=== PATIENT | male | born 1955 | race Caucasian/White ===

== ENCOUNTER 2018-05-22 11:59 | Inpatient (IN) | payer OTHER ==
--- NOTE | 2018-05-22 12:20 | PDOC ---
Attending Attestation - HPI HPI: 05/22/18 12:48 The patient is a 63-year-old male with significant past medical history of CHF, asthma, a fib, DM, hypercholeserolemia, anxiety, and depression, who presents to the emergency department today complaining of 4 days of diarrhea and shortness of breath. He describes his shortness of breath as similar to an episode in the past related to his CHF. The patient states that he has been non- compliant with his prescribed medications but took Tylenol yesterday. He also reports anterior sternal chest pain described as pressure. He endorses symptoms of headache, lightheadedness, and chills. He is currently incontinent and nauseous. Denies fever, diaphoresis. Allergies: NKA Social history: former cigarette smoker Surgical history: cardiac stent, tonsillectomy Family history: none reported PCP: unknown. - Physicial Exam PE: 05/22/18 12:36 ADULT Vitals: Triage vital signs reviewed General Appearance: (+)In acute distress, coughing. Well nourished, well developed Head: Atraumatic Cardiac: Regular rate and rhythm, no murmurs, no rubs, no gallops Lungs: (+) bilateral crackles at 2/3. Clear to auscultation bilateral, good air movement bilaterally Abdomen: Soft, nondistended, normal bowel sounds, nontender to palpation Extremities: (+) 1+ pitting edema bilateral lower extremities. Full range of motion to all extremities, no cyanosis, clubbing, or edema Skin: Warm and dry, no new rashes or lesions, no petechiae Neuro: AOX3; Cranial Nerves 2-12 grossly intact, Strength intact to all extremities, Sensation intact to all extremities, gait normal Psych: Normal mood, normal affect - Medical Decision Making 05/22/18 13:04 Documentation prepared by Jane Navarro, acting as medical territory manager for Jarret Miller MD. <Jane Navarro - Last Filed: 05/22/18 13:58> - Resident Resident Name: Nuno Sam - ED Attending Attestation I have performed the following: I have examined & evaluated the patient, The case was reviewed & discussed with the resident, I agree w/resident's findings & plan, Exceptions are as noted - Critical Care Time Total Critical Care Time: 45 Critical Care Statement: The care of this patient involved high complexity decision making to prevent further life threatening deterioration of the patient 's condition and/or to evaluate & treat vital organ system(s) failure or risk of failure. - Medical Decision Making The patient is a 63-year-old male with significant past medical history of CHF, asthma, a fib, DM, hypercholeserolemia, anxiety, and depression, who presents to the emergency department today complaining of 4 days of diarrhea and shortness of breath. He describes his shortness of breath as similar to an episode in the past related to his CHF. The patient states that he has been non- compliant with his prescribed medications but took Tylenol yesterday. He also reports anterior sternal chest pain described as pressure. He endorses symptoms of headache, lightheadedness, and chills. He is currently incontinent and nauseous. Patient presents to the emergency department in atrial fibrillation with RVR hypotensive and clinically with CHF exacerbation Given his hypotension we'll treat with Diltiazem drip starting at 5 mg/m and small dose Lasix Cardiology Dr. Us at bedside. Recommends second dose of Lasix and titrating up diltiazem Case discussed with patients primary care provider Dr. Do. We'll admit to telemetry for [place] for further management. <Jarret Miller - Last Filed: 05/22/18 16:51>
--- NOTE | 2018-05-22 12:31 | PDOC ---
History of Present Illness <PaulJarret - Last Filed: 05/22/18 14:12> - General History Source: Patient Exam Limitations: No Limitations - History of Present Illness Initial Comments: The patient is a 63M with a history of a-fib (Pradaxa), CHF (40-45%), and T2DM who presents with 4 days of worsening shortness of breath associated with a productive cough, chills, HAJI, mild substernal/non-radiating chest pressure, and BLE swelling. He denies fevers, dizziness, blurry vision, or abdominal pain. He states this feels like CHF exacerbations he has had in the past. Further, he states that he has not been taking his Pradaxa since he was recently discharged about a week ago 2/2 not being able to get it filled. He denies sick contacts. His magazine designer is Dr. Garber. 05/22/18 12:30 Timing/Duration: getting worse (4 days) Severity: moderate Associated Symptoms: reports: chest pain, cough, headaches, malaise. denies: syncope <Nuno Sam - Last Filed: 05/22/18 14:49> - General Chief Complaint: Shortness of Breath Stated Complaint: DIARRHEA Past History <PaulJarret - Last Filed: 05/22/18 14:12> - Travel Traveled outside of the country in the last 30 days: No Close contact w/someone who was outside of country & ill: No - Past Medical History Asthma: Yes Cardiac Disorders: Yes (A.fib) COPD: No CHF: Yes Diabetes: Yes HTN: Yes Hypercholesterolemia: Yes Psychiatric Problems: Yes (anxiety/depression) - Surgical History Cardiac Surgery: Yes (Cardiac Stent) Orthopedic Surgery: Yes - Suicide/Smoking/Psychosocial Hx Smoking History: Former smoker Have you smoked in the past 12 months: No Number of Cigarettes Smoked Daily: 4 Information on smoking cessation initiated: No 'Breaking Loose' booklet given: 02/07/18 Hx Alcohol Use: No Drug/Substance Use Hx: No Substance Use Type: None Hx Substance Use Treatment: No <Nuno Sma - Last Filed: 05/22/18 14:49> - Past Medical History Allergies/Adverse Reactions: Allergies Allergy/AdvReac Type Severity Reaction Status Date / Time No Known Allergies Allergy Verified 05/22/18 12:02 Home Medications: Ambulatory Orders Acetaminophen [Tylenol] 650 mg PO QID PRN 02/07/18 Albuterol 2.5/Ipratropium 0.5 [Duoneb -] 1 neb IH QID PRN 02/07/18 Albuterol 2.5/Ipratropium 0.5 [Duoneb -] 1 neb IH TID 02/07/18 Albuterol Sulfate Inhaler - [Ventolin Hfa Inhaler -] 1 - 2 inh PO Q4H 02/07/18 Aspirin 81 mg PO DAILY 02/07/18 Atorvastatin Calcium 40 mg PO HS 02/07/18 Fluticasone/Salmeterol [Advair Hfa 115-21 Mcg Inhaler] 2 inh PO BID 02/07/18 Guaifenesin [Diabetic Tussin Ex] 15 ml PO TID 02/07/18 Isosorbide Mononitrate 60 mg PO DAILY 02/07/18 Mag Hydrox/Al Hydrox/Simeth [Mylanta Oral Suspension -] 30 ml PO Q6H PRN Magnesium Oxide 800 mg PO DAILY 02/07/18 Methocarbamol [Robaxin -] 500 mg PO DAILY 02/07/18 Metoprolol Tartrate 100 mg PO BID 02/07/18 Mirtazapine [Remeron -] 15 mg PO HS 02/07/18 Montelukast Na [Singulair -] 10 mg PO DAILY 02/07/18 Polyethylene Glycol 3350 [Miralax 255 gm Btl -] 17 gm PO DAILY 02/07/18 Potassium Chloride [K-Tab ER] 20 meq PO DAILY 02/07/18 Ranitidine [Zantac -] 150 mg PO BID 02/07/18 Sennosides [Senna -] 2 tab PO HS 02/07/18 Trazodone HCl 100 mg PO HS 02/07/18 Albuterol Sulfate 0.042% [Ventolin 0.042% (Half-Strength) -] 1 amp NEB RQID amp 02/14/18 Amox-Tr/K Cl [Augmentin - 500Mg Tablet] 1 tab PO BID #14 tab 02/14/18 Dabigatran Etexilate Mesylate [Pradaxa -] 150 mg PO BID cap 02/14/18 Insulin Sliding Scale [Novolog Vial Sliding Scale -] 1 vial SQ ACHS units 02/14 Ipratropium 0.02% Nebulizer [Atrovent 0.02% Nebulizer -] 1 amp NEB RQID amp 04/28 Potassium Chloride [K-Dur -] 20 meq PO DAILY tablet.er 02/14/18 predniSONE [Deltasone -] 40 mg PO DAILY #30 tablet 02/14/18 Review of Systems - Review of Systems Able to Perform ROS?: Yes Is the patient limited Hungarian proficient: No Constitutional: Yes: Chills. No: Fever HEENTM: No: Blurred Vision, Double Vision, Nose Congestion, Throat Swelling Respiratory: Yes: Cough, Shortness of Breath, Wheezing, Productive cough. No: Hemoptysis Cardiac (ROS): Yes: Chest Pain, Edema, Irregular Heart Rate, Lightheadedness. No: Palpitations, Syncope ABD/GI: Yes: Diarrhea (without blood), Nausea. No: Abdominal Distended, Vomiting, Tarry Stools : No: Burning, Dysuria, Hematuria, Incontinence Musculoskeletal: No: Joint Swelling, Muscle Pain, Muscle Weakness Integumentary: No: Pruritus, Rash Neurological: Yes: Headache. No: Numbness, Paresthesia Psychiatric: No: Anxiety, Depression Endocrine: No: Intolerance to Cold, Intolerance to Heat Hematologic/Lymphatic: No: Anemia, Blood Clots <Nuno Sam - Last Filed: 05/22/18 14:49> *Physical Exam - Vital Signs Last Vital Signs Temp Pulse Resp BP Pulse Ox 98.7 F 163 H 24 140/118 97 05/22/18 12:02 05/22/18 13:28 05/22/18 12:02 05/22/18 13:28 05/22/18 12:02 <Jarret Miller - Last Filed: 05/22/18 14:12> - Vital Signs Last Vital Signs Temp Pulse Resp BP Pulse Ox 98.7 F 130 H 24 97/67 97 05/22/18 12:02 05/22/18 12:02 05/22/18 12:02 05/22/18 12:02 05/22/18 12:02 - Physical Exam General Appearance: Yes: Nourished, Moderate Distress (respiratory) HEENT: positive: EOMI, MARU, Normal Voice. negative: Scleral Icterus (R), Scleral Icterus (L) Neck: positive: Trachea midline, Supple. negative: Lymphadenopathy (R), Lymphadenopathy (L) Respiratory/Chest: positive: Respiratory Distress (moderate), Crackles ( bilateral, 2/3 up the lung bases) Cardiovascular: positive: Edema (1+ BLE to the mid lee), Tachycardia, Irregularly Irregular Vascular Pulses: Femoral (R): 2+, Femoral (L): 2+, Carotid (R): 2+, Carotid (L) : 2+, Dorsalis-Pedis (R): 2+, Doralis-Pedis (L): 2+ Gastrointestinal/Abdominal: positive: Normal Bowel Sounds, Soft, Protuberent. negative: Rebound, Tenderness Musculoskeletal: positive: Normal Inspection. negative: CVA Tenderness Extremity: positive: Normal Capillary Refill, Normal Range of Motion. negative : Cyanosis Integumentary: positive: Dry, Warm Neurologic: positive: Fully Oriented, Alert, Motor Strength 5/5 <Nuno Sam - Last Filed: 05/22/18 14:49> ED Treatment Course - LABORATORY CBC & Chemistry Diagram: 05/22/18 13:05 - ADDITIONAL ORDERS Additional order review: Laboratory Results 05/22/18 05/22/18 05/22/18 13:05 13:05 13:05 Sodium Potassium Chloride Carbon Dioxide Anion Gap BUN Creatinine Creat Clearance w eGFR Random Glucose Lactic Acid 2.5 H* Calcium Total Bilirubin AST ALT Alkaline Phosphatase Troponin I 0.04 D B-Natriuretic Peptide 4399.92 H Total Protein Albumin 05/22/18 13:05 Sodium 138 Potassium 3.4 L Chloride 99 Carbon Dioxide 29 Anion Gap 10 BUN 12 Creatinine 0.8 Creat Clearance w eGFR > 60 Random Glucose 110 H D Lactic Acid Calcium 7.8 L Total Bilirubin 1.0 AST 44 H D ALT 24 D Alkaline Phosphatase 182 H Troponin I B-Natriuretic Peptide Total Protein 7.4 Albumin 2.5 L - RADIOLOGY Radiology Studies Ordered: Category Date Time Status CHEST X-RAY PORTABLE* [RAD] Stat Radiology 05/22/18 12:18 Completed - Medications Given in the ED: ED Medications Discontinued Medications Generic Name Dose Route Start Last Admin Trade Name Freq PRN Reason Stop Dose Admin Furosemide 40 mg 05/22/18 12:39 05/22/18 13:10 Lasix Injection - IVPB 05/22/18 12:40 40 mg ONCE ONE Administration Ondansetron HCl 4 mg 05/22/18 13:26 05/22/18 13:36 Zofran Injection IVPUSH 05/22/18 13:27 4 mg ONCE ONE Administration <Jarret Miller - Last Filed: 05/22/18 14:12> - LABORATORY CBC & Chemistry Diagram: 05/22/18 13:05 <Nuno Sam - Last Filed: 05/22/18 14:49> Medical Decision Making - Medical Decision Making The patient is a 63M with a history of a-fib, CHF, and T2DM who presents with 4 days of worsening shortness of breath, BLE swelling, cough, and 1 day of non- radiating substernal chest pain and HAJI who has also not taken his Pradaxa since being discharged approximately 1 week ago. Ddx: PE, PNA, PNX, CHF exacerabtion, COPD exacerbation, Severe Sepsis, Septic shock, cardiogenic shock ED course: CBC, CMP, BNP, Blood cultures, UA, Urine culture, CXR, CT PE protocol Diltiazem gtt started at 5mg/hour, the patient's pressure improved and was titrated slowly up to 10mg/hr and then 15mg/hr The patient was also given Lasix 40mg IVP once for hypervolemia The patient's BNP is elevated. The patient's BP improved s/p diltiazem gtt initiation. The Cr is 0.8 and the patient also received and additional Lasix 60mg IVP once s/p evaluation by Cardiology. Dispo: Admission to floor with telemetry under Dr. Wooten for CHF exacerbation. 05/22/18 12:58 <Nuno Sam - Last Filed: 05/22/18 14:49> *DC/Admit/Observation/Transfer - Discharge Dispostion Decision to Admit order: Yes <Jarret Miller - Last Filed: 05/22/18 14:12> - Discharge Dispostion Decision to Admit order: Yes <Nuno Sam - Last Filed: 05/22/18 14:49> Diagnosis at time of Disposition: CHF exacerbation Qualifiers: Heart failure type: unspecified Qualified Code(s): I50.9 - Heart failure, unspecified
[2018-05-22] MEDS ORDERED: FUROSEMIDE 100 MG/10 ML INJECTABLE VIAL IVPB ONE (12:39)
[2018-05-22] MEDS ORDERED: FUROSEMIDE 40 MG/4 ML INJECTABLE VIAL ONE ×2 (12:58→14:46)
[2018-05-22] MEDS ORDERED: dilTIAZem HCL 125 MG/25 ML - 25 ML VIAL ONE (12:59)
[2018-05-22] MEDS ORDERED: dilTIAZem HCL 50 MG/10 ML - 10 ML VIAL ONE (13:00)
[2018-05-22] MEDS: DILTIAZEM INJECTION 125 MG in SODIUM CHLORIDE 100 ML IVPB SCH (13:26)
[2018-05-22] MEDS ORDERED: ONDANSETRON 4 MG/2 ML VIAL IVPUSH ONE (13:26)
[2018-05-22] MEDS ORDERED: ONDANSETRON 4 MG/2 ML VIAL ONE (13:27)
[2018-05-22] MEDS ORDERED: ACETAMINOPHEN 1000 MG/100 ML VIAL (NON FORMULARY) IVPB ONE (13:28)
[2018-05-22 13:52] LABS: ALBUMIN 2.5 g/dl (3.4-5.0); ANION GAP 10 (8-16); BLOOD UREA NITROGEN 12 mg/dL (7-18); CALCIUM 7.8 mg/dL (8.5-10.1); CHLORIDE 99 mmol/L (98-107); CO2 29 mmol/L (21-32); CREATININE 0.8 mg/dL (0.7-1.3); GLUCOSE,RANDOM 110 mg/dL (74-106); SGPT/ALT 24 U/L (12-78); SODIUM 138 mmol/L (136-145); TOT PROT 7.4 g/dl (6.4-8.2)
[2018-05-22 13:53] LABS: ALK PHOS 182 U/L (45-117)
[2018-05-22 13:56] LABS: POTASSIUM 3.4 mmol/L (3.5-5.1); SGOT/AST 44 U/L (15-37)
[2018-05-22] MEDS ORDERED: FUROSEMIDE 40 MG/4 ML INJECTABLE VIAL IVPUSH ONE (13:56)
[2018-05-22 14:08] LABS: INR 1.17 (0.82-1.09); PROTHROMBIN TIME (PATIENT) 13.2 SEC (9.7-13.0)
[2018-05-22 14:11] LABS: ACTIVATED PTT 41.4 SECONDS (25.2-36.5)
[2018-05-22 14:44] LABS: URINE APPEARANCE CLEAR; URINE BILIRUBIN NEGATIVE (<2.0 mg/dL); URINE COLOR STRAW; URINE GLUCOSE (UA) NEGATIVE (NEGATIVE); URINE KETONE NEGATIVE (NEGATIVE); URINE LEUK ESTERASE NEGATIVE (NEGATIVE); URINE NITRITE NEGATIVE (NEGATIVE); URINE PROTEIN NEGATIVE (NEGATIVE); URINE UROBILINOGEN NEGATIVE mg/dL (0.2-1.0)
[2018-05-22] MEDS ORDERED: ACETAMINOPHEN INJECTION 100 ML IVPB ONE (14:46)
[2018-05-22 14:57] LABS: BASO % 0.6 % (0-2.0); EOS % 0.1 % (0-4.5); HEMATOCRIT 43.9 % (35.4-49); HEMOGLOBIN 14.2 GM/dL (11.7-16.9); LYMPH % 7.7 % (8-40); MCH 28.3 pg (25.7-33.7); MCHC 32.3 g/dl (32.0-35.9); MEAN CELL VOLUME 87.5 fl (80-96); MEAN PLT VOLUME 8.6 fl (7.5-11.1); MONO % 11.5 % (3.8-10.2); NEUT % 80.1 % (42.8-82.8); PLATELET COUNT 241 K/MM3 (134-434); RBC 5.01 M/mm3 (4.00-5.60); RDW 17.6 % (11.9-15.9); WHITE BLOOD COUNT 7.2 K/mm3 (4.0-10.0)
--- NOTE | 2018-05-22 14:57 | CON.CARD ---
Consult Consult Specialty:: cardiology Referred by:: Sugar Reason for Consultation:: Rapid atrial fibrillation and shortness of breath - History of Present Illness Chief Complaint: Shortness of breath History of Present Illness: The patient is a 63-year-old obese man, with a history of diabetes, hypertension , hyperlipidemia, chronic atrial fibrillation on Pradaxa, noncompliant, now presenting with generalized malaise, productive cough and chills with shortness of breath, and rapid atrial fibrillation. Patient had relative hypotension. - History Source History Provided By: Patient, Medical Record Limitations to Obtaining History: No Limitations - Past Medical History Cardio/Vascular: Yes: AFIB, CAD, HTN, Other (atrial fibrillation) Pulmonary: Yes: COPD Infectious Disease: Yes: Other (pneumonia and the flu) - Alcohol/Substance Use Hx Alcohol Use: No - Smoking History Smoking history: Former smoker Have you smoked in the past 12 months: No Aproximately how many cigarettes per day: 4 Home Medications - Allergies Allergies/Adverse Reactions: Allergies Allergy/AdvReac Type Severity Reaction Status Date / Time No Known Allergies Allergy Verified 05/22/18 12:02 - Home Medications Home Medications: Ambulatory Orders Acetaminophen [Tylenol] 650 mg PO QID PRN 02/07/18 Albuterol 2.5/Ipratropium 0.5 [Duoneb -] 1 neb IH QID PRN 02/07/18 Albuterol 2.5/Ipratropium 0.5 [Duoneb -] 1 neb IH TID 02/07/18 Albuterol Sulfate Inhaler - [Ventolin Hfa Inhaler -] 1 - 2 inh PO Q4H 02/07/18 Aspirin 81 mg PO DAILY 02/07/18 Atorvastatin Calcium 40 mg PO HS 02/07/18 Fluticasone/Salmeterol [Advair Hfa 115-21 Mcg Inhaler] 2 inh PO BID 02/07/18 Guaifenesin [Diabetic Tussin Ex] 15 ml PO TID 02/07/18 Isosorbide Mononitrate 60 mg PO DAILY 02/07/18 Mag Hydrox/Al Hydrox/Simeth [Mylanta Oral Suspension -] 30 ml PO Q6H PRN Magnesium Oxide 800 mg PO DAILY 02/07/18 Methocarbamol [Robaxin -] 500 mg PO DAILY 02/07/18 Metoprolol Tartrate 100 mg PO BID 02/07/18 Mirtazapine [Remeron -] 15 mg PO HS 02/07/18 Montelukast Na [Singulair -] 10 mg PO DAILY 02/07/18 Polyethylene Glycol 3350 [Miralax 255 gm Btl -] 17 gm PO DAILY 02/07/18 Potassium Chloride [K-Tab ER] 20 meq PO DAILY 02/07/18 Ranitidine [Zantac -] 150 mg PO BID 02/07/18 Sennosides [Senna -] 2 tab PO HS 02/07/18 Trazodone HCl 100 mg PO HS 02/07/18 Albuterol Sulfate 0.042% [Ventolin 0.042% (Half-Strength) -] 1 amp [facility] RQID amp 02/14/18 Amox-Tr/K Cl [Augmentin - 500Mg Tablet] 1 tab PO BID #14 tab 02/14/18 Dabigatran Etexilate Mesylate [Pradaxa -] 150 mg PO BID cap 02/14/18 Insulin Sliding Scale [Novolog Vial Sliding Scale -] 1 vial SQ ACHS units 02/14 Ipratropium 0.02% Nebulizer [Atrovent 0.02% Nebulizer -] 1 amp NEB RQID amp 04/28 Potassium Chloride [K-Dur -] 20 meq PO DAILY tablet.er 02/14/18 predniSONE [Deltasone -] 40 mg PO DAILY #30 tablet 02/14/18 Review of Systems - Review of Systems Constitutional: reports: Chills, Diaphoresis, Lethargy, Malaise Eyes: reports: No Symptoms HENT: reports: No Symptoms Neck: reports: No Symptoms Cardiovascular: reports: Palpitations, Shortness of Breath Respiratory: reports: SOB Gastrointestinal: reports: No Symptoms Genitourinary: reports: No Symptoms Breasts: reports: No Symptoms Reported Musculoskeletal: reports: No Symptoms Integumentary: reports: No Symptoms Neurological: reports: No Symptoms - Risk Factors Known Risk Factors: Yes: Diabetes Mellitus, Hypercholesterolemia, Hypertension Vital Signs: Vital Signs Temperature 98.7 F 05/22/18 12:02 Pulse Rate 163 H 05/22/18 13:28 Respiratory Rate 24 05/22/18 12:02 Blood Pressure 140/118 05/22/18 13:28 O2 Sat by Pulse Oximetry (%) 97 05/22/18 12:02 Constitutional: Yes: Obese Eyes: Yes: WNL, Conjunctiva Clear, EOM Intact HENT: Yes: WNL, Atraumatic, Normocephalic Neck: Yes: WNL, Supple, Trachea Midline Respiratory: Yes: Cough, On Nasal O2, Tachypnea Gastrointestinal: Yes: WNL, Normal Bowel Sounds, Soft Renal/: Yes: WNL Cardiovascular: Yes: Tachycardia, Pulse Irregular JVD: No Carotid Bruit: No PMI: Non-Displaced Heart Sounds: Yes: S1, S2 Murmur: Yes: Systolic Murmur, Grade 2 Musculoskeletal: Yes: WNL Edema: Yes Edema: LLE: 1+, RLE: 1+ Peripheral Pulses: 1+ Left Carotid, 1+ Right Carotid, 1+ Left Femoral, 1+ Right Femoral, 1+ Left Popliteal, 1+ Right Popliteal, 1+ Left Doralis Pedis, 1+ Right Dorsalis Pedis Integumentary: Yes: WNL Neurological: Yes: WNL, Alert, Oriented Psychiatric: Yes: WNL - Other Data Labs, Other Data: CBC, BMP 05/22/18 13:05 INR, PTT INR 1.17 (0.82-1.09) H 05/22/18 13:05 Troponin, BNP 05/22/18 05/22/18 13:05 13:05 Troponin I 0.04 D B-Natriuretic Peptide 4399.92 H Troponin, BNP 05/22/18 05/22/18 13:05 13:05 Troponin I 0.04 D B-Natriuretic Peptide 4399.92 H Assessment/Plan 63-year-old obese man with a history of diabetes, hypertension, hyperlipidemia, COPD, chronic atrial fibrillation on pradaxa, noncompliant, now presenting with generalized malaise chills and shortness of breath. Found to be in rapid atrial fibrillation. Patient was initially relative hypotensive. He is in mild respiratory distress. No chest pains. Chest x-ray revealed no evidence of pneumonia and lower CHF. Most likely COPD exacerbation with mild pulmonary congestion. Give Lasix 60 mg IV, once Start a Cardizem drip. Up titrate the rate control. If blood pressure allows; would start Cardizem 30 mg by mouth every 6 hours. If blood pressure does not allow; please load with digoxin. Please arrange for an echocardiogram. Admit to a monitored setting. The patient seems to be responding to treatment.
--- NOTE | 2018-05-22 15:21 | HP ---
Admitting History and Physical - Admission Chief Complaint: sob and increased leg swelling History of Present Illness: The patient is a 63-year-old male with significant past medical history of CHF, asthma, a fib, DM, hypercholeserolemia, anxiety, and depression, who presents to the emergency department today complaining of 4 days of diarrhea and shortness of breath. He describes his shortness of breath as similar to an episode in the past related to his CHF. The patient states that he has been non- compliant with his prescribed medications but took Tylenol yesterday. He also reports anterior sternal chest pain described as pressure. He endorses symptoms of headache, lightheadedness, and chills. He is currently incontinent and nauseous. found to be in rapid afib with low BP started on cardizem drip got iv lasix 40mg then folowed by 60mg iv lasix above history from medical record i tried to ask patient questions but he says he is sick and cannot talk only was able to tell me that he is short of breath and increased leg swelling History Source: Medical Record - Past Medical History Cardiovascular: Yes: AFIB, CAD, HTN, Other (atrial fibrillation) Pulmonary: Yes: COPD Infectious Disease: Yes: Other (pneumonia and the flu) - Smoking History Smoking history: Former smoker Have you smoked in the past 12 months: No Aproximately how many cigarettes per day: 4 - Alcohol/Substance Use Hx Alcohol Use: No Home Medications - Allergies Allergies/Adverse Reactions: Allergies Allergy/AdvReac Type Severity Reaction Status Date / Time No Known Allergies Allergy Verified 05/22/18 12:02 - Home Medications Home Medications: Ambulatory Orders Acetaminophen [Tylenol] 650 mg PO QID PRN 02/07/18 Albuterol 2.5/Ipratropium 0.5 [Duoneb -] 1 neb IH QID PRN 02/07/18 Albuterol 2.5/Ipratropium 0.5 [Duoneb -] 1 neb IH TID 02/07/18 Albuterol Sulfate Inhaler - [Ventolin Hfa Inhaler -] 1 - 2 inh PO Q4H 02/07/18 Aspirin 81 mg PO DAILY 02/07/18 Atorvastatin Calcium 40 mg PO HS 02/07/18 Fluticasone/Salmeterol [Advair Hfa 115-21 Mcg Inhaler] 2 inh PO BID 02/07/18 Guaifenesin [Diabetic Tussin Ex] 15 ml PO TID 02/07/18 Isosorbide Mononitrate 60 mg PO DAILY 02/07/18 Mag Hydrox/Al Hydrox/Simeth [Mylanta Oral Suspension -] 30 ml PO Q6H PRN Magnesium Oxide 800 mg PO DAILY 02/07/18 Methocarbamol [Robaxin -] 500 mg PO DAILY 02/07/18 Metoprolol Tartrate 100 mg PO BID 02/07/18 Mirtazapine [Remeron -] 15 mg PO HS 02/07/18 Montelukast Na [Singulair -] 10 mg PO DAILY 02/07/18 Polyethylene Glycol 3350 [Miralax 255 gm Btl -] 17 gm PO DAILY 02/07/18 Potassium Chloride [K-Tab ER] 20 meq PO DAILY 02/07/18 Ranitidine [Zantac -] 150 mg PO BID 02/07/18 Sennosides [Senna -] 2 tab PO HS 02/07/18 Trazodone HCl 100 mg PO HS 02/07/18 Albuterol Sulfate 0.042% [Ventolin 0.042% (Half-Strength) -] 1 amp NEB RQID amp 02/14/18 Amox-Tr/K Cl [Augmentin - 500Mg Tablet] 1 tab PO BID #14 tab 02/14/18 Dabigatran Etexilate Mesylate [Pradaxa -] 150 mg PO BID cap 02/14/18 Insulin Sliding Scale [Novolog Vial Sliding Scale -] 1 vial SQ ACHS units 02/14 Ipratropium 0.02% Nebulizer [Atrovent 0.02% Nebulizer -] 1 amp NEB RQID amp 04/28 Potassium Chloride [K-Dur -] 20 meq PO DAILY tablet.er 02/14/18 predniSONE [Deltasone -] 40 mg PO DAILY #30 tablet 02/14/18 Review of Systems - Review of Systems Cardiovascular: reports: Edema, Shortness of Breath Respiratory: reports: Cough, SOB Physical Examination Vital Signs: Vital Signs Temperature 98.7 F 05/22/18 12:02 Pulse Rate 163 H 05/22/18 13:28 Respiratory Rate 24 05/22/18 12:02 Blood Pressure 140/118 05/22/18 13:28 O2 Sat by Pulse Oximetry (%) 97 05/22/18 12:02 Cardiovascular: Yes: Pulse Irregular, S1, S2 Respiratory: Yes: On Nasal O2, Rhonchi, Wheezes Gastrointestinal: Yes: Normal Bowel Sounds, Soft, Abdomen, Obese Edema: Yes Neurological: Yes: Alert, Oriented Labs: CBC, BMP 05/22/18 14:50 05/22/18 13:05 Imaging - Results Chest X-ray: Report Reviewed Problem List - Problems (1) Shortness of breath Assessment/Plan: copd / vascular congestion iv lasix trend bnp bronchodilators pulm consult oxygen CT chest sputum culture iv steroids Code(s): R06.02 - SHORTNESS OF BREATH (2) Atrial fibrillation Assessment/Plan: telemtry iv cardizem drip echo cardiac monitoring cardiology on board Code(s): I48.91 - UNSPECIFIED ATRIAL FIBRILLATION Qualifiers: Atrial fibrillation type: persistent Qualified Code(s): I48.1 - Persistent atrial fibrillation (3) COPD (chronic obstructive pulmonary disease) Code(s): J44.9 - CHRONIC OBSTRUCTIVE PULMONARY DISEASE, UNSPECIFIED (4) Hypercholesterolemia Code(s): E78.0 - PURE HYPERCHOLESTEROLEMIA * DO NOT USE * (5) Diabetes Assessment/Plan: bgm sliding scale hgb1c Code(s): E11.9 - TYPE 2 DIABETES MELLITUS WITHOUT COMPLICATIONS Qualifiers: Diabetes mellitus type: type 2 Diabetes mellitus [facility] insulin use: without executive creative director use Diabetes mellitus complication status: without complication Qualified Code(s): E11.9 - Type 2 diabetes mellitus without complications
[2018-05-22] MEDS ORDERED: IPRATROPIUM BR 0.02% 0.5 MG/2.5 ML VIAL.NEB. NEB ONE (15:35)
[2018-05-22] MEDS: POTASSIUM CHLORIDE TABS 20 MEQ TABLET.ER (FP) PO SCH ×2 (15:42→16:28)
[2018-05-22] MEDS: IPRATROPIUM BR 0.02% 0.5 MG/2.5 ML VIAL.NEB. NEB SCH ×2 (15:42→20:53)
[2018-05-22] MEDS ORDERED: SIMETHICONE 80 MG TAB.CHEW (FP) PO ONE (16:24)
[2018-05-22] MEDS: INSULIN SLIDING SCALE (NOVOLOG) 1 VIAL SQ SCH ×2 (16:39→21:40)
[2018-05-22] MEDS ORDERED: methylPREDNISolone NA SUCC 40 MG/1 ML VIAL ONE (18:41)
[2018-05-22] MEDS ORDERED: ENOXAPARIN NA (PORCINE) 80 MG/0.8 ML DISP.SYRIN SQ ONE (18:46)
[2018-05-22 18:47] LABS: ANISOCYTOSIS 1+; PLATELET ESTIMATE ADEQUATE
[2018-05-22] MEDS: methylPREDNISolone NA SUCC 40 MG/1 ML VIAL IVPB SCH (18:55)
[2018-05-22] MEDS ORDERED: traZODone HCL 50 MG TABLET (FP) ONE (20:43)
[2018-05-22] MEDS: ATORVASTATIN CA 40 MG TABLET (FP) PO SCH (21:35)
[2018-05-22] MEDS: MONTELUKAST NA 10 MG TABLET PO SCH (21:35)
[2018-05-22] MEDS: DABIGATRAN ETEXILATE MESYLATE 150 MG CAPSULE PO SCH (21:35)
[2018-05-22] MEDS: traZODone HCL 100 MG TABLET (FP) PO SCH (21:36)
[2018-05-22] MEDS: BUDESONIDE/FORMETEROL FUMARATE 160/4.5 mcg INHALER IH SCH (23:08)
[2018-05-22] MEDS ORDERED: ACETAMINOPHEN 325 MG TABLET (FP) PO ONE (23:38)
[2018-05-22] MEDS: guaiFENesin 200 MG/10 ML 10 ML UNIT-DOSE CUPS PO PRN (23:55)
[2018-05-23] MEDS: methylPREDNISolone NA SUCC 40 MG/1 ML VIAL IVPB SCH ×3 (01:57→17:04)
[2018-05-23] MEDS: DILTIAZEM INJECTION 125 MG in SODIUM CHLORIDE 100 ML IVPB SCH (03:00)
[2018-05-23] MEDS: FUROSEMIDE 40 MG/4 ML INJECTABLE VIAL IVPUSH SCH ×2 (05:59→14:07)
[2018-05-23] MEDS: guaiFENesin 200 MG/10 ML 10 ML UNIT-DOSE CUPS PO PRN ×3 (06:01→21:15)
[2018-05-23] MEDS: INSULIN SLIDING SCALE (NOVOLOG) 1 VIAL SQ SCH ×4 (06:03→21:18)
[2018-05-23 06:38] LABS: HEMATOCRIT 38.3 % (35.4-49); HEMOGLOBIN 12.6 GM/dL (11.7-16.9); MCH 28.8 pg (25.7-33.7); MEAN CELL VOLUME 87.1 fl (80-96); MEAN PLT VOLUME 8.8 fl (7.5-11.1); PLATELET COUNT 189 K/MM3 (134-434); RBC 4.39 M/mm3 (4.00-5.60); WHITE BLOOD COUNT 4.6 K/mm3 (4.0-10.0)
[2018-05-23 07:08] LABS: CALCIUM 7.5 mg/dL (8.5-10.1); CHLORIDE 98 mmol/L (98-107); POTASSIUM 3.3 mmol/L (3.5-5.1); SODIUM 139 mmol/L (136-145)
[2018-05-23 07:17] LABS: ALBUMIN 2.3 g/dl (3.4-5.0); ALK PHOS 147 U/L (45-117); ANION GAP 10 (8-16); BILIRUBIN,TOTAL 1.1 mg/dL (0.2-1.0); BLOOD UREA NITROGEN 15 mg/dL (7-18); CHOLESTEROL 73 mg/dL (50-200); CO2 31 mmol/L (21-32); CREATININE 0.7 mg/dL (0.7-1.3); GLUCOSE,RANDOM 133 mg/dL (74-106); HDL CHOLESTEROL 25 mg/dL (40-60); MAGNESIUM 1.3 mg/dL (1.8-2.4); N-TERMINAL BNP 3645.72 pg/ml (5-125); PHOSPHOROUS 4.4 mg/dL (2.5-4.9); SGOT/AST 41 U/L (15-37); SGPT/ALT 21 U/L (12-78); TOT PROT 6.9 g/dl (6.4-8.2); TRIGLYCERIDES 51 mg/dL (35-160)
[2018-05-23] MEDS: IPRATROPIUM BR 0.02% 0.5 MG/2.5 ML VIAL.NEB. NEB SCH ×4 (07:55→20:43)
--- NOTE | 2018-05-23 08:56 | EKG ---
Test Reason : Blood Pressure : / mmHG Vent. Rate : 140 BPM Atrial Rate : 144 BPM P-R Int : 000 ms QRS Dur : 086 ms QT Int : 358 ms P-R-T Axes : 000 011 049 degrees QTc Int : 546 ms POOR DATA QUALITY, INTERPRETATION MAY BE ADVERSELY AFFECTED ATRIAL FIBRILLATION WITH RAPID VENTRICULAR RESPONSE NONSPECIFIC ST AND T WAVE ABNORMALITY ABNORMAL ECG Confirmed by KAYLA PIERRE MD ([id number]) on 05/23/2018 8:56:10 AM Referred By: Confirmed By:KAYLA PIERRE MD
[2018-05-23] MEDS: ASPIRIN COATED 81 MG TABLET.EC PO SCH (09:50)
[2018-05-23] MEDS: POTASSIUM CHLORIDE TABS 20 MEQ TABLET.ER (FP) PO SCH (09:50)
[2018-05-23] MEDS: RANITIDINE HCL 150 MG TABLET (FP) PO SCH (09:50)
[2018-05-23] MEDS: DABIGATRAN ETEXILATE MESYLATE 150 MG CAPSULE PO SCH ×2 (09:50→21:14)
[2018-05-23] MEDS: BUDESONIDE/FORMETEROL FUMARATE 160/4.5 mcg INHALER IH SCH ×2 (09:51→21:13)
[2018-05-23] MEDS ORDERED: MAGNESIUM SULF 50% (8.12 MEQ/2 ML-1 GM VIAL) IVPB ONE (10:12)
--- NOTE | 2018-05-23 11:12 | PN ---
Progress Note, Physician Chief Complaint: patient seen and examined says his breathing is better getting ECho done on cardizem drip BP and HR much better - Current Medication List Current Medications: Active Medications Aspirin (Ecotrin -) 81 mg PO DAILY [facility] Last Admin: 05/23/18 09:50 Dose: 81 mg Atorvastatin Calcium (Lipitor -) 40 mg PO HS [facility] Last Admin: 05/22/18 21:35 Dose: 40 mg Budesonide/Formoterol Fumarate (Symbicort 160/4.5mcg -) 2 puff IH BID [facility] Last Admin: 05/23/18 09:51 Dose: 2 puff Dabigatran (Pradaxa -) 150 mg PO BID [facility] Last Admin: 05/23/18 09:50 Dose: 150 mg Diltiazem HCl (Cardizem -) 30 mg PO Q6HPO [facility] Furosemide (Lasix Injection -) 40 mg IVPUSH BID@0600,1400 [facility] Last Admin: 05/23/18 05:59 Dose: 40 mg Guaifenesin (Robitussin -) 10 ml PO Q6H PRN PRN Reason: COUGH Last Admin: 05/23/18 06:01 Dose: 10 ml Diltiazem HCl 125 mg/ Sodium (Chloride) 125 mls @ 5 mls/hr IVPB TITR [facility]; Protocol Stop: 05/23/18 12:00 Last Titration: 05/23/18 06:12 Dose: 2.5 mg/hr, 2.5 mls/hr Magnesium Sulfate (Magnesium Sulf 2 G/50 Ml Bag) 2 gm in 50 mls @ 50 mls/hr IVPB ONCE ONE Stop: 05/23/18 12:59 Insulin Aspart (Novolog Vial Sliding Scale -) 1 vial SQ ACHS [facility]; Protocol Last Admin: 05/23/18 06:03 Dose: Not Given Ipratropium [place] (Atrovent 0.02% Nebulizer -) 1 amp NEB RQID [facility] Last Admin: 05/23/18 07:55 Dose: 1 amp Methylprednisolone Sodium Succinate (Solu-Medrol -) 40 mg IVPB Q8H-IV [facility] Last Admin: 05/23/18 09:51 Dose: 40 mg Montelukast Sodium (Singulair -) 10 mg PO HS [facility] Last Admin: 05/22/18 21:35 Dose: 10 mg Potassium Chloride (K-Dur -) 20 meq PO DAILY [facility] Last Admin: 05/23/18 09:50 Dose: 20 meq Ranitidine HCl (Zantac -) 150 mg PO DAILY [facility] Last Admin: 05/23/18 09:50 Dose: 150 mg Trazodone HCl (Desyrel -) 100 mg PO HS [facility] Last Admin: 05/22/18 21:36 Dose: 100 mg - Objective Vital Signs: Vital Signs Temperature 98.5 F 05/23/18 05:00 Pulse Rate 91 H 05/23/18 09:00 Respiratory Rate 20 05/23/18 09:00 Blood Pressure 122/58 05/23/18 09:00 O2 Sat by Pulse Oximetry (%) 94 L 05/23/18 09:00 Cardiovascular: Yes: Pulse Irregular, S1, S2 Respiratory: Yes: On Nasal O2, Rhonchi, Wheezes (on expiration) Gastrointestinal: Yes: Normal Bowel Sounds, Soft, Abdomen, Obese Edema: Yes Neurological: Yes: Alert, Oriented Labs: CBC, BMP 05/23/18 05:30 05/23/18 05:30 INR, PTT INR 1.17 (0.82-1.09) H 05/22/18 13:05 Problem List - Problems (1) Shortness of breath Assessment/Plan: copd exacerbatin with/ vascular congestion iv lasix trend bnp- now trending down bronchodilators pulm consult oxygen via nasal canula CT chest to evaluate the lung nodules as seen on previous ct scan dvt ppx sputum culture iv steroids inc LFT most likley secondary to hepatic congestion and now down trending Code(s): R06.02 - SHORTNESS OF BREATH (2) Atrial fibrillation Assessment/Plan: telemetry on pradaxa iv cardizem drip- stop and start po cardizem echo cardiac monitoring cardiology on board Code(s): I48.91 - UNSPECIFIED ATRIAL FIBRILLATION Qualifiers: Atrial fibrillation type: persistent Qualified Code(s): I48.1 - Persistent atrial fibrillation (3) COPD (chronic obstructive pulmonary disease) Assessment/Plan: iv steroids oxygen bronchodilators Code(s): J44.9 - CHRONIC OBSTRUCTIVE PULMONARY DISEASE, UNSPECIFIED (4) Hypercholesterolemia Assessment/Plan: lipid panel statin Code(s): E78.0 - PURE HYPERCHOLESTEROLEMIA * DO NOT USE * (5) Diabetes Assessment/Plan: bgm sliding scale hgb1c Code(s): E11.9 - TYPE 2 DIABETES MELLITUS WITHOUT COMPLICATIONS Qualifiers: Diabetes mellitus type: type 2 Diabetes mellitus half-way insulin use: without half-way use Diabetes mellitus complication status: without complication Qualified Code(s): E11.9 - Type 2 diabetes mellitus without complications (6) Electrolyte abnormality Assessment/Plan: repleted potassium and magnesium recheck labs in AM Code(s): E87.8 - OTH DISORDERS OF ELECTROLYTE AND FLUID BALANCE, NEC
[2018-05-23] MEDS: dilTIAZem HCL 30 MG TABLET (FP) PO SCH ×3 (11:18→23:05)
--- NOTE | 2018-05-23 11:47 | ECHO ---
Name: HENSLEY, COLTON Exam:Adult Echocardiogram Study Date: 05/23/2018 10:27 AM Reason For Study: Chest pain Height: 66 in Weight: 199 lb BSA: 2.0 m2 MMode/2D Measurements & Calculations IVSd: 1.0 cm LVPWs: 0.90 cm LVIDd: 5.6 cm LVIDs: 4.4 cm LVPWd: 0.81 cm EDV(Teich): 153.2 ml LVOT diam: 2.6 cm ESV(Teich): 87.9 ml LAV (MOD-bp): 57.0 ml Doppler Measurements & Calculations MV V2 max: 146.5 cm/sec MV E max akbar: 114.5 cm/sec MV max P.6 mmHg MV dec time: 0.19 sec MV V2 mean: 86.5 cm/sec MV mean P.6 mmHg MV V2 VTI: 34.7 cm MR max akbar: 258.9 cm/sec TR max akbar: 206.8 cm/sec MR max P.8 mmHg TR max P.8 mmHg Med Peak E' Akbar: 9.4 cm/sec Med E/e': 12.2 Lat Peak E' Akbar: 9.8 cm/sec Lat E/e': 11.6 Procedure The study was technically difficult with many images being suboptimal in quality. Left Ventricle The left ventricle is mildly dilated. Although wall motion is not well seen, left ventricular systoli c function appears severely reduced. The transmitral spectral Doppler flow pattern is suggestive of res trictive physiology. Regional wall motion abnormalities cannot be excluded due to limited visualization. The p apillary muscle tip is fibrocalcific. Right Ventricle The right ventricle is grossly normal size. The right ventricular systolic function is grossly normal . Atria The left atrium is mildly dilated. Mitral Valve The mitral valve is normal in structure and function. There is moderate mitral regurgitation. Tricuspid Valve The tricuspid valve is not well visualized, but is grossly normal. There is mild tricuspid regurgitat ion. Aortic Valve The aortic valve opens well. No hemodynamically significant valvular aortic stenosis. No aortic regur gitation is present. Pulmonic Valve The pulmonic valve is not well seen, but is grossly normal. There is no pulmonic valvular stenosis. M ild pulmonic valvular regurgitation. Great Vessels The aortic root is normal size. Pericardium/Pleura There is no pericardial effusion. Interpretation Summary The study was technically difficult with many images being suboptimal in quality. Regional wall motion abnormalities cannot be excluded due to limited visualization. The left ventricle is mildly dilated. The transmitral spectral Doppler flow pattern is suggestive of restrictive physiology. Although wall motion is not well seen, left ventricular systolic function appears severely reduced. The left atrium is mildly dilated. There is moderate mitral regurgitation. There is mild tricuspid regurgitation. MD Sarthak Romero 05/23/2018 11:47 AM
[2018-05-23] MEDS ORDERED: MAGNESIUM SULFATE IN WATER 2 GM/50 ML IVPB IVPB ONE (12:00)
--- NOTE | 2018-05-23 13:13 | PN ---
Progress Note, Physician History of Present Illness: 63-year-old obese man, with a history of diabetes, hypertension, hyperlipidemia , COPD, chronic atrial fibrillation on anticoagulation, noncompliant, now admitted with URI symptoms, in rapid atrial fibrillation. No CHF. No evidence of ischemia nor acute coronary syndrome. - Current Medication List Current Medications: Active Medications Aspirin (Ecotrin -) 81 mg PO DAILY [facility] Last Admin: 05/23/18 09:50 Dose: 81 mg Atorvastatin Calcium (Lipitor -) 40 mg PO HS [facility] Last Admin: 05/22/18 21:35 Dose: 40 mg Budesonide/Formoterol Fumarate (Symbicort 160/4.5mcg -) 2 puff IH BID [facility] Last Admin: 05/23/18 09:51 Dose: 2 puff Dabigatran (Pradaxa -) 150 mg PO BID [facility] Last Admin: 05/23/18 09:50 Dose: 150 mg Diltiazem HCl (Cardizem -) 30 mg PO Q6HPO [facility] Last Admin: 05/23/18 11:18 Dose: 30 mg Furosemide (Lasix Injection -) 40 mg IVPUSH BID@0600,1400 [facility] Last Admin: 05/23/18 05:59 Dose: 40 mg Guaifenesin (Robitussin -) 10 ml PO Q6H PRN PRN Reason: COUGH Last Admin: 05/23/18 12:25 Dose: 10 ml Insulin Aspart (Novolog Vial Sliding Scale -) 1 vial SQ [facility]; Protocol Last Admin: 05/23/18 11:17 Dose: Not Given Ipratropium [place] (Atrovent 0.02% Nebulizer -) 1 amp NEB RQID [facility] Last Admin: 05/23/18 12:00 Dose: 1 amp Methylprednisolone Sodium Succinate (Solu-Medrol -) 40 mg IVPB Q8H-IV [facility] Last Admin: 05/23/18 09:51 Dose: 40 mg Montelukast Sodium (Singulair -) 10 mg PO HS [facility] Last Admin: 05/22/18 21:35 Dose: 10 mg Potassium Chloride (K-Dur -) 20 meq PO DAILY [facility] Last Admin: 05/23/18 09:50 Dose: 20 meq Ranitidine HCl (Zantac -) 150 mg PO DAILY [facility] Last Admin: 05/23/18 09:50 Dose: 150 mg Trazodone HCl (Desyrel -) 100 mg PO HS [facility] Last Admin: 05/22/18 21:36 Dose: 100 mg - Objective Vital Signs: Vital Signs Temperature 98.5 F 05/23/18 05:00 Pulse Rate 109 H 05/23/18 12:42 Respiratory Rate 20 05/23/18 11:00 Blood Pressure 121/79 05/23/18 12:42 O2 Sat by Pulse Oximetry (%) 94 L 05/23/18 09:00 Constitutional: Yes: Obese Eyes: Yes: WNL, Conjunctiva Clear, EOM Intact HENT: Yes: WNL, Atraumatic, Normocephalic Neck: Yes: WNL, Supple, Trachea Midline Cardiovascular: Yes: Pulse Irregular, S1, S2 Respiratory: Yes: WNL, Regular, CTA Bilaterally Gastrointestinal: Yes: WNL, Normal Bowel Sounds, Soft ...Rectal Exam: Yes: Deferred Genitourinary: Yes: WNL Breast(s): Yes: WNL Musculoskeletal: Yes: WNL Extremities: Yes: WNL Edema: LLE: Trace, RLE: Trace Peripheral Pulses: Left Radial: 2+, Right Radial: 2+, Left Doralis Pedis: 2+, Right Dorsalis Pedis: 2+, Left Femoral: 2+, Right Femoral: 2+ Integumentary: Yes: WNL Wound/Incision: Yes: Clean/Dry Neurological: Yes: WNL ...Motor Strength: WNL Psychiatric: Yes: WNL Labs: CBC, BMP 05/23/18 05:30 05/23/18 05:30 INR, PTT INR 1.17 (0.82-1.09) H 05/22/18 13:05 Assessment/Plan The patient has been stable from the cardiac standpoint. Ventricular rates are better controlled in atrial fibrillation. Agree with oral Cardizem. May increase the dose as needed for hypertension and rate control. The patient is going for CT of the chest to rule out the pulmonary embolus. Please arrange for an echocardiogram. Continue cardiac monitoring. Clinically and symptomatically better.
--- NOTE | 2018-05-23 16:06 | CON.PULM ---
Consult Consult Specialty:: PULMONARY Referred by:: NIESHA Reason for Consultation:: SOB/COUGH - History of Present Illness Chief Complaint: SOB/CHEST CONGESTION History of Present Illness: The patient is a 63M with a history of a-fib (Pradaxa), CHF (40-45%), and T2DM who presents with 4 days of worsening shortness of breath associated with a productive cough, chills, HAJI, mild substernal/non-radiating chest pressure, and BLE swelling. He denies fevers, dizziness, blurry vision, or abdominal pain. He states this feels like CHF exacerbations he has had in the past. Further, he states that he has not been taking his Pradaxa since he was recently discharged about a week ago 2/2 not being able to get it filled. He denies sick contacts. - History Source History Provided By: Patient, Medical Record Limitations to Obtaining History: No Limitations - Past Medical History WAXER: No: Alzheimer's Cardio/Vascular: Yes: AFIB, CAD, HTN, Other (atrial fibrillation) Pulmonary: Yes: COPD. No: O2 Dependent Gastrointestinal: No: Ascites Hepatobiliary: No: Cirrhosis Renal/: No: Renal Failure Heme/Onc: No: Anemia Infectious Disease: Yes: Other (pneumonia and the flu). No: Tuberculosis - Alcohol/Substance Use Hx Alcohol Use: No - Smoking History Smoking history: Former smoker Have you smoked in the past 12 months: No Aproximately how many cigarettes per day: 4 - Social History History of Recent Travel: No Home Medications - Allergies Allergies/Adverse Reactions: Allergies Allergy/AdvReac Type Severity Reaction Status Date / Time Iodinated Contrast- Oral and AdvReac Intermediate Nausea Verified 05/23/18 00:14 IV Dye - Home Medications Home Medications: Ambulatory Orders Acetaminophen [Tylenol] 650 mg PO QID PRN 02/07/18 Albuterol 2.5/Ipratropium 0.5 [Duoneb -] 1 neb IH QID PRN 02/07/18 Albuterol 2.5/Ipratropium 0.5 [Duoneb -] 1 neb IH TID 02/07/18 Albuterol Sulfate Inhaler - [Ventolin Hfa Inhaler -] 1 - 2 inh PO Q4H 02/07/18 Aspirin 81 mg PO DAILY 02/07/18 Atorvastatin Calcium 40 mg PO HS 02/07/18 Fluticasone/Salmeterol [Advair Hfa 115-21 Mcg Inhaler] 2 inh PO BID 02/07/18 Guaifenesin [Diabetic Tussin Ex] 15 ml PO TID 02/07/18 Isosorbide Mononitrate 60 mg PO DAILY 02/07/18 Mag Hydrox/Al Hydrox/Simeth [Mylanta Oral Suspension -] 30 ml PO Q6H PRN Magnesium Oxide 800 mg PO DAILY 02/07/18 Methocarbamol [Robaxin -] 500 mg PO DAILY 02/07/18 Metoprolol Tartrate 100 mg PO BID 02/07/18 Mirtazapine [Remeron -] 15 mg PO HS 02/07/18 Montelukast Na [Singulair -] 10 mg PO DAILY 02/07/18 Polyethylene Glycol 3350 [Miralax 255 gm Btl -] 17 gm PO DAILY 02/07/18 Ranitidine [Zantac -] 150 mg PO BID 02/07/18 Sennosides [Senna -] 2 tab PO HS 02/07/18 Trazodone HCl 100 mg PO HS 02/07/18 Albuterol Sulfate 0.042% [Ventolin 0.042% (Half-Strength) -] 1 amp NEB RQID amp 02/14/18 Dabigatran Etexilate Mesylate [Pradaxa -] 150 mg PO BID cap 02/14/18 Insulin Sliding Scale [Novolog Vial Sliding Scale -] 1 vial SQ ACHS units 02/14 Ipratropium 0.02% Nebulizer [Atrovent 0.02% Nebulizer -] 1 amp NEB RQID amp 04/28 predniSONE [Deltasone -] 40 mg PO DAILY #30 tablet 02/14/18 Family Disease History - Family Disease History Family History: Unremarkable Review of Systems - Review of Systems Constitutional: reports: Chills, Fever, Night Sweats Eyes: denies: Blind Spots HENT: denies: Difficult Swallowing Neck: denies: Decreased ROM Cardiovascular: reports: Shortness of Breath. denies: Chest Pain Respiratory: reports: Cough, Exercise Intolerance, SOB, SOB on Exertion, Wheezing. denies: Hemoptysis Gastrointestinal: reports: No Symptoms Genitourinary: reports: No Symptoms Breasts: reports: No Symptoms Reported Musculoskeletal: reports: No Symptoms Integumentary: reports: No Symptoms Physical Exam Vital Sings: Vital Signs Temperature 97.4 F L 05/23/18 15:32 Pulse Rate 98 H 05/23/18 15:32 Respiratory Rate 20 05/23/18 15:32 Blood Pressure 122/77 05/23/18 15:32 O2 Sat by Pulse Oximetry (%) 94 L 05/23/18 09:00 Constitutional: Yes: Anxious Eyes: Yes: EOM Intact HENT: Yes: Normocephalic Neck: Yes: Trachea Midline Cardiovascular: Yes: Pulse Irregular, S1 Respiratory: Yes: Rales, Rhonchi, Wheezes Gastrointestinal: Yes: Normal Bowel Sounds Edema: LLE: 1+, RLE: 1+ Neurological: Yes: Alert Labs: CBC, BMP 05/23/18 05:30 05/23/18 05:30 REST REVIEWED Imaging - Results Chest X-ray: Report Reviewed, Image Reviewed Cat Scan: Report Reviewed, Image Reviewed Problem List - Problems (1) CHF exacerbation Code(s): I50.9 - HEART FAILURE, UNSPECIFIED Qualifiers: Heart failure type: unspecified Qualified Code(s): I50.9 - Heart failure, unspecified (2) Shortness of breath Code(s): R06.02 - SHORTNESS OF BREATH (3) Atrial fibrillation Code(s): I48.91 - UNSPECIFIED ATRIAL FIBRILLATION Qualifiers: Atrial fibrillation type: persistent Qualified Code(s): I48.1 - Persistent atrial fibrillation (4) CAD (coronary artery disease) Code(s): I25.10 - ATHSCL HEART DISEASE OF [place] CORONARY ARTERY W/O ANG PCTRS Qualifiers: Coronary Disease-Associated Artery/Lesion type: [place] artery [place] vs. transplanted heart: [place] heart Associated angina: without angina Qualified Code(s): I25.10 - Atherosclerotic heart disease of [place] coronary artery without angina pectoris (5) CHF (congestive heart failure) Code(s): I50.9 - HEART FAILURE, UNSPECIFIED Qualifiers: Heart failure type: unspecified Heart failure chronicity: acute on chronic Qualified Code(s): I50.9 - Heart failure, unspecified (6) COPD (chronic obstructive pulmonary disease) Code(s): J44.9 - CHRONIC OBSTRUCTIVE PULMONARY DISEASE, UNSPECIFIED (7) COPD with acute exacerbation Code(s): J44.1 - CHRONIC OBSTRUCTIVE PULMONARY DISEASE W (ACUTE) EXACERBATION Assessment/Plan AGREE WITH BRONCHODILATORS/STEROIDS/O2 CONSIDER COURSE OF ANTIBIOTICS CONTINUE LASIX/MONITOR WEIGHT/ELECTROLYTES ANTICOAGULATION/RATE CONTROL/GLYCEMIC CONTROL WILL FOLLOW Damaris HUDDLESTON MD
--- NOTE | 2018-05-23 16:41 | CONSULT ---
Consult Consult Specialty:: Nephrology Reason for Consultation:: fluid overload - History of Present Illness Chief Complaint: shortness of breath and diarrhea History of Present Illness: Pt is a 63 year old male with pmhx of CHF, asthma, a-fib. DM, HLD, and anxiety who presents to the ER with shortness of breath and diarrhea. He says that his breathing has been getting worse over the last week. He is on diuretics at home but they did not help. He gets SOB with ambulation or with laying flat. He also complained of chest pain. He says he is not usually compliant with his meds. He was found to be hypokalemic and in volume overload. - History Source History Provided By: Patient - Past Medical History Cardio/Vascular: Yes: AFIB, CAD, HTN, Other (atrial fibrillation) Pulmonary: Yes: COPD Infectious Disease: Yes: Other (pneumonia and the flu). No: Tuberculosis - Alcohol/Substance Use Hx Alcohol Use: No - Smoking History Smoking history: Former smoker Have you smoked in the past 12 months: No Aproximately how many cigarettes per day: 4 - Social History History of Recent Travel: No Home Medications - Allergies Allergies/Adverse Reactions: Allergies Allergy/AdvReac Type Severity Reaction Status Date / Time Iodinated Contrast- Oral and AdvReac Intermediate Nausea Verified 05/23/18 00:14 IV Dye - Home Medications Home Medications: Ambulatory Orders Acetaminophen [Tylenol] 650 mg PO QID PRN 02/07/18 Albuterol 2.5/Ipratropium 0.5 [Duoneb -] 1 neb IH QID PRN 02/07/18 Albuterol 2.5/Ipratropium 0.5 [Duoneb -] 1 neb IH TID 02/07/18 Albuterol Sulfate Inhaler - [Ventolin Hfa Inhaler -] 1 - 2 inh PO Q4H 02/07/18 Aspirin 81 mg PO DAILY 02/07/18 Atorvastatin Calcium 40 mg PO HS 02/07/18 Fluticasone/Salmeterol [Advair Hfa 115-21 Mcg Inhaler] 2 inh PO BID 02/07/18 Guaifenesin [Diabetic Tussin Ex] 15 ml PO TID 02/07/18 Isosorbide Mononitrate 60 mg PO DAILY 02/07/18 Mag Hydrox/Al Hydrox/Simeth [Mylanta Oral Suspension -] 30 ml PO Q6H PRN Magnesium Oxide 800 mg PO DAILY 02/07/18 Methocarbamol [Robaxin -] 500 mg PO DAILY 02/07/18 Metoprolol Tartrate 100 mg PO BID 02/07/18 Mirtazapine [Remeron -] 15 mg PO HS 02/07/18 Montelukast Na [Singulair -] 10 mg PO DAILY 02/07/18 Polyethylene Glycol 3350 [Miralax 255 gm Btl -] 17 gm PO DAILY 02/07/18 Ranitidine [Zantac -] 150 mg PO BID 02/07/18 Sennosides [Senna -] 2 tab PO HS 02/07/18 Trazodone HCl 100 mg PO HS 02/07/18 Albuterol Sulfate 0.042% [Ventolin 0.042% (Half-Strength) -] 1 amp NEB RQID amp 02/14/18 Dabigatran Etexilate Mesylate [Pradaxa -] 150 mg PO BID cap 02/14/18 Insulin Sliding Scale [Novolog Vial Sliding Scale -] 1 vial SQ ACHS units 02/14 Ipratropium 0.02% Nebulizer [Atrovent 0.02% Nebulizer -] 1 amp NEB RQID amp 04/28 predniSONE [Deltasone -] 40 mg PO DAILY #30 tablet 02/14/18 Family Disease History - Family Disease History Family History: Denies Review of Systems - Review of Systems Constitutional: reports: Malaise Eyes: reports: No Symptoms HENT: reports: No Symptoms Neck: reports: No Symptoms Cardiovascular: reports: Chest Pain, Edema, Shortness of Breath Respiratory: reports: SOB, SOB on Exertion Gastrointestinal: reports: Diarrhea Genitourinary: reports: No Symptoms Musculoskeletal: reports: No Symptoms Integumentary: reports: Erythema Endocrine: reports: No Symptoms Hematology/Lymphatic: reports: No Symptoms Psychiatric: reports: No Symptoms Physical Exam Vital Signs: Vital Signs Temperature 97.4 F L 05/23/18 15:32 Pulse Rate 98 H 05/23/18 15:32 Respiratory Rate 20 05/23/18 15:32 Blood Pressure 122/77 05/23/18 15:32 O2 Sat by Pulse Oximetry (%) 94 L 05/23/18 09:00 Constitutional: Yes: Anxious Eyes: Yes: Conjunctiva Clear HENT: Yes: Atraumatic Neck: Yes: Supple Cardiovascular: Yes: S1, S2 Respiratory: Yes: On Nasal O2, Rhonchi Gastrointestinal: Yes: Soft Renal/: Yes: WNL Musculoskeletal: Yes: WNL Edema: Yes Edema: LLE: 3+, RLE: 3+ Neurological: Yes: Oriented Psychiatric: Yes: Oriented Labs: CBC, BMP 05/23/18 05:30 05/23/18 05:30 Laboratory Tests 05/22/18 05/23/18 13:05 05:30 Sodium 138 Potassium 3.4 L 3.3 L Creatinine 0.8 0.7 Magnesium 1.3 L D Imaging - Results Chest X-ray: Report Reviewed Problem List - Problems (1) Hypokalemia Code(s): E87.6 - HYPOKALEMIA (2) Diabetes Code(s): E11.9 - TYPE 2 DIABETES MELLITUS WITHOUT COMPLICATIONS Qualifiers: Diabetes mellitus type: type 2 Diabetes mellitus developmental specialist insulin use: without developmental specialist use Diabetes mellitus complication status: without complication Qualified Code(s): E11.9 - Type 2 diabetes mellitus without complications (3) Hypertension Code(s): I10 - ESSENTIAL (PRIMARY) HYPERTENSION Qualifiers: Hypertension type: essential hypertension Qualified Code(s): I10 - Essential (primary) hypertension Assessment/Plan Current Medications Generic Name Dose Route Start Last Admin Trade Name Freq PRN Reason Stop Dose Admin Aspirin 81 mg 05/23/18 10:00 05/23/18 09:50 Ecotrin - PO 81 mg DAILY [facility] Administration Atorvastatin Calcium 40 mg 05/22/18 22:00 05/22/18 21:35 Lipitor - PO 40 mg HS [facility] Administration Budesonide/Formoterol Fumarate 2 puff 05/22/18 22:00 05/23/18 09:51 Symbicort 160/4.5mcg - IH 2 puff BID [facility] Administration Dabigatran 150 mg 05/22/18 22:00 05/23/18 09:50 Pradaxa - PO 150 mg BID [facility] Administration Diltiazem HCl 30 mg 05/23/18 12:00 05/23/18 17:02 Cardizem - PO 30 mg Q6HPO [facility] Administration Furosemide 40 mg 05/23/18 06:00 05/23/18 14:07 Lasix Injection - IVPUSH 40 mg BID@0600,1400 [facility] Administration Guaifenesin 10 ml 05/22/18 23:36 05/23/18 12:25 Robitussin - PO 10 ml Q6H PRN Administration COUGH Insulin Aspart 1 vial 05/22/18 16:30 05/23/18 16:55 Novolog Vial Sliding Scale - SQ 3 units ACHS [facility] Administration Protocol Ipratropium [place] 1 amp 05/22/18 16:00 05/23/18 12:00 Atrovent 0.02% Nebulizer - NEB 1 amp RQID [facility] Administration Methylprednisolone Sodium Succinate 40 mg 05/22/18 18:00 05/23/18 17:04 Solu-Medrol - IVPB 40 mg Q8H-IV [facility] Administration Montelukast Sodium 10 mg 05/22/18 22:00 05/22/18 21:35 Singulair - PO 10 mg HS [facility] Administration Potassium Chloride 20 meq 05/22/18 15:45 05/23/18 09:50 K-Dur - PO 20 meq DAILY [facility] Administration Ranitidine HCl 150 mg 05/23/18 10:00 05/23/18 09:50 Zantac - PO 150 mg DAILY [facility] Administration Trazodone HCl 100 mg 05/22/18 22:00 05/22/18 21:36 Desyrel - PO 100 mg HS [facility] Administration Impression 1. CHF 2. hypokalemia 3. hypomagnesemia 4. asthma 5. a-fib 6. DM Plan - replace potassium - replace mag - monitor lytes - renal function is stable - check UA - will give anotehr dose of potassium
[2018-05-23] MEDS ORDERED: INSULIN (NOVOLOG) ASPART 100 UNITS/ML 10ML VIAL ONE (16:52)
[2018-05-23] MEDS ORDERED: POTASSIUM CHLORIDE TABS 20 MEQ TABLET.ER (FP) PO ONE (18:14)
[2018-05-23] MEDS ORDERED: traZODone HCL 50 MG TABLET (FP) ONE (20:51)
[2018-05-23] MEDS: ATORVASTATIN CA 40 MG TABLET (FP) PO SCH (21:13)
[2018-05-23] MEDS: MONTELUKAST NA 10 MG TABLET PO SCH (21:14)
[2018-05-23] MEDS: traZODone HCL 100 MG TABLET (FP) PO SCH (21:15)
[2018-05-23] MEDS ORDERED: MELATONIN 1 MG TABLET PO ONE (23:43)
[2018-05-24] MEDS: methylPREDNISolone NA SUCC 40 MG/1 ML VIAL IVPB SCH ×3 (01:02→17:40)
[2018-05-24] MEDS: FUROSEMIDE 40 MG/4 ML INJECTABLE VIAL IVPUSH SCH ×2 (05:52→13:32)
[2018-05-24] MEDS: dilTIAZem HCL 30 MG TABLET (FP) PO SCH ×3 (05:52→17:40)
[2018-05-24] MEDS: INSULIN SLIDING SCALE (NOVOLOG) 1 VIAL SQ SCH ×4 (06:31→21:31)
[2018-05-24 07:54] LABS: BASO % 0.2 % (0-2.0); HEMOGLOBIN 12.9 GM/dL (11.7-16.9); LYMPH % 12.1 % (8-40); MCH 28.9 pg (25.7-33.7); MEAN CELL VOLUME 87.6 fl (80-96); MEAN PLT VOLUME 9.1 fl (7.5-11.1); MONO % 6.5 % (3.8-10.2); NEUT % 81.2 % (42.8-82.8); PLATELET COUNT 194 K/MM3 (134-434); RBC 4.45 M/mm3 (4.00-5.60); RDW 18.1 % (11.9-15.9); WHITE BLOOD COUNT 5.3 K/mm3 (4.0-10.0)
[2018-05-24] MEDS: IPRATROPIUM BR 0.02% 0.5 MG/2.5 ML VIAL.NEB. NEB SCH ×4 (08:00→20:25)
[2018-05-24 09:29] LABS: GLUCOSE,RANDOM 149 mg/dL (74-106)
[2018-05-24] MEDS ORDERED: PT OWN MED DRAWER 7, Y5N ONE ×2 (09:41→21:53)
[2018-05-24 10:10] LABS: ANION GAP 10 (8-16); CHLORIDE 96 mmol/L (98-107); CO2 31 mmol/L (21-32); MAGNESIUM 1.7 mg/dL (1.8-2.4); POTASSIUM 3.7 mmol/L (3.5-5.1); SGPT/ALT 23 U/L (12-78); SODIUM 137 mmol/L (136-145)
[2018-05-24] MEDS: POTASSIUM CHLORIDE TABS 20 MEQ TABLET.ER (FP) PO SCH (10:10)
[2018-05-24] MEDS: RANITIDINE HCL 150 MG TABLET (FP) PO SCH (10:10)
[2018-05-24] MEDS: ASPIRIN COATED 81 MG TABLET.EC PO SCH (10:10)
[2018-05-24] MEDS: DABIGATRAN ETEXILATE MESYLATE 150 MG CAPSULE PO SCH ×2 (10:10→20:59)
[2018-05-24] MEDS: BUDESONIDE/FORMETEROL FUMARATE 160/4.5 mcg INHALER IH SCH ×2 (10:11→21:00)
[2018-05-24 10:13] LABS: ALK PHOS 156 U/L (45-117)
[2018-05-24 10:38] LABS: ALBUMIN 2.5 g/dl (3.4-5.0); BILIRUBIN,TOTAL 0.7 mg/dL (0.2-1.0); BLOOD UREA NITROGEN 26 mg/dL (7-18); CALCIUM 8.7 mg/dL (8.5-10.1); CREATININE 0.8 mg/dL (0.7-1.3); TOT PROT 7.3 g/dl (6.4-8.2)
[2018-05-24 10:59] LABS: SGOT/AST 36 U/L (15-37)
--- NOTE | 2018-05-24 11:57 | PN ---
Progress Note, Physician Chief Complaint: THIS IS MY FIRST ENCOUNTER WITH THIS PATIENT EVENTS AND NOTES REVIEWED AWAKE ALERT ON 02NC DENIES CHEST PAIN HE DOES C/O DYSPNEA + BM + APPETITE - Current Medication List Current Medications: Active Medications Aspirin (Ecotrin -) 81 mg PO DAILY [facility] Last Admin: 05/24/18 10:10 Dose: 81 mg Atorvastatin Calcium (Lipitor -) 40 mg PO HS [facility] Last Admin: 05/23/18 21:13 Dose: 40 mg Budesonide/Formoterol Fumarate (Symbicort 160/4.5mcg -) 2 puff IH BID [facility] Last Admin: 05/24/18 10:11 Dose: 2 puff Dabigatran (Pradaxa -) 150 mg PO BID [facility] Last Admin: 05/24/18 10:10 Dose: 150 mg Diltiazem HCl (Cardizem -) 30 mg PO Q6HPO [facility] Last Admin: 05/24/18 11:54 Dose: 30 mg Furosemide (Lasix Injection -) 40 mg IVPUSH BID@0600,1400 [facility] Last Admin: 05/24/18 05:52 Dose: 40 mg Guaifenesin (Robitussin -) 10 ml PO Q6H PRN PRN Reason: COUGH Last Admin: 05/23/18 21:15 Dose: 10 ml Insulin Aspart (Novolog Vial Sliding Scale -) 1 vial SQ [facility]; Protocol Last Admin: 05/24/18 11:52 Dose: Not Given Ipratropium [place] (Atrovent 0.02% Nebulizer -) 1 amp NEB RQID [facility] Last Admin: 05/24/18 11:41 Dose: 1 amp Methylprednisolone Sodium Succinate (Solu-Medrol -) 40 mg IVPB Q8H-IV [facility] Last Admin: 05/24/18 10:11 Dose: 40 mg Montelukast Sodium (Singulair -) 10 mg PO HS [facility] Last Admin: 05/23/18 21:14 Dose: 10 mg Potassium Chloride (K-Dur -) 20 meq PO DAILY [facility] Last Admin: 05/24/18 10:10 Dose: 20 meq Ranitidine HCl (Zantac -) 150 mg PO DAILY [facility] Last Admin: 05/24/18 10:10 Dose: 150 mg Trazodone HCl (Desyrel -) 100 mg PO HS [facility] Last Admin: 05/23/18 21:15 Dose: 100 mg - Objective Vital Signs: Vital Signs Temperature 97.4 F L 05/24/18 09:05 Pulse Rate 104 H 05/24/18 09:05 Respiratory Rate 24 05/24/18 09:05 Blood Pressure 145/65 05/24/18 09:05 O2 Sat by Pulse Oximetry (%) 96 05/24/18 09:00 Constitutional: Yes: Mild Distress Eyes: Yes: WNL HENT: Yes: WNL Neck: Yes: WNL Cardiovascular: Yes: WNL Respiratory: Yes: On Nasal O2, Poor Air Entry, SOB Gastrointestinal: Yes: WNL Genitourinary: Yes: WNL Musculoskeletal: Yes: Muscle Weakness Extremities: Yes: WNL Edema: Yes Edema: LLE: Trace, RLE: Trace Peripheral Pulses WNL: Yes Integumentary: Yes: WNL Wound/Incision: Yes: Clean/Dry Neurological: Yes: WNL ...Motor Strength: WNL Psychiatric: Yes: WNL Labs: CBC, BMP 05/24/18 06:00 05/24/18 06:00 INR, PTT INR 1.17 (0.82-1.09) H 05/22/18 13:05 Problem List - Problems (1) CHF exacerbation Code(s): I50.9 - HEART FAILURE, UNSPECIFIED Qualifiers: Heart failure type: unspecified Qualified Code(s): I50.9 - Heart failure, unspecified (2) Electrolyte abnormality Code(s): E87.8 - OTH DISORDERS OF ELECTROLYTE AND FLUID BALANCE, NEC (3) Shortness of breath Code(s): R06.02 - SHORTNESS OF BREATH (4) Atrial fibrillation Code(s): I48.91 - UNSPECIFIED ATRIAL FIBRILLATION Qualifiers: Atrial fibrillation type: persistent Qualified Code(s): I48.1 - Persistent atrial fibrillation (5) CAD (coronary artery disease) Code(s): I25.10 - ATHSCL HEART DISEASE OF [place] CORONARY ARTERY W/O ANG PCTRS Qualifiers: Coronary Disease-Associated Artery/Lesion type: [place] artery [place] vs. transplanted heart: [place] heart Associated angina: without angina Qualified Code(s): I25.10 - Atherosclerotic heart disease of [place] coronary artery without angina pectoris (6) COPD with acute exacerbation Code(s): J44.1 - CHRONIC OBSTRUCTIVE PULMONARY DISEASE W (ACUTE) EXACERBATION (7) Congestive heart failure with LV diastolic dysfunction, NYHA class 2 Code(s): I50.30 - UNSPECIFIED DIASTOLIC (CONGESTIVE) HEART FAILURE (8) Diabetes Code(s): E11.9 - TYPE 2 DIABETES MELLITUS WITHOUT COMPLICATIONS Qualifiers: Diabetes mellitus type: type 2 Diabetes mellitus long-term insulin use: without director long term care use Diabetes mellitus complication status: without complication Qualified Code(s): E11.9 - Type 2 diabetes mellitus without complications Assessment/Plan TELE CARDIO WORKUP IN PROGRESS CHECK ECHO FOR EF% PULM EVAL APPRECIATED, IV STEROIDS AND NEBS 02 SUPPORT ADDED INCENTIVE SPIROMETRY OOB TO CHAIR ON PRADAXA/ASA DIETARY CONSULT A1C% ORDERED WITH [facility] LIFESTYLE CHANGES STRESSED WITH MEDICAL COMPLIANCE
[2018-05-24] MEDS ORDERED: MAGNESIUM SULF 50% (8.12 MEQ/2 ML-1 GM VIAL) IVPB ONE (12:03)
--- NOTE | 2018-05-24 12:03 | PN ---
Progress Note, Physician History of Present Illness: Pt seen and examined at bedside. He is awake and alert. He feels that his breathing is starting to improve. He however is still very short of breath. - Current Medication List Current Medications: Active Medications Aspirin (Ecotrin -) 81 mg PO DAILY [facility] Last Admin: 05/24/18 10:10 Dose: 81 mg Atorvastatin Calcium (Lipitor -) 40 mg PO HS [facility] Last Admin: 05/23/18 21:13 Dose: 40 mg Budesonide/Formoterol Fumarate (Symbicort 160/4.5mcg -) 2 puff IH BID [facility] Last Admin: 05/24/18 10:11 Dose: 2 puff Dabigatran (Pradaxa -) 150 mg PO BID [facility] Last Admin: 05/24/18 10:10 Dose: 150 mg Diltiazem HCl (Cardizem -) 30 mg PO Q6HPO [facility] Last Admin: 05/24/18 11:54 Dose: 30 mg Furosemide (Lasix Injection -) 40 mg IVPUSH BID@0600,1400 [facility] Last Admin: 05/24/18 05:52 Dose: 40 mg Guaifenesin (Robitussin -) 10 ml PO Q6H PRN PRN Reason: COUGH Last Admin: 05/23/18 21:15 Dose: 10 ml Insulin Aspart (Novolog Vial Sliding Scale -) 1 vial SQ [facility]; Protocol Last Admin: 05/24/18 11:52 Dose: Not Given Ipratropium [place] (Atrovent 0.02% Nebulizer -) 1 amp NEB RQID [facility] Last Admin: 05/24/18 11:41 Dose: 1 amp Methylprednisolone Sodium Succinate (Solu-Medrol -) 40 mg IVPB Q8H-IV [facility] Last Admin: 05/24/18 10:11 Dose: 40 mg Montelukast Sodium (Singulair -) 10 mg PO HS [facility] Last Admin: 05/23/18 21:14 Dose: 10 mg Potassium Chloride (K-Dur -) 20 meq PO DAILY [facility] Last Admin: 05/24/18 10:10 Dose: 20 meq Ranitidine HCl (Zantac -) 150 mg PO DAILY [facility] Last Admin: 05/24/18 10:10 Dose: 150 mg Trazodone HCl (Desyrel -) 100 mg PO HS [facility] Last Admin: 05/23/18 21:15 Dose: 100 mg - Objective Vital Signs: Vital Signs Temperature 97.4 F L 05/24/18 09:05 Pulse Rate 104 H 05/24/18 09:05 Respiratory Rate 24 05/24/18 09:05 Blood Pressure 145/65 05/24/18 09:05 O2 Sat by Pulse Oximetry (%) 96 05/24/18 09:00 Constitutional: Yes: Calm Eyes: Yes: Conjunctiva Clear HENT: Yes: Atraumatic Neck: Yes: Supple Cardiovascular: Yes: S1, S2 Respiratory: Yes: On Nasal O2, Wheezes Gastrointestinal: Yes: Soft Musculoskeletal: Yes: WNL Edema: Yes Edema: LLE: 2+, RLE: 2+ Neurological: Yes: Oriented Psychiatric: Yes: Oriented Labs: CBC, BMP 05/24/18 06:00 05/24/18 06:00 INR, PTT INR 1.17 (0.82-1.09) H 05/22/18 13:05 Problem List - Problems (1) Hypokalemia Code(s): E87.6 - HYPOKALEMIA (2) Diabetes Code(s): E11.9 - TYPE 2 DIABETES MELLITUS WITHOUT COMPLICATIONS Qualifiers: Diabetes mellitus type: type 2 Diabetes mellitus intermediate insulin use: without intermediate use Diabetes mellitus complication status: without complication Qualified Code(s): E11.9 - Type 2 diabetes mellitus without complications (3) Hypertension Code(s): I10 - ESSENTIAL (PRIMARY) HYPERTENSION Qualifiers: Hypertension type: essential hypertension Qualified Code(s): I10 - Essential (primary) hypertension Assessment/Plan Current Medications Generic Name Dose Route Start Last Admin Trade Name Bill PRN Reason Stop Dose Admin Aspirin 81 mg 05/23/18 10:00 05/24/18 10:10 Ecotrin - PO 81 mg DAILY [facility] Administration Atorvastatin Calcium 40 mg 05/22/18 22:00 05/23/18 21:13 Lipitor - PO 40 mg HS [facility] Administration Budesonide/Formoterol Fumarate 2 puff 05/22/18 22:00 05/24/18 10:11 Symbicort 160/4.5mcg - IH 2 puff BID [facility] Administration Dabigatran 150 mg 05/22/18 22:00 05/24/18 10:10 Pradaxa - PO 150 mg BID [facility] Administration Diltiazem HCl 30 mg 05/23/18 12:00 05/24/18 11:54 Cardizem - PO 30 mg Q6HPO [facility] Administration Furosemide 40 mg 05/23/18 06:00 05/24/18 05:52 Lasix Injection - IVPUSH 40 mg BID@0600,1400 [facility] Administration Guaifenesin 10 ml 05/22/18 23:36 05/23/18 21:15 Robitussin - PO 10 ml Q6H PRN Administration COUGH Insulin Aspart 1 vial 05/22/18 16:30 05/24/18 11:52 Novolog Vial Sliding Scale - SQ Not Given ACHS [facility] Protocol Ipratropium [place] 1 amp 05/22/18 16:00 05/24/18 11:41 Atrovent 0.02% Nebulizer - NEB 1 amp RQID [facility] Administration Methylprednisolone Sodium Succinate 40 mg 05/22/18 18:00 05/24/18 10:11 Solu-Medrol - IVPB 40 mg Q8H-IV [facility] Administration Montelukast Sodium 10 mg 05/22/18 22:00 05/23/18 21:14 Singulair - PO 10 mg HS [facility] Administration Potassium Chloride 20 meq 05/22/18 15:45 05/24/18 10:10 K-Dur - PO 20 meq DAILY [facility] Administration Ranitidine HCl 150 mg 05/23/18 10:00 05/24/18 10:10 Zantac - PO 150 mg DAILY [facility] Administration Trazodone HCl 100 mg 05/22/18 22:00 05/23/18 21:15 Desyrel - PO 100 mg HS [facility] Administration Impression 1. CHF 2. hypokalemia 3. hypomagnesemia 4. asthma 5. a-fib 6. DM Plan - replace magnesium, will give IV as he had diarrhea - potassium improved - can start to transition lasix to po in next 24 hours - monitor lytes - steroids with taper per pulm - will follow
[2018-05-24] MEDS ORDERED: MAGNESIUM SULFATE IN WATER 2 GM/50 ML IVPB IVPB ONE (12:15)
--- NOTE | 2018-05-24 13:15 | PN ---
Progress Note (short form) - Note Progress Note: PULMONARY AWAKE/ALERT EATING LUNCH APPEARS IMPROVED VSS/AFEBRILE ANICTERIC DIMINISHED B/L BREATH SOUNDS/SCATTERED RHONCHI S1S2 OBESE B/L LOWER EXT 2+ EDEMA LABS/MEDS/NOTES/IMAGES REVIEWED (1) CHF exacerbation Code(s): I50.9 - HEART FAILURE, UNSPECIFIED Qualifiers: Heart failure type: unspecified Qualified Code(s): I50.9 - Heart failure, unspecified (2) Shortness of breath Code(s): R06.02 - SHORTNESS OF BREATH (3) Atrial fibrillation Code(s): I48.91 - UNSPECIFIED ATRIAL FIBRILLATION Qualifiers: Atrial fibrillation type: persistent Qualified Code(s): I48.1 - Persistent atrial fibrillation (4) CAD (coronary artery disease) Code(s): I25.10 - ATHSCL HEART DISEASE OF [place] CORONARY ARTERY W/O ANG PCTRS Qualifiers: Coronary Disease-Associated Artery/Lesion type: [place] artery [place] vs. transplanted heart: [place] heart Associated angina: without angina Qualified Code(s): I25.10 - Atherosclerotic heart disease of [place] coronary artery without angina pectoris (5) CHF (congestive heart failure) Code(s): I50.9 - HEART FAILURE, UNSPECIFIED Qualifiers: Heart failure type: unspecified Heart failure chronicity: acute on chronic Qualified Code(s): I50.9 - Heart failure, unspecified (6) COPD (chronic obstructive pulmonary disease) Code(s): J44.9 - CHRONIC OBSTRUCTIVE PULMONARY DISEASE, UNSPECIFIED (7) COPD with acute exacerbation Code(s): J44.1 - CHRONIC OBSTRUCTIVE PULMONARY DISEASE W (ACUTE) EXACERBATION Assessment/Plan AGREE WITH BRONCHODILATORS/STEROIDS/O2 CONSIDER COURSE OF ANTIBIOTICS CONTINUE LASIX/MONITOR WEIGHT/ELECTROLYTES ANTICOAGULATION/RATE CONTROL/GLYCEMIC CONTROL/CORRECT VINCENT HUDDLESTON MD Problem List - Problems (1) CHF exacerbation Code(s): I50.9 - HEART FAILURE, UNSPECIFIED Qualifiers: Heart failure type: unspecified Qualified Code(s): I50.9 - Heart failure, unspecified (2) Shortness of breath Code(s): R06.02 - SHORTNESS OF BREATH (3) Atrial fibrillation Code(s): I48.91 - UNSPECIFIED ATRIAL FIBRILLATION Qualifiers: Atrial fibrillation type: persistent Qualified Code(s): I48.1 - Persistent atrial fibrillation (4) CAD (coronary artery disease) Code(s): I25.10 - ATHSCL HEART DISEASE OF [place] CORONARY ARTERY W/O ANG PCTRS Qualifiers: Coronary Disease-Associated Artery/Lesion type: [place] artery [place] vs. transplanted heart: [place] heart Associated angina: without angina Qualified Code(s): I25.10 - Atherosclerotic heart disease of [place] coronary artery without angina pectoris (5) CHF (congestive heart failure) Code(s): I50.9 - HEART FAILURE, UNSPECIFIED Qualifiers: Heart failure type: unspecified Heart failure chronicity: acute on chronic Qualified Code(s): I50.9 - Heart failure, unspecified (6) COPD (chronic obstructive pulmonary disease) Code(s): J44.9 - CHRONIC OBSTRUCTIVE PULMONARY DISEASE, UNSPECIFIED (7) COPD with acute exacerbation Code(s): J44.1 - CHRONIC OBSTRUCTIVE PULMONARY DISEASE W (ACUTE) EXACERBATION
--- NOTE | 2018-05-24 14:21 | CON.ID ---
Consult Consult Specialty:: infectious diseases Referred by:: Reason for Consultation:: cough,sob - History of Present Illness Chief Complaint: cough sob,sputum production History of Present Illness: The patient is a 63-year-old male with significant past medical history of CHF, asthma, a fib, DM, hypercholeserolemia, anxiety, and depression, admitted with sob cough and sputum production according to the patient he was diagnosed with chf . He endorses symptoms of headache, lightheadedness, and chills. He is currently incontinent and nauseous. he also mentions that he had dirrhoea and has been worked up for that currently he continues to have cough with sputum production though just whitish and sob - History Source History Provided By: Patient Limitations to Obtaining History: No Limitations - Past Medical History CH[employer]NER: No: Alzheimer's Cardio/Vascular: Yes: AFIB, CAD, HTN, Other (atrial fibrillation) Pulmonary: Yes: COPD Gastrointestinal: No: Ascites Hepatobiliary: No: Cirrhosis Renal/: No: Renal Failure Infectious Disease: Yes: Other (pneumonia and the flu). No: Tuberculosis - Alcohol/Substance Use Hx Alcohol Use: No - Smoking History Smoking history: Former smoker Have you smoked in the past 12 months: No Aproximately how many cigarettes per day: 4 - Social History History of Recent Travel: No Home Medications - Allergies Allergies/Adverse Reactions: Allergies Allergy/AdvReac Type Severity Reaction Status Date / Time Iodinated Contrast- Oral and AdvReac Intermediate Nausea Verified 05/23/18 00:14 IV Dye - Home Medications Home Medications: Ambulatory Orders Acetaminophen [Tylenol] 650 mg PO QID PRN 02/07/18 Albuterol 2.5/Ipratropium 0.5 [Duoneb -] 1 neb IH QID PRN 02/07/18 Albuterol 2.5/Ipratropium 0.5 [Duoneb -] 1 neb IH TID 02/07/18 Albuterol Sulfate Inhaler - [Ventolin Hfa Inhaler -] 1 - 2 inh PO Q4H 02/07/18 Aspirin 81 mg PO DAILY 02/07/18 Atorvastatin Calcium 40 mg PO HS 02/07/18 Fluticasone/Salmeterol [Advair Hfa 115-21 Mcg Inhaler] 2 inh PO BID 02/07/18 Guaifenesin [Diabetic Tussin Ex] 15 ml PO TID 02/07/18 Isosorbide Mononitrate 60 mg PO DAILY 02/07/18 Mag Hydrox/Al Hydrox/Simeth [Mylanta Oral Suspension -] 30 ml PO Q6H PRN Magnesium Oxide 800 mg PO DAILY 02/07/18 Methocarbamol [Robaxin -] 500 mg PO DAILY 02/07/18 Metoprolol Tartrate 100 mg PO BID 02/07/18 Mirtazapine [Remeron -] 15 mg PO HS 02/07/18 Montelukast Na [Singulair -] 10 mg PO DAILY 02/07/18 Polyethylene Glycol 3350 [Miralax 255 gm Btl -] 17 gm PO DAILY 02/07/18 Ranitidine [Zantac -] 150 mg PO BID 02/07/18 Sennosides [Senna -] 2 tab PO HS 02/07/18 Trazodone HCl 100 mg PO HS 02/07/18 Albuterol Sulfate 0.042% [Ventolin 0.042% (Half-Strength) -] 1 amp [facility] RQID amp 02/14/18 Dabigatran Etexilate Mesylate [Pradaxa -] 150 mg PO BID cap 02/14/18 Insulin Sliding Scale [Novolog Vial Sliding Scale -] 1 vial SQ [facility] units 02/14 Ipratropium 0.02% Nebulizer [Atrovent 0.02% Nebulizer -] 1 amp [facility] RQID amp 04/28 predniSONE [Deltasone -] 40 mg PO DAILY #30 tablet 02/14/18 Review of Systems - Review of Systems Constitutional: reports: No Symptoms Eyes: reports: No Symptoms HENT: reports: No Symptoms Neck: reports: No Symptoms Cardiovascular: reports: Shortness of Breath Respiratory: reports: Cough, SOB, SOB on Exertion, Wheezing, Other Musculoskeletal: reports: No Symptoms Integumentary: reports: No Symptoms Neurological: reports: No Symptoms Hematology/Lymphatic: reports: No Symptoms Psychiatric: reports: No Symptoms Physical Exam Vital Signs: Vital Signs Temperature 97.5 F L 05/24/18 14:00 Pulse Rate 122 H 05/24/18 14:00 Respiratory Rate 21 05/24/18 14:00 Blood Pressure 127/89 05/24/18 14:00 O2 Sat by Pulse Oximetry (%) 96 05/24/18 09:00 Constitutional: Yes: Well Nourished, Moderate Distress Eyes: Yes: Conjunctiva Clear HENT: Yes: Atraumatic Cardiovascular: Yes: Pulse Irregular, S1, S2 Respiratory: Yes: Diminished, On Nasal O2, Poor Air Entry, Rhonchi, Other ( wheezing) Gastrointestinal: Yes: Normal Bowel Sounds, Soft Musculoskeletal: Yes: WNL Extremities: Yes: Other Neurological: Yes: Alert, Oriented Psychiatric: Yes: Alert, Oriented Labs: CBC, BMP 05/24/18 06:00 05/24/18 06:00 Imaging - Results Chest X-ray: Report Reviewed, Image Reviewed Cat Scan: Report Reviewed, Image Reviewed Assessment/Plan Problem List - Problems (1) CHF exacerbation Code(s): I50.9 - HEART FAILURE, UNSPECIFIED Qualifiers: Heart failure type: unspecified Qualified Code(s): I50.9 - Heart failure, unspecified (2) Shortness of breath Code(s): R06.02 - SHORTNESS OF BREATH (3) Atrial fibrillation Code(s): I48.91 - UNSPECIFIED ATRIAL FIBRILLATION Qualifiers: Atrial fibrillation type: persistent Qualified Code(s): I48.1 - Persistent atrial fibrillation (4) CAD (coronary artery disease) Code(s): I25.10 - ATHSCL HEART DISEASE OF [place] CORONARY ARTERY W/O ANG PCTRS Qualifiers: Coronary Disease-Associated Artery/Lesion type: [place] artery [place] vs. transplanted heart: [place] heart Associated angina: without angina Qualified Code(s): I25.10 - Atherosclerotic heart disease of [place] coronary artery without angina pectoris (5) CHF (congestive heart failure) Code(s): I50.9 - HEART FAILURE, UNSPECIFIED Qualifiers: Heart failure type: unspecified Heart failure chronicity: acute on chronic Qualified Code(s): I50.9 - Heart failure, unspecified (6) COPD (chronic obstructive pulmonary disease) Code(s): J44.9 - CHRONIC OBSTRUCTIVE PULMONARY DISEASE, UNSPECIFIED (7) COPD with acute exacerbation Code(s): J44.1 - CHRONIC OBSTRUCTIVE PULMONARY DISEASE W (ACUTE) EXACERBATION plan will continue to watch the patient no abx at this time dennis ee how patient does rest as per the team and pul
--- NOTE | 2018-05-24 14:23 | PN ---
Progress Note, Physician Chief Complaint: Cardiology FU SOB when speaking. Frequent cough Te[place] rapid Afib HR 130-100 - Current Medication List Current Medications: Active Medications Aspirin (Ecotrin -) 81 mg PO DAILY [facility] Last Admin: 05/24/18 10:10 Dose: 81 mg Atorvastatin Calcium (Lipitor -) 40 mg PO HS [facility] Last Admin: 05/23/18 21:13 Dose: 40 mg Budesonide/Formoterol Fumarate (Symbicort 160/4.5mcg -) 2 puff IH BID [facility] Last Admin: 05/24/18 10:11 Dose: 2 puff Dabigatran (Pradaxa -) 150 mg PO BID [facility] Last Admin: 05/24/18 10:10 Dose: 150 mg Diltiazem HCl (Cardizem -) 30 mg PO Q6HPO [facility] Last Admin: 05/24/18 11:54 Dose: 30 mg Furosemide (Lasix Injection -) 40 mg IVPUSH BID@0600,1400 [facility] Last Admin: 05/24/18 13:32 Dose: 40 mg Guaifenesin (Robitussin -) 10 ml PO Q6H PRN PRN Reason: COUGH Last Admin: 05/23/18 21:15 Dose: 10 ml Insulin Aspart (Novolog Vial Sliding Scale -) 1 vial SQ ACHS [facility]; Protocol Last Admin: 05/24/18 11:52 Dose: Not Given Ipratropium [place] (Atrovent 0.02% Nebulizer -) 1 amp NEB RQID [facility] Last Admin: 05/24/18 11:41 Dose: 1 amp Methylprednisolone Sodium Succinate (Solu-Medrol -) 40 mg IVPB Q8H-IV [facility] Last Admin: 05/24/18 10:11 Dose: 40 mg Montelukast Sodium (Singulair -) 10 mg PO HS [facility] Last Admin: 05/23/18 21:14 Dose: 10 mg Potassium Chloride (K-Dur -) 20 meq PO DAILY [facility] Last Admin: 05/24/18 10:10 Dose: 20 meq Ranitidine HCl (Zantac -) 150 mg PO DAILY [facility] Last Admin: 05/24/18 10:10 Dose: 150 mg Trazodone HCl (Desyrel -) 100 mg PO HS [facility] Last Admin: 05/23/18 21:15 Dose: 100 mg - Objective Vital Signs: Vital Signs Temperature 97.5 F L 05/24/18 14:00 Pulse Rate 122 H 05/24/18 14:00 Respiratory Rate 21 05/24/18 14:00 Blood Pressure 127/89 05/24/18 14:00 O2 Sat by Pulse Oximetry (%) 96 05/24/18 09:00 Constitutional: Yes: Moderate Distress HENT: Yes: Atraumatic, Normocephalic Neck: Yes: Trachea Midline Cardiovascular: Yes: Tachycardia, Pulse Irregular, JVD (to the mandable), S1, S2 Respiratory: Yes: Poor Air Entry Gastrointestinal: Yes: Normal Bowel Sounds, Soft Edema: Yes Edema: LLE: 1+, RLE: 1+ Labs: CBC, BMP 05/24/18 06:00 05/24/18 06:00 INR, PTT INR 1.17 (0.82-1.09) H 05/22/18 13:05 Laboratory Tests 05/23/18 05:30 B-Natriuretic Peptide 3645.72 H - ....Imaging Chest X-ray: Report Reviewed Cat Scan: Report Reviewed Assessment/Plan 63 M with chronic Afib and a known history of Non-ischemic cardiomyopathy with cardiac cath in 2006 and 2015 both showing moderate LV dysfunction and patent cors. Admitted with cough and dyspnea with acute on chronic systolic heart failure and rapid atrial fibrillation. Echocardiogram yesterday showing severely reduced EF, moderate MR. significantly Volume overloaded still. Continue IV diuretics. Monitor weight and I/O DC ASA Afib with rapid HR at times. Place on Metoprolol XL 25mg qd
[2018-05-24] MEDS: metoPROLOL SUCCINATE 25 MG TAB.SR.24H (FP) PO SCH (15:32)
[2018-05-24] MEDS: guaiFENesin 200 MG/10 ML 10 ML UNIT-DOSE CUPS PO PRN (17:09)
[2018-05-24] MEDS ORDERED: traZODone HCL 50 MG TABLET (FP) ONE (19:06)
[2018-05-24] MEDS: MONTELUKAST NA 10 MG TABLET PO SCH (20:59)
[2018-05-24] MEDS: traZODone HCL 100 MG TABLET (FP) PO SCH (20:59)
[2018-05-24] MEDS: ATORVASTATIN CA 40 MG TABLET (FP) PO SCH (20:59)
[2018-05-25] MEDS: dilTIAZem HCL 30 MG TABLET (FP) PO SCH ×4 (00:38→17:37)
[2018-05-25] MEDS: methylPREDNISolone NA SUCC 40 MG/1 ML VIAL IVPB SCH ×3 (02:50→17:45)
[2018-05-25] MEDS: FUROSEMIDE 40 MG/4 ML INJECTABLE VIAL IVPUSH SCH ×2 (06:39→13:39)
[2018-05-25] MEDS: INSULIN SLIDING SCALE (NOVOLOG) 1 VIAL SQ SCH ×4 (06:40→21:45)
[2018-05-25 07:22] LABS: ANION GAP 9 (8-16); BLOOD UREA NITROGEN 34 mg/dL (7-18); CALCIUM 8.7 mg/dL (8.5-10.1); CHLORIDE 95 mmol/L (98-107); CO2 31 mmol/L (21-32); GLUCOSE,RANDOM 158 mg/dL (74-106); MAGNESIUM 1.9 mg/dL (1.8-2.4); POTASSIUM 4.4 mmol/L (3.5-5.1); SODIUM 135 mmol/L (136-145)
[2018-05-25 07:24] LABS: CREATININE 0.8 mg/dL (0.7-1.3)
--- NOTE | 2018-05-25 08:59 | PN ---
Progress Note (short form) - Note Progress Note: PULMONARY AWAKE/ALERT APPEARS IMPROVED VSS/AFEBRILE ANICTERIC DIMINISHED B/L BREATH SOUNDS/SCATTERED RHONCHI S1S2 OBESE B/L LOWER EXT 2+ [facility] LABS/MEDS/NOTES/IMAGES REVIEWED STOOL CULTURE NOTED (1) CHF exacerbation Code(s): I50.9 - HEART FAILURE, UNSPECIFIED Qualifiers: Heart failure type: unspecified Qualified Code(s): I50.9 - Heart failure, unspecified (2) Shortness of breath Code(s): R06.02 - SHORTNESS OF BREATH (3) Atrial fibrillation Code(s): I48.91 - UNSPECIFIED ATRIAL FIBRILLATION Qualifiers: Atrial fibrillation type: persistent Qualified Code(s): I48.1 - Persistent atrial fibrillation (4) CAD (coronary artery disease) Code(s): I25.10 - ATHSCL HEART DISEASE OF [place] CORONARY ARTERY W/O ANG PCTRS Qualifiers: Coronary Disease-Associated Artery/Lesion type: [place] artery [place] vs. transplanted heart: [place] heart Associated angina: without angina Qualified Code(s): I25.10 - Atherosclerotic heart disease of [place] coronary artery without angina pectoris (5) CHF (congestive heart failure) Code(s): I50.9 - HEART FAILURE, UNSPECIFIED Qualifiers: Heart failure type: unspecified Heart failure chronicity: acute on chronic Qualified Code(s): I50.9 - Heart failure, unspecified (6) COPD (chronic obstructive pulmonary disease) Code(s): J44.9 - CHRONIC OBSTRUCTIVE PULMONARY DISEASE, UNSPECIFIED (7) COPD with acute exacerbation Code(s): J44.1 - CHRONIC OBSTRUCTIVE PULMONARY DISEASE W (ACUTE) EXACERBATION Assessment/Plan AGREE WITH BRONCHODILATORS/STEROIDS/O2 ID TO F/U STOOL CULTURE CONTINUE LASIX/MONITOR WEIGHT/ELECTROLYTES ANTICOAGULATION/RATE CONTROL/GLYCEMIC CONTROL/CORRECT VINCENT HUDDLESTON MD Problem List - Problems (1) CHF exacerbation Code(s): I50.9 - HEART FAILURE, UNSPECIFIED Qualifiers: Heart failure type: unspecified Qualified Code(s): I50.9 - Heart failure, unspecified (2) Shortness of breath Code(s): R06.02 - SHORTNESS OF BREATH (3) Atrial fibrillation Code(s): I48.91 - UNSPECIFIED ATRIAL FIBRILLATION Qualifiers: Atrial fibrillation type: persistent Qualified Code(s): I48.1 - Persistent atrial fibrillation (4) CAD (coronary artery disease) Code(s): I25.10 - ATHSCL HEART DISEASE OF [place] CORONARY ARTERY W/O ANG PCTRS Qualifiers: Coronary Disease-Associated Artery/Lesion type: [place] artery [place] vs. transplanted heart: [place] heart Associated angina: without angina Qualified Code(s): I25.10 - Atherosclerotic heart disease of [place] coronary artery without angina pectoris (5) CHF (congestive heart failure) Code(s): I50.9 - HEART FAILURE, UNSPECIFIED Qualifiers: Heart failure type: unspecified Heart failure chronicity: acute on chronic Qualified Code(s): I50.9 - Heart failure, unspecified (6) COPD (chronic obstructive pulmonary disease) Code(s): J44.9 - CHRONIC OBSTRUCTIVE PULMONARY DISEASE, UNSPECIFIED (7) COPD with acute exacerbation Code(s): J44.1 - CHRONIC OBSTRUCTIVE PULMONARY DISEASE W (ACUTE) EXACERBATION
[2018-05-25] MEDS: IPRATROPIUM BR 0.02% 0.5 MG/2.5 ML VIAL.NEB. NEB SCH ×4 (09:00→20:05)
--- NOTE | 2018-05-25 09:53 | PN ---
Progress Note, Physician History of Present Illness: still with lot of cough and sob and wheezing requiring resp support - Current Medication List Current Medications: Active Medications Atorvastatin Calcium (Lipitor -) 40 mg PO HS [facility] Last Admin: 05/24/18 20:59 Dose: 40 mg Budesonide/Formoterol Fumarate (Symbicort 160/4.5mcg -) 2 puff IH BID [facility] Last Admin: 05/24/18 21:00 Dose: 2 puff Dabigatran (Pradaxa -) 150 mg PO BID [facility] Last Admin: 05/24/18 20:59 Dose: 150 mg Diltiazem HCl (Cardizem -) 30 mg PO Q6HPO [facility] Last Admin: 05/25/18 06:39 Dose: 30 mg Furosemide (Lasix Injection -) 40 mg IVPUSH BID@0600,1400 [facility] Last Admin: 05/25/18 06:39 Dose: 40 mg Guaifenesin (Robitussin -) 10 ml PO Q6H PRN PRN Reason: COUGH Last Admin: 05/24/18 17:09 Dose: 10 ml Insulin Aspart (Novolog Vial Sliding Scale -) 1 vial SQ [facility]; Protocol Last Admin: 05/25/18 06:40 Dose: 2 units Ipratropium [place] (Atrovent 0.02% Nebulizer -) 1 amp NEB RQID [facility] Last Admin: 05/25/18 09:00 Dose: 1 amp Methylprednisolone Sodium Succinate (Solu-Medrol -) 40 mg IVPB Q8H-IV [facility] Last Admin: 05/25/18 02:50 Dose: 40 mg Metoprolol Succinate (Toprol Xl -) 25 mg PO DAILY [facility] Last Admin: 05/24/18 15:32 Dose: 25 mg Montelukast Sodium (Singulair -) 10 mg PO [facility] Last Admin: 05/24/18 20:59 Dose: 10 mg Potassium Chloride (K-Dur -) 20 meq PO DAILY [facility] Last Admin: 05/24/18 10:10 Dose: 20 meq Ranitidine HCl (Zantac -) 150 mg PO DAILY [facility] Last Admin: 05/24/18 10:10 Dose: 150 mg Trazodone HCl (Desyrel -) 100 mg PO [facility] Last Admin: 05/24/18 20:59 Dose: 100 mg - Objective Vital Signs: Vital Signs Temperature 98 F 05/25/18 05:00 Pulse Rate 100 H 05/25/18 05:00 Respiratory Rate 20 05/25/18 05:00 Blood Pressure 151/86 05/25/18 05:00 O2 Sat by Pulse Oximetry (%) 99 05/24/18 21:00 Constitutional: Yes: Calm, Mild Distress Cardiovascular: Yes: Pulse Irregular Respiratory: Yes: On Nasal O2, Poor Air Entry, Wheezes, Other Gastrointestinal: Yes: Normal Bowel Sounds, Soft Musculoskeletal: Yes: WNL Extremities: Yes: WNL Neurological: Yes: Alert Psychiatric: Yes: Alert Labs: CBC, BMP 05/24/18 06:00 05/25/18 05:30 INR, PTT INR 1.17 (0.82-1.09) H 05/22/18 13:05 Assessment/Plan Problem List - Problems (1) CHF exacerbation Code(s): I50.9 - HEART FAILURE, UNSPECIFIED Qualifiers: Heart failure type: unspecified Qualified Code(s): I50.9 - Heart failure, unspecified (2) Shortness of breath Code(s): R06.02 - SHORTNESS OF BREATH (3) Atrial fibrillation Code(s): I48.91 - UNSPECIFIED ATRIAL FIBRILLATION Qualifiers: Atrial fibrillation type: persistent Qualified Code(s): I48.1 - Persistent atrial fibrillation (4) CAD (coronary artery disease) Code(s): I25.10 - ATHSCL HEART DISEASE OF [place] CORONARY ARTERY W/O ANG PCTRS Qualifiers: Coronary Disease-Associated Artery/Lesion type: [place] artery [place] vs. transplanted heart: [place] heart Associated angina: without angina Qualified Code(s): I25.10 - Atherosclerotic heart disease of [place] coronary artery without angina pectoris (5) CHF (congestive heart failure) Code(s): I50.9 - HEART FAILURE, UNSPECIFIED Qualifiers: Heart failure type: unspecified Heart failure chronicity: acute on chronic Qualified Code(s): I50.9 - Heart failure, unspecified (6) COPD (chronic obstructive pulmonary disease) Code(s): J44.9 - CHRONIC OBSTRUCTIVE PULMONARY DISEASE, UNSPECIFIED (7) COPD with acute exacerbation Code(s): J44.1 - CHRONIC OBSTRUCTIVE PULMONARY DISEASE W (ACUTE) EXACERBATION plan will continue to watch the patient incentive douglas if spikes fever or wbc dennis end sputum cx dennis ee how patient does rest as per the team and pul
[2018-05-25] MEDS ORDERED: PT OWN MED DRAWER 7, Y5N ONE (10:00)
[2018-05-25] MEDS: DABIGATRAN ETEXILATE MESYLATE 150 MG CAPSULE PO SCH ×2 (10:02→21:41)
[2018-05-25] MEDS: RANITIDINE HCL 150 MG TABLET (FP) PO SCH (10:02)
[2018-05-25] MEDS: POTASSIUM CHLORIDE TABS 20 MEQ TABLET.ER (FP) PO SCH (10:02)
[2018-05-25] MEDS: metoPROLOL SUCCINATE 25 MG TAB.SR.24H (FP) PO SCH (10:02)
[2018-05-25] MEDS: BUDESONIDE/FORMETEROL FUMARATE 160/4.5 mcg INHALER IH SCH ×2 (10:02→21:49)
--- NOTE | 2018-05-25 10:36 | PN ---
Progress Note, Physician Chief Complaint: AWAKE ALERT C/O COUGH - Current Medication List Current Medications: Active Medications Atorvastatin Calcium (Lipitor -) 40 mg PO HS [facility] Last Admin: 05/24/18 20:59 Dose: 40 mg Budesonide/Formoterol Fumarate (Symbicort 160/4.5mcg -) 2 puff IH BID [facility] Last Admin: 05/25/18 10:02 Dose: 2 puff Dabigatran (Pradaxa -) 150 mg PO BID [facility] Last Admin: 05/25/18 10:02 Dose: 150 mg Diltiazem HCl (Cardizem -) 30 mg PO Q6HPO [facility] Last Admin: 05/25/18 06:39 Dose: 30 mg Furosemide (Lasix Injection -) 40 mg IVPUSH BID@0600,1400 [facility] Last Admin: 05/25/18 06:39 Dose: 40 mg Guaifenesin (Robitussin -) 10 ml PO Q6H PRN PRN Reason: COUGH Last Admin: 05/24/18 17:09 Dose: 10 ml Insulin Aspart (Novolog Vial Sliding Scale -) 1 vial SQ ACHS [facility]; Protocol Last Admin: 05/25/18 06:40 Dose: 2 units Ipratropium [place] (Atrovent 0.02% Nebulizer -) 1 amp NEB RQID [facility] Last Admin: 05/25/18 09:00 Dose: 1 amp Methylprednisolone Sodium Succinate (Solu-Medrol -) 40 mg IVPB Q8H-IV [facility] Last Admin: 05/25/18 10:03 Dose: 40 mg Metoprolol Succinate (Toprol Xl -) 25 mg PO DAILY [facility] Last Admin: 05/25/18 10:02 Dose: 25 mg Montelukast Sodium (Singulair -) 10 mg PO HS [facility] Last Admin: 05/24/18 20:59 Dose: 10 mg Potassium Chloride (K-Dur -) 20 meq PO DAILY [facility] Last Admin: 05/25/18 10:02 Dose: 20 meq Ranitidine HCl (Zantac -) 150 mg PO DAILY [facility] Last Admin: 05/25/18 10:02 Dose: 150 mg Trazodone HCl (Desyrel -) 100 mg PO HS [facility] Last Admin: 05/24/18 20:59 Dose: 100 mg - Objective Vital Signs: Vital Signs Temperature 98 F 05/25/18 05:00 Pulse Rate 100 H 05/25/18 05:00 Respiratory Rate 20 05/25/18 05:00 Blood Pressure 151/86 05/25/18 05:00 O2 Sat by Pulse Oximetry (%) 99 05/24/18 21:00 Constitutional: Yes: Mild Distress Eyes: Yes: WNL HENT: Yes: Hoarseness Neck: Yes: WNL Cardiovascular: Yes: WNL Respiratory: Yes: On Nasal O2, Rhonchi, SOB Gastrointestinal: Yes: WNL Genitourinary: Yes: WNL Musculoskeletal: Yes: WNL Extremities: Yes: WNL Edema: No Peripheral Pulses WNL: Yes Integumentary: Yes: WNL Wound/Incision: Yes: Clean/Dry Neurological: Yes: WNL ...Motor Strength: WNL Psychiatric: Yes: WNL Labs: CBC, BMP 05/24/18 06:00 05/25/18 05:30 INR, PTT INR 1.17 (0.82-1.09) H 05/22/18 13:05 Problem List - Problems (1) CHF exacerbation Code(s): I50.9 - HEART FAILURE, UNSPECIFIED Qualifiers: Heart failure type: unspecified Qualified Code(s): I50.9 - Heart failure, unspecified (2) Electrolyte abnormality Code(s): E87.8 - OTH DISORDERS OF ELECTROLYTE AND FLUID BALANCE, NEC (3) Shortness of breath Code(s): R06.02 - SHORTNESS OF BREATH (4) Atrial fibrillation Code(s): I48.91 - UNSPECIFIED ATRIAL FIBRILLATION Qualifiers: Atrial fibrillation type: persistent Qualified Code(s): I48.1 - Persistent atrial fibrillation (5) CAD (coronary artery disease) Code(s): I25.10 - ATHSCL HEART DISEASE OF [place] CORONARY ARTERY W/O ANG PCTRS Qualifiers: Coronary Disease-Associated Artery/Lesion type: [place] artery [place] vs. transplanted heart: [place] heart Associated angina: without angina Qualified Code(s): I25.10 - Atherosclerotic heart disease of [place] coronary artery without angina pectoris (6) COPD with acute exacerbation Code(s): J44.1 - CHRONIC OBSTRUCTIVE PULMONARY DISEASE W (ACUTE) EXACERBATION (7) Congestive heart failure with LV diastolic dysfunction, NYHA class 2 Code(s): I50.30 - UNSPECIFIED DIASTOLIC (CONGESTIVE) HEART FAILURE (8) Diabetes Code(s): E11.9 - TYPE 2 DIABETES MELLITUS WITHOUT COMPLICATIONS Qualifiers: Diabetes mellitus type: type 2 Diabetes mellitus prison insulin use: without oysterman use Diabetes mellitus complication status: without complication Qualified Code(s): E11.9 - Type 2 diabetes mellitus without complications Assessment/Plan TELE CARDIO WORKUP IN PROGRESS CHECK ECHO FOR EF% PULM EVAL APPRECIATED, IV STEROIDS AND NEBS 02 SUPPORT ADDED INCENTIVE SPIROMETRY OOB TO CHAIR ON PRADAXA/ASA DIETARY CONSULT A1C% ORDERED WITH BGM LIFESTYLE CHANGES STRESSED WITH MEDICAL COMPLIANCE
[2018-05-25] MEDS: guaiFENesin/CODEINE 5 ML UNIT-DOSE CUPS PO PRN ×2 (11:52→21:44)
[2018-05-25 12:21] VITALS: BMI 35.8
--- NOTE | 2018-05-25 13:28 | PN ---
Progress Note, Physician Chief Complaint: Cardiology FU Frequent cough Te[place] rapid Afib HR 80s-110 - Current Medication List Current Medications: Active Medications Atorvastatin Calcium (Lipitor -) 40 mg PO HS [facility] Last Admin: 05/24/18 20:59 Dose: 40 mg Budesonide/Formoterol Fumarate (Symbicort 160/4.5mcg -) 2 puff IH BID [facility] Last Admin: 05/25/18 10:02 Dose: 2 puff Dabigatran (Pradaxa -) 150 mg PO BID [facility] Last Admin: 05/25/18 10:02 Dose: 150 mg Diltiazem HCl (Cardizem -) 30 mg PO Q6HPO [facility] Last Admin: 05/25/18 11:52 Dose: 30 mg Furosemide (Lasix Injection -) 80 mg IVPUSH BID@0600,1400 [facility] Guaifenesin (Robitussin -) 10 ml PO Q6H PRN PRN Reason: COUGH Last Admin: 05/24/18 17:09 Dose: 10 ml Guaifenesin/Codeine Phosphate (Robitussin Ac -) 5 ml PO TID PRN PRN Reason: COUGH Last Admin: 05/25/18 11:52 Dose: 5 ml Insulin Aspart (Novolog Vial Sliding Scale -) 1 vial SQ ACHS [facility]; Protocol Last Admin: 05/25/18 11:52 Dose: 2 units Ipratropium [place] (Atrovent 0.02% Nebulizer -) 1 amp NEB RQID [facility] Last Admin: 05/25/18 11:00 Dose: 1 amp Methylprednisolone Sodium Succinate (Solu-Medrol -) 40 mg IVPB Q8H-IV [facility] Last Admin: 05/25/18 10:03 Dose: 40 mg Metoprolol Succinate (Toprol Xl -) 25 mg PO DAILY [facility] Last Admin: 05/25/18 10:02 Dose: 25 mg Montelukast Sodium (Singulair -) 10 mg PO HS [facility] Last Admin: 05/24/18 20:59 Dose: 10 mg Potassium Chloride (K-Dur -) 20 meq PO DAILY [facility] Last Admin: 05/25/18 10:02 Dose: 20 meq Ranitidine HCl (Zantac -) 150 mg PO DAILY [facility] Last Admin: 05/25/18 10:02 Dose: 150 mg Trazodone HCl (Desyrel -) 100 mg PO HS [facility] Last Admin: 05/24/18 20:59 Dose: 100 mg - Objective Vital Signs: Vital Signs Temperature 98 F 05/25/18 10:00 Pulse Rate 88 05/25/18 10:00 Respiratory Rate 20 05/25/18 10:00 Blood Pressure 120/74 05/25/18 10:00 O2 Sat by Pulse Oximetry (%) 99 05/24/18 21:00 Constitutional: Yes: Well Nourished, Mild Distress Eyes: Yes: WNL HENT: Yes: Atraumatic, Normocephalic Neck: Yes: Trachea Midline Cardiovascular: Yes: Pulse Irregular, JVD, S1, S2 Respiratory: Yes: Cough, Diminished Gastrointestinal: Yes: Normal Bowel Sounds, Soft Edema: Yes Edema: LLE: 2+, RLE: 2+ Labs: CBC, BMP 05/24/18 06:00 05/25/18 05:30 INR, PTT INR 1.17 (0.82-1.09) H 05/22/18 13:05 Problem List - Problems (1) CHF exacerbation Code(s): I50.9 - HEART FAILURE, UNSPECIFIED Qualifiers: Heart failure type: unspecified Qualified Code(s): I50.9 - Heart failure, unspecified (2) Atrial fibrillation Code(s): I48.91 - UNSPECIFIED ATRIAL FIBRILLATION Qualifiers: Atrial fibrillation type: persistent Qualified Code(s): I48.1 - Persistent atrial fibrillation Assessment/Plan 63 M with chronic Afib and a known history of Non-ischemic cardiomyopathy with cardiac cath in 2006 and 2015 both showing moderate LV dysfunction and patent cors. Admitted with cough and dyspnea with acute on chronic systolic heart failure and rapid atrial fibrillation. Echocardiogram yesterday showing severely reduced EF, moderate MR. significantly Volume overloaded still. Weight increase noted. Increase IV LAsix 80mg bid. Monitor weight and I/O Afib rates improved. Will try to transition off Diltiazem slowly continue Metoprolol XL 25mg qd-possible raise dose tomorrow.
--- NOTE | 2018-05-25 13:50 | PN ---
Progress Note, Physician History of Present Illness: Pt seen and examined at bedside. He is awake and alert. He still complains of shortness of breath. - Current Medication List Current Medications: Active Medications Atorvastatin Calcium (Lipitor -) 40 mg PO HS [facility] Last Admin: 05/24/18 20:59 Dose: 40 mg Budesonide/Formoterol Fumarate (Symbicort 160/4.5mcg -) 2 puff IH BID [facility] Last Admin: 05/25/18 10:02 Dose: 2 puff Dabigatran (Pradaxa -) 150 mg PO BID [facility] Last Admin: 05/25/18 10:02 Dose: 150 mg Diltiazem HCl (Cardizem -) 30 mg PO Q6HPO [facility] Last Admin: 05/25/18 11:52 Dose: 30 mg Furosemide (Lasix Injection -) 80 mg IVPUSH BID@0600,1400 [facility] Last Admin: 05/25/18 13:39 Dose: 80 mg Guaifenesin (Robitussin -) 10 ml PO Q6H PRN PRN Reason: COUGH Last Admin: 05/24/18 17:09 Dose: 10 ml Guaifenesin/Codeine Phosphate (Robitussin Ac -) 5 ml PO TID PRN PRN Reason: COUGH Last Admin: 05/25/18 11:52 Dose: 5 ml Insulin Aspart (Novolog Vial Sliding Scale -) 1 vial SQ ACHS [facility]; Protocol Last Admin: 05/25/18 11:52 Dose: 2 units Ipratropium [place] (Atrovent 0.02% Nebulizer -) 1 amp NEB RQID [facility] Last Admin: 05/25/18 11:00 Dose: 1 amp Methylprednisolone Sodium Succinate (Solu-Medrol -) 40 mg IVPB Q8H-IV [facility] Last Admin: 05/25/18 10:03 Dose: 40 mg Metoprolol Succinate (Toprol Xl -) 25 mg PO DAILY [facility] Last Admin: 05/25/18 10:02 Dose: 25 mg Montelukast Sodium (Singulair -) 10 mg PO HS [facility] Last Admin: 05/24/18 20:59 Dose: 10 mg Potassium Chloride (K-Dur -) 20 meq PO DAILY [facility] Last Admin: 05/25/18 10:02 Dose: 20 meq Ranitidine HCl (Zantac -) 150 mg PO DAILY [facility] Last Admin: 05/25/18 10:02 Dose: 150 mg Trazodone HCl (Desyrel -) 100 mg PO HS [facility] Last Admin: 05/24/18 20:59 Dose: 100 mg - Objective Vital Signs: Vital Signs Temperature 98 F 05/25/18 10:00 Pulse Rate 88 05/25/18 10:00 Respiratory Rate 20 05/25/18 10:00 Blood Pressure 120/74 05/25/18 10:00 O2 Sat by Pulse Oximetry (%) 99 05/24/18 21:00 Constitutional: Yes: Calm Eyes: Yes: Conjunctiva Clear HENT: Yes: Atraumatic Neck: Yes: Supple Cardiovascular: Yes: S1, S2 Respiratory: Yes: On Nasal O2, Rhonchi Gastrointestinal: Yes: Soft Musculoskeletal: Yes: WNL Edema: Yes Edema: LLE: 2+, RLE: 2+ Neurological: Yes: Oriented Psychiatric: Yes: Oriented Labs: CBC, BMP 05/24/18 06:00 05/25/18 05:30 INR, PTT INR 1.17 (0.82-1.09) H 05/22/18 13:05 Problem List - Problems (1) Hypokalemia Code(s): E87.6 - HYPOKALEMIA (2) Diabetes Code(s): E11.9 - TYPE 2 DIABETES MELLITUS WITHOUT COMPLICATIONS Qualifiers: Diabetes mellitus type: type 2 Diabetes mellitus halfway insulin use: without rodent exterminator use Diabetes mellitus complication status: without complication Qualified Code(s): E11.9 - Type 2 diabetes mellitus without complications (3) Hypertension Code(s): I10 - ESSENTIAL (PRIMARY) HYPERTENSION Qualifiers: Hypertension type: essential hypertension Qualified Code(s): I10 - Essential (primary) hypertension Assessment/Plan Current Medications Generic Name Dose Route Start Last Admin Trade Name Freq PRN Reason Stop Dose Admin Atorvastatin Calcium 40 mg 05/22/18 22:00 05/24/18 20:59 Lipitor - PO 40 mg HS [facility] Administration Budesonide/Formoterol Fumarate 2 puff 05/22/18 22:00 05/25/18 10:02 Symbicort 160/4.5mcg - IH 2 puff BID [facility] Administration Dabigatran 150 mg 05/22/18 22:00 05/25/18 10:02 Pradaxa - PO 150 mg BID [facility] Administration Diltiazem HCl 30 mg 05/23/18 12:00 05/25/18 11:52 Cardizem - PO 30 mg Q6HPO [facility] Administration Furosemide 80 mg 05/25/18 13:22 05/25/18 13:39 Lasix Injection - IVPUSH 80 mg BID@0600,1400 [facility] Administration Guaifenesin 10 ml 05/22/18 23:36 05/24/18 17:09 Robitussin - PO 10 ml Q6H PRN Administration COUGH Guaifenesin/Codeine Phosphate 5 ml 05/25/18 10:52 05/25/18 11:52 Robitussin Ac - PO 5 ml TID PRN Administration COUGH Insulin Aspart 1 vial 05/22/18 16:30 05/25/18 11:52 Novolog Vial Sliding Scale - SQ 2 units ACHS [facility] Administration Protocol Ipratropium [place] 1 amp 05/22/18 16:00 05/25/18 11:00 Atrovent 0.02% Nebulizer - NEB 1 amp RQID [facility] Administration Methylprednisolone Sodium Succinate 40 mg 05/22/18 18:00 05/25/18 10:03 Solu-Medrol - IVPB 40 mg Q8H-IV [facility] Administration Metoprolol Succinate 25 mg 05/24/18 14:45 05/25/18 10:02 Toprol Xl - PO 25 mg DAILY [facility] Administration Montelukast Sodium 10 mg 05/22/18 22:00 05/24/18 20:59 Singulair - PO 10 mg HS [facility] Administration Potassium Chloride 20 meq 05/22/18 15:45 05/25/18 10:02 K-Dur - PO 20 meq DAILY [facility] Administration Ranitidine HCl 150 mg 05/23/18 10:00 05/25/18 10:02 Zantac - PO 150 mg DAILY [facility] Administration Trazodone HCl 100 mg 05/22/18 22:00 05/24/18 20:59 Desyrel - PO 100 mg HS [facility] Administration Impression 1. CHF 2. hypokalemia 3. hypomagnesemia 4. asthma 5. a-fib 6. DM Plan - volume status is not improvd - cont IV lasix - monitor lytes - potassium and mag stable - steroids with taper per pulm - will follow
[2018-05-25] MEDS ORDERED: traZODone HCL 50 MG TABLET (FP) ONE (21:29)
[2018-05-25] MEDS: ATORVASTATIN CA 40 MG TABLET (FP) PO SCH (21:42)
[2018-05-25] MEDS: MONTELUKAST NA 10 MG TABLET PO SCH (21:42)
[2018-05-25] MEDS: traZODone HCL 100 MG TABLET (FP) PO SCH (21:42)
[2018-05-26] MEDS: dilTIAZem HCL 30 MG TABLET (FP) PO SCH ×3 (00:11→12:18)
[2018-05-26] MEDS: methylPREDNISolone NA SUCC 40 MG/1 ML VIAL IVPB SCH ×2 (01:33→10:07)
[2018-05-26] MEDS: FUROSEMIDE 40 MG/4 ML INJECTABLE VIAL IVPUSH SCH ×2 (06:12→14:29)
[2018-05-26] MEDS: INSULIN SLIDING SCALE (NOVOLOG) 1 VIAL SQ SCH ×4 (06:13→21:56)
[2018-05-26] MEDS: IPRATROPIUM BR 0.02% 0.5 MG/2.5 ML VIAL.NEB. NEB SCH ×4 (07:42→20:37)
[2018-05-26] MEDS: POTASSIUM CHLORIDE TABS 20 MEQ TABLET.ER (FP) PO SCH (10:06)
[2018-05-26] MEDS: BUDESONIDE/FORMETEROL FUMARATE 160/4.5 mcg INHALER IH SCH ×2 (10:07→21:52)
[2018-05-26] MEDS: RANITIDINE HCL 150 MG TABLET (FP) PO SCH (10:07)
[2018-05-26] MEDS: DABIGATRAN ETEXILATE MESYLATE 150 MG CAPSULE PO SCH ×2 (10:07→21:53)
[2018-05-26] MEDS: metoPROLOL SUCCINATE 25 MG TAB.SR.24H (FP) PO SCH (10:07)
[2018-05-26] MEDS: guaiFENesin/CODEINE 5 ML UNIT-DOSE CUPS PO PRN (10:19)
--- NOTE | 2018-05-26 10:32 | PN ---
Progress Note, Physician History of Present Illness: PULMONARY ALERT,FEELING BETTER,LESS DYSPNEIC,+ COUGH,-CP. - Current Medication List Current Medications: Active Medications Atorvastatin Calcium (Lipitor -) 40 mg PO HS [facility] Last Admin: 05/25/18 21:42 Dose: 40 mg Budesonide/Formoterol Fumarate (Symbicort 160/4.5mcg -) 2 puff IH BID [facility] Last Admin: 05/26/18 10:07 Dose: 2 puff Dabigatran (Pradaxa -) 150 mg PO BID [facility] Last Admin: 05/26/18 10:07 Dose: 150 mg Diltiazem HCl (Cardizem -) 30 mg PO Q6HPO [facility] Last Admin: 05/26/18 06:12 Dose: 30 mg Furosemide (Lasix Injection -) 80 mg IVPUSH BID@0600,1400 [facility] Last Admin: 05/26/18 06:12 Dose: 80 mg Guaifenesin (Robitussin -) 10 ml PO Q6H PRN PRN Reason: COUGH Last Admin: 05/24/18 17:09 Dose: 10 ml Guaifenesin/Codeine Phosphate (Robitussin Ac -) 5 ml PO TID PRN PRN Reason: COUGH Last Admin: 05/26/18 10:19 Dose: 5 ml Insulin Aspart (Novolog Vial Sliding Scale -) 1 vial SQ ACHS [facility]; Protocol Last Admin: 05/26/18 06:13 Dose: 2 units Ipratropium [place] (Atrovent 0.02% Nebulizer -) 1 amp NEB RQID [facility] Last Admin: 05/26/18 07:42 Dose: 1 amp Methylprednisolone Sodium Succinate (Solu-Medrol -) 40 mg IVPB Q8H-IV [facility] Last Admin: 05/26/18 10:07 Dose: 40 mg Metoprolol Succinate (Toprol Xl -) 25 mg PO DAILY [facility] Last Admin: 05/26/18 10:07 Dose: 25 mg Montelukast Sodium (Singulair -) 10 mg PO HS [facility] Last Admin: 05/25/18 21:42 Dose: 10 mg Potassium Chloride (K-Dur -) 20 meq PO DAILY [facility] Last Admin: 05/26/18 10:06 Dose: 20 meq Ranitidine HCl (Zantac -) 150 mg PO DAILY [facility] Last Admin: 07/16/18 10:07 Dose: 150 mg Trazodone HCl (Desyrel -) 100 mg PO HS [facility] Last Admin: 05/25/18 21:42 Dose: 100 mg - Objective Vital Signs: Vital Signs Temperature 98 F 05/26/18 10:00 Pulse Rate 90 05/26/18 10:00 Respiratory Rate 20 05/26/18 10:00 Blood Pressure 120/78 05/26/18 10:00 O2 Sat by Pulse Oximetry (%) 98 05/25/18 20:12 Constitutional: Yes: Well Nourished, Calm Eyes: Yes: WNL HENT: Yes: WNL Neck: Yes: WNL Cardiovascular: Yes: Pulse Irregular, S1, S2 Respiratory: Yes: Rhonchi (SCATTERED OLLIE RHONCHI) Gastrointestinal: Yes: Normal Bowel Sounds, Soft Extremities: Yes: WNL Edema: Yes Labs: CBC, BMP 05/25/18 05:30 Assessment/Plan (1) CHF exacerbation Code(s): I50.9 - HEART FAILURE, UNSPECIFIED Qualifiers: Heart failure type: unspecified Qualified Code(s): I50.9 - Heart failure, unspecified (2) Shortness of breath Code(s): R06.02 - SHORTNESS OF BREATH (3) Atrial fibrillation Code(s): I48.91 - UNSPECIFIED ATRIAL FIBRILLATION Qualifiers: Atrial fibrillation type: persistent Qualified Code(s): I48.1 - Persistent atrial fibrillation (4) CAD (coronary artery disease) Code(s): I25.10 - ATHSCL HEART DISEASE OF [place] CORONARY ARTERY W/O ANG PCTRS Qualifiers: Coronary Disease-Associated Artery/Lesion type: [place] artery [place] vs. transplanted heart: [place] heart Associated angina: without angina Qualified Code(s): I25.10 - Atherosclerotic heart disease of [place] coronary artery without angina pectoris (5) CHF (congestive heart failure) Code(s): I50.9 - HEART FAILURE, UNSPECIFIED Qualifiers: Heart failure type: unspecified Heart failure chronicity: acute on chronic Qualified Code(s): I50.9 - Heart failure, unspecified (6) COPD (chronic obstructive pulmonary disease) Code(s): J44.9 - CHRONIC OBSTRUCTIVE PULMONARY DISEASE, UNSPECIFIED (7) COPD with acute exacerbation Code(s): J44.1 - CHRONIC OBSTRUCTIVE PULMONARY DISEASE W (ACUTE) EXACERBATION Assessment/Plan BRONCHODILATORS STEROID TAPER O2 LASIX MONITOR WEIGHT/ELECTROLYTES ANTICOAGULATION RATE CONTROL GLYCEMIC CONTROL DR TEJEDA Problem List - Problems (1) CHF exacerbation Code(s): I50.9 - HEART FAILURE, UNSPECIFIED Qualifiers: Heart failure type: unspecified Qualified Code(s): I50.9 - Heart failure, unspecified (2) Shortness of breath Code(s): R06.02 - SHORTNESS OF BREATH (3) Atrial fibrillation Code(s): I48.91 - UNSPECIFIED ATRIAL FIBRILLATION Qualifiers: Atrial fibrillation type: persistent Qualified Code(s): I48.1 - Persistent atrial fibrillation (4) CAD (coronary artery disease) Code(s): I25.10 - ATHSCL HEART DISEASE OF [place] CORONARY ARTERY W/O ANG PCTRS Qualifiers: Coronary Disease-Associated Artery/Lesion type: [place] artery [place] vs. transplanted heart: [place] heart Associated angina: without angina Qualified Code(s): I25.10 - Atherosclerotic heart disease of [place] coronary artery without angina pectoris (5) CHF (congestive heart failure) Code(s): I50.9 - HEART FAILURE, UNSPECIFIED Qualifiers: Heart failure type: unspecified Heart failure chronicity: acute on chronic Qualified Code(s): I50.9 - Heart failure, unspecified (6) COPD (chronic obstructive pulmonary disease) Code(s): J44.9 - CHRONIC OBSTRUCTIVE PULMONARY DISEASE, UNSPECIFIED (7) COPD with acute exacerbation Code(s): J44.1 - CHRONIC OBSTRUCTIVE PULMONARY DISEASE W (ACUTE) EXACERBATION
--- NOTE | 2018-05-26 11:06 | PN ---
Progress Note, Physician Chief Complaint: patient looking better says his cough and breathing slightly better - Current Medication List Current Medications: Active Medications Atorvastatin Calcium (Lipitor -) 40 mg PO HS [facility] Last Admin: 05/25/18 21:42 Dose: 40 mg Budesonide/Formoterol Fumarate (Symbicort 160/4.5mcg -) 2 puff IH BID [facility] Last Admin: 05/26/18 10:07 Dose: 2 puff Dabigatran (Pradaxa -) 150 mg PO BID [facility] Last Admin: 05/26/18 10:07 Dose: 150 mg Diltiazem HCl (Cardizem -) 30 mg PO Q6HPO [facility] Last Admin: 05/26/18 06:12 Dose: 30 mg Furosemide (Lasix Injection -) 80 mg IVPUSH BID@0600,1400 [facility] Last Admin: 05/26/18 06:12 Dose: 80 mg Guaifenesin (Robitussin -) 10 ml PO Q6H PRN PRN Reason: COUGH Last Admin: 05/24/18 17:09 Dose: 10 ml Guaifenesin/Codeine Phosphate (Robitussin Ac -) 5 ml PO TID PRN PRN Reason: COUGH Last Admin: 05/26/18 10:19 Dose: 5 ml Insulin Aspart (Novolog Vial Sliding Scale -) 1 vial SQ [facility]; Protocol Last Admin: 05/26/18 06:13 Dose: 2 units Ipratropium [place] (Atrovent 0.02% Nebulizer -) 1 amp NEB RQID [facility] Last Admin: 05/26/18 07:42 Dose: 1 amp Metoprolol Succinate (Toprol Xl -) 25 mg PO DAILY [facility] Last Admin: 05/26/18 10:07 Dose: 25 mg Montelukast Sodium (Singulair -) 10 mg PO [facility] Last Admin: 05/25/18 21:42 Dose: 10 mg Potassium Chloride (K-Dur -) 20 meq PO DAILY [facility] Last Admin: 05/26/18 10:06 Dose: 20 meq Ranitidine HCl (Zantac -) 150 mg PO DAILY [facility] Last Admin: 05/26/18 10:07 Dose: 150 mg Trazodone HCl (Desyrel -) 100 mg PO [facility] Last Admin: 05/25/18 21:42 Dose: 100 mg - Objective Vital Signs: Vital Signs Temperature 98 F 05/26/18 10:00 Pulse Rate 90 05/26/18 10:00 Respiratory Rate 20 05/26/18 10:00 Blood Pressure 120/78 05/26/18 10:00 O2 Sat by Pulse Oximetry (%) 98 05/25/18 20:12 Constitutional: Yes: Calm Neck: Yes: Trachea Midline Cardiovascular: Yes: Regular Rate and Rhythm, S1, S2 Respiratory: Yes: On Nasal O2, Rhonchi Gastrointestinal: Yes: Normal Bowel Sounds, Soft Extremities: Yes: Other (chronic venous stasis changes) Edema: Yes Labs: CBC, BMP 05/24/18 06:00 05/25/18 05:30 INR, PTT INR 1.17 (0.82-1.09) H 05/22/18 13:05 Problem List - Problems (1) Shortness of breath Assessment/Plan: copd exacerbatin with/ vascular congestion- acute on chronic systolic heart failure iv lasix now 80mg bid trend bnp- now trending down bronchodilators pulm consult noted oxygen via nasal canula CT chest to evaluate the lung nodules as seen on previous ct scan- resolution of previous seen nodules dvt ppx sputum culture iv steroids now taper to bid inc LFT most likley secondary to hepatic congestion and now down trending Code(s): R06.02 - SHORTNESS OF BREATH (2) Atrial fibrillation Assessment/Plan: telemetry on pradaxa iv cardizem drip- stop and start po cardizem echo cardiac monitoring cardiology on board Code(s): I48.91 - UNSPECIFIED ATRIAL FIBRILLATION Qualifiers: Atrial fibrillation type: persistent Qualified Code(s): I48.1 - Persistent atrial fibrillation (3) COPD (chronic obstructive pulmonary disease) Assessment/Plan: iv steroids oxygen bronchodilators Code(s): J44.9 - CHRONIC OBSTRUCTIVE PULMONARY DISEASE, UNSPECIFIED (4) Hypercholesterolemia Assessment/Plan: lipid panel statin Code(s): E78.0 - PURE HYPERCHOLESTEROLEMIA * DO NOT USE * (5) Diabetes Assessment/Plan: bgm sliding scale hgb1c 5.6 Code(s): E11.9 - TYPE 2 DIABETES MELLITUS WITHOUT COMPLICATIONS Qualifiers: Diabetes mellitus type: type 2 Diabetes mellitus telescope repairer insulin use: without group home use Diabetes mellitus complication status: without complication Qualified Code(s): E11.9 - Type 2 diabetes mellitus without complications (6) Electrolyte abnormality Assessment/Plan: repleted potassium and magnesium - improved Code(s): E87.8 - OTH DISORDERS OF ELECTROLYTE AND FLUID BALANCE, NEC
--- NOTE | 2018-05-26 11:20 | PN ---
Progress Note, Physician History of Present Illness: Pt seen and examined at bedside. He is awake and alert. He still complains of shortness of breath. - Current Medication List Current Medications: Active Medications Atorvastatin Calcium (Lipitor -) 40 mg PO HS [facility] Last Admin: 05/25/18 21:42 Dose: 40 mg Budesonide/Formoterol Fumarate (Symbicort 160/4.5mcg -) 2 puff IH BID [facility] Last Admin: 05/26/18 10:07 Dose: 2 puff Dabigatran (Pradaxa -) 150 mg PO BID [facility] Last Admin: 05/26/18 10:07 Dose: 150 mg Diltiazem HCl (Cardizem -) 30 mg PO Q6HPO [facility] Last Admin: 05/26/18 06:12 Dose: 30 mg Furosemide (Lasix Injection -) 80 mg IVPUSH BID@0600,1400 [facility] Last Admin: 05/26/18 06:12 Dose: 80 mg Guaifenesin (Robitussin -) 10 ml PO Q6H PRN PRN Reason: COUGH Last Admin: 05/24/18 17:09 Dose: 10 ml Guaifenesin/Codeine Phosphate (Robitussin Ac -) 5 ml PO TID PRN PRN Reason: COUGH Last Admin: 05/26/18 10:19 Dose: 5 ml Insulin Aspart (Novolog Vial Sliding Scale -) 1 vial SQ ACHS [facility]; Protocol Last Admin: 05/26/18 06:13 Dose: 2 units Ipratropium [place] (Atrovent 0.02% Nebulizer -) 1 amp NEB RQID [facility] Last Admin: 05/26/18 11:11 Dose: 1 amp Methylprednisolone Sodium Succinate (Solu-Medrol -) 40 mg IVPB BID [facility] Metoprolol Succinate (Toprol Xl -) 25 mg PO DAILY [facility] Last Admin: 05/26/18 10:07 Dose: 25 mg Montelukast Sodium (Singulair -) 10 mg PO HS [facility] Last Admin: 05/25/18 21:42 Dose: 10 mg Potassium Chloride (K-Dur -) 20 meq PO DAILY [facility] Last Admin: 05/26/18 10:06 Dose: 20 meq Ranitidine HCl (Zantac -) 150 mg PO DAILY [facility] Last Admin: 05/26/18 10:07 Dose: 150 mg Trazodone HCl (Desyrel -) 100 mg PO HS [facility] Last Admin: 05/25/18 21:42 Dose: 100 mg - Objective Vital Signs: Vital Signs Temperature 98 F 05/26/18 10:00 Pulse Rate 90 05/26/18 10:00 Respiratory Rate 20 05/26/18 10:00 Blood Pressure 120/78 05/26/18 10:00 O2 Sat by Pulse Oximetry (%) 98 05/25/18 20:12 Constitutional: Yes: Calm Eyes: Yes: Conjunctiva Clear HENT: Yes: Atraumatic Neck: Yes: Supple Cardiovascular: Yes: S1, S2 Respiratory: Yes: CTA Bilaterally Gastrointestinal: Yes: Normal Bowel Sounds, Soft Genitourinary: Yes: WNL Musculoskeletal: Yes: WNL Edema: Yes Edema: LLE: 2+, RLE: 2+ Integumentary: Yes: Venous Stasis Changes Neurological: Yes: Oriented Psychiatric: Yes: Oriented Labs: CBC, BMP 05/24/18 06:00 05/25/18 05:30 INR, PTT INR 1.17 (0.82-1.09) H 05/22/18 13:05 Problem List - Problems (1) Hypokalemia Code(s): E87.6 - HYPOKALEMIA (2) Diabetes Code(s): E11.9 - TYPE 2 DIABETES MELLITUS WITHOUT COMPLICATIONS Qualifiers: Diabetes mellitus type: type 2 Diabetes mellitus terminal block assembler insulin use: without terminal block assembler use Diabetes mellitus complication status: without complication Qualified Code(s): E11.9 - Type 2 diabetes mellitus without complications (3) Hypertension Code(s): I10 - ESSENTIAL (PRIMARY) HYPERTENSION Qualifiers: Hypertension type: essential hypertension Qualified Code(s): I10 - Essential (primary) hypertension Assessment/Plan Current Medications Generic Name Dose Route Start Last Admin Trade Name Freq PRN Reason Stop Dose Admin Atorvastatin Calcium 40 mg 05/22/18 22:00 05/25/18 21:42 Lipitor - PO 40 mg HS [facility] Administration Budesonide/Formoterol Fumarate 2 puff 05/22/18 22:00 05/26/18 10:07 Symbicort 160/4.5mcg - IH 2 puff BID [facility] Administration Dabigatran 150 mg 05/22/18 22:00 05/26/18 10:07 Pradaxa - PO 150 mg BID [facility] Administration Diltiazem HCl 30 mg 05/23/18 12:00 05/26/18 06:12 Cardizem - PO 30 mg Q6HPO [facility] Administration Furosemide 80 mg 05/25/18 13:22 05/26/18 06:12 Lasix Injection - IVPUSH 80 mg BID@0600,1400 [facility] Administration Guaifenesin 10 ml 05/22/18 23:36 05/24/18 17:09 Robitussin - PO 10 ml Q6H PRN Administration COUGH Guaifenesin/Codeine Phosphate 5 ml 05/25/18 10:52 05/26/18 10:19 Robitussin Ac - PO 5 ml TID PRN Administration COUGH Insulin Aspart 1 vial 05/22/18 16:30 05/26/18 06:13 Novolog Vial Sliding Scale - SQ 2 units ACHS [facility] Administration Protocol Ipratropium [place] 1 amp 05/22/18 16:00 05/26/18 11:11 Atrovent 0.02% Nebulizer - NEB 1 amp RQID [facility] Administration Methylprednisolone Sodium Succinate 40 mg 05/26/18 22:00 Solu-Medrol - IVPB BID [facility] Metoprolol Succinate 25 mg 05/24/18 14:45 05/26/18 10:07 Toprol Xl - PO 25 mg DAILY [facility] Administration Montelukast Sodium 10 mg 05/22/18 22:00 05/25/18 21:42 Singulair - PO 10 mg HS [facility] Administration Potassium Chloride 20 meq 05/22/18 15:45 05/26/18 10:06 K-Dur - PO 20 meq DAILY [facility] Administration Ranitidine HCl 150 mg 05/23/18 10:00 05/26/18 10:07 Zantac - PO 150 mg DAILY [facility] Administration Trazodone HCl 100 mg 05/22/18 22:00 05/25/18 21:42 Desyrel - PO 100 mg HS [facility] Administration Impression 1. CHF 2. hypokalemia 3. hypomagnesemia 4. asthma 5. a-fib 6. DM Plan - monitor lytes while on diuretics - pt remains volume overloaded - potassium and mag stable - steroids with taper per pulm - will follow
[2018-05-26] MEDS ORDERED: INSULIN (NOVOLOG) ASPART 100 UNITS/ML 10ML VIAL ONE (12:09)
--- NOTE | 2018-05-26 12:54 | PN ---
Progress Note, Physician History of Present Illness: still with lot of cough and sob and wheezing requiring resp support says he is feeling better - Current Medication List Current Medications: Active Medications Atorvastatin Calcium (Lipitor -) 40 mg PO HS [facility] Last Admin: 05/25/18 21:42 Dose: 40 mg Budesonide/Formoterol Fumarate (Symbicort 160/4.5mcg -) 2 puff IH BID [facility] Last Admin: 05/26/18 10:07 Dose: 2 puff Dabigatran (Pradaxa -) 150 mg PO BID [facility] Last Admin: 05/26/18 10:07 Dose: 150 mg Diltiazem HCl (Cardizem -) 30 mg PO Q6HPO [facility] Last Admin: 05/26/18 12:18 Dose: 30 mg Furosemide (Lasix Injection -) 80 mg IVPUSH BID@0600,1400 [facility] Last Admin: 05/26/18 06:12 Dose: 80 mg Guaifenesin (Robitussin -) 10 ml PO Q6H PRN PRN Reason: COUGH Last Admin: 05/24/18 17:09 Dose: 10 ml Guaifenesin/Codeine Phosphate (Robitussin Ac -) 5 ml PO TID PRN PRN Reason: COUGH Last Admin: 05/26/18 10:19 Dose: 5 ml Insulin Aspart (Novolog Vial Sliding Scale -) 1 vial SQ [facility]; Protocol Last Admin: 05/26/18 12:19 Dose: 2 units Ipratropium [place] (Atrovent 0.02% Nebulizer -) 1 amp NEB RQID [facility] Last Admin: 05/26/18 11:11 Dose: 1 amp Methylprednisolone Sodium Succinate (Solu-Medrol -) 40 mg IVPB BID [facility] Metoprolol Succinate (Toprol Xl -) 25 mg PO DAILY [facility] Last Admin: 05/26/18 10:07 Dose: 25 mg Montelukast Sodium (Singulair -) 10 mg PO [facility] Last Admin: 05/25/18 21:42 Dose: 10 mg Potassium Chloride (K-Dur -) 20 meq PO DAILY [facility] Last Admin: 05/26/18 10:06 Dose: 20 meq Ranitidine HCl (Zantac -) 150 mg PO DAILY [facility] Last Admin: 05/26/18 10:07 Dose: 150 mg Trazodone HCl (Desyrel -) 100 mg PO [facility] Last Admin: 05/25/18 21:42 Dose: 100 mg - Objective Vital Signs: Vital Signs Temperature 98 F 05/26/18 10:00 Pulse Rate 90 05/26/18 10:00 Respiratory Rate 20 05/26/18 10:00 Blood Pressure 120/78 05/26/18 10:00 O2 Sat by Pulse Oximetry (%) 99 05/26/18 09:00 Constitutional: Yes: Calm, Mild Distress Eyes: Yes: Conjunctiva Clear Cardiovascular: Yes: S1, S2 Respiratory: Yes: On Nasal O2, Poor Air Entry, Wheezes Gastrointestinal: Yes: Normal Bowel Sounds, Soft Musculoskeletal: Yes: WNL Extremities: Yes: WNL Neurological: Yes: Alert, Oriented Psychiatric: Yes: Alert, Oriented Labs: CBC, BMP 05/24/18 06:00 05/25/18 05:30 INR, PTT INR 1.17 (0.82-1.09) H 05/22/18 13:05 Assessment/Plan Problem List - Problems (1) CHF exacerbation Code(s): I50.9 - HEART FAILURE, UNSPECIFIED Qualifiers: Heart failure type: unspecified Qualified Code(s): I50.9 - Heart failure, unspecified (2) Shortness of breath Code(s): R06.02 - SHORTNESS OF BREATH (3) Atrial fibrillation Code(s): I48.91 - UNSPECIFIED ATRIAL FIBRILLATION Qualifiers: Atrial fibrillation type: persistent Qualified Code(s): I48.1 - Persistent atrial fibrillation (4) CAD (coronary artery disease) Code(s): I25.10 - ATHSCL HEART DISEASE OF [place] CORONARY ARTERY W/O ANG PCTRS Qualifiers: Coronary Disease-Associated Artery/Lesion type: [place] artery [place] vs. transplanted heart: [place] heart Associated angina: without angina Qualified Code(s): I25.10 - Atherosclerotic heart disease of [place] coronary artery without angina pectoris (5) CHF (congestive heart failure) Code(s): I50.9 - HEART FAILURE, UNSPECIFIED Qualifiers: Heart failure type: unspecified Heart failure chronicity: acute on chronic Qualified Code(s): I50.9 - Heart failure, unspecified (6) COPD (chronic obstructive pulmonary disease) Code(s): J44.9 - CHRONIC OBSTRUCTIVE PULMONARY DISEASE, UNSPECIFIED (7) COPD with acute exacerbation Code(s): J44.1 - CHRONIC OBSTRUCTIVE PULMONARY DISEASE W (ACUTE) EXACERBATION plan will continue to watch the patient incentive douglas physio rest as per pul
--- NOTE | 2018-05-26 16:36 | PN ---
Progress Note, Physician Chief Complaint: The patient has SOB on minimal exertion, orthopnea and dry cough. No chest pain or palpitation. Tele shows persistent atrial fibrillation with controlled VR. NSVT noted. History of Present Illness: 63 year-old man with a PMHx of chronic Afib and chronic systolic CHF secondary to non-ischemic cardiomyopathy with cardiac cath in 2006 and 2015 both showing moderate LV dysfunction and patent coronary arteries. Admitted with cough and dyspnea with evidence of acute on chronic systolic heart failure and rapid atrial fibrillation. Echocardiogram 05/23/2018 showed mild LV dilatation with severe LV systolic dysfunction and restrictive physiology. Normal RV. Mild LA dilatation. Moderate MR. - Current Medication List Current Medications: Active Medications Atorvastatin Calcium (Lipitor -) 40 mg PO HS [facility] Last Admin: 05/25/18 21:42 Dose: 40 mg Budesonide/Formoterol Fumarate (Symbicort 160/4.5mcg -) 2 puff IH BID [facility] Last Admin: 05/26/18 10:07 Dose: 2 puff Dabigatran (Pradaxa -) 150 mg PO BID [facility] Last Admin: 05/26/18 10:07 Dose: 150 mg Digoxin (Lanoxin -) 0.25 mg PO DAILY [facility] Furosemide (Lasix Injection -) 120 mg IVPUSH BID@0600,1400 [facility] Guaifenesin (Robitussin -) 10 ml PO Q6H PRN PRN Reason: COUGH Last Admin: 05/24/18 17:09 Dose: 10 ml Guaifenesin/Codeine Phosphate (Robitussin Ac -) 5 ml PO TID PRN PRN Reason: COUGH Last Admin: 05/26/18 10:19 Dose: 5 ml Insulin Aspart (Novolog Vial Sliding Scale -) 1 vial SQ ACHS [facility]; Protocol Last Admin: 05/26/18 12:19 Dose: 2 units Ipratropium [place] (Atrovent 0.02% Nebulizer -) 1 amp NEB RQID [facility] Last Admin: 05/26/18 11:11 Dose: 1 amp Methylprednisolone Sodium Succinate (Solu-Medrol -) 40 mg IVPB BID [facility] Metoprolol Succinate (Toprol Xl -) 25 mg PO DAILY [facility] Last Admin: 05/26/18 10:07 Dose: 25 mg Montelukast Sodium (Singulair -) 10 mg PO HS [facility] Last Admin: 05/25/18 21:42 Dose: 10 mg Potassium Chloride (K-Dur -) 20 meq PO DAILY [facility] Last Admin: 05/26/18 10:06 Dose: 20 meq Ranitidine HCl (Zantac -) 150 mg PO DAILY [facility] Last Admin: 05/26/18 10:07 Dose: 150 mg Trazodone HCl (Desyrel -) 100 mg PO [facility] Last Admin: 05/25/18 21:42 Dose: 100 mg - Objective Vital Signs: Vital Signs Temperature 98.2 F 05/26/18 14:10 Pulse Rate 88 05/26/18 14:10 Respiratory Rate 18 05/26/18 14:10 Blood Pressure 116/87 05/26/18 14:10 O2 Sat by Pulse Oximetry (%) 99 05/26/18 09:00 General: Well developed. Obese. No acute distress. Head: Normocephalic. Atraumatic, Eyes: PERRLA, EOMI. Sclerae anicteric. Conjunctivae clear. Neck: Supple. (+) JVD. No bruits. Heart: Normal S1, S2: Irregularly irregular rhythm and rate. II/ HSM. No gallop or rub. Lungs: Symmetrical air entry. Bilateral crackle. No wheezing or rhonchi. Abdomen: Soft. Bowel sound positive. Non tender. No masses. Extremities: Bilateral venous stasis with 1-2+ edema. No clubbing or cyanosis. Labs: CBC, BMP 05/24/18 06:00 05/25/18 05:30 INR, PTT INR 1.17 (0.82-1.09) H 05/22/18 13:05 Assessment/Plan 63 year-old man with a PMHx of chronic Afib and chronic systolic CHF secondary to non-ischemic cardiomyopathy with cardiac cath in 2006 and 2015 both showing moderate LV dysfunction and patent coronary arteries. Admitted with cough and dyspnea with evidence of acute on chronic systolic heart failure and rapid atrial fibrillation. Echocardiogram 05/23/2018 showed mild LV dilatation with severe LV systolic dysfunction and restrictive physiology. Normal RV. Mild LA dilatation. Moderate MR. 1) Acute on chronic systolic CHF still with significantly volume overloaded. Increase IV Lasix 120 mg bid. Monitor weight and I/O. Monitor renal function and eletrolytes. 2) Persistent atrial fibrillation with controlled ventricular response. Discontinue Diltiazem. Start Digoxin 0.25 mg daily for 4-5 days and decrease it to 0.125 mg daily. Increase Metoprolol XL to 50 mg daily. Continue Pradaxa 150 mg BID for stroke prevention.
[2018-05-26] MEDS ORDERED: PT OWN MED DRAWER 7, Y5N ONE (16:40)
[2018-05-26] MEDS: DIGOXIN 0.25 MG TABLET (FP) PO SCH (16:55)
[2018-05-26] MEDS ORDERED: traZODone HCL 50 MG TABLET (FP) ONE (21:19)
[2018-05-26] MEDS: ATORVASTATIN CA 40 MG TABLET (FP) PO SCH (21:53)
[2018-05-26] MEDS: traZODone HCL 100 MG TABLET (FP) PO SCH (21:54)
[2018-05-26] MEDS: MONTELUKAST NA 10 MG TABLET PO SCH (21:54)
[2018-05-26] MEDS ORDERED: methylPREDNISolone NA SUCC 40 MG/1 ML VIAL IVPB SCH (22:00)
[2018-05-27] MEDS: guaiFENesin/CODEINE 5 ML UNIT-DOSE CUPS PO PRN (00:04)
[2018-05-27] MEDS: FUROSEMIDE 40 MG/4 ML INJECTABLE VIAL IVPUSH SCH ×2 (06:32→15:50)
[2018-05-27] MEDS: INSULIN SLIDING SCALE (NOVOLOG) 1 VIAL SQ SCH ×4 (06:34→22:07)
[2018-05-27] MEDS ORDERED: INSULIN (NOVOLOG) ASPART 100 UNITS/ML 10ML VIAL ONE (06:51)
[2018-05-27] MEDS: IPRATROPIUM BR 0.02% 0.5 MG/2.5 ML VIAL.NEB. NEB SCH (07:25)
--- NOTE | 2018-05-27 10:00 | PN ---
Progress Note, Physician - Current Medication List Current Medications: Active Medications Albuterol/Ipratropium (Duoneb -) 1 amp NEB RQID [facility] Atorvastatin Calcium (Lipitor -) 40 mg PO HS [facility] Last Admin: 05/26/18 21:53 Dose: 40 mg Budesonide/Formoterol Fumarate (Symbicort 160/4.5mcg -) 2 puff IH BID [facility] Last Admin: 05/26/18 21:52 Dose: 2 puff Dabigatran (Pradaxa -) 150 mg PO BID [facility] Last Admin: 05/26/18 21:53 Dose: 150 mg Digoxin (Lanoxin -) 0.25 mg PO DAILY [facility] Last Admin: 05/26/18 16:55 Dose: 0.25 mg Furosemide (Lasix Injection -) 120 mg IVPUSH BID@0600,1400 [facility] Last Admin: 05/27/18 06:32 Dose: 120 mg Guaifenesin (Robitussin -) 10 ml PO Q6H PRN PRN Reason: COUGH Last Admin: 05/24/18 17:09 Dose: 10 ml Guaifenesin/Codeine Phosphate (Robitussin Ac -) 5 ml PO TID PRN PRN Reason: COUGH Last Admin: 05/27/18 00:04 Dose: 5 ml Insulin Aspart (Novolog Vial Sliding Scale -) 1 vial SQ [facility]; Protocol Last Admin: 05/27/18 06:34 Dose: 3 units Ipratropium [place] (Atrovent 0.02% Nebulizer -) 1 amp NEB RQID [facility] Last Admin: 05/27/18 07:25 Dose: 1 amp Methylprednisolone Sodium Succinate (Solu-Medrol -) 40 mg IVPB Q6H-IV [facility] Metoprolol Succinate (Toprol Xl -) 50 mg PO DAILY [facility] Montelukast Sodium (Singulair -) 10 mg PO HS [facility] Last Admin: 05/26/18 21:54 Dose: 10 mg Potassium Chloride (K-Dur -) 20 meq PO DAILY [facility] Last Admin: 05/26/18 10:06 Dose: 20 meq Ranitidine HCl (Zantac -) 150 mg PO DAILY [facility] Last Admin: 05/26/18 10:07 Dose: 150 mg Trazodone HCl (Desyrel -) 100 mg PO HS [facility] Last Admin: 05/26/18 21:54 Dose: 100 mg - Objective Vital Signs: Vital Signs Temperature 97.5 F L 05/27/18 06:00 Pulse Rate 89 05/27/18 09:13 Respiratory Rate 22 05/27/18 09:13 Blood Pressure 146/89 05/27/18 09:13 O2 Sat by Pulse Oximetry (%) 96 05/27/18 08:57 Cardiovascular: Yes: S1, S2 Respiratory: Yes: Diminished, Rhonchi, Wheezes Gastrointestinal: Yes: Normal Bowel Sounds, Soft Edema: Yes Labs: CBC, BMP 05/24/18 06:00 05/25/18 05:30 INR, PTT INR 1.17 (0.82-1.09) H 05/22/18 13:05 Assessment/Plan - Problems (1) Shortness of breath Assessment/Plan: copd exacerbatin with/ vascular congestion- acute on chronic systolic heart failure iv lasix now 80mg bid trend bnp- now trending down bronchodilators pulm consult noted oxygen via nasal canula CT chest to evaluate the lung nodules as seen on previous ct scan- resolution of previous seen nodules dvt ppx sputum culture iv steroids now taper to bid inc LFT most likley secondary to hepatic congestion and now down trending Code(s): R06.02 - SHORTNESS OF BREATH (2) Atrial fibrillation Assessment/Plan: telemetry on pradaxa iv cardizem drip- stop and start po cardizem echo cardiac monitoring cardiology on board Code(s): I48.91 - UNSPECIFIED ATRIAL FIBRILLATION Qualifiers: Atrial fibrillation type: persistent Qualified Code(s): I48.1 - Persistent atrial fibrillation (3) COPD (chronic obstructive pulmonary disease) Assessment/Plan: iv steroids oxygen bronchodilators Code(s): J44.9 - CHRONIC OBSTRUCTIVE PULMONARY DISEASE, UNSPECIFIED (4) Hypercholesterolemia Assessment/Plan: lipid panel statin Code(s): E78.0 - PURE HYPERCHOLESTEROLEMIA * DO NOT USE * (5) Diabetes Assessment/Plan: bgm sliding scale hgb1c 5.6 Code(s): E11.9 - TYPE 2 DIABETES MELLITUS WITHOUT COMPLICATIONS Qualifiers: Diabetes mellitus type: type 2 Diabetes mellitus skilled nursing insulin use: without chemical analyst use Diabetes mellitus complication status: without complication Qualified Code(s): E11.9 - Type 2 diabetes mellitus without complications (6) Electrolyte abnormality Assessment/Plan: repleted potassium and magnesium - improved Code(s): E87.8 - OTH DISORDERS OF ELECTROLYTE AND FLUID BALANCE, NEC
--- NOTE | 2018-05-27 10:06 | PN ---
Progress Note, Physician - Current Medication List Current Medications: Active Medications Albuterol/Ipratropium (Duoneb -) 1 amp NEB RQID [facility] Atorvastatin Calcium (Lipitor -) 40 mg PO HS [facility] Last Admin: 05/26/18 21:53 Dose: 40 mg Budesonide/Formoterol Fumarate (Symbicort 160/4.5mcg -) 2 puff IH BID [facility] Last Admin: 05/26/18 21:52 Dose: 2 puff Dabigatran (Pradaxa -) 150 mg PO BID [facility] Last Admin: 05/26/18 21:53 Dose: 150 mg Digoxin (Lanoxin -) 0.25 mg PO DAILY [facility] Last Admin: 05/26/18 16:55 Dose: 0.25 mg Furosemide (Lasix Injection -) 120 mg IVPUSH BID@0600,1400 [facility] Last Admin: 05/27/18 06:32 Dose: 120 mg Guaifenesin (Robitussin -) 10 ml PO Q6H PRN PRN Reason: COUGH Last Admin: 05/24/18 17:09 Dose: 10 ml Guaifenesin/Codeine Phosphate (Robitussin Ac -) 5 ml PO TID PRN PRN Reason: COUGH Last Admin: 05/27/18 00:04 Dose: 5 ml Insulin Aspart (Novolog Vial Sliding Scale -) 1 vial SQ [facility]; Protocol Last Admin: 05/27/18 06:34 Dose: 3 units Ipratropium [place] (Atrovent 0.02% Nebulizer -) 1 amp NEB RQID [facility] Last Admin: 05/27/18 07:25 Dose: 1 amp Methylprednisolone Sodium Succinate (Solu-Medrol -) 40 mg IVPB Q6H-IV [facility] Metoprolol Succinate (Toprol Xl -) 50 mg PO DAILY [facility] Montelukast Sodium (Singulair -) 10 mg PO HS [facility] Last Admin: 05/26/18 21:54 Dose: 10 mg Potassium Chloride (K-Dur -) 20 meq PO DAILY [facility] Last Admin: 05/26/18 10:06 Dose: 20 meq Ranitidine HCl (Zantac -) 150 mg PO DAILY [facility] Last Admin: 05/26/18 10:07 Dose: 150 mg Trazodone HCl (Desyrel -) 100 mg PO HS [facility] Last Admin: 05/26/18 21:54 Dose: 100 mg - Objective Vital Signs: Vital Signs Temperature 97.5 F L 05/27/18 06:00 Pulse Rate 89 05/27/18 09:13 Respiratory Rate 22 05/27/18 09:13 Blood Pressure 146/89 05/27/18 09:13 O2 Sat by Pulse Oximetry (%) 96 05/27/18 08:57 Labs: CBC, BMP 05/24/18 06:00 05/25/18 05:30 INR, PTT INR 1.17 (0.82-1.09) H 05/22/18 13:05 Assessment/Plan 63 year-old man with a PMHx of chronic Afib and chronic systolic CHF secondary to non-ischemic cardiomyopathy with cardiac cath in 2006 and 2015 both showing moderate LV dysfunction and patent coronary arteries. Admitted with cough and dyspnea with evidence of acute on chronic systolic heart failure and rapid atrial fibrillation. Echocardiogram 05/23/2018 showed mild LV dilatation with severe LV systolic dysfunction and restrictive physiology. Normal RV. Mild LA dilatation. Moderate MR. 1) Cough/SOB-multifactorial due to AE COPD and Acute on chronic systolic CHF Lasix was Increased to 120 mg IV bid yesterday, pt reports a urinating more often and more quantity. -Should have blood work to monitor bun/creat, electrolytes and replete as needed -presume cough is largely in part due to COPD as well, pulmonary following, pt is on bronchodilators and steroids. -Monitor weight and I/O. 2) Persistent atrial fibrillation with controlled ventricular response. Diltiazem stopped yesterday Start Digoxin 0.25 mg daily for 4 days then decrease it to 0.125 mg daily on Cont Metoprolol XL 50 mg daily. Continue Pradaxa 150 mg BID for thromboembolic prevention.
--- NOTE | 2018-05-27 10:21 | PN ---
Progress Note, Physician History of Present Illness: pulmonary alert,still dyspneic,+ cough,-cp. wt 225.12 - Current Medication List Current Medications: Active Medications Albuterol/Ipratropium (Duoneb -) 1 amp NEB RQID [facility] Atorvastatin Calcium (Lipitor -) 40 mg PO HS [facility] Last Admin: 05/26/18 21:53 Dose: 40 mg Budesonide/Formoterol Fumarate (Symbicort 160/4.5mcg -) 2 puff IH BID [facility] Last Admin: 05/26/18 21:52 Dose: 2 puff Dabigatran (Pradaxa -) 150 mg PO BID [facility] Last Admin: 05/26/18 21:53 Dose: 150 mg Digoxin (Lanoxin -) 0.25 mg PO DAILY [facility] Last Admin: 05/26/18 16:55 Dose: 0.25 mg Furosemide (Lasix Injection -) 120 mg IVPUSH BID@0600,1400 [facility] Last Admin: 05/27/18 06:32 Dose: 120 mg Guaifenesin (Robitussin -) 10 ml PO Q6H PRN PRN Reason: COUGH Last Admin: 05/24/18 17:09 Dose: 10 ml Guaifenesin/Codeine Phosphate (Robitussin Ac -) 5 ml PO TID PRN PRN Reason: COUGH Last Admin: 05/27/18 00:04 Dose: 5 ml Insulin Aspart (Novolog Vial Sliding Scale -) 1 vial SQ [facility]; Protocol Last Admin: 05/27/18 06:34 Dose: 3 units Ipratropium [place] (Atrovent 0.02% Nebulizer -) 1 amp NEB RQID [facility] Last Admin: 05/27/18 07:25 Dose: 1 amp Methylprednisolone Sodium Succinate (Solu-Medrol -) 40 mg IVPB Q6H-IV [facility] Metoprolol Succinate (Toprol Xl -) 50 mg PO DAILY [facility] Montelukast Sodium (Singulair -) 10 mg PO HS [facility] Last Admin: 05/26/18 21:54 Dose: 10 mg Potassium Chloride (K-Dur -) 20 meq PO DAILY [facility] Last Admin: 05/26/18 10:06 Dose: 20 meq Ranitidine HCl (Zantac -) 150 mg PO DAILY [facility] Last Admin: 05/26/18 10:07 Dose: 150 mg Trazodone HCl (Desyrel -) 100 mg PO HS [facility] Last Admin: 05/26/18 21:54 Dose: 100 mg - Objective Vital Signs: Vital Signs Temperature 97.5 F L 05/27/18 06:00 Pulse Rate 89 05/27/18 09:13 Respiratory Rate 22 05/27/18 09:13 Blood Pressure 146/89 05/27/18 09:13 O2 Sat by Pulse Oximetry (%) 96 05/27/18 08:57 Constitutional: Yes: Well Nourished, Calm Eyes: Yes: WNL HENT: Yes: WNL Neck: Yes: WNL Cardiovascular: Yes: Pulse Irregular, S1, S2 Respiratory: Yes: Rales, Rhonchi, Other (rosalva rhonchi and rales) Gastrointestinal: Yes: Normal Bowel Sounds, Soft Extremities: Yes: WNL Edema: Yes Labs: CBC, BMP 05/24/18 06:00 05/25/18 05:30 INR, PTT INR 1.17 (0.82-1.09) H 05/22/18 13:05 Assessment/Plan (1) CHF exacerbation Code(s): I50.9 - HEART FAILURE, UNSPECIFIED Qualifiers: Heart failure type: unspecified Qualified Code(s): I50.9 - Heart failure, unspecified (2) Shortness of breath Code(s): R06.02 - SHORTNESS OF BREATH (3) Atrial fibrillation Code(s): I48.91 - UNSPECIFIED ATRIAL FIBRILLATION Qualifiers: Atrial fibrillation type: persistent Qualified Code(s): I48.1 - Persistent atrial fibrillation (4) CAD (coronary artery disease) Code(s): I25.10 - ATHSCL HEART DISEASE OF [place] CORONARY ARTERY W/O ANG PCTRS Qualifiers: Coronary Disease-Associated Artery/Lesion type: [place] artery [place] vs. transplanted heart: [place] heart Associated angina: without angina Qualified Code(s): I25.10 - Atherosclerotic heart disease of [place] coronary artery without angina pectoris (5) CHF (congestive heart failure) Code(s): I50.9 - HEART FAILURE, UNSPECIFIED Qualifiers: Heart failure type: unspecified Heart failure chronicity: acute on chronic Qualified Code(s): I50.9 - Heart failure, unspecified (6) COPD (chronic obstructive pulmonary disease) Code(s): J44.9 - CHRONIC OBSTRUCTIVE PULMONARY DISEASE, UNSPECIFIED (7) COPD with acute exacerbation Code(s): J44.1 - CHRONIC OBSTRUCTIVE PULMONARY DISEASE W (ACUTE) EXACERBATION Assessment/Plan BRONCHODILATORS STEROID TAPER O2 LASIX MONITOR WEIGHT/ELECTROLYTES ANTICOAGULATION RATE CONTROL GLYCEMIC CONTROL MONITOR LYTES DAILY WT DR TEJEDA Problem List - Problems (1) CHF exacerbation Code(s): I50.9 - HEART FAILURE, UNSPECIFIED Qualifiers: Heart failure type: unspecified Qualified Code(s): I50.9 - Heart failure, unspecified (2) Shortness of breath Code(s): R06.02 - SHORTNESS OF BREATH (3) Atrial fibrillation Code(s): I48.91 - UNSPECIFIED ATRIAL FIBRILLATION Qualifiers: Atrial fibrillation type: persistent Qualified Code(s): I48.1 - Persistent atrial fibrillation (4) CAD (coronary artery disease) Code(s): I25.10 - ATHSCL HEART DISEASE OF [place] CORONARY ARTERY W/O ANG PCTRS Qualifiers: Coronary Disease-Associated Artery/Lesion type: [place] artery [place] vs. transplanted heart: [place] heart Associated angina: without angina Qualified Code(s): I25.10 - Atherosclerotic heart disease of [place] coronary artery without angina pectoris (5) CHF (congestive heart failure) Code(s): I50.9 - HEART FAILURE, UNSPECIFIED Qualifiers: Heart failure type: unspecified Heart failure chronicity: acute on chronic Qualified Code(s): I50.9 - Heart failure, unspecified (6) COPD (chronic obstructive pulmonary disease) Code(s): J44.9 - CHRONIC OBSTRUCTIVE PULMONARY DISEASE, UNSPECIFIED (7) COPD with acute exacerbation Code(s): J44.1 - CHRONIC OBSTRUCTIVE PULMONARY DISEASE W (ACUTE) EXACERBATION
[2018-05-27] MEDS: methylPREDNISolone NA SUCC 40 MG/1 ML VIAL IVPB SCH ×3 (11:01→21:55)
[2018-05-27] MEDS: DABIGATRAN ETEXILATE MESYLATE 150 MG CAPSULE PO SCH ×2 (11:02→21:55)
[2018-05-27] MEDS: DIGOXIN 0.25 MG TABLET (FP) PO SCH (11:02)
[2018-05-27] MEDS: RANITIDINE HCL 150 MG TABLET (FP) PO SCH (11:02)
[2018-05-27] MEDS: POTASSIUM CHLORIDE TABS 20 MEQ TABLET.ER (FP) PO SCH (11:02)
--- NOTE | 2018-05-27 11:13 | PN ---
Progress Note, Physician History of Present Illness: seen and examined today in nad. c/o persistent cough, no other new complaints. - Current Medication List Current Medications: Active Medications Albuterol/Ipratropium (Duoneb -) 1 amp NEB RQID [facility] Atorvastatin Calcium (Lipitor -) 40 mg PO HS [facility] Last Admin: 05/26/18 21:53 Dose: 40 mg Dabigatran (Pradaxa -) 150 mg PO BID [facility] Last Admin: 05/27/18 11:02 Dose: 150 mg Digoxin (Lanoxin -) 0.25 mg PO DAILY [facility] Last Admin: 05/27/18 11:02 Dose: 0.25 mg Furosemide (Lasix Injection -) 120 mg IVPUSH BID@0600,1400 [facility] Last Admin: 05/27/18 06:32 Dose: 120 mg Guaifenesin (Robitussin -) 10 ml PO Q6H PRN PRN Reason: COUGH Last Admin: 05/24/18 17:09 Dose: 10 ml Guaifenesin/Codeine Phosphate (Robitussin Ac -) 5 ml PO TID PRN PRN Reason: COUGH Last Admin: 05/27/18 00:04 Dose: 5 ml Insulin Aspart (Novolog Vial Sliding Scale -) 1 vial SQ [facility]; Protocol Last Admin: 05/27/18 06:34 Dose: 3 units Methylprednisolone Sodium Succinate (Solu-Medrol -) 40 mg IVPB Q6H-IV [facility] Last Admin: 05/27/18 11:01 Dose: 40 mg Metoprolol Succinate (Toprol Xl -) 50 mg PO DAILY [facility] Last Admin: 05/27/18 11:02 Dose: 50 mg Montelukast Sodium (Singulair -) 10 mg PO [facility] Last Admin: 05/26/18 21:54 Dose: 10 mg Potassium Chloride (K-Dur -) 20 meq PO DAILY [facility] Last Admin: 05/27/18 11:02 Dose: 20 meq Ranitidine HCl (Zantac -) 150 mg PO DAILY [facility] Last Admin: 05/27/18 11:02 Dose: 150 mg Trazodone HCl (Desyrel -) 100 mg PO HS [facility] Last Admin: 05/26/18 21:54 Dose: 100 mg - Objective Vital Signs: Vital Signs Temperature 97.5 F L 05/27/18 06:00 Pulse Rate 68 05/27/18 11:02 Respiratory Rate 22 05/27/18 09:13 Blood Pressure 146/89 05/27/18 09:13 O2 Sat by Pulse Oximetry (%) 96 05/27/18 08:57 Constitutional: Yes: No Distress, Calm Eyes: Yes: Conjunctiva Clear, EOM Intact HENT: Yes: Atraumatic, Normocephalic Neck: Yes: Supple, Trachea Midline Cardiovascular: Yes: Regular Rate and Rhythm, Pulse Irregular, S1, S2. No: Bradycardia, Tachycardia, Bruit, JVD, Gallop, Murmur, Rub, S3, S4, Varicosities Respiratory: Yes: Regular, Cough, Diminished, Rhonchi, Wheezes. No: Rales, SOB Gastrointestinal: Yes: Normal Bowel Sounds, Soft. No: Distention, Tenderness Extremities: Yes: WNL Edema: Yes Edema: LLE: 1+, RLE: 1+ Peripheral Pulses WNL: Yes Peripheral Pulses: Left Doralis Pedis: 2+, Right Dorsalis Pedis: 2+ Neurological: Yes: Alert, Oriented Psychiatric: Yes: Alert, Oriented Labs: CBC, BMP 05/24/18 06:00 05/25/18 05:30 INR, PTT INR 1.17 (0.82-1.09) H 05/22/18 13:05 - ....Imaging Chest X-ray: Report Reviewed, Image Reviewed EKG: Report Reviewed, Image Reviewed Other: Report Reviewed, Image Reviewed (tele-AF, HR controlled, PVCs) Assessment/Plan 63 year-old man with a PMHx of chronic Afib and chronic systolic CHF secondary to non-ischemic cardiomyopathy with cardiac cath in 2006 and 2015 both showing moderate LV dysfunction and patent coronary arteries. Admitted with cough and dyspnea with evidence of acute on chronic systolic heart failure and rapid atrial fibrillation. Echocardiogram 05/23/2018 showed mild LV dilatation with severe LV systolic dysfunction and restrictive physiology. Normal RV. Mild LA dilatation. Moderate MR. 1) Cough/SOB-multifactorial due to AE COPD and Acute on chronic systolic CHF Lasix was Increased to 120 mg IV bid yesterday, pt reports a urinating more often and more quantity. -Should have blood work to monitor bun/creat, electrolytes and replete as needed -presume cough is largely in part due to COPD as well, pulmonary following, pt is on bronchodilators and steroids. -Monitor weight and I/O. 2) Persistent atrial fibrillation with controlled ventricular response. Diltiazem stopped yesterday Start Digoxin 0.25 mg daily for 4 days then decrease it to 0.125 mg daily on Cont Metoprolol XL 50 mg daily. Continue Pradaxa 150 mg BID for thromboembolic prevention.
[2018-05-27 11:24] LABS: BASO % 0.2 % (0-2.0); EOS % 0.1 % (0-4.5); HEMATOCRIT 39.2 % (35.4-49); LYMPH % 5.8 % (8-40); MCH 28.9 pg (25.7-33.7); MCHC 33.1 g/dl (32.0-35.9); MEAN CELL VOLUME 87.1 fl (80-96); MEAN PLT VOLUME 9.5 fl (7.5-11.1); MONO % 8.9 % (3.8-10.2); PLATELET COUNT 197 K/MM3 (134-434); RBC 4.49 M/mm3 (4.00-5.60); RDW 17.6 % (11.9-15.9); WHITE BLOOD COUNT 9.5 K/mm3 (4.0-10.0)
[2018-05-27] MEDS: ALBUTEROL SO4 2.5/IPRATROPIUM 0.5 INH SOL 3 ML VIAL.NEB. NEB SCH ×3 (11:38→19:18)
[2018-05-27 11:50] LABS: ANION GAP 6 (8-16); BLOOD UREA NITROGEN 37 mg/dL (7-18); CALCIUM 8.3 mg/dL (8.5-10.1); CHLORIDE 93 mmol/L (98-107); CO2 35 mmol/L (21-32); CREATININE 0.8 mg/dL (0.7-1.3); GLUCOSE,RANDOM 221 mg/dL (74-106); POTASSIUM 3.9 mmol/L (3.5-5.1); SODIUM 134 mmol/L (136-145)
[2018-05-27 12:04] LABS: PLATELET ESTIMATE NORMAL
--- NOTE | 2018-05-27 14:58 | PN ---
Progress Note, Physician History of Present Illness: Pt seen and examined at bedside. He is awake and alert. He still complains of lower ext edema. - Current Medication List Current Medications: Active Medications Albuterol/Ipratropium (Duoneb -) 1 amp NEB RQID [facility] Last Admin: 05/27/18 11:38 Dose: 1 amp Atorvastatin [place]cium (Lipitor -) 40 mg PO HS [facility] Last Admin: 05/26/18 21:53 Dose: 40 mg Dabigatran (Pradaxa -) 150 mg PO BID [facility] Last Admin: 05/27/18 11:02 Dose: 150 mg Digoxin (Lanoxin -) 0.25 mg PO DAILY [facility] Last Admin: 05/27/18 11:02 Dose: 0.25 mg Furosemide (Lasix Injection -) 120 mg IVPUSH BID@0600,1400 [facility] Last Admin: 05/27/18 06:32 Dose: 120 mg Guaifenesin (Robitussin -) 10 ml PO Q6H PRN PRN Reason: COUGH Last Admin: 05/24/18 17:09 Dose: 10 ml Guaifenesin/Codeine Phosphate (Robitussin Ac -) 5 ml PO TID PRN PRN Reason: COUGH Last Admin: 05/27/18 00:04 Dose: 5 ml Insulin Aspart (Novolog Vial Sliding Scale -) 1 vial SQ [facility]; Protocol Last Admin: 05/27/18 13:40 Dose: 2 units Methylprednisolone Sodium Succinate (Solu-Medrol -) 40 mg IVPB Q6H-IV [facility] Last Admin: 05/27/18 11:01 Dose: 40 mg Metoprolol Succinate (Toprol Xl -) 50 mg PO DAILY [facility] Last Admin: 05/27/18 11:02 Dose: 50 mg Montelukast Sodium (Singulair -) 10 mg PO [facility] Last Admin: 05/26/18 21:54 Dose: 10 mg Potassium Chloride (K-Dur -) 20 meq PO DAILY [facility] Last Admin: 05/27/18 11:02 Dose: 20 meq Ranitidine HCl (Zantac -) 150 mg PO DAILY [facility] Last Admin: 05/27/18 11:02 Dose: 150 mg Trazodone HCl (Desyrel -) 100 mg PO HS [facility] Last Admin: 05/26/18 21:54 Dose: 100 mg - Objective Vital Signs: Vital Signs Temperature 97.5 F L 05/27/18 06:00 Pulse Rate 68 05/27/18 11:02 Respiratory Rate 22 05/27/18 09:13 Blood Pressure 146/89 05/27/18 09:13 O2 Sat by Pulse Oximetry (%) 96 05/27/18 08:57 Constitutional: Yes: Calm, Poor Hygeine HENT: Yes: Atraumatic Cardiovascular: Yes: S1, S2 Respiratory: Yes: On Nasal O2, Rhonchi, SOB on Exertion Gastrointestinal: Yes: Soft, Abdomen, Obese Genitourinary: Yes: WNL Musculoskeletal: Yes: WNL Edema: Yes Edema: LLE: 2+, RLE: 2+ Neurological: Yes: Oriented Psychiatric: Yes: Oriented Labs: CBC, BMP 05/27/18 11:00 05/27/18 11:00 INR, PTT INR 1.17 (0.82-1.09) H 05/22/18 13:05 Problem List - Problems (1) Hypokalemia Code(s): E87.6 - HYPOKALEMIA (2) Diabetes Code(s): E11.9 - TYPE 2 DIABETES MELLITUS WITHOUT COMPLICATIONS Qualifiers: Diabetes mellitus type: type 2 Diabetes mellitus intermediate insulin use: without terminal operations supervisor use Diabetes mellitus complication status: without complication Qualified Code(s): E11.9 - Type 2 diabetes mellitus without complications (3) Hypertension Code(s): I10 - ESSENTIAL (PRIMARY) HYPERTENSION Qualifiers: Hypertension type: essential hypertension Qualified Code(s): I10 - Essential (primary) hypertension Assessment/Plan Current Medications Generic Name Dose Route Start Last Admin Trade Name Freq PRN Reason Stop Dose Admin Albuterol/Ipratropium 1 amp 05/27/18 12:00 05/27/18 11:38 Duoneb - NEB 1 amp RQID [facility] Administration Atorvastatin Calcium 40 mg 05/22/18 22:00 05/26/18 21:53 Lipitor - PO 40 mg HS [facility] Administration Dabigatran 150 mg 05/22/18 22:00 05/27/18 11:02 Pradaxa - PO 150 mg BID [facility] Administration Digoxin 0.25 mg 05/26/18 15:45 05/27/18 11:02 Lanoxin - PO 0.25 mg DAILY [facility] Administration Furosemide 120 mg 05/26/18 15:37 05/27/18 06:32 Lasix Injection - IVPUSH 120 mg BID@0600,1400 [facility] Administration Guaifenesin 10 ml 05/22/18 23:36 05/24/18 17:09 Robitussin - PO 10 ml Q6H PRN Administration COUGH Guaifenesin/Codeine Phosphate 5 ml 05/25/18 10:52 05/27/18 00:04 Robitussin Ac - PO 5 ml TID PRN Administration COUGH Insulin Aspart 1 vial 05/22/18 16:30 05/27/18 13:40 Novolog Vial Sliding Scale - SQ 2 units ACHS [facility] Administration Protocol Methylprednisolone Sodium Succinate 40 mg 05/27/18 09:00 05/27/18 11:01 Solu-Medrol - IVPB 40 mg Q6H-IV [facility] Administration Metoprolol Succinate 50 mg 05/27/18 10:00 05/27/18 11:02 Toprol Xl - PO 50 mg DAILY [facility] Administration Montelukast Sodium 10 mg 05/22/18 22:00 05/26/18 21:54 Singulair - PO 10 mg HS [facility] Administration Potassium Chloride 20 meq 05/22/18 15:45 05/27/18 11:02 K-Dur - PO 20 meq DAILY [facility] Administration Ranitidine HCl 150 mg 05/23/18 10:00 05/27/18 11:02 Zantac - PO 150 mg DAILY [facility] Administration Trazodone HCl 100 mg 05/22/18 22:00 05/26/18 21:54 Desyrel - PO 100 mg HS [facility] Administration Impression 1. CHF 2. hypokalemia 3. hypomagnesemia 4. asthma 5. a-fib 6. DM Plan - monitor lytes daily - monitor bicarb - steroids with taper per pulm - will follow - repeat mag level in am
--- NOTE | 2018-05-27 15:08 | PN ---
Progress Note, Physician History of Present Illness: still with cough no overnight events - Current Medication List Current Medications: Active Medications Albuterol/Ipratropium (Duoneb -) 1 amp NEB RQID [facility] Last Admin: 05/27/18 11:38 Dose: 1 amp Atorvastatin Calcium (Lipitor -) 40 mg PO HS [facility] Last Admin: 05/26/18 21:53 Dose: 40 mg Dabigatran (Pradaxa -) 150 mg PO BID [facility] Last Admin: 05/27/18 11:02 Dose: 150 mg Digoxin (Lanoxin -) 0.25 mg PO DAILY [facility] Last Admin: 05/27/18 11:02 Dose: 0.25 mg Furosemide (Lasix Injection -) 120 mg IVPUSH BID@0600,1400 [facility] Last Admin: 05/27/18 06:32 Dose: 120 mg Guaifenesin (Robitussin -) 10 ml PO Q6H PRN PRN Reason: COUGH Last Admin: 05/24/18 17:09 Dose: 10 ml Guaifenesin/Codeine Phosphate (Robitussin Ac -) 5 ml PO TID PRN PRN Reason: COUGH Last Admin: 05/27/18 00:04 Dose: 5 ml Insulin Aspart (Novolog Vial Sliding Scale -) 1 vial SQ [facility]; Protocol Last Admin: 05/27/18 13:40 Dose: 2 units Methylprednisolone Sodium Succinate (Solu-Medrol -) 40 mg IVPB Q6H-IV [facility] Last Admin: 05/27/18 11:01 Dose: 40 mg Metoprolol Succinate (Toprol Xl -) 50 mg PO DAILY [facility] Last Admin: 05/27/18 11:02 Dose: 50 mg Montelukast Sodium (Singulair -) 10 mg PO [facility] Last Admin: 05/26/18 21:54 Dose: 10 mg Potassium Chloride (K-Dur -) 20 meq PO DAILY [facility] Last Admin: 05/27/18 11:02 Dose: 20 meq Ranitidine HCl (Zantac -) 150 mg PO DAILY [facility] Last Admin: 05/27/18 11:02 Dose: 150 mg Trazodone HCl (Desyrel -) 100 mg PO [facility] Last Admin: 05/26/18 21:54 Dose: 100 mg - Objective Vital Signs: Vital Signs Temperature 97.5 F L 05/27/18 06:00 Pulse Rate 68 05/27/18 11:02 Respiratory Rate 22 05/27/18 09:13 Blood Pressure 146/89 05/27/18 09:13 O2 Sat by Pulse Oximetry (%) 96 05/27/18 08:57 Constitutional: Yes: No Distress, Calm Cardiovascular: Yes: Regular Rate and Rhythm Respiratory: Yes: On Nasal O2, Poor Air Entry, Rhonchi Gastrointestinal: Yes: Normal Bowel Sounds, Soft Musculoskeletal: Yes: WNL Extremities: Yes: WNL Neurological: Yes: Alert, Oriented Psychiatric: Yes: Alert, Oriented Labs: CBC, BMP 05/27/18 11:00 05/27/18 11:00 INR, PTT INR 1.17 (0.82-1.09) H 05/22/18 13:05 Assessment/Plan Problem List - Problems (1) CHF exacerbation Code(s): I50.9 - HEART FAILURE, UNSPECIFIED Qualifiers: Heart failure type: unspecified Qualified Code(s): I50.9 - Heart failure, unspecified (2) Shortness of breath Code(s): R06.02 - SHORTNESS OF BREATH (3) Atrial fibrillation Code(s): I48.91 - UNSPECIFIED ATRIAL FIBRILLATION Qualifiers: Atrial fibrillation type: persistent Qualified Code(s): I48.1 - Persistent atrial fibrillation (4) CAD (coronary artery disease) Code(s): I25.10 - ATHSCL HEART DISEASE OF [place] CORONARY ARTERY W/O ANG PCTRS Qualifiers: Coronary Disease-Associated Artery/Lesion type: [place] artery [place] vs. transplanted heart: [place] heart Associated angina: without angina Qualified Code(s): I25.10 - Atherosclerotic heart disease of [place] coronary artery without angina pectoris (5) CHF (congestive heart failure) Code(s): I50.9 - HEART FAILURE, UNSPECIFIED Qualifiers: Heart failure type: unspecified Heart failure chronicity: acute on chronic Qualified Code(s): I50.9 - Heart failure, unspecified (6) COPD (chronic obstructive pulmonary disease) Code(s): J44.9 - CHRONIC OBSTRUCTIVE PULMONARY DISEASE, UNSPECIFIED (7) COPD with acute exacerbation Code(s): J44.1 - CHRONIC OBSTRUCTIVE PULMONARY DISEASE W (ACUTE) EXACERBATION plan will continue to watch the patient incentive douglas physio rest as per pul cardiology
[2018-05-27] MEDS: ATORVASTATIN CA 40 MG TABLET (FP) PO SCH (21:55)
[2018-05-27] MEDS: MONTELUKAST NA 10 MG TABLET PO SCH (21:55)
[2018-05-27] MEDS: traZODone HCL 100 MG TABLET (FP) PO SCH (21:56)
[2018-05-27] MEDS: guaiFENesin 200 MG/10 ML 10 ML UNIT-DOSE CUPS PO PRN (22:23)
[2018-05-28] MEDS: methylPREDNISolone NA SUCC 40 MG/1 ML VIAL IVPB SCH ×2 (03:34→19:38)
[2018-05-28] MEDS: INSULIN SLIDING SCALE (NOVOLOG) 1 VIAL SQ SCH ×4 (06:23→22:14)
[2018-05-28] MEDS: FUROSEMIDE 40 MG/4 ML INJECTABLE VIAL IVPUSH SCH ×3 (06:24→21:49)
[2018-05-28 07:00] LABS: CHLORIDE 90 mmol/L (98-107); POTASSIUM 4.1 mmol/L (3.5-5.1); SODIUM 134 mmol/L (136-145)
[2018-05-28 07:06] LABS: ANION GAP 5 (8-16); BLOOD UREA NITROGEN 39 mg/dL (7-18); CALCIUM 8.6 mg/dL (8.5-10.1); CO2 39 mmol/L (21-32); CREATININE 0.7 mg/dL (0.7-1.3); GLUCOSE,RANDOM 169 mg/dL (74-106); MAGNESIUM 1.6 mg/dL (1.8-2.4)
[2018-05-28] MEDS: ALBUTEROL SO4 2.5/IPRATROPIUM 0.5 INH SOL 3 ML VIAL.NEB. NEB SCH ×4 (08:47→20:01)
[2018-05-28] MEDS ORDERED: MAGNESIUM 2GM/50ML STERILE WATER IVPB IVPB ONE (10:08)
--- NOTE | 2018-05-28 10:37 | PN ---
Progress Note, Physician History of Present Illness: PULMONARY ALERT,LESS CONGESTED,LESS COUGH. WT [id number] - Current Medication List Current Medications: Active Medications Albuterol/Ipratropium (Duoneb -) 1 amp NEB RQID [facility] Last Admin: 05/28/18 08:47 Dose: 1 amp Atorvastatin Calcium (Lipitor -) 40 mg PO HS [facility] Last Admin: 05/27/18 21:55 Dose: 40 mg Dabigatran (Pradaxa -) 150 mg PO BID [facility] Last Admin: 05/27/18 21:55 Dose: 150 mg Digoxin (Lanoxin -) 0.25 mg PO DAILY [facility] Last Admin: 05/27/18 11:02 Dose: 0.25 mg Furosemide (Lasix Injection -) 120 mg IVPUSH BID@0600,1400 [facility] Last Admin: 05/28/18 06:24 Dose: 120 mg Guaifenesin (Robitussin -) 10 ml PO Q6H PRN PRN Reason: COUGH Last Admin: 05/27/18 22:23 Dose: 10 ml Guaifenesin/Codeine Phosphate (Robitussin Ac -) 5 ml PO TID PRN PRN Reason: COUGH Last Admin: 05/27/18 00:04 Dose: 5 ml Insulin Aspart (Novolog Vial Sliding Scale -) 1 vial SQ [facility]; Protocol Last Admin: 05/28/18 06:23 Dose: Not Given Methylprednisolone Sodium Succinate (Solu-Medrol -) 40 mg IVPB Q6H-IV [facility] Last Admin: 05/28/18 03:34 Dose: 40 mg Metoprolol Succinate (Toprol Xl -) 50 mg PO DAILY [facility] Last Admin: 05/27/18 11:02 Dose: 50 mg Montelukast Sodium (Singulair -) 10 mg PO [facility] Last Admin: 05/27/18 21:55 Dose: 10 mg Potassium Chloride (K-Dur -) 20 meq PO DAILY [facility] Last Admin: 05/27/18 11:02 Dose: 20 meq Ranitidine HCl (Zantac -) 150 mg PO DAILY [facility] Last Admin: 05/27/18 11:02 Dose: 150 mg Trazodone HCl (Desyrel -) 100 mg PO [facility] Last Admin: 05/27/18 21:56 Dose: 100 mg - Objective Vital Signs: Vital Signs Temperature 97.3 F L 05/28/18 06:00 Pulse Rate 84 05/28/18 08:53 Respiratory Rate 20 05/28/18 08:53 Blood Pressure 135/77 05/28/18 08:53 O2 Sat by Pulse Oximetry (%) 96 05/28/18 08:59 Constitutional: Yes: Well Nourished, Calm Eyes: Yes: WNL HENT: Yes: WNL Neck: Yes: WNL Cardiovascular: Yes: Pulse Irregular, S1, S2 Respiratory: Yes: Rhonchi (SCATTERED OLLIE RHONCHI) Gastrointestinal: Yes: Normal Bowel Sounds, Soft Extremities: Yes: WNL Edema: Yes Labs: CBC, BMP 0 05/28/18 05:30 - ....Imaging Chest X-ray: Report Reviewed, Image Reviewed (INCREASED CONGESTION OLLIE) Assessment/Plan (1) CHF exacerbation Code(s): I50.9 - HEART FAILURE, UNSPECIFIED Qualifiers: Heart failure type: unspecified Qualified Code(s): I50.9 - Heart failure, unspecified (2) Shortness of breath Code(s): R06.02 - SHORTNESS OF BREATH (3) Atrial fibrillation Code(s): I48.91 - UNSPECIFIED ATRIAL FIBRILLATION Qualifiers: Atrial fibrillation type: persistent Qualified Code(s): I48.1 - Persistent atrial fibrillation (4) CAD (coronary artery disease) Code(s): I25.10 - ATHSCL HEART DISEASE OF [place] CORONARY ARTERY W/O ANG PCTRS Qualifiers: Coronary Disease-Associated Artery/Lesion type: [place] artery [place] vs. transplanted heart: [place] heart Associated angina: without angina Qualified Code(s): I25.10 - Atherosclerotic heart disease of [place] coronary artery without angina pectoris (5) CHF (congestive heart failure) Code(s): I50.9 - HEART FAILURE, UNSPECIFIED Qualifiers: Heart failure type: unspecified Heart failure chronicity: acute on chronic Qualified Code(s): I50.9 - Heart failure, unspecified (6) COPD (chronic obstructive pulmonary disease) Code(s): J44.9 - CHRONIC OBSTRUCTIVE PULMONARY DISEASE, UNSPECIFIED (7) COPD with acute exacerbation Code(s): J44.1 - CHRONIC OBSTRUCTIVE PULMONARY DISEASE W (ACUTE) EXACERBATION Assessment/Plan BRONCHODILATORS STEROID TAPER O2 LASIX MONITOR WEIGHT/ELECTROLYTES ANTICOAGULATION MONITOR LYTES DAILY WT DR TEJEDA Problem List - Problems (1) CHF exacerbation Code(s): I50.9 - HEART FAILURE, UNSPECIFIED Qualifiers: Heart failure type: unspecified Qualified Code(s): I50.9 - Heart failure, unspecified (2) Shortness of breath Code(s): R06.02 - SHORTNESS OF BREATH (3) Atrial fibrillation Code(s): I48.91 - UNSPECIFIED ATRIAL FIBRILLATION Qualifiers: Atrial fibrillation type: persistent Qualified Code(s): I48.1 - Persistent atrial fibrillation (4) CAD (coronary artery disease) Code(s): I25.10 - ATHSCL HEART DISEASE OF [place] CORONARY ARTERY W/O ANG PCTRS Qualifiers: Coronary Disease-Associated Artery/Lesion type: [place] artery [place] vs. transplanted heart: [place] heart Associated angina: without angina Qualified Code(s): I25.10 - Atherosclerotic heart disease of [place] coronary artery without angina pectoris (5) CHF (congestive heart failure) Code(s): I50.9 - HEART FAILURE, UNSPECIFIED Qualifiers: Heart failure type: unspecified Heart failure chronicity: acute on chronic Qualified Code(s): I50.9 - Heart failure, unspecified (6) COPD (chronic obstructive pulmonary disease) Code(s): J44.9 - CHRONIC OBSTRUCTIVE PULMONARY DISEASE, UNSPECIFIED (7) COPD with acute exacerbation Code(s): J44.1 - CHRONIC OBSTRUCTIVE PULMONARY DISEASE W (ACUTE) EXACERBATION
--- NOTE | 2018-05-28 11:31 | PN ---
Progress Note, Physician History of Present Illness: Pt seen and examined at bedside. He is awake and alert. He still complains of shortness of breath and edema. - Current Medication List Current Medications: Active Medications Albuterol/Ipratropium (Duoneb -) 1 amp NEB RQID [facility] Last Admin: 05/28/18 08:47 Dose: 1 amp Atorvastatin Calcium (Lipitor -) 40 mg PO HS [facility] Last Admin: 05/27/18 21:55 Dose: 40 mg Dabigatran (Pradaxa -) 150 mg PO BID [facility] Last Admin: 05/27/18 21:55 Dose: 150 mg Digoxin (Lanoxin -) 0.25 mg PO DAILY [facility] Last Admin: 05/27/18 11:02 Dose: 0.25 mg Furosemide (Lasix Injection -) 120 mg IVPUSH BID@0600,1400 [facility] Last Admin: 05/28/18 06:24 Dose: 120 mg Guaifenesin (Robitussin -) 10 ml PO Q6H PRN PRN Reason: COUGH Last Admin: 05/27/18 22:23 Dose: 10 ml Insulin Aspart (Novolog Vial Sliding Scale -) 1 vial SQ ACHS [facility]; Protocol Last Admin: 05/28/18 06:23 Dose: Not Given Methylprednisolone Sodium Succinate (Solu-Medrol -) 40 mg IVPB Q8H-IV [facility] Metoprolol Succinate (Toprol Xl -) 50 mg PO DAILY [facility] Last Admin: 05/27/18 11:02 Dose: 50 mg Montelukast Sodium (Singulair -) 10 mg PO HS [facility] Last Admin: 05/27/18 21:55 Dose: 10 mg Potassium Chloride (K-Dur -) 20 meq PO DAILY [facility] Last Admin: 05/27/18 11:02 Dose: 20 meq Ranitidine HCl (Zantac -) 150 mg PO DAILY [facility] Last Admin: 05/27/18 11:02 Dose: 150 mg Trazodone HCl (Desyrel -) 100 mg PO HS [facility] Last Admin: 05/27/18 21:56 Dose: 100 mg - Objective Vital Signs: Vital Signs Temperature 97.3 F L 05/28/18 06:00 Pulse Rate 84 05/28/18 08:53 Respiratory Rate 20 05/28/18 08:53 Blood Pressure 135/77 05/28/18 08:53 O2 Sat by Pulse Oximetry (%) 96 05/28/18 08:59 Constitutional: Yes: Calm Eyes: Yes: Conjunctiva Clear HENT: Yes: Atraumatic Neck: Yes: Supple Cardiovascular: Yes: S1, S2 Respiratory: Yes: On Nasal O2, Rhonchi Gastrointestinal: Yes: Soft, Abdomen, Obese Genitourinary: Yes: WNL Edema: Yes Edema: LLE: 2+, RLE: 2+ Integumentary: Yes: Venous Stasis Changes Neurological: Yes: Oriented Psychiatric: Yes: Oriented Labs: CBC, BMP 05/27/18 11:00 05/28/18 05:30 INR, PTT INR 1.17 (0.82-1.09) H 05/22/18 13:05 Problem List - Problems (1) Hypokalemia Code(s): E87.6 - HYPOKALEMIA (2) Diabetes Code(s): E11.9 - TYPE 2 DIABETES MELLITUS WITHOUT COMPLICATIONS Qualifiers: Diabetes mellitus type: type 2 Diabetes mellitus terminal block assembler insulin use: without terminal block assembler use Diabetes mellitus complication status: without complication Qualified Code(s): E11.9 - Type 2 diabetes mellitus without complications (3) Hypertension Code(s): I10 - ESSENTIAL (PRIMARY) HYPERTENSION Qualifiers: Hypertension type: essential hypertension Qualified Code(s): I10 - Essential (primary) hypertension Assessment/Plan Current Medications Generic Name Dose Route Start Last Admin Trade Name Freq PRN Reason Stop Dose Admin Albuterol/Ipratropium 1 amp 05/27/18 12:00 05/28/18 08:47 Duoneb - NEB 1 amp RQID [facility] Administration Atorvastatin Calcium 40 mg 05/22/18 22:00 05/27/18 21:55 Lipitor - PO 40 mg HS [facility] Administration Dabigatran 150 mg 05/22/18 22:00 05/27/18 21:55 Pradaxa - PO 150 mg BID [facility] Administration Digoxin 0.25 mg 05/26/18 15:45 05/27/18 11:02 Lanoxin - PO 0.25 mg DAILY [facility] Administration Furosemide 120 mg 05/26/18 15:37 05/28/18 06:24 Lasix Injection - IVPUSH 120 mg BID@0600,1400 [facility] Administration Guaifenesin 10 ml 05/22/18 23:36 05/27/18 22:23 Robitussin - PO 10 ml Q6H PRN Administration COUGH Insulin Aspart 1 vial 05/22/18 16:30 05/28/18 06:23 Novolog Vial Sliding Scale - SQ Not Given ACHS [facility] Protocol Methylprednisolone Sodium Succinate 40 mg 05/28/18 18:00 Solu-Medrol - IVPB Q8H-IV [facility] Metoprolol Succinate 50 mg 05/27/18 10:00 05/27/18 11:02 Toprol Xl - PO 50 mg DAILY [facility] Administration Montelukast Sodium 10 mg 05/22/18 22:00 05/27/18 21:55 Singulair - PO 10 mg HS [facility] Administration Potassium Chloride 20 meq 05/22/18 15:45 05/27/18 11:02 K-Dur - PO 20 meq DAILY [facility] Administration Ranitidine HCl 150 mg 05/23/18 10:00 05/27/18 11:02 Zantac - PO 150 mg DAILY [facility] Administration Trazodone HCl 100 mg 05/22/18 22:00 05/27/18 21:56 Desyrel - PO 100 mg HS [facility] Administration Impression 1. CHF 2. hypokalemia 3. hypomagnesemia 4. asthma 5. a-fib 6. DM Plan - change lasix to 80 tid - will give a dose of aldactone - monitor weights and output - monitor bicarb - steroids with taper per pulm - will follow - replace mag
[2018-05-28] MEDS ORDERED: SPIRONOLACTONE 25 MG TABLET (FP) PO ONE ×2 (11:32→16:00)
[2018-05-28] MEDS: RANITIDINE HCL 150 MG TABLET (FP) PO SCH (11:41)
[2018-05-28] MEDS: DABIGATRAN ETEXILATE MESYLATE 150 MG CAPSULE PO SCH ×2 (11:41→21:50)
[2018-05-28] MEDS: DIGOXIN 0.25 MG TABLET (FP) PO SCH (11:42)
[2018-05-28] MEDS ORDERED: MAGNESIUM SULF 50% (8.12 MEQ/2 ML-1 GM VIAL) ONE (11:44)
--- NOTE | 2018-05-28 11:49 | PN ---
Progress Note, Physician Chief Complaint: STILL SOB COUGH WEAKNESS - Current Medication List Current Medications: Active Medications Albuterol/Ipratropium (Duoneb -) 1 amp NEB RQID [facility] Last Admin: 05/28/18 08:47 Dose: 1 amp Atorvastatin Calcium (Lipitor -) 40 mg PO [facility] Last Admin: 05/27/18 21:55 Dose: 40 mg Dabigatran (Pradaxa -) 150 mg PO BID [facility] Last Admin: 05/28/18 11:41 Dose: 150 mg Digoxin (Lanoxin -) 0.25 mg PO DAILY [facility] Last Admin: 05/28/18 11:42 Dose: 0.25 mg Furosemide (Lasix Injection -) 80 mg IVPUSH TID [facility] Guaifenesin (Robitussin -) 10 ml PO Q6H PRN PRN Reason: COUGH Last Admin: 05/27/18 22:23 Dose: 10 ml Insulin Aspart (Novolog Vial Sliding Scale -) 1 vial SQ [facility]; Protocol Last Admin: 05/28/18 11:48 Dose: 3 units Methylprednisolone Sodium Succinate (Solu-Medrol -) 40 mg IVPB Q8H-IV [facility] Metoprolol Succinate (Toprol Xl -) 50 mg PO DAILY [facility] Last Admin: 05/28/18 11:41 Dose: 50 mg Montelukast Sodium (Singulair -) 10 mg PO [facility] Last Admin: 05/27/18 21:55 Dose: 10 mg Ranitidine HCl (Zantac -) 150 mg PO DAILY [facility] Last Admin: 05/28/18 11:41 Dose: 150 mg Spironolactone (Aldactone -) 25 mg PO ONCE ONE Stop: 05/28/18 11:33 Trazodone HCl (Desyrel -) 100 mg PO [facility] Last Admin: 05/27/18 21:56 Dose: 100 mg - Objective Vital Signs: Vital Signs Temperature 97.3 F L 05/28/18 06:00 Pulse Rate 76 05/28/18 11:42 Respiratory Rate 20 05/28/18 08:53 Blood Pressure 135/77 05/28/18 08:53 O2 Sat by Pulse Oximetry (%) 96 05/28/18 08:59 Constitutional: Yes: Mild Distress Eyes: Yes: WNL HENT: Yes: WNL Neck: Yes: WNL Cardiovascular: Yes: WNL Respiratory: Yes: Poor Air Entry, SOB Gastrointestinal: Yes: WNL Genitourinary: Yes: WNL Musculoskeletal: Yes: Muscle Weakness Edema: Yes Peripheral Pulses WNL: Yes Integumentary: Yes: WNL Wound/Incision: Yes: Clean/Dry Neurological: Yes: WNL ...Motor Strength: WNL Psychiatric: Yes: WNL Labs: CBC, BMP 05/27/18 11:00 05/28/18 05:30 INR, PTT INR 1.17 (0.82-1.09) H 05/22/18 13:05 Problem List - Problems (1) CHF exacerbation Code(s): I50.9 - HEART FAILURE, UNSPECIFIED Qualifiers: Heart failure type: unspecified Qualified Code(s): I50.9 - Heart failure, unspecified (2) Electrolyte abnormality Code(s): E87.8 - OTH DISORDERS OF ELECTROLYTE AND FLUID BALANCE, NEC (3) Shortness of breath Code(s): R06.02 - SHORTNESS OF BREATH (4) Atrial fibrillation Code(s): I48.91 - UNSPECIFIED ATRIAL FIBRILLATION Qualifiers: Atrial fibrillation type: persistent Qualified Code(s): I48.1 - Persistent atrial fibrillation (5) CAD (coronary artery disease) Code(s): I25.10 - ATHSCL HEART DISEASE OF [place] CORONARY ARTERY W/O ANG PCTRS Qualifiers: Coronary Disease-Associated Artery/Lesion type: [place] artery [place] vs. transplanted heart: [place] heart Associated angina: without angina Qualified Code(s): I25.10 - Atherosclerotic heart disease of [place] coronary artery without angina pectoris (6) COPD with acute exacerbation Code(s): J44.1 - CHRONIC OBSTRUCTIVE PULMONARY DISEASE W (ACUTE) EXACERBATION (7) Congestive heart failure with LV diastolic dysfunction, NYHA class 2 Code(s): I50.30 - UNSPECIFIED DIASTOLIC (CONGESTIVE) HEART FAILURE (8) Diabetes Code(s): E11.9 - TYPE 2 DIABETES MELLITUS WITHOUT COMPLICATIONS Qualifiers: Diabetes mellitus type: type 2 Diabetes mellitus senior care insulin use: without computer terminal operator use Diabetes mellitus complication status: without complication Qualified Code(s): E11.9 - Type 2 diabetes mellitus without complications Assessment/Plan TELE CARDIO WORKUP IN PROGRESS CHECK ECHO FOR EF% PULM EVAL APPRECIATED, IV STEROIDS AND NEBS 02 SUPPORT ADDED INCENTIVE SPIROMETRY OOB TO CHAIR ON PRADAXA/ASA DIETARY CONSULT A1C% ORDERED WITH [facility] LIFESTYLE CHANGES STRESSED WITH MEDICAL COMPLIANCE WILL NEED SNF/RESP REHAB
[2018-05-28] MEDS: guaiFENesin 200 MG/10 ML 10 ML UNIT-DOSE CUPS PO PRN (16:02)
--- NOTE | 2018-05-28 17:24 | PN ---
Progress Note, Physician History of Present Illness: seen and examined today, persistent cough, no overnight events no new complaints. - Current Medication List Current Medications: Active Medications Albuterol/Ipratropium (Duoneb -) 1 amp NEB RQID [facility] Last Admin: 05/28/18 17:10 Dose: 1 amp Atorvastatin Calcium (Lipitor -) 40 mg PO HS [facility] Last Admin: 05/27/18 21:55 Dose: 40 mg Dabigatran (Pradaxa -) 150 mg PO BID [facility] Last Admin: 05/28/18 11:41 Dose: 150 mg Digoxin (Lanoxin -) 0.25 mg PO DAILY [facility] Last Admin: 05/28/18 11:42 Dose: 0.25 mg Furosemide (Lasix Injection -) 80 mg IVPUSH TID [facility] Last Admin: 05/28/18 16:01 Dose: 80 mg Guaifenesin (Robitussin -) 10 ml PO Q6H PRN PRN Reason: COUGH Last Admin: 05/28/18 16:02 Dose: 10 ml Insulin Aspart (Novolog Vial Sliding Scale -) 1 vial SQ [facility]; Protocol Last Admin: 05/28/18 11:48 Dose: 3 units Methylprednisolone Sodium Succinate (Solu-Medrol -) 40 mg IVPB Q8H-IV [facility] Metoprolol Succinate (Toprol Xl -) 50 mg PO DAILY [facility] Last Admin: 05/28/18 11:41 Dose: 50 mg Montelukast Sodium (Singulair -) 10 mg PO [facility] Last Admin: 05/27/18 21:55 Dose: 10 mg Ranitidine HCl (Zantac -) 150 mg PO DAILY [facility] Last Admin: 05/28/18 11:41 Dose: 150 mg Trazodone HCl (Desyrel -) 100 mg PO [facility] Last Admin: 05/27/18 21:56 Dose: 100 mg - Objective Vital Signs: Vital Signs Temperature 97.7 F 05/28/18 14:10 Pulse Rate 91 H 05/28/18 14:10 Respiratory Rate 18 05/28/18 14:10 Blood Pressure 132/84 05/28/18 14:10 O2 Sat by Pulse Oximetry (%) 96 05/28/18 08:59 Constitutional: Yes: Calm, Other (coughing) Eyes: Yes: Conjunctiva Clear, EOM Intact, PERRL HENT: Yes: Atraumatic, Normocephalic Neck: Yes: Supple, Trachea Midline Cardiovascular: Yes: Pulse Irregular, S1, S2. No: Bradycardia, Tachycardia, Bruit, JVD, Gallop, Murmur, Rub, S3, S4, Varicosities Respiratory: Yes: Regular, Cough, Diminished, Rhonchi, Wheezes. No: Rales, SOB Gastrointestinal: Yes: Normal Bowel Sounds, Soft. No: Distention, Tenderness Musculoskeletal: Yes: WNL Extremities: Yes: WNL Edema: Yes Edema: LLE: 1+, RLE: 1+ Peripheral Pulses WNL: Yes Neurological: Yes: Alert, Oriented Psychiatric: Yes: Alert, Oriented Labs: CBC, BMP 05/27/18 11:00 05/28/18 05:30 INR, PTT INR 1.17 (0.82-1.09) H 05/22/18 13:05 - ....Imaging Chest X-ray: Report Reviewed, Image Reviewed EKG: Report Reviewed, Image Reviewed Other: Report Reviewed, Image Reviewed (tele-afib, at times HR above goal but overally adequately controlled) Assessment/Plan 63 year-old man with a PMHx of chronic Afib and chronic systolic CHF secondary to non-ischemic cardiomyopathy with cardiac cath in 2006 and 2015 both showing moderate LV dysfunction and patent coronary arteries. Admitted with cough and dyspnea with evidence of acute on chronic systolic heart failure and rapid atrial fibrillation. Echocardiogram 05/23/2018 showed mild LV dilatation with severe LV systolic dysfunction and restrictive physiology. Normal RV. Mild LA dilatation. Moderate MR. 1) Cough/SOB-multifactorial due to AE COPD and Acute on chronic systolic CHF -Lasix was changed to 80 mg IV tid yesterday, pt again reports urinating more often and more quantity. -I/Os have been negative, bun/creat stable, K+wnl -monitor bun/creat, electrolytes and replete as needed -presume cough is largely in part due to COPD as well, pulmonary following, pt is on bronchodilators and steroids and is planned for pulmonary rehab -Monitor weight and I/O. 2) Persistent atrial fibrillation with controlled ventricular response. Diltiazem stopped cont Digoxin 0.25 mg daily then decrease it to 0.125 mg daily on 05/30/18 Cont Metoprolol XL 50 mg daily. Continue Pradaxa 150 mg BID for thromboembolic prevention.
[2018-05-28] MEDS ORDERED: traZODone HCL 50 MG TABLET (FP) ONE (21:17)
[2018-05-28] MEDS: MONTELUKAST NA 10 MG TABLET PO SCH (21:50)
[2018-05-28] MEDS: traZODone HCL 100 MG TABLET (FP) PO SCH (21:51)
[2018-05-28] MEDS: ATORVASTATIN CA 40 MG TABLET (FP) PO SCH (21:51)
[2018-05-29] MEDS: methylPREDNISolone NA SUCC 40 MG/1 ML VIAL IVPB SCH ×2 (03:55→09:22)
[2018-05-29] MEDS: INSULIN SLIDING SCALE (NOVOLOG) 1 VIAL SQ SCH ×2 (06:42→12:15)
[2018-05-29] MEDS: FUROSEMIDE 40 MG/4 ML INJECTABLE VIAL IVPUSH SCH (06:43)
[2018-05-29 07:48] LABS: ALBUMIN 2.6 g/dl (3.4-5.0); ANION GAP 7 (8-16); BLOOD UREA NITROGEN 39 mg/dL (7-18); CHLORIDE 89 mmol/L (98-107); CO2 39 mmol/L (21-32); CREATININE 0.9 mg/dL (0.7-1.3); GLUCOSE,RANDOM 247 mg/dL (74-106); MAGNESIUM 1.8 mg/dL (1.8-2.4); SGOT/AST 32 U/L (15-37); SGPT/ALT 43 U/L (12-78); SODIUM 135 mmol/L (136-145)
[2018-05-29 07:50] LABS: ALK PHOS 304 U/L (45-117); BILIRUBIN,TOTAL 0.6 mg/dL (0.2-1.0); CALCIUM 8.3 mg/dL (8.5-10.1)
[2018-05-29] MEDS: ALBUTEROL SO4 2.5/IPRATROPIUM 0.5 INH SOL 3 ML VIAL.NEB. NEB SCH ×2 (07:57→11:37)
[2018-05-29] MEDS: RANITIDINE HCL 150 MG TABLET (FP) PO SCH (09:22)
[2018-05-29] MEDS: guaiFENesin 200 MG/10 ML 10 ML UNIT-DOSE CUPS PO PRN (09:22)
[2018-05-29] MEDS: DIGOXIN 0.25 MG TABLET (FP) PO SCH (09:22)
[2018-05-29] MEDS: DABIGATRAN ETEXILATE MESYLATE 150 MG CAPSULE PO SCH (09:22)
[2018-05-29 10:48] VITALS: BP 135/80; PULSE 96; TEMP 98
--- NOTE | 2018-05-29 11:31 | DS ---
Physical Examination Vital Signs: Vital Signs Temperature 98 F 05/29/18 10:00 Pulse Rate 96 H 05/29/18 10:00 Respiratory Rate 20 05/29/18 10:00 Blood Pressure 135/80 05/29/18 10:00 O2 Sat by Pulse Oximetry (%) 99 05/28/18 20:39 Constitutional: Yes: Mild Distress Eyes: Yes: WNL HENT: Yes: WNL Neck: Yes: WNL Cardiovascular: Yes: Pulse Irregular Respiratory: Yes: Cough, Diminished, On Nasal O2 Gastrointestinal: Yes: WNL Renal/: Yes: WNL Musculoskeletal: Yes: Muscle Weakness Extremities: Yes: WNL Edema: Yes Edema: LLE: Trace, RLE: Trace Peripheral Pulses WNL: Yes Integumentary: Yes: WNL Wound/Incision: Yes: Clean/Dry Neurological: Yes: WNL ...Motor Strength: WNL Psychiatric: Yes: WNL Labs: CBC, BMP 05/27/18 11:00 05/29/18 06:30 Discharge Summary Reason For Visit: CHF,ATRIAL FIBRILLATION Current Active Problems CHF exacerbation (Acute) Electrolyte abnormality (Acute) Hypokalemia (Acute) Shortness of breath (Acute) copd/asthma exacerbation Procedures: Principal: CT CHEST Hospital Course: ADMITTED WITH CHF/COPD ACUTE ON CHRONIC EXACERBATIONS, TREATED WITH RESP SUPPORT , 02, LASIX, STEROIDS, AND NOW NEEDS SNF FOR THERAPY Condition: Fair - Instructions Diet, Activity, Other Instructions: STRICT RESPIRATORY FOLLOW UP DAILY WEIGHTS ADJUST DIURETICS PER WEIGHTS DAILY STEROID TAPER PT STRICT DIET LOW SODIUM Disposition: LONG TERM FACILITY - Home Medications Comprehensive Discharge Medication List: Ambulatory Orders Acetaminophen [Tylenol] 650 mg PO QID PRN 02/07/18 Albuterol 2.5/Ipratropium 0.5 [Duoneb -] 1 neb IH QID PRN 02/07/18 Albuterol 2.5/Ipratropium 0.5 [Duoneb -] 1 neb IH TID 02/07/18 Albuterol Sulfate Inhaler - [Ventolin Hfa Inhaler -] 1 - 2 inh PO Q4H 02/07/18 Aspirin 81 mg PO DAILY 02/07/18 Atorvastatin Calcium 40 mg PO HS 02/07/18 Fluticasone/Salmeterol [Advair Hfa 115-21 Mcg Inhaler] 2 inh PO BID 02/07/18 Guaifenesin [Diabetic Tussin Ex] 15 ml PO TID 02/07/18 Isosorbide Mononitrate 60 mg PO DAILY 02/07/18 Mag Hydrox/Al Hydrox/Simeth [Mylanta Oral Suspension -] 30 ml PO Q6H PRN Magnesium Oxide 800 mg PO DAILY 02/07/18 Methocarbamol [Robaxin -] 500 mg PO DAILY 02/07/18 Metoprolol Tartrate 100 mg PO BID 02/07/18 Mirtazapine [Remeron -] 15 mg PO HS 02/07/18 Montelukast Na [Singulair -] 10 mg PO DAILY 02/07/18 Polyethylene Glycol 3350 [Miralax 255 gm Btl -] 17 gm PO DAILY 02/07/18 Ranitidine [Zantac -] 150 mg PO BID 02/07/18 Sennosides [Senna -] 2 tab PO HS 02/07/18 Trazodone HCl 100 mg PO HS 02/07/18 Albuterol Sulfate 0.042% [Ventolin 0.042% (Half-Strength) -] 1 amp [facility] RQID amp 02/14/18 Dabigatran Etexilate Mesylate [Pradaxa -] 150 mg PO BID cap 02/14/18 Insulin Sliding Scale [Novolog Vial Sliding Scale -] 1 vial SQ ACHS units 02/14 Ipratropium 0.02% Nebulizer [Atrovent 0.02% Nebulizer -] 1 [facility] RQID amp 04/28 predniSONE [Deltasone -] 40 mg PO DAILY #30 tablet 02/14/18 Albuterol 2.5/Ipratropium 0.5 [Duoneb -] 1 [facility] RQID amp 05/29/18 Atorvastatin Ca [Lipitor] 40 mg PO HS tablet 05/29/18 Dabigatran Etexilate Mesylate [Pradaxa -] 150 mg PO BID cap 05/29/18 Digoxin [Lanoxin -] 0.25 mg PO DAILY tablet 05/29/18 Furosemide [Lasix -] 80 mg PO BID@0600,1400 tablet 05/29/18 Guaifenesin AC [Robitussin AC -] 5 ml PO TID PRN liquid MDD 20 05/29/18 Guaifenesin [Robitussin -] 10 ml PO Q6H PRN cup 05/29/18 Insulin Sliding Scale [Novolog Vial Sliding Scale -] 1 vial SQ ACHS units 05/29 Metoprolol Succinate [Toprol XL -] 50 mg PO DAILY tab.sr.24h 05/29/18 Montelukast Na [Singulair -] 10 mg PO HS tablet 05/29/18 Potassium Chloride [K-Dur -] 20 meq PO DAILY tablet.er 05/29/18 predniSONE [Deltasone -] See Taper PO DAILY tablet 05/29/18 traZODone HCL [Desyrel -] 100 mg PO HS tablet 05/29/18
[2018-05-29] MEDS ORDERED: predniSONE 20 MG TABLET (UD) PO SCH (12:15)
--- NOTE | 2018-05-29 12:21 | PN ---
Progress Note (short form) - Note Progress Note: PULMONARY Still some shortness of breath, cough and wheezing but better overall. Vital Signs Period Temp Pulse Resp BP Sys/Uribe Pulse Ox Last 24 Hr 96.0 F-98.3 F 88-99 18-20 118-146/74-100 99 Gen: frequent coughing Heart: RRR Lung: scattered wheezes Abd: soft, nontender Ext: + edema CBC, BMP 05/27/18 11:00 05/29/18 06:30 Active Medications Albuterol/Ipratropium (Duoneb -) 1 amp NEB RQID [facility] Last Admin: 05/29/18 11:37 Dose: 1 amp Atorvastatin Calcium (Lipitor -) 40 mg PO HS [facility] Last Admin: 05/28/18 21:51 Dose: 40 mg Dabigatran (Pradaxa -) 150 mg PO BID [facility] Last Admin: 05/29/18 09:22 Dose: 150 mg Digoxin (Lanoxin -) 0.25 mg PO DAILY [facility] Last Admin: 05/29/18 09:22 Dose: 0.25 mg Furosemide (Lasix Injection -) 80 mg IVPUSH TID [facility] Last Admin: 05/29/18 06:43 Dose: 80 mg Furosemide (Lasix -) 80 mg PO BID@0600,1400 [facility] Guaifenesin (Robitussin -) 10 ml PO Q6H PRN PRN Reason: COUGH Last Admin: 05/29/18 09:22 Dose: 10 ml Insulin Aspart (Novolog Vial Sliding Scale -) 1 vial SQ [facility]; Protocol Last Admin: 05/29/18 12:15 Dose: 6 units Metoprolol Succinate (Toprol Xl -) 50 mg PO DAILY [facility] Last Admin: 05/29/18 09:22 Dose: 50 mg Montelukast Sodium (Singulair -) 10 mg PO [facility] Last Admin: 05/28/18 21:50 Dose: 10 mg Prednisone (Deltasone -) 50 mg PO DAILY [facility] Ranitidine HCl (Zantac -) 150 mg PO DAILY [facility] Last Admin: 05/29/18 09:22 Dose: 150 mg Trazodone HCl (Desyrel -) 100 mg PO [facility] Last Admin: 05/28/18 21:51 Dose: 100 mg A/P Acute COPD Exacerbation Acute on Chronic Systolic Heart Failure Atrial Fibrillation HTN DM - continue lasix - monitor urine output, creatinine - prednisone taper - inhaled bronchodilators - O2 to keep Spo2 >90% - rate controlled - continue anticoagulation
[2018-05-29] MEDS ORDERED: FUROSEMIDE 40 MG TABLET (FP) PO SCH ×2 (14:00)
== END 2018-05-29 14:08 | DRG 190 ==
LOC: JER 11:59 → JERBED 14:12 → J4W 20:20
PROVIDERS: ADMIT Family Medicine; ATTEND Family Medicine
DX: J44.1 Chronic obstructive pulmonary disease with (acute) exacerbation (principal); I50.23 Acute on chronic systolic (congestive) heart failure; I42.9 Cardiomyopathy, unspecified; I48.1 Persistent atrial fibrillation; E78.00 Pure hypercholesterolemia, unspecified; I11.0 Hypertensive heart disease with heart failure; J45.909 Unspecified asthma, uncomplicated; F41.8 Other specified anxiety disorders; E11.9 Type 2 diabetes mellitus without complications; E87.6 Hypokalemia; E83.42 Hypomagnesemia; I25.10 Atherosclerotic heart disease of native coronary artery without angina pectoris; E66.9 Obesity, unspecified; Z68.36 Body mass index [BMI] 36.0-36.9, adult; E87.8 Other disorders of electrolyte and fluid balance, not elsewhere classified; Z87.891 Personal history of nicotine dependence
CPT/HCPCS: 36415; 71045-TC-FY; 71250-TC; 80048; 80053; 80061; 81003; 82550; 82553; 82962; 83036; 83605; 83721; 83735; 83880; 84100; 84484; 85025; 85027; 85610; 85730; 87040; 87045; 87046; 87070; 87086; 87186; 87205; 87324; 87449; 93005; 93010; 93306-TC; 94640; 97116-GP; 97161-GP; 99283-25; J0131; J7620

== ENCOUNTER 2018-08-29 14:07 | Inpatient (IN) | payer OTHER ==
--- NOTE | 2018-08-29 15:03 | PDOC ---
History of Present Illness - General History Source: Patient Exam Limitations: No Limitations - History of Present Illness Initial Comments: 08/29/18 15:15 The patient is a 63 year old male, with a significant PMH of hypertension, atrial fibrillation, CHF, diabetes mellitus, who presents to the emergency department with 7-8 days of shortness of breath, chest pain, nausea and diarrhea (non bloody). The patient also endorses leg swelling/ redness and pruritic sensation of the lower extremities. The patient states he called his PCP Dr. Wooten who advised the patient to come to the emergency department for admission. The patient denies headache, palpitations, lightheadedness, dizziness or syncope. Denies fever, chills, vomit and constipation. Denies dysuria, frequency, urgency and hematuria. Allergies: Iodinated Contrast - Oral and IV Dye PCP: Dr Wooten <Jose Antonio Jain - Last Filed: 08/29/18 15:18> <Christa Fischer - Last Filed: 09/01/18 08:33> - General Chief Complaint: Chest Pain Stated Complaint: Shortness of Breath Time Seen by Provider: 08/29/18 14:36 Past History <Jose Antonio Jain - Last Filed: 08/29/18 15:18> - Past Medical History Asthma: Yes Cardiac Disorders: Yes (A.fib, CAD) COPD: Yes CHF: Yes Diabetes: Yes HTN: Yes Hypercholesterolemia: Yes Psychiatric Problems: Yes (anxiety/depression) - Surgical History Cardiac Surgery: Yes (Cardiac Stent) Orthopedic Surgery: Yes - Suicide/Smoking/Psychosocial Hx Smoking History: Never smoked Have you smoked in the past 12 months: No Number of Cigarettes Smoked Daily: 0 If you are a former smoker, when did you quit?: 12 MONTHS Information on smoking cessation initiated: No 'Breaking Loose' booklet given: 02/07/18 Hx Alcohol Use: No Drug/Substance Use Hx: No Substance Use Type: None Hx Substance Use Treatment: No <Christa Fischer - Last Filed: 09/01/18 08:33> - Past Medical History Allergies/Adverse Reactions: Allergies Allergy/AdvReac Type Severity Reaction Status Date / Time Iodinated Contrast- Oral and AdvReac Intermediate Nausea Verified 08/29/18 14:38 IV Dye Home Medications: Ambulatory Orders Fluticasone/Salmeterol [Advair Hfa 115-21 Mcg Inhaler] 2 inh PO BID 02/07/18 Isosorbide Mononitrate 60 mg PO DAILY 02/07/18 Polyethylene Glycol 3350 [Miralax 255 gm Btl -] 17 gm PO DAILY 02/07/18 Sennosides [Senna -] 2 tab PO HS 02/07/18 Albuterol Sulfate 0.042% [Ventolin 0.042% (Half-Strength) -] 1 amp NEB RQID amp 02/14/18 Insulin Sliding Scale [Novolog Vial Sliding Scale -] 1 vial SQ ACHS units 02/14 Atorvastatin Ca [Lipitor] 40 mg PO HS tablet 05/29/18 Dabigatran Etexilate Mesylate [Pradaxa -] 150 mg PO BID cap 05/29/18 Digoxin [Lanoxin -] 0.25 mg PO DAILY tablet 05/29/18 Furosemide [Lasix -] 80 mg PO BID@0600,1400 tablet 05/29/18 Metoprolol Succinate [Toprol XL -] 50 mg PO DAILY tab.sr.24h 05/29/18 Montelukast Na [Singulair -] 10 mg PO HS tablet 05/29/18 Potassium Chloride [K-Dur -] 20 meq PO DAILY tablet.er 05/29/18 Melatonin 10 mg PO HS 08/29/18 Prednisone 5 mg PO DAILY 08/29/18 Review of Systems - Review of Systems Comments:: 08/29/18 15:16 GENERAL/CONSTITUTIONAL: No fever or chills. No weakness. HEAD, EYES, EARS, NOSE AND THROAT: No change in vision. No ear pain or discharge. No sore throat. CARDIOVASCULAR: (+) Chest pain. (+) Shortness of breath. (+) Bilateral leg swelling. RESPIRATORY: No cough, wheezing, or hemoptysis. GASTROINTESTINAL: (+) Nausea. (+) Diarrhea. No vomiting or constipation. GENITOURINARY: No dysuria, frequency, or change in urination. MUSCULOSKELETAL: No joint or muscle swelling or pain. No neck or back pain. SKIN: (+) Lower extremity redness and itchy sensation. NEUROLOGIC: No headache, vertigo, loss of consciousness, or change in strength/ sensation. ENDOCRINE: No increased thirst. No abnormal weight change. HEMATOLOGIC/LYMPHATIC: No anemia, easy bleeding, or history of blood clots. ALLERGIC/IMMUNOLOGIC: No hives or skin allergy. <Jose Antonio Jain - Last Filed: 08/29/18 15:18> *Physical Exam - Vital Signs Last Vital Signs Temp Pulse Resp BP Pulse Ox 98.4 F 87 26 H 110/77 98 08/29/18 14:30 08/29/18 14:30 08/29/18 14:30 08/29/18 14:30 08/29/18 14:30 <Jose Antonio Jain - Last Filed: 08/29/18 15:18> - Vital Signs Last Vital Signs Temp Pulse Resp BP Pulse Ox 98.4 F 87 26 H 110/77 98 08/29/18 14:30 08/29/18 14:30 08/29/18 14:30 08/29/18 14:30 08/29/18 14:30 - Physical Exam Comments: GENERAL: Awake, alert, and fully oriented, in no acute distress HEAD: No signs of trauma EYES: PERRLA, EOMI, sclera anicteric, conjunctiva clear ENT: Auricles normal inspection, hearing grossly normal, nares patent, oropharynx clear without exudates. Moist mucosa NECK: Normal ROM, supple, no lymphadenopathy, JVD, or masses LUNGS: Breath sounds equal, clear to auscultation bilaterally. No wheezes, and no crackles HEART: Regular rate and rhythm, normal S1 and S2, no murmurs, rubs or gallops ABDOMEN: Soft, nontender, normoactive bowel sounds. No guarding, no rebound. No masses EXTREMITIES: Normal range of motion, 3+ pitting edema BLE with stasis changes. No clubbing or cyanosis. No cords, erythema, or tenderness NEUROLOGICAL: Cranial nerves II through XII grossly intact. Normal speech, normal gait. Motor and sensation intact. SKIN: Warm, Dry, normal turgor, no rashes or lesions noted. <Christa Fischer - Last Filed: 09/01/18 08:33> ED Treatment Course - LABORATORY CBC & Chemistry Diagram: 08/30/18 05:30 09/01/18 05:30 <Christa Fischer - Last Filed: 09/01/18 08:33> Medical Decision Making - Medical Decision Making 08/29/18 16:36 Case d/w Dr. Wooten, as patient reported that he sent him for evaluation. As per Dr. Wooten, patient spoke to him a few days ago, not today. I will update Dr. Wooten with labs, however, based on presentation and CXR findings, suspect CHF exacerbation. \ 08/29/18 16:47 Labs returned, Dr. Wooten updated. <Christa Fischer - Last Filed: 09/01/18 08:33> *DC/Admit/Observation/Transfer - Attestations Scribe Attestion: 08/29/18 15:16 Documentation prepared by Jose Antonio Jain, acting as medical pathology teacher for Christa Fischer MD. <Jose Antonio Jain - Last Filed: 08/29/18 15:18> - Discharge Dispostion Decision to Admit order: Yes <Christa Fischer - Last Filed: 09/01/18 08:33> Diagnosis at time of Disposition: CHF (congestive heart failure) Qualifiers: Heart failure type: unspecified Heart failure chronicity: acute on chronic Qualified Code(s): I50.9 - Heart failure, unspecified - Discharge Dispostion Condition at time of disposition: Stable
[2018-08-29] MEDS ORDERED: diphenhydrAMINE HCL 25 MG CAPSULE (FP) PO ONE ×3 (15:40→22:30)
[2018-08-29 16:14] LABS: INR 1.44 (0.83-1.09); PROTHROMBIN TIME (PATIENT) 17.1 SEC (9.7-13.0)
[2018-08-29 16:17] LABS: BASO % 0.5 % (0-2.0); EOS % 1.2 % (0-4.5); HEMATOCRIT 40.2 % (35.4-49); HEMOGLOBIN 12.9 GM/dL (11.7-16.9); LYMPH % 7.5 % (8-40); MCH 29.1 pg (25.7-33.7); MEAN CELL VOLUME 91.1 fl (80-96); MEAN PLT VOLUME 9.4 fl (7.5-11.1); MONO % 14.1 % (3.8-10.2); NEUT % 76.7 % (42.8-82.8); PLATELET COUNT 168 K/MM3 (134-434); RBC 4.41 M/mm3 (4.00-5.60); RDW 17.3 % (11.9-15.9); WHITE BLOOD COUNT 6.6 K/mm3 (4.0-10.0)
[2018-08-29 16:43] LABS: ALBUMIN 2.8 g/dl (3.4-5.0); ALK PHOS 196 U/L (45-117); ANION GAP 10 MMOL/L (8-16); BILIRUBIN,TOTAL 1.4 mg/dL (0.2-1); BLOOD UREA NITROGEN 12 mg/dL (7-18); CALCIUM 7.5 mg/dL (8.5-10.1); CHLORIDE 92 mmol/L (98-107); CO2 29 mmol/L (21-32); CREATININE 0.8 mg/dL (0.55-1.3); GLUCOSE,RANDOM 99 mg/dL (74-106); N-TERMINAL BNP 3202.4 pg/ml (5-125); POTASSIUM 3.4 mmol/L (3.5-5.1); SGOT/AST 44 U/L (15-37); SGPT/ALT 27 U/L (13-61); SODIUM 132 mmol/L (136-145)
[2018-08-29] MEDS ORDERED: FUROSEMIDE 40 MG/4 ML INJECTABLE VIAL IVPUSH ONE (16:46)
[2018-08-29] MEDS ORDERED: FUROSEMIDE 40 MG/4 ML INJECTABLE VIAL ONE (17:28)
[2018-08-29] MEDS ORDERED: HEPARIN NA (PORCINE) 5,000 UNITS/ML 1ML VIAL SQ SCH (22:00)
[2018-08-29] MEDS: MELATONIN 5 MG TABLETS PO SCH (22:20)
[2018-08-29] MEDS: ATORVASTATIN CA 40 MG TABLET (FP) PO SCH (22:20)
[2018-08-29] MEDS: MONTELUKAST NA 10 MG TABLET PO SCH (22:20)
[2018-08-29] MEDS: SENNOSIDES 8.6MG TABLET (FP) PO SCH (22:21)
[2018-08-29] MEDS: INSULIN SLIDING SCALE (NOVOLOG) 1 VIAL SQ SCH (22:27)
[2018-08-30] MEDS: FLUTICASONE/SALMETEROL 100 MCG/50 MCG DISKUS IH SCH ×3 (02:35→22:43)
[2018-08-30 06:31] LABS: HEMATOCRIT 40.1 % (35.4-49); HEMOGLOBIN 12.8 GM/dL (11.7-16.9); MCH 29.2 pg (25.7-33.7); MEAN CELL VOLUME 91.5 fl (80-96); MEAN PLT VOLUME 8.8 fl (7.5-11.1); PLATELET COUNT 147 K/MM3 (134-434); RBC 4.38 M/mm3 (4.00-5.60); RDW 17.1 % (11.9-15.9); WHITE BLOOD COUNT 5.1 K/mm3 (4.0-10.0)
[2018-08-30] MEDS: INSULIN SLIDING SCALE (NOVOLOG) 1 VIAL SQ SCH ×3 (06:43→22:47)
[2018-08-30] MEDS: FUROSEMIDE 40 MG/4 ML INJECTABLE VIAL IVPUSH SCH ×2 (06:46→16:39)
[2018-08-30 07:34] LABS: ALBUMIN 2.6 g/dl (3.4-5.0); ALK PHOS 162 U/L (45-117); ANION GAP 9 MMOL/L (8-16); BILIRUBIN,TOTAL 1.2 mg/dL (0.2-1); BLOOD UREA NITROGEN 15 mg/dL (7-18); CALCIUM 7.2 mg/dL (8.5-10.1); CHLORIDE 94 mmol/L (98-107); CHOLESTEROL 88 mg/dL (50-200); CO2 31 mmol/L (21-32); CREATININE 0.8 mg/dL (0.55-1.3); GLUCOSE,RANDOM 103 mg/dL (74-106); HDL CHOLESTEROL 23 mg/dL (40-60); POTASSIUM 3.2 mmol/L (3.5-5.1); SGOT/AST 37 U/L (15-37); SGPT/ALT 25 U/L (13-61); SODIUM 134 mmol/L (136-145); TOT PROT 7.3 g/dl (6.4-8.2); TRIGLYCERIDES 80 mg/dL (0-150)
[2018-08-30] MEDS ORDERED: FLU VACCINE QUAD 60 MCG/0.5 ML (MDV 18-19) IM ONE (10:00)
[2018-08-30] MEDS: ISOSORBIDE MONONITRATE 60 MG TAB.SR.24H (FP) PO SCH (10:05)
[2018-08-30] MEDS: DIGOXIN 0.25 MG TABLET (FP) PO SCH (10:05)
[2018-08-30] MEDS: DABIGATRAN ETEXILATE MESYLATE 150 MG CAPSULE PO SCH ×2 (10:05→22:43)
[2018-08-30] MEDS: POTASSIUM CHLORIDE TABS 20 MEQ TABLET.ER (FP) PO SCH (10:05)
[2018-08-30] MEDS: predniSONE 5 MG TABLET (UD) PO SCH (10:05)
[2018-08-30] MEDS: POLYETHYLENE GLYCOL 3350 119 GM BTL PO SCH (10:07)
--- NOTE | 2018-08-30 11:02 | PN ---
Progress Note (short form) - Note Progress Note: PULMONARY CONSULTATION DICTATED 08/30/18 IMP DYSPNEA ACUTE ON CHRONIC SYSTOLIC CHF COPD PULMONARY HTN AFIB HTN DM LIKELY OSAS BRONCHIECTASIS PLAN IV LASIX INHALED BRONCHODILATORS SUPPLEMENTAL O2 DAILY WT F/U CHEST X-RAYS SLEEP SCREEN AC ECHO DR TEJEDA Problem List - Problems (1) CHF (congestive heart failure) Code(s): I50.9 - HEART FAILURE, UNSPECIFIED Qualifiers: Heart failure type: unspecified Heart failure chronicity: acute on chronic Qualified Code(s): I50.9 - Heart failure, unspecified (2) Atrial fibrillation Code(s): I48.91 - UNSPECIFIED ATRIAL FIBRILLATION Qualifiers: Atrial fibrillation type: persistent Qualified Code(s): I48.1 - Persistent atrial fibrillation (3) CAD (coronary artery disease) Code(s): I25.10 - ATHSCL HEART DISEASE OF [place] CORONARY ARTERY W/O ANG PCTRS Qualifiers: Coronary Disease-Associated Artery/Lesion type: [place] artery [place] vs. transplanted heart: [place] heart Associated angina: without angina Qualified Code(s): I25.10 - Atherosclerotic heart disease of [place] coronary artery without angina pectoris (4) CHF exacerbation Code(s): I50.9 - HEART FAILURE, UNSPECIFIED Qualifiers: Heart failure type: unspecified Qualified Code(s): I50.9 - Heart failure, unspecified (5) COPD (chronic obstructive pulmonary disease) Code(s): J44.9 - CHRONIC OBSTRUCTIVE PULMONARY DISEASE, UNSPECIFIED (6) Chest pain Code(s): R07.9 - CHEST PAIN, UNSPECIFIED Qualifiers: Chest pain type: unspecified Qualified Code(s): R07.9 - Chest pain, unspecified (7) Hypertension Code(s): I10 - ESSENTIAL (PRIMARY) HYPERTENSION Qualifiers: Hypertension type: essential hypertension Qualified Code(s): I10 - Essential (primary) hypertension (8) Shortness of breath Code(s): R06.02 - SHORTNESS OF BREATH (9) Pulmonary HTN Code(s): I27.20 - PULMONARY HYPERTENSION, UNSPECIFIED
--- NOTE | 2018-08-30 11:26 | CONS ---
DATE OF CONSULTATION: 08/30/2018 REFERRING PHYSICIAN: Jessica Wooten MD HISTORY: The patient is a 63-year-old male with a past medical history of hypertension, atrial fibrillation maintained on Pradaxa, CHF, COPD, diabetes and also pulmonary hypertension admitted to with the complaint of a 1-week history of increasing shortness of breath, dyspnea on exertion, chest discomfort, chest pain, nausea, and occasional diarrhea. The patient states for the past week or so he started noticing increasing shortness of breath as well as orthopnea. He had been taking his Lasix. His symptoms worsened, and he started noticing shortness of breath with minimal exertion. He also complains of chest pain. He presented to the emergency room with the above. The patient also noted increasing lower extremity edema. He called Dr. Wooten at which time he was advised to go to the emergency room. In the ER, he was felt to have acute CHF. He was treated with Lasix, supplemental O2 saturation, and transferred to the medical floor for further management. The patient has a history of tobacco use approximately 2 packs per day from age 6 to age 44. Quit approximately 19 years ago. 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 There is no history of recent travel. There is no history of DVT or pulmonary embolism in the past. Of note, his last echocardiogram on February 11, 2018 revealed a moderate reduction of left ventricular systolic function, ejection fraction 40%-45%. He was also noted to have mild tricuspid regurgitation and pulmonary artery pressure of approximately 38 mmHg. The patient is unsure whether or not he snores. He does have occasional daytime sleepiness. He also states for his completed he uses inhaled bronchodilators. PAST MEDICAL HISTORY: Again includes atrial fibrillation, CHF, diabetes, COPD, pulmonary hypertension, and hypertension. REVIEW OF SYSTEMS: Positive orthopnea, positive dyspnea, positive cough, positive chest pain. No fever, no chills, no hemoptysis, no abdominal pain. Positive lower extremity edema. CURRENT MEDICATIONS: Include prednisone 5 mg daily, Advair, Tylenol, Pradaxa, DuoNeb, Toprol, Lanoxin, MiraLAX, Senna, NovoLog, Singulair, Lasix, Imdur, melatonin, and K-Dur. PHYSICAL EXAMINATION: General: The patient is an obese male well-developed, awake, alert in no acute distress. Vital Signs: He is afebrile. Blood pressure 117/59, respiratory rate 20, O2 saturation 94% on room air. HEENT: Normocephalic and atraumatic. Neck: Supple. Heart: Irregularly irregular with S1, S2. Chest: Crackles. Abdomen: Soft. Bowel sounds are positive. Extremities: Bilateral lower extremity edema. LABORATORIES: BUN 15, creatinine 0.8, BNP 3202, WBC 5.1, hemoglobin 12.8, hematocrit 40.1 with a platelet count of 147,000, INR 1.44. Chest x-ray has cardiomegaly, mild pulmonary vascular congestion bilaterally. IMPRESSION: 1. Dyspnea secondary to acute on chronic systolic congestive heart failure. 2. History of chronic obstructive pulmonary disease. 3. Atrial fibrillation. 4. Pulmonary hypertension. 5. Hypertension. 6. Bronchiectasis noted on CT scan of the chest in May. 7. Likely obstructive sleep apnea. PLAN: Continue Lasix. Daily weights. Supplemental O2. Inhaled bronchodilators. Anticoagulation. Follow up chest x-rays. Monitor electrocautery. Sleep screen. PFT as an outpatient. RADHA TEJEDA M.D. [id number] MTDD
[2018-08-30] MEDS ORDERED: POTASSIUM CHLORIDE TABS 20 MEQ TABLET.ER (FP) PO ONE (12:17)
--- NOTE | 2018-08-30 12:17 | HP ---
Admitting History and Physical - Primary Care Physician PCP: Jessica Wooten - Admission Chief Complaint: DYSPNEA ON EXERTION/LEG EDEMA History of Present Illness: The patient is a 63 year old male, with a significant PMH of hypertension, atrial fibrillation, CHF, diabetes mellitus, who presents to the emergency department with 7-8 days of shortness of breath, chest pain, nausea and diarrhea (non bloody). Patient calling my office and I directed him to the ED for workup. History of non-compliance to medications and lifestyle changes. History Source: Patient, Medical Record Limitations to Obtaining History: No Limitations - Past Medical History Cardiovascular: Yes: AFIB, CAD, HTN, Other (atrial fibrillation) Pulmonary: Yes: COPD Infectious Disease: Yes: Other (pneumonia and the flu). No: Tuberculosis - Smoking History Smoking history: Never smoked Have you smoked in the past 12 months: No Aproximately how many cigarettes per day: 0 If you are a former smoker, when did you quit?: 12 MONTHS - Alcohol/Substance Use Hx Alcohol Use: No - Social History History of Recent Travel: No Home Medications - Allergies Allergies/Adverse Reactions: Allergies Allergy/AdvReac Type Severity Reaction Status Date / Time Iodinated Contrast- Oral and AdvReac Intermediate Nausea Verified 08/29/18 14:38 IV Dye - Home Medications Home Medications: Ambulatory Orders Fluticasone/Salmeterol [Advair Hfa 115-21 Mcg Inhaler] 2 inh PO BID 02/07/18 Isosorbide Mononitrate 60 mg PO DAILY 02/07/18 Polyethylene Glycol 3350 [Miralax 255 gm Btl -] 17 gm PO DAILY 02/07/18 Sennosides [Senna -] 2 tab PO HS 02/07/18 Albuterol Sulfate 0.042% [Ventolin 0.042% (Half-Strength) -] 1 amp NEB RQID amp 02/14/18 Insulin Sliding Scale [Novolog Vial Sliding Scale -] 1 vial SQ ACHS units 02/14 Atorvastatin Ca [Lipitor] 40 mg PO HS tablet 05/29/18 Dabigatran Etexilate Mesylate [Pradaxa -] 150 mg PO BID cap 05/29/18 Digoxin [Lanoxin -] 0.25 mg PO DAILY tablet 05/29/18 Furosemide [Lasix -] 80 mg PO BID@0600,1400 tablet 05/29/18 Metoprolol Succinate [Toprol XL -] 50 mg PO DAILY tab.sr.24h 05/29/18 Montelukast Na [Singulair -] 10 mg PO HS tablet 05/29/18 Potassium Chloride [K-Dur -] 20 meq PO DAILY tablet.er 05/29/18 Melatonin 10 mg PO HS 08/29/18 Prednisone 5 mg PO DAILY 08/29/18 Review of Systems - Review of Systems Constitutional: reports: Lethargy Eyes: reports: No Symptoms HENT: reports: No Symptoms Neck: reports: No Symptoms Cardiovascular: reports: Chest Pain, Palpitations, Shortness of Breath Respiratory: reports: Cough, SOB Gastrointestinal: reports: No Symptoms Genitourinary: reports: No Symptoms Musculoskeletal: reports: Muscle Pain, Muscle Weakness Integumentary: reports: Erythema Neurological: reports: Pre-Existing Deficit Endocrine: reports: No Symptoms Hematology/Lymphatic: reports: No Symptoms Psychiatric: reports: No Symptoms Physical Examination Vital Signs: Vital Signs Temperature 98.0 F 08/30/18 04:29 Pulse Rate 94 H 08/30/18 10:05 Respiratory Rate 08/30/18 06:00 Blood Pressure 117/59 L 08/30/18 06:00 O2 Sat by Pulse Oximetry (%) 93 L 08/29/18 20:50 Constitutional: Yes: Mild Distress Eyes: Yes: WNL HENT: Yes: WNL Neck: Yes: WNL Cardiovascular: Yes: Pulse Irregular Respiratory: Yes: Diminished, On Nasal O2 Gastrointestinal: Yes: WNL Renal/: Yes: WNL Musculoskeletal: Yes: Muscle Weakness Extremities: Yes: Erythema Edema: No Peripheral Pulses WNL: Yes Integumentary: Yes: Erythema Wound/Incision: Yes: Clean/Dry Neurological: Yes: Pre-Existing Deficit ...Motor Strength: LLE, RLE Psychiatric: Yes: Other Labs: CBC, BMP 08/30/18 05:30 08/30/18 05:30 Imaging - Results Chest X-ray: Report Reviewed Problem List - Problems (1) Cellulitis Code(s): L03.90 - CELLULITIS, UNSPECIFIED (2) CHF (congestive heart failure) Code(s): I50.9 - HEART FAILURE, UNSPECIFIED Qualifiers: Heart failure type: unspecified Heart failure chronicity: acute on chronic Qualified Code(s): I50.9 - Heart failure, unspecified (3) Pulmonary HTN Code(s): I27.20 - PULMONARY HYPERTENSION, UNSPECIFIED (4) Atrial fibrillation Code(s): I48.91 - UNSPECIFIED ATRIAL FIBRILLATION Qualifiers: Atrial fibrillation type: persistent Qualified Code(s): I48.1 - Persistent atrial fibrillation (5) CAD (coronary artery disease) Code(s): I25.10 - ATHSCL HEART DISEASE OF [place] CORONARY ARTERY W/O ANG PCTRS Qualifiers: Coronary Disease-Associated Artery/Lesion type: [place] artery [place] vs. transplanted heart: [place] heart Associated angina: without angina Qualified Code(s): I25.10 - Atherosclerotic heart disease of [place] coronary artery without angina pectoris (6) CHF exacerbation Code(s): I50.9 - HEART FAILURE, UNSPECIFIED Qualifiers: Heart failure type: unspecified Qualified Code(s): I50.9 - Heart failure, unspecified (7) COPD (chronic obstructive pulmonary disease) Code(s): J44.9 - CHRONIC OBSTRUCTIVE PULMONARY DISEASE, UNSPECIFIED (8) COPD with acute exacerbation Code(s): J44.1 - CHRONIC OBSTRUCTIVE PULMONARY DISEASE W (ACUTE) EXACERBATION (9) Diabetes Code(s): E11.9 - TYPE 2 DIABETES MELLITUS WITHOUT COMPLICATIONS Qualifiers: Diabetes mellitus type: type 2 Diabetes mellitus detention insulin use: without technical sales representative use Diabetes mellitus complication status: without complication Qualified Code(s): E11.9 - Type 2 diabetes mellitus without complications (10) Stasis dermatitis of both legs Code(s): I87.2 - VENOUS INSUFFICIENCY (CHRONIC) (PERIPHERAL) Assessment/Plan IV LASIX BID FOR ACUTE ON CHRONIC CHF EXACERBATION COPD/ASTHMA ON STEROIDS AND NEBS CARDIOLOGY/PULMONARY CONSULT OOB TO CHAIR ON PRADAXA FOR AFIB 1 LTR FLUID RESTRICTION/LOW NA DIET/ADA ELEVATE LEGS PT EVAL 02 SUPPORT
[2018-08-30 13:41] LABS: MAGNESIUM 1.3 mg/dL (1.8-2.4)
--- NOTE | 2018-08-30 15:25 | CON.CARD ---
Consult Consult Specialty:: Cardiology Reason for Consultation:: Dyspnea - History of Present Illness History of Present Illness: 63 year old male, hypertension, chronic atrial fibrillation, chronic heart failure with reduced EF, diabetes mellitus, who presents progressive shortness of breath, chest pain, nausea and diarrhea (non bloody). He has been feeling well on diuretics. - History Source History Provided By: Patient, Medical Record - Past Medical History Cardio/Vascular: Yes: AFIB, CAD, HTN, Other (atrial fibrillation) Pulmonary: Yes: COPD Infectious Disease: Yes: Other (pneumonia and the flu). No: Tuberculosis - Alcohol/Substance Use Hx Alcohol Use: No - Smoking History Smoking history: Never smoked Have you smoked in the past 12 months: No Aproximately how many cigarettes per day: 0 If you are a former smoker, when did you quit?: 12 MONTHS - Social History History of Recent Travel: No Home Medications - Allergies Allergies/Adverse Reactions: Allergies Allergy/AdvReac Type Severity Reaction Status Date / Time Iodinated Contrast- Oral and AdvReac Intermediate Nausea Verified 08/29/18 14:38 IV Dye - Home Medications Home Medications: Ambulatory Orders Fluticasone/Salmeterol [Advair Hfa 115-21 Mcg Inhaler] 2 inh PO BID 02/07/18 Isosorbide Mononitrate 60 mg PO DAILY 02/07/18 Polyethylene Glycol 3350 [Miralax 255 gm Btl -] 17 gm PO DAILY 02/07/18 Sennosides [Senna -] 2 tab PO HS 02/07/18 Albuterol Sulfate 0.042% [Ventolin 0.042% (Half-Strength) -] 1 amp NEB RQID amp 02/14/18 Insulin Sliding Scale [Novolog Vial Sliding Scale -] 1 vial SQ ACHS units 02/14 Atorvastatin Ca [Lipitor] 40 mg PO HS tablet 05/29/18 Dabigatran Etexilate Mesylate [Pradaxa -] 150 mg PO BID cap 05/29/18 Digoxin [Lanoxin -] 0.25 mg PO DAILY tablet 05/29/18 Furosemide [Lasix -] 80 mg PO BID@0600,1400 tablet 05/29/18 Metoprolol Succinate [Toprol XL -] 50 mg PO DAILY tab.sr.24h 05/29/18 Montelukast Na [Singulair -] 10 mg PO HS tablet 05/29/18 Potassium Chloride [K-Dur -] 20 meq PO DAILY tablet.er 05/29/18 Melatonin 10 mg PO HS 08/29/18 Prednisone 5 mg PO DAILY 08/29/18 Review of Systems - Review of Systems Constitutional: reports: No Symptoms Eyes: reports: No Symptoms HENT: reports: No Symptoms Cardiovascular: reports: Edema, Shortness of Breath Respiratory: reports: Cough, Exercise Intolerance, SOB, SOB on Exertion Gastrointestinal: reports: Diarrhea, Nausea. denies: Rectal Bleeding Vital Signs: Vital Signs Temperature 97.9 F 08/30/18 14:10 Pulse Rate 95 H 08/30/18 14:10 Respiratory Rate 20 08/30/18 14:10 Blood Pressure 115/70 08/30/18 14:10 O2 Sat by Pulse Oximetry (%) 95 08/30/18 10:00 Constitutional: Yes: Well Nourished, No Distress Eyes: Yes: Conjunctiva Clear, EOM Intact HENT: Yes: Atraumatic, Normocephalic Neck: Yes: Supple, Trachea Midline Respiratory: Yes: Regular, Rales Gastrointestinal: Yes: Normal Bowel Sounds, Soft Cardiovascular: Yes: Pulse Irregular JVD: Yes Carotid Bruit: No Heart Sounds: Yes: S1, S2 - Other Data Labs, Other Data: CBC, BMP 08/30/18 05:30 08/30/18 05:30 INR, PTT INR 1.44 (0.83-1.09) H 08/29/18 15:14 Troponin, BNP 08/29/18 08/29/18 15:14 15:14 Troponin I 0.02 B-Natriuretic Peptide 3202.4 H Troponin, BNP 08/29/18 08/29/18 15:14 15:14 Troponin I 0.02 B-Natriuretic Peptide 3202.4 H Afib NSST T changes Imaging - Results Chest X-ray: Report Reviewed Problem List - Problems (1) CHF (congestive heart failure) Code(s): I50.9 - HEART FAILURE, UNSPECIFIED Qualifiers: Heart failure type: unspecified Heart failure chronicity: acute on chronic Qualified Code(s): I50.9 - Heart failure, unspecified (2) Pulmonary HTN Code(s): I27.20 - PULMONARY HYPERTENSION, UNSPECIFIED (3) Atrial fibrillation Code(s): I48.91 - UNSPECIFIED ATRIAL FIBRILLATION Qualifiers: Atrial fibrillation type: persistent Qualified Code(s): I48.1 - Persistent atrial fibrillation Assessment/Plan 63 M NICM EF 35%, chronic Afib, admitted with diarrhea and heart failure. 1. Afib: HR controlled on Metoprolol and digoxin Tolerating Pradaxa. 2. HFrEF Continue IV lasix Replace potassium Add Lisinopril 2.5mg qd.
--- NOTE | 2018-08-30 18:07 | EKG ---
Test Reason : Blood Pressure : / mmHG Vent. Rate : 096 BPM Atrial Rate : 107 BPM P-R Int : 000 ms QRS Dur : 102 ms QT Int : 396 ms P-R-T Axes : 000 -12 195 degrees QTc Int : 500 ms ATRIAL FIBRILLATION NONSPECIFIC ST AND T WAVE ABNORMALITY ABNORMAL ECG WHEN COMPARED WITH ECG OF 22-MAY-2018 12:01, NO SIGNIFICANT CHANGE WAS FOUND Confirmed by KATELIN KIM MD ([id number]) on 08/30/2018 6:07:32 PM Referred By: Confirmed By:KAETLIN KIM MD
[2018-08-30] MEDS ORDERED: MAGNESIUM SULF 50% (8.12 MEQ/2 ML-1 GM VIAL) IVPB ONE (20:15)
--- NOTE | 2018-08-30 20:33 | CON.NEP ---
Consult Consult Specialty:: Nephrology Referred by:: dr gutiérrez Reason for Consultation:: renal insufficiency - History of Present Illness Chief Complaint: sob from chf History of Present Illness: admitted with sob h/o heart failure with reduced ef h/o afib - History Source History Provided By: Patient, Medical Record Limitations to Obtaining History: No Limitations - Past Medical History Cardio/Vascular: Yes: AFIB, CAD, HTN, Other (atrial fibrillation) Pulmonary: Yes: COPD Infectious Disease: Yes: Other (pneumonia and the flu). No: Tuberculosis - Alcohol/Substance Use Hx Alcohol Use: No - Smoking History Smoking history: Never smoked Have you smoked in the past 12 months: No Aproximately how many cigarettes per day: 0 If you are a former smoker, when did you quit?: 12 MONTHS - Social History History of Recent Travel: No Home Medications - Allergies Allergies/Adverse Reactions: Allergies Allergy/AdvReac Type Severity Reaction Status Date / Time Iodinated Contrast- Oral and AdvReac Intermediate Nausea Verified 08/29/18 14:38 IV Dye - Home Medications Home Medications: Ambulatory Orders Fluticasone/Salmeterol [Advair Hfa 115-21 Mcg Inhaler] 2 inh PO BID 02/07/18 Isosorbide Mononitrate 60 mg PO DAILY 02/07/18 Polyethylene Glycol 3350 [Miralax 255 gm Btl -] 17 gm PO DAILY 02/07/18 Sennosides [Senna -] 2 tab PO HS 02/07/18 Albuterol Sulfate 0.042% [Ventolin 0.042% (Half-Strength) -] 1 amp NEB RQID amp 02/14/18 Insulin Sliding Scale [Novolog Vial Sliding Scale -] 1 vial SQ ACHS units 02/14 Atorvastatin Ca [Lipitor] 40 mg PO HS tablet 05/29/18 Dabigatran Etexilate Mesylate [Pradaxa -] 150 mg PO BID cap 05/29/18 Digoxin [Lanoxin -] 0.25 mg PO DAILY tablet 05/29/18 Furosemide [Lasix -] 80 mg PO BID@0600,1400 tablet 05/29/18 Metoprolol Succinate [Toprol XL -] 50 mg PO DAILY tab.sr.24h 05/29/18 Montelukast Na [Singulair -] 10 mg PO HS tablet 05/29/18 Potassium Chloride [K-Dur -] 20 meq PO DAILY tablet.er 05/29/18 Melatonin 10 mg PO HS 08/29/18 Prednisone 5 mg PO DAILY 08/29/18 Nephrology Consult - Height Height: 5 ft 6 in - Weight Weight: 224 lb - BMI Body Mass Index (BMI): 36.1 - Lab Results CBC,BMP: CBC, BMP 08/30/18 05:30 08/30/18 05:30 Anion Gap: Anion Gap Anion Gap 9 MMOL/L (8-16) 08/30/18 05:30 - Physical Examination Vital Signs: Vital Signs Temperature 97.9 F 08/30/18 14:10 Pulse Rate 95 H 08/30/18 14:10 Respiratory Rate 20 08/30/18 14:10 Blood Pressure 115/70 08/30/18 14:10 O2 Sat by Pulse Oximetry (%) 95 08/30/18 10:00 Constitutional: Yes: Well Nourished Eyes: Yes: WNL HENT: Yes: WNL Neck: Yes: WNL Cardiovascular: Yes: WNL Respiratory: Yes: WNL Gastrointestinal: Yes: WNL Renal/: Yes: WNL Musculoskeletal: Yes: WNL Extremities: Yes: WNL Edema: Yes Edema: LLE: 1+, RLE: 1+ Peripheral Pulses WNL: Yes Integumentary: Yes: Erythema (legs) Neurological: Yes: WNL Psychiatric: Yes: WNL Assessment/Plan Hyponatremia Hypokalemia both 2/2 diuretic use Hypoalbuminemia Renal function normal now
[2018-08-30] MEDS ORDERED: diphenhydrAMINE HCL 25 MG CAPSULE (FP) PO ONE (20:52)
[2018-08-30] MEDS: SENNOSIDES 8.6MG TABLET (FP) PO SCH (22:42)
[2018-08-30] MEDS: HYDROCORTISONE 0.5% TOPICAL OINTMENT TUBE TP PRN (22:42)
[2018-08-30] MEDS: ATORVASTATIN CA 40 MG TABLET (FP) PO SCH (22:43)
[2018-08-30] MEDS: MONTELUKAST NA 10 MG TABLET PO SCH (22:43)
[2018-08-30] MEDS: MELATONIN 5 MG TABLETS PO SCH (22:43)
[2018-08-31] MEDS: FUROSEMIDE 40 MG/4 ML INJECTABLE VIAL IVPUSH SCH ×2 (05:50→13:00)
[2018-08-31] MEDS: INSULIN SLIDING SCALE (NOVOLOG) 1 VIAL SQ SCH ×3 (06:44→21:02)
[2018-08-31 08:07] LABS: ANION GAP 9 MMOL/L (8-16); BLOOD UREA NITROGEN 18 mg/dL (7-18); CALCIUM 7.6 mg/dL (8.5-10.1); CHLORIDE 92 mmol/L (98-107); CO2 30 mmol/L (21-32); CREATININE 0.8 mg/dL (0.55-1.3); GLUCOSE,RANDOM 141 mg/dL (74-106); POTASSIUM 3.2 mmol/L (3.5-5.1); SODIUM 131 mmol/L (136-145)
[2018-08-31] MEDS: LISINOPRIL 5 MG TABLET (FP) PO SCH (09:51)
[2018-08-31] MEDS: DABIGATRAN ETEXILATE MESYLATE 150 MG CAPSULE PO SCH ×2 (09:51→21:46)
[2018-08-31] MEDS: predniSONE 5 MG TABLET (UD) PO SCH (09:51)
[2018-08-31] MEDS: DIGOXIN 0.25 MG TABLET (FP) PO SCH (09:51)
[2018-08-31] MEDS: ISOSORBIDE MONONITRATE 60 MG TAB.SR.24H (FP) PO SCH (09:51)
[2018-08-31] MEDS: POLYETHYLENE GLYCOL 3350 119 GM BTL PO SCH (09:52)
[2018-08-31] MEDS: FLUTICASONE/SALMETEROL 100 MCG/50 MCG DISKUS IH SCH ×2 (09:52→21:46)
[2018-08-31] MEDS: POTASSIUM CHLORIDE TABS 20 MEQ TABLET.ER (FP) PO SCH (09:52)
--- NOTE | 2018-08-31 10:06 | PN ---
Progress Note, Physician History of Present Illness: PULMONARY ALERT,STILL C/O SOB,-CP. SLEEP SCREEN AHI 38.1 C/W SEVERE JUAN CARLOS - Current Medication List Current Medications: Active Medications Acetaminophen (Tylenol -) 650 mg PO Q6H PRN PRN Reason: PAIN OR FEVER Albuterol/Ipratropium (Duoneb -) 1 amp NEB Q6H PRN PRN Reason: SHORTNESS OF BREATH Atorvastatin Calcium (Lipitor -) 40 mg PO HS [facility] Last Admin: 08/30/18 22:43 Dose: 40 mg Dabigatran (Pradaxa -) 150 mg PO BID [facility] Last Admin: 08/31/18 09:51 Dose: 150 mg Digoxin (Lanoxin -) 0.25 mg PO DAILY [facility] Last Admin: 08/31/18 09:51 Dose: 0.25 mg Furosemide (Lasix Injection -) 40 mg IVPUSH BID@0600,1400 [facility] Last Admin: 08/31/18 05:50 Dose: 40 mg Hydrocortisone (Hytone 0.5% Ointment -) 1 applic TP BID PRN PRN Reason: DRY SKIN Last Admin: 08/30/18 22:42 Dose: 1 applic Insulin Aspart (Novolog Vial Sliding Scale -) 1 vial SQ ACHS [facility]; Protocol Last Admin: 08/31/18 06:44 Dose: Not Given Isosorbide Mononitrate (Imdur -) 60 mg PO DAILY [facility] Last Admin: 08/31/18 09:51 Dose: 60 mg Lisinopril (Prinivil) 2.5 mg PO DAILY [facility] Last Admin: 08/31/18 09:51 Dose: 2.5 mg Melatonin (Melatonin) 10 mg PO HS [facility] Last Admin: 08/30/18 22:43 Dose: 10 mg Metoprolol Succinate (Toprol Xl -) 50 mg PO DAILY [facility] Last Admin: 08/31/18 09:51 Dose: 50 mg Montelukast Sodium (Singulair -) 10 mg PO HS [facility] Last Admin: 08/30/18 22:43 Dose: 10 mg Polyethylene Glycol (Miralax (For Daily Use) -) 17 gm PO DAILY [facility] Last Admin: 08/31/18 09:52 Dose: Not Given Potassium Chloride (K-Dur -) 20 meq PO DAILY [facility] Last Admin: 08/31/18 09:52 Dose: 20 meq Prednisone (Deltasone -) 5 mg PO DAILY [facility] Last Admin: 08/31/18 09:51 Dose: 5 mg Fluticasone/Salmeterol (Advair 100mcg/50mcg -) 1 puff IH BID [facility] Last Admin: 08/31/18 09:52 Dose: 1 puff Senna (Senna -) 2 tab PO HS [facility] Last Admin: 08/30/18 22:42 Dose: 2 tab - Objective Vital Signs: Vital Signs Temperature 98.3 F 08/31/18 05:54 Pulse Rate 83 08/31/18 09:51 Respiratory Rate 20 08/31/18 07:51 Blood Pressure 114/79 08/31/18 05:54 O2 Sat by Pulse Oximetry (%) 96 08/31/18 07:51 Constitutional: Yes: Well Nourished, Calm Eyes: Yes: WNL HENT: Yes: WNL Neck: Yes: WNL Cardiovascular: Yes: Pulse Irregular, S1, S2 Respiratory: Yes: Rales ([id number] RALES) Gastrointestinal: Yes: Normal Bowel Sounds, Soft Extremities: Yes: WNL Edema: No Labs: CBC, BMP 08/31/18 07:00 INR, PTT INR 1.44 (0.83-1.09) H 08/29/18 15:14 Problem List - Problems (1) CHF (congestive heart failure) Code(s): I50.9 - HEART FAILURE, UNSPECIFIED Qualifiers: Heart failure type: unspecified Heart failure chronicity: acute on chronic Qualified Code(s): I50.9 - Heart failure, unspecified (2) Atrial fibrillation Code(s): I48.91 - UNSPECIFIED ATRIAL FIBRILLATION Qualifiers: Atrial fibrillation type: persistent Qualified Code(s): I48.1 - Persistent atrial fibrillation (3) CAD (coronary artery disease) Code(s): I25.10 - ATHSCL HEART DISEASE OF [place] CORONARY ARTERY W/O ANG PCTRS Qualifiers: Coronary Disease-Associated Artery/Lesion type: [place] artery [place] vs. transplanted heart: [place] heart Associated angina: without angina Qualified Code(s): I25.10 - Atherosclerotic heart disease of [place] coronary artery without angina pectoris (4) CHF exacerbation Code(s): I50.9 - HEART FAILURE, UNSPECIFIED Qualifiers: Heart failure type: unspecified Qualified Code(s): I50.9 - Heart failure, unspecified (5) COPD (chronic obstructive pulmonary disease) Code(s): J44.9 - CHRONIC OBSTRUCTIVE PULMONARY DISEASE, UNSPECIFIED (6) Chest pain Code(s): R07.9 - CHEST PAIN, UNSPECIFIED Qualifiers: Chest pain type: unspecified Qualified Code(s): R07.9 - Chest pain, unspecified (7) Hypertension Code(s): I10 - ESSENTIAL (PRIMARY) HYPERTENSION Qualifiers: Hypertension type: essential hypertension Qualified Code(s): I10 - Essential (primary) hypertension (8) Shortness of breath Code(s): R06.02 - SHORTNESS OF BREATH (9) Pulmonary HTN Code(s): I27.20 - PULMONARY HYPERTENSION, UNSPECIFIED Assessment/Plan IMP DYSPNEA IMPROVING ACUTE ON CHRONIC SYSTOLIC CHF COPD PULMONARY HTN AFIB HTN DM OSAS AHI 38.1 BRONCHIECTASIS PLAN IV LASIX INHALED BRONCHODILATORS SUPPLEMENTAL O2 DAILY WT F/U CHEST X-RAYS FORMAL SLEEP STUDIES OUTPATIENT AC ECHO [facility] Problem List - Problems (1) CHF (congestive heart failure) Code(s): I50.9 - HEART FAILURE, UNSPECIFIED Qualifiers: Heart failure type: unspecified Heart failure chronicity: acute on chronic Qualified Code(s): I50.9 - Heart failure, unspecified (2) Atrial fibrillation Code(s): I48.91 - UNSPECIFIED ATRIAL FIBRILLATION Qualifiers: Atrial fibrillation type: persistent Qualified Code(s): I48.1 - Persistent atrial fibrillation (3) CAD (coronary artery disease) Code(s): I25.10 - ATHSCL HEART DISEASE OF [place] CORONARY ARTERY W/O ANG PCTRS Qualifiers: Coronary Disease-Associated Artery/Lesion type: [place] artery [place] vs. transplanted heart: [place] heart Associated angina: without angina Qualified Code(s): I25.10 - Atherosclerotic heart disease of [place] coronary artery without angina pectoris (4) CHF exacerbation Code(s): I50.9 - HEART FAILURE, UNSPECIFIED Qualifiers: Heart failure type: unspecified Qualified Code(s): I50.9 - Heart failure, unspecified (5) COPD (chronic obstructive pulmonary disease) Code(s): J44.9 - CHRONIC OBSTRUCTIVE PULMONARY DISEASE, UNSPECIFIED (6) Chest pain Code(s): R07.9 - CHEST PAIN, UNSPECIFIED Qualifiers: Chest pain type: unspecified Qualified Code(s): R07.9 - Chest pain, unspecified (7) Hypertension Code(s): I10 - ESSENTIAL (PRIMARY) HYPERTENSION Qualifiers: Hypertension type: essential hypertension Qualified Code(s): I10 - Essential (primary) hypertension (8) Shortness of breath Code(s): R06.02 - SHORTNESS OF BREATH (9) Pulmonary HTN Code(s): I27.20 - PULMONARY HYPERTENSION, UNSPECIFIED
[2018-08-31] MEDS ORDERED: POTASSIUM CHLORIDE TABS 10 MEQ TABLET.ER (FP) PO ONE (10:08)
--- NOTE | 2018-08-31 13:36 | PN ---
Progress Note, Physician Chief Complaint: Cardiology FU Improved dyspnea. History of Present Illness: 63 year old male, hypertension, chronic atrial fibrillation, chronic heart failure with reduced EF, diabetes mellitus, who presents progressive shortness of breath, chest pain, nausea and diarrhea (non bloody). He has been feeling well on diuretics. - Current Medication List Current Medications: Active Medications Acetaminophen (Tylenol -) 650 mg PO Q6H PRN PRN Reason: PAIN OR FEVER Albuterol/Ipratropium (Duoneb -) 1 amp NEB Q6H PRN PRN Reason: SHORTNESS OF BREATH Atorvastatin Calcium (Lipitor -) 40 mg PO HS [facility] Last Admin: 08/30/18 22:43 Dose: 40 mg Dabigatran (Pradaxa -) 150 mg PO BID [facility] Last Admin: 08/31/18 09:51 Dose: 150 mg Digoxin (Lanoxin -) 0.25 mg PO DAILY [facility] Last Admin: 08/31/18 09:51 Dose: 0.25 mg Furosemide (Lasix Injection -) 40 mg IVPUSH BID@0600,1400 [facility] Last Admin: 08/31/18 13:00 Dose: 40 mg Hydrocortisone (Hytone 0.5% Ointment -) 1 applic TP BID PRN PRN Reason: DRY SKIN Last Admin: 08/30/18 22:42 Dose: 1 applic Insulin Aspart (Novolog Vial Sliding Scale -) 1 vial SQ ACHS [facility]; Protocol Last Admin: 08/31/18 13:00 Dose: Not Given Isosorbide Mononitrate (Imdur -) 60 mg PO DAILY [facility] Last Admin: 08/31/18 09:51 Dose: 60 mg Lisinopril (Prinivil) 2.5 mg PO DAILY [facility] Last Admin: 08/31/18 09:51 Dose: 2.5 mg Melatonin (Melatonin) 10 mg PO [facility] Last Admin: 08/30/18 22:43 Dose: 10 mg Metoprolol Succinate (Toprol Xl -) 50 mg PO DAILY [facility] Last Admin: 08/31/18 09:51 Dose: 50 mg Montelukast Sodium (Singulair -) 10 mg PO HS [facility] Last Admin: 08/30/18 22:43 Dose: 10 mg Polyethylene Glycol (Miralax (For Daily Use) -) 17 gm PO DAILY [facility] Last Admin: 08/31/18 09:52 Dose: Not Given Potassium Chloride (K-Dur -) 20 meq PO DAILY [facility] Last Admin: 08/31/18 09:52 Dose: 20 meq Prednisone (Deltasone -) 5 mg PO DAILY [facility] Last Admin: 08/31/18 09:51 Dose: 5 mg Fluticasone/Salmeterol (Advair 100mcg/50mcg -) 1 puff IH BID [facility] Last Admin: 08/31/18 09:52 Dose: 1 puff Senna (Senna -) 2 tab PO HS [facility] Last Admin: 08/30/18 22:42 Dose: 2 tab - Objective Vital Signs: Vital Signs Temperature 98.3 F 08/31/18 05:54 Pulse Rate 83 08/31/18 09:51 Respiratory Rate 20 08/31/18 07:51 Blood Pressure 114/79 08/31/18 05:54 O2 Sat by Pulse Oximetry (%) 96 08/31/18 07:51 Constitutional: Yes: Well Nourished, No Distress, Calm Eyes: Yes: Conjunctiva Clear HENT: Yes: Atraumatic, Normocephalic Neck: Yes: Supple, Trachea Midline Cardiovascular: Yes: Pulse Irregular, JVD, S1, S2 Respiratory: Yes: Regular, CTA Bilaterally Gastrointestinal: Yes: Normal Bowel Sounds Edema: Yes Edema: LLE: 1+, RLE: 1+ Labs: CBC, BMP 08/30/18 05:30 08/31/18 07:00 INR, PTT INR 1.44 (0.83-1.09) H 08/29/18 15:14 Problem List - Problems (1) CHF (congestive heart failure) Code(s): I50.9 - HEART FAILURE, UNSPECIFIED Qualifiers: Heart failure type: unspecified Heart failure chronicity: acute on chronic Qualified Code(s): I50.9 - Heart failure, unspecified (2) Pulmonary HTN Code(s): I27.20 - PULMONARY HYPERTENSION, UNSPECIFIED (3) Atrial fibrillation Code(s): I48.91 - UNSPECIFIED ATRIAL FIBRILLATION Qualifiers: Atrial fibrillation type: persistent Qualified Code(s): I48.1 - Persistent atrial fibrillation Assessment/Plan 63 M NICM EF 35%, chronic Afib, admitted with diarrhea and heart failure. 1. Afib: HR controlled on Metoprolol and digoxin Tolerating Pradaxa. 2. HFrEF Improving volume status-still volume up/warm Continue IV lasix Replace potassium Follow Magnesium level and replace.
--- NOTE | 2018-08-31 14:24 | PN ---
Progress Note, Physician Chief Complaint: FEELING BETTER STILL SOB - Current Medication List Current Medications: Active Medications Acetaminophen (Tylenol -) 650 mg PO Q6H PRN PRN Reason: PAIN OR FEVER Albuterol/Ipratropium (Duoneb -) 1 amp NEB Q6H PRN PRN Reason: SHORTNESS OF BREATH Atorvastatin Calcium (Lipitor -) 40 mg PO HS [facility] Last Admin: 08/30/18 22:43 Dose: 40 mg Dabigatran (Pradaxa -) 150 mg PO BID [facility] Last Admin: 08/31/18 09:51 Dose: 150 mg Digoxin (Lanoxin -) 0.25 mg PO DAILY [facility] Last Admin: 08/31/18 09:51 Dose: 0.25 mg Furosemide (Lasix Injection -) 40 mg IVPUSH BID@0600,1400 [facility] Last Admin: 08/31/18 13:00 Dose: 40 mg Hydrocortisone (Hytone 0.5% Ointment -) 1 applic TP BID PRN PRN Reason: DRY SKIN Last Admin: 08/30/18 22:42 Dose: 1 applic Insulin Aspart (Novolog Vial Sliding Scale -) 1 vial SQ [facility]; Protocol Last Admin: 08/31/18 13:00 Dose: Not Given Isosorbide Mononitrate (Imdur -) 60 mg PO DAILY [facility] Last Admin: 08/31/18 09:51 Dose: 60 mg Lisinopril (Prinivil) 2.5 mg PO DAILY [facility] Last Admin: 08/31/18 09:51 Dose: 2.5 mg Melatonin (Melatonin) 10 mg PO [facility] Last Admin: 08/30/18 22:43 Dose: 10 mg Metoprolol Succinate (Toprol Xl -) 50 mg PO DAILY [facility] Last Admin: 08/31/18 09:51 Dose: 50 mg Montelukast Sodium (Singulair -) 10 mg PO [facility] Last Admin: 08/30/18 22:43 Dose: 10 mg Polyethylene Glycol (Miralax (For Daily Use) -) 17 gm PO DAILY [facility] Last Admin: 08/31/18 09:52 Dose: Not Given Potassium Chloride (K-Dur -) 20 meq PO DAILY [facility] Last Admin: 08/31/18 09:52 Dose: 20 meq Prednisone (Deltasone -) 5 mg PO DAILY [facility] Last Admin: 08/31/18 09:51 Dose: 5 mg Fluticasone/Salmeterol (Advair 100mcg/50mcg -) 1 puff IH BID [facility] Last Admin: 08/31/18 09:52 Dose: 1 puff Senna (Senna -) 2 tab PO HS [facility] Last Admin: 08/30/18 22:42 Dose: 2 tab - Objective Vital Signs: Vital Signs Temperature 98.3 F 08/31/18 05:54 Pulse Rate 83 08/31/18 09:51 Respiratory Rate 20 08/31/18 07:51 Blood Pressure 114/79 08/31/18 05:54 O2 Sat by Pulse Oximetry (%) 96 08/31/18 07:51 Constitutional: Yes: Mild Distress Eyes: Yes: WNL HENT: Yes: WNL, Other Cardiovascular: Yes: Pulse Irregular Respiratory: Yes: On Nasal O2, Wheezes Gastrointestinal: Yes: WNL Genitourinary: Yes: WNL Musculoskeletal: Yes: WNL Extremities: Yes: WNL Edema: Yes Peripheral Pulses WNL: Yes Integumentary: Yes: Erythema Wound/Incision: Yes: Open to air Neurological: Yes: WNL ...Motor Strength: WNL Psychiatric: Yes: WNL Labs: CBC, BMP 08/30/18 05:30 08/31/18 07:00 INR, PTT INR 1.44 (0.83-1.09) H 08/29/18 15:14 Problem List - Problems (1) Cellulitis Code(s): L03.90 - CELLULITIS, UNSPECIFIED (2) CHF (congestive heart failure) Code(s): I50.9 - HEART FAILURE, UNSPECIFIED Qualifiers: Heart failure type: unspecified Heart failure chronicity: acute on chronic Qualified Code(s): I50.9 - Heart failure, unspecified (3) Pulmonary HTN Code(s): I27.20 - PULMONARY HYPERTENSION, UNSPECIFIED (4) Atrial fibrillation Code(s): I48.91 - UNSPECIFIED ATRIAL FIBRILLATION Qualifiers: Atrial fibrillation type: persistent Qualified Code(s): I48.1 - Persistent atrial fibrillation (5) CAD (coronary artery disease) Code(s): I25.10 - ATHSCL HEART DISEASE OF [place] CORONARY ARTERY W/O ANG PCTRS Qualifiers: Coronary Disease-Associated Artery/Lesion type: [place] artery [place] vs. transplanted heart: [place] heart Associated angina: without angina Qualified Code(s): I25.10 - Atherosclerotic heart disease of [place] coronary artery without angina pectoris (6) CHF exacerbation Code(s): I50.9 - HEART FAILURE, UNSPECIFIED Qualifiers: Heart failure type: unspecified Qualified Code(s): I50.9 - Heart failure, unspecified (7) COPD (chronic obstructive pulmonary disease) Code(s): J44.9 - CHRONIC OBSTRUCTIVE PULMONARY DISEASE, UNSPECIFIED (8) COPD with acute exacerbation Code(s): J44.1 - CHRONIC OBSTRUCTIVE PULMONARY DISEASE W (ACUTE) EXACERBATION (9) Diabetes Code(s): E11.9 - TYPE 2 DIABETES MELLITUS WITHOUT COMPLICATIONS Qualifiers: Diabetes mellitus type: type 2 Diabetes mellitus terminal system operator insulin use: without terminal system operator use Diabetes mellitus complication status: without complication Qualified Code(s): E11.9 - Type 2 diabetes mellitus without complications (10) Stasis dermatitis of both legs Code(s): I87.2 - VENOUS INSUFFICIENCY (CHRONIC) (PERIPHERAL) Assessment/Plan IV LASIX BID FOR ACUTE ON CHRONIC CHF EXACERBATION COPD/ASTHMA ON STEROIDS AND NEBS CARDIOLOGY/PULMONARY CONSULT OOB TO CHAIR ON PRADAXA FOR AFIB 1 LTR FLUID RESTRICTION/LOW NA DIET/ADA ELEVATE LEGS PT EVAL 02 SUPPORT
--- NOTE | 2018-08-31 18:19 | PN ---
Progress Note (short form) - Note Progress Note: covering dr pena/valves hypertension, chronic atrial fibrillation, chronic heart failure with reduced EF, diabetes mellitus, progressive shortness of breath, chest pain, nausea and diarrhea Active Medications Acetaminophen (Tylenol -) 650 mg PO Q6H PRN PRN Reason: PAIN OR FEVER Albuterol/Ipratropium (Duoneb -) 1 amp NEB Q6H PRN PRN Reason: SHORTNESS OF BREATH Atorvastatin Calcium (Lipitor -) 40 mg PO HS [facility] Last Admin: 08/30/18 22:43 Dose: 40 mg Dabigatran (Pradaxa -) 150 mg PO BID [facility] Last Admin: 08/31/18 09:51 Dose: 150 mg Digoxin (Lanoxin -) 0.25 mg PO DAILY [facility] Last Admin: 08/31/18 09:51 Dose: 0.25 mg Furosemide (Lasix Injection -) 40 mg IVPUSH BID@0600,1400 [facility] Last Admin: 08/31/18 13:00 Dose: 40 mg Hydrocortisone (Hytone 0.5% Ointment -) 1 applic TP BID PRN PRN Reason: DRY SKIN Last Admin: 08/30/18 22:42 Dose: 1 applic Insulin Aspart (Novolog Vial Sliding Scale -) 1 vial SQ ACHS [facility]; Protocol Last Admin: 08/31/18 13:00 Dose: Not Given Isosorbide Mononitrate (Imdur -) 60 mg PO DAILY [facility] Last Admin: 08/31/18 09:51 Dose: 60 mg Lisinopril (Prinivil) 2.5 mg PO DAILY [facility] Last Admin: 08/31/18 09:51 Dose: 2.5 mg Melatonin (Melatonin) 10 mg PO [facility] Last Admin: 08/30/18 22:43 Dose: 10 mg Metoprolol Succinate (Toprol Xl -) 50 mg PO DAILY [facility] Last Admin: 08/31/18 09:51 Dose: 50 mg Montelukast Sodium (Singulair -) 10 mg PO HS [facility] Last Admin: 08/30/18 22:43 Dose: 10 mg Polyethylene Glycol (Miralax (For Daily Use) -) 17 gm PO DAILY [facility] Last Admin: 08/31/18 09:52 Dose: Not Given Potassium Chloride (K-Dur -) 20 meq PO DAILY [facility] Last Admin: 08/31/18 09:52 Dose: 20 meq Prednisone (Deltasone -) 5 mg PO DAILY [facility] Last Admin: 08/31/18 09:51 Dose: 5 mg Fluticasone/Salmeterol (Advair 100mcg/50mcg -) 1 puff IH BID [facility] Last Admin: 08/31/18 09:52 Dose: 1 puff Senna (Senna -) 2 tab PO HS [facility] Last Admin: 08/30/18 22:42 Dose: 2 tab Last Vital Signs Temp Pulse Resp BP Pulse Ox 98.1 F 81 20 119/71 96 08/31/18 15:35 08/31/18 15:35 08/31/18 07:51 08/31/18 15:35 08/31/18 07:51 alert in nad less sob today Lungs clear Heart reg Abd soft CBC, BMP 08/30/18 05:30 08/31/18 07:00 renal sono and bladder normal IMP- Hyponatremia hypokalemia 2/2 diuretic tx Heart failure being eval Plan- no new intervention
[2018-08-31] MEDS ORDERED: PT OWN MED DRAWER 7, Y5N ONE (21:08)
[2018-08-31] MEDS: ATORVASTATIN CA 40 MG TABLET (FP) PO SCH (21:46)
[2018-08-31] MEDS: MONTELUKAST NA 10 MG TABLET PO SCH (21:46)
[2018-08-31] MEDS: SENNOSIDES 8.6MG TABLET (FP) PO SCH (21:46)
[2018-08-31] MEDS: MELATONIN 5 MG TABLETS PO SCH (21:47)
[2018-09-01] MEDS: INSULIN SLIDING SCALE (NOVOLOG) 1 VIAL SQ SCH ×5 (02:39→21:08)
[2018-09-01] MEDS: FUROSEMIDE 40 MG/4 ML INJECTABLE VIAL IVPUSH SCH ×2 (06:05→12:59)
[2018-09-01 07:36] LABS: ANION GAP 12 MMOL/L (8-16); BLOOD UREA NITROGEN 22 mg/dL (7-18); CALCIUM 7.5 mg/dL (8.5-10.1); CHLORIDE 98 mmol/L (98-107); CO2 27 mmol/L (21-32); CREATININE 0.8 mg/dL (0.55-1.3); GLUCOSE,RANDOM 125 mg/dL (74-106); POTASSIUM 3.8 mmol/L (3.5-5.1); SODIUM 136 mmol/L (136-145)
[2018-09-01] MEDS: DABIGATRAN ETEXILATE MESYLATE 150 MG CAPSULE PO SCH ×2 (09:36→21:07)
[2018-09-01] MEDS: DIGOXIN 0.25 MG TABLET (FP) PO SCH (09:36)
[2018-09-01] MEDS: POTASSIUM CHLORIDE TABS 20 MEQ TABLET.ER (FP) PO SCH (09:36)
[2018-09-01] MEDS: FLUTICASONE/SALMETEROL 100 MCG/50 MCG DISKUS IH SCH ×2 (09:36→21:08)
[2018-09-01] MEDS: ISOSORBIDE MONONITRATE 60 MG TAB.SR.24H (FP) PO SCH (09:36)
[2018-09-01] MEDS: predniSONE 5 MG TABLET (UD) PO SCH (09:36)
[2018-09-01] MEDS: LISINOPRIL 5 MG TABLET (FP) PO SCH (09:37)
[2018-09-01] MEDS: POLYETHYLENE GLYCOL 3350 119 GM BTL PO SCH (09:38)
--- NOTE | 2018-09-01 10:42 | PN ---
Progress Note, Physician Chief Complaint: patient admitted for Shortness of breath and increased leg swelling says his breathing today slightly better but complaining of leg pains - Current Medication List Current Medications: Active Medications Acetaminophen (Tylenol -) 650 mg PO Q6H PRN PRN Reason: PAIN OR FEVER Albuterol/Ipratropium (Duoneb -) 1 amp NEB Q6H PRN PRN Reason: SHORTNESS OF BREATH Atorvastatin Calcium (Lipitor -) 40 mg PO HS [facility] Last Admin: 08/31/18 21:46 Dose: 40 mg Dabigatran (Pradaxa -) 150 mg PO BID [facility] Last Admin: 09/01/18 09:36 Dose: 150 mg Digoxin (Lanoxin -) 0.25 mg PO DAILY [facility] Last Admin: 09/01/18 09:36 Dose: 0.25 mg Furosemide (Lasix Injection -) 40 mg IVPUSH BID@0600,1400 [facility] Last Admin: 09/01/18 06:05 Dose: 40 mg Hydrocortisone (Hytone 0.5% Ointment -) 1 applic TP BID PRN PRN Reason: DRY SKIN Last Admin: 08/30/18 22:42 Dose: 1 applic Insulin Aspart (Novolog Vial Sliding Scale -) 1 vial SQ ACHS [facility]; Protocol Last Admin: 09/01/18 02:39 Dose: Not Given Isosorbide Mononitrate (Imdur -) 60 mg PO DAILY [facility] Last Admin: 09/01/18 09:36 Dose: 60 mg Lisinopril (Prinivil) 2.5 mg PO DAILY [facility] Last Admin: 09/01/18 09:37 Dose: 2.5 mg Melatonin (Melatonin) 10 mg PO [facility] Last Admin: 08/31/18 21:47 Dose: 10 mg Metoprolol Succinate (Toprol Xl -) 50 mg PO DAILY [facility] Last Admin: 09/01/18 09:37 Dose: 50 mg Montelukast Sodium (Singulair -) 10 mg PO [facility] Last Admin: 08/31/18 21:46 Dose: 10 mg Polyethylene Glycol (Miralax (For Daily Use) -) 17 gm PO DAILY [facility] Last Admin: 09/01/18 09:38 Dose: Not Given Potassium Chloride (K-Dur -) 20 meq PO DAILY [facility] Last Admin: 09/01/18 09:36 Dose: 20 meq Prednisone (Deltasone -) 5 mg PO DAILY [facility] Last Admin: 09/01/18 09:36 Dose: 5 mg Fluticasone/Salmeterol (Advair 100mcg/50mcg -) 1 puff IH BID [facility] Last Admin: 09/01/18 09:36 Dose: 1 puff Senna (Senna -) 2 tab PO HS [facility] Last Admin: 08/31/18 21:46 Dose: 2 tab - Objective Vital Signs: Vital Signs Temperature 97.4 F L 09/01/18 06:12 Pulse Rate 92 H 09/01/18 09:36 Respiratory Rate 20 09/01/18 09:08 Blood Pressure 134/77 09/01/18 09:08 O2 Sat by Pulse Oximetry (%) 97 09/01/18 07:16 Constitutional: Yes: Calm Cardiovascular: Yes: Pulse Irregular, S1, S2 Respiratory: Yes: On Nasal O2, Wheezes, Other (diminished) Gastrointestinal: Yes: Normal Bowel Sounds, Soft Edema: Yes Neurological: Yes: Alert, Oriented Labs: CBC, BMP 08/30/18 05:30 09/01/18 05:30 INR, PTT INR 1.44 (0.83-1.09) H 08/29/18 15:14 Problem List - Problems (1) CHF (congestive heart failure) Assessment/Plan: iv lasix bid imdur and prinivil weight gone down 3 pounds since admission per patient leg swelling decreasing as well echo Code(s): I50.9 - HEART FAILURE, UNSPECIFIED Qualifiers: Heart failure type: unspecified Heart failure chronicity: acute on chronic Qualified Code(s): I50.9 - Heart failure, unspecified (2) Atrial fibrillation Assessment/Plan: metoprolol and digoxing pradaxa Code(s): I48.91 - UNSPECIFIED ATRIAL FIBRILLATION Qualifiers: Atrial fibrillation type: persistent Qualified Code(s): I48.1 - Persistent atrial fibrillation (3) COPD (chronic obstructive pulmonary disease) Assessment/Plan: bronchodilators Code(s): J44.9 - CHRONIC OBSTRUCTIVE PULMONARY DISEASE, UNSPECIFIED (4) Electrolyte abnormality Assessment/Plan: check magnesium level potassium is normal Code(s): E87.8 - OTH DISORDERS OF ELECTROLYTE AND FLUID BALANCE, NEC
[2018-09-01] MEDS ORDERED: MAGNESIUM SULF 50% (8.12 MEQ/2 ML-1 GM VIAL) IVPB ONE ×2 (10:45→11:25)
[2018-09-01 11:09] LABS: MAGNESIUM 1.4 mg/dL (1.8-2.4)
[2018-09-01] MEDS ORDERED: PT OWN MED DRAWER 7, Y5N ONE ×2 (12:58→20:07)
[2018-09-01] MEDS: HYDROCORTISONE 0.5% TOPICAL OINTMENT TUBE TP PRN (12:59)
--- NOTE | 2018-09-01 15:45 | PN ---
Progress Note, Physician History of Present Illness: Pt seen and examined at bedside. He is awake and alert. He still has shortness of breath. He also complains of pain in his legs. - Current Medication List Current Medications: Active Medications Acetaminophen (Tylenol -) 650 mg PO Q6H PRN PRN Reason: PAIN OR FEVER Albuterol/Ipratropium (Duoneb -) 1 amp NEB Q6H PRN PRN Reason: SHORTNESS OF BREATH Atorvastatin Calcium (Lipitor -) 40 mg PO HS [facility] Last Admin: 08/31/18 21:46 Dose: 40 mg Dabigatran (Pradaxa -) 150 mg PO BID [facility] Last Admin: 09/01/18 09:36 Dose: 150 mg Digoxin (Lanoxin -) 0.25 mg PO DAILY [facility] Last Admin: 09/01/18 09:36 Dose: 0.25 mg Furosemide (Lasix Injection -) 40 mg IVPUSH BID@0600,1400 [facility] Last Admin: 09/01/18 12:59 Dose: 40 mg Hydrocortisone (Hytone 0.5% Ointment -) 1 applic TP BID PRN PRN Reason: DRY SKIN Last Admin: 09/01/18 12:59 Dose: 1 applic Insulin Aspart (Novolog Vial Sliding Scale -) 1 vial SQ ACHS [facility]; Protocol Last Admin: 09/01/18 12:59 Dose: Not Given Isosorbide Mononitrate (Imdur -) 60 mg PO DAILY [facility] Last Admin: 09/01/18 09:36 Dose: 60 mg Lisinopril (Prinivil) 2.5 mg PO DAILY [facility] Last Admin: 09/01/18 09:37 Dose: 2.5 mg Magnesium Oxide (Mag-Ox -) 400 mg PO BID [facility] Melatonin (Melatonin) 10 mg PO [facility] Last Admin: 08/31/18 21:47 Dose: 10 mg Metoprolol Succinate (Toprol Xl -) 50 mg PO DAILY [facility] Last Admin: 09/01/18 09:37 Dose: 50 mg Montelukast Sodium (Singulair -) 10 mg PO [facility] Last Admin: 08/31/18 21:46 Dose: 10 mg Polyethylene Glycol (Miralax (For Daily Use) -) 17 gm PO DAILY [facility] Last Admin: 09/01/18 09:38 Dose: Not Given Potassium Chloride (K-Dur -) 20 meq PO DAILY [facility] Last Admin: 09/01/18 09:36 Dose: 20 meq Prednisone (Deltasone -) 5 mg PO DAILY [facility] Last Admin: 09/01/18 09:36 Dose: 5 mg Fluticasone/Salmeterol (Advair 100mcg/50mcg -) 1 puff IH BID [facility] Last Admin: 09/01/18 09:36 Dose: 1 puff Senna (Senna -) 2 tab PO HS [facility] Last Admin: 08/31/18 21:46 Dose: 2 tab - Objective Vital Signs: Vital Signs Temperature 98.4 F 09/01/18 14:00 Pulse Rate 70 09/01/18 14:00 Respiratory Rate 20 09/01/18 09:08 Blood Pressure 116/62 09/01/18 14:00 O2 Sat by Pulse Oximetry (%) 97 09/01/18 07:16 Constitutional: Yes: Calm Eyes: Yes: Conjunctiva Clear HENT: Yes: Atraumatic Neck: Yes: Supple Cardiovascular: Yes: S1, S2 Respiratory: Yes: On Nasal O2 Gastrointestinal: Yes: Soft, Abdomen, Obese Genitourinary: Yes: WNL Musculoskeletal: Yes: WNL Edema: Yes Edema: LLE: 1+, RLE: 1+ Integumentary: Yes: Venous Stasis Changes Neurological: Yes: Oriented Psychiatric: Yes: Oriented Labs: CBC, BMP 08/30/18 05:30 09/01/18 05:30 INR, PTT INR 1.44 (0.83-1.09) H 08/29/18 15:14 Problem List - Problems (1) Hyponatremia Code(s): E87.1 - HYPO-OSMOLALITY AND HYPONATREMIA (2) CHF (congestive heart failure) Code(s): I50.9 - HEART FAILURE, UNSPECIFIED Qualifiers: Heart failure type: unspecified Heart failure chronicity: acute on chronic Qualified Code(s): I50.9 - Heart failure, unspecified Assessment/Plan Current Medications Generic Name Dose Route Start Last Admin Trade Name Freq PRN Reason Stop Dose Admin Acetaminophen 650 mg 08/29/18 19:46 Tylenol - PO Q6H PRN PAIN OR FEVER Albuterol/Ipratropium 1 amp 08/29/18 19:46 Duoneb - NEB Q6H PRN SHORTNESS OF BREATH Atorvastatin Calcium 40 mg 08/29/18 22:00 08/31/18 21:46 Lipitor - PO 40 mg HS [facility] Administration Dabigatran 150 mg 08/30/18 10:00 09/01/18 09:36 Pradaxa - PO 150 mg BID [facility] Administration Digoxin 0.25 mg 08/30/18 10:00 09/01/18 09:36 Lanoxin - PO 0.25 mg DAILY [facility] Administration Furosemide 40 mg 08/30/18 06:00 09/01/18 12:59 Lasix Injection - IVPUSH 40 mg BID@0600,1400 [facility] Administration Hydrocortisone 1 applic 08/30/18 20:52 09/01/18 12:59 Hytone 0.5% Ointment - TP 1 applic BID PRN Administration DRY SKIN Insulin Aspart 1 vial 08/29/18 22:00 09/01/18 12:59 Novolog Vial Sliding Scale - SQ Not Given ACHS [facility] Protocol Isosorbide Mononitrate 60 mg 08/30/18 10:00 09/01/18 09:36 Imdur - PO 60 mg DAILY [facility] Administration Lisinopril 2.5 mg 08/31/18 10:00 09/01/18 09:37 Prinivil PO 2.5 mg DAILY [facility] Administration Magnesium Oxide 400 mg 09/01/18 22:00 Mag-Ox - PO BID [facility] Melatonin 10 mg 08/29/18 22:00 08/31/18 21:47 Melatonin PO 10 mg HS [facility] Administration Metoprolol Succinate 50 mg 08/30/18 10:00 09/01/18 09:37 Toprol Xl - PO 50 mg DAILY [facility] Administration Montelukast Sodium 10 mg 08/29/18 22:00 08/31/18 21:46 Singulair - PO 10 mg HS [facility] Administration Polyethylene Glycol 17 gm 08/30/18 10:00 09/01/18 09:38 Miralax (For Daily Use) - PO Not Given DAILY [facility] Potassium Chloride 20 meq 08/30/18 10:00 09/01/18 09:36 K-Dur - PO 20 meq DAILY [facility] Administration Prednisone 5 mg 08/30/18 10:00 09/01/18 09:36 Deltasone - PO 5 mg DAILY [facility] Administration Fluticasone/Salmeterol 1 puff 08/29/18 22:00 09/01/18 09:36 Advair 100mcg/50mcg - IH 1 puff BID [facility] Administration Senna 2 tab 08/29/18 22:00 08/31/18 21:46 Senna - PO 2 tab HS [facility] Administration Impression 1. CHF 2. hyponatremia 3. hypomagnesemia 4. asthma 5. a-fib 6. DM Plan - cont diuretics - replace magnesium - monitor lytes - repeat labs in am - check daily weights - will follow Dr Domingo
--- NOTE | 2018-09-01 15:50 | PN ---
Progress Note, Physician History of Present Illness: seen and examined today in nad. feeling better, still has cough. LE edema improving but still present. - Current Medication List Current Medications: Active Medications Acetaminophen (Tylenol -) 650 mg PO Q6H PRN PRN Reason: PAIN OR FEVER Albuterol/Ipratropium (Duoneb -) 1 amp NEB Q6H PRN PRN Reason: SHORTNESS OF BREATH Atorvastatin Calcium (Lipitor -) 40 mg PO HS [facility] Last Admin: 08/31/18 21:46 Dose: 40 mg Dabigatran (Pradaxa -) 150 mg PO BID [facility] Last Admin: 09/01/18 09:36 Dose: 150 mg Digoxin (Lanoxin -) 0.25 mg PO DAILY [facility] Last Admin: 09/01/18 09:36 Dose: 0.25 mg Furosemide (Lasix Injection -) 40 mg IVPUSH BID@0600,1400 [facility] Last Admin: 09/01/18 12:59 Dose: 40 mg Hydrocortisone (Hytone 0.5% Ointment -) 1 applic TP BID PRN PRN Reason: DRY SKIN Last Admin: 09/01/18 12:59 Dose: 1 applic Insulin Aspart (Novolog Vial Sliding Scale -) 1 vial SQ ACHS [facility]; Protocol Last Admin: 09/01/18 12:59 Dose: Not Given Isosorbide Mononitrate (Imdur -) 60 mg PO DAILY [facility] Last Admin: 09/01/18 09:36 Dose: 60 mg Lisinopril (Prinivil) 2.5 mg PO DAILY [facility] Last Admin: 09/01/18 09:37 Dose: 2.5 mg Magnesium Oxide (Mag-Ox -) 400 mg PO BID [facility] Melatonin (Melatonin) 10 mg PO [facility] Last Admin: 08/31/18 21:47 Dose: 10 mg Metoprolol Succinate (Toprol Xl -) 50 mg PO DAILY [facility] Last Admin: 09/01/18 09:37 Dose: 50 mg Montelukast Sodium (Singulair -) 10 mg PO [facility] Last Admin: 08/31/18 21:46 Dose: 10 mg Polyethylene Glycol (Miralax (For Daily Use) -) 17 gm PO DAILY [facility] Last Admin: 09/01/18 09:38 Dose: Not Given Potassium Chloride (K-Dur -) 20 meq PO DAILY [facility] Last Admin: 09/01/18 09:36 Dose: 20 meq Prednisone (Deltasone -) 5 mg PO DAILY [facility] Last Admin: 09/01/18 09:36 Dose: 5 mg Fluticasone/Salmeterol (Advair 100mcg/50mcg -) 1 puff IH BID [facility] Last Admin: 09/01/18 09:36 Dose: 1 puff Senna (Senna -) 2 tab PO HS [facility] Last Admin: 08/31/18 21:46 Dose: 2 tab - Objective Vital Signs: Vital Signs Temperature 98.4 F 09/01/18 14:00 Pulse Rate 70 09/01/18 14:00 Respiratory Rate 20 09/01/18 09:08 Blood Pressure 116/62 09/01/18 14:00 O2 Sat by Pulse Oximetry (%) 97 09/01/18 07:16 Constitutional: Yes: No Distress, Calm Eyes: Yes: Conjunctiva Clear, EOM Intact, PERRL HENT: Yes: Atraumatic, Normocephalic Neck: Yes: Supple, Trachea Midline Cardiovascular: Yes: Pulse Irregular, S1, S2. No: Regular Rate and Rhythm, Bradycardia, Tachycardia, Bruit, JVD, Gallop, Murmur, Rub, S3, S4, Varicosities Respiratory: Yes: Regular, Diminished. No: Rales, Rhonchi, SOB, Wheezes Gastrointestinal: Yes: Normal Bowel Sounds, Soft. No: Distention, Tenderness Musculoskeletal: Yes: WNL Extremities: Yes: WNL Edema: No Peripheral Pulses WNL: No Peripheral Pulses: Left Doralis Pedis: 2+, Right Dorsalis Pedis: 2+ Neurological: Yes: Alert, Oriented Psychiatric: Yes: Alert, Oriented Labs: CBC, BMP 08/30/18 05:30 09/01/18 05:30 INR, PTT INR 1.44 (0.83-1.09) H 08/29/18 15:14 - ....Imaging Chest X-ray: Report Reviewed, Image Reviewed EKG: Report Reviewed, Image Reviewed Other: Report Reviewed, Image Reviewed (tele-af, hr controlled) Assessment/Plan 63 M [facility] EF 35%, chronic Afib, admitted with diarrhea and heart failure. 1. Afib: HR controlled on Metoprolol and digoxin Tolerating Pradaxa. 2. HFrEF Improving, still mildly volume overloaded Cont IV lasix and attempt to transition to po tomorrow Replace potassium and Magnesium
[2018-09-01] MEDS: MAGNESIUM OXIDE 400 MG TABLET (FP) PO SCH (21:07)
[2018-09-01] MEDS: ATORVASTATIN CA 40 MG TABLET (FP) PO SCH (21:07)
[2018-09-01] MEDS: MONTELUKAST NA 10 MG TABLET PO SCH (21:07)
[2018-09-01] MEDS: SENNOSIDES 8.6MG TABLET (FP) PO SCH (21:07)
[2018-09-01] MEDS: MELATONIN 5 MG TABLETS PO SCH (21:07)
[2018-09-02] MEDS: INSULIN SLIDING SCALE (NOVOLOG) 1 VIAL SQ SCH ×4 (05:59→21:43)
[2018-09-02] MEDS: FUROSEMIDE 40 MG/4 ML INJECTABLE VIAL IVPUSH SCH ×2 (06:01→13:51)
[2018-09-02 07:24] LABS: ALK PHOS 187 U/L (45-117); ANION GAP 8 MMOL/L (8-16); BLOOD UREA NITROGEN 23 mg/dL (7-18); CALCIUM 7.8 mg/dL (8.5-10.1); CHLORIDE 98 mmol/L (98-107); CO2 28 mmol/L (21-32); CREATININE 0.7 mg/dL (0.55-1.3); GLUCOSE,RANDOM 109 mg/dL (74-106); MAGNESIUM 1.8 mg/dL (1.8-2.4); POTASSIUM 3.9 mmol/L (3.5-5.1); SGOT/AST 32 U/L (15-37); SGPT/ALT 27 U/L (13-61); SODIUM 135 mmol/L (136-145); TOT PROT 8.1 g/dl (6.4-8.2)
[2018-09-02] MEDS: DABIGATRAN ETEXILATE MESYLATE 150 MG CAPSULE PO SCH ×2 (09:26→21:44)
[2018-09-02] MEDS: ISOSORBIDE MONONITRATE 60 MG TAB.SR.24H (FP) PO SCH (09:26)
[2018-09-02] MEDS: POTASSIUM CHLORIDE TABS 20 MEQ TABLET.ER (FP) PO SCH (09:26)
[2018-09-02] MEDS: predniSONE 5 MG TABLET (UD) PO SCH (09:26)
[2018-09-02] MEDS: LISINOPRIL 5 MG TABLET (FP) PO SCH (09:26)
[2018-09-02] MEDS: MAGNESIUM OXIDE 400 MG TABLET (FP) PO SCH ×2 (09:26→21:44)
[2018-09-02] MEDS: POLYETHYLENE GLYCOL 3350 119 GM BTL PO SCH (09:27)
[2018-09-02] MEDS: FLUTICASONE/SALMETEROL 100 MCG/50 MCG DISKUS IH SCH ×2 (09:27→21:43)
[2018-09-02] MEDS: DIGOXIN 0.25 MG TABLET (FP) PO SCH (09:27)
--- NOTE | 2018-09-02 09:51 | PN ---
Progress Note, Physician History of Present Illness: seen and examined today in nad. no overnight events. still has cough and pleuritic chest pain from cough. - Current Medication List Current Medications: Active Medications Acetaminophen (Tylenol -) 650 mg PO Q6H PRN PRN Reason: PAIN OR FEVER Albuterol/Ipratropium (Duoneb -) 1 amp NEB Q6H PRN PRN Reason: SHORTNESS OF BREATH Atorvastatin Calcium (Lipitor -) 40 mg PO HS [facility] Last Admin: 09/01/18 21:07 Dose: 40 mg Dabigatran (Pradaxa -) 150 mg PO BID [facility] Last Admin: 09/02/18 09:26 Dose: 150 mg Digoxin (Lanoxin -) 0.25 mg PO DAILY [facility] Last Admin: 09/02/18 09:27 Dose: 0.25 mg Furosemide (Lasix Injection -) 40 mg IVPUSH BID@0600,1400 [facility] Last Admin: 09/02/18 06:01 Dose: 40 mg Hydrocortisone (Hytone 0.5% Ointment -) 1 applic TP BID PRN PRN Reason: DRY SKIN Last Admin: 09/01/18 12:59 Dose: 1 applic Insulin Aspart (Novolog Vial Sliding Scale -) 1 vial SQ ACHS [facility]; Protocol Last Admin: 09/02/18 05:59 Dose: Not Given Isosorbide Mononitrate (Imdur -) 60 mg PO DAILY [facility] Last Admin: 09/02/18 09:26 Dose: 60 mg Lisinopril (Prinivil) 2.5 mg PO DAILY [facility] Last Admin: 09/02/18 09:26 Dose: 2.5 mg Magnesium Oxide (Mag-Ox -) 400 mg PO BID [facility] Last Admin: 09/02/18 09:26 Dose: 400 mg Melatonin (Melatonin) 10 mg PO HS [facility] Last Admin: 09/01/18 21:07 Dose: 10 mg Metoprolol Succinate (Toprol Xl -) 50 mg PO DAILY [facility] Last Admin: 09/02/18 09:26 Dose: 50 mg Montelukast Sodium (Singulair -) 10 mg PO HS [facility] Last Admin: 09/01/18 21:07 Dose: 10 mg Polyethylene Glycol (Miralax (For Daily Use) -) 17 gm PO DAILY [facility] Last Admin: 09/02/18 09:27 Dose: Not Given Potassium Chloride (K-Dur -) 20 meq PO DAILY [facility] Last Admin: 09/02/18 09:26 Dose: 20 meq Prednisone (Deltasone -) 5 mg PO DAILY [facility] Last Admin: 09/02/18 09:26 Dose: 5 mg Fluticasone/Salmeterol (Advair 100mcg/50mcg -) 1 puff IH BID [facility] Last Admin: 09/02/18 09:27 Dose: 1 puff Senna (Senna -) 2 tab PO HS [facility] Last Admin: 09/01/18 21:07 Dose: 2 tab - Objective Vital Signs: Vital Signs Temperature 98.0 F 09/02/18 06:06 Pulse Rate 88 09/02/18 09:27 Respiratory Rate 20 09/02/18 08:21 Blood Pressure 138/68 09/02/18 08:21 O2 Sat by Pulse Oximetry (%) 97 09/02/18 07:27 Constitutional: Yes: No Distress, Calm Eyes: Yes: Conjunctiva Clear, EOM Intact, PERRL HENT: Yes: Atraumatic, Normocephalic Neck: Yes: Supple, Trachea Midline Cardiovascular: Yes: Pulse Irregular, S1, S2. No: Regular Rate and Rhythm, Bradycardia, Tachycardia, Bruit, JVD, Gallop, Murmur, Rub, S3, S4, Varicosities Respiratory: Yes: Regular, Diminished. No: Rales, Rhonchi, SOB, Wheezes Gastrointestinal: Yes: Normal Bowel Sounds, Soft. No: Distention, Tenderness Musculoskeletal: Yes: WNL Extremities: Yes: WNL Edema: Yes Edema: LLE: Trace, RLE: Trace Peripheral Pulses WNL: Yes Peripheral Pulses: Left Doralis Pedis: 2+, Right Dorsalis Pedis: 2+ Neurological: Yes: Alert, Oriented Psychiatric: Yes: Alert, Oriented Labs: CBC, BMP 08/30/18 05:30 09/02/18 05:30 INR, PTT INR 1.44 (0.83-1.09) H 08/29/18 15:14 - ....Imaging Chest X-ray: Report Reviewed, Image Reviewed EKG: Report Reviewed, Image Reviewed Other: Report Reviewed, Image Reviewed (tele-AF HR adequately controlled) Assessment/Plan 63 M [facility] EF 35%, chronic Afib, admitted with diarrhea and heart failure. 1. Afib: HR controlled on Metoprolol and digoxin Tolerating Pradaxa. 2. HFrEF Improving, still mildly volume overloaded Cont IV lasix for now (was on 80mg po bid at home) can plan to transition back to this dose or change to Torsemide Replace potassium and Magnesium
--- NOTE | 2018-09-02 11:14 | PN ---
Progress Note, Physician History of Present Illness: pulmonary alert,dyspneic with exertion,+ cough - Current Medication List Current Medications: Active Medications Acetaminophen (Tylenol -) 650 mg PO Q6H PRN PRN Reason: PAIN OR FEVER Albuterol/Ipratropium (Duoneb -) 1 amp NEB Q6H PRN PRN Reason: SHORTNESS OF BREATH Atorvastatin Calcium (Lipitor -) 40 mg PO [facility] Last Admin: 09/01/18 21:07 Dose: 40 mg Dabigatran (Pradaxa -) 150 mg PO BID [facility] Last Admin: 09/02/18 09:26 Dose: 150 mg Digoxin (Lanoxin -) 0.25 mg PO DAILY [facility] Last Admin: 09/02/18 09:27 Dose: 0.25 mg Furosemide (Lasix Injection -) 40 mg IVPUSH BID@0600,1400 [facility] Last Admin: 09/02/18 06:01 Dose: 40 mg Hydrocortisone (Hytone 0.5% Ointment -) 1 applic TP BID PRN PRN Reason: DRY SKIN Last Admin: 09/01/18 12:59 Dose: 1 applic Insulin Aspart (Novolog Vial Sliding Scale -) 1 vial SQ ACHS [facility]; Protocol Last Admin: 09/02/18 05:59 Dose: Not Given Isosorbide Mononitrate (Imdur -) 60 mg PO DAILY [facility] Last Admin: 09/02/18 09:26 Dose: 60 mg Lisinopril (Prinivil) 2.5 mg PO DAILY [facility] Last Admin: 09/02/18 09:26 Dose: 2.5 mg Magnesium Oxide (Mag-Ox -) 400 mg PO BID [facility] Last Admin: 09/02/18 09:26 Dose: 400 mg Melatonin (Melatonin) 10 mg PO [facility] Last Admin: 09/01/18 21:07 Dose: 10 mg Metoprolol Succinate (Toprol Xl -) 50 mg PO DAILY [facility] Last Admin: 09/02/18 09:26 Dose: 50 mg Montelukast Sodium (Singulair -) 10 mg PO [facility] Last Admin: 09/01/18 21:07 Dose: 10 mg Polyethylene Glycol (Miralax (For Daily Use) -) 17 gm PO DAILY [facility] Last Admin: 09/02/18 09:27 Dose: Not Given Potassium Chloride (K-Dur -) 20 meq PO DAILY [facility] Last Admin: 09/02/18 09:26 Dose: 20 meq Prednisone (Deltasone -) 5 mg PO DAILY [facility] Last Admin: 09/02/18 09:26 Dose: 5 mg Fluticasone/Salmeterol (Advair 100mcg/50mcg -) 1 puff IH BID [facility] Last Admin: 09/02/18 09:27 Dose: 1 puff Senna (Senna -) 2 tab PO HS [facility] Last Admin: 09/01/18 21:07 Dose: 2 tab - Objective Vital Signs: Vital Signs Temperature 98.0 F 09/02/18 06:06 Pulse Rate 88 09/02/18 09:27 Respiratory Rate 20 09/02/18 08:21 Blood Pressure 138/68 09/02/18 08:21 O2 Sat by Pulse Oximetry (%) 97 09/02/18 07:27 Constitutional: Yes: Well Nourished, Calm, Obese Eyes: Yes: WNL HENT: Yes: WNL Neck: Yes: WNL Cardiovascular: Yes: Pulse Irregular, S1, S2 Respiratory: Yes: Rales (bibasialr rales) Gastrointestinal: Yes: Normal Bowel Sounds, Soft Extremities: Yes: WNL Edema: Yes Labs: CBC, BMP 09/02/18 05:30 INR, PTT INR 1.44 (0.83-1.09) H 08/29/18 15:14 Problem List - Problems (1) CHF (congestive heart failure) Code(s): I50.9 - HEART FAILURE, UNSPECIFIED Qualifiers: Heart failure type: unspecified Heart failure chronicity: acute on chronic Qualified Code(s): I50.9 - Heart failure, unspecified (2) Atrial fibrillation Code(s): I48.91 - UNSPECIFIED ATRIAL FIBRILLATION Qualifiers: Atrial fibrillation type: persistent Qualified Code(s): I48.1 - Persistent atrial fibrillation (3) CAD (coronary artery disease) Code(s): I25.10 - ATHSCL HEART DISEASE OF [place] CORONARY ARTERY W/O ANG PCTRS Qualifiers: Coronary Disease-Associated Artery/Lesion type: [place] artery [place] vs. transplanted heart: [place] heart Associated angina: without angina Qualified Code(s): I25.10 - Atherosclerotic heart disease of [place] coronary artery without angina pectoris (4) CHF exacerbation Code(s): I50.9 - HEART FAILURE, UNSPECIFIED Qualifiers: Heart failure type: unspecified Qualified Code(s): I50.9 - Heart failure, unspecified (5) COPD (chronic obstructive pulmonary disease) Code(s): J44.9 - CHRONIC OBSTRUCTIVE PULMONARY DISEASE, UNSPECIFIED (6) Chest pain Code(s): R07.9 - CHEST PAIN, UNSPECIFIED Qualifiers: Chest pain type: unspecified Qualified Code(s): R07.9 - Chest pain, unspecified (7) Hypertension Code(s): I10 - ESSENTIAL (PRIMARY) HYPERTENSION Qualifiers: Hypertension type: essential hypertension Qualified Code(s): I10 - Essential (primary) hypertension (8) Shortness of breath Code(s): R06.02 - SHORTNESS OF BREATH (9) Pulmonary HTN Code(s): I27.20 - PULMONARY HYPERTENSION, UNSPECIFIED Assessment/Plan IMP DYSPNEA IMPROVING ACUTE ON CHRONIC SYSTOLIC CHF COPD PULMONARY HTN AFIB HTN DM OSAS AHI 38.1 BRONCHIECTASIS PLAN IV LASIX INHALED BRONCHODILATORS SUPPLEMENTAL O2 DAILY WT F/U CHEST X-RAYS FORMAL SLEEP STUDIES OUTPATIENT AC DEWAYNE TEJEDA Problem List - Problems (1) CHF (congestive heart failure) Code(s): I50.9 - HEART FAILURE, UNSPECIFIED Qualifiers: Heart failure type: unspecified Heart failure chronicity: acute on chronic Qualified Code(s): I50.9 - Heart failure, unspecified (2) Atrial fibrillation Code(s): I48.91 - UNSPECIFIED ATRIAL FIBRILLATION Qualifiers: Atrial fibrillation type: persistent Qualified Code(s): I48.1 - Persistent atrial fibrillation (3) CAD (coronary artery disease) Code(s): I25.10 - ATHSCL HEART DISEASE OF [place] CORONARY ARTERY W/O ANG PCTRS Qualifiers: Coronary Disease-Associated Artery/Lesion type: [place] artery [place] vs. transplanted heart: [place] heart Associated angina: without angina Qualified Code(s): I25.10 - Atherosclerotic heart disease of [place] coronary artery without angina pectoris (4) CHF exacerbation Code(s): I50.9 - HEART FAILURE, UNSPECIFIED Qualifiers: Heart failure type: unspecified Qualified Code(s): I50.9 - Heart failure, unspecified (5) COPD (chronic obstructive pulmonary disease) Code(s): J44.9 - CHRONIC OBSTRUCTIVE PULMONARY DISEASE, UNSPECIFIED (6) Chest pain Code(s): R07.9 - CHEST PAIN, UNSPECIFIED Qualifiers: Chest pain type: unspecified Qualified Code(s): R07.9 - Chest pain, unspecified (7) Hypertension Code(s): I10 - ESSENTIAL (PRIMARY) HYPERTENSION Qualifiers: Hypertension type: essential hypertension Qualified Code(s): I10 - Essential (primary) hypertension (8) Shortness of breath Code(s): R06.02 - SHORTNESS OF BREATH (9) Pulmonary HTN Code(s): I27.20 - PULMONARY HYPERTENSION, UNSPECIFIED
--- NOTE | 2018-09-02 11:59 | PN ---
Progress Note, Physician Chief Complaint: SOB CHF History of Present Illness: NAD Cough and SOB improved On IV diuresis - Current Medication List Current Medications: Active Medications Acetaminophen (Tylenol -) 650 mg PO Q6H PRN PRN Reason: PAIN OR FEVER Albuterol/Ipratropium (Duoneb -) 1 amp NEB Q6H PRN PRN Reason: SHORTNESS OF BREATH Atorvastatin Calcium (Lipitor -) 40 mg PO HS [facility] [place] Last Admin: 09/01/18 21:07 Dose: 40 mg Dabigatran (Pradaxa -) 150 mg PO BID [facility] Last Admin: 09/02/18 09:26 Dose: 150 mg Digoxin (Lanoxin -) 0.25 mg PO DAILY [facility] [place] Last Admin: 09/02/18 09:27 Dose: 0.25 mg Furosemide (Lasix Injection -) 40 mg IVPUSH BID@0600,1400 [facility] [place] Last Admin: 09/02/18 06:01 Dose: 40 mg Hydrocortisone (Hytone 0.5% Ointment -) 1 applic TP BID PRN PRN Reason: DRY SKIN Last Admin: 09/01/18 12:59 Dose: 1 applic Insulin Aspart (Novolog Vial Sliding Scale -) 1 vial SQ ACHS [facility] [place]; Protocol Last Admin: 09/02/18 05:59 Dose: Not Given Isosorbide Mononitrate (Imdur -) 60 mg PO DAILY [facility] [place] Last Admin: 09/02/18 09:26 Dose: 60 mg Lisinopril (Prinivil) 2.5 mg PO DAILY [facility] [place] Last Admin: 09/02/18 09:26 Dose: 2.5 mg Magnesium Oxide (Mag-Ox -) 400 mg PO BID [facility] Last Admin: 09/02/18 09:26 Dose: 400 mg Melatonin (Melatonin) 10 mg PO HS [facility] Last Admin: 09/01/18 21:07 Dose: 10 mg Metoprolol Succinate (Toprol Xl -) 50 mg PO DAILY [facility] [place] Last Admin: 09/02/18 09:26 Dose: 50 mg Montelukast Sodium (Singulair -) 10 mg PO HS [facility] Last Admin: 09/01/18 21:07 Dose: 10 mg Polyethylene Glycol (Miralax (For Daily Use) -) 17 gm PO DAILY [facility] [place] Last Admin: 09/02/18 09:27 Dose: Not Given Potassium Chloride (K-Dur -) 20 meq PO DAILY [facility] [place] Last Admin: 09/02/18 09:26 Dose: 20 meq Prednisone (Deltasone -) 5 mg PO DAILY [facility] Last Admin: 09/02/18 09:26 Dose: 5 mg Fluticasone/Salmeterol (Advair 100mcg/50mcg -) 1 puff IH BID [facility] [place] Last Admin: 09/02/18 09:27 Dose: 1 puff Senna (Senna -) 2 tab PO HS [facility] [place] Last Admin: 09/01/18 21:07 Dose: 2 tab - Objective Vital Signs: Vital Signs Temperature 98.0 F 09/02/18 06:06 Pulse Rate 88 09/02/18 09:27 Respiratory Rate 20 09/02/18 08:21 Blood Pressure 138/68 09/02/18 08:21 O2 Sat by Pulse Oximetry (%) 97 09/02/18 07:27 Constitutional: Yes: Well Nourished, No Distress, Calm, Obese Cardiovascular: Yes: Pulse Irregular Respiratory: Yes: On Nasal O2, SOB on Exertion Gastrointestinal: Yes: Normal Bowel Sounds, Soft, Abdomen, Obese Musculoskeletal: Yes: WNL Extremities: Yes: WNL Edema: Yes Edema: LLE: 2+, RLE: 2+ Peripheral Pulses WNL: Yes Neurological: Yes: Alert, Oriented Psychiatric: Yes: Alert, Oriented Labs: CBC, BMP 08/30/18 05:30 09/02/18 05:30 INR, PTT INR 1.44 (0.83-1.09) H 08/29/18 15:14 Problem List - Problems (1) Hypomagnesemia Assessment/Plan: -replenished -Repeat labs normal Mg level -Seen by cardiology Code(s): E83.42 - HYPOMAGNESEMIA (2) Atrial fibrillation Assessment/Plan: -Tele monitor -rate controlled -On BB and Digoxine -Seen by Cardiology Code(s): I48.91 - UNSPECIFIED ATRIAL FIBRILLATION Qualifiers: Atrial fibrillation type: persistent Qualified Code(s): I48.1 - Persistent atrial fibrillation (3) CHF exacerbation Assessment/Plan: -Furosemide IVP BID -Cardiology and pulmonary on board -daily weights -Fluid restriction to 1 L -Low sodium diet Code(s): I50.9 - HEART FAILURE, UNSPECIFIED Qualifiers: Heart failure type: unspecified Qualified Code(s): I50.9 - Heart failure, unspecified (4) COPD (chronic obstructive pulmonary disease) Assessment/Plan: -Nasal O2 PRN -Pulmonary on borad -On Prednisone 5 mg po daily -Bronchodilators Code(s): J44.9 - CHRONIC OBSTRUCTIVE PULMONARY DISEASE, UNSPECIFIED Assessment/Plan see problem list Self ambulatory Seen by Physical therapy
--- NOTE | 2018-09-02 13:51 | PN ---
Progress Note, Physician History of Present Illness: Pt seen and examined at bedside. He is awake and alert. He feels that his legs are improving. He still complains of shortness of breath. - Current Medication List Current Medications: Active Medications Acetaminophen (Tylenol -) 650 mg PO Q6H PRN PRN Reason: PAIN OR FEVER Albuterol/Ipratropium (Duoneb -) 1 amp NEB Q6H PRN PRN Reason: SHORTNESS OF BREATH Atorvastatin Calcium (Lipitor -) 40 mg PO HS [facility] Last Admin: 09/01/18 21:07 Dose: 40 mg Dabigatran (Pradaxa -) 150 mg PO BID [facility] Last Admin: 09/02/18 09:26 Dose: 150 mg Digoxin (Lanoxin -) 0.25 mg PO DAILY [facility] Last Admin: 09/02/18 09:27 Dose: 0.25 mg Furosemide (Lasix Injection -) 40 mg IVPUSH BID@0600,1400 [facility] Last Admin: 09/02/18 06:01 Dose: 40 mg Hydrocortisone (Hytone 0.5% Ointment -) 1 applic TP BID PRN PRN Reason: DRY SKIN Last Admin: 09/01/18 12:59 Dose: 1 applic Insulin Aspart (Novolog Vial Sliding Scale -) 1 vial SQ ACHS [facility]; Protocol Last Admin: 09/02/18 05:59 Dose: Not Given Isosorbide Mononitrate (Imdur -) 60 mg PO DAILY [facility] Last Admin: 09/02/18 09:26 Dose: 60 mg Lisinopril (Prinivil) 2.5 mg PO DAILY [facility] Last Admin: 09/02/18 09:26 Dose: 2.5 mg Magnesium Oxide (Mag-Ox -) 400 mg PO BID [facility] Last Admin: 09/02/18 09:26 Dose: 400 mg Melatonin (Melatonin) 10 mg PO [facility] Last Admin: 09/01/18 21:07 Dose: 10 mg Metoprolol Succinate (Toprol Xl -) 50 mg PO DAILY [facility] Last Admin: 09/02/18 09:26 Dose: 50 mg Montelukast Sodium (Singulair -) 10 mg PO HS [facility] Last Admin: 09/01/18 21:07 Dose: 10 mg Polyethylene Glycol (Miralax (For Daily Use) -) 17 gm PO DAILY [facility] Last Admin: 09/02/18 09:27 Dose: Not Given Potassium Chloride (K-Dur -) 20 meq PO DAILY [facility] Last Admin: 09/02/18 09:26 Dose: 20 meq Prednisone (Deltasone -) 5 mg PO DAILY [facility] Last Admin: 09/02/18 09:26 Dose: 5 mg Fluticasone/Salmeterol (Advair 100mcg/50mcg -) 1 puff IH BID [facility] Last Admin: 09/02/18 09:27 Dose: 1 puff Senna (Senna -) 2 tab PO HS [facility] Last Admin: 09/01/18 21:07 Dose: 2 tab - Objective Vital Signs: Vital Signs Temperature 98.0 F 09/02/18 06:06 Pulse Rate 88 09/02/18 09:27 Respiratory Rate 20 09/02/18 08:21 Blood Pressure 138/68 09/02/18 08:21 O2 Sat by Pulse Oximetry (%) 97 09/02/18 07:27 Constitutional: Yes: Calm Eyes: Yes: Conjunctiva Clear Cardiovascular: Yes: S1, S2 Respiratory: Yes: On Nasal O2 Gastrointestinal: Yes: Soft, Abdomen, Obese Genitourinary: Yes: WNL Musculoskeletal: Yes: WNL Edema: Yes Edema: LLE: 1+, RLE: 1+ Integumentary: Yes: Venous Stasis Changes Neurological: Yes: Oriented Psychiatric: Yes: Oriented Labs: CBC, BMP 08/30/18 05:30 09/02/18 05:30 INR, PTT INR 1.44 (0.83-1.09) H 08/29/18 15:14 Problem List - Problems (1) Hyponatremia Code(s): E87.1 - HYPO-OSMOLALITY AND HYPONATREMIA (2) CHF (congestive heart failure) Code(s): I50.9 - HEART FAILURE, UNSPECIFIED Qualifiers: Heart failure type: unspecified Heart failure chronicity: acute on chronic Qualified Code(s): I50.9 - Heart failure, unspecified Assessment/Plan Current Medications Generic Name Dose Route Start Last Admin Trade Name Freq PRN Reason Stop Dose Admin Acetaminophen 650 mg 08/29/18 19:46 Tylenol - PO Q6H PRN PAIN OR FEVER Albuterol/Ipratropium 1 amp 08/29/18 19:46 Duoneb - NEB Q6H PRN SHORTNESS OF BREATH Atorvastatin Calcium 40 mg 08/29/18 22:00 09/01/18 21:07 Lipitor - PO 40 mg HS [facility] Administration Dabigatran 150 mg 08/30/18 10:00 09/02/18 09:26 Pradaxa - PO 150 mg BID [facility] Administration Digoxin 0.25 mg 08/30/18 10:00 09/02/18 09:27 Lanoxin - PO 0.25 mg DAILY [facility] Administration Furosemide 40 mg 08/30/18 06:00 09/02/18 06:01 Lasix Injection - IVPUSH 40 mg BID@0600,1400 [facility] Administration Hydrocortisone 1 applic 08/30/18 20:52 09/01/18 12:59 Hytone 0.5% Ointment - TP 1 applic BID PRN Administration DRY SKIN Insulin Aspart 1 vial 08/29/18 22:00 09/02/18 05:59 Novolog Vial Sliding Scale - SQ Not Given ACHS [facility] Protocol Isosorbide Mononitrate 60 mg 08/30/18 10:00 09/02/18 09:26 Imdur - PO 60 mg DAILY [facility] Administration Lisinopril 2.5 mg 08/31/18 10:00 09/02/18 09:26 Prinivil PO 2.5 mg DAILY [facility] Administration Magnesium Oxide 400 mg 09/01/18 22:00 09/02/18 09:26 Mag-Ox - PO 400 mg BID [facility] Administration Melatonin 10 mg 08/29/18 22:00 09/01/18 21:07 Melatonin PO 10 mg HS [facility] Administration Metoprolol Succinate 50 mg 08/30/18 10:00 09/02/18 09:26 Toprol Xl - PO 50 mg DAILY [facility] Administration Montelukast Sodium 10 mg 08/29/18 22:00 09/01/18 21:07 Singulair - PO 10 mg HS [facility] Administration Polyethylene Glycol 17 gm 08/30/18 10:00 09/02/18 09:27 Miralax (For Daily Use) - PO Not Given DAILY [facility] Potassium Chloride 20 meq 08/30/18 10:00 09/02/18 09:26 K-Dur - PO 20 meq DAILY [facility] Administration Prednisone 5 mg 08/30/18 10:00 09/02/18 09:26 Deltasone - PO 5 mg DAILY [facility] Administration Fluticasone/Salmeterol 1 puff 08/29/18 22:00 09/02/18 09:27 Advair 100mcg/50mcg - IH 1 puff BID [facility] Administration Senna 2 tab 08/29/18 22:00 09/01/18 21:07 Senna - PO 2 tab HS [facility] Administration Impression 1. CHF 2. hyponatremia 3. hypomagnesemia 4. asthma 5. a-fib 6. DM Plan - cont lasix - monitor lytes - mag improved - check daily weights - will follow PRN Dr Domingo
--- NOTE | 2018-09-02 17:35 | ECHO ---
Name: COLTON HENSLEY Exam:Adult Echocardiogram Study Date: 09/02/2018 10:01 AM Age: 63 yrs Reason For Study: LOOK AT RIGHT HEART PRESSURE EF Height: 66 in Weight: 221 lb BSA: 2.1 m2 MMode/2D Measurements & Calculations IVSd: 0.84 cm Ao root diam: 2.7 cm LVIDd: 5.1 cm LA dimension: 4.3 cm LVIDs: 4.3 cm LVPWd: 0.79 cm EDV(Teich): 121.2 ml TAPSE: 2.4 cm ESV(Teich): 81.7 ml Doppler Measurements & Calculations MV V2 max: 160.7 cm/sec MV E max akbar: 120.4 cm/sec MV max P.3 mmHg MV A max akbar: 22.2 cm/sec MV V2 mean: 111.7 cm/sec MV E/A: 5.4 MV mean P.6 mmHg MV dec time: 0.23 sec MV V2 VTI: 36.2 cm Ao V2 max: 171.1 cm/sec LV V1 max P.0 mmHg Ao max P.7 mmHg LV V1 max: 50.3 cm/sec MR max akbar: 469.1 cm/sec TR max akbar: 255.1 cm/sec MR max P.2 mmHg TR max P.3 mmHg PI end-d akbar: 110.8 cm/sec Med Peak E' Akbar: 5.8 cm/sec Med E/e': 20.6 Lat Peak E' Akbar: 7.5 cm/sec Lat E/e': 16.0 Procedure A complete two-dimensional transthoracic echocardiogram was performed (2D, M-mode, Doppler and color flow Doppler). Left Ventricle The left ventricle is normal in size. Left ventricular systolic function is severely reduced. Ejectio n Fraction = 30%. The transmitral spectral Doppler flow pattern is suggestive of restrictive physiology . There is severe global hypokinesis of the left ventricle. Mitral Valve There is moderate mitral regurgitation. Tricuspid Valve There is mild tricuspid regurgitation. Right ventricular systolic pressure is elevated at 33 mmhg. Aortic Valve The aortic valve is normal in structure and function. Pulmonic Valve The pulmonic valve is not well visualized. Great Vessels The aortic root is normal size. Pericardium/Pleura There is no pericardial effusion. There is no pleural effusion. Interpretation Summary Left ventricular systolic function is severely reduced. There is severe global hypokinesis of the left ventricle. Ejection Fraction = 30%. There is moderate mitral regurgitation. There is mild tricuspid regurgitation. Right ventricular systolic pressure is elevated at 33 mmhg. MD Toribio Mix 09/02/2018 05:34 PM
[2018-09-02] MEDS ORDERED: INSULIN (NOVOLOG) ASPART 100 UNITS/ML 10ML VIAL ONE (21:10)
[2018-09-02] MEDS: MONTELUKAST NA 10 MG TABLET PO SCH (21:43)
[2018-09-02] MEDS: ATORVASTATIN CA 40 MG TABLET (FP) PO SCH (21:43)
[2018-09-02] MEDS: MELATONIN 5 MG TABLETS PO SCH (21:44)
[2018-09-02] MEDS: SENNOSIDES 8.6MG TABLET (FP) PO SCH (21:45)
[2018-09-03] MEDS: FUROSEMIDE 40 MG/4 ML INJECTABLE VIAL IVPUSH SCH ×2 (06:06→14:03)
[2018-09-03] MEDS: INSULIN SLIDING SCALE (NOVOLOG) 1 VIAL SQ SCH ×4 (06:06→21:15)
[2018-09-03 07:11] LABS: ANION GAP 7 MMOL/L (8-16); BLOOD UREA NITROGEN 21 mg/dL (7-18); CALCIUM 8.2 mg/dL (8.5-10.1); CHLORIDE 100 mmol/L (98-107); CO2 30 mmol/L (21-32); CREATININE 0.7 mg/dL (0.55-1.3); GLUCOSE,RANDOM 102 mg/dL (74-106); POTASSIUM 3.8 mmol/L (3.5-5.1); SODIUM 137 mmol/L (136-145)
[2018-09-03] MEDS: DABIGATRAN ETEXILATE MESYLATE 150 MG CAPSULE PO SCH ×2 (09:27→21:16)
[2018-09-03] MEDS: ACETAMINOPHEN 325 MG TABLET (FP) PO PRN ×2 (09:27→20:20)
[2018-09-03] MEDS: POTASSIUM CHLORIDE TABS 20 MEQ TABLET.ER (FP) PO SCH (09:28)
[2018-09-03] MEDS: predniSONE 5 MG TABLET (UD) PO SCH (09:28)
[2018-09-03] MEDS: ISOSORBIDE MONONITRATE 60 MG TAB.SR.24H (FP) PO SCH (09:28)
[2018-09-03] MEDS: LISINOPRIL 5 MG TABLET (FP) PO SCH (09:28)
[2018-09-03] MEDS: DIGOXIN 0.25 MG TABLET (FP) PO SCH (09:28)
[2018-09-03] MEDS: FLUTICASONE/SALMETEROL 100 MCG/50 MCG DISKUS IH SCH ×2 (09:29→21:15)
[2018-09-03] MEDS: MAGNESIUM OXIDE 400 MG TABLET (FP) PO SCH ×2 (09:29→21:16)
[2018-09-03] MEDS: POLYETHYLENE GLYCOL 3350 119 GM BTL PO SCH (09:29)
[2018-09-03] MEDS: ALBUTEROL SO4 2.5/IPRATROPIUM 0.5 INH SOL 3 ML VIAL.NEB. NEB PRN ×2 (10:30→14:56)
--- NOTE | 2018-09-03 11:06 | PN ---
Progress Note, Physician History of Present Illness: pulmonarry alert,less dyspneic,-cp,less cough - Current Medication List Current Medications: Active Medications Acetaminophen (Tylenol -) 650 mg PO Q6H PRN PRN Reason: PAIN OR FEVER Last Admin: 09/03/18 09:27 Dose: 650 mg Albuterol/Ipratropium (Duoneb -) 1 amp NEB Q6H PRN PRN Reason: SHORTNESS OF BREATH Atorvastatin Calcium (Lipitor -) 40 mg PO HS [facility] Last Admin: 09/02/18 21:43 Dose: 40 mg Dabigatran (Pradaxa -) 150 mg PO BID [facility] Last Admin: 09/03/18 09:27 Dose: 150 mg Digoxin (Lanoxin -) 0.25 mg PO DAILY [facility] Last Admin: 09/03/18 09:28 Dose: 0.25 mg Furosemide (Lasix Injection -) 40 mg IVPUSH BID@0600,1400 [facility] Last Admin: 09/03/18 06:06 Dose: 40 mg Hydrocortisone (Hytone 0.5% Ointment -) 1 applic TP BID PRN PRN Reason: DRY SKIN Last Admin: 09/01/18 12:59 Dose: 1 applic Insulin Aspart (Novolog Vial Sliding Scale -) 1 vial SQ ACHS [facility]; Protocol Last Admin: 09/03/18 06:06 Dose: Not Given Isosorbide Mononitrate (Imdur -) 60 mg PO DAILY [facility] Last Admin: 09/03/18 09:28 Dose: 60 mg Lisinopril (Prinivil) 2.5 mg PO DAILY [facility] Last Admin: 09/03/18 09:28 Dose: 2.5 mg Magnesium Oxide (Mag-Ox -) 400 mg PO BID [facility] Last Admin: 09/03/18 09:29 Dose: 400 mg Melatonin (Melatonin) 10 mg PO HS [facility] Last Admin: 09/02/18 21:44 Dose: 10 mg Metoprolol Succinate (Toprol Xl -) 50 mg PO DAILY [facility] Last Admin: 09/03/18 09:28 Dose: 50 mg Montelukast Sodium (Singulair -) 10 mg PO HS [facility] Last Admin: 09/02/18 21:43 Dose: 10 mg Polyethylene Glycol (Miralax (For Daily Use) -) 17 gm PO DAILY [facility] Last Admin: 09/03/18 09:29 Dose: Not Given Potassium Chloride (K-Dur -) 20 meq PO DAILY [facility] Last Admin: 09/03/18 09:28 Dose: 20 meq Prednisone (Deltasone -) 5 mg PO DAILY [facility] Last Admin: 09/03/18 09:28 Dose: 5 mg Fluticasone/Salmeterol (Advair 100mcg/50mcg -) 1 puff IH BID [facility] Last Admin: 09/03/18 09:29 Dose: 1 puff Senna (Senna -) 2 tab PO HS [facility] Last Admin: 09/02/18 21:45 Dose: Not Given - Objective Vital Signs: Vital Signs Temperature 98.2 F 09/03/18 06:00 Pulse Rate 86 09/03/18 09:28 Respiratory Rate 20 09/03/18 08:43 Blood Pressure 104/56 L 09/03/18 08:43 O2 Sat by Pulse Oximetry (%) 97 09/03/18 08:40 Constitutional: Yes: Well Nourished, Calm Eyes: Yes: WNL HENT: Yes: WNL Neck: Yes: WNL Cardiovascular: Yes: Pulse Irregular, S1, S2 Respiratory: Yes: Diminished Gastrointestinal: Yes: Normal Bowel Sounds, Soft Extremities: Yes: WNL Edema: Yes Labs: CBC, BMP 08/30/18 05:30 09/03/18 05:30 INR, PTT INR 1.44 (0.83-1.09) H 08/29/18 15:14 - ....Imaging Other: Other (echo severe lv systolic dysfunction,lvef 30%,+ pul htn) Problem List - Problems (1) CHF (congestive heart failure) Code(s): I50.9 - HEART FAILURE, UNSPECIFIED Qualifiers: Heart failure type: unspecified Heart failure chronicity: acute on chronic Qualified Code(s): I50.9 - Heart failure, unspecified (2) Atrial fibrillation Code(s): I48.91 - UNSPECIFIED ATRIAL FIBRILLATION Qualifiers: Atrial fibrillation type: persistent Qualified Code(s): I48.1 - Persistent atrial fibrillation (3) CAD (coronary artery disease) Code(s): I25.10 - ATHSCL HEART DISEASE OF [place] CORONARY ARTERY W/O ANG PCTRS Qualifiers: Coronary Disease-Associated Artery/Lesion type: [place] artery [place] vs. transplanted heart: [place] heart Associated angina: without angina Qualified Code(s): I25.10 - Atherosclerotic heart disease of [place] coronary artery without angina pectoris (4) CHF exacerbation Code(s): I50.9 - HEART FAILURE, UNSPECIFIED Qualifiers: Heart failure type: unspecified Qualified Code(s): I50.9 - Heart failure, unspecified (5) COPD (chronic obstructive pulmonary disease) Code(s): J44.9 - CHRONIC OBSTRUCTIVE PULMONARY DISEASE, UNSPECIFIED (6) Chest pain Code(s): R07.9 - CHEST PAIN, UNSPECIFIED Qualifiers: Chest pain type: unspecified Qualified Code(s): R07.9 - Chest pain, unspecified (7) Hypertension Code(s): I10 - ESSENTIAL (PRIMARY) HYPERTENSION Qualifiers: Hypertension type: essential hypertension Qualified Code(s): I10 - Essential (primary) hypertension (8) Shortness of breath Code(s): R06.02 - SHORTNESS OF BREATH (9) Pulmonary HTN Code(s): I27.20 - PULMONARY HYPERTENSION, UNSPECIFIED Assessment/Plan IMP DYSPNEA IMPROVING ACUTE ON CHRONIC SYSTOLIC CHF COPD PULMONARY HTN AFIB HTN DM OSAS AHI 38.1 BRONCHIECTASIS PLAN IV LASIX PER CARDIOLOGY INHALED BRONCHODILATORS SUPPLEMENTAL O2 DAILY WT F/U CHEST X-RAYS FORMAL SLEEP STUDIES OUTPATIENT AC DEWAYNE TEJEDA Problem List - Problems (1) CHF (congestive heart failure) Code(s): I50.9 - HEART FAILURE, UNSPECIFIED Qualifiers: Heart failure type: unspecified Heart failure chronicity: acute on chronic Qualified Code(s): I50.9 - Heart failure, unspecified (2) Atrial fibrillation Code(s): I48.91 - UNSPECIFIED ATRIAL FIBRILLATION Qualifiers: Atrial fibrillation type: persistent Qualified Code(s): I48.1 - Persistent atrial fibrillation (3) CAD (coronary artery disease) Code(s): I25.10 - ATHSCL HEART DISEASE OF [place] CORONARY ARTERY W/O ANG PCTRS Qualifiers: Coronary Disease-Associated Artery/Lesion type: [place] artery [place] vs. transplanted heart: [place] heart Associated angina: without angina Qualified Code(s): I25.10 - Atherosclerotic heart disease of [place] coronary artery without angina pectoris (4) CHF exacerbation Code(s): I50.9 - HEART FAILURE, UNSPECIFIED Qualifiers: Heart failure type: unspecified Qualified Code(s): I50.9 - Heart failure, unspecified (5) COPD (chronic obstructive pulmonary disease) Code(s): J44.9 - CHRONIC OBSTRUCTIVE PULMONARY DISEASE, UNSPECIFIED (6) Chest pain Code(s): R07.9 - CHEST PAIN, UNSPECIFIED Qualifiers: Chest pain type: unspecified Qualified Code(s): R07.9 - Chest pain, unspecified (7) Hypertension Code(s): I10 - ESSENTIAL (PRIMARY) HYPERTENSION Qualifiers: Hypertension type: essential hypertension Qualified Code(s): I10 - Essential (primary) hypertension (8) Shortness of breath Code(s): R06.02 - SHORTNESS OF BREATH (9) Pulmonary HTN Code(s): I27.20 - PULMONARY HYPERTENSION, UNSPECIFIED
--- NOTE | 2018-09-03 11:24 | PN ---
Progress Note, Physician History of Present Illness: Pt seen and examined at bedside. He feels that his breathing is improved. He is not using his oxygen. He is however eating chips that are salty. - Current Medication List Current Medications: Active Medications Acetaminophen (Tylenol -) 650 mg PO Q6H PRN PRN Reason: PAIN OR FEVER Last Admin: 09/03/18 09:27 Dose: 650 mg Albuterol/Ipratropium (Duoneb -) 1 amp NEB Q6H PRN PRN Reason: SHORTNESS OF BREATH Atorvastatin Calcium (Lipitor -) 40 mg PO HS [facility] Last Admin: 09/02/18 21:43 Dose: 40 mg Dabigatran (Pradaxa -) 150 mg PO BID [facility] Last Admin: 09/03/18 09:27 Dose: 150 mg Digoxin (Lanoxin -) 0.25 mg PO DAILY [facility] Last Admin: 09/03/18 09:28 Dose: 0.25 mg Furosemide (Lasix Injection -) 40 mg IVPUSH BID@0600,1400 [facility] Last Admin: 09/03/18 06:06 Dose: 40 mg Hydrocortisone (Hytone 0.5% Ointment -) 1 applic TP BID PRN PRN Reason: DRY SKIN Last Admin: 09/01/18 12:59 Dose: 1 applic Insulin Aspart (Novolog Vial Sliding Scale -) 1 vial SQ ACHS [facility]; Protocol Last Admin: 09/03/18 11:08 Dose: Not Given Isosorbide Mononitrate (Imdur -) 60 mg PO DAILY [facility] Last Admin: 09/03/18 09:28 Dose: 60 mg Lisinopril (Prinivil) 2.5 mg PO DAILY [facility] Last Admin: 09/03/18 09:28 Dose: 2.5 mg Magnesium Oxide (Mag-Ox -) 400 mg PO BID [facility] Last Admin: 09/03/18 09:29 Dose: 400 mg Melatonin (Melatonin) 10 mg PO HS [facility] Last Admin: 09/02/18 21:44 Dose: 10 mg Metoprolol Succinate (Toprol Xl -) 50 mg PO DAILY [facility] Last Admin: 09/03/18 09:28 Dose: 50 mg Montelukast Sodium (Singulair -) 10 mg PO HS [facility] Last Admin: 09/02/18 21:43 Dose: 10 mg Polyethylene Glycol (Miralax (For Daily Use) -) 17 gm PO DAILY [facility] Last Admin: 09/03/18 09:29 Dose: Not Given Potassium Chloride (K-Dur -) 20 meq PO DAILY [facility] Last Admin: 09/03/18 09:28 Dose: 20 meq Prednisone (Deltasone -) 5 mg PO DAILY [facility] Last Admin: 09/03/18 09:28 Dose: 5 mg Fluticasone/Salmeterol (Advair 100mcg/50mcg -) 1 puff IH BID [facility] Last Admin: 09/03/18 09:29 Dose: 1 puff Senna (Senna -) 2 tab PO HS [facility] Last Admin: 09/02/18 21:45 Dose: Not Given - Objective Vital Signs: Vital Signs Temperature 98.2 F 09/03/18 06:00 Pulse Rate 86 09/03/18 09:28 Respiratory Rate 20 09/03/18 08:43 Blood Pressure 104/56 L 09/03/18 08:43 O2 Sat by Pulse Oximetry (%) 97 09/03/18 08:40 Constitutional: Yes: Calm Eyes: Yes: Conjunctiva Clear Cardiovascular: Yes: S1, S2 Respiratory: Yes: Wheezes Gastrointestinal: Yes: Soft, Abdomen, Obese Genitourinary: Yes: WNL Musculoskeletal: Yes: WNL Edema: Yes Edema: LLE: 1+, RLE: 1+ Integumentary: Yes: Venous Stasis Changes Neurological: Yes: Oriented Psychiatric: Yes: Oriented Labs: CBC, BMP 08/30/18 05:30 09/03/18 05:30 INR, PTT INR 1.44 (0.83-1.09) H 08/29/18 15:14 Problem List - Problems (1) Hyponatremia Code(s): E87.1 - HYPO-OSMOLALITY AND HYPONATREMIA (2) CHF (congestive heart failure) Code(s): I50.9 - HEART FAILURE, UNSPECIFIED Qualifiers: Heart failure type: unspecified Heart failure chronicity: acute on chronic Qualified Code(s): I50.9 - Heart failure, unspecified Assessment/Plan Current Medications Generic Name Dose Route Start Last Admin Trade Name Freq PRN Reason Stop Dose Admin Acetaminophen 650 mg 08/29/18 19:46 09/03/18 09:27 Tylenol - PO 650 mg Q6H PRN Administration PAIN OR FEVER Albuterol/Ipratropium 1 amp 08/29/18 19:46 Duoneb - NEB Q6H PRN SHORTNESS OF BREATH Atorvastatin Calcium 40 mg 08/29/18 22:00 09/02/18 21:43 Lipitor - PO 40 mg HS [facility] Administration Dabigatran 150 mg 08/30/18 10:00 09/03/18 09:27 Pradaxa - PO 150 mg BID [facility] Administration Digoxin 0.25 mg 08/30/18 10:00 09/03/18 09:28 Lanoxin - PO 0.25 mg DAILY [facility] Administration Furosemide 40 mg 08/30/18 06:00 09/03/18 06:06 Lasix Injection - IVPUSH 40 mg BID@0600,1400 [facility] Administration Hydrocortisone 1 applic 08/30/18 20:52 09/01/18 12:59 Hytone 0.5% Ointment - TP 1 applic BID PRN Administration DRY SKIN Insulin Aspart 1 vial 08/29/18 22:00 09/03/18 11:08 Novolog Vial Sliding Scale - SQ Not Given ACHS [facility] Protocol Isosorbide Mononitrate 60 mg 08/30/18 10:00 09/03/18 09:28 Imdur - PO 60 mg DAILY [facility] Administration Lisinopril 2.5 mg 08/31/18 10:00 09/03/18 09:28 Prinivil PO 2.5 mg DAILY [facility] Administration Magnesium Oxide 400 mg 09/01/18 22:00 09/03/18 09:29 Mag-Ox - PO 400 mg BID [facility] Administration Melatonin 10 mg 08/29/18 22:00 09/02/18 21:44 Melatonin PO 10 mg HS [facility] Administration Metoprolol Succinate 50 mg 08/30/18 10:00 09/03/18 09:28 Toprol Xl - PO 50 mg DAILY [facility] Administration Montelukast Sodium 10 mg 08/29/18 22:00 09/02/18 21:43 Singulair - PO 10 mg HS [facility] Administration Polyethylene Glycol 17 gm 08/30/18 10:00 09/03/18 09:29 Miralax (For Daily Use) - PO Not Given DAILY [facility] Potassium Chloride 20 meq 08/30/18 10:00 09/03/18 09:28 K-Dur - PO 20 meq DAILY [facility] Administration Prednisone 5 mg 08/30/18 10:00 09/03/18 09:28 Deltasone - PO 5 mg DAILY [facility] Administration Fluticasone/Salmeterol 1 puff 08/29/18 22:00 09/03/18 09:29 Advair 100mcg/50mcg - IH 1 puff BID [facility] Administration Senna 2 tab 08/29/18 22:00 09/02/18 21:45 Senna - PO Not Given HS [facility] Impression 1. CHF 2. hyponatremia 3. hypomagnesemia 4. asthma 5. a-fib 6. DM Plan - pt is clinically improving - discussed low salt diet - cont diuretics - check daily weights - will follow PRN Dr Domingo
--- NOTE | 2018-09-03 16:05 | PN ---
Progress Note, Physician History of Present Illness: seen and examined in [facility]. no overnight events. no new complaints. - Current Medication List Current Medications: Active Medications Acetaminophen (Tylenol -) 650 mg PO Q6H PRN PRN Reason: PAIN OR FEVER Last Admin: 09/03/18 09:27 Dose: 650 mg Albuterol/Ipratropium (Duoneb -) 1 amp NEB Q6H PRN PRN Reason: SHORTNESS OF BREATH Last Admin: 09/03/18 14:56 Dose: 1 amp Atorvastatin Calcium (Lipitor -) 40 mg PO HS [facility] Last Admin: 09/02/18 21:43 Dose: 40 mg Dabigatran (Pradaxa -) 150 mg PO BID [facility] Last Admin: 09/03/18 09:27 Dose: 150 mg Digoxin (Lanoxin -) 0.25 mg PO DAILY [facility] Last Admin: 09/03/18 09:28 Dose: 0.25 mg Furosemide (Lasix Injection -) 40 mg IVPUSH BID@0600,1400 [facility] Last Admin: 09/03/18 14:03 Dose: 40 mg Hydrocortisone (Hytone 0.5% Ointment -) 1 applic TP BID PRN PRN Reason: DRY SKIN Last Admin: 09/01/18 12:59 Dose: 1 applic Insulin Aspart (Novolog Vial Sliding Scale -) 1 vial SQ ACHS [facility]; Protocol Last Admin: 09/03/18 11:08 Dose: Not Given Isosorbide Mononitrate (Imdur -) 60 mg PO DAILY [facility] Last Admin: 09/03/18 09:28 Dose: 60 mg Lisinopril (Prinivil) 2.5 mg PO DAILY [facility] Last Admin: 09/03/18 09:28 Dose: 2.5 mg Magnesium Oxide (Mag-Ox -) 400 mg PO BID [facility] Last Admin: 09/03/18 09:29 Dose: 400 mg Melatonin (Melatonin) 10 mg PO [facility] Last Admin: 09/02/18 21:44 Dose: 10 mg Metoprolol Succinate (Toprol Xl -) 50 mg PO DAILY [facility] Last Admin: 09/03/18 09:28 Dose: 50 mg Montelukast Sodium (Singulair -) 10 mg PO HS [facility] Last Admin: 09/02/18 21:43 Dose: 10 mg Polyethylene Glycol (Miralax (For Daily Use) -) 17 gm PO DAILY [facility] Last Admin: 09/03/18 09:29 Dose: Not Given Potassium Chloride (K-Dur -) 20 meq PO DAILY [facility] Last Admin: 09/03/18 09:28 Dose: 20 meq Prednisone (Deltasone -) 5 mg PO DAILY [facility] Last Admin: 09/03/18 09:28 Dose: 5 mg Fluticasone/Salmeterol (Advair 100mcg/50mcg -) 1 puff IH BID [facility] Last Admin: 09/03/18 09:29 Dose: 1 puff Senna (Senna -) 2 tab PO HS [facility] Last Admin: 09/02/18 21:45 Dose: Not Given - Objective Vital Signs: Vital Signs Temperature 97.2 F L 09/03/18 14:00 Pulse Rate 83 09/03/18 14:00 Respiratory Rate 20 09/03/18 14:00 Blood Pressure 156/62 09/03/18 14:00 O2 Sat by Pulse Oximetry (%) 97 09/03/18 08:40 Constitutional: Yes: No Distress, Calm Eyes: Yes: Conjunctiva Clear, EOM Intact, PERRL HENT: Yes: Atraumatic, Normocephalic Neck: Yes: Supple, Trachea Midline Cardiovascular: Yes: Pulse Irregular, S1, S2. No: Regular Rate and Rhythm, Bradycardia, Tachycardia, Bruit, JVD, Gallop, Murmur, Rub, S3, S4, Varicosities Respiratory: Yes: Regular, Diminished. No: Rales, Rhonchi, SOB, Wheezes Gastrointestinal: Yes: Normal Bowel Sounds, Soft. No: Distention, Tenderness Edema: LLE: Trace, RLE: Trace Peripheral Pulses WNL: Yes Neurological: Yes: Alert, Oriented Psychiatric: Yes: Alert, Oriented Labs: CBC, BMP 08/30/18 05:30 09/03/18 05:30 INR, PTT INR 1.44 (0.83-1.09) H 08/29/18 15:14 - ....Imaging Chest X-ray: Report Reviewed, Image Reviewed EKG: Report Reviewed, Image Reviewed Other: Report Reviewed, Image Reviewed (tele-AF, brief nsvt vs aberrancy) Assessment/Plan 63 M [facility] EF 35%, chronic Afib, admitted with diarrhea and heart failure. 1. Afib: HR controlled on Metoprolol and digoxin Tolerating Pradaxa. 2. HFrEF Improving, nearly euvolemic Would change Lasix back to home 80mg po bid Replace potassium and Magnesium No additional inpatient cardiac work up needed at this point. Pt is acceptable for discharge planning.
--- NOTE | 2018-09-03 18:44 | PN ---
Progress Note, Physician Chief Complaint: SOB CHF History of Present Illness: NAD Cough and SOB improved Furosemide changed to PO - Current Medication List Current Medications: Active Medications Acetaminophen (Tylenol -) 650 mg PO Q6H PRN PRN Reason: PAIN OR FEVER Last Admin: 09/03/18 09:27 Dose: 650 mg Albuterol/Ipratropium (Duoneb -) 1 amp NEB Q6H PRN PRN Reason: SHORTNESS OF BREATH Last Admin: 09/03/18 14:56 Dose: 1 amp Atorvastatin Calcium (Lipitor -) 40 mg PO HS [facility] Last Admin: 09/02/18 21:43 Dose: 40 mg Dabigatran (Pradaxa -) 150 mg PO BID [facility] Last Admin: 09/03/18 09:27 Dose: 150 mg Digoxin (Lanoxin -) 0.25 mg PO DAILY [facility] Last Admin: 09/03/18 09:28 Dose: 0.25 mg Furosemide (Lasix -) 80 mg PO BID@0600,1400 [facility] Hydrocortisone (Hytone 0.5% Ointment -) 1 applic TP BID PRN PRN Reason: DRY SKIN Last Admin: 09/01/18 12:59 Dose: 1 applic Insulin Aspart (Novolog Vial Sliding Scale -) 1 vial SQ [facility]; Protocol Last Admin: 09/03/18 16:35 Dose: Not Given Isosorbide Mononitrate (Imdur -) 60 mg PO DAILY [facility] Last Admin: 09/03/18 09:28 Dose: 60 mg Lisinopril (Prinivil) 2.5 mg PO DAILY [facility] Last Admin: 09/03/18 09:28 Dose: 2.5 mg Magnesium Oxide (Mag-Ox -) 400 mg PO BID [facility] Last Admin: 09/03/18 09:29 Dose: 400 mg Melatonin (Melatonin) 10 mg PO [facility] Last Admin: 09/02/18 21:44 Dose: 10 mg Metoprolol Succinate (Toprol Xl -) 50 mg PO DAILY [facility] Last Admin: 09/03/18 09:28 Dose: 50 mg Montelukast Sodium (Singulair -) 10 mg PO HS [facility] Last Admin: 09/02/18 21:43 Dose: 10 mg Polyethylene Glycol (Miralax (For Daily Use) -) 17 gm PO DAILY [facility] Last Admin: 09/03/18 09:29 Dose: Not Given Potassium Chloride (K-Dur -) 20 meq PO DAILY [facility] Last Admin: 09/03/18 09:28 Dose: 20 meq Prednisone (Deltasone -) 5 mg PO DAILY [facility] Last Admin: 09/03/18 09:28 Dose: 5 mg Fluticasone/Salmeterol (Advair 100mcg/50mcg -) 1 puff IH BID [facility] Last Admin: 09/03/18 09:29 Dose: 1 puff Senna (Senna -) 2 tab PO HS [facility] Last Admin: 09/02/18 21:45 Dose: Not Given - Objective Vital Signs: Vital Signs Temperature 97.4 F L 09/03/18 17:00 Pulse Rate 74 09/03/18 17:00 Respiratory Rate 20 09/03/18 17:00 Blood Pressure 140/78 09/03/18 17:00 O2 Sat by Pulse Oximetry (%) 97 09/03/18 08:40 Constitutional: Yes: Well Nourished, No Distress, Calm Cardiovascular: Yes: Regular Rate and Rhythm Respiratory: Yes: Regular Gastrointestinal: Yes: Normal Bowel Sounds, Soft Musculoskeletal: Yes: WNL Extremities: Yes: WNL Edema: Yes Edema: LLE: Trace, RLE: Trace Peripheral Pulses WNL: Yes Neurological: Yes: Alert, Oriented Psychiatric: Yes: Alert, Oriented Labs: CBC, BMP 08/30/18 05:30 09/03/18 05:30 INR, PTT INR 1.44 (0.83-1.09) H 08/29/18 15:14 Problem List - Problems (1) Hypomagnesemia Assessment/Plan: -replenished -Repeat labs normal Mg level -Seen by cardiology Code(s): E83.42 - HYPOMAGNESEMIA (2) Atrial fibrillation Assessment/Plan: -Tele monitor -rate controlled -On Pradaxa -On BB and Digoxin -Seen by Cardiology Code(s): I48.91 - UNSPECIFIED ATRIAL FIBRILLATION Qualifiers: Atrial fibrillation type: persistent Qualified Code(s): I48.1 - Persistent atrial fibrillation (3) CHF exacerbation Assessment/Plan: -Furosemide changed to 80 mg po BID -Cardiology and pulmonary on board -daily weights -Fluid restriction to 1 L -Low sodium diet Code(s): I50.9 - HEART FAILURE, UNSPECIFIED Qualifiers: Heart failure type: unspecified Qualified Code(s): I50.9 - Heart failure, unspecified (4) COPD (chronic obstructive pulmonary disease) Assessment/Plan: -Nasal O2 PRN -Pulmonary on borad -On Prednisone 5 mg po daily -Bronchodilators Code(s): J44.9 - CHRONIC OBSTRUCTIVE PULMONARY DISEASE, UNSPECIFIED Assessment/Plan see problem list Self ambulatory Seen by Physical therapy D/C in AM
[2018-09-03] MEDS: MONTELUKAST NA 10 MG TABLET PO SCH (21:16)
[2018-09-03] MEDS: SENNOSIDES 8.6MG TABLET (FP) PO SCH (21:16)
[2018-09-03] MEDS: ATORVASTATIN CA 40 MG TABLET (FP) PO SCH (21:16)
[2018-09-03] MEDS: MELATONIN 5 MG TABLETS PO SCH (21:16)
[2018-09-04] MEDS: ACETAMINOPHEN 325 MG TABLET (FP) PO PRN ×2 (01:34→20:06)
[2018-09-04] MEDS ORDERED: GABAPENTIN 300 MG CAPSULE (FP) PO ONE (03:42)
[2018-09-04] MEDS ORDERED: FUROSEMIDE 40 MG TABLET (FP) PO SCH ×2 (06:00→14:00)
[2018-09-04] MEDS: INSULIN SLIDING SCALE (NOVOLOG) 1 VIAL SQ SCH ×4 (06:01→21:52)
[2018-09-04] MEDS: ALBUTEROL SO4 2.5/IPRATROPIUM 0.5 INH SOL 3 ML VIAL.NEB. NEB PRN ×2 (08:18→20:45)
[2018-09-04] MEDS ORDERED: PT OWN MED DRAWER 7, Y5N ONE (08:44)
[2018-09-04] MEDS: DIGOXIN 0.25 MG TABLET (FP) PO SCH (09:29)
[2018-09-04] MEDS: DABIGATRAN ETEXILATE MESYLATE 150 MG CAPSULE PO SCH ×2 (09:29→21:51)
[2018-09-04] MEDS: predniSONE 5 MG TABLET (UD) PO SCH (09:29)
[2018-09-04] MEDS: LISINOPRIL 5 MG TABLET (FP) PO SCH (09:29)
[2018-09-04] MEDS: POTASSIUM CHLORIDE TABS 20 MEQ TABLET.ER (FP) PO SCH (09:29)
[2018-09-04] MEDS: MAGNESIUM OXIDE 400 MG TABLET (FP) PO SCH ×2 (09:30→21:51)
[2018-09-04] MEDS: ISOSORBIDE MONONITRATE 60 MG TAB.SR.24H (FP) PO SCH (09:30)
[2018-09-04] MEDS: FLUTICASONE/SALMETEROL 100 MCG/50 MCG DISKUS IH SCH ×2 (09:31→22:01)
[2018-09-04] MEDS: POLYETHYLENE GLYCOL 3350 119 GM BTL PO SCH (09:36)
--- NOTE | 2018-09-04 10:55 | PN ---
Progress Note, Physician History of Present Illness: pulmonary alert,c/o increased sob,cough,wheezes,cxhest discomfort - Current Medication List Current Medications: Active Medications Acetaminophen (Tylenol -) 650 mg PO Q6H PRN PRN Reason: PAIN OR FEVER Last Admin: 09/04/18 01:34 Dose: 650 mg Albuterol/Ipratropium (Duoneb -) 1 amp NEB Q6H PRN PRN Reason: SHORTNESS OF BREATH Last Admin: 09/04/18 08:18 Dose: 1 amp Atorvastatin Calcium (Lipitor -) 40 mg PO HS [facility] Last Admin: 09/03/18 21:16 Dose: 40 mg Dabigatran (Pradaxa -) 150 mg PO BID [facility] Last Admin: 09/04/18 09:29 Dose: 150 mg Digoxin (Lanoxin -) 0.25 mg PO DAILY [facility] Last Admin: 09/04/18 09:29 Dose: 0.25 mg Furosemide (Lasix -) 80 mg PO BID@0600,1400 [facility] Last Admin: 09/04/18 06:02 Dose: 80 mg Hydrocortisone (Hytone 0.5% Ointment -) 1 applic TP BID PRN PRN Reason: DRY SKIN Last Admin: 09/01/18 12:59 Dose: 1 applic Insulin Aspart (Novolog Vial Sliding Scale -) 1 vial SQ ACHS [facility]; Protocol Last Admin: 09/04/18 06:01 Dose: Not Given Isosorbide Mononitrate (Imdur -) 60 mg PO DAILY [facility] Last Admin: 09/04/18 09:30 Dose: 60 mg Lisinopril (Prinivil) 2.5 mg PO DAILY [facility] Last Admin: 09/04/18 09:29 Dose: 2.5 mg Magnesium Oxide (Mag-Ox -) 400 mg PO BID [facility] Last Admin: 09/04/18 09:30 Dose: 400 mg Melatonin (Melatonin) 10 mg PO HS [facility] Last Admin: 09/03/18 21:16 Dose: 10 mg Metoprolol Succinate (Toprol Xl -) 50 mg PO DAILY [facility] Last Admin: 09/04/18 09:30 Dose: 50 mg Montelukast Sodium (Singulair -) 10 mg PO HS [facility] Last Admin: 09/03/18 21:16 Dose: 10 mg Polyethylene Glycol (Miralax (For Daily Use) -) 17 gm PO DAILY [facility] Last Admin: 09/04/18 09:36 Dose: Not Given Potassium Chloride (K-Dur -) 20 meq PO DAILY [facility] Last Admin: 09/04/18 09:29 Dose: 20 meq Prednisone (Deltasone -) 5 mg PO DAILY [facility] Last Admin: 09/04/18 09:29 Dose: 5 mg Fluticasone/Salmeterol (Advair 100mcg/50mcg -) 1 puff IH BID [facility] Last Admin: 09/04/18 09:31 Dose: 1 puff Senna (Senna -) 2 tab PO HS [facility] Last Admin: 09/03/18 21:16 Dose: Not Given - Objective Vital Signs: Vital Signs Temperature 98 F 09/04/18 09:45 Pulse Rate 90 09/04/18 09:45 Respiratory Rate 18 09/04/18 09:45 Blood Pressure 122/82 09/04/18 09:45 O2 Sat by Pulse Oximetry (%) 97 09/03/18 21:00 Constitutional: Yes: Well Nourished, Calm Eyes: Yes: WNL HENT: Yes: WNL Neck: Yes: WNL Cardiovascular: Yes: Pulse Irregular, S1, S2 Respiratory: Yes: Rales (bilateral wheezes and crackles), Wheezes Gastrointestinal: Yes: Normal Bowel Sounds, Soft Extremities: Yes: WNL Edema: No Labs: CBC, BMP Problem List - Problems (1) CHF (congestive heart failure) Code(s): I50.9 - HEART FAILURE, UNSPECIFIED Qualifiers: Heart failure type: unspecified Heart failure chronicity: acute on chronic Qualified Code(s): I50.9 - Heart failure, unspecified (2) Atrial fibrillation Code(s): I48.91 - UNSPECIFIED ATRIAL FIBRILLATION Qualifiers: Atrial fibrillation type: persistent Qualified Code(s): I48.1 - Persistent atrial fibrillation (3) CAD (coronary artery disease) Code(s): I25.10 - ATHSCL HEART DISEASE OF [place] CORONARY ARTERY W/O ANG PCTRS Qualifiers: Coronary Disease-Associated Artery/Lesion type: [place] artery [place] vs. transplanted heart: [place] heart Associated angina: without angina Qualified Code(s): I25.10 - Atherosclerotic heart disease of [place] coronary artery without angina pectoris (4) CHF exacerbation Code(s): I50.9 - HEART FAILURE, UNSPECIFIED Qualifiers: Heart failure type: unspecified Qualified Code(s): I50.9 - Heart failure, unspecified (5) COPD (chronic obstructive pulmonary disease) Code(s): J44.9 - CHRONIC OBSTRUCTIVE PULMONARY DISEASE, UNSPECIFIED (6) Chest pain Code(s): R07.9 - CHEST PAIN, UNSPECIFIED Qualifiers: Chest pain type: unspecified Qualified Code(s): R07.9 - Chest pain, unspecified (7) Hypertension Code(s): I10 - ESSENTIAL (PRIMARY) HYPERTENSION Qualifiers: Hypertension type: essential hypertension Qualified Code(s): I10 - Essential (primary) hypertension (8) Shortness of breath Code(s): R06.02 - SHORTNESS OF BREATH (9) Pulmonary HTN Code(s): I27.20 - PULMONARY HYPERTENSION, UNSPECIFIED Assessment/Plan IMP DYSPNEA ACUTE ON CHRONIC SYSTOLIC CHF COPD PULMONARY HTN AFIB HTN DM OSAS AHI 38.1 BRONCHIECTASIS PLAN IV LASIX PER CARDIOLOGY INHALED BRONCHODILATORS SUPPLEMENTAL O2 DAILY WT F/U CHEST X-RAYS FORMAL SLEEP STUDIES OUTPATIENT AC DEWAYNE KAUR CHEST X-RAY MEDROL DR TEJEDA Problem List - Problems (1) CHF (congestive heart failure) Code(s): I50.9 - HEART FAILURE, UNSPECIFIED Qualifiers: Heart failure type: unspecified Heart failure chronicity: acute on chronic Qualified Code(s): I50.9 - Heart failure, unspecified (2) Atrial fibrillation Code(s): I48.91 - UNSPECIFIED ATRIAL FIBRILLATION Qualifiers: Atrial fibrillation type: persistent Qualified Code(s): I48.1 - Persistent atrial fibrillation (3) CAD (coronary artery disease) Code(s): I25.10 - ATHSCL HEART DISEASE OF [place] CORONARY ARTERY W/O ANG PCTRS Qualifiers: Coronary Disease-Associated Artery/Lesion type: [place] artery [place] vs. transplanted heart: [place] heart Associated angina: without angina Qualified Code(s): I25.10 - Atherosclerotic heart disease of [place] coronary artery without angina pectoris (4) CHF exacerbation Code(s): I50.9 - HEART FAILURE, UNSPECIFIED Qualifiers: Heart failure type: unspecified Qualified Code(s): I50.9 - Heart failure, unspecified (5) COPD (chronic obstructive pulmonary disease) Code(s): J44.9 - CHRONIC OBSTRUCTIVE PULMONARY DISEASE, UNSPECIFIED (6) Chest pain Code(s): R07.9 - CHEST PAIN, UNSPECIFIED Qualifiers: Chest pain type: unspecified Qualified Code(s): R07.9 - Chest pain, unspecified (7) Hypertension Code(s): I10 - ESSENTIAL (PRIMARY) HYPERTENSION Qualifiers: Hypertension type: essential hypertension Qualified Code(s): I10 - Essential (primary) hypertension (8) Shortness of breath Code(s): R06.02 - SHORTNESS OF BREATH (9) Pulmonary HTN Code(s): I27.20 - PULMONARY HYPERTENSION, UNSPECIFIED
--- NOTE | 2018-09-04 11:42 | PN ---
Progress Note, Physician Chief Complaint: patient complaining of difficulty breathing chest discomfort plan was to go home today- discharge cancelled- needs iv medrol and iv lasix - Current Medication List Current Medications: Active Medications Acetaminophen (Tylenol -) 650 mg PO Q6H PRN PRN Reason: PAIN OR FEVER Last Admin: 09/04/18 01:34 Dose: 650 mg Albuterol/Ipratropium (Duoneb -) 1 amp NEB Q6H PRN PRN Reason: SHORTNESS OF BREATH Last Admin: 09/04/18 08:18 Dose: 1 amp Atorvastatin Calcium (Lipitor -) 40 mg PO HS [facility] Last Admin: 09/03/18 21:16 Dose: 40 mg Dabigatran (Pradaxa -) 150 mg PO BID [facility] Last Admin: 09/04/18 09:29 Dose: 150 mg Digoxin (Lanoxin -) 0.25 mg PO DAILY [facility] Last Admin: 09/04/18 09:29 Dose: 0.25 mg Furosemide (Lasix Injection -) 40 mg IVPUSH BID@0600,1400 [facility] Hydrocortisone (Hytone 0.5% Ointment -) 1 applic TP BID PRN PRN Reason: DRY SKIN Last Admin: 09/01/18 12:59 Dose: 1 applic Insulin Aspart (Novolog Vial Sliding Scale -) 1 vial SQ ACHS [facility]; Protocol Last Admin: 09/04/18 06:01 Dose: Not Given Isosorbide Mononitrate (Imdur -) 60 mg PO DAILY [facility] Last Admin: 09/04/18 09:30 Dose: 60 mg Lisinopril (Prinivil) 2.5 mg PO DAILY [facility] Last Admin: 09/04/18 09:29 Dose: 2.5 mg Magnesium Oxide (Mag-Ox -) 400 mg PO BID [facility] Last Admin: 09/04/18 09:30 Dose: 400 mg Melatonin (Melatonin) 10 mg PO HS [facility] Last Admin: 09/03/18 21:16 Dose: 10 mg Methylprednisolone Sodium Succinate (Solu-Medrol -) 40 mg IVPUSH Q6H-IV [facility] Metoprolol Succinate (Toprol Xl -) 50 mg PO DAILY [facility] Last Admin: 09/04/18 09:30 Dose: 50 mg Montelukast Sodium (Singulair -) 10 mg PO HS [facility] Last Admin: 09/03/18 21:16 Dose: 10 mg Polyethylene Glycol (Miralax (For Daily Use) -) 17 gm PO DAILY [facility] Last Admin: 09/04/18 09:36 Dose: Not Given Potassium Chloride (K-Dur -) 20 meq PO DAILY [facility] Last Admin: 09/04/18 09:29 Dose: 20 meq Prednisone (Deltasone -) 5 mg PO DAILY [facility] Last Admin: 09/04/18 09:29 Dose: 5 mg Fluticasone/Salmeterol (Advair 100mcg/50mcg -) 1 puff IH BID [facility] Last Admin: 09/04/18 09:31 Dose: 1 puff Senna (Senna -) 2 tab PO HS [facility] Last Admin: 09/03/18 21:16 Dose: Not Given - Objective Vital Signs: Vital Signs Temperature 98 F 09/04/18 09:45 Pulse Rate 90 09/04/18 09:45 Respiratory Rate 18 09/04/18 09:45 Blood Pressure 122/82 09/04/18 09:45 O2 Sat by Pulse Oximetry (%) 97 09/03/18 21:00 Cardiovascular: Yes: Regular Rate and Rhythm, S1, S2 Respiratory: Yes: On Nasal O2, Wheezes Gastrointestinal: Yes: Normal Bowel Sounds, Soft Edema: Yes (improved) Neurological: Yes: Alert, Oriented Labs: CBC, BMP 08/30/18 05:30 09/03/18 05:30 INR, PTT INR 1.44 (0.83-1.09) H 08/29/18 15:14 Problem List - Problems (1) CHF (congestive heart failure) Assessment/Plan: lasix 80mg po bid- will change to lasix iv today- given still sob,wheezing imdur and prinivil global hypokinesis of left ventricle- ejection fraction severely reduced to 30% - echo cxr noted- no congestive changes Code(s): I50.9 - HEART FAILURE, UNSPECIFIED Qualifiers: Heart failure type: unspecified Heart failure chronicity: acute on chronic Qualified Code(s): I50.9 - Heart failure, unspecified (2) Atrial fibrillation Assessment/Plan: metoprolol and digoxin pradaxa Code(s): I48.91 - UNSPECIFIED ATRIAL FIBRILLATION Qualifiers: Atrial fibrillation type: persistent Qualified Code(s): I48.1 - Persistent atrial fibrillation (3) COPD (chronic obstructive pulmonary disease) Assessment/Plan: bronchodilators oxygen started on medrol iv 40mg q6hr- wheezing- dyspnea Code(s): J44.9 - CHRONIC OBSTRUCTIVE PULMONARY DISEASE, UNSPECIFIED (4) Electrolyte abnormality Assessment/Plan: repeat labs today Code(s): E87.8 - OTH DISORDERS OF ELECTROLYTE AND FLUID BALANCE, NEC
[2018-09-04] MEDS: methylPREDNISolone NA SUCC 40 MG/1 ML VIAL IVPUSH SCH ×3 (11:54→21:50)
[2018-09-04 12:27] LABS: BASO % 0.9 % (0-2.0); EOS % 3.2 % (0-4.5); HEMATOCRIT 40.7 % (35.4-49); HEMOGLOBIN 13.4 GM/dL (11.7-16.9); LYMPH % 11.9 % (8-40); MCH 29.7 pg (25.7-33.7); MEAN CELL VOLUME 89.8 fl (80-96); MEAN PLT VOLUME 9.6 fl (7.5-11.1); MONO % 9.5 % (3.8-10.2); NEUT % 74.5 % (42.8-82.8); PLATELET COUNT 231 K/MM3 (134-434); RBC 4.53 M/mm3 (4.00-5.60); RDW 16.9 % (11.9-15.9); WHITE BLOOD COUNT 8.9 K/mm3 (4.0-10.0)
[2018-09-04 13:21] LABS: ALBUMIN 3.1 g/dl (3.4-5.0); ALK PHOS 229 U/L (45-117); ANION GAP 11 MMOL/L (8-16); BILIRUBIN,TOTAL 0.9 mg/dL (0.2-1); BLOOD UREA NITROGEN 22 mg/dL (7-18); CALCIUM 8.4 mg/dL (8.5-10.1); CHLORIDE 100 mmol/L (98-107); CO2 28 mmol/L (21-32); CREATININE 0.6 mg/dL (0.55-1.3); GLUCOSE,RANDOM 126 mg/dL (74-106); MAGNESIUM 1.7 mg/dL (1.8-2.4); POTASSIUM 4.2 mmol/L (3.5-5.1); SGOT/AST 36 U/L (15-37); SGPT/ALT 34 U/L (13-61); SODIUM 139 mmol/L (136-145); TOT PROT 8.3 g/dl (6.4-8.2)
[2018-09-04] MEDS ORDERED: FUROSEMIDE 40 MG/4 ML INJECTABLE VIAL IVPUSH SCH (14:00)
[2018-09-04] MEDS: FUROSEMIDE 40 MG/4 ML INJECTABLE VIAL IVPUSH SCH (14:44)
[2018-09-04] MEDS ORDERED: MAGNESIUM SULF 50% (8.12 MEQ/2 ML-1 GM VIAL) IVPB ONE (15:30)
[2018-09-04] MEDS ORDERED: diphenhydrAMINE HCL 25 MG CAPSULE (FP) PO ONE (21:22)
[2018-09-04] MEDS ORDERED: guaiFENesin 200 MG/10 ML 10 ML UNIT-DOSE CUPS PO ONE (21:22)
[2018-09-04] MEDS: MELATONIN 5 MG TABLETS PO SCH (21:50)
[2018-09-04] MEDS: ATORVASTATIN CA 40 MG TABLET (FP) PO SCH (21:51)
[2018-09-04] MEDS: SENNOSIDES 8.6MG TABLET (FP) PO SCH (21:51)
[2018-09-04] MEDS: MONTELUKAST NA 10 MG TABLET PO SCH (21:51)
[2018-09-05] MEDS ORDERED: hydrOXYzine PAMOATE 25 MG CAPSULE (FP) PO ONE (02:26)
[2018-09-05] MEDS: methylPREDNISolone NA SUCC 40 MG/1 ML VIAL IVPUSH SCH ×3 (02:40→17:41)
[2018-09-05] MEDS: ALBUTEROL SO4 2.5/IPRATROPIUM 0.5 INH SOL 3 ML VIAL.NEB. NEB PRN ×4 (05:33→16:42)
[2018-09-05] MEDS: FUROSEMIDE 40 MG/4 ML INJECTABLE VIAL IVPUSH SCH ×2 (05:39→14:32)
[2018-09-05] MEDS: ACETAMINOPHEN 325 MG TABLET (FP) PO PRN (05:40)
[2018-09-05] MEDS: DABIGATRAN ETEXILATE MESYLATE 150 MG CAPSULE PO SCH ×2 (09:42→22:12)
[2018-09-05] MEDS: MAGNESIUM OXIDE 400 MG TABLET (FP) PO SCH ×2 (09:42→22:12)
[2018-09-05] MEDS: POTASSIUM CHLORIDE TABS 20 MEQ TABLET.ER (FP) PO SCH (09:43)
[2018-09-05] MEDS: DIGOXIN 0.25 MG TABLET (FP) PO SCH (09:43)
[2018-09-05] MEDS: ISOSORBIDE MONONITRATE 60 MG TAB.SR.24H (FP) PO SCH (09:43)
[2018-09-05] MEDS: LISINOPRIL 5 MG TABLET (FP) PO SCH (09:43)
--- NOTE | 2018-09-05 10:50 | PN ---
Progress Note, Physician Chief Complaint: patient complains chest pain when he breaths and he says he gets short of breath on exertion still coughing on iv lasix and iv medrol - Current Medication List Current Medications: Active Medications Acetaminophen (Tylenol -) 650 mg PO Q6H PRN PRN Reason: PAIN OR FEVER Last Admin: 09/05/18 05:40 Dose: 650 mg Albuterol/Ipratropium (Duoneb -) 1 amp NEB Q6H PRN PRN Reason: SHORTNESS OF BREATH Last Admin: 09/05/18 07:55 Dose: 1 amp Atorvastatin Calcium (Lipitor -) 40 mg PO HS [facility] Last Admin: 09/04/18 21:51 Dose: 40 mg Dabigatran (Pradaxa -) 150 mg PO BID [facility] Last Admin: 09/05/18 09:42 Dose: 150 mg Digoxin (Lanoxin -) 0.25 mg PO DAILY [facility] Last Admin: 09/05/18 09:43 Dose: 0.25 mg Furosemide (Lasix Injection -) 40 mg IVPUSH BID@0600,1400 [facility] Last Admin: 09/05/18 05:39 Dose: 40 mg Hydrocortisone (Hytone 0.5% Ointment -) 1 applic TP BID PRN PRN Reason: DRY SKIN Last Admin: 09/01/18 12:59 Dose: 1 applic Insulin Aspart (Novolog Vial Sliding Scale -) 1 vial SQ ACHS [facility]; Protocol Last Admin: 09/04/18 21:52 Dose: 8 units Isosorbide Mononitrate (Imdur -) 60 mg PO DAILY [facility] Last Admin: 09/05/18 09:43 Dose: 60 mg Lisinopril (Prinivil) 2.5 mg PO DAILY [facility] Last Admin: 09/05/18 09:43 Dose: 2.5 mg Magnesium Oxide (Mag-Ox -) 400 mg PO BID [facility] Last Admin: 09/05/18 09:42 Dose: 400 mg Melatonin (Melatonin) 10 mg PO HS [facility] Last Admin: 09/04/18 21:50 Dose: 10 mg Methylprednisolone Sodium Succinate (Solu-Medrol -) 40 mg IVPUSH Q6H-IV [facility] Last Admin: 09/05/18 09:42 Dose: 40 mg Metoprolol Succinate (Toprol Xl -) 50 mg PO DAILY [facility] Last Admin: 09/05/18 09:42 Dose: 50 mg Montelukast Sodium (Singulair -) 10 mg PO [facility] Last Admin: 09/04/18 21:51 Dose: 10 mg Polyethylene Glycol (Miralax (For Daily Use) -) 17 gm PO DAILY [facility] Last Admin: 09/04/18 09:36 Dose: Not Given Potassium Chloride (K-Dur -) 20 meq PO DAILY [facility] Last Admin: 09/05/18 09:43 Dose: 20 meq Prednisone (Deltasone -) 5 mg PO DAILY [facility] Last Admin: 09/04/18 09:29 Dose: 5 mg Fluticasone/Salmeterol (Advair 100mcg/50mcg -) 1 puff IH BID [facility] Last Admin: 09/04/18 22:01 Dose: 1 puff Senna (Senna -) 2 tab PO [facility] Last Admin: 09/04/18 21:51 Dose: 2 tab - Objective Vital Signs: Vital Signs Temperature 98 F 09/05/18 09:44 Pulse Rate 103 H 09/05/18 09:44 Respiratory Rate 20 09/05/18 09:44 Blood Pressure 138/68 09/05/18 09:44 O2 Sat by Pulse Oximetry (%) 97 09/04/18 21:00 Cardiovascular: Yes: Regular Rate and Rhythm, S1, S2 Respiratory: Yes: Rhonchi (scattered) Gastrointestinal: Yes: Normal Bowel Sounds, Soft Edema: Yes (trace) Neurological: Yes: Alert, Oriented Labs: CBC, BMP 09/04/18 12:05 INR, PTT INR 1.44 (0.83-1.09) H 08/29/18 15:14 Problem List - Problems (1) COPD (chronic obstructive pulmonary disease) Assessment/Plan: bronchodilators oxygen started on medrol iv 40mg q6hr- wheezing- dyspnea Code(s): J44.9 - CHRONIC OBSTRUCTIVE PULMONARY DISEASE, UNSPECIFIED (2) CHF (congestive heart failure) Assessment/Plan: patient on iv lasix bid once imdur and prinivil global hypokinesis of left ventricle- ejection fraction severely reduced to 30% - echo Code(s): I50.9 - HEART FAILURE, UNSPECIFIED Qualifiers: Heart failure type: unspecified Heart failure chronicity: acute on chronic Qualified Code(s): I50.9 - Heart failure, unspecified (3) Atrial fibrillation Assessment/Plan: metoprolol and digoxin pradaxa Code(s): I48.91 - UNSPECIFIED ATRIAL FIBRILLATION Qualifiers: Atrial fibrillation type: persistent Qualified Code(s): I48.1 - Persistent atrial fibrillation (4) Electrolyte abnormality Assessment/Plan: repeat labs today- pending awaiting magnesium level Code(s): E87.8 - OTH DISORDERS OF ELECTROLYTE AND FLUID BALANCE, NEC
[2018-09-05 11:14] LABS: ANION GAP 13 MMOL/L (8-16); BLOOD UREA NITROGEN 33 mg/dL (7-18); CALCIUM 8.5 mg/dL (8.5-10.1); CHLORIDE 96 mmol/L (98-107); CO2 27 mmol/L (21-32); CREATININE 0.9 mg/dL (0.55-1.3); MAGNESIUM 1.8 mg/dL (1.8-2.4); SODIUM 136 mmol/L (136-145)
[2018-09-05 11:16] LABS: GLUCOSE,RANDOM 330 mg/dL (74-106)
[2018-09-05] MEDS: INSULIN SLIDING SCALE (NOVOLOG) 1 VIAL SQ SCH ×3 (11:54→22:35)
[2018-09-05] MEDS: FLUTICASONE/SALMETEROL 100 MCG/50 MCG DISKUS IH SCH ×2 (11:54→22:12)
--- NOTE | 2018-09-05 12:29 | PN ---
Progress Note, Physician History of Present Illness: pulmonary alert,still c/o sob,congestion,chest discomfort - Current Medication List Current Medications: Active Medications Acetaminophen (Tylenol -) 650 mg PO Q6H PRN PRN Reason: PAIN OR FEVER Last Admin: 09/05/18 05:40 Dose: 650 mg Albuterol/Ipratropium (Duoneb -) 1 amp NEB Q6H PRN PRN Reason: SHORTNESS OF BREATH Last Admin: 09/05/18 11:12 Dose: 1 amp Atorvastatin Calcium (Lipitor -) 40 mg PO HS [facility] Last Admin: 09/04/18 21:51 Dose: 40 mg Dabigatran (Pradaxa -) 150 mg PO BID [facility] Last Admin: 09/05/18 09:42 Dose: 150 mg Digoxin (Lanoxin -) 0.25 mg PO DAILY [facility] Last Admin: 09/05/18 09:43 Dose: 0.25 mg Furosemide (Lasix Injection -) 40 mg IVPUSH BID@0600,1400 [facility] Last Admin: 09/05/18 05:39 Dose: 40 mg Guaifenesin (Robitussin -) 10 ml PO Q6H PRN PRN Reason: COUGH Hydrocortisone (Hytone 0.5% Ointment -) 1 applic TP BID PRN PRN Reason: DRY SKIN Last Admin: 09/01/18 12:59 Dose: 1 applic Insulin Aspart (Novolog Vial Sliding Scale -) 1 vial SQ ACHS [facility]; Protocol Last Admin: 09/05/18 11:54 Dose: 6 units Isosorbide Mononitrate (Imdur -) 60 mg PO DAILY [facility] Last Admin: 09/05/18 09:43 Dose: 60 mg Lisinopril (Prinivil) 2.5 mg PO DAILY [facility] Last Admin: 09/05/18 09:43 Dose: 2.5 mg Magnesium Oxide (Mag-Ox -) 400 mg PO BID [facility] Last Admin: 09/05/18 09:42 Dose: 400 mg Melatonin (Melatonin) 10 mg PO HS [facility] Last Admin: 09/04/18 21:50 Dose: 10 mg Methylprednisolone Sodium Succinate (Solu-Medrol -) 40 mg IVPUSH Q6H-IV [facility] Last Admin: 09/05/18 09:42 Dose: 40 mg Metoprolol Succinate (Toprol Xl -) 50 mg PO DAILY [facility] Last Admin: 09/05/18 09:42 Dose: 50 mg Montelukast Sodium (Singulair -) 10 mg PO HS [facility] Last Admin: 09/04/18 21:51 Dose: 10 mg Polyethylene Glycol (Miralax (For Daily Use) -) 17 gm PO DAILY [facility] Last Admin: 09/04/18 09:36 Dose: Not Given Potassium Chloride (K-Dur -) 20 meq PO DAILY [facility] Last Admin: 09/05/18 09:43 Dose: 20 meq Prednisone (Deltasone -) 5 mg PO DAILY [facility] Last Admin: 09/04/18 09:29 Dose: 5 mg Fluticasone/Salmeterol (Advair 100mcg/50mcg -) 1 puff IH BID [facility] Last Admin: 09/05/18 11:54 Dose: 1 puff Senna (Senna -) 2 tab PO [facility] Last Admin: 09/04/18 21:51 Dose: 2 tab - Objective Vital Signs: Vital Signs Temperature 98 F 09/05/18 09:44 Pulse Rate 103 H 09/05/18 09:44 Respiratory Rate 20 09/05/18 09:44 Blood Pressure 138/68 09/05/18 09:44 O2 Sat by Pulse Oximetry (%) 97 09/04/18 21:00 Constitutional: Yes: Well Nourished, Calm Eyes: Yes: WNL HENT: Yes: WNL Neck: Yes: WNL Cardiovascular: Yes: Pulse Irregular, S1, S2 Respiratory: Yes: Rales (bilateral wheezes and crackles), Wheezes Gastrointestinal: Yes: Normal Bowel Sounds, Soft Extremities: Yes: WNL Edema: Yes Labs: CBC, BMP 09/05/18 10:30 INR, PTT INR 1.44 (0.83-1.09) H 08/29/18 15:14 Problem List - Problems (1) CHF (congestive heart failure) Code(s): I50.9 - HEART FAILURE, UNSPECIFIED Qualifiers: Heart failure type: unspecified Heart failure chronicity: acute on chronic Qualified Code(s): I50.9 - Heart failure, unspecified (2) Atrial fibrillation Code(s): I48.91 - UNSPECIFIED ATRIAL FIBRILLATION Qualifiers: Atrial fibrillation type: persistent Qualified Code(s): I48.1 - Persistent atrial fibrillation (3) CAD (coronary artery disease) Code(s): I25.10 - ATHSCL HEART DISEASE OF [place] CORONARY ARTERY W/O ANG PCTRS Qualifiers: Coronary Disease-Associated Artery/Lesion type: [place] artery [place] vs. transplanted heart: [place] heart Associated angina: without angina Qualified Code(s): I25.10 - Atherosclerotic heart disease of [place] coronary artery without angina pectoris (4) CHF exacerbation Code(s): I50.9 - HEART FAILURE, UNSPECIFIED Qualifiers: Heart failure type: unspecified Qualified Code(s): I50.9 - Heart failure, unspecified (5) COPD (chronic obstructive pulmonary disease) Code(s): J44.9 - CHRONIC OBSTRUCTIVE PULMONARY DISEASE, UNSPECIFIED (6) Chest pain Code(s): R07.9 - CHEST PAIN, UNSPECIFIED Qualifiers: Chest pain type: unspecified Qualified Code(s): R07.9 - Chest pain, unspecified (7) Hypertension Code(s): I10 - ESSENTIAL (PRIMARY) HYPERTENSION Qualifiers: Hypertension type: essential hypertension Qualified Code(s): I10 - Essential (primary) hypertension (8) Shortness of breath Code(s): R06.02 - SHORTNESS OF BREATH (9) Pulmonary HTN Code(s): I27.20 - PULMONARY HYPERTENSION, UNSPECIFIED Assessment/Plan IMP DYSPNEA ACUTE ON CHRONIC SYSTOLIC CHF COPD PULMONARY HTN AFIB HTN DM OSAS AHI 38.1 BRONCHIECTASIS PLAN IV LASIX PER CARDIOLOGY INHALED BRONCHODILATORS SUPPLEMENTAL O2 DAILY WT F/U CHEST X-RAYS FORMAL SLEEP STUDIES OUTPATIENT AC REPLETE LYTES CHEST X-RAY MEDROL Q8 DR TEJEDA Problem List - Problems (1) CHF (congestive heart failure) Code(s): I50.9 - HEART FAILURE, UNSPECIFIED Qualifiers: Heart failure type: unspecified Heart failure chronicity: acute on chronic Qualified Code(s): I50.9 - Heart failure, unspecified (2) Atrial fibrillation Code(s): I48.91 - UNSPECIFIED ATRIAL FIBRILLATION Qualifiers: Atrial fibrillation type: persistent Qualified Code(s): I48.1 - Persistent atrial fibrillation (3) CAD (coronary artery disease) Code(s): I25.10 - ATHSCL HEART DISEASE OF [place] CORONARY ARTERY W/O ANG PCTRS Qualifiers: Coronary Disease-Associated Artery/Lesion type: [place] artery [place] vs. transplanted heart: [place] heart Associated angina: without angina Qualified Code(s): I25.10 - Atherosclerotic heart disease of [place] coronary artery without angina pectoris (4) CHF exacerbation Code(s): I50.9 - HEART FAILURE, UNSPECIFIED Qualifiers: Heart failure type: unspecified Qualified Code(s): I50.9 - Heart failure, unspecified (5) COPD (chronic obstructive pulmonary disease) Code(s): J44.9 - CHRONIC OBSTRUCTIVE PULMONARY DISEASE, UNSPECIFIED (6) Chest pain Code(s): R07.9 - CHEST PAIN, UNSPECIFIED Qualifiers: Chest pain type: unspecified Qualified Code(s): R07.9 - Chest pain, unspecified (7) Hypertension Code(s): I10 - ESSENTIAL (PRIMARY) HYPERTENSION Qualifiers: Hypertension type: essential hypertension Qualified Code(s): I10 - Essential (primary) hypertension (8) Shortness of breath Code(s): R06.02 - SHORTNESS OF BREATH (9) Pulmonary HTN Code(s): I27.20 - PULMONARY HYPERTENSION, UNSPECIFIED
[2018-09-05] MEDS: POLYETHYLENE GLYCOL 3350 119 GM BTL PO SCH (14:32)
[2018-09-05] MEDS: predniSONE 5 MG TABLET (UD) PO SCH (14:33)
--- NOTE | 2018-09-05 15:33 | PN ---
Progress Note (short form) - Note Progress Note: start po lasix 80mg po bid starting tmw and medrol q8hr Problem List - Problems (1) COPD (chronic obstructive pulmonary disease) Code(s): J44.9 - CHRONIC OBSTRUCTIVE PULMONARY DISEASE, UNSPECIFIED (2) CHF (congestive heart failure) Code(s): I50.9 - HEART FAILURE, UNSPECIFIED Qualifiers: Heart failure type: unspecified Heart failure chronicity: acute on chronic Qualified Code(s): I50.9 - Heart failure, unspecified (3) Atrial fibrillation Code(s): I48.91 - UNSPECIFIED ATRIAL FIBRILLATION Qualifiers: Atrial fibrillation type: persistent Qualified Code(s): I48.1 - Persistent atrial fibrillation (4) Electrolyte abnormality Code(s): E87.8 - OTH DISORDERS OF ELECTROLYTE AND FLUID BALANCE, NEC
[2018-09-05] MEDS: NYSTATIN 100,000 UNIT/GM TOPICAL CREAM 15 GM TUBE TP SCH (22:12)
[2018-09-05] MEDS: MELATONIN 5 MG TABLETS PO SCH (22:12)
[2018-09-05] MEDS: ATORVASTATIN CA 40 MG TABLET (FP) PO SCH (22:12)
[2018-09-05] MEDS: SENNOSIDES 8.6MG TABLET (FP) PO SCH (22:12)
[2018-09-05] MEDS: MONTELUKAST NA 10 MG TABLET PO SCH (22:12)
[2018-09-06] MEDS: methylPREDNISolone NA SUCC 40 MG/1 ML VIAL IVPUSH SCH ×4 (03:34→23:04)
[2018-09-06] MEDS: guaiFENesin 200 MG/10 ML 10 ML UNIT-DOSE CUPS PO PRN ×2 (03:41→09:01)
[2018-09-06] MEDS: FUROSEMIDE 40 MG TABLET (FP) PO SCH ×2 (06:22→13:39)
[2018-09-06] MEDS: INSULIN SLIDING SCALE (NOVOLOG) 1 VIAL SQ SCH ×4 (06:22→23:02)
[2018-09-06] MEDS: FLUTICASONE/SALMETEROL 100 MCG/50 MCG DISKUS IH SCH ×2 (09:01→23:02)
[2018-09-06] MEDS: ACETAMINOPHEN 325 MG TABLET (FP) PO PRN (09:01)
[2018-09-06] MEDS: ISOSORBIDE MONONITRATE 60 MG TAB.SR.24H (FP) PO SCH (09:03)
[2018-09-06] MEDS: DABIGATRAN ETEXILATE MESYLATE 150 MG CAPSULE PO SCH ×2 (09:03→23:04)
[2018-09-06] MEDS: LISINOPRIL 5 MG TABLET (FP) PO SCH (09:03)
[2018-09-06] MEDS: POTASSIUM CHLORIDE TABS 20 MEQ TABLET.ER (FP) PO SCH (09:03)
[2018-09-06] MEDS: DIGOXIN 0.25 MG TABLET (FP) PO SCH (09:03)
[2018-09-06] MEDS: MAGNESIUM OXIDE 400 MG TABLET (FP) PO SCH ×2 (09:04→23:03)
--- NOTE | 2018-09-06 09:04 | PN ---
Progress Note, Physician Chief Complaint: SOB CHF History of Present Illness: NAD Cough and SOB improved IV Furosemide On IV Medrol Blood sugars rising 2/2 to medrol On Insulin sliding scale - Current Medication List Current Medications: Active Medications Acetaminophen (Tylenol -) 650 mg PO Q6H PRN PRN Reason: PAIN OR FEVER Last Admin: 09/05/18 05:40 Dose: 650 mg Albuterol/Ipratropium (Duoneb -) 1 amp NEB Q6H PRN PRN Reason: SHORTNESS OF BREATH Last Admin: 09/05/18 16:42 Dose: 1 amp Atorvastatin Calcium (Lipitor -) 40 mg PO HS [facility] Last Admin: 09/05/18 22:12 Dose: 40 mg Dabigatran (Pradaxa -) 150 mg PO BID [facility] Last Admin: 09/05/18 22:12 Dose: 150 mg Digoxin (Lanoxin -) 0.25 mg PO DAILY [facility] Last Admin: 09/05/18 09:43 Dose: 0.25 mg Furosemide (Lasix -) 80 mg PO BID@0600,1400 [facility] Last Admin: 09/06/18 06:22 Dose: 80 mg Guaifenesin (Robitussin -) 10 ml PO Q6H PRN PRN Reason: COUGH Last Admin: 09/06/18 03:41 Dose: 10 ml Hydrocortisone (Hytone 0.5% Ointment -) 1 applic TP BID PRN PRN Reason: DRY SKIN Last Admin: 09/01/18 12:59 Dose: 1 applic Insulin Aspart (Novolog Vial Sliding Scale -) 1 vial SQ [facility]; Protocol Last Admin: 09/06/18 06:22 Dose: 4 units Isosorbide Mononitrate (Imdur -) 60 mg PO DAILY [facility] Last Admin: 09/05/18 09:43 Dose: 60 mg Lisinopril (Prinivil) 2.5 mg PO DAILY [facility] Last Admin: 09/05/18 09:43 Dose: 2.5 mg Magnesium Oxide (Mag-Ox -) 400 mg PO BID [facility] Last Admin: 09/05/18 22:12 Dose: 400 mg Melatonin (Melatonin) 10 mg PO HS [facility] Last Admin: 09/05/18 22:12 Dose: 10 mg Methylprednisolone Sodium Succinate (Solu-Medrol -) 40 mg IVPUSH Q8H-IV [facility] Last Admin: 09/06/18 03:34 Dose: 40 mg Metoprolol Succinate (Toprol Xl -) 50 mg PO DAILY [facility] Last Admin: 09/05/18 09:42 Dose: 50 mg Montelukast Sodium (Singulair -) 10 mg PO HS [facility] Last Admin: 09/05/18 22:12 Dose: 10 mg Nystatin (Mycostatin Cream -) 1 applic TP BID [facility] Last Admin: 09/05/18 22:12 Dose: 1 applic Polyethylene Glycol (Miralax (For Daily Use) -) 17 gm PO DAILY [facility] Last Admin: 09/05/18 14:32 Dose: Not Given Potassium Chloride (K-Dur -) 20 meq PO DAILY [facility] Last Admin: 09/05/18 09:43 Dose: 20 meq Fluticasone/Salmeterol (Advair 100mcg/50mcg -) 1 puff IH BID [facility] Last Admin: 09/05/18 22:12 Dose: 1 puff Senna (Senna -) 2 tab PO HS [facility] Last Admin: 09/05/18 22:12 Dose: 2 tab - Objective Vital Signs: Vital Signs Temperature 98.2 F 09/06/18 06:00 Pulse Rate 97 H 09/06/18 06:00 Respiratory Rate 20 09/06/18 06:00 Blood Pressure 130/80 09/06/18 06:00 O2 Sat by Pulse Oximetry (%) 95 09/05/18 21:00 Constitutional: Yes: Well Nourished, No Distress, Calm Cardiovascular: Yes: Regular Rate and Rhythm Respiratory: Yes: Regular, Cough, SOB on Exertion Gastrointestinal: Yes: Normal Bowel Sounds, Soft Musculoskeletal: Yes: WNL Extremities: Yes: WNL Edema: Yes Edema: LLE: Trace, RLE: Trace Peripheral Pulses WNL: Yes Neurological: Yes: Alert, Oriented Psychiatric: Yes: Alert, Oriented Labs: CBC, BMP 09/04/18 12:05 09/05/18 10:30 INR, PTT INR 1.44 (0.83-1.09) H 08/29/18 15:14 Problem List - Problems (1) Hypomagnesemia Assessment/Plan: -replenished -Repeat labs normal Mg level -Seen by cardiology Code(s): E83.42 - HYPOMAGNESEMIA (2) Atrial fibrillation Assessment/Plan: -Tele monitor -rate controlled -On Pradaxa -On BB and Digoxin -Seen by Cardiology Code(s): I48.91 - UNSPECIFIED ATRIAL FIBRILLATION Qualifiers: Atrial fibrillation type: persistent Qualified Code(s): I48.1 - Persistent atrial fibrillation (3) CHF exacerbation Assessment/Plan: -Furosemide 40 mg IVP BID -Cardiology and pulmonary on board -daily weights -Fluid restriction to 1 L -Low sodium diet Code(s): I50.9 - HEART FAILURE, UNSPECIFIED Qualifiers: Heart failure type: unspecified Qualified Code(s): I50.9 - Heart failure, unspecified (4) COPD (chronic obstructive pulmonary disease) Assessment/Plan: -Nasal O2 PRN -Pulmonary on borad -IV medrol 40 mg Q8H -Bronchodilators Code(s): J44.9 - CHRONIC OBSTRUCTIVE PULMONARY DISEASE, UNSPECIFIED (5) Hyperglycemia, drug-induced Assessment/Plan: -Diabetic diet -BGM ACHS -start Levemir 12 units BID -Novolog sliding scale Code(s): R73.9 - HYPERGLYCEMIA, UNSPECIFIED; T50.905A - ADVERSE EFFECT OF UNSP DRUG/MEDS/BIOL SUBST, INIT Assessment/Plan see problem list Self ambulatory Seen by Physical therapy
[2018-09-06] MEDS: POLYETHYLENE GLYCOL 3350 119 GM BTL PO SCH (09:05)
[2018-09-06] MEDS: NYSTATIN 100,000 UNIT/GM TOPICAL CREAM 15 GM TUBE TP SCH ×2 (09:05→23:04)
[2018-09-06] MEDS: INSULIN (LEVEMIR) 100 UNITS/ML UNITS SQ SCH ×2 (09:18→23:03)
[2018-09-06] MEDS: ALBUTEROL SO4 2.5/IPRATROPIUM 0.5 INH SOL 3 ML VIAL.NEB. NEB PRN (12:08)
--- NOTE | 2018-09-06 14:30 | PN ---
Progress Note (short form) - Note Progress Note: PULMONARY Still with shortness of breath, cough and wheezing. Vital Signs Period Temp Pulse Resp BP Sys/Uribe Pulse Ox Last 24 Hr 98 F-98.2 F 90-97 20-22 123-139/63-80 95-95 Intake & Output 09/03/18 09/04/18 09/05/18 09/06/18 23:59 23:59 23:59 23:59 Intake Total 550 540 660 440 Balance 550 540 660 440 Weight 100.788 kg 102.058 kg 102.149 kg 102.875 kg Gen: NAD at rest Heart: RRR Lung: scattered rhonchi Abd: soft, nontender Ext: + edema CBC, BMP 09/04/18 12:05 09/05/18 10:30 Active Medications Acetaminophen (Tylenol -) 650 mg PO Q6H PRN PRN Reason: PAIN OR FEVER Last Admin: 09/06/18 09:01 Dose: 650 mg Albuterol/Ipratropium (Duoneb -) 1 amp NEB Q6H PRN PRN Reason: SHORTNESS OF BREATH Last Admin: 09/06/18 12:08 Dose: 1 amp Atorvastatin Calcium (Lipitor -) 40 mg PO HS [facility] Last Admin: 09/05/18 22:12 Dose: 40 mg Dabigatran (Pradaxa -) 150 mg PO BID [facility] Last Admin: 09/06/18 09:03 Dose: 150 mg Digoxin (Lanoxin -) 0.25 mg PO DAILY [facility] Last Admin: 09/06/18 09:03 Dose: 0.25 mg Furosemide (Lasix -) 80 mg PO BID@0600,1400 [facility] Last Admin: 09/06/18 13:39 Dose: 80 mg Guaifenesin (Robitussin -) 10 ml PO Q6H PRN PRN Reason: COUGH Last Admin: 09/06/18 09:01 Dose: 10 ml Hydrocortisone (Hytone 0.5% Ointment -) 1 applic TP BID PRN PRN Reason: DRY SKIN Last Admin: 09/01/18 12:59 Dose: 1 applic Insulin Aspart (Novolog Vial Sliding Scale -) 1 vial SQ [facility]; Protocol Last Admin: 09/06/18 12:29 Dose: 4 units Insulin Detemir (Levemir Vial) 12 units SQ BID [facility] Last Admin: 09/06/18 09:18 Dose: 12 units Isosorbide Mononitrate (Imdur -) 60 mg PO DAILY [facility] Last Admin: 09/06/18 09:03 Dose: 60 mg Lisinopril (Prinivil) 2.5 mg PO DAILY [facility] Last Admin: 09/06/18 09:03 Dose: 2.5 mg Magnesium Oxide (Mag-Ox -) 400 mg PO BID [facility] Last Admin: 09/06/18 09:04 Dose: 400 mg Melatonin (Melatonin) 10 mg PO HS [facility] Last Admin: 09/05/18 22:12 Dose: 10 mg Methylprednisolone Sodium Succinate (Solu-Medrol -) 40 mg IVPUSH BID [facility] Last Admin: 09/06/18 10:19 Dose: Not Given Metoprolol Succinate (Toprol Xl -) 50 mg PO DAILY [facility] Last Admin: 09/06/18 09:04 Dose: 50 mg Montelukast Sodium (Singulair -) 10 mg PO HS [facility] Last Admin: 09/05/18 22:12 Dose: 10 mg Nystatin (Mycostatin Cream -) 1 applic TP BID [facility] Last Admin: 09/06/18 09:05 Dose: 1 applic Polyethylene Glycol (Miralax (For Daily Use) -) 17 gm PO DAILY [facility] Last Admin: 09/06/18 09:05 Dose: Not Given Potassium Chloride (K-Dur -) 20 meq PO DAILY [facility] Last Admin: 09/06/18 09:03 Dose: 20 meq Fluticasone/Salmeterol (Advair 100mcg/50mcg -) 1 puff IH BID [facility] Last Admin: 09/06/18 09:01 Dose: 1 puff Senna (Senna -) 2 tab PO HS [facility] Last Admin: 09/05/18 22:12 Dose: 2 tab A/P Acute on Chronic Systolic Heart Failure r/o Acute COPD Exacerbation Bronchiectasis Pulmonary HTN Atrial Fibrillation HTN DM JUAN CARLOS - continue lasix - monitor urine output, creatinine - daily weights - continue medrol at current dose - inhaled bronchodilators - O2 to keep SpO2 >90% - rate control - continue anticoagulation - outpt PFTs, PSG
[2018-09-06] MEDS ORDERED: INSULIN (NOVOLOG) ASPART 100 UNITS/ML 10ML VIAL SQ ONE (17:15)
[2018-09-06] MEDS: ATORVASTATIN CA 40 MG TABLET (FP) PO SCH (23:03)
[2018-09-06] MEDS: MELATONIN 5 MG TABLETS PO SCH (23:03)
[2018-09-06] MEDS: SENNOSIDES 8.6MG TABLET (FP) PO SCH (23:04)
[2018-09-06] MEDS: MONTELUKAST NA 10 MG TABLET PO SCH (23:04)
[2018-09-07] MEDS: INSULIN SLIDING SCALE (NOVOLOG) 1 VIAL SQ SCH ×3 (06:38→23:15)
[2018-09-07] MEDS: FUROSEMIDE 40 MG TABLET (FP) PO SCH ×2 (06:39→14:19)
[2018-09-07] MEDS: ALBUTEROL SO4 2.5/IPRATROPIUM 0.5 INH SOL 3 ML VIAL.NEB. NEB PRN (08:59)
[2018-09-07] MEDS ORDERED: PT OWN MED DRAWER 7, Y5N ONE (09:06)
[2018-09-07] MEDS: methylPREDNISolone NA SUCC 40 MG/1 ML VIAL IVPUSH SCH ×2 (09:12→23:15)
[2018-09-07] MEDS: DABIGATRAN ETEXILATE MESYLATE 150 MG CAPSULE PO SCH ×2 (09:12→23:15)
[2018-09-07] MEDS: DIGOXIN 0.25 MG TABLET (FP) PO SCH (09:12)
[2018-09-07] MEDS: LISINOPRIL 5 MG TABLET (FP) PO SCH (09:12)
[2018-09-07] MEDS: MAGNESIUM OXIDE 400 MG TABLET (FP) PO SCH ×2 (09:12→23:15)
[2018-09-07] MEDS: ISOSORBIDE MONONITRATE 60 MG TAB.SR.24H (FP) PO SCH (09:12)
[2018-09-07] MEDS: HYDROCORTISONE 0.5% TOPICAL OINTMENT TUBE TP PRN (09:13)
[2018-09-07] MEDS: POTASSIUM CHLORIDE TABS 20 MEQ TABLET.ER (FP) PO SCH (09:13)
[2018-09-07] MEDS: FLUTICASONE/SALMETEROL 100 MCG/50 MCG DISKUS IH SCH ×2 (09:17→23:16)
[2018-09-07] MEDS: NYSTATIN 100,000 UNIT/GM TOPICAL CREAM 15 GM TUBE TP SCH ×2 (09:17→23:16)
[2018-09-07] MEDS: INSULIN (LEVEMIR) 100 UNITS/ML UNITS SQ SCH ×2 (09:22→23:16)
[2018-09-07] MEDS: POLYETHYLENE GLYCOL 3350 119 GM BTL PO SCH (09:22)
--- NOTE | 2018-09-07 12:20 | PN ---
Progress Note, Physician Chief Complaint: SOB CHF History of Present Illness: NAD Cough and SOB improved IV Furosemide On IV Medrol Blood sugars rising 2/2 to medrol On Insulin sliding scale - Current Medication List Current Medications: Active Medications Acetaminophen (Tylenol -) 650 mg PO Q6H PRN PRN Reason: PAIN OR FEVER Last Admin: 09/06/18 09:01 Dose: 650 mg Albuterol/Ipratropium (Duoneb -) 1 amp NEB Q6H PRN PRN Reason: SHORTNESS OF BREATH Last Admin: 09/07/18 08:59 Dose: 1 amp Atorvastatin Calcium (Lipitor -) 40 mg PO HS [facility] Last Admin: 09/06/18 23:03 Dose: 40 mg Dabigatran (Pradaxa -) 150 mg PO BID [facility] Last Admin: 09/07/18 09:12 Dose: 150 mg Digoxin (Lanoxin -) 0.25 mg PO DAILY [facility] Last Admin: 09/07/18 09:12 Dose: 0.25 mg Furosemide (Lasix -) 80 mg PO BID@0600,1400 [facility] Last Admin: 09/07/18 06:39 Dose: 80 mg Guaifenesin (Robitussin -) 10 ml PO Q6H PRN PRN Reason: COUGH Last Admin: 09/06/18 09:01 Dose: 10 ml Hydrocortisone (Hytone 0.5% Ointment -) 1 applic TP BID PRN PRN Reason: DRY SKIN Last Admin: 09/07/18 09:13 Dose: 1 applic Insulin Aspart (Novolog Vial Sliding Scale -) 1 vial SQ [facility]; Protocol Last Admin: 09/07/18 06:38 Dose: Not Given Insulin Detemir (Levemir Vial) 12 units SQ BID [facility] Last Admin: 09/07/18 09:22 Dose: 12 units Isosorbide Mononitrate (Imdur -) 60 mg PO DAILY [facility] Last Admin: 09/07/18 09:12 Dose: 60 mg Lisinopril (Prinivil) 2.5 mg PO DAILY [facility] Last Admin: 09/07/18 09:12 Dose: 2.5 mg Magnesium Oxide (Mag-Ox -) 400 mg PO BID [facility] Last Admin: 09/07/18 09:12 Dose: 400 mg Melatonin (Melatonin) 10 mg PO [facility] Last Admin: 09/06/18 23:03 Dose: 10 mg Methylprednisolone Sodium Succinate (Solu-Medrol -) 40 mg IVPUSH BID [facility] Last Admin: 09/07/18 09:12 Dose: 40 mg Metoprolol Succinate (Toprol Xl -) 50 mg PO DAILY [facility] Last Admin: 09/07/18 09:12 Dose: 50 mg Montelukast Sodium (Singulair -) 10 mg PO HS [facility] Last Admin: 09/06/18 23:04 Dose: 10 mg Nystatin (Mycostatin Cream -) 1 applic TP BID [facility] Last Admin: 09/07/18 09:17 Dose: 1 applic Polyethylene Glycol (Miralax (For Daily Use) -) 17 gm PO DAILY [facility] Last Admin: 09/07/18 09:22 Dose: Not Given Potassium Chloride (K-Dur -) 20 meq PO DAILY [facility] Last Admin: 09/07/18 09:13 Dose: 20 meq Fluticasone/Salmeterol (Advair 100mcg/50mcg -) 1 puff IH BID [facility] Last Admin: 09/07/18 09:17 Dose: 1 puff Senna (Senna -) 2 tab PO HS [facility] Last Admin: 09/06/18 23:04 Dose: 2 tab - Objective Vital Signs: Vital Signs Temperature 97.5 F L 09/07/18 10:00 Pulse Rate 78 09/07/18 10:00 Respiratory Rate 18 09/07/18 10:00 Blood Pressure 159/90 09/07/18 10:00 O2 Sat by Pulse Oximetry (%) 95 09/07/18 09:00 Constitutional: Yes: Well Nourished, No Distress, Calm Cardiovascular: Yes: Regular Rate and Rhythm Respiratory: Yes: Regular, Rales (BLL), SOB on Exertion Gastrointestinal: Yes: Normal Bowel Sounds, Soft Musculoskeletal: Yes: WNL Extremities: Yes: WNL Edema: LLE: 1+, RLE: 1+ Peripheral Pulses WNL: Yes Neurological: Yes: Alert, Oriented Psychiatric: Yes: Alert, Oriented Labs: CBC, BMP 09/04/18 12:05 09/06/18 20:00 INR, PTT INR 1.44 (0.83-1.09) H 08/29/18 15:14 Problem List - Problems (1) Hypomagnesemia Assessment/Plan: -replenished -Repeat labs normal Mg level -Seen by cardiology Code(s): E83.42 - HYPOMAGNESEMIA (2) Atrial fibrillation Assessment/Plan: -Tele monitor -rate controlled -On Pradaxa -On BB and Digoxin -Seen by Cardiology Code(s): I48.91 - UNSPECIFIED ATRIAL FIBRILLATION Qualifiers: Atrial fibrillation type: persistent Qualified Code(s): I48.1 - Persistent atrial fibrillation (3) CHF exacerbation Assessment/Plan: -Furosemide 40 mg IVP BID -Cardiology and pulmonary on board -daily weights -Fluid restriction to 1 L -Low sodium diet Code(s): I50.9 - HEART FAILURE, UNSPECIFIED Qualifiers: Heart failure type: unspecified Qualified Code(s): I50.9 - Heart failure, unspecified (4) COPD (chronic obstructive pulmonary disease) Assessment/Plan: -Nasal O2 PRN -Pulmonary on borad -IV medrol 40 mg BID -Bronchodilators Code(s): J44.9 - CHRONIC OBSTRUCTIVE PULMONARY DISEASE, UNSPECIFIED (5) Hyperglycemia, drug-induced Assessment/Plan: -Diabetic diet -BGM ACHS -Increase Levemir 20 units BID -Novolog sliding scale Code(s): R73.9 - HYPERGLYCEMIA, UNSPECIFIED; T50.905A - ADVERSE EFFECT OF UNSP DRUG/MEDS/BIOL SUBST, INIT Assessment/Plan see problem list Self ambulatory Seen by Physical therapy
--- NOTE | 2018-09-07 13:13 | PN ---
Progress Note (short form) - Note Progress Note: PULMONARY Less shortness of breath, cough and wheezing. Chest feels looser today. Vital Signs Period Temp Pulse Resp BP Sys/Uribe Pulse Ox Last 24 Hr 97.2 F-98.1 F 78-89 18-20 135-159/75-90 95-97 Gen: NAD at rest Heart: RRR Lung: scattered rhonchi Abd: soft, nontender Ext: + edema CBC, BMP 09/04/18 12:05 09/06/18 20:00 Active Medications Acetaminophen (Tylenol -) 650 mg PO Q6H PRN PRN Reason: PAIN OR FEVER Last Admin: 09/06/18 09:01 Dose: 650 mg Albuterol/Ipratropium (Duoneb -) 1 amp NEB Q6H PRN PRN Reason: SHORTNESS OF BREATH Last Admin: 09/07/18 08:59 Dose: 1 amp Atorvastatin Calcium (Lipitor -) 40 mg PO HS [facility] Last Admin: 09/06/18 23:03 Dose: 40 mg Dabigatran (Pradaxa -) 150 mg PO BID [facility] Last Admin: 09/07/18 09:12 Dose: 150 mg Digoxin (Lanoxin -) 0.25 mg PO DAILY [facility] Last Admin: 09/07/18 09:12 Dose: 0.25 mg Furosemide (Lasix -) 80 mg PO BID@0600,1400 [facility] Last Admin: 09/07/18 06:39 Dose: 80 mg Guaifenesin (Robitussin -) 10 ml PO Q6H PRN PRN Reason: COUGH Last Admin: 09/06/18 09:01 Dose: 10 ml Hydrocortisone (Hytone 0.5% Ointment -) 1 applic TP BID PRN PRN Reason: DRY SKIN Last Admin: 09/07/18 09:13 Dose: 1 applic Insulin Aspart (Novolog Vial Sliding Scale -) 1 vial SQ [facility]; Protocol Insulin Detemir (Levemir Vial) 20 units SQ BID@0700,2200 [facility] Isosorbide Mononitrate (Imdur -) 60 mg PO DAILY [facility] Last Admin: 09/07/18 09:12 Dose: 60 mg Lisinopril (Prinivil) 2.5 mg PO DAILY [facility] Last Admin: 09/07/18 09:12 Dose: 2.5 mg Magnesium Oxide (Mag-Ox -) 400 mg PO BID [facility] Last Admin: 09/07/18 09:12 Dose: 400 mg Melatonin (Melatonin) 10 mg PO HS [facility] Last Admin: 09/06/18 23:03 Dose: 10 mg Methylprednisolone Sodium Succinate (Solu-Medrol -) 40 mg IVPUSH BID [facility] Last Admin: 09/07/18 09:12 Dose: 40 mg Metoprolol Succinate (Toprol Xl -) 50 mg PO DAILY [facility] Last Admin: 09/07/18 09:12 Dose: 50 mg Montelukast Sodium (Singulair -) 10 mg PO HS [facility] Last Admin: 09/06/18 23:04 Dose: 10 mg Nystatin (Mycostatin Cream -) 1 applic TP BID [facility] Last Admin: 09/07/18 09:17 Dose: 1 applic Polyethylene Glycol (Miralax (For Daily Use) -) 17 gm PO DAILY [facility] Last Admin: 09/07/18 09:22 Dose: Not Given Potassium Chloride (K-Dur -) 20 meq PO DAILY [facility] Last Admin: 09/07/18 09:13 Dose: 20 meq Fluticasone/Salmeterol (Advair 100mcg/50mcg -) 1 puff IH BID [facility] Last Admin: 09/07/18 09:17 Dose: 1 puff Senna (Senna -) 2 tab PO [facility] Last Admin: 09/06/18 23:04 Dose: 2 tab A/P Acute on Chronic Systolic Heart Failure r/o Acute COPD Exacerbation Bronchiectasis Pulmonary HTN Atrial Fibrillation HTN DM JUAN CARLOS - continue lasix - monitor urine output, creatinine - daily weights - agree with medrol taper, can likely change to PO in AM - inhaled bronchodilators - O2 to keep SpO2 >90% - rate control - continue anticoagulation - outpt PFTs, PSG
[2018-09-07] MEDS: MELATONIN 5 MG TABLETS PO SCH (23:14)
[2018-09-07] MEDS: SENNOSIDES 8.6MG TABLET (FP) PO SCH (23:15)
[2018-09-07] MEDS: MONTELUKAST NA 10 MG TABLET PO SCH (23:15)
[2018-09-07] MEDS: ATORVASTATIN CA 40 MG TABLET (FP) PO SCH (23:15)
[2018-09-08] MEDS: ACETAMINOPHEN 325 MG TABLET (FP) PO PRN ×2 (04:29→20:43)
[2018-09-08] MEDS: FUROSEMIDE 40 MG TABLET (FP) PO SCH ×2 (06:27→14:15)
[2018-09-08] MEDS: INSULIN SLIDING SCALE (NOVOLOG) 1 VIAL SQ SCH ×4 (06:31→21:25)
[2018-09-08] MEDS: INSULIN (LEVEMIR) 100 UNITS/ML UNITS SQ SCH ×2 (06:31→21:25)
[2018-09-08] MEDS: ALBUTEROL SO4 2.5/IPRATROPIUM 0.5 INH SOL 3 ML VIAL.NEB. NEB PRN (07:57)
[2018-09-08] MEDS: MAGNESIUM OXIDE 400 MG TABLET (FP) PO SCH ×2 (09:21→21:27)
[2018-09-08] MEDS: ISOSORBIDE MONONITRATE 60 MG TAB.SR.24H (FP) PO SCH (09:21)
[2018-09-08] MEDS: LISINOPRIL 5 MG TABLET (FP) PO SCH (09:21)
[2018-09-08] MEDS: DIGOXIN 0.25 MG TABLET (FP) PO SCH (09:21)
[2018-09-08] MEDS: methylPREDNISolone NA SUCC 40 MG/1 ML VIAL IVPUSH SCH (09:21)
[2018-09-08] MEDS: POTASSIUM CHLORIDE TABS 20 MEQ TABLET.ER (FP) PO SCH (09:21)
[2018-09-08] MEDS: DABIGATRAN ETEXILATE MESYLATE 150 MG CAPSULE PO SCH ×2 (09:22→21:26)
[2018-09-08] MEDS: HYDROCORTISONE 0.5% TOPICAL OINTMENT TUBE TP PRN ×2 (09:22→21:24)
[2018-09-08] MEDS: FLUTICASONE/SALMETEROL 100 MCG/50 MCG DISKUS IH SCH ×2 (09:22→21:24)
[2018-09-08] MEDS: NYSTATIN 100,000 UNIT/GM TOPICAL CREAM 15 GM TUBE TP SCH ×2 (09:22→21:26)
[2018-09-08] MEDS: POLYETHYLENE GLYCOL 3350 119 GM BTL PO SCH (09:23)
--- NOTE | 2018-09-08 09:23 | PN ---
Progress Note, Physician - Current Medication List Current Medications: Active Medications Acetaminophen (Tylenol -) 650 mg PO Q6H PRN PRN Reason: PAIN OR FEVER Last Admin: 09/08/18 04:29 Dose: 650 mg Albuterol/Ipratropium (Duoneb -) 1 amp NEB Q6H PRN PRN Reason: SHORTNESS OF BREATH Last Admin: 09/08/18 07:57 Dose: 1 amp Atorvastatin Calcium (Lipitor -) 40 mg PO HS [facility] Last Admin: 09/07/18 23:15 Dose: 40 mg Dabigatran (Pradaxa -) 150 mg PO BID [facility] Last Admin: 09/07/18 23:15 Dose: 150 mg Digoxin (Lanoxin -) 0.25 mg PO DAILY [facility] Last Admin: 09/07/18 09:12 Dose: 0.25 mg Furosemide (Lasix -) 80 mg PO BID@0600,1400 [facility] Last Admin: 09/08/18 06:27 Dose: 80 mg Guaifenesin (Robitussin -) 10 ml PO Q6H PRN PRN Reason: COUGH Last Admin: 09/06/18 09:01 Dose: 10 ml Hydrocortisone (Hytone 0.5% Ointment -) 1 applic TP BID PRN PRN Reason: DRY SKIN Last Admin: 09/07/18 09:13 Dose: 1 applic Insulin Aspart (Novolog Vial Sliding Scale -) 1 vial SQ [facility]; Protocol Last Admin: 09/08/18 06:31 Dose: 4 units Insulin Detemir (Levemir Vial) 20 units SQ BID@0700,2200 [facility] Last Admin: 09/08/18 06:31 Dose: 20 units Isosorbide Mononitrate (Imdur -) 60 mg PO DAILY [facility] Last Admin: 09/07/18 09:12 Dose: 60 mg Lisinopril (Prinivil) 2.5 mg PO DAILY [facility] Last Admin: 09/07/18 09:12 Dose: 2.5 mg Magnesium Oxide (Mag-Ox -) 400 mg PO BID [facility] Last Admin: 09/07/18 23:15 Dose: 400 mg Melatonin (Melatonin) 10 mg PO HS [facility] Last Admin: 09/07/18 23:14 Dose: 10 mg Methylprednisolone Sodium Succinate (Solu-Medrol -) 40 mg IVPUSH BID [facility] Last Admin: 09/07/18 23:15 Dose: 40 mg Metoprolol Succinate (Toprol Xl -) 50 mg PO DAILY [facility] Last Admin: 09/07/18 09:12 Dose: 50 mg Montelukast Sodium (Singulair -) 10 mg PO HS [facility] Last Admin: 09/07/18 23:15 Dose: 10 mg Nystatin (Mycostatin Cream -) 1 applic TP BID [facility] Last Admin: 09/07/18 23:16 Dose: 1 applic Polyethylene Glycol (Miralax (For Daily Use) -) 17 gm PO DAILY [facility] Last Admin: 09/07/18 09:22 Dose: Not Given Potassium Chloride (K-Dur -) 20 meq PO DAILY [facility] Last Admin: 09/07/18 09:13 Dose: 20 meq Fluticasone/Salmeterol (Advair 100mcg/50mcg -) 1 puff IH BID [facility] Last Admin: 09/07/18 23:16 Dose: 1 puff Senna (Senna -) 2 tab PO [facility] Last Admin: 09/07/18 23:15 Dose: 2 tab - Objective Vital Signs: Vital Signs Temperature 98.1 F 09/08/18 06:00 Pulse Rate 67 09/08/18 06:00 Respiratory Rate 20 09/08/18 06:00 Blood Pressure 150/85 09/08/18 06:00 O2 Sat by Pulse Oximetry (%) 96 09/07/18 21:00 Cardiovascular: Yes: S1, S2 Respiratory: Yes: Regular, CTA Bilaterally Gastrointestinal: Yes: Normal Bowel Sounds, Soft Edema: Yes Labs: CBC, BMP 09/04/18 12:05 09/06/18 20:00 INR, PTT INR 1.44 (0.83-1.09) H 08/29/18 15:14 Assessment/Plan - Problems (1) Hypomagnesemia Assessment/Plan: -replenished -Repeat labs normal Mg level -Seen by cardiology Code(s): E83.42 - HYPOMAGNESEMIA (2) Atrial fibrillation Assessment/Plan: -Tele monitor -rate controlled -On Pradaxa -On BB and Digoxin -Seen by Cardiology Code(s): I48.91 - UNSPECIFIED ATRIAL FIBRILLATION Qualifiers: Atrial fibrillation type: persistent Qualified Code(s): I48.1 - Persistent atrial fibrillation (3) CHF exacerbation Assessment/Plan: -Furosemide 40 mg IVP BID--80 po bid -Cardiology and pulmonary on board--EF 30 % -daily weights -Fluid restriction to 1 L -Low sodium diet Code(s): I50.9 - HEART FAILURE, UNSPECIFIED Qualifiers: Heart failure type: unspecified Qualified Code(s): I50.9 - Heart failure, unspecified (4) COPD (chronic obstructive pulmonary disease) Assessment/Plan: -Nasal O2 PRN -Pulmonary on borad -IV medrol 40 mg BID--to po 40 qd -Bronchodilators -CT scan Code(s): J44.9 - CHRONIC OBSTRUCTIVE PULMONARY DISEASE, UNSPECIFIED (5) Hyperglycemia, drug-induced Assessment/Plan: -Diabetic diet -BGM ACHS -Increase Levemir 20 units BID -Novolog sliding scale Code(s): R73.9 - HYPERGLYCEMIA, UNSPECIFIED; T50.905A - ADVERSE EFFECT OF UNSP DRUG/MEDS/BIOL SUBST, INIT Assessment/Plan see problem list Self ambulatory Seen by Physical therapy
[2018-09-08 10:34] LABS: ALBUMIN 2.9 g/dl (3.4-5.0); ALK PHOS 176 U/L (45-117); ANION GAP 11 MMOL/L (8-16); BILIRUBIN,TOTAL 0.5 mg/dL (0.2-1); BLOOD UREA NITROGEN 40 mg/dL (7-18); CALCIUM 8.4 mg/dL (8.5-10.1); CHLORIDE 96 mmol/L (98-107); CO2 29 mmol/L (21-32); CREATININE 0.8 mg/dL (0.55-1.3); GLUCOSE,RANDOM 201 mg/dL (74-106); MAGNESIUM 1.9 mg/dL (1.8-2.4); POTASSIUM 4.1 mmol/L (3.5-5.1); SGOT/AST 23 U/L (15-37); SGPT/ALT 39 U/L (13-61); SODIUM 136 mmol/L (136-145); TOT PROT 7.3 g/dl (6.4-8.2)
[2018-09-08] MEDS: predniSONE 20 MG TABLET (UD) PO SCH (12:26)
--- NOTE | 2018-09-08 16:57 | PN ---
Progress Note, Physician History of Present Illness: pulmonary alert,feeling better,less dyspneic, - Current Medication List Current Medications: Active Medications Acetaminophen (Tylenol -) 650 mg PO Q6H PRN PRN Reason: PAIN OR FEVER Last Admin: 09/08/18 04:29 Dose: 650 mg Albuterol/Ipratropium (Duoneb -) 1 amp NEB Q6H PRN PRN Reason: SHORTNESS OF BREATH Last Admin: 09/08/18 07:57 Dose: 1 amp Atorvastatin Calcium (Lipitor -) 40 mg PO HS [facility] Last Admin: 09/07/18 23:15 Dose: 40 mg Dabigatran (Pradaxa -) 150 mg PO BID [facility] Last Admin: 09/08/18 09:22 Dose: 150 mg Digoxin (Lanoxin -) 0.25 mg PO DAILY [facility] Last Admin: 09/08/18 09:21 Dose: 0.25 mg Furosemide (Lasix -) 80 mg PO BID@0600,1400 [facility] Last Admin: 09/08/18 14:15 Dose: 80 mg Guaifenesin (Robitussin -) 10 ml PO Q6H PRN PRN Reason: COUGH Last Admin: 09/06/18 09:01 Dose: 10 ml Hydrocortisone (Hytone 0.5% Ointment -) 1 applic TP BID PRN PRN Reason: DRY SKIN Last Admin: 09/08/18 09:22 Dose: 1 applic Insulin Aspart (Novolog Vial Sliding Scale -) 1 vial SQ ACHS [facility]; Protocol Last Admin: 09/08/18 12:25 Dose: Not Given Insulin Detemir (Levemir Vial) 20 units SQ BID@0700,2200 [facility] Last Admin: 09/08/18 06:31 Dose: 20 units Isosorbide Mononitrate (Imdur -) 60 mg PO DAILY [facility] Last Admin: 09/08/18 09:21 Dose: 60 mg Lisinopril (Prinivil) 2.5 mg PO DAILY [facility] Last Admin: 09/08/18 09:21 Dose: 2.5 mg Magnesium Oxide (Mag-Ox -) 400 mg PO BID [facility] Last Admin: 09/08/18 09:21 Dose: 400 mg Melatonin (Melatonin) 10 mg PO [facility] Last Admin: 09/07/18 23:14 Dose: 10 mg Metoprolol Succinate (Toprol Xl -) 50 mg PO DAILY [facility] Last Admin: 09/08/18 09:21 Dose: 50 mg Montelukast Sodium (Singulair -) 10 mg PO HS [facility] Last Admin: 09/07/18 23:15 Dose: 10 mg Nystatin (Mycostatin Cream -) 1 applic TP BID [facility] Last Admin: 09/08/18 09:22 Dose: 1 applic Polyethylene Glycol (Miralax (For Daily Use) -) 17 gm PO DAILY [facility] Last Admin: 09/08/18 09:23 Dose: Not Given Potassium Chloride (K-Dur -) 20 meq PO DAILY [facility] Last Admin: 09/08/18 09:21 Dose: 20 meq Prednisone (Deltasone -) 40 mg PO DAILY [facility] Last Admin: 09/08/18 12:26 Dose: Not Given Fluticasone/Salmeterol (Advair 100mcg/50mcg -) 1 puff IH BID [facility] Last Admin: 09/08/18 09:22 Dose: 1 puff Senna (Senna -) 2 tab PO [facility] Last Admin: 09/07/18 23:15 Dose: 2 tab - Objective Vital Signs: Vital Signs Temperature 97.9 F 09/08/18 14:26 Pulse Rate 76 09/08/18 14:26 Respiratory Rate 18 09/08/18 14:26 Blood Pressure 127/77 09/08/18 14:26 O2 Sat by Pulse Oximetry (%) 95 09/08/18 09:00 Constitutional: Yes: Well Nourished, Calm Eyes: Yes: WNL HENT: Yes: WNL Neck: Yes: WNL Cardiovascular: Yes: Pulse Irregular, S1, S2 Respiratory: Yes: Wheezes (few scattered wheezes) Gastrointestinal: Yes: Normal Bowel Sounds, Soft Extremities: Yes: WNL Edema: Yes Labs: 09/08/18 09:32 INR, PTT INR 1.44 (0.83-1.09) H 08/29/18 15:14 Problem List - Problems (1) CHF (congestive heart failure) Code(s): I50.9 - HEART FAILURE, UNSPECIFIED Qualifiers: Heart failure type: unspecified Heart failure chronicity: acute on chronic Qualified Code(s): I50.9 - Heart failure, unspecified (2) Atrial fibrillation Code(s): I48.91 - UNSPECIFIED ATRIAL FIBRILLATION Qualifiers: Atrial fibrillation type: persistent Qualified Code(s): I48.1 - Persistent atrial fibrillation (3) CAD (coronary artery disease) Code(s): I25.10 - ATHSCL HEART DISEASE OF [place] CORONARY ARTERY W/O ANG PCTRS Qualifiers: Coronary Disease-Associated Artery/Lesion type: [place] artery [place] vs. transplanted heart: [place] heart Associated angina: without angina Qualified Code(s): I25.10 - Atherosclerotic heart disease of [place] coronary artery without angina pectoris (4) CHF exacerbation Code(s): I50.9 - HEART FAILURE, UNSPECIFIED Qualifiers: Heart failure type: unspecified Qualified Code(s): I50.9 - Heart failure, unspecified (5) COPD (chronic obstructive pulmonary disease) Code(s): J44.9 - CHRONIC OBSTRUCTIVE PULMONARY DISEASE, UNSPECIFIED (6) Chest pain Code(s): R07.9 - CHEST PAIN, UNSPECIFIED Qualifiers: Chest pain type: unspecified Qualified Code(s): R07.9 - Chest pain, unspecified (7) Hypertension Code(s): I10 - ESSENTIAL (PRIMARY) HYPERTENSION Qualifiers: Hypertension type: essential hypertension Qualified Code(s): I10 - Essential (primary) hypertension (8) Shortness of breath Code(s): R06.02 - SHORTNESS OF BREATH (9) Pulmonary HTN Code(s): I27.20 - PULMONARY HYPERTENSION, UNSPECIFIED Assessment/Plan IMP DYSPNEA ACUTE ON CHRONIC SYSTOLIC CHF COPD PULMONARY HTN AFIB HTN DM OSAS AHI 38.1 BRONCHIECTASIS PLAN LASIX INHALED BRONCHODILATORS SUPPLEMENTAL O2 DAILY WT F/U CHEST X-RAYS FORMAL SLEEP STUDIES OUTPATIENT AC DR TEJEDA Problem List - Problems (1) CHF (congestive heart failure) Code(s): I50.9 - HEART FAILURE, UNSPECIFIED Qualifiers: Heart failure type: unspecified Heart failure chronicity: acute on chronic Qualified Code(s): I50.9 - Heart failure, unspecified (2) Atrial fibrillation Code(s): I48.91 - UNSPECIFIED ATRIAL FIBRILLATION Qualifiers: Atrial fibrillation type: persistent Qualified Code(s): I48.1 - Persistent atrial fibrillation (3) CAD (coronary artery disease) Code(s): I25.10 - ATHSCL HEART DISEASE OF [place] CORONARY ARTERY W/O ANG PCTRS Qualifiers: Coronary Disease-Associated Artery/Lesion type: [place] artery [place] vs. transplanted heart: [place] heart Associated angina: without angina Qualified Code(s): I25.10 - Atherosclerotic heart disease of [place] coronary artery without angina pectoris (4) CHF exacerbation Code(s): I50.9 - HEART FAILURE, UNSPECIFIED Qualifiers: Heart failure type: unspecified Qualified Code(s): I50.9 - Heart failure, unspecified (5) COPD (chronic obstructive pulmonary disease) Code(s): J44.9 - CHRONIC OBSTRUCTIVE PULMONARY DISEASE, UNSPECIFIED (6) Chest pain Code(s): R07.9 - CHEST PAIN, UNSPECIFIED Qualifiers: Chest pain type: unspecified Qualified Code(s): R07.9 - Chest pain, unspecified (7) Hypertension Code(s): I10 - ESSENTIAL (PRIMARY) HYPERTENSION Qualifiers: Hypertension type: essential hypertension Qualified Code(s): I10 - Essential (primary) hypertension (8) Shortness of breath Code(s): R06.02 - SHORTNESS OF BREATH (9) Pulmonary HTN Code(s): I27.20 - PULMONARY HYPERTENSION, UNSPECIFIED
[2018-09-08] MEDS ORDERED: INSULIN (NOVOLOG) ASPART 100 UNITS/ML 10ML VIAL ONE (21:19)
[2018-09-08] MEDS: MONTELUKAST NA 10 MG TABLET PO SCH (21:26)
[2018-09-08] MEDS: SENNOSIDES 8.6MG TABLET (FP) PO SCH (21:27)
[2018-09-08] MEDS: MELATONIN 5 MG TABLETS PO SCH (21:27)
[2018-09-08] MEDS: ATORVASTATIN CA 40 MG TABLET (FP) PO SCH (21:27)
[2018-09-08 23:55] VITALS: BMI 37.1
[2018-09-09] MEDS: INSULIN SLIDING SCALE (NOVOLOG) 1 VIAL SQ SCH ×2 (06:24→12:16)
[2018-09-09] MEDS: INSULIN (LEVEMIR) 100 UNITS/ML UNITS SQ SCH (06:25)
[2018-09-09] MEDS: FUROSEMIDE 40 MG TABLET (FP) PO SCH ×2 (06:27→15:27)
[2018-09-09] MEDS ORDERED: INSULIN (LEVEMIR) 100 UNITS/ML UNITS SQ ONE (06:46)
[2018-09-09] MEDS: DABIGATRAN ETEXILATE MESYLATE 150 MG CAPSULE PO SCH (09:23)
[2018-09-09] MEDS: ISOSORBIDE MONONITRATE 60 MG TAB.SR.24H (FP) PO SCH (09:23)
[2018-09-09] MEDS: POTASSIUM CHLORIDE TABS 20 MEQ TABLET.ER (FP) PO SCH (09:23)
[2018-09-09] MEDS: DIGOXIN 0.25 MG TABLET (FP) PO SCH (09:23)
[2018-09-09] MEDS: predniSONE 20 MG TABLET (UD) PO SCH (09:23)
[2018-09-09] MEDS: MAGNESIUM OXIDE 400 MG TABLET (FP) PO SCH (09:23)
[2018-09-09] MEDS: LISINOPRIL 5 MG TABLET (FP) PO SCH (09:24)
--- NOTE | 2018-09-09 09:57 | PN ---
Progress Note, Physician History of Present Illness: pulmonary alert,feeling better,comfortable sob improving - Current Medication List Current Medications: Active Medications Acetaminophen (Tylenol -) 650 mg PO Q6H PRN PRN Reason: PAIN OR FEVER Last Admin: 09/08/18 20:43 Dose: 650 mg Albuterol/Ipratropium (Duoneb -) 1 amp NEB Q6H PRN PRN Reason: SHORTNESS OF BREATH Last Admin: 09/08/18 07:57 Dose: 1 amp Atorvastatin Calcium (Lipitor -) 40 mg PO HS [facility] Last Admin: 09/08/18 21:27 Dose: 40 mg Dabigatran (Pradaxa -) 150 mg PO BID [facility] Last Admin: 09/09/18 09:23 Dose: 150 mg Digoxin (Lanoxin -) 0.25 mg PO DAILY [facility] Last Admin: 09/09/18 09:23 Dose: 0.25 mg Furosemide (Lasix -) 80 mg PO BID@0600,1400 [facility] Last Admin: 09/09/18 06:27 Dose: 80 mg Guaifenesin (Robitussin -) 10 ml PO Q6H PRN PRN Reason: COUGH Last Admin: 09/06/18 09:01 Dose: 10 ml Hydrocortisone (Hytone 0.5% Ointment -) 1 applic TP BID PRN PRN Reason: DRY SKIN Last Admin: 09/08/18 21:24 Dose: 1 applic Insulin Aspart (Novolog Vial Sliding Scale -) 1 vial SQ [facility] ON LICENSE OF [facility]; Protocol Last Admin: 09/09/18 06:24 Dose: Not Given Insulin Detemir (Levemir Vial) 20 units SQ BID@0700,2200 [facility] Last Admin: 09/09/18 06:25 Dose: 20 units Isosorbide Mononitrate (Imdur -) 60 mg PO DAILY [facility] Last Admin: 09/09/18 09:23 Dose: 60 mg Lisinopril (Prinivil) 2.5 mg PO DAILY [facility] Last Admin: 09/09/18 09:24 Dose: 2.5 mg Magnesium Oxide (Mag-Ox -) 400 mg PO BID [facility] Last Admin: 09/09/18 09:23 Dose: 400 mg Melatonin (Melatonin) 10 mg PO [facility] Last Admin: 09/08/18 21:27 Dose: 10 mg Metoprolol Succinate (Toprol Xl -) 50 mg PO DAILY [facility] Last Admin: 10/30/18 09:24 Dose: 50 mg Montelukast Sodium (Singulair -) 10 mg PO HS [facility] Last Admin: 09/08/18 21:26 Dose: 10 mg Nystatin (Mycostatin Cream -) 1 applic TP BID [facility] Last Admin: 09/08/18 21:26 Dose: 1 applic Polyethylene Glycol (Miralax (For Daily Use) -) 17 gm PO DAILY [facility] Last Admin: 09/08/18 09:23 Dose: Not Given Potassium Chloride (K-Dur -) 20 meq PO DAILY [facility] Last Admin: 09/09/18 09:23 Dose: 20 meq Prednisone (Deltasone -) 40 mg PO DAILY [facility] Last Admin: 09/09/18 09:23 Dose: 40 mg Fluticasone/Salmeterol (Advair 100mcg/50mcg -) 1 puff IH BID [facility] Last Admin: 09/08/18 21:24 Dose: 1 puff Senna (Senna -) 2 tab PO HS [facility] Last Admin: 09/08/18 21:27 Dose: Not Given - Objective Vital Signs: Vital Signs Temperature 97.8 F 09/09/18 06:00 Pulse Rate 82 09/09/18 09:23 Respiratory Rate 18 09/09/18 06:00 Blood Pressure 145/74 09/09/18 06:00 O2 Sat by Pulse Oximetry (%) 95 09/08/18 21:00 Constitutional: Yes: Well Nourished, Calm Eyes: Yes: WNL HENT: Yes: WNL Neck: Yes: WNL Cardiovascular: Yes: Pulse Irregular, S1, S2 Respiratory: Yes: Rales (few bibasailar crackles) Gastrointestinal: Yes: Normal Bowel Sounds, Soft Extremities: Yes: WNL Edema: Yes Labs: CBC, BMP 09/08/18 09:32 Problem List - Problems (1) CHF (congestive heart failure) Code(s): I50.9 - HEART FAILURE, UNSPECIFIED Qualifiers: Heart failure type: unspecified Heart failure chronicity: acute on chronic Qualified Code(s): I50.9 - Heart failure, unspecified (2) Atrial fibrillation Code(s): I48.91 - UNSPECIFIED ATRIAL FIBRILLATION Qualifiers: Atrial fibrillation type: persistent Qualified Code(s): I48.1 - Persistent atrial fibrillation (3) CAD (coronary artery disease) Code(s): I25.10 - ATHSCL HEART DISEASE OF [place] CORONARY ARTERY W/O ANG PCTRS Qualifiers: Coronary Disease-Associated Artery/Lesion type: [place] artery [place] vs. transplanted heart: [place] heart Associated angina: without angina Qualified Code(s): I25.10 - Atherosclerotic heart disease of [place] coronary artery without angina pectoris (4) CHF exacerbation Code(s): I50.9 - HEART FAILURE, UNSPECIFIED Qualifiers: Heart failure type: unspecified Qualified Code(s): I50.9 - Heart failure, unspecified (5) COPD (chronic obstructive pulmonary disease) Code(s): J44.9 - CHRONIC OBSTRUCTIVE PULMONARY DISEASE, UNSPECIFIED (6) Chest pain Code(s): R07.9 - CHEST PAIN, UNSPECIFIED Qualifiers: Chest pain type: unspecified Qualified Code(s): R07.9 - Chest pain, unspecified (7) Hypertension Code(s): I10 - ESSENTIAL (PRIMARY) HYPERTENSION Qualifiers: Hypertension type: essential hypertension Qualified Code(s): I10 - Essential (primary) hypertension (8) Shortness of breath Code(s): R06.02 - SHORTNESS OF BREATH (9) Pulmonary HTN Code(s): I27.20 - PULMONARY HYPERTENSION, UNSPECIFIED Assessment/Plan IMP DYSPNEA IMPROVED ACUTE ON CHRONIC SYSTOLIC CHF CLINICALLY IMPROVED COPD PULMONARY HTN AFIB HTN DM OSAS AHI 38.1 BRONCHIECTASIS PLAN LASIX INHALED BRONCHODILATORS SUPPLEMENTAL O2 DAILY WT F/U CHEST X-RAYS FORMAL SLEEP STUDIES OUTPATIENT AC DR TEJEDA Problem List - Problems (1) CHF (congestive heart failure) Code(s): I50.9 - HEART FAILURE, UNSPECIFIED Qualifiers: Heart failure type: unspecified Heart failure chronicity: acute on chronic Qualified Code(s): I50.9 - Heart failure, unspecified (2) Atrial fibrillation Code(s): I48.91 - UNSPECIFIED ATRIAL FIBRILLATION Qualifiers: Atrial fibrillation type: persistent Qualified Code(s): I48.1 - Persistent atrial fibrillation (3) CAD (coronary artery disease) Code(s): I25.10 - ATHSCL HEART DISEASE OF [place] CORONARY ARTERY W/O ANG PCTRS Qualifiers: Coronary Disease-Associated Artery/Lesion type: [place] artery [place] vs. transplanted heart: [place] heart Associated angina: without angina Qualified Code(s): I25.10 - Atherosclerotic heart disease of [place] coronary artery without angina pectoris (4) CHF exacerbation Code(s): I50.9 - HEART FAILURE, UNSPECIFIED Qualifiers: Heart failure type: unspecified Qualified Code(s): I50.9 - Heart failure, unspecified (5) COPD (chronic obstructive pulmonary disease) Code(s): J44.9 - CHRONIC OBSTRUCTIVE PULMONARY DISEASE, UNSPECIFIED (6) Chest pain Code(s): R07.9 - CHEST PAIN, UNSPECIFIED Qualifiers: Chest pain type: unspecified Qualified Code(s): R07.9 - Chest pain, unspecified (7) Hypertension Code(s): I10 - ESSENTIAL (PRIMARY) HYPERTENSION Qualifiers: Hypertension type: essential hypertension Qualified Code(s): I10 - Essential (primary) hypertension (8) Shortness of breath Code(s): R06.02 - SHORTNESS OF BREATH (9) Pulmonary HTN Code(s): I27.20 - PULMONARY HYPERTENSION, UNSPECIFIED
[2018-09-09] MEDS: FLUTICASONE/SALMETEROL 100 MCG/50 MCG DISKUS IH SCH (10:00)
[2018-09-09] MEDS: NYSTATIN 100,000 UNIT/GM TOPICAL CREAM 15 GM TUBE TP SCH (10:10)
--- NOTE | 2018-09-09 10:26 | DS ---
Physical Examination Vital Signs: Vital Signs Temperature 97.8 F 09/09/18 06:00 Pulse Rate 82 09/09/18 09:23 Respiratory Rate 18 09/09/18 06:00 Blood Pressure 145/74 09/09/18 06:00 O2 Sat by Pulse Oximetry (%) 95 09/08/18 21:00 Cardiovascular: Yes: S1, S2 Respiratory: Yes: Regular, CTA Bilaterally Gastrointestinal: Yes: Normal Bowel Sounds, Soft Labs: CBC, BMP 09/04/18 12:05 09/08/18 09:32 Discharge Summary Reason For Visit: CONGESTIVE HEART FAILURE Current Active Problems CHF (congestive heart failure) (Acute) Cellulitis (Acute) Hyperglycemia, drug-induced (Acute) Hypomagnesemia (Acute) Hyponatremia (Acute) Pulmonary HTN (Acute) Stasis dermatitis of both legs (Acute) Hospital Course: - Problems (1) Hypomagnesemia Assessment/Plan: -replenished -Repeat labs normal Mg level -Seen by cardiology Code(s): E83.42 - HYPOMAGNESEMIA (2) Atrial fibrillation Assessment/Plan: -Tele monitor -rate controlled -On Pradaxa -On BB and Digoxin -Seen by Cardiology Code(s): I48.91 - UNSPECIFIED ATRIAL FIBRILLATION Qualifiers: Atrial fibrillation type: persistent Qualified Code(s): I48.1 - Persistent atrial fibrillation (3) CHF exacerbation Assessment/Plan: -Furosemide 40 mg IVP BID--80 po bid -Cardiology and pulmonary on board--EF 30 % -daily weights -Fluid restriction to 1 L -Low sodium diet Code(s): I50.9 - HEART FAILURE, UNSPECIFIED Qualifiers: Heart failure type: unspecified Qualified Code(s): I50.9 - Heart failure, unspecified (4) COPD (chronic obstructive pulmonary disease) Assessment/Plan: -Nasal O2 PRN -Pulmonary on borad -IV medrol 40 mg BID--to po 40 qd -Bronchodilators -CT scan Code(s): J44.9 - CHRONIC OBSTRUCTIVE PULMONARY DISEASE, UNSPECIFIED (5) Hyperglycemia, drug-induced Assessment/Plan: -Diabetic diet -BGM ACHS -Increase Levemir 20 units BID -Novolog sliding scale Code(s): R73.9 - HYPERGLYCEMIA, UNSPECIFIED; T50.905A - ADVERSE EFFECT OF UNSP DRUG/MEDS/BIOL SUBST, INIT Assessment/Plan see problem list Self ambulatory Seen by Physical therapy Condition: Stable - Instructions Referrals: Jessica Wooten MD [Primary Care Provider] - Disposition: HOME - Home Medications Comprehensive Discharge Medication List: Ambulatory Orders Fluticasone/Salmeterol [Advair Hfa 115-21 Mcg Inhaler] 2 inh PO BID 02/07/18 Isosorbide Mononitrate 60 mg PO DAILY 02/07/18 Polyethylene Glycol 3350 [Miralax 255 gm Btl -] 17 gm PO DAILY 02/07/18 Sennosides [Senna -] 2 tab PO HS 02/07/18 Albuterol Sulfate 0.042% [Ventolin 0.042% (Half-Strength) -] 1 amp NEB RQID amp 02/14/18 Insulin Sliding Scale [Novolog Vial Sliding Scale -] 1 vial SQ ACHS units 02/14 Atorvastatin Ca [Lipitor] 40 mg PO HS tablet 05/29/18 Dabigatran Etexilate Mesylate [Pradaxa -] 150 mg PO BID cap 05/29/18 Digoxin [Lanoxin -] 0.25 mg PO DAILY tablet 05/29/18 Furosemide [Lasix -] 80 mg PO BID@0600,1400 tablet 05/29/18 Metoprolol Succinate [Toprol XL -] 50 mg PO DAILY tab.sr.24h 05/29/18 Montelukast Na [Singulair -] 10 mg PO HS tablet 05/29/18 Potassium Chloride [K-Dur -] 20 meq PO DAILY tablet.er 05/29/18 Melatonin 10 mg PO HS 08/29/18 Prednisone 5 mg PO DAILY 08/29/18 Acetaminophen [Tylenol .Regular Strength -] 650 mg PO Q6H PRN tablet 09/03/18 Albuterol 2.5/Ipratropium 0.5 [Duoneb -] 1 amp NEB Q6H PRN amp 09/03/18 Atorvastatin Ca [Lipitor] 40 mg PO HS tablet 09/03/18 Dabigatran Etexilate Mesylate [Pradaxa -] 150 mg PO BID cap 09/03/18 Digoxin [Lanoxin -] 0.25 mg PO DAILY tablet 09/03/18 Furosemide [Lasix -] 80 mg PO BID@0600,1400 #120 tablet 09/03/18 Hydrocortisone 0.5% Ointment [Hytone 0.5% Ointment -] 1 applic TP BID PRN tube 09/03/18 Insulin Sliding Scale [Novolog Vial Sliding Scale -] 1 vial SQ ACHS units 09/03 Isosorbide Mononitrate [Imdur -] 60 mg PO DAILY tab.sr.24h 09/03/18 Lisinopril [Prinivil] 2.5 mg PO DAILY #30 tablet 09/03/18 Magnesium Oxide [Mag-Ox -] 400 mg PO BID #60 tablet 09/03/18 Melatonin 10 mg PO HS tab 09/03/18 Metoprolol Succinate [Toprol XL -] 50 mg PO DAILY tab.sr.24h 09/03/18 Montelukast Na [Singulair -] 10 mg PO HS tablet 09/03/18 Polyethylene Glycol 3350 [Miralax 119 gm Btl -] 17 gm PO DAILY bottle 09/03/18 Potassium Chloride [K-Dur -] 20 meq PO DAILY tablet.er 09/03/18 Salmeterol/Fluticasone [Advair 100Mcg/50Mcg -] 1 puff IH BID inhaler 09/03/18 Sennosides [Senna -] 2 tab PO HS tablet 09/03/18 predniSONE [Deltasone -] 5 mg PO DAILY tablet 09/03/18
[2018-09-09] MEDS: POLYETHYLENE GLYCOL 3350 119 GM BTL PO SCH (10:30)
--- NOTE | 2018-09-09 12:53 | PN ---
Progress Note, Physician History of Present Illness: Pt seen and examined at bedside. He feels that his breathing is comfortable. He denies chest pain. He denies dysuria. - Current Medication List Current Medications: Active Medications Acetaminophen (Tylenol -) 650 mg PO Q6H PRN PRN Reason: PAIN OR FEVER Last Admin: 09/08/18 20:43 Dose: 650 mg Albuterol/Ipratropium (Duoneb -) 1 amp NEB Q6H PRN PRN Reason: SHORTNESS OF BREATH Last Admin: 09/08/18 07:57 Dose: 1 amp Atorvastatin Calcium (Lipitor -) 40 mg PO HS [facility] Last Admin: 09/08/18 21:27 Dose: 40 mg Dabigatran (Pradaxa -) 150 mg PO BID [facility] Last Admin: 09/09/18 09:23 Dose: 150 mg Digoxin (Lanoxin -) 0.25 mg PO DAILY [facility] Last Admin: 09/09/18 09:23 Dose: 0.25 mg Furosemide (Lasix -) 80 mg PO BID@0600,1400 [facility] Last Admin: 09/09/18 06:27 Dose: 80 mg Guaifenesin (Robitussin -) 10 ml PO Q6H PRN PRN Reason: COUGH Last Admin: 09/06/18 09:01 Dose: 10 ml Hydrocortisone (Hytone 0.5% Ointment -) 1 applic TP BID PRN PRN Reason: DRY SKIN Last Admin: 09/08/18 21:24 Dose: 1 applic Insulin Aspart (Novolog Vial Sliding Scale -) 1 vial SQ [facility]; Protocol Last Admin: 09/09/18 06:24 Dose: Not Given Insulin Detemir (Levemir Vial) 20 units SQ BID@0700,2200 [facility] Last Admin: 09/09/18 06:25 Dose: 20 units Isosorbide Mononitrate (Imdur -) 60 mg PO DAILY [facility] Last Admin: 09/09/18 09:23 Dose: 60 mg Lisinopril (Prinivil) 2.5 mg PO DAILY [facility] Last Admin: 09/09/18 09:24 Dose: 2.5 mg Magnesium Oxide (Mag-Ox -) 400 mg PO BID [facility] Last Admin: 09/09/18 09:23 Dose: 400 mg Melatonin (Melatonin) 10 mg PO [facility] Last Admin: 09/08/18 21:27 Dose: 10 mg Metoprolol Succinate (Toprol Xl -) 50 mg PO DAILY [facility] Last Admin: 09/09/18 09:24 Dose: 50 mg Montelukast Sodium (Singulair -) 10 mg PO HS [facility] Last Admin: 09/08/18 21:26 Dose: 10 mg Nystatin (Mycostatin Cream -) 1 applic TP BID [facility] Last Admin: 09/09/18 10:10 Dose: 1 applic Polyethylene Glycol (Miralax (For Daily Use) -) 17 gm PO DAILY [facility] Last Admin: 09/09/18 10:30 Dose: Not Given Potassium Chloride (K-Dur -) 20 meq PO DAILY [facility] Last Admin: 09/09/18 09:23 Dose: 20 meq Prednisone (Deltasone -) 40 mg PO DAILY [facility] Last Admin: 09/09/18 09:23 Dose: 40 mg Fluticasone/Salmeterol (Advair 100mcg/50mcg -) 1 puff IH BID [facility] Last Admin: 09/09/18 10:00 Dose: 1 puff Senna (Senna -) 2 tab PO [facility] Last Admin: 09/08/18 21:27 Dose: Not Given - Objective Vital Signs: Vital Signs Temperature 97.8 F 09/09/18 06:00 Pulse Rate 82 09/09/18 09:23 Respiratory Rate 18 09/09/18 09:00 Blood Pressure 145/74 09/09/18 06:00 O2 Sat by Pulse Oximetry (%) 96 09/09/18 09:00 Constitutional: Yes: Calm Eyes: Yes: Conjunctiva Clear HENT: Yes: Atraumatic Cardiovascular: Yes: S1, S2 Respiratory: Yes: Wheezes Gastrointestinal: Yes: Soft, Abdomen, Obese Genitourinary: Yes: WNL Musculoskeletal: Yes: WNL Edema: Yes Edema: LLE: 1+, RLE: 1+ Integumentary: Yes: Venous Stasis Changes Neurological: Yes: Oriented Psychiatric: Yes: Oriented Labs: CBC, BMP 09/04/18 12:05 09/08/18 09:32 INR, PTT INR 1.44 (0.83-1.09) H 08/29/18 15:14 Problem List - Problems (1) Hyponatremia Code(s): E87.1 - HYPO-OSMOLALITY AND HYPONATREMIA (2) CHF (congestive heart failure) Code(s): I50.9 - HEART FAILURE, UNSPECIFIED Qualifiers: Heart failure type: unspecified Heart failure chronicity: acute on chronic Qualified Code(s): I50.9 - Heart failure, unspecified Assessment/Plan Current Medications Generic Name Dose Route Start Last Admin Trade Name Freq PRN Reason Stop Dose Admin Acetaminophen 650 mg 08/29/18 19:46 09/08/18 20:43 Tylenol - PO 650 mg Q6H PRN Administration PAIN OR FEVER Albuterol/Ipratropium 1 amp 08/29/18 19:46 09/08/18 07:57 Duoneb - NEB 1 amp Q6H PRN Administration SHORTNESS OF BREATH Atorvastatin Calcium 40 mg 08/29/18 22:00 09/08/18 21:27 Lipitor - PO 40 mg HS [facility] Administration Dabigatran 150 mg 08/30/18 10:00 09/09/18 09:23 Pradaxa - PO 150 mg BID [facility] Administration Digoxin 0.25 mg 08/30/18 10:00 09/09/18 09:23 Lanoxin - PO 0.25 mg DAILY [facility] Administration Furosemide 80 mg 09/06/18 06:00 09/09/18 06:27 Lasix - PO 80 mg BID@0600,1400 [facility] Administration Guaifenesin 10 ml 09/05/18 10:52 09/06/18 09:01 Robitussin - PO 10 ml Q6H PRN Administration COUGH Hydrocortisone 1 applic 08/30/18 20:52 09/08/18 21:24 Hytone 0.5% Ointment - TP 1 applic BID PRN Administration DRY SKIN Insulin Aspart 1 vial 09/07/18 12:16 09/09/18 06:24 Novolog Vial Sliding Scale - SQ Not Given [facility] Protocol Insulin Detemir 20 units 09/07/18 22:00 09/09/18 06:25 Levemir Vial SQ 20 units BID@0700,2200 [facility] Administration Isosorbide Mononitrate 60 mg 08/30/18 10:00 09/09/18 09:23 Imdur - PO 60 mg DAILY [facility] Administration Lisinopril 2.5 mg 08/31/18 10:00 09/09/18 09:24 Prinivil PO 2.5 mg DAILY [facility] Administration Magnesium Oxide 400 mg 09/01/18 22:00 09/09/18 09:23 Mag-Ox - PO 400 mg BID [facility] Administration Melatonin 10 mg 08/29/18 22:00 09/08/18 21:27 Melatonin PO 10 mg HS [facility] Administration Metoprolol Succinate 50 mg 08/30/18 10:00 09/09/18 09:24 Toprol Xl - PO 50 mg DAILY [facility] Administration Montelukast Sodium 10 mg 08/29/18 22:00 09/08/18 21:26 Singulair - PO 10 mg HS [facility] Administration Nystatin 1 applic 09/05/18 22:00 09/09/18 10:10 Mycostatin Cream - TP 1 applic BID [facility] Administration Polyethylene Glycol 17 gm 08/30/18 10:00 09/09/18 10:30 Miralax (For Daily Use) - PO Not Given DAILY [facility] Potassium Chloride 20 meq 08/30/18 10:00 09/09/18 09:23 K-Dur - PO 20 meq DAILY [facility] Administration Prednisone 40 mg 09/08/18 10:15 09/09/18 09:23 Deltasone - PO 40 mg DAILY [facility] Administration Fluticasone/Salmeterol 1 puff 08/29/18 22:00 09/09/18 10:00 Advair 100mcg/50mcg - IH 1 puff BID [facility] Administration Senna 2 tab 08/29/18 22:00 09/08/18 21:27 Senna - PO Not Given HS [facility] Impression 1. CHF 2. hyponatremia 3. hypomagnesemia 4. asthma 5. a-fib 6. DM Plan - cont with PO lasix - monitor bun levels, can be elevated secondary to diuresis - volume status is improved - pt will try to adhere to diet after discharge - will follow PRN Dr Domingo
[2018-09-09 13:47] VITALS: BP 128/60; PULSE 73; TEMP 98
== END 2018-09-09 15:52 | disposition home or self-care (01) | DRG 292 ==
LOC: JER 14:07 → JERBED 16:36 → J4W 21:02
PROVIDERS: ADMIT Family Medicine; ATTEND Family Medicine
DX: I11.0 Hypertensive heart disease with heart failure (principal); E87.1 Hypo-osmolality and hyponatremia; J44.1 Chronic obstructive pulmonary disease with (acute) exacerbation; I48.1 Persistent atrial fibrillation; I50.23 Acute on chronic systolic (congestive) heart failure; E83.42 Hypomagnesemia; J45.909 Unspecified asthma, uncomplicated; E11.9 Type 2 diabetes mellitus without complications; I27.20 Pulmonary hypertension, unspecified; I87.2 Venous insufficiency (chronic) (peripheral); I25.10 Atherosclerotic heart disease of native coronary artery without angina pectoris; R07.9 Chest pain, unspecified; G47.33 Obstructive sleep apnea (adult) (pediatric); E87.70 Fluid overload, unspecified; E66.9 Obesity, unspecified; Z68.37 Body mass index [BMI] 37.0-37.9, adult; E87.6 Hypokalemia
CPT/HCPCS: 36415; 71045-TC-FY; 71250-TC; 76775-TC; 76856-TC; 80048; 80053; 80061; 80162; 82550; 82947; 82962; 83036; 83721; 83735; 83880; 84443; 84484; 85025; 85027; 85610; 90688; 93005; 93010; 93306-TC; 94640; 97116-GP; 97161-GP; 99285-25; G0008; J1644

== ENCOUNTER 2018-09-23 21:16 | Inpatient (IN) | payer OTHER ==
--- NOTE | 2018-09-23 21:34 | PDOC ---
History of Present Illness - General Chief Complaint: Shortness of Breath Stated Complaint: CHEST PAIN Time Seen by Provider: 09/23/18 21:34 - History of Present Illness Initial Comments: 09/23/18 22:06 The patient is a 63 year old male with a PMH of COPD (not on home O2), AFib (on Dabigitran) CAD (s/p stent x1), HTN, HLD, NIDDM and CHF (as per EMR, LV systolic dysfunction with EF 30% in 08/2018) who was a rapid response 2/2 to acute onset of chest tightness during a sleep study in our facility. Tightness is substernal and feels like "fluid is in my lungs" Non-radiating, no lightheadedness, palpitation, nausea, diaphoresis. H/o similar chest pain with his COPD exacerbation last month. Was scheduled for a stress test, however has not been able to comply. Allergy: Iodinated contrast Surgical: Stent x1 Social: former smoker, denies other toxic habits PMD: Dr. Wooten Primary Care Coordinator: @ [facility], requests [facility] referral; evaluated by Dr. Mix group on prior occasion Head Of Operation And Logistics: Dr. Gregory As per EMR, patient evaluated in 08/2018 for similar complaint as well as nausea and diarrhea at which time he was admitted for acute on chronic CHF exacerbation, was scheduled for a sleep study at discharge. Past History - Past Medical History Allergies/Adverse Reactions: Allergies Allergy/AdvReac Type Severity Reaction Status Date / Time Iodinated Contrast- Oral and AdvReac Intermediate Nausea Verified 08/29/18 14:38 IV Dye Home Medications: Ambulatory Orders Fluticasone/Salmeterol [Advair Hfa 115-21 Mcg Inhaler] 2 inh PO BID 02/07/18 Isosorbide Mononitrate 60 mg PO DAILY 02/07/18 Polyethylene Glycol 3350 [Miralax 255 gm Btl -] 17 gm PO DAILY 02/07/18 Sennosides [Senna -] 2 tab PO HS 02/07/18 Albuterol Sulfate 0.042% [Ventolin 0.042% (Half-Strength) -] 1 amp NEB RQID amp 02/14/18 Insulin Sliding Scale [Novolog Vial Sliding Scale -] 1 vial SQ ACHS units 02/14 Atorvastatin Ca [Lipitor] 40 mg PO HS tablet 05/29/18 Dabigatran Etexilate Mesylate [Pradaxa -] 150 mg PO BID cap 05/29/18 Digoxin [Lanoxin -] 0.25 mg PO DAILY tablet 05/29/18 Furosemide [Lasix -] 80 mg PO BID@0600,1400 tablet 05/29/18 Metoprolol Succinate [Toprol XL -] 50 mg PO DAILY tab.sr.24h 05/29/18 Montelukast Na [Singulair -] 10 mg PO HS tablet 05/29/18 Potassium Chloride [K-Dur -] 20 meq PO DAILY tablet.er 05/29/18 Melatonin 10 mg PO HS 08/29/18 Prednisone 5 mg PO DAILY 08/29/18 Acetaminophen [Tylenol .Regular Strength -] 650 mg PO Q6H PRN tablet 09/03/18 Albuterol 2.5/Ipratropium 0.5 [Duoneb -] 1 amp NEB Q6H PRN amp 09/03/18 Atorvastatin Ca [Lipitor] 40 mg PO HS tablet 09/03/18 Dabigatran Etexilate Mesylate [Pradaxa -] 150 mg PO BID cap 09/03/18 Digoxin [Lanoxin -] 0.25 mg PO DAILY tablet 09/03/18 Furosemide [Lasix -] 80 mg PO BID@0600,1400 #120 tablet 09/03/18 Hydrocortisone 0.5% Ointment [Hytone 0.5% Ointment -] 1 applic TP BID PRN tube 09/03/18 Insulin Sliding Scale [Novolog Vial Sliding Scale -] 1 vial SQ ACHS units 09/03 Isosorbide Mononitrate [Imdur -] 60 mg PO DAILY tab.sr.24h 09/03/18 Lisinopril [Prinivil] 2.5 mg PO DAILY #30 tablet 09/03/18 Magnesium Oxide [Mag-Ox -] 400 mg PO BID #60 tablet 09/03/18 Melatonin 10 mg PO HS tab 09/03/18 Metoprolol Succinate [Toprol XL -] 50 mg PO DAILY tab.sr.24h 09/03/18 Montelukast Na [Singulair -] 10 mg PO HS tablet 09/03/18 Polyethylene Glycol 3350 [Miralax 119 gm Btl -] 17 gm PO DAILY bottle 09/03/18 Potassium Chloride [K-Dur -] 20 meq PO DAILY tablet.er 09/03/18 Salmeterol/Fluticasone [Advair 100Mcg/50Mcg -] 1 puff IH BID inhaler 09/03/18 Sennosides [Senna -] 2 tab PO HS tablet 09/03/18 predniSONE [Deltasone -] 5 mg PO DAILY tablet 09/03/18 Asthma: Yes Cardiac Disorders: Yes (A.fib, CAD) COPD: Yes CHF: Yes Diabetes: Yes HTN: Yes Hypercholesterolemia: Yes Psychiatric Problems: Yes (anxiety/depression) - Surgical History Cardiac Surgery: Yes (Cardiac Stent) Orthopedic Surgery: Yes - Suicide/Smoking/Psychosocial Hx Smoking History: Former smoker Have you smoked in the past 12 months: No Number of Cigarettes Smoked Daily: 0 If you are a former smoker, when did you quit?: 12 MONTHS Information on smoking cessation initiated: No 'Breaking Loose' booklet given: 02/07/18 Hx Alcohol Use: No Drug/Substance Use Hx: No Substance Use Type: None Hx Substance Use Treatment: No Review of Systems - Review of Systems Constitutional: No: Chills, Fever HEENTM: No: Blurred Vision, Double Vision Respiratory: Yes: Cough, Shortness of Breath. No: Productive cough Cardiac (ROS): Yes: Chest Tightness. No: Lightheadedness, Palpitations ABD/GI: No: Constipated, Diarrhea, Nausea, Vomiting *Physical Exam - Vital Signs Last Vital Signs Temp Pulse Resp BP Pulse Ox 97.7 F 67 25 H 112/67 95 09/23/18 21:26 09/23/18 21:26 09/23/18 21:26 09/23/18 21:26 09/23/18 21:26 - Physical Exam General Appearance: Yes: Nourished, Obese HEENT: positive: Normal Voice, Hearing Grossly Normal Neck: positive: Trachea midline, Supple Respiratory/Chest: positive: Other (diffuse expiratory wheezing). negative: Crackles Cardiovascular: positive: S1, S2, Edema (1+ B/L LE pitting edema) Gastrointestinal/Abdominal: positive: Normal Bowel Sounds, Soft Extremity: positive: Normal Capillary Refill, Normal Inspection Integumentary: positive: Normal Color, Dry, Warm Neurologic: positive: Fully Oriented, Alert ED Treatment Course - LABORATORY CBC & Chemistry Diagram: 09/23/18 22:25 09/23/18 22:26 Medical Decision Making - Medical Decision Making 09/23/18 21:49 63 year old male, rapid response from inpatient medicine floor following chest tightness during sleep study. VS @ bedside 94% on RA, SpO2 94% on RA, HR 90's. Frontal diagnosis: r/o ACS, COPD exacerbation, PNA, msk. Will obtain Troponin , ECG, CXR. Duo-William, Solumedrol. 09/23/18 22:54 ECG concerning for new TWI in Lead II Troponin pending 09/23/18 22:56 09/23/18 23:40 Troponin (-) x1 BNP 780 (previous BNP 3202) As patient has new ECG changes, will admit for serial troponins, cardiac evaluation Hospitalist paged 09/23/18 23:44 Patient reassessed @ bedside, wheezing improved. VSS 09/23/18 23:49 Case d/w IDALIA Falcon. Will admit OBS Tele. Repeat Troponin ordered for 0200 *DC/Admit/Observation/Transfer Diagnosis at time of Disposition: Chest tightness - Discharge Dispostion Condition at time of disposition: Fair Decision to Admit order: Yes - Referrals Referrals: Jessica Wooten MD [Primary Care Provider] - - Patient Instructions - Post Discharge Activity
--- NOTE | 2018-09-23 21:44 | PDOC ---
Attending Attestation - HPI HPI: 09/23/18 22:57 The patient is a 63 year old male, with a significant past medical history of hypertension, atrial fibrillation, CHF, diabetes mellitus, who presents to the emergency department with, shortness of breath. As per patient, he was at the sleep study clinic when he began to experience shortness of breath. He is currently on Prednisone. He denies any recent fevers, chills, headache or dizziness. He denies any recent nausea, vomit, diarrhea or constipation. He denies any recent chest pain. He denies any recent dysuria, frequency, urgency or hematuria. Allergies: Iodinated Contrast - Oral and IV Dye Primary Care Physician: Dr. Wooten - Physicial Exam PE: 09/23/18 23:34 GENERAL: The patient is in no acute distress. +HEAD: [place] face. EYES: PERRLA, EOMI, sclera anicteric, conjunctiva clear. ENT: Ears normal, nares patent, oropharynx clear without exudates. Moist mucous membranes. NECK: Normal range of motion, supple without lymphadenopathy, JVD, or masses. +LUNGS:Diffuse expiratory wheezing. HEART:Regular rate and rhythm, normal S1 and S2 without murmur, rub or gallop. ABDOMEN: Soft, nontender, normoactive bowel sounds. No guarding, no rebound. No masses palpable. +BACK: [place] hump. EXTREMITIES: Normal range of motion, no edema. No clubbing or cyanosis. No erythema, or tenderness. NEUROLOGICAL: Cranial nerves II through XII grossly intact. Normal speech. No focal neurological deficits. MUSCULOSKELETAL: Back non-tender to palpation, no CVA tenderness +SKIN:Diffuse erythematous macular rash to the face. <Dajuan Soria - Last Filed: 09/23/18 23:34> - Resident Resident Name: Raissa Reich - ED Attending Attestation I have performed the following: I have examined & evaluated the patient, The case was reviewed & discussed with the resident, I agree w/resident's findings & plan, Exceptions are as noted - Medical Decision Making 09/24/18 00:28 63 yo M h/o DM, HTN, COPD p/w chest pain which he states is his COPD exacerbation Labs sent - 09/24/18 00:29 Laboratory Tests 09/23/18 09/23/18 22:25 22:26 WBC 10.1 H Hgb 14.8 Hct 44.7 Plt Count 134 D BUN 10 Creatinine 0.8 Troponin I 0.02 B-Natriuretic Peptide 780.4 H CXR: no effusion, no consolidation Neb given, Solumedrol given Will plan to place on observation <Chloé Willett - Last Filed: 09/24/18 00:30> Attestations - Attestations 09/23/18 22:58 Documentation prepared by Dajuan Soria, acting as electromedical equipment repairer for Chloé Willett MD. <Dajuan Soria - Last Filed: 09/23/18 23:34>
[2018-09-23 22:40] LABS: BASO % 0.6 % (0-2.0); EOS % 3.5 % (0-4.5); HEMATOCRIT 44.7 % (35.4-49); HEMOGLOBIN 14.8 GM/dL (11.7-16.9); LYMPH % 9.7 % (8-40); MCH 28.8 pg (25.7-33.7); MCHC 33.1 g/dl (32.0-35.9); MEAN CELL VOLUME 86.9 fl (80-96); MEAN PLT VOLUME 9.3 fl (7.5-11.1); MONO % 5.8 % (3.8-10.2); NEUT % 80.4 % (42.8-82.8); PLATELET COUNT 134 K/MM3 (134-434); RBC 5.15 M/mm3 (4.00-5.60); RDW 17.1 % (11.9-15.9); WHITE BLOOD COUNT 10.1 K/mm3 (4.0-10.0)
[2018-09-23] MEDS ORDERED: methylPREDNISolone NA SUCC 125 MG/2 ML VIAL IVPUSH ONE (22:49)
[2018-09-23] MEDS ORDERED: ALBUTEROL SO4 2.5/IPRATROPIUM 0.5 INH SOL 3 ML VIAL.NEB. NEB ONE ×2 (22:49→22:56)
[2018-09-23] MEDS ORDERED: methylPREDNISolone NA SUCC 125 MG/2 ML VIAL ONE (22:56)
[2018-09-23 23:09] LABS: ALBUMIN 3.2 g/dl (3.4-5.0); ALK PHOS 157 U/L (45-117); ANION GAP 10 MMOL/L (8-16); BILIRUBIN,TOTAL 1.1 mg/dL (0.2-1); BLOOD UREA NITROGEN 10 mg/dL (7-18); CALCIUM 8.7 mg/dL (8.5-10.1); CHLORIDE 92 mmol/L (98-107); CO2 30 mmol/L (21-32); CREATININE 0.8 mg/dL (0.55-1.3); GLUCOSE,RANDOM 115 mg/dL (74-106); N-TERMINAL BNP 780.4 pg/ml (5-125); POTASSIUM 3.6 mmol/L (3.5-5.1); SGOT/AST 23 U/L (15-37); SGPT/ALT 24 U/L (13-61); SODIUM 133 mmol/L (136-145); TOT PROT 7.5 g/dl (6.4-8.2)
--- NOTE | 2018-09-23 23:50 | HP ---
Admitting History and Physical - Primary Care Physician PCP: Sara Tinoco - Admission Chief Complaint: Chest Tightness, Dizziness, Swollen Ankles History of Present Illness: This is a 63 y/o man PMHx of Afib (on Pradaxa), CAD s/p stents x2, LV systolic dysfunction with EF 30% in 08/2018), HTN, HLD, COPD, IDDM, Morbid Obesity. Who presents to the ED, as a rapid response secondary to acute onset of chest tightness during a sleep study in our facility.The patient reported having non- radiating, substernal tightness which he described as "fluid in my lungs". He reports having dizziness and swelling to both ankles. Patient reports having the same chest tightness on his last admission in August for COPD Exacerbation. Patient reports having a Stress Test scheduled but has not been able to tolerate it. Patient denies fever, chills, palpitations, N/V/D, constipation, dysuria. History Source: Patient, Medical Record Limitations to Obtaining History: No Limitations - Past Medical History Cardiovascular: Yes: AFIB, CAD, CHF, HTN Pulmonary: Yes: COPD Infectious Disease: Yes: Other (pneumonia and the flu). No: Tuberculosis Endocrine: Yes: Diabetes Mellitus - Past Surgical History Past Surgical History: Yes: Stent - Smoking History Smoking history: Former smoker Have you smoked in the past 12 months: No Aproximately how many cigarettes per day: 0 If you are a former smoker, when did you quit?: 12 MONTHS - Alcohol/Substance Use Hx Alcohol Use: Yes (Former) History of Substance Use: reports: None - Social History Usual Living Arrangement: Yes: Other (Boarding House) ADL: Independent (ambulates with cane) History of Recent Travel: No Home Medications - Allergies Allergies/Adverse Reactions: Allergies Allergy/AdvReac Type Severity Reaction Status Date / Time Iodinated Contrast- Oral and AdvReac Intermediate Nausea Verified 08/29/18 14:38 IV Dye - Home Medications Home Medications: Ambulatory Orders Fluticasone/Salmeterol [Advair Hfa 115-21 Mcg Inhaler] 2 inh PO BID 02/07/18 Isosorbide Mononitrate 60 mg PO DAILY 02/07/18 Polyethylene Glycol 3350 [Miralax 255 gm Btl -] 17 gm PO DAILY 02/07/18 Sennosides [Senna -] 2 tab PO HS 02/07/18 Albuterol Sulfate 0.042% [Ventolin 0.042% (Half-Strength) -] 1 amp NEB RQID amp 02/14/18 Insulin Sliding Scale [Novolog Vial Sliding Scale -] 1 vial SQ ACHS units 02/14 Atorvastatin Ca [Lipitor] 40 mg PO HS tablet 05/29/18 Dabigatran Etexilate Mesylate [Pradaxa -] 150 mg PO BID cap 05/29/18 Digoxin [Lanoxin -] 0.25 mg PO DAILY tablet 05/29/18 Furosemide [Lasix -] 80 mg PO BID@0600,1400 tablet 05/29/18 Metoprolol Succinate [Toprol XL -] 50 mg PO DAILY tab.sr.24h 05/29/18 Montelukast Na [Singulair -] 10 mg PO HS tablet 05/29/18 Potassium Chloride [K-Dur -] 20 meq PO DAILY tablet.er 05/29/18 Melatonin 10 mg PO HS 08/29/18 Prednisone 5 mg PO DAILY 08/29/18 Acetaminophen [Tylenol .Regular Strength -] 650 mg PO Q6H PRN tablet 09/03/18 Albuterol 2.5/Ipratropium 0.5 [Duoneb -] 1 amp NEB Q6H PRN amp 09/03/18 Atorvastatin Ca [Lipitor] 40 mg PO HS tablet 09/03/18 Dabigatran Etexilate Mesylate [Pradaxa -] 150 mg PO BID cap 09/03/18 Digoxin [Lanoxin -] 0.25 mg PO DAILY tablet 09/03/18 Furosemide [Lasix -] 80 mg PO BID@0600,1400 #120 tablet 09/03/18 Hydrocortisone 0.5% Ointment [Hytone 0.5% Ointment -] 1 applic TP BID PRN tube 09/03/18 Insulin Sliding Scale [Novolog Vial Sliding Scale -] 1 vial SQ ACHS units 09/03 Isosorbide Mononitrate [Imdur -] 60 mg PO DAILY tab.sr.24h 09/03/18 Lisinopril [Prinivil] 2.5 mg PO DAILY #30 tablet 09/03/18 Magnesium Oxide [Mag-Ox -] 400 mg PO BID #60 tablet 09/03/18 Melatonin 10 mg PO HS tab 09/03/18 Metoprolol Succinate [Toprol XL -] 50 mg PO DAILY tab.sr.24h 09/03/18 Montelukast Na [Singulair -] 10 mg PO HS tablet 09/03/18 Polyethylene Glycol 3350 [Miralax 119 gm Btl -] 17 gm PO DAILY bottle 09/03/18 Potassium Chloride [K-Dur -] 20 meq PO DAILY tablet.er 09/03/18 Salmeterol/Fluticasone [Advair 100Mcg/50Mcg -] 1 puff IH BID inhaler 09/03/18 Sennosides [Senna -] 2 tab PO HS tablet 09/03/18 predniSONE [Deltasone -] 5 mg PO DAILY tablet 09/03/18 Family Disease History - Family Disease History Family Disease History: Respiratory: Mother (Asthma, age 35), Other: Father (Alcoholic, ) Review of Systems - Review of Systems Constitutional: reports: No Symptoms Eyes: reports: No Symptoms HENT: reports: No Symptoms Neck: reports: No Symptoms Cardiovascular: reports: Chest Pain, Edema, Shortness of Breath Respiratory: reports: Cough Gastrointestinal: reports: No Symptoms (swollen ankles) Genitourinary: reports: No Symptoms Breasts: reports: No Symptoms Reported Musculoskeletal: reports: No Symptoms Integumentary: reports: No Symptoms Neurological: reports: Dizziness Endocrine: reports: No Symptoms Hematology/Lymphatic: reports: No Symptoms Psychiatric: reports: No Symptoms (tightness) Physical Examination Vital Signs: Vital Signs Temperature 97.7 F 09/23/18 21:26 Pulse Rate 67 09/23/18 21:26 Respiratory Rate 25 H 09/23/18 21:26 Blood Pressure 112/67 09/23/18 21:26 O2 Sat by Pulse Oximetry (%) 95 09/23/18 21:26 Constitutional: Yes: Well Nourished, No Distress, Anxious, Obese Eyes: Yes: WNL, Conjunctiva Clear, EOM Intact, PERRL HENT: Yes: WNL, Atraumatic, Normocephalic Neck: Yes: WNL, Supple, Trachea Midline Cardiovascular: Yes: Pulse Irregular, S1, S2 Respiratory: Yes: Rhonchi Gastrointestinal: Yes: WNL, Normal Bowel Sounds, Soft, Abdomen, Obese Renal/: Yes: WNL Breast(s): Yes: WNL Musculoskeletal: Yes: WNL Extremities: Yes: WNL Edema: Yes Edema: LLE: Trace, RLE: Trace Peripheral Pulses WNL: Yes Integumentary: Yes: Erythema (LLE), Venous Stasis Changes Neurological: Yes: WNL, Alert, Oriented, Cran Nerves II-XII Intact ...Motor Strength: WNL Psychiatric: Yes: WNL, Alert, Oriented Labs: CBC, BMP 09/23/18 22:25 09/23/18 22:26 Laboratory Results - last 24 hr 09/23/18 09/23/18 09/24/18 22:25 22:26 01:39 WBC 10.1 H RBC 5.15 Hgb 14.8 Hct 44.7 MCV 86.9 MCH 28.8 MCHC 33.1 RDW 17.1 H Plt Count 134 D MPV 9.3 Absolute Neuts (auto) 8.1 H Neutrophils % 80.4 Lymphocytes % 9.7 Monocytes % 5.8 Eosinophils % 3.5 Basophils % 0.6 Nucleated RBC % 0 Sodium 133 L Potassium 3.6 Chloride 92 L Carbon Dioxide 30 Anion Gap 10 BUN 10 Creatinine 0.8 Creat Clearance w eGFR > 60 Random Glucose 115 H Calcium 8.7 Phosphorus Magnesium Total Bilirubin 1.1 H AST 23 ALT 24 Alkaline Phosphatase 157 H Creatine Kinase 57 63 Troponin I 0.02 0.02 B-Natriuretic Peptide 780.4 H Total Protein 7.5 Albumin 3.2 L Intake & Output 09/21/18 09/22/18 09/23/18 09/24/18 23:59 23:59 23:59 23:59 Weight 99.79 kg Imaging - Results Chest X-ray: Report Reviewed, Image Reviewed EKG: Image Reviewed Problem List - Problems (1) Chest tightness Assessment/Plan: Likely secondary to COPD exacerbation vs CHF excerbation vs ACS Continue Cardiac monitoring HEART Score 4 EKG- Afib with RVR Solumederol given in ED for COPD exacerbation Will give Asa 162 now for ACS Serial Enzymes Appreciate Cardiology consult Appreciate Pulmonology consult Monitor CBC, BMP Code(s): R07.89 - OTHER CHEST PAIN (2) COPD with acute exacerbation Assessment/Plan: Solumederol given in ED, continue with taper Chest Xray report- no infiltrate, no effusion Appreciate Pulmonology consult Duonebs Peak flows O2 prn Code(s): J44.1 - CHRONIC OBSTRUCTIVE PULMONARY DISEASE W (ACUTE) EXACERBATION (3) Shortness of breath Assessment/Plan: Likely secondary to COPD exacerbation Chest Xray-reviewed Continue Duonebs O2 Monitor vitals Code(s): R06.02 - SHORTNESS OF BREATH (4) CHF (congestive heart failure) Assessment/Plan: BNP 780 Chest xray image- ns CHF, no effusion, no infiltrate Continue home medications O2 prn Monitor CBC, BMP Daily weights INOs Code(s): I50.9 - HEART FAILURE, UNSPECIFIED Qualifiers: Heart failure type: unspecified Heart failure chronicity: acute on chronic Qualified Code(s): I50.9 - Heart failure, unspecified (5) CAD (coronary artery disease) Assessment/Plan: Continue home meds EKG- reviewed Chest xray reviewed Code(s): I25.10 - ATHSCL HEART DISEASE OF [place] CORONARY ARTERY W/O ANG PCTRS Qualifiers: Coronary Disease-Associated Artery/Lesion type: [place] artery [place] vs. transplanted heart: [place] heart Associated angina: without angina Qualified Code(s): I25.10 - Atherosclerotic heart disease of [place] coronary artery without angina pectoris (6) Atrial fibrillation Assessment/Plan: EKG- reviewed [id number] Continue Pradaxa Code(s): I48.91 - UNSPECIFIED ATRIAL FIBRILLATION Qualifiers: Atrial fibrillation type: persistent Qualified Code(s): I48.1 - Persistent atrial fibrillation (7) Hypertension Assessment/Plan: Stable Monitor BP Continue home meds Monitor renal function Code(s): I10 - ESSENTIAL (PRIMARY) HYPERTENSION Qualifiers: Hypertension type: essential hypertension Qualified Code(s): I10 - Essential (primary) hypertension (8) Hypercholesterolemia Assessment/Plan: Continue home med Monitor LFTs Code(s): E78.0 - PURE HYPERCHOLESTEROLEMIA * DO NOT USE * (9) DVT prophylaxis Assessment/Plan: OOB SCDs Continue Pradaxa Code(s): [id number] - Assessment/Plan 63 y/o man with a PMHx of: Afib (apixiban), CAD s/p stents x2, CHF, HTN, HLD, IDDM, COPD, Morbid Obesity. Placed in Telemetry Observation for Chest Pain r/o ACS for further evaluation of their emergent condition. Plan: FEN Po fluids as tolerated Replete lytes as indicated Low Na, Diabetic Diet DVT ppx OOB SCDs Continue Pradaxa Dispo: Tele Observation Visit type - Emergency Visit Emergency Visit: Yes ED Registration Date: 09/23/18 Care time: The patient presented to the Emergency Department on the above date and was hospitalized for further evaluation of their emergent condition. - New Patient This patient is new to me today: Yes Date on this admission: 09/24/18 - Critical Care Critical Care patient: No
[2018-09-23] MEDS ORDERED: ASPIRIN 81 MG CHEWABLE TABLETS PO ONE (23:57)
[2018-09-24] MEDS ORDERED: ASPIRIN 81 MG CHEWABLE TABLETS ONE (00:05)
[2018-09-24] MEDS ORDERED: ACETAMINOPHEN 500 MG TABLET (FP) PO ONE (00:53)
[2018-09-24] MEDS ORDERED: ACETAMINOPHEN 325 MG TABLET (FP) ONE (01:34)
[2018-09-24] MEDS ORDERED: INSULIN REGULAR HUMAN 100 UNITS/ML *VIAL IVPUSH ONE (04:02)
[2018-09-24 06:08] LABS: BASO % 2.1 % (0-2.0); EOS % 0.2 % (0-4.5); HEMATOCRIT 45.5 % (35.4-49); LYMPH % 3.8 % (8-40); MCH 28.8 pg (25.7-33.7); MCHC 32.9 g/dl (32.0-35.9); MEAN CELL VOLUME 87.5 fl (80-96); MEAN PLT VOLUME 9.7 fl (7.5-11.1); MONO % 0.8 % (3.8-10.2); NEUT % 93.1 % (42.8-82.8); PLATELET COUNT 128 K/MM3 (134-434); RDW 17.1 % (11.9-15.9); WHITE BLOOD COUNT 9.4 K/mm3 (4.0-10.0)
[2018-09-24 07:59] LABS: ANION GAP 10 MMOL/L (8-16); BLOOD UREA NITROGEN 14 mg/dL (7-18); CALCIUM 8.5 mg/dL (8.5-10.1); CHLORIDE 91 mmol/L (98-107); CO2 28 mmol/L (21-32); CREATININE 0.9 mg/dL (0.55-1.3); MAGNESIUM 1.4 mg/dL (1.8-2.4); PHOSPHOROUS 4.7 mg/dL (2.5-4.9); POTASSIUM 4.4 mmol/L (3.5-5.1); SODIUM 129 mmol/L (136-145)
[2018-09-24 08:08] LABS: GLUCOSE,RANDOM 325 mg/dL (74-106)
--- NOTE | 2018-09-24 09:02 | PN ---
Progress Note, Physician Chief Complaint: AWAKE ALERT EVENTS AND NOTES REVIEWED - Objective Vital Signs: Vital Signs Temperature 98.6 F 09/24/18 07:43 Pulse Rate 80 09/24/18 07:43 Respiratory Rate 16 09/24/18 07:43 Blood Pressure 141/85 09/24/18 07:43 O2 Sat by Pulse Oximetry (%) 98 09/24/18 05:50 Constitutional: Yes: Mild Distress Eyes: Yes: WNL HENT: Yes: WNL Neck: Yes: WNL Cardiovascular: Yes: WNL Respiratory: Yes: Cough, On Nasal O2, SOB Gastrointestinal: Yes: WNL Genitourinary: Yes: WNL Musculoskeletal: Yes: Muscle Weakness Extremities: Yes: WNL Edema: Yes Edema: LLE: 2+, RLE: 2+ Peripheral Pulses WNL: Yes Integumentary: Yes: WNL Wound/Incision: Yes: Clean/Dry Neurological: Yes: Pre-Existing Deficit ...Motor Strength: LLE, RLE Psychiatric: Yes: Other Labs: CBC, BMP 09/24/18 05:45 09/24/18 05:45 Problem List - Problems (1) Chest tightness Code(s): R07.89 - OTHER CHEST PAIN (2) Atrial fibrillation Code(s): I48.91 - UNSPECIFIED ATRIAL FIBRILLATION Qualifiers: Atrial fibrillation type: persistent Qualified Code(s): I48.1 - Persistent atrial fibrillation (3) CAD (coronary artery disease) Code(s): I25.10 - ATHSCL HEART DISEASE OF [place] CORONARY ARTERY W/O ANG PCTRS Qualifiers: Coronary Disease-Associated Artery/Lesion type: [place] artery [place] vs. transplanted heart: [place] heart Associated angina: without angina Qualified Code(s): I25.10 - Atherosclerotic heart disease of [place] coronary artery without angina pectoris (4) CHF exacerbation Code(s): I50.9 - HEART FAILURE, UNSPECIFIED Qualifiers: Heart failure type: unspecified Qualified Code(s): I50.9 - Heart failure, unspecified (5) COPD with acute exacerbation Code(s): J44.1 - CHRONIC OBSTRUCTIVE PULMONARY DISEASE W (ACUTE) EXACERBATION Assessment/Plan IV STEROIDS NEBS 02 SUPPORT PULM EVAL OOB TO CHAIR BGM, SSI DM
[2018-09-24] MEDS: ISOSORBIDE MONONITRATE 60 MG TAB.SR.24H (FP) PO SCH (10:15)
[2018-09-24] MEDS: DIGOXIN 0.25 MG TABLET (FP) PO SCH (10:16)
[2018-09-24] MEDS: LISINOPRIL 5 MG TABLET (FP) PO SCH (10:16)
[2018-09-24] MEDS ORDERED: DIGOXIN 0.25 MG TABLET (FP) ONE (10:17)
[2018-09-24] MEDS ORDERED: LISINOPRIL 5 MG TABLET (FP) ONE (10:17)
[2018-09-24] MEDS ORDERED: ISOSORBIDE MONONITRATE 60 MG TAB.SR.24H (FP) PO ONE (10:18)
[2018-09-24] MEDS: DABIGATRAN ETEXILATE MESYLATE 150 MG CAPSULE PO SCH ×2 (11:05→22:20)
[2018-09-24] MEDS ORDERED: PT OWN MED DRAWER 7, Y5N ONE ×3 (11:08→21:38)
[2018-09-24] MEDS: INSULIN SLIDING SCALE (NOVOLOG) 1 VIAL SQ SCH ×3 (11:20→22:21)
--- NOTE | 2018-09-24 11:32 | EKG ---
Test Reason : Blood Pressure : / mmHG Vent. Rate : 106 BPM Atrial Rate : 111 BPM P-R Int : 000 ms QRS Dur : 088 ms QT Int : 350 ms P-R-T Axes : 000 011 012 degrees QTc Int : 464 ms ATRIAL FIBRILLATION WITH RAPID VENTRICULAR RESPONSE NONSPECIFIC ST ABNORMALITY ABNORMAL ECG WHEN COMPARED WITH ECG OF 29-AUG-2018 15:42, NONSPECIFIC T WAVE ABNORMALITY, IMPROVED IN LATERAL LEADS Confirmed by ROLY POWELL, DILAN ([id number]) on 09/24/2018 11:32:21 AM Referred By: Confirmed By:DILAN DUNHAM MD
[2018-09-24 11:55] LABS: ACANTHOCYTES 0; ANISOCYTOSIS 0; HELMET CELLS 0; HOWELL-JOLLY BODIES 0; MACROCYTOSIS 0; OVALOCYTE 0; PLATELET ESTIMATE DECREASED; ROULEAU 0; SICKELED CELLS 0; TARGET CELLS 0; TEAR DROP CELLS 0; TOXIC GRANULATION 0
[2018-09-24] MEDS ORDERED: INSULIN REGULAR HUMAN 100 UNITS/ML *VIAL ONE (11:57)
[2018-09-24 12:54] LABS: ANION GAP 13 MMOL/L (8-16); BLOOD UREA NITROGEN 20 mg/dL (7-18); CALCIUM 8.4 mg/dL (8.5-10.1); CHLORIDE 91 mmol/L (98-107); CO2 22 mmol/L (21-32); CREATININE 1.1 mg/dL (0.55-1.3); SODIUM 125 mmol/L (136-145)
[2018-09-24 12:57] LABS: GLUCOSE,RANDOM 424 mg/dL (74-106)
[2018-09-24 12:58] LABS: POTASSIUM 5.8 mmol/L (3.5-5.1)
--- NOTE | 2018-09-24 15:17 | CONSULT ---
Consultation: REQUESTING PROVIDER: Dr Wooten CONSULT REQUEST: We have been asked to medically evaluate this patient for chest pain. HISTORY OF PRESENT ILLNESS: The patient is a 63 year old male with a PMH of cardiac non-ischemic cardiomyopathy, s/p cardiac cath in 2016, HF with EF 30-35%, HTN, A.Fib. on Pradaxa, COPD, DMII, dyslipidemia, obesity, admitted to the hospital for evaluation of chest pain. The patient states that he came to sleep study clinic , when he felt SOB associated with chest pain. The chest pain is chronic, mid- sternal, 9/10 in severity, worse with inspiration, coughing, sharp in nature, radiating to the back. On admission the patient also was complaining of wheezing. He denies palpitations, dyspnea with exertion, dizziness, recent change in medications, increased swelling. He has been taking Prednisone for COPD for unknown time. 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 FH: Mother, from asthma at age 35, father had "everything", age 49 REVIEW OF SYSTEMS: CONSTITUTIONAL: Absent: fever, chills, diaphoresis, generalized weakness HEENT: Absent: nasal congestion, throat pain CARDIOVASCULAR: chest pain, peripheral edema Absent: syncope, palpitations, irregular heart rate, lightheadedness RESPIRATORY: wheezing, cough, shortness of breath, Absent:dyspnea with exertion, orthopnea, stridor, hemoptysis GASTROINTESTINAL: Absent: abdominal pain, nausea, vomiting, diarrhea, constipation, GENITOURINARY: Absent: dysuria, frequency, urgency, hesitancy, hematuria MUSCULOSKELETAL: back pain, Absent: myalgia, arthralgia, joint swelling, neck pain SKIN: Absent: rash, itching NEUROLOGIC: Absent: headache, focal weakness or paresthesias, dizziness PHYSICAL EXAMINATION Vital Signs - 24 hr 09/23/18 09/24/18 09/24/18 21:26 05:50 07:43 Temperature 97.7 F 98.1 F 98.6 F Pulse Rate 67 Pulse Rate [ 85 80 Apical] Respiratory 25 H 19 16 Rate Blood Pressure 112/67 Blood Pressure 112/64 141/85 [Right Arm] O2 Sat by Pulse 95 98 Oximetry (%) 09/24/18 09/24/18 11:32 11:43 Temperature 98.0 F 97.8 F Pulse Rate Pulse Rate [ 77 77 Apical] Respiratory 18 16 Rate Blood Pressure Blood Pressure 148/85 148/85 [Right Arm] O2 Sat by Pulse 99 96 Oximetry (%) GENERAL: Awake, alert, and fully oriented, in no acute distress. HEAD: Normal with no signs of trauma. EYES: Extraocular movements intact, sclera anicteric, conjunctiva clear. EARS, NOSE, THROAT: Moist mucous membranes. NECK: Normal range of motion, supple without lymphadenopathy, JVD. LUNGS: Diminished breath sounds bilaterally. No wheezes, and no crackles. No accessory muscle use. HEART: irregular rate and rhythm, normal S1 and S2 without murmur, rub or gallop , no tenderness to palpation ABDOMEN: Soft, nontender, not distended UPPER EXTREMITIES: No peripheral edema. LOWER EXTREMITIES: 2+ pulses, warm, 1+ peripheral edema, chronic venous stasis changes. PSYCHIATRIC: Cooperative. Good eye contact. SKIN: Warm, dry, no rashes. Laboratory Results - last 24 hr 09/23/18 09/23/18 09/24/18 22:25 22:26 01:39 WBC 10.1 H RBC 5.15 Hgb 14.8 Hct 44.7 MCV 86.9 MCH 28.8 MCHC 33.1 RDW 17.1 H Plt Count 134 D MPV 9.3 Absolute Neuts (auto) 8.1 H Neutrophils % 80.4 Neutrophils % (Manual) Band Neutrophils % Lymphocytes % 9.7 Lymphocytes % (Manual) Monocytes % 5.8 Monocytes % (Manual) Eosinophils % 3.5 Eosinophils % (Manual) Basophils % 0.6 Basophils % (Manual) Myelocytes % (Man) Promyelocytes % (Man) Blast Cells % (Manual) Nucleated RBC % 0 Metamyelocytes Hypochromia Toxic Granulation Dohle Bodies Platelet Estimate Polychromasia Poikilocytosis Basophilic Stippling Anisocytosis Microcytosis Macrocytosis Spherocytes Sickle Cells Target Cells Tear Drop Cells Ovalocytes Stomatocytes Helmet Cells Davis-Angie Bodies [place] Rings Christine Cells Acanthocytes (Spur) Rouleaux Fragmented RBCs Schistocytes Sodium 133 L Potassium 3.6 Chloride 92 L Carbon Dioxide 30 Anion Gap 10 BUN 10 Creatinine 0.8 Creat Clearance w eGFR > 60 POC Glucometer Random Glucose 115 H Calcium 8.7 Phosphorus Magnesium Total Bilirubin 1.1 H AST 23 ALT 24 Alkaline Phosphatase 157 H Creatine Kinase 57 63 Troponin I 0.02 0.02 B-Natriuretic Peptide 780.4 H Total Protein 7.5 Albumin 3.2 L 09/24/18 09/24/18 09/24/18 05:45 05:45 05:45 WBC 9.4 RBC 5.20 Hgb 15.0 Hct 45.5 MCV 87.5 MCH 28.8 MCHC 32.9 RDW 17.1 H Plt Count 128 L MPV 9.7 Absolute Neuts (auto) 8.8 H Neutrophils % 93.1 H Neutrophils % (Manual) 98.0 H Band Neutrophils % 0.0 Lymphocytes % 3.8 L D Lymphocytes % (Manual) 1.0 L D Monocytes % 0.8 L D Monocytes % (Manual) 0 L D Eosinophils % 0.2 D Eosinophils % (Manual) 0.0 Basophils % 2.1 H D Basophils % (Manual) 1.0 D Myelocytes % (Man) 0 Promyelocytes % (Man) 0 Blast Cells % (Manual) 0 Nucleated RBC % 0 Metamyelocytes 0 Hypochromia 0 Toxic Granulation 0 Dohle Bodies 0 Platelet Estimate Decreased Polychromasia 0 Poikilocytosis 0 Basophilic Stippling 0 Anisocytosis 0 Microcytosis 0 Macrocytosis 0 Spherocytes 0 Sickle Cells 0 Target Cells 0 Tear Drop Cells 0 Ovalocytes 0 Stomatocytes 0 Helmet Cells 0 Davis-Angie Bodies 0 [place] Rings 0 [place] Cells 0 Acanthocytes (Spur) 0 Rouleaux 0 Fragmented RBCs 0 Schistocytes 0 Sodium 129 L Potassium 4.4 Chloride 91 L Carbon Dioxide 28 Anion Gap 10 BUN 14 Creatinine 0.9 Creat Clearance w eGFR > 60 POC Glucometer Random Glucose 325 H* Calcium 8.5 Phosphorus 4.7 Magnesium 1.4 L Total Bilirubin AST ALT Alkaline Phosphatase Creatine Kinase Troponin I 0.02 B-Natriuretic Peptide Total Protein Albumin 09/24/18 09/24/18 09/24/18 10:00 11:15 11:18 WBC RBC Hgb Hct MCV MCH MCHC RDW Plt Count MPV Absolute Neuts (auto) Neutrophils % Neutrophils % (Manual) Band Neutrophils % Lymphocytes % Lymphocytes % (Manual) Monocytes % Monocytes % (Manual) Eosinophils % Eosinophils % (Manual) Basophils % Basophils % (Manual) Myelocytes % (Man) Promyelocytes % (Man) Blast Cells % (Manual) Nucleated RBC % Metamyelocytes Hypochromia Toxic Granulation Dohle Bodies Platelet Estimate Polychromasia Poikilocytosis Basophilic Stippling Anisocytosis Microcytosis Macrocytosis Spherocytes Sickle Cells Target Cells Tear Drop Cells Ovalocytes Stomatocytes Helmet Cells [place]-Angie Bodies [place] Rings [place] Cells Acanthocytes (Spur) Rouleaux Fragmented RBCs Schistocytes Sodium Potassium Chloride Carbon Dioxide Anion Gap BUN Creatinine Creat Clearance w eGFR POC Glucometer > 400 > 400 Random Glucose Calcium Phosphorus Magnesium Total Bilirubin AST ALT Alkaline Phosphatase Creatine Kinase Troponin I < 0.02 B-Natriuretic Peptide Total Protein Albumin 09/24/18 12:00 WBC RBC Hgb Hct MCV MCH MCHC RDW Plt Count MPV Absolute Neuts (auto) Neutrophils % Neutrophils % (Manual) Band Neutrophils % Lymphocytes % Lymphocytes % (Manual) Monocytes % Monocytes % (Manual) Eosinophils % Eosinophils % (Manual) Basophils % Basophils % (Manual) Myelocytes % (Man) Promyelocytes % (Man) Blast Cells % (Manual) Nucleated RBC % Metamyelocytes Hypochromia Toxic Granulation Dohle Bodies Platelet Estimate Polychromasia Poikilocytosis Basophilic Stippling Anisocytosis Microcytosis Macrocytosis Spherocytes Sickle Cells Target Cells Tear Drop Cells Ovalocytes Stomatocytes Helmet Cells [place]-Angie Bodies [place] Rings [place] Cells Acanthocytes (Spur) Rouleaux Fragmented RBCs Schistocytes Sodium 125 L Potassium 5.8 H Chloride 91 L Carbon Dioxide 22 Anion Gap 13 BUN 20 H Creatinine 1.1 Creat Clearance w eGFR > 60 POC Glucometer Random Glucose 424 H* Calcium 8.4 L Phosphorus Magnesium Total Bilirubin AST ALT Alkaline Phosphatase Creatine Kinase Troponin I B-Natriuretic Peptide Total Protein Albumin Active Medications Generic Name Dose Route Start Last Admin Trade Name Freq PRN Reason Stop Dose Admin Acetaminophen 650 mg 09/24/18 09:08 Tylenol - PO Q6H PRN PAIN OR FEVER Albuterol/Ipratropium 1 amp 09/24/18 09:08 Duoneb - NEB Q6H PRN SHORTNESS OF BREATH Atorvastatin Calcium 40 mg 09/24/18 22:00 Lipitor - PO HS GIDEON Dabigatran 150 mg 09/24/18 10:00 09/24/18 11:05 Pradaxa - PO 150 mg BID GIDEON Administration Digoxin 0.25 mg 09/24/18 10:00 09/24/18 10:16 Lanoxin - PO 0.25 mg DAILY GIDEON Administration Insulin Aspart 1 vial 09/24/18 11:00 09/24/18 11:20 Novolog Vial Sliding Scale - SQ 10 unit ACHS GIDEON Administration Protocol Isosorbide Mononitrate 60 mg 09/24/18 10:00 09/24/18 10:15 Imdur - PO 60 mg DAILY GIDEON Administration Lisinopril 2.5 mg 09/24/18 10:00 09/24/18 10:16 Prinivil PO 2.5 mg DAILY GIDEON Administration Metoprolol Succinate 50 mg 09/24/18 10:00 09/24/18 10:17 Toprol Xl - PO 50 mg DAILY GIDEON Administration Montelukast Sodium 10 mg 09/24/18 22:00 Singulair - PO HS GIDEON ASSESSMENT/PLAN: The patient is a 63 year old male with a PMH of cardiac non-ischemic cardiomyopathy, s/p cardiac cath in 2015, HF with EF 30-35%, HTN, A.Fib. on Pradaxa, COPD, DMII, dyslipidemia, obesity, admitted to the hospital for evaluation of chest pain. Atypical chest pain non-obstructive cardiomyopathy HF with reduced EF A.Fib HTN COPD dyslipidemia DMII obesity hypomagnesemia Recommendations: Atypical chest pain: -likely due to COPD exacerbation/URI (associated with wheezing, respiration, cough) less likely cardiac, no CHF exacerbation or ACS -negative troponins, no new changes in EKG -last ECHO 09/02/18: LV severely reduced with severe global hypokinesis, EF 30% , moderate MR, mild TR, RV pressure elevated at 33% -also non obstructive CAD, s/p cardiac cath, stable, no history of stents in the chart -please continue current medications: Toprol 50 mg qd, Lisinopril 2.5 mg qd, Digoxin 0.25, Pradaxa 150 md qd, Imdur 60 mg qd, Furosemide 40 mg BID -the patient was given healthy lifestyle counseling: (low sodium diet, low in saturated fats and carbohydrates, exercise) as well as importance of medication compliance HFrEF Continue lasix monitor electrolytes cont Lisinopril 2.5mg qd. Afib HR controlled on Metoprolol and Digoxin continue Pradaxa HTN: continue current medications low sodium diet HLD: cont Lipitor DMII: cont ISS BGMs diabetic diet Dr. Lloyd PGY [address] Joe Thank you for this consultative opportunity. Problem List - Problems (1) Chest tightness Code(s): R07.89 - OTHER CHEST PAIN (2) Atrial fibrillation Code(s): I48.91 - UNSPECIFIED ATRIAL FIBRILLATION Qualifiers: Atrial fibrillation type: persistent Qualified Code(s): I48.1 - Persistent atrial fibrillation (3) CAD (coronary artery disease) Code(s): I25.10 - ATHSCL HEART DISEASE OF [place] CORONARY ARTERY W/O ANG PCTRS Qualifiers: Coronary Disease-Associated Artery/Lesion type: [place] artery [place] vs. transplanted heart: [place] heart Associated angina: without angina Qualified Code(s): I25.10 - Atherosclerotic heart disease of [place] coronary artery without angina pectoris (4) CHF (congestive heart failure) Code(s): I50.9 - HEART FAILURE, UNSPECIFIED Qualifiers: Heart failure type: unspecified Heart failure chronicity: acute on chronic Qualified Code(s): I50.9 - Heart failure, unspecified (5) CHF exacerbation Code(s): I50.9 - HEART FAILURE, UNSPECIFIED Qualifiers: Heart failure type: unspecified Qualified Code(s): I50.9 - Heart failure, unspecified (6) COPD (chronic obstructive pulmonary disease) Code(s): J44.9 - CHRONIC OBSTRUCTIVE PULMONARY DISEASE, UNSPECIFIED (7) Electrolyte abnormality Code(s): E87.8 - OTH DISORDERS OF ELECTROLYTE AND FLUID BALANCE, NEC (8) Hypercholesterolemia Code(s): E78.0 - PURE HYPERCHOLESTEROLEMIA * DO NOT USE * (9) Hyperglycemia, drug-induced Code(s): R73.9 - HYPERGLYCEMIA, UNSPECIFIED; T50.905A - ADVERSE EFFECT OF UNSP DRUG/MEDS/BIOL SUBST, INIT (10) Hypertension Code(s): I10 - ESSENTIAL (PRIMARY) HYPERTENSION Qualifiers: Hypertension type: essential hypertension Qualified Code(s): I10 - Essential (primary) hypertension (11) Hypomagnesemia Code(s): E83.42 - HYPOMAGNESEMIA (12) Hyponatremia Code(s): E87.1 - HYPO-OSMOLALITY AND HYPONATREMIA (13) Shortness of breath Code(s): R06.02 - SHORTNESS OF BREATH (14) Stasis dermatitis of both legs Code(s): I87.2 - VENOUS INSUFFICIENCY (CHRONIC) (PERIPHERAL) Visit type - Emergency Visit Emergency Visit: Yes ED Registration Date: 09/23/18 Care time: The patient presented to the Emergency Department on the above date and was hospitalized for further evaluation of their emergent condition. - New Patient This patient is new to me today: Yes Date on this admission: 09/24/18 - Critical Care Critical Care patient: No
--- NOTE | 2018-09-24 15:34 | PN ---
Progress Note (short form) - Note Progress Note: PULMONARY CONSULTATION DICTATED 09/24/18 IMP COPD EXACERBATION ASHD S/P STENTS CHF AFIB LIKELY OSAS PULMONARY HTN PLAN IV STEROIDS INHALED BRONCHODILATORS O2 CARDIOLOGY EVALUATION AC DR TEJEDA Problem List - Problems (1) Chest tightness Code(s): R07.89 - OTHER CHEST PAIN (2) Atrial fibrillation Code(s): I48.91 - UNSPECIFIED ATRIAL FIBRILLATION Qualifiers: Atrial fibrillation type: persistent Qualified Code(s): I48.1 - Persistent atrial fibrillation (3) CAD (coronary artery disease) Code(s): I25.10 - ATHSCL HEART DISEASE OF [place] CORONARY ARTERY W/O ANG PCTRS Qualifiers: Coronary Disease-Associated Artery/Lesion type: [place] artery [place] vs. transplanted heart: [place] heart Associated angina: without angina Qualified Code(s): I25.10 - Atherosclerotic heart disease of [place] coronary artery without angina pectoris (4) CHF (congestive heart failure) Code(s): I50.9 - HEART FAILURE, UNSPECIFIED Qualifiers: Heart failure type: unspecified Heart failure chronicity: acute on chronic Qualified Code(s): I50.9 - Heart failure, unspecified (5) COPD with acute exacerbation Code(s): J44.1 - CHRONIC OBSTRUCTIVE PULMONARY DISEASE W (ACUTE) EXACERBATION (6) Hypertension Code(s): I10 - ESSENTIAL (PRIMARY) HYPERTENSION Qualifiers: Hypertension type: essential hypertension Qualified Code(s): I10 - Essential (primary) hypertension (7) Pulmonary HTN Code(s): I27.20 - PULMONARY HYPERTENSION, UNSPECIFIED (8) Shortness of breath Code(s): R06.02 - SHORTNESS OF BREATH
[2018-09-24] MEDS: ALBUTEROL SO4 2.5/IPRATROPIUM 0.5 INH SOL 3 ML VIAL.NEB. NEB PRN ×2 (19:30→23:33)
--- NOTE | 2018-09-24 20:40 | CONS ---
DATE OF CONSULTATION: DATE OF DICTATION: 09/24/2018 PULMONARY CONSULTATION REFERRING PHYSICIAN: Jessica Wooten M.D. HISTORY OF PRESENT ILLNESS: The patient is a 63-year-old male known to me from previous hospitalization. Past medical history of COPD, atrial fibrillation, ASHD status post stent x1, hypertension, hyperlipidemia, noninsulin dependent diabetes mellitus, congestive heart failure, with recent hospitalization noted on echo to have an ejection fraction of 30%, likely obstructive sleep apnea, had a sleep screening performed at [facility], previous hospitalization noted an elevated AHI, was admitted to [facility] after developing chest tightness and shortness of breath during the sleep study. Patient states that approximately 3 days prior to admission started developing increasing shortness of breath, cough, and wheezing. His inhaler did not offer significant improvement. He states that he had chest tightness, not chest pain. Denied any nausea, vomiting. Denied any fevers, chills, and cough with productive white sputum. Denies any hemoptysis. He was scheduled for his sleep study and when study started developed sob,,chest tightness at which time he was sent to the emergency room. In the ER he was felt to have acute exacerbation of COPD, started on IV steroids, inhaled bronchodilators with good clinical response. The patient has a history of tobacco use, approximately 2 packs per day since age 10, quit 2 years ago. 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 There is no history of DVT or pulmonary emboli in the past. PAST MEDICAL HISTORY: Again includes ASHD status post stent, COPD, congestive heart failure, hyperlipidemia, noninsulin dependent diabetes mellitus, hypertension, obstructive sleep apnea. Atrial fibrillation. REVIEW OF SYSTEMS: Positive dyspnea. Positive PND. No orthopnea. No chest pain. Positive chest tightness. No fevers. No chills. Positive cough. No abdominal pain. No lower extremity edema. CURRENT MEDICATIONS: Prinivil, Tylenol, Pradaxa, DuoNeb, Toprol, Lanoxin, Lipitor, NovoLog,Levemir, and Imdur. PHYSICAL EXAMINATION: GENERAL: The patient is a well developed, nourished male awake, alert, currently in no acute distress. He is afebrile. VITAL SIGNS: Blood pressure 115/74, respiratory rate 19. HEENT: Normocephalic, atraumatic. NECK: Supple. HEART: Irregularly irregular S1, S2. CHEST: Bilateral wheezes throughout. ABDOMEN: Soft, bowel sounds positive. EXTREMITIES: No cyanosis, edema. LABORATORY: WBC 9.4, hemoglobin 15, hematocrit 45.5, platelet count 128,000. Potassium is 5.8, BUN 20, creatinine 1.1. Chest x-ray no acute infiltrates or effusions. IMPRESSION: 1. Dyspnea, chest tightness likely secondary to chronic obstructive pulmonary disease with acute exacerbation. 2. Arteriosclerotic heart disease status post stents. 3. Congestive heart failure. 4. Atrial fibrillation. 5. Likely obstructive sleep apnea. 6. Pulmonary hypertension. PLAN: IV steroids, inhaled bronchodilator, supplemental O2, cardiology evaluation, continue anticoagulation, PFTs as outpatient, and sleep study as outpatient. RADHA TEJEDA M.D. [id number] MTDD
[2018-09-24 21:21] LABS: ANION GAP 13 MMOL/L (8-16); BLOOD UREA NITROGEN 27 mg/dL (7-18); CALCIUM 8.4 mg/dL (8.5-10.1); CHLORIDE 92 mmol/L (98-107); CO2 26 mmol/L (21-32); CREATININE 1.1 mg/dL (0.55-1.3); POTASSIUM 4.6 mmol/L (3.5-5.1); SODIUM 130 mmol/L (136-145)
[2018-09-24] MEDS ORDERED: diphenhydrAMINE HCL 25 MG CAPSULE (FP) PO ONE (21:25)
[2018-09-24 21:33] LABS: GLUCOSE,RANDOM 379 mg/dL (74-106)
[2018-09-24] MEDS ORDERED: MAGNESIUM SULF 50% (8.12 MEQ/2 ML-1 GM VIAL) IVPB ONE ×2 (22:03→22:07)
[2018-09-24] MEDS: MONTELUKAST NA 10 MG TABLET PO SCH (22:20)
[2018-09-24] MEDS: ACETAMINOPHEN 325 MG TABLET (FP) PO PRN (22:20)
[2018-09-24] MEDS: INSULIN (LEVEMIR) 100 UNITS/ML UNITS SQ SCH (22:21)
[2018-09-24] MEDS: ATORVASTATIN CA 40 MG TABLET (FP) PO SCH (22:22)
[2018-09-24] MEDS ORDERED: WATER IVPB ONE (22:30)
[2018-09-24] MEDS ORDERED: MAGNESIUM SULFATE IVPB ONE (22:30)
[2018-09-24] MEDS ORDERED: DEXTROSE 5% IVPB ONE (22:30)
[2018-09-24 22:44] LABS: MAGNESIUM 1.5 mg/dL (1.8-2.4)
[2018-09-24 23:29] LABS: ALBUMIN 2.9 g/dl (3.4-5.0); ALK PHOS 142 U/L (45-117); BILIRUBIN,DIRECT 0.4 mg/dL (0.0-0.2); BILIRUBIN,TOTAL 0.9 mg/dL (0.2-1); SGOT/AST 15 U/L (15-37); SGPT/ALT 23 U/L (13-61); TOT PROT 6.8 g/dl (6.4-8.2)
[2018-09-25] MEDS: ACETAMINOPHEN 325 MG TABLET (FP) PO PRN ×2 (05:30→17:49)
[2018-09-25] MEDS: ALBUTEROL SO4 2.5/IPRATROPIUM 0.5 INH SOL 3 ML VIAL.NEB. NEB PRN (06:18)
[2018-09-25] MEDS: INSULIN (LEVEMIR) 100 UNITS/ML UNITS SQ SCH ×2 (06:20→23:37)
[2018-09-25] MEDS: INSULIN SLIDING SCALE (NOVOLOG) 1 VIAL SQ SCH ×4 (06:21→23:38)
[2018-09-25 07:54] LABS: ALBUMIN 2.8 g/dl (3.4-5.0); ALK PHOS 206 U/L (45-117); ANION GAP 9 MMOL/L (8-16); BILIRUBIN,TOTAL 0.6 mg/dL (0.2-1); BLOOD UREA NITROGEN 27 mg/dL (7-18); CALCIUM 8.5 mg/dL (8.5-10.1); CHLORIDE 91 mmol/L (98-107); CO2 28 mmol/L (21-32); POTASSIUM 4.4 mmol/L (3.5-5.1); SGOT/AST 12 U/L (15-37); SGPT/ALT 19 U/L (13-61); SODIUM 128 mmol/L (136-145); TOT PROT 6.8 g/dl (6.4-8.2)
[2018-09-25 08:47] LABS: GLUCOSE,RANDOM 481 mg/dL (74-106)
--- NOTE | 2018-09-25 09:04 | PN ---
Progress Note, Physician - Current Medication List Current Medications: Active Medications Acetaminophen (Tylenol -) 650 mg PO Q6H PRN PRN Reason: PAIN OR FEVER Last Admin: 09/25/18 05:30 Dose: 650 mg Albuterol/Ipratropium (Duoneb -) 1 amp NEB Q6H PRN PRN Reason: SHORTNESS OF BREATH Last Admin: 09/25/18 06:18 Dose: 1 amp Atorvastatin Calcium (Lipitor -) 40 mg PO [facility] Last Admin: 09/24/18 22:22 Dose: 40 mg Dabigatran (Pradaxa -) 150 mg PO BID [facility] Last Admin: 09/24/18 22:20 Dose: 150 mg Digoxin (Lanoxin -) 0.25 mg PO DAILY [facility] Last Admin: 09/24/18 10:16 Dose: 0.25 mg Guaifenesin (Diabetic Tussin Dm -) 5 ml PO Q4H PRN PRN Reason: COUGH Insulin Aspart (Novolog Vial Sliding Scale -) 1 vial SQ [facility]; Protocol Last Admin: 09/25/18 06:21 Dose: 10 unit Insulin Detemir (Levemir Vial) 15 units SQ BID@0700,2200 [facility] Last Admin: 09/25/18 06:20 Dose: 15 units Isosorbide Mononitrate (Imdur -) 60 mg PO DAILY [facility] Last Admin: 09/24/18 10:15 Dose: 60 mg Lisinopril (Prinivil) 2.5 mg PO DAILY [facility] Last Admin: 09/24/18 10:16 Dose: 2.5 mg Metoprolol Succinate (Toprol Xl -) 50 mg PO DAILY [facility] Last Admin: 09/24/18 10:17 Dose: 50 mg Montelukast Sodium (Singulair -) 10 mg PO [facility] Last Admin: 09/24/18 22:20 Dose: 10 mg - Objective Vital Signs: Vital Signs Temperature 97.5 F L 09/25/18 06:10 Pulse Rate 78 09/25/18 06:10 Respiratory Rate 20 09/25/18 06:10 Blood Pressure 134/76 09/25/18 06:10 O2 Sat by Pulse Oximetry (%) 97 09/24/18 21:00 Cardiovascular: Yes: S1, S2 Respiratory: Yes: Diminished, On Nasal O2, Rhonchi, Wheezes Gastrointestinal: Yes: Normal Bowel Sounds, Soft Labs: CBC, BMP 09/24/18 05:45 09/25/18 06:00 Problem List - Problems (1) COPD with acute exacerbation Assessment/Plan: Continue Cardiac monitoring HEART Score 4 EKG- Afib with RVR Solumederol Chest Xray report- no infiltrate, no effusion Appreciate Pulmonology consult Duonebs Peak flows O2 prn Code(s): J44.1 - CHRONIC OBSTRUCTIVE PULMONARY DISEASE W (ACUTE) EXACERBATION (2) Atrial fibrillation Assessment/Plan: EKG- reviewed [id number] Continue Pradaxa Code(s): I48.91 - UNSPECIFIED ATRIAL FIBRILLATION Qualifiers: Atrial fibrillation type: persistent Qualified Code(s): I48.1 - Persistent atrial fibrillation (3) CAD (coronary artery disease) Assessment/Plan: Continue home meds EKG- reviewed Chest xray reviewed given Asa 162 now for ACS Serial Enzymes Appreciate Cardiology consult Code(s): I25.10 - ATHSCL HEART DISEASE OF [place] CORONARY ARTERY W/O ANG PCTRS Qualifiers: Coronary Disease-Associated Artery/Lesion type: [place] artery [place] vs. transplanted heart: [place] heart Associated angina: without angina Qualified Code(s): I25.10 - Atherosclerotic heart disease of [place] coronary artery without angina pectoris (4) CHF (congestive heart failure) Assessment/Plan: BNP 780 Chest xray image- ns CHF, no effusion, no infiltrate Continue home medications O2 prn Monitor CBC, BMP Daily weights INOs Code(s): I50.9 - HEART FAILURE, UNSPECIFIED Qualifiers: Heart failure type: unspecified Heart failure chronicity: acute on chronic Qualified Code(s): I50.9 - Heart failure, unspecified
[2018-09-25] MEDS ORDERED: PT OWN MED DRAWER 7, Y5N ONE ×2 (09:26→23:30)
[2018-09-25] MEDS: LISINOPRIL 5 MG TABLET (FP) PO SCH (09:32)
[2018-09-25] MEDS: DIGOXIN 0.25 MG TABLET (FP) PO SCH (09:33)
[2018-09-25] MEDS: ISOSORBIDE MONONITRATE 60 MG TAB.SR.24H (FP) PO SCH (09:33)
[2018-09-25] MEDS: DABIGATRAN ETEXILATE MESYLATE 150 MG CAPSULE PO SCH ×2 (09:34→23:37)
--- NOTE | 2018-09-25 10:36 | CONSULT ---
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 Pt reports feeling general malaise and having chest pain intermittently. PMHx: Afib (Pradaxa) sCHF (EF 30%) HTN CAD s/p PCI COPD IDDM PSHX: Cardiac stent (unknown material) SoHx: Tobacco: Former Smoker; quit 1 year ago Alcohol: Previous usage, no longer drinks Drugs: None Independent with ADL in boarding house; ambulates with cane Allergies: Contrast REVIEW OF SYSTEMS: CONSTITUTIONAL: Present: Malaise, weight change Absent: fever, chills, diaphoresis, generalized weakness, loss of appetite, HEENT: Absent: rhinorrhea, nasal congestion, throat pain, throat swelling, difficulty swallowing, mouth swelling, ear pain, eye pain, visual changes CARDIOVASCULAR: Present: Chest pain, peripheral edema Absent: syncope, palpitations, irregular heart rate, lightheadedness RESPIRATORY: Present: Shortness of breath Absent: cough, wheezing, stridor, hemoptysis GASTROINTESTINAL: Absent: abdominal pain, abdominal distension, nausea, vomiting, diarrhea, constipation, melena, hematochezia GENITOURINARY: Absent: dysuria, frequency, urgency, hesitancy, hematuria, flank pain MUSCULOSKELETAL: Absent: myalgia, arthralgia, joint swelling, back pain, neck pain SKIN: Absent: rash, itching, pallor NEUROLOGIC: Absent: headache, focal weakness or paresthesias, dizziness, unsteady gait, seizure, mental status changes, bladder or bowel incontinence PSYCHIATRIC: Absent: anxiety, depression PHYSICAL EXAMINATION Vital Signs - 24 hr 09/24/18 09/24/18 09/24/18 11:32 11:43 15:43 Temperature 98.0 F 97.8 F 97.9 F Pulse Rate 66 Pulse Rate [ 77 77 Apical] Respiratory 18 16 17 Rate Blood Pressure 121/50 L Blood Pressure 148/85 148/85 [Right Arm] O2 Sat by Pulse 99 96 Oximetry (%) 09/24/18 09/24/18 09/24/18 16:28 18:00 20:44 Temperature 97.4 F L 97.8 F 97.3 F L Pulse Rate 80 77 70 Pulse Rate [ Apical] Respiratory 20 19 18 Rate Blood Pressure 149/62 115/74 114/62 Blood Pressure [Right Arm] O2 Sat by Pulse 95 Oximetry (%) 09/24/18 09/24/18 09/25/18 20:46 21:00 02:00 Temperature 98.2 F 97.4 F L Pulse Rate 70 86 91 H Pulse Rate [ Apical] Respiratory 18 18 Rate Blood Pressure 133/59 L 133/70 Blood Pressure [Right Arm] O2 Sat by Pulse 96 97 Oximetry (%) 09/25/18 09/25/18 06:10 09:33 Temperature 97.5 F L Pulse Rate 78 88 Pulse Rate [ Apical] Respiratory 20 Rate Blood Pressure 134/76 Blood Pressure [Right Arm] O2 Sat by Pulse Oximetry (%) GENERAL: NAD, awake, alert, and fully oriented, laying in bed HEENT: NC/AT, SHANKAR, MMM, On NC NECK: LUNGS: Rales bilaterally. No wheezes, and no crackles. No accessory muscle use. HEART: RRR, normal S1 and S2 without murmur ABDOMEN: Soft, NT/ND, normoactive BS, no guarding. EXTREMITIES: 2+ DP pulses, warm, tense edema noted in lower extremities. PSYCHIATRIC: Cooperative. Good eye contact. Appropriate mood and affect. SKIN: Warm, see EXT, chronic venous changes on lower extremities Laboratory Results - last 24 hr 09/24/18 09/24/18 09/24/18 05:45 10:00 11:15 Neutrophils % (Manual) 98.0 H Band Neutrophils % 0.0 Lymphocytes % (Manual) 1.0 L D Monocytes % (Manual) 0 L D Eosinophils % (Manual) 0.0 Basophils % (Manual) 1.0 D Myelocytes % (Man) 0 Promyelocytes % (Man) 0 Blast Cells % (Manual) 0 Metamyelocytes 0 Hypochromia 0 Toxic Granulation 0 Dohle Bodies 0 Platelet Estimate Decreased Polychromasia 0 Poikilocytosis 0 Basophilic Stippling 0 Anisocytosis 0 Microcytosis 0 Macrocytosis 0 Spherocytes 0 Sickle Cells 0 Target Cells 0 Tear Drop Cells 0 Ovalocytes 0 Stomatocytes 0 Helmet Cells 0 [place] Bodies 0 [place] Rings 0 Christine Cells 0 Acanthocytes (Spur) 0 Rouleaux 0 Fragmented RBCs 0 Schistocytes 0 Sodium Potassium Chloride Carbon Dioxide Anion Gap BUN Creatinine Creat Clearance w eGFR POC Glucometer > 400 Random Glucose Calcium Magnesium Total Bilirubin Direct Bilirubin AST ALT Alkaline Phosphatase Troponin I < 0.02 Total Protein Albumin 09/24/18 09/24/18 09/24/18 1118 12:00 16:24 Neutrophils % (Manual) Band Neutrophils % Lymphocytes % (Manual) Monocytes % (Manual) Eosinophils % (Manual) Basophils % (Manual) Myelocytes % (Man) Promyelocytes % (Man) Blast Cells % (Manual) Metamyelocytes Hypochromia Toxic Granulation Dohle Bodies Platelet Estimate Polychromasia Poikilocytosis Basophilic Stippling Anisocytosis Microcytosis Macrocytosis Spherocytes Sickle Cells Target Cells Tear Drop Cells Ovalocytes Stomatocytes Helmet Cells [place] Bodies [place] Rings Christine Cells Acanthocytes (Spur) Rouleaux Fragmented RBCs Schistocytes Sodium 125 L Potassium 5.8 H Chloride 91 L Carbon Dioxide 22 Anion Gap 13 BUN 20 H Creatinine 1.1 Creat Clearance w eGFR > 60 POC Glucometer > 400 410 Random Glucose 424 H* Calcium 8.4 L Magnesium Total Bilirubin Direct Bilirubin AST ALT Alkaline Phosphatase Troponin I Total Protein Albumin 09/24/18 09/24/18 09/25/18 20:00 21:09 05:32 Neutrophils % (Manual) Band Neutrophils % Lymphocytes % (Manual) Monocytes % (Manual) Eosinophils % (Manual) Basophils % (Manual) Myelocytes % (Man) Promyelocytes % (Man) Blast Cells % (Manual) Metamyelocytes Hypochromia Toxic Granulation Dohle Bodies Platelet Estimate Polychromasia Poikilocytosis Basophilic Stippling Anisocytosis Microcytosis Macrocytosis Spherocytes Sickle Cells Target Cells Tear Drop Cells Ovalocytes Stomatocytes Helmet Cells [place] Bodies [place] Rings Christine Cells Acanthocytes (Spur) Rouleaux Fragmented RBCs Schistocytes Sodium 130 L Potassium 4.6 Chloride 92 L Carbon Dioxide 26 Anion Gap 13 BUN 27 H Creatinine 1.1 Creat Clearance w eGFR > 60 POC Glucometer 374 487 Random Glucose 379 H* Calcium 8.4 L Magnesium 1.5 L Total Bilirubin 0.9 Direct Bilirubin 0.4 H AST 15 ALT 23 Alkaline Phosphatase 142 H Troponin I < 0.02 Total Protein 6.8 Albumin 2.9 L 09/25/18 06:00 Neutrophils % (Manual) Band Neutrophils % Lymphocytes % (Manual) Monocytes % (Manual) Eosinophils % (Manual) Basophils % (Manual) Myelocytes % (Man) Promyelocytes % (Man) Blast Cells % (Manual) Metamyelocytes Hypochromia Toxic Granulation Dohle Bodies Platelet Estimate Polychromasia Poikilocytosis Basophilic Stippling Anisocytosis Microcytosis Macrocytosis Spherocytes Sickle Cells Target Cells Tear Drop Cells Ovalocytes Stomatocytes Helmet Cells [place] Bodies [place] Rings Christine Cells Acanthocytes (Spur) Rouleaux Fragmented RBCs Schistocytes Sodium 128 L Potassium 4.4 Chloride 91 L Carbon Dioxide 28 Anion Gap 9 BUN 27 H Creatinine 1.0 Creat Clearance w eGFR > 60 POC Glucometer Random Glucose 481 H* Calcium 8.5 Magnesium 3.0 H Total Bilirubin 0.6 Direct Bilirubin AST 12 L ALT 19 Alkaline Phosphatase 206 H Troponin I Total Protein 6.8 Albumin 2.8 L Active Medications Generic Name Dose Route Start Last Admin Trade Name Freq PRN Reason Stop Dose Admin Acetaminophen 650 mg 09/24/18 09:08 09/25/18 05:30 Tylenol - PO 650 mg Q6H PRN Administration PAIN OR FEVER Albuterol/Ipratropium 1 amp 09/25/18 12:00 Duoneb - NEB QIDR GIDEON Atorvastatin Calcium 40 mg 09/24/18 22:00 09/24/18 22:22 Lipitor - PO 40 mg HS GIDEON Administration Dabigatran 150 mg 09/24/18 10:00 09/25/18 09:34 Pradaxa - PO 150 mg BID GIDEON Administration Digoxin 0.25 mg 09/24/18 10:00 09/25/18 09:33 Lanoxin - PO 0.25 mg DAILY GIDEON Administration Guaifenesin 5 ml 09/25/18 05:38 Diabetic Tussin Dm - PO Q4H PRN COUGH Insulin Aspart 1 vial 09/24/18 11:00 09/25/18 06:21 Novolog Vial Sliding Scale - SQ 10 unit ACHS GIDEON Administration Protocol Insulin Detemir 15 units 09/24/18 22:00 09/25/18 06:20 Levemir Vial SQ 15 units BID@0700,2200 G[facility] Administration Isosorbide Mononitrate 60 mg 09/24/18 10:00 09/25/18 09:33 Imdur - PO 60 mg DAILY GIDEON Administration Lisinopril 2.5 mg 09/24/18 10:00 09/25/18 09:32 Prinivil PO 2.5 mg DAILY GIDEON Administration Metoprolol Succinate 50 mg 09/24/18 10:00 09/25/18 09:33 Toprol Xl - PO 50 mg DAILY GIDEON Administration Montelukast Sodium 10 mg 09/24/18 22:00 09/24/18 22:20 Singulair - PO 10 mg HS GIDEON Administration ASSESSMENT/PLAN: Hyponatremia Hyperglycemia IDDM Chest pain r/o ACS Atrial fibrillation HFrEF Sent for urine osm and serum osm Corrected sodium (131) trending towards normalization Likely hyponatremia 2/2 to hyperglycemia --Control glucose --Monitor Na with morning labs CXR noted Monitor daily weights Rest per cardioloy and primary teams Dispo: Need better glycemic control. Thank you for this consultative opportunity. Case discussed with Dr.Samarneh Carroll Corets, DO - IM PGY-2 Visit type - Emergency Visit Emergency Visit: Yes ED Registration Date: 09/23/18 Care time: The patient presented to the Emergency Department on the above date and was hospitalized for further evaluation of their emergent condition. - New Patient This patient is new to me today: Yes Date on this admission: 09/25/18 - Critical Care Critical Care patient: No
[2018-09-25] MEDS: ALBUTEROL SO4 2.5/IPRATROPIUM 0.5 INH SOL 3 ML VIAL.NEB. NEB SCH ×2 (12:44→18:00)
[2018-09-25 12:58] LABS: OSMOLALITY,SERUM 306 mosm/kg (278-305)
[2018-09-25] MEDS: guaiFENesin/D-M SUGAR-FREE/ACLHOL-FREE 118 ML BOTTLE PO PRN ×2 (13:02→23:42)
--- NOTE | 2018-09-25 14:07 | PN ---
Progress Note (short form) - Note Progress Note: Feels a little better today. Intermittent VT. Intake & Output 09/22/18 09/23/18 09/24/18 09/25/18 23:59 23:59 23:59 23:59 Output Total 850 Balance -850 Weight 220 lb 221 lb 223 lb 3.2 oz Last Vital Signs Temp Pulse Resp BP Pulse Ox 97.4 F L 88 20 143/77 97 09/25/18 09:00 09/25/18 09:33 09/25/18 09:00 09/25/18 09:00 09/25/18 09:00 Active Medications Acetaminophen (Tylenol -) 650 mg PO Q6H PRN PRN Reason: PAIN OR FEVER Last Admin: 09/25/18 05:30 Dose: 650 mg Albuterol/Ipratropium (Duoneb -) 1 amp NEB QIDR [facility] Last Admin: 09/25/18 12:44 Dose: 1 amp Atorvastatin Calcium (Lipitor -) 40 mg PO HS [facility] Last Admin: 09/24/18 22:22 Dose: 40 mg Dabigatran (Pradaxa -) 150 mg PO BID [facility] Last Admin: 09/25/18 09:34 Dose: 150 mg Digoxin (Lanoxin -) 0.25 mg PO DAILY [facility] Last Admin: 09/25/18 09:33 Dose: 0.25 mg Guaifenesin (Diabetic Tussin Dm -) 5 ml PO Q4H PRN PRN Reason: COUGH Last Admin: 09/25/18 13:02 Dose: 5 ml Insulin Aspart (Novolog Vial Sliding Scale -) 1 vial SQ [facility]; Protocol Last Admin: 09/25/18 13:03 Dose: 6 unit Insulin Detemir (Levemir Vial) 15 units SQ BID@0700,2200 [facility] Last Admin: 09/25/18 06:20 Dose: 15 units Isosorbide Mononitrate (Imdur -) 60 mg PO DAILY [facility] Last Admin: 09/25/18 09:33 Dose: 60 mg Lisinopril (Prinivil) 2.5 mg PO DAILY [facility] Last Admin: 09/25/18 09:32 Dose: 2.5 mg Metoprolol Succinate (Toprol Xl -) 50 mg PO DAILY [facility] Last Admin: 09/25/18 09:33 Dose: 50 mg Montelukast Sodium (Singulair -) 10 mg PO HS [facility] Last Admin: 09/24/18 22:20 Dose: 10 mg GENERAL: awake, alert, oriented, NAD HEENT: (-) Pallor NECK: (-) JVD LUNGS: Bibasilar rhonchi, no wheezes HEART: RRR, normal S1 and S2 without murmur ABDOMEN: Soft, NT/ND, normoactive BS, no guarding. EXTREMITIES: 2+ DP pulses, warm, tense edema noted in lower extremities. PSYCHIATRIC: Cooperative. SKIN: chronic venous changes on lower extremities Laboratory Results - last 24 hr 09/24/18 09/24/18 09/24/18 16:24 20:00 21:09 Sodium 130 L Potassium 4.6 Chloride 92 L Carbon Dioxide 26 Anion Gap 13 BUN 27 H Creatinine 1.1 Creat Clearance w eGFR > 60 POC Glucometer 410 374 Random Glucose 379 H* Serum Osmolality Calcium 8.4 L Magnesium 1.5 L Total Bilirubin 0.9 Direct Bilirubin 0.4 H AST 15 ALT 23 Alkaline Phosphatase 142 H Troponin I < 0.02 Total Protein 6.8 Albumin 2.9 L 09/25/18 09/25/18 09/25/18 05:32 06:00 13:00 Sodium 128 L Potassium 4.4 Chloride 91 L Carbon Dioxide 28 Anion Gap 9 BUN 27 H Creatinine 1.0 Creat Clearance w eGFR > 60 POC Glucometer 487 339 Random Glucose 481 H* Serum Osmolality 306 H Calcium 8.5 Magnesium 3.0 H Total Bilirubin 0.6 Direct Bilirubin AST 12 L ALT 19 Alkaline Phosphatase 206 H Troponin I Total Protein 6.8 Albumin 2.8 L Problem List - Problems (1) Chest tightness Code(s): R07.89 - OTHER CHEST PAIN (2) Atrial fibrillation Code(s): I48.91 - UNSPECIFIED ATRIAL FIBRILLATION Qualifiers: Atrial fibrillation type: persistent Qualified Code(s): I48.1 - Persistent atrial fibrillation (3) CAD (coronary artery disease) Code(s): I25.10 - ATHSCL HEART DISEASE OF [place] CORONARY ARTERY W/O ANG PCTRS Qualifiers: Coronary Disease-Associated Artery/Lesion type: [place] artery [place] vs. transplanted heart: [place] heart Associated angina: without angina Qualified Code(s): I25.10 - Atherosclerotic heart disease of [place] coronary artery without angina pectoris (4) CHF (congestive heart failure) Code(s): I50.9 - HEART FAILURE, UNSPECIFIED Qualifiers: Heart failure type: unspecified Heart failure chronicity: acute on chronic Qualified Code(s): I50.9 - Heart failure, unspecified (5) COPD with acute exacerbation Code(s): J44.1 - CHRONIC OBSTRUCTIVE PULMONARY DISEASE W (ACUTE) EXACERBATION (6) Hypertension Code(s): I10 - ESSENTIAL (PRIMARY) HYPERTENSION Qualifiers: Hypertension type: essential hypertension Qualified Code(s): I10 - Essential (primary) hypertension (7) Pulmonary HTN Code(s): I27.20 - PULMONARY HYPERTENSION, UNSPECIFIED (8) Shortness of breath Code(s): R06.02 - SHORTNESS OF BREATH IMP COPD EXACERBATION ASHD S/P STENTS CHF AFIB LIKELY OSAS PULMONARY HTN PLAN MONITOR OFF IV STEROIDS INHALED BRONCHODILATORS O2 CARDIAC WORKUP ONGOING AC HEMANTH FORMAL OSAS WORKUP AFTER D/C Dr Jaramillo
--- NOTE | 2018-09-25 14:51 | PN ---
Teaching Attending Note Name of Resident: Carroll Cortes (Nephrology) ATTENDING PHYSICIAN STATEMENT I saw and evaluated the patient. I reviewed the resident's note and discussed the case with the resident. I agree with the resident's findings and plan as documented. Renal Pt seen and examined at bedside. He presented with chest pain and shortness of breath. He also complains of lower ext edema. Current Medications Generic Name Dose Route Start Last Admin Trade Name Freq PRN Reason Stop Dose Admin Acetaminophen 650 mg 09/24/18 09:08 09/25/18 05:30 Tylenol - PO 650 mg Q6H PRN Administration PAIN OR FEVER Albuterol/Ipratropium 1 amp 09/25/18 12:00 09/25/18 12:44 Duoneb - NEB 1 amp QIDR [facility]IDE[facility] Administration Atorvastatin Calcium 40 mg 09/24/18 22:00 09/24/18 22:22 Lipitor - PO 40 mg HS GIDEON Administration Dabigatran 150 mg 09/24/18 10:00 09/25/18 09:34 Pradaxa - PO 150 mg BID GIDE[facility] Administration Digoxin 0.25 mg 09/24/18 10:00 09/25/18 09:33 Lanoxin - PO 0.25 mg DAILY [facility]IDE[facility] Administration Guaifenesin 5 ml 09/25/18 05:38 09/25/18 13:02 Diabetic Tussin Dm - PO 5 ml Q4H PRN Administration COUGH Insulin Aspart 1 vial 09/24/18 11:00 09/25/18 13:03 Novolog Vial Sliding Scale - SQ 6 unit ACHS GIDEON Administration Protocol Insulin Detemir 15 units 09/24/18 22:00 09/25/18 06:20 Levemir Vial SQ 15 units BID@0700,2200 [facility] Administration Isosorbide Mononitrate 60 mg 09/24/18 10:00 09/25/18 09:33 Imdur - PO 60 mg DAILY [facility]IDE[facility] Administration Lisinopril 2.5 mg 09/24/18 10:00 09/25/18 09:32 Prinivil PO 2.5 mg DAILY [facility]IDE[facility] Administration Metoprolol Succinate 50 mg 09/24/18 10:00 09/25/18 09:33 Toprol Xl - PO 50 mg DAILY GIDEON Administration Montelukast Sodium 10 mg 09/24/18 22:00 09/24/18 22:20 Singulair - PO 10 mg HS GIDEON Administration Last Vital Signs Temp Pulse Resp BP Pulse Ox 97.4 F L 88 20 143/77 97 09/25/18 09:00 09/25/18 09:33 09/25/18 09:00 09/25/18 09:00 09/25/18 09:00 Laboratory Tests 09/24/18 09/24/18 09/25/18 05:45 20:00 06:00 WBC 9.4 Sodium 130 L 128 L Random Glucose 379 H* 481 H* Magnesium 3.0 H cardio s1s2 pulm ronchi Gi soft, obese ext plus 2 edema neuro awake and alert skin venous stasis changes Impression 1. CHF 2. hyponatremia 3. hypomagnesemia 4. asthma 5. a-fib 6. DM Plan - will need better glucose control - resume lasix and monitor lytes - pt has edema of the legs and complains of shortness of breath - will need better glucose control - will follow
[2018-09-25] MEDS: MONTELUKAST NA 10 MG TABLET PO SCH (23:37)
[2018-09-25] MEDS: ATORVASTATIN CA 40 MG TABLET (FP) PO SCH (23:37)
[2018-09-26] MEDS ORDERED: PT OWN MED DRAWER 7, Y5N ONE ×3 (01:13→21:07)
[2018-09-26] MEDS: ACETAMINOPHEN 325 MG TABLET (FP) PO PRN ×3 (03:25→18:36)
[2018-09-26] MEDS: FUROSEMIDE 40 MG TABLET (FP) PO SCH ×2 (06:16→13:53)
[2018-09-26] MEDS: INSULIN (LEVEMIR) 100 UNITS/ML UNITS SQ SCH ×2 (06:17→22:16)
[2018-09-26] MEDS: INSULIN SLIDING SCALE (NOVOLOG) 1 VIAL SQ SCH ×4 (06:19→21:17)
[2018-09-26 07:47] LABS: ALBUMIN 2.7 g/dl (3.4-5.0); ALK PHOS 133 U/L (45-117); ANION GAP 9 MMOL/L (8-16); BILIRUBIN,TOTAL 0.4 mg/dL (0.2-1); BLOOD UREA NITROGEN 24 mg/dL (7-18); CALCIUM 8.1 mg/dL (8.5-10.1); CHLORIDE 99 mmol/L (98-107); CO2 27 mmol/L (21-32); CREATININE 0.8 mg/dL (0.55-1.3); GLUCOSE,RANDOM 149 mg/dL (74-106); MAGNESIUM 1.7 mg/dL (1.8-2.4); SGOT/AST 13 U/L (15-37); SGPT/ALT 17 U/L (13-61); SODIUM 135 mmol/L (136-145); TOT PROT 6.4 g/dl (6.4-8.2)
[2018-09-26] MEDS: LISINOPRIL 5 MG TABLET (FP) PO SCH (09:07)
[2018-09-26] MEDS: DIGOXIN 0.25 MG TABLET (FP) PO SCH (09:07)
[2018-09-26] MEDS: DABIGATRAN ETEXILATE MESYLATE 150 MG CAPSULE PO SCH ×2 (09:08→21:15)
[2018-09-26] MEDS: ISOSORBIDE MONONITRATE 60 MG TAB.SR.24H (FP) PO SCH (09:08)
--- NOTE | 2018-09-26 10:10 | PN ---
Progress Note, Physician - Current Medication List Current Medications: Active Medications Acetaminophen (Tylenol -) 650 mg PO Q6H PRN PRN Reason: PAIN OR FEVER Last Admin: 09/26/18 09:19 Dose: 650 mg Albuterol/Ipratropium (Duoneb -) 1 amp NEB QIDR [facility] Last Admin: 09/25/18 18:00 Dose: 1 amp Atorvastatin Calcium (Lipitor -) 40 mg PO HS [facility] Last Admin: 09/25/18 23:37 Dose: 40 mg Dabigatran (Pradaxa -) 150 mg PO BID [facility] Last Admin: 09/26/18 09:08 Dose: 150 mg Digoxin (Lanoxin -) 0.25 mg PO DAILY [facility] Last Admin: 09/26/18 09:07 Dose: 0.25 mg Furosemide (Lasix -) 40 mg PO BID@0600,1400 [facility] Last Admin: 09/26/18 06:16 Dose: 40 mg Guaifenesin (Diabetic Tussin Dm -) 5 ml PO Q4H PRN PRN Reason: COUGH Last Admin: 09/25/18 23:42 Dose: 5 ml Insulin Aspart (Novolog Vial Sliding Scale -) 1 vial SQ [facility]; Protocol Last Admin: 09/26/18 06:19 Dose: Not Given Insulin Detemir (Levemir Vial) 15 units SQ BID@0700,2200 [facility] Last Admin: 09/26/18 06:17 Dose: 15 units Isosorbide Mononitrate (Imdur -) 60 mg PO DAILY [facility] Last Admin: 09/26/18 09:08 Dose: 60 mg Lisinopril (Prinivil) 2.5 mg PO DAILY [facility] Last Admin: 09/26/18 09:07 Dose: 2.5 mg Metoprolol Succinate (Toprol Xl -) 50 mg PO DAILY [facility] Last Admin: 09/26/18 09:07 Dose: 50 mg Montelukast Sodium (Singulair -) 10 mg PO [facility] Last Admin: 09/25/18 23:37 Dose: 10 mg - Objective Vital Signs: Vital Signs Temperature 97.8 F 09/26/18 06:00 Pulse Rate 86 09/26/18 09:07 Respiratory Rate 16 09/26/18 08:13 Blood Pressure 120/83 09/26/18 08:13 O2 Sat by Pulse Oximetry (%) 97 09/25/18 21:00 Cardiovascular: Yes: S1, S2 Respiratory: Yes: Diminished, On Nasal O2, Rhonchi Gastrointestinal: Yes: Normal Bowel Sounds, Soft Labs: CBC, BMP 09/24/18 05:45 09/26/18 06:25 Problem List - Problems (1) COPD with acute exacerbation Assessment/Plan: Continue Cardiac monitoring HEART Score 4 EKG- Afib with RVR Solumederol Chest Xray report- no infiltrate, no effusion Appreciate Pulmonology consult Duonebs Peak flows O2 prn Code(s): J44.1 - CHRONIC OBSTRUCTIVE PULMONARY DISEASE W (ACUTE) EXACERBATION (2) Atrial fibrillation Assessment/Plan: EKG- reviewed [id number] 4 Continue Pradaxa Code(s): I48.91 - UNSPECIFIED ATRIAL FIBRILLATION Qualifiers: Atrial fibrillation type: persistent Qualified Code(s): I48.1 - Persistent atrial fibrillation (3) CAD (coronary artery disease) Assessment/Plan: Continue home meds EKG- reviewed Chest xray reviewed given Asa 162 now for ACS Serial Enzymes Appreciate Cardiology consult Code(s): I25.10 - ATHSCL HEART DISEASE OF [place] CORONARY ARTERY W/O ANG PCTRS Qualifiers: Coronary Disease-Associated Artery/Lesion type: [place] artery [place] vs. transplanted heart: [place] heart Associated angina: without angina Qualified Code(s): I25.10 - Atherosclerotic heart disease of [place] coronary artery without angina pectoris (4) CHF (congestive heart failure) Assessment/Plan: BNP 780 Chest xray image- ns CHF, no effusion, no infiltrate Continue home medications O2 prn Monitor CBC, BMP Daily weights INOs Code(s): I50.9 - HEART FAILURE, UNSPECIFIED Qualifiers: Heart failure type: unspecified Heart failure chronicity: acute on chronic Qualified Code(s): I50.9 - Heart failure, unspecified
[2018-09-26] MEDS: ALBUTEROL SO4 2.5/IPRATROPIUM 0.5 INH SOL 3 ML VIAL.NEB. NEB SCH (11:56)
--- NOTE | 2018-09-26 12:57 | PN ---
Progress Note, Physician History of Present Illness: pulmonary alert,still c/o sob,cough - Current Medication List Current Medications: Active Medications Acetaminophen (Tylenol -) 650 mg PO Q6H PRN PRN Reason: PAIN OR FEVER Last Admin: 09/26/18 09:19 Dose: 650 mg Albuterol/Ipratropium (Duoneb -) 1 amp NEB QIDR [facility] Last Admin: 09/26/18 11:56 Dose: 1 amp Atorvastatin Calcium (Lipitor -) 40 mg PO HS [facility] Last Admin: 09/25/18 23:37 Dose: 40 mg Dabigatran (Pradaxa -) 150 mg PO BID [facility] Last Admin: 09/26/18 09:08 Dose: 150 mg Digoxin (Lanoxin -) 0.25 mg PO DAILY [facility] Last Admin: 09/26/18 09:07 Dose: 0.25 mg Furosemide (Lasix -) 40 mg PO BID@0600,1400 [facility] Last Admin: 09/26/18 06:16 Dose: 40 mg Guaifenesin (Diabetic Tussin Dm -) 5 ml PO Q4H PRN PRN Reason: COUGH Last Admin: 09/25/18 23:42 Dose: 5 ml Insulin Aspart (Novolog Vial Sliding Scale -) 1 vial SQ [facility]; Protocol Last Admin: 09/26/18 12:18 Dose: Not Given Insulin Detemir (Levemir Vial) 15 units SQ BID@0700,2200 [facility] Last Admin: 09/26/18 06:17 Dose: 15 units Isosorbide Mononitrate (Imdur -) 60 mg PO DAILY [facility] Last Admin: 09/26/18 09:08 Dose: 60 mg Lisinopril (Prinivil) 2.5 mg PO DAILY [facility] Last Admin: 09/26/18 09:07 Dose: 2.5 mg Metoprolol Succinate (Toprol Xl -) 50 mg PO DAILY [facility] Last Admin: 09/26/18 09:07 Dose: 50 mg Montelukast Sodium (Singulair -) 10 mg PO [facility] Last Admin: 09/25/18 23:37 Dose: 10 mg - Objective Vital Signs: Vital Signs Temperature 97.8 F 09/26/18 06:00 Pulse Rate 86 09/26/18 09:07 Respiratory Rate 16 09/26/18 10:00 Blood Pressure 120/83 09/26/18 08:13 O2 Sat by Pulse Oximetry (%) 97 09/26/18 10:00 Constitutional: Yes: Well Nourished, Calm Eyes: Yes: WNL HENT: Yes: WNL Neck: Yes: WNL Cardiovascular: Yes: Pulse Irregular, S1, S2 Respiratory: Yes: Wheezes (scattered wheezes) Gastrointestinal: Yes: Normal Bowel Sounds Extremities: Yes: WNL Edema: Yes Labs: CBC, BMP 09/24/18 05:45 09/26/18 06:25 Problem List - Problems (1) Chest tightness Code(s): R07.89 - OTHER CHEST PAIN (2) Atrial fibrillation Code(s): I48.91 - UNSPECIFIED ATRIAL FIBRILLATION Qualifiers: Atrial fibrillation type: persistent Qualified Code(s): I48.1 - Persistent atrial fibrillation (3) CAD (coronary artery disease) Code(s): I25.10 - ATHSCL HEART DISEASE OF [place] CORONARY ARTERY W/O ANG PCTRS Qualifiers: Coronary Disease-Associated Artery/Lesion type: [place] artery [place] vs. transplanted heart: [place] heart Associated angina: without angina Qualified Code(s): I25.10 - Atherosclerotic heart disease of [place] coronary artery without angina pectoris (4) CHF (congestive heart failure) Code(s): I50.9 - HEART FAILURE, UNSPECIFIED Qualifiers: Heart failure type: unspecified Heart failure chronicity: acute on chronic Qualified Code(s): I50.9 - Heart failure, unspecified (5) COPD with acute exacerbation Code(s): J44.1 - CHRONIC OBSTRUCTIVE PULMONARY DISEASE W (ACUTE) EXACERBATION (6) Hypertension Code(s): I10 - ESSENTIAL (PRIMARY) HYPERTENSION Qualifiers: Hypertension type: essential hypertension Qualified Code(s): I10 - Essential (primary) hypertension (7) Pulmonary HTN Code(s): I27.20 - PULMONARY HYPERTENSION, UNSPECIFIED (8) Shortness of breath Code(s): R06.02 - SHORTNESS OF BREATH Assessment/Plan IMP COPD EXACERBATION ASHD S/P STENTS CHF AFIB LIKELY OSAS PULMONARY HTN PLAN IV STEROIDS INHALED BRONCHODILATORS O2 AC CPAP TONIGHT DR TEJEDA Problem List - Problems (1) Chest tightness Code(s): R07.89 - OTHER CHEST PAIN (2) Atrial fibrillation Code(s): I48.91 - UNSPECIFIED ATRIAL FIBRILLATION Qualifiers: Atrial fibrillation type: persistent Qualified Code(s): I48.1 - Persistent atrial fibrillation (3) CAD (coronary artery disease) Code(s): I25.10 - ATHSCL HEART DISEASE OF [place] CORONARY ARTERY W/O ANG PCTRS Qualifiers: Coronary Disease-Associated Artery/Lesion type: [place] artery [place] vs. transplanted heart: [place] heart Associated angina: without angina Qualified Code(s): I25.10 - Atherosclerotic heart disease of [place] coronary artery without angina pectoris (4) CHF (congestive heart failure) Code(s): I50.9 - HEART FAILURE, UNSPECIFIED Qualifiers: Heart failure type: unspecified Heart failure chronicity: acute on chronic Qualified Code(s): I50.9 - Heart failure, unspecified (5) COPD with acute exacerbation Code(s): J44.1 - CHRONIC OBSTRUCTIVE PULMONARY DISEASE W (ACUTE) EXACERBATION (6) Hypertension Code(s): I10 - ESSENTIAL (PRIMARY) HYPERTENSION Qualifiers: Hypertension type: essential hypertension Qualified Code(s): I10 - Essential (primary) hypertension (7) Pulmonary HTN Code(s): I27.20 - PULMONARY HYPERTENSION, UNSPECIFIED (8) Shortness of breath Code(s): R06.02 - SHORTNESS OF BREATH
[2018-09-26] MEDS: methylPREDNISolone NA SUCC 40 MG/1 ML VIAL IVPUSH SCH ×2 (13:53→17:18)
[2018-09-26] MEDS: ALBUTEROL SO4 0.083% IH SOL 2.5 MG/3 ML VIAL.NEB. NEB PRN ×2 (14:29→21:43)
[2018-09-26 15:31] VITALS: BMI 32.2
--- NOTE | 2018-09-26 17:15 | PN ---
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 CHF 2. hyponatremia 3. hypomagnesemia 4. asthma 5. a-fib 6. DM Active Medications Acetaminophen (Tylenol -) 650 mg PO Q6H PRN PRN Reason: PAIN OR FEVER Last Admin: 09/26/18 09:19 Dose: 650 mg Albuterol Sulfate (Ventolin 0.083% Nebulizer Soln -) 1 amp NEB Q4H PRN PRN Reason: SHORT OF BREATH/WHEEZING Last Admin: 09/26/18 14:29 Dose: 1 amp Atorvastatin Calcium (Lipitor -) 40 mg PO HS [facility] Last Admin: 09/25/18 23:37 Dose: 40 mg Budesonide/Formoterol Fumarate (Symbicort 160/4.5mcg -) 2 puff IH BID [facility] Dabigatran (Pradaxa -) 150 mg PO BID [facility] Last Admin: 09/26/18 09:08 Dose: 150 mg Digoxin (Lanoxin -) 0.25 mg PO DAILY [facility] Last Admin: 09/26/18 09:07 Dose: 0.25 mg Furosemide (Lasix -) 40 mg PO BID@0600,1400 [facility] Last Admin: 09/26/18 13:53 Dose: 40 mg Guaifenesin (Diabetic Tussin Dm -) 5 ml PO Q4H PRN PRN Reason: COUGH Last Admin: 09/25/18 23:42 Dose: 5 ml Insulin Aspart (Novolog Vial Sliding Scale -) 1 vial SQ ACHS [facility]; Protocol Last Admin: 09/26/18 12:18 Dose: Not Given Insulin Detemir (Levemir Vial) 15 units SQ BID@0700,2200 [facility] Last Admin: 09/26/18 06:17 Dose: 15 units Isosorbide Mononitrate (Imdur -) 60 mg PO DAILY [facility] Last Admin: 09/26/18 09:08 Dose: 60 mg Lisinopril (Prinivil) 2.5 mg PO DAILY [facility] Last Admin: 09/26/18 09:07 Dose: 2.5 mg Methylprednisolone Sodium Succinate (Solu-Medrol -) 40 mg IVPUSH Q8H-IV [facility] Last Admin: 09/26/18 13:53 Dose: 40 mg Metoprolol Succinate (Toprol Xl -) 50 mg PO DAILY [facility] Last Admin: 09/26/18 09:07 Dose: 50 mg Montelukast Sodium (Singulair -) 10 mg PO HS [facility] Last Admin: 09/25/18 23:37 Dose: 10 mg Tiotropium [place] (Spiriva Respimat) 2 puff IH DAILY [facility] Last Vital Signs Temp Pulse Resp BP Pulse Ox 97.8 F 75 18 136/75 97 09/26/18 14:21 09/26/18 14:21 09/26/18 14:21 09/26/18 14:21 09/26/18 10:00 CBC, BMP 09/24/18 05:45 09/26/18 06:25
[2018-09-26] MEDS: TIOTROPIUM BROMIDE 2.5 MCG (SPIRIVA) RESPIMAT INHALER IH SCH (17:23)
[2018-09-26] MEDS: BUDESONIDE/FORMETEROL FUMARATE 160/4.5 mcg INHALER IH SCH (21:13)
[2018-09-26] MEDS: ATORVASTATIN CA 40 MG TABLET (FP) PO SCH (21:15)
[2018-09-26] MEDS: MONTELUKAST NA 10 MG TABLET PO SCH (21:15)
[2018-09-27] MEDS: methylPREDNISolone NA SUCC 40 MG/1 ML VIAL IVPUSH SCH ×3 (01:24→17:06)
[2018-09-27] MEDS: INSULIN (LEVEMIR) 100 UNITS/ML UNITS SQ SCH ×2 (06:20→21:20)
[2018-09-27] MEDS: FUROSEMIDE 40 MG TABLET (FP) PO SCH ×2 (06:20→13:12)
[2018-09-27] MEDS: INSULIN SLIDING SCALE (NOVOLOG) 1 VIAL SQ SCH ×4 (06:20→21:20)
[2018-09-27] MEDS ORDERED: PT OWN MED DRAWER 7, Y5N ONE ×2 (08:47→21:14)
[2018-09-27] MEDS: guaiFENesin/D-M SUGAR-FREE/ACLHOL-FREE 118 ML BOTTLE PO PRN (08:57)
[2018-09-27] MEDS: ISOSORBIDE MONONITRATE 60 MG TAB.SR.24H (FP) PO SCH (09:00)
[2018-09-27] MEDS: DIGOXIN 0.25 MG TABLET (FP) PO SCH (09:04)
[2018-09-27] MEDS: LISINOPRIL 5 MG TABLET (FP) PO SCH (09:05)
[2018-09-27] MEDS: DABIGATRAN ETEXILATE MESYLATE 150 MG CAPSULE PO SCH ×2 (09:05→21:21)
[2018-09-27] MEDS: BUDESONIDE/FORMETEROL FUMARATE 160/4.5 mcg INHALER IH SCH ×2 (09:06→21:21)
[2018-09-27] MEDS: TIOTROPIUM BROMIDE 2.5 MCG (SPIRIVA) RESPIMAT INHALER IH SCH (09:06)
--- NOTE | 2018-09-27 10:29 | PN ---
Progress Note, Physician History of Present Illness: PULMONARY ALERT,LESS CONGESTED,+ COUGH - Current Medication List Current Medications: Active Medications Acetaminophen (Tylenol -) 650 mg PO Q6H PRN PRN Reason: PAIN OR FEVER Last Admin: 09/26/18 18:36 Dose: 650 mg Albuterol Sulfate (Ventolin 0.083% Nebulizer Soln -) 1 amp NEB Q4H PRN PRN Reason: SHORT OF BREATH/WHEEZING Last Admin: 09/26/18 21:43 Dose: 1 amp Atorvastatin Calcium (Lipitor -) 40 mg PO HS [facility] Last Admin: 09/26/18 21:15 Dose: 40 mg Budesonide/Formoterol Fumarate (Symbicort 160/4.5mcg -) 2 puff IH BID [facility] Last Admin: 09/27/18 09:06 Dose: 2 puff Dabigatran (Pradaxa -) 150 mg PO BID [facility] Last Admin: 09/27/18 09:05 Dose: 150 mg Digoxin (Lanoxin -) 0.25 mg PO DAILY [facility] Last Admin: 09/27/18 09:04 Dose: 0.25 mg Furosemide (Lasix -) 40 mg PO BID@0600,1400 [facility] Last Admin: 09/27/18 06:20 Dose: 40 mg Guaifenesin (Diabetic Tussin Dm -) 5 ml PO Q4H PRN PRN Reason: COUGH Last Admin: 09/27/18 08:57 Dose: 5 ml Insulin Aspart (Novolog Vial Sliding Scale -) 1 vial SQ ACHS [facility]; Protocol Last Admin: 09/27/18 06:20 Dose: 10 unit Insulin Detemir (Levemir Vial) 15 units SQ BID@0700,2200 [facility] Last Admin: 09/27/18 06:20 Dose: 15 units Isosorbide Mononitrate (Imdur -) 60 mg PO DAILY [facility] Last Admin: 09/26/18 09:08 Dose: 60 mg Lisinopril (Prinivil) 2.5 mg PO DAILY [facility] Last Admin: 09/27/18 09:05 Dose: 2.5 mg Methylprednisolone Sodium Succinate (Solu-Medrol -) 40 mg IVPUSH Q8H-IV [facility] Last Admin: 09/27/18 09:05 Dose: 40 mg Metoprolol Succinate (Toprol Xl -) 50 mg PO DAILY [facility] Last Admin: 09/27/18 09:04 Dose: 50 mg Montelukast Sodium (Singulair -) 10 mg PO HS [facility] Last Admin: 09/26/18 21:15 Dose: 10 mg Tiotropium [place] (Spiriva Respimat) 2 puff IH DAILY [facility] Last Admin: 09/27/18 09:06 Dose: 2 puff - Objective Vital Signs: Vital Signs Temperature 97.9 F 09/27/18 05:37 Pulse Rate 84 09/27/18 09:04 Respiratory Rate 20 09/27/18 05:37 Blood Pressure 154/98 09/27/18 05:37 O2 Sat by Pulse Oximetry (%) 96 09/26/18 21:00 Constitutional: Yes: Well Nourished, Calm Eyes: Yes: WNL HENT: Yes: WNL Neck: Yes: WNL Cardiovascular: Yes: Pulse Irregular, S1, S2 Respiratory: Yes: Wheezes (SCATTERED OLLIE WHEEZES) Gastrointestinal: Yes: Normal Bowel Sounds, Soft Extremities: Yes: WNL Edema: Yes Labs: CBC, BMP Problem List - Problems (1) Chest tightness Code(s): R07.89 - OTHER CHEST PAIN (2) Atrial fibrillation Code(s): I48.91 - UNSPECIFIED ATRIAL FIBRILLATION Qualifiers: Atrial fibrillation type: persistent Qualified Code(s): I48.1 - Persistent atrial fibrillation (3) CAD (coronary artery disease) Code(s): I25.10 - ATHSCL HEART DISEASE OF [place] CORONARY ARTERY W/O ANG PCTRS Qualifiers: Coronary Disease-Associated Artery/Lesion type: [place] artery [place] vs. transplanted heart: [place] heart Associated angina: without angina Qualified Code(s): I25.10 - Atherosclerotic heart disease of [place] coronary artery without angina pectoris (4) CHF (congestive heart failure) Code(s): I50.9 - HEART FAILURE, UNSPECIFIED Qualifiers: Heart failure type: unspecified Heart failure chronicity: acute on chronic Qualified Code(s): I50.9 - Heart failure, unspecified (5) COPD with acute exacerbation Code(s): J44.1 - CHRONIC OBSTRUCTIVE PULMONARY DISEASE W (ACUTE) EXACERBATION (6) Hypertension Code(s): I10 - ESSENTIAL (PRIMARY) HYPERTENSION Qualifiers: Hypertension type: essential hypertension Qualified Code(s): I10 - Essential (primary) hypertension (7) Pulmonary HTN Code(s): I27.20 - PULMONARY HYPERTENSION, UNSPECIFIED (8) Shortness of breath Code(s): R06.02 - SHORTNESS OF BREATH Assessment/Plan IMP COPD EXACERBATION ASHD S/P STENTS CHF AFIB LIKELY OSAS PULMONARY HTN PLAN IV STEROIDS SAME DOSE INHALED BRONCHODILATORS O2 AC CPAP KATY TEJEDA Problem List - Problems (1) Chest tightness Code(s): R07.89 - OTHER CHEST PAIN (2) Atrial fibrillation Code(s): I48.91 - UNSPECIFIED ATRIAL FIBRILLATION Qualifiers: Atrial fibrillation type: persistent Qualified Code(s): I48.1 - Persistent atrial fibrillation (3) CAD (coronary artery disease) Code(s): I25.10 - ATHSCL HEART DISEASE OF [place] CORONARY ARTERY W/O ANG PCTRS Qualifiers: Coronary Disease-Associated Artery/Lesion type: [place] artery [place] vs. transplanted heart: [place] heart Associated angina: without angina Qualified Code(s): I25.10 - Atherosclerotic heart disease of [place] coronary artery without angina pectoris (4) CHF (congestive heart failure) Code(s): I50.9 - HEART FAILURE, UNSPECIFIED Qualifiers: Heart failure type: unspecified Heart failure chronicity: acute on chronic Qualified Code(s): I50.9 - Heart failure, unspecified (5) COPD with acute exacerbation Code(s): J44.1 - CHRONIC OBSTRUCTIVE PULMONARY DISEASE W (ACUTE) EXACERBATION (6) Hypertension Code(s): I10 - ESSENTIAL (PRIMARY) HYPERTENSION Qualifiers: Hypertension type: essential hypertension Qualified Code(s): I10 - Essential (primary) hypertension (7) Pulmonary HTN Code(s): I27.20 - PULMONARY HYPERTENSION, UNSPECIFIED (8) Shortness of breath Code(s): R06.02 - SHORTNESS OF BREATH
--- NOTE | 2018-09-27 12:15 | PN ---
Progress Note, Physician Chief Complaint: AWAKE ALERT FEELING BETTER STILL COUGHING - Current Medication List Current Medications: Active Medications Acetaminophen (Tylenol -) 650 mg PO Q6H PRN PRN Reason: PAIN OR FEVER Last Admin: 09/26/18 18:36 Dose: 650 mg Albuterol Sulfate (Ventolin 0.083% Nebulizer Soln -) 1 amp NEB Q4H PRN PRN Reason: SHORT OF BREATH/WHEEZING Last Admin: 09/26/18 21:43 Dose: 1 amp Atorvastatin Calcium (Lipitor -) 40 mg PO HS [facility] Last Admin: 09/26/18 21:15 Dose: 40 mg Budesonide/Formoterol Fumarate (Symbicort 160/4.5mcg -) 2 puff IH BID [facility] Last Admin: 09/27/18 09:06 Dose: 2 puff Dabigatran (Pradaxa -) 150 mg PO BID [facility] Last Admin: 09/27/18 09:05 Dose: 150 mg Digoxin (Lanoxin -) 0.25 mg PO DAILY [facility] Last Admin: 09/27/18 09:04 Dose: 0.25 mg Furosemide (Lasix -) 40 mg PO BID@0600,1400 [facility] Last Admin: 09/27/18 06:20 Dose: 40 mg Guaifenesin (Diabetic Tussin Dm -) 5 ml PO Q4H PRN PRN Reason: COUGH Last Admin: 09/27/18 08:57 Dose: 5 ml Insulin Aspart (Novolog Vial Sliding Scale -) 1 vial SQ [facility]; Protocol Last Admin: 09/27/18 11:54 Dose: 8 unit Insulin Detemir (Levemir Vial) 15 units SQ BID@0700,2200 [facility] Last Admin: 09/27/18 06:20 Dose: 15 units Isosorbide Mononitrate (Imdur -) 60 mg PO DAILY [facility] Last Admin: 09/27/18 09:00 Dose: 60 mg Lisinopril (Prinivil) 2.5 mg PO DAILY [facility] Last Admin: 09/27/18 09:05 Dose: 2.5 mg Methylprednisolone Sodium Succinate (Solu-Medrol -) 40 mg IVPUSH Q8H-IV [facility] Last Admin: 09/27/18 09:05 Dose: 40 mg Metoprolol Succinate (Toprol Xl -) 50 mg PO DAILY [facility] Last Admin: 09/27/18 09:04 Dose: 50 mg Montelukast Sodium (Singulair -) 10 mg PO HS [facility] Last Admin: 09/26/18 21:15 Dose: 10 mg Tiotropium [place] (Spiriva Respimat) 2 puff IH DAILY [facility] Last Admin: 09/27/18 09:06 Dose: 2 puff - Objective Vital Signs: Vital Signs Temperature 97.8 F 09/27/18 10:00 Pulse Rate 84 09/27/18 10:00 Respiratory Rate 20 09/27/18 10:00 Blood Pressure 131/55 L 09/27/18 10:00 O2 Sat by Pulse Oximetry (%) 96 09/26/18 21:00 Constitutional: Yes: Mild Distress Eyes: Yes: WNL HENT: Yes: WNL Neck: Yes: WNL Cardiovascular: Yes: WNL Respiratory: Yes: Cough, On Nasal O2, Wheezes Gastrointestinal: Yes: WNL Genitourinary: Yes: WNL Musculoskeletal: Yes: WNL Extremities: Yes: WNL Edema: Yes Integumentary: Yes: Erythema Wound/Incision: Yes: Clean/Dry Neurological: Yes: WNL ...Motor Strength: WNL Psychiatric: Yes: WNL Labs: CBC, BMP 09/24/18 05:45 09/26/18 06:25 Problem List - Problems (1) Chest tightness Code(s): R07.89 - OTHER CHEST PAIN (2) Atrial fibrillation Code(s): I48.91 - UNSPECIFIED ATRIAL FIBRILLATION Qualifiers: Atrial fibrillation type: persistent Qualified Code(s): I48.1 - Persistent atrial fibrillation (3) CAD (coronary artery disease) Code(s): I25.10 - ATHSCL HEART DISEASE OF [place] CORONARY ARTERY W/O ANG PCTRS Qualifiers: Coronary Disease-Associated Artery/Lesion type: [place] artery [place] vs. transplanted heart: [place] heart Associated angina: without angina Qualified Code(s): I25.10 - Atherosclerotic heart disease of [place] coronary artery without angina pectoris (4) CHF exacerbation Code(s): I50.9 - HEART FAILURE, UNSPECIFIED Qualifiers: Heart failure type: unspecified Qualified Code(s): I50.9 - Heart failure, unspecified (5) COPD with acute exacerbation Code(s): J44.1 - CHRONIC OBSTRUCTIVE PULMONARY DISEASE W (ACUTE) EXACERBATION Assessment/Plan IV STEROIDS CONTINUE NEBS 02 SUPPORT DVT PROPHYLZIS OOB TO CHAIR COUGH SUPPRESSANTS
[2018-09-27] MEDS: ACETAMINOPHEN 325 MG TABLET (FP) PO PRN ×2 (13:14→19:05)
[2018-09-27] MEDS: ALBUTEROL SO4 0.083% IH SOL 2.5 MG/3 ML VIAL.NEB. NEB PRN (20:25)
[2018-09-27] MEDS: ATORVASTATIN CA 40 MG TABLET (FP) PO SCH (21:21)
[2018-09-27] MEDS: MONTELUKAST NA 10 MG TABLET PO SCH (21:21)
[2018-09-28] MEDS: methylPREDNISolone NA SUCC 40 MG/1 ML VIAL IVPUSH SCH ×3 (01:39→17:00)
[2018-09-28] MEDS: FUROSEMIDE 40 MG TABLET (FP) PO SCH ×2 (06:10→13:51)
[2018-09-28] MEDS: INSULIN SLIDING SCALE (NOVOLOG) 1 VIAL SQ SCH ×4 (06:10→22:06)
[2018-09-28] MEDS: INSULIN (LEVEMIR) 100 UNITS/ML UNITS SQ SCH ×2 (06:13→22:06)
[2018-09-28 07:35] LABS: HEMATOCRIT 42.3 % (35.4-49); HEMOGLOBIN 13.4 GM/dL (11.7-16.9); MCHC 31.8 g/dl (32.0-35.9); MEAN CELL VOLUME 88.3 fl (80-96); MEAN PLT VOLUME 9.9 fl (7.5-11.1); PLATELET COUNT 129 K/MM3 (134-434); RBC 4.79 M/mm3 (4.00-5.60); RDW 16.8 % (11.9-15.9); WHITE BLOOD COUNT 11.9 K/mm3 (4.0-10.0)
[2018-09-28 08:44] LABS: ANION GAP 11 MMOL/L (8-16); BLOOD UREA NITROGEN 31 mg/dL (7-18); CALCIUM 8.9 mg/dL (8.5-10.1); CHLORIDE 95 mmol/L (98-107); CO2 26 mmol/L (21-32); CREATININE 0.8 mg/dL (0.55-1.3); GLUCOSE,RANDOM 280 mg/dL (74-106); MAGNESIUM 1.9 mg/dL (1.8-2.4); POTASSIUM 4.1 mmol/L (3.5-5.1); SODIUM 133 mmol/L (136-145)
[2018-09-28] MEDS ORDERED: PT OWN MED DRAWER 7, Y5N ONE ×3 (09:16→23:49)
[2018-09-28] MEDS: LISINOPRIL 5 MG TABLET (FP) PO SCH (09:23)
[2018-09-28] MEDS: DIGOXIN 0.25 MG TABLET (FP) PO SCH (09:23)
[2018-09-28] MEDS: ACETAMINOPHEN 325 MG TABLET (FP) PO PRN ×2 (09:24→16:03)
[2018-09-28] MEDS: ISOSORBIDE MONONITRATE 60 MG TAB.SR.24H (FP) PO SCH (09:25)
[2018-09-28] MEDS: TIOTROPIUM BROMIDE 2.5 MCG (SPIRIVA) RESPIMAT INHALER IH SCH (09:25)
[2018-09-28] MEDS: DABIGATRAN ETEXILATE MESYLATE 150 MG CAPSULE PO SCH ×2 (09:25→22:07)
[2018-09-28] MEDS: BUDESONIDE/FORMETEROL FUMARATE 160/4.5 mcg INHALER IH SCH ×2 (09:27→22:08)
--- NOTE | 2018-09-28 11:29 | PN ---
Progress Note, Physician History of Present Illness: pulmonary alert,less dyspneic,less congested - Current Medication List Current Medications: Active Medications Acetaminophen (Tylenol -) 650 mg PO Q6H PRN PRN Reason: PAIN OR FEVER Last Admin: 09/28/18 09:24 Dose: 650 mg Albuterol Sulfate (Ventolin 0.083% Nebulizer Soln -) 1 amp NEB Q4H PRN PRN Reason: SHORT OF BREATH/WHEEZING Last Admin: 09/27/18 20:25 Dose: 1 amp Atorvastatin Calcium (Lipitor -) 40 mg PO HS [facility] Last Admin: 09/27/18 21:21 Dose: 40 mg Budesonide/Formoterol Fumarate (Symbicort 160/4.5mcg -) 2 puff IH BID [facility] Last Admin: 09/28/18 09:27 Dose: 2 puff Dabigatran (Pradaxa -) 150 mg PO BID [facility] Last Admin: 09/28/18 09:25 Dose: 150 mg Digoxin (Lanoxin -) 0.25 mg PO DAILY [facility] Last Admin: 09/28/18 09:23 Dose: 0.25 mg Furosemide (Lasix -) 40 mg PO BID@0600,1400 [facility] Last Admin: 09/28/18 06:10 Dose: 40 mg Guaifenesin (Diabetic Tussin Dm -) 5 ml PO Q4H PRN PRN Reason: COUGH Last Admin: 09/27/18 08:57 Dose: 5 ml Insulin Aspart (Novolog Vial Sliding Scale -) 1 vial SQ [facility]; Protocol Last Admin: 09/28/18 06:10 Dose: 4 unit Insulin Detemir (Levemir Vial) 15 units SQ BID@0700,2200 [facility] Last Admin: 09/28/18 06:13 Dose: 15 units Isosorbide Mononitrate (Imdur -) 60 mg PO DAILY [facility] Last Admin: 09/28/18 09:25 Dose: 60 mg Lisinopril (Prinivil) 2.5 mg PO DAILY [facility] Last Admin: 09/28/18 09:23 Dose: 2.5 mg Methylprednisolone Sodium Succinate (Solu-Medrol -) 40 mg IVPUSH Q8H-IV [facility] Last Admin: 09/28/18 09:24 Dose: 40 mg Metoprolol Succinate (Toprol Xl -) 50 mg PO DAILY [facility] Last Admin: 09/28/18 09:27 Dose: 50 mg Montelukast Sodium (Singulair -) 10 mg PO HS [facility] Last Admin: 09/27/18 21:21 Dose: 10 mg Tiotropium [place] (Spiriva Respimat) 2 puff IH DAILY [facility] Last Admin: 09/28/18 09:25 Dose: 2 puff - Objective Vital Signs: Vital Signs Temperature 97.9 F 09/28/18 10:00 Pulse Rate 74 09/28/18 10:00 Respiratory Rate 20 09/28/18 10:00 Blood Pressure 149/83 09/28/18 10:00 O2 Sat by Pulse Oximetry (%) 94 L 09/27/18 20:53 Constitutional: Yes: Well Nourished, Calm Eyes: Yes: WNL HENT: Yes: WNL Neck: Yes: WNL Cardiovascular: Yes: Pulse Irregular, S1, S2 Respiratory: Yes: Wheezes (less wheezes rosalva) Gastrointestinal: Yes: Normal Bowel Sounds, Soft Extremities: Yes: WNL Edema: Yes Labs: CBC, BMP 09/28/18 06:00 09/28/18 06:00 Problem List - Problems (1) Chest tightness Code(s): R07.89 - OTHER CHEST PAIN (2) Atrial fibrillation Code(s): I48.91 - UNSPECIFIED ATRIAL FIBRILLATION Qualifiers: Atrial fibrillation type: persistent Qualified Code(s): I48.1 - Persistent atrial fibrillation (3) CAD (coronary artery disease) Code(s): I25.10 - ATHSCL HEART DISEASE OF [place] CORONARY ARTERY W/O ANG PCTRS Qualifiers: Coronary Disease-Associated Artery/Lesion type: [place] artery [place] vs. transplanted heart: [place] heart Associated angina: without angina Qualified Code(s): I25.10 - Atherosclerotic heart disease of [place] coronary artery without angina pectoris (4) CHF (congestive heart failure) Code(s): I50.9 - HEART FAILURE, UNSPECIFIED Qualifiers: Heart failure type: unspecified Heart failure chronicity: acute on chronic Qualified Code(s): I50.9 - Heart failure, unspecified (5) COPD with acute exacerbation Code(s): J44.1 - CHRONIC OBSTRUCTIVE PULMONARY DISEASE W (ACUTE) EXACERBATION (6) Hypertension Code(s): I10 - ESSENTIAL (PRIMARY) HYPERTENSION Qualifiers: Hypertension type: essential hypertension Qualified Code(s): I10 - Essential (primary) hypertension (7) Pulmonary HTN Code(s): I27.20 - PULMONARY HYPERTENSION, UNSPECIFIED (8) Shortness of breath Code(s): R06.02 - SHORTNESS OF BREATH Assessment/Plan IMP COPD EXACERBATION ASHD S/P STENTS CHF AFIB LIKELY OSAS PULMONARY HTN PLAN STEROID TAPER INHALED BRONCHODILATORS O2 AC CPAP TONIGHT DR TEJEDA Problem List - Problems (1) Chest tightness Code(s): R07.89 - OTHER CHEST PAIN (2) Atrial fibrillation Code(s): I48.91 - UNSPECIFIED ATRIAL FIBRILLATION Qualifiers: Atrial fibrillation type: persistent Qualified Code(s): I48.1 - Persistent atrial fibrillation (3) CAD (coronary artery disease) Code(s): I25.10 - ATHSCL HEART DISEASE OF [place] CORONARY ARTERY W/O ANG PCTRS Qualifiers: Coronary Disease-Associated Artery/Lesion type: [place] artery [place] vs. transplanted heart: [place] heart Associated angina: without angina Qualified Code(s): I25.10 - Atherosclerotic heart disease of [place] coronary artery without angina pectoris (4) CHF (congestive heart failure) Code(s): I50.9 - HEART FAILURE, UNSPECIFIED Qualifiers: Heart failure type: unspecified Heart failure chronicity: acute on chronic Qualified Code(s): I50.9 - Heart failure, unspecified (5) COPD with acute exacerbation Code(s): J44.1 - CHRONIC OBSTRUCTIVE PULMONARY DISEASE W (ACUTE) EXACERBATION (6) Hypertension Code(s): I10 - ESSENTIAL (PRIMARY) HYPERTENSION Qualifiers: Hypertension type: essential hypertension Qualified Code(s): I10 - Essential (primary) hypertension (7) Pulmonary HTN Code(s): I27.20 - PULMONARY HYPERTENSION, UNSPECIFIED (8) Shortness of breath Code(s): R06.02 - SHORTNESS OF BREATH
--- NOTE | 2018-09-28 11:32 | PN ---
Progress Note, Physician Chief Complaint: AWAKE ALERT SOB/COUGH - Current Medication List Current Medications: Active Medications Acetaminophen (Tylenol -) 650 mg PO Q6H PRN PRN Reason: PAIN OR FEVER Last Admin: 09/28/18 09:24 Dose: 650 mg Albuterol Sulfate (Ventolin 0.083% Nebulizer Soln -) 1 amp NEB Q4H PRN PRN Reason: SHORT OF BREATH/WHEEZING Last Admin: 09/27/18 20:25 Dose: 1 amp Atorvastatin Calcium (Lipitor -) 40 mg PO HS [facility] Last Admin: 09/27/18 21:21 Dose: 40 mg Budesonide/Formoterol Fumarate (Symbicort 160/4.5mcg -) 2 puff IH BID [facility] Last Admin: 09/28/18 09:27 Dose: 2 puff Dabigatran (Pradaxa -) 150 mg PO BID [facility] Last Admin: 09/28/18 09:25 Dose: 150 mg Digoxin (Lanoxin -) 0.25 mg PO DAILY [facility] Last Admin: 09/28/18 09:23 Dose: 0.25 mg Furosemide (Lasix -) 40 mg PO BID@0600,1400 [facility] Last Admin: 09/28/18 06:10 Dose: 40 mg Guaifenesin (Diabetic Tussin Dm -) 5 ml PO Q4H PRN PRN Reason: COUGH Last Admin: 09/27/18 08:57 Dose: 5 ml Insulin Aspart (Novolog Vial Sliding Scale -) 1 vial SQ ACHS [facility]; Protocol Last Admin: 09/28/18 06:10 Dose: 4 unit Insulin Detemir (Levemir Vial) 15 units SQ BID@0700,2200 [facility] Last Admin: 09/28/18 06:13 Dose: 15 units Isosorbide Mononitrate (Imdur -) 60 mg PO DAILY [facility] Last Admin: 09/28/18 09:25 Dose: 60 mg Lisinopril (Prinivil) 2.5 mg PO DAILY [facility] Last Admin: 09/28/18 09:23 Dose: 2.5 mg Methylprednisolone Sodium Succinate (Solu-Medrol -) 40 mg IVPUSH Q8H-IV [facility] Last Admin: 09/28/18 09:24 Dose: 40 mg Metoprolol Succinate (Toprol Xl -) 50 mg PO DAILY [facility] Last Admin: 09/28/18 09:27 Dose: 50 mg Montelukast Sodium (Singulair -) 10 mg PO HS [facility] Last Admin: 09/27/18 21:21 Dose: 10 mg Tiotropium [place] (Spiriva Respimat) 2 puff IH DAILY [facility] Last Admin: 09/28/18 09:25 Dose: 2 puff - Objective Vital Signs: Vital Signs Temperature 97.9 F 09/28/18 10:00 Pulse Rate 74 09/28/18 10:00 Respiratory Rate 20 09/28/18 10:00 Blood Pressure 149/83 09/28/18 10:00 O2 Sat by Pulse Oximetry (%) 94 L 09/27/18 20:53 Constitutional: Yes: Mild Distress Eyes: Yes: WNL HENT: Yes: WNL Neck: Yes: WNL Cardiovascular: Yes: Pulse Irregular Respiratory: Yes: Cough, On Nasal O2, Rhonchi Gastrointestinal: Yes: WNL Genitourinary: Yes: WNL Musculoskeletal: Yes: Muscle Weakness Extremities: Yes: WNL Edema: No Peripheral Pulses WNL: Yes Integumentary: Yes: WNL Wound/Incision: Yes: Clean/Dry Neurological: Yes: WNL ...Motor Strength: LLE, RLE Psychiatric: Yes: WNL Labs: CBC, BMP 09/28/18 06:00 09/28/18 06:00 Problem List - Problems (1) Chest tightness Code(s): R07.89 - OTHER CHEST PAIN (2) Atrial fibrillation Code(s): I48.91 - UNSPECIFIED ATRIAL FIBRILLATION Qualifiers: Atrial fibrillation type: persistent Qualified Code(s): I48.1 - Persistent atrial fibrillation (3) CAD (coronary artery disease) Code(s): I25.10 - ATHSCL HEART DISEASE OF [place] CORONARY ARTERY W/O ANG PCTRS Qualifiers: Coronary Disease-Associated Artery/Lesion type: [place] artery [place] vs. transplanted heart: [place] heart Associated angina: without angina Qualified Code(s): I25.10 - Atherosclerotic heart disease of [place] coronary artery without angina pectoris (4) CHF exacerbation Code(s): I50.9 - HEART FAILURE, UNSPECIFIED Qualifiers: Heart failure type: unspecified Qualified Code(s): I50.9 - Heart failure, unspecified (5) COPD with acute exacerbation Code(s): J44.1 - CHRONIC OBSTRUCTIVE PULMONARY DISEASE W (ACUTE) EXACERBATION Assessment/Plan IV STEROIDS CONTINUE NEBS 02 SUPPORT DVT PROPHYLZIS OOB TO CHAIR COUGH SUPPRESSANTS
--- NOTE | 2018-09-28 18:13 | PN ---
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 CHF 2. hyponatremia 3. hypomagnesemia 4. asthma 5. a-fib 6. DM Current Medications Acetaminophen (Tylenol -) 650 mg PO Q6H PRN PRN Reason: PAIN OR FEVER Last Admin: 09/28/18 16:03 Dose: 650 mg Albuterol Sulfate (Ventolin 0.083% Nebulizer Soln -) 1 amp NEB Q4H PRN PRN Reason: SHORT OF BREATH/WHEEZING Last Admin: 09/27/18 20:25 Dose: 1 amp Atorvastatin Calcium (Lipitor -) 40 mg PO HS [facility] Last Admin: 09/27/18 21:21 Dose: 40 mg Budesonide/Formoterol Fumarate (Symbicort 160/4.5mcg -) 2 puff IH BID [facility] Last Admin: 09/28/18 09:27 Dose: 2 puff Dabigatran (Pradaxa -) 150 mg PO BID [facility] Last Admin: 09/28/18 09:25 Dose: 150 mg Digoxin (Lanoxin -) 0.25 mg PO DAILY [facility] Last Admin: 09/28/18 09:23 Dose: 0.25 mg Furosemide (Lasix -) 40 mg PO BID@0600,1400 [facility] Last Admin: 09/28/18 13:51 Dose: 40 mg Guaifenesin (Diabetic Tussin Dm -) 5 ml PO Q4H PRN PRN Reason: COUGH Last Admin: 09/27/18 08:57 Dose: 5 ml Insulin Aspart (Novolog Vial Sliding Scale -) 1 vial SQ ACHS [facility]; Protocol Last Admin: 09/28/18 17:02 Dose: 4 unit Insulin Detemir (Levemir Vial) 15 units SQ BID@0700,2200 [facility] Last Admin: 09/28/18 06:13 Dose: 15 units Isosorbide Mononitrate (Imdur -) 60 mg PO DAILY [facility] Last Admin: 09/28/18 09:25 Dose: 60 mg Lisinopril (Prinivil) 2.5 mg PO DAILY [facility] Last Admin: 09/28/18 09:23 Dose: 2.5 mg Methylprednisolone Sodium Succinate (Solu-Medrol -) 40 mg IVPUSH Q8H-IV [facility] Last Admin: 09/28/18 17:00 Dose: 40 mg Metoprolol Succinate (Toprol Xl -) 50 mg PO DAILY [facility] Last Admin: 09/28/18 09:27 Dose: 50 mg Montelukast Sodium (Singulair -) 10 mg PO [facility] Last Admin: 09/27/18 21:21 Dose: 10 mg Tiotropium [place] (Spiriva Respimat) 2 puff IH DAILY [facility] Last Admin: 09/28/18 09:25 Dose: 2 puff Last Vital Signs Temp Pulse Resp BP Pulse Ox 97.7 F 76 16 141/69 94 L 09/28/18 13:05 09/28/18 13:05 09/28/18 13:05 09/28/18 13:05 09/27/18 20:53 Lungs clear Heart reg abd soft ext no edema CBC, BMP 09/28/18 06:00 09/28/18 06:00 IMP- prerenal azotemia chf well compensated Plan- continue same rx
[2018-09-28] MEDS: MONTELUKAST NA 10 MG TABLET PO SCH (22:07)
[2018-09-28] MEDS: ATORVASTATIN CA 40 MG TABLET (FP) PO SCH (22:08)
[2018-09-29] MEDS: methylPREDNISolone NA SUCC 40 MG/1 ML VIAL IVPUSH SCH ×3 (01:17→21:31)
[2018-09-29] MEDS: INSULIN (LEVEMIR) 100 UNITS/ML UNITS SQ SCH ×2 (06:06→21:31)
[2018-09-29] MEDS: INSULIN SLIDING SCALE (NOVOLOG) 1 VIAL SQ SCH ×4 (06:06→21:32)
[2018-09-29] MEDS: FUROSEMIDE 40 MG TABLET (FP) PO SCH ×2 (06:06→13:45)
[2018-09-29] MEDS: ALBUTEROL SO4 0.083% IH SOL 2.5 MG/3 ML VIAL.NEB. NEB PRN ×3 (07:08→19:41)
[2018-09-29] MEDS ORDERED: PT OWN MED DRAWER 7, Y5N ONE ×2 (08:30→21:25)
--- NOTE | 2018-09-29 08:37 | PN ---
Progress Note, Physician - Current Medication List Current Medications: Active Medications Acetaminophen (Tylenol -) 650 mg PO Q6H PRN PRN Reason: PAIN OR FEVER Last Admin: 09/28/18 16:03 Dose: 650 mg Albuterol Sulfate (Ventolin 0.083% Nebulizer Soln -) 1 amp NEB Q4H PRN PRN Reason: SHORT OF BREATH/WHEEZING Last Admin: 09/29/18 07:08 Dose: 1 amp Atorvastatin Calcium (Lipitor -) 40 mg PO [facility] Last Admin: 09/28/18 22:08 Dose: 40 mg Budesonide/Formoterol Fumarate (Symbicort 160/4.5mcg -) 2 puff IH BID [facility] Last Admin: 09/28/18 22:08 Dose: 2 puff Dabigatran (Pradaxa -) 150 mg PO BID [facility] Last Admin: 09/28/18 22:07 Dose: 150 mg Digoxin (Lanoxin -) 0.25 mg PO DAILY [facility] Last Admin: 09/28/18 09:23 Dose: 0.25 mg Furosemide (Lasix -) 40 mg PO BID@0600,1400 [facility] Last Admin: 09/29/18 06:06 Dose: 40 mg Guaifenesin (Diabetic Tussin Dm -) 5 ml PO Q4H PRN PRN Reason: COUGH Last Admin: 09/27/18 08:57 Dose: 5 ml Insulin Aspart (Novolog Vial Sliding Scale -) 1 vial SQ [facility]; Protocol Last Admin: 09/29/18 06:06 Dose: 2 unit Insulin Detemir (Levemir Vial) 15 units SQ BID@0700,2200 [facility] Last Admin: 09/29/18 06:06 Dose: 15 units Isosorbide Mononitrate (Imdur -) 60 mg PO DAILY [facility] Last Admin: 09/28/18 09:25 Dose: 60 mg Lisinopril (Prinivil) 2.5 mg PO DAILY [facility] Last Admin: 09/28/18 09:23 Dose: 2.5 mg Metoprolol Succinate (Toprol Xl -) 50 mg PO DAILY [facility] Last Admin: 09/28/18 09:27 Dose: 50 mg Montelukast Sodium (Singulair -) 10 mg PO [facility] Last Admin: 09/28/18 22:07 Dose: 10 mg Tiotropium [place] (Spiriva Respimat) 2 puff IH DAILY [facility] Last Admin: 09/28/18 09:25 Dose: 2 puff - Objective Vital Signs: Vital Signs Temperature 98.0 F 09/29/18 05:45 Pulse Rate 69 09/29/18 05:45 Respiratory Rate 14 09/29/18 05:45 Blood Pressure 153/97 09/29/18 05:45 O2 Sat by Pulse Oximetry (%) 96 09/28/18 21:00 Cardiovascular: Yes: S1, S2 Respiratory: Yes: Diminished, On Nasal O2 Gastrointestinal: Yes: Normal Bowel Sounds, Soft. No: Tenderness Labs: CBC, BMP 09/28/18 06:00 09/28/18 06:00 Problem List - Problems (1) COPD with acute exacerbation Assessment/Plan: Continue Cardiac monitoring Solumederol taper Chest Xray report- no infiltrate, no effusion Appreciate Pulmonology consult Duonebs Peak flows O2 prn Code(s): J44.1 - CHRONIC OBSTRUCTIVE PULMONARY DISEASE W (ACUTE) EXACERBATION (2) Atrial fibrillation Assessment/Plan: EKG- reviewed [id number] Continue Pradaxa Code(s): I48.91 - UNSPECIFIED ATRIAL FIBRILLATION Qualifiers: Atrial fibrillation type: persistent Qualified Code(s): I48.1 - Persistent atrial fibrillation (3) CAD (coronary artery disease) Assessment/Plan: Continue home meds EKG- reviewed Chest xray reviewed given Asa 162 now for ACS Serial Enzymes Appreciate Cardiology consult Code(s): I25.10 - ATHSCL HEART DISEASE OF [place] CORONARY ARTERY W/O ANG PCTRS Qualifiers: Coronary Disease-Associated Artery/Lesion type: [place] artery [place] vs. transplanted heart: [place] heart Associated angina: without angina Qualified Code(s): I25.10 - Atherosclerotic heart disease of [place] coronary artery without angina pectoris (4) CHF (congestive heart failure) Assessment/Plan: BNP 780 Chest xray image- ns CHF, no effusion, no infiltrate Continue home medications O2 prn Monitor CBC, BMP Daily weights INOs Code(s): I50.9 - HEART FAILURE, UNSPECIFIED Qualifiers: Heart failure type: unspecified Heart failure chronicity: acute on chronic Qualified Code(s): I50.9 - Heart failure, unspecified Assessment/Plan ---Physical therapy-snf discussed
[2018-09-29] MEDS: ACETAMINOPHEN 325 MG TABLET (FP) PO PRN (08:44)
[2018-09-29] MEDS: DABIGATRAN ETEXILATE MESYLATE 150 MG CAPSULE PO SCH ×2 (09:01→21:31)
[2018-09-29] MEDS: ISOSORBIDE MONONITRATE 60 MG TAB.SR.24H (FP) PO SCH (09:01)
[2018-09-29] MEDS: DIGOXIN 0.25 MG TABLET (FP) PO SCH (09:01)
[2018-09-29] MEDS: BUDESONIDE/FORMETEROL FUMARATE 160/4.5 mcg INHALER IH SCH ×2 (09:02→21:30)
[2018-09-29] MEDS: TIOTROPIUM BROMIDE 2.5 MCG (SPIRIVA) RESPIMAT INHALER IH SCH (09:02)
[2018-09-29] MEDS: LISINOPRIL 5 MG TABLET (FP) PO SCH (09:02)
--- NOTE | 2018-09-29 12:11 | PN ---
Progress Note (short form) - Note Progress Note: PULMONARY Breathing slowly improving. Less cough and wheezing. Vital Signs Period Temp Pulse Resp BP Sys/Uribe Pulse Ox Last 24 Hr 97.3 F-98.0 F 61-76 14-20 135-153/69-97 95-96 Gen: mildly tachypneic with speaking Heart: RRR Lung: scattered rhonchi Abd: soft, nontender Ext: + edema CBC, BMP 09/28/18 06:00 09/28/18 06:00 Active Medications Acetaminophen (Tylenol -) 650 mg PO Q6H PRN PRN Reason: PAIN OR FEVER Last Admin: 09/29/18 08:44 Dose: 650 mg Albuterol Sulfate (Ventolin 0.083% Nebulizer Soln -) 1 amp NEB Q4H PRN PRN Reason: SHORT OF BREATH/WHEEZING Last Admin: 09/29/18 11:51 Dose: 1 amp Atorvastatin Calcium (Lipitor -) 40 mg PO HS [facility]S [facility] Last Admin: 09/28/18 22:08 Dose: 40 mg Budesonide/Formoterol Fumarate (Symbicort 160/4.5mcg -) 2 puff IH BID [facility] Last Admin: 09/29/18 09:02 Dose: 2 puff Dabigatran (Pradaxa -) 150 mg PO BID [facility]S [facility] Last Admin: 09/29/18 09:01 Dose: 150 mg Digoxin (Lanoxin -) 0.25 mg PO DAILY [facility]S [facility] Last Admin: 09/29/18 09:01 Dose: 0.25 mg Furosemide (Lasix -) 40 mg PO BID@0600,1400 [facility]S [facility] Last Admin: 09/29/18 06:06 Dose: 40 mg Guaifenesin (Diabetic Tussin Dm -) 5 ml PO Q4H PRN PRN Reason: COUGH Last Admin: 09/27/18 08:57 Dose: 5 ml Insulin Aspart (Novolog Vial Sliding Scale -) 1 vial SQ [facility] COUNTS INCLUDE 234 BEDS [facility]; Protocol Last Admin: 09/29/18 11:43 Dose: 4 unit Insulin Detemir (Levemir Vial) 15 units SQ BID@0700,2200 [facility] Last Admin: 09/29/18 06:06 Dose: 15 units Isosorbide Mononitrate (Imdur -) 60 mg PO DAILY [facility] Last Admin: 09/29/18 09:01 Dose: 60 mg Lisinopril (Prinivil) 2.5 mg PO DAILY [facility] 234 [facility]S [facility] Last Admin: 09/29/18 09:02 Dose: 2.5 mg Methylprednisolone Sodium Succinate (Solu-Medrol -) 40 mg IVPUSH BID [facility] 234 [facility]S [facility] Last Admin: 09/29/18 09:02 Dose: 40 mg Metoprolol Succinate (Toprol Xl -) 50 mg PO DAILY [facility] 234 [facility]S [facility] Last Admin: 09/29/18 09:02 Dose: 50 mg Montelukast Sodium (Singulair -) 10 mg PO HS [facility] 234 [facility]S [facility] Last Admin: 09/28/18 22:07 Dose: 10 mg Tiotropium [place] (Spiriva Respimat) 2 puff IH DAILY [facility]S [facility] Last Admin: 09/29/18 09:02 Dose: 2 puff A/P Acute COPD Exacerbation CAD s/p stents LV Systolic Dysfunction Mitral Regurgitation Pulmonary HTN Atrial Fibrillation - medrol taper - inhaled bronchodilators - O2 to keep SpO2 >90% - glucose control while on systemic steroids - rate controlled - continue anticoagulation
--- NOTE | 2018-09-29 15:13 | PN ---
Progress Note, Physician History of Present Illness: Pt seen and examined at bedside. He appears more comfortable. - Current Medication List Current Medications: Active Medications Acetaminophen (Tylenol -) 650 mg PO Q6H PRN PRN Reason: PAIN OR FEVER Last Admin: 09/29/18 08:44 Dose: 650 mg Albuterol Sulfate (Ventolin 0.083% Nebulizer Soln -) 1 amp NEB Q4H PRN PRN Reason: SHORT OF BREATH/WHEEZING Last Admin: 09/29/18 11:51 Dose: 1 amp Atorvastatin Calcium (Lipitor -) 40 mg PO HS [facility] Last Admin: 09/28/18 22:08 Dose: 40 mg Budesonide/Formoterol Fumarate (Symbicort 160/4.5mcg -) 2 puff IH BID [facility] Last Admin: 09/29/18 09:02 Dose: 2 puff Dabigatran (Pradaxa -) 150 mg PO BID [facility] Last Admin: 09/29/18 09:01 Dose: 150 mg Digoxin (Lanoxin -) 0.25 mg PO DAILY [facility] Last Admin: 09/29/18 09:01 Dose: 0.25 mg Furosemide (Lasix -) 40 mg PO BID@0600,1400 [facility] Last Admin: 09/29/18 13:45 Dose: 40 mg Guaifenesin (Diabetic Tussin Dm -) 5 ml PO Q4H PRN PRN Reason: COUGH Last Admin: 09/27/18 08:57 Dose: 5 ml Insulin Aspart (Novolog Vial Sliding Scale -) 1 vial SQ [facility]; Protocol Last Admin: 09/29/18 11:43 Dose: 4 unit Insulin Detemir (Levemir Vial) 15 units SQ BID@0700,2200 [facility] Last Admin: 09/29/18 06:06 Dose: 15 units Isosorbide Mononitrate (Imdur -) 60 mg PO DAILY [facility] Last Admin: 09/29/18 09:01 Dose: 60 mg Lisinopril (Prinivil) 2.5 mg PO DAILY [facility] Last Admin: 09/29/18 09:02 Dose: 2.5 mg Methylprednisolone Sodium Succinate (Solu-Medrol -) 40 mg IVPUSH BID [facility] Last Admin: 09/29/18 09:02 Dose: 40 mg Metoprolol Succinate (Toprol Xl -) 50 mg PO DAILY [facility] Last Admin: 09/29/18 09:02 Dose: 50 mg Montelukast Sodium (Singulair -) 10 mg PO HS [facility] Last Admin: 09/28/18 22:07 Dose: 10 mg Tiotropium [place] (Spiriva Respimat) 2 puff IH DAILY [facility] Last Admin: 09/29/18 09:02 Dose: 2 puff - Objective Vital Signs: Vital Signs Temperature 97.4 F L 09/29/18 14:00 Pulse Rate 67 09/29/18 14:00 Respiratory Rate 16 09/29/18 14:00 Blood Pressure 144/75 09/29/18 14:00 O2 Sat by Pulse Oximetry (%) 95 09/29/18 10:00 Constitutional: Yes: Calm Eyes: Yes: Conjunctiva Clear HENT: Yes: Atraumatic Cardiovascular: Yes: S1, S2 Respiratory: Yes: Wheezes Gastrointestinal: Yes: Soft Genitourinary: Yes: WNL Edema: Yes Edema: LLE: 1+, RLE: 1+ Integumentary: Yes: Venous Stasis Changes Neurological: Yes: Oriented Labs: CBC, BMP 09/28/18 06:00 09/28/18 06:00 Assessment/Plan Current Medications Generic Name Dose Route Start Last Admin Trade Name Freq PRN Reason Stop Dose Admin Acetaminophen 650 mg 09/24/18 09:08 09/29/18 08:44 Tylenol - PO 650 mg Q6H PRN Administration PAIN OR FEVER Albuterol Sulfate 1 amp 09/26/18 14:13 09/29/18 11:51 Ventolin 0.083% Nebulizer Soln - NEB 1 amp Q4H PRN Administration SHORT OF BREATH/WHEEZING Atorvastatin Calcium 40 mg 09/24/18 22:00 09/28/18 22:08 Lipitor - PO 40 mg HS [facility] Administration Budesonide/Formoterol Fumarate 2 puff 09/26/18 22:00 09/29/18 09:02 Symbicort 160/4.5mcg - IH 2 puff BID [facility] Administration Dabigatran 150 mg 09/24/18 10:00 09/29/18 09:01 Pradaxa - PO 150 mg BID [facility] Administration Digoxin 0.25 mg 09/24/18 10:00 09/29/18 09:01 Lanoxin - PO 0.25 mg DAILY [facility] Administration Furosemide 40 mg 09/26/18 06:00 09/29/18 13:45 Lasix - PO 40 mg BID@0600,1400 [facility] Administration Guaifenesin 5 ml 09/25/18 05:38 09/27/18 08:57 Diabetic Tussin Dm - PO 5 ml Q4H PRN Administration COUGH Insulin Aspart 1 vial 09/24/18 11:00 09/29/18 11:43 Novolog Vial Sliding Scale - SQ 4 unit ACHS [facility] Administration Protocol Insulin Detemir 15 units 09/24/18 22:00 09/29/18 06:06 Levemir Vial SQ 15 units BID@0700,2200 [facility] Administration Isosorbide Mononitrate 60 mg 09/24/18 10:00 09/29/18 09:01 Imdur - PO 60 mg DAILY [facility] Administration Lisinopril 2.5 mg 09/24/18 10:00 09/29/18 09:02 Prinivil PO 2.5 mg DAILY [facility] Administration Methylprednisolone Sodium Succinate 40 mg 09/29/18 10:00 09/29/18 09:02 Solu-Medrol - IVPUSH 40 mg BID [facility] Administration Metoprolol Succinate 50 mg 09/24/18 10:00 09/29/18 09:02 Toprol Xl - PO 50 mg DAILY [facility] Administration Montelukast Sodium 10 mg 09/24/18 22:00 09/28/18 22:07 Singulair - PO 10 mg HS [facility] Administration Tiotropium [place] 2 puff 09/26/18 14:15 09/29/18 09:02 Spiriva Respimat IH 2 puff DAILY [facility] Administration Impression 1. CHF 2. hyponatremia 3. hypomagnesemia 4. asthma 5. a-fib 6. DM Plan - cont lasix - corrected sodium is stable - will need better glucose control - monitor lytes - will follow
--- NOTE | 2018-09-29 18:28 | CONS ---
DATE OF CONSULTATION: 09/29/2018 HISTORY OF PRESENT ILLNESS: The patient is a 63-year-old man with past medical history of atrial fibrillation on Pradaxa, coronary artery disease status post stents, left ventricular systolic dysfunction with EF of 30% in August 2018, as well as insulin-dependent diabetes, obesity, and underlying COPD, who was admitted with chest tightness which occurred while undergoing a sleep study. Patient developed nonradiating substernal chest tightness with dizziness and subsequent swelling in both lower extremities. He presented to the emergency room on September 23, 2018, and underwent evaluation which included chest x-ray and EKG. Patient was diagnosed with congestive heart failure but with only minimal elevated BNP and chest x-ray without any pleural effusion. He was continued on home medication, and shortness of breath was thought likely to COPD exacerbation, started on Solu-Medrol. Patient notes improvement overall in his condition, and steroids apparently are being tapered. He was seen by Physical Therapy and able to ambulate 110 feet with a rolling walker, light contact guard. He has equipment at home which includes a rolling walker, wheelchair, as well as a straight cane. His most recent CBC showed elevated WBCs of 11.9, hemoglobin 13.4, and platelet count slightly low at 129,000 but stable. Patient's most recent chemistry shows sodium 133, slightly low; elevated BUN 31, creatinine 0.8. Magnesium level normal, 1.9. Potassium level normal at 4.1. On admission, he had a low sodium of 130, which fell to 128 on September 25. His troponin was normal. Albumin 2.9. Patient also complains of soreness and numbness in his lower extremities distally and some degree of low back pain. PAST MEDICAL/SURGICAL HISTORY: As above. Also history of hypertension, hyperlipidemia, in addition to the coronary artery disease, atrial fibrillation, stents, left ventricular systolic dysfunction, insulin-dependent diabetes, and obesity. He may also have a history of diabetic peripheral neuropathy. SOCIAL HISTORY: Patient has 2 large steps to enter and 2 steps to exit. He apparently lives in some sort of boarding home, and premorbidly he ambulated sometimes with a cane and sometimes with a walker. Current function as above. REVIEW OF SYSTEMS: No headache. No lightheadedness or dizziness. No blurry vision, double vision. No nausea, vomiting, difficulty swallowing, difficulty chewing. He does get some tightness in his chest at times, but none currently. He also has no complaints of any current shortness of breath, but with exertion. He also has some cough at times. Patient has some degree of back pain. No neck pain. He has discomfort in both of his shoulders with elevation. He does get numbness in his feet, but no numbness, tingling in the hands, loss of balance and swelling in the lower extremities. No skin rash. PHYSICAL EXAMINATION: General: Overweight man seen both sitting, standing, and ambulating. HEENT: He is normocephalic and atraumatic. His extraocular muscles appear full. Poor dentition. Dry mucous membranes. Neck: Supple. Extremities: He has +1 edema in both lower extremities, but no calf tenderness. He is diffusely tender, but no isolated calf tenderness. Skin: Without any rash or breakdown. Neuromuscular: He is awake, alert, and cooperative. Patient seen both sitting, standing, and ambulating. His cranial nerves II through XII appear grossly intact. He has limited range of motion and strength in the shoulders due to pain. No crepitus. Good elbow flexion, elbow extension, range of motion and strength, and fairly good tub mender strength. Normal sensation in the upper extremities. Diminished sensation below the knees to light touch, but fairly good dorsiflexion, plantarflexion, knee flexion and extension, range of motion and strength. He has hip girdle weakness bilaterally, 3+/5 in hip flexors, hip abductors, and his gait is slow, short step length without assistive device and slightly unsteady. OVERALL IMPRESSION: 1. Deficits in mobility and activities of daily living. 2. Deconditioning. 3. Chronic obstructive pulmonary disease exacerbation. 4. History of congestive heart failure, decreased left ventricular ejection fraction 30%. 5. Probable underlying diabetic peripheral neuropathy. 6. Back pain. 7. Bilateral shoulder pain with underlying rotator cuff tear. 8. Hyponatremia. 9. Hypoalbuminemia. 10. Increased body mass index. 11. Atrial fibrillation on Pradaxa. PLAN/SUGGESTION: 1. Physical therapy to continue at the bedside. 2. Out of bed to chair. 3. Patient is on Pradaxa. No further DVT prophylaxis needed. 4. Elevation and consider NANCY stockings for edema control in the lower extremities. 5. Skin precautions. Avoid heel and sacral pressure. 6. Bowel regimen. Monitor for constipation. 7. Had a conversation regarding disposition, and patient is not considering any short-term rehab. Hopefully he will be able to return to his boarding home with a walker. 8. Patient would like a Rollator. Could follow up as an outpatient. Thank you for the consultation. DERIK LOWERY M.D. [id number]
[2018-09-29] MEDS: MONTELUKAST NA 10 MG TABLET PO SCH (21:30)
[2018-09-29] MEDS: ATORVASTATIN CA 40 MG TABLET (FP) PO SCH (21:30)
[2018-09-29] MEDS ORDERED: MELATONIN 5 MG TABLETS PO ONE (21:44)
--- NOTE | 2018-09-29 23:45 | EKG ---
Test Reason : Blood Pressure : / mmHG Vent. Rate : 090 BPM Atrial Rate : 102 BPM P-R Int : 000 ms QRS Dur : 096 ms QT Int : 360 ms P-R-T Axes : 000 -03 -27 degrees QTc Int : 440 ms ATRIAL FIBRILLATION NONSPECIFIC ST AND T WAVE ABNORMALITY ABNORMAL ECG WHEN COMPARED WITH ECG OF 23-SEP-2018 21:23, NO SIGNIFICANT CHANGE WAS FOUND Confirmed by KELLEN STEVEN MD ([id number]) on 09/29/2018 11:45:30 PM Referred By: Confirmed By:KELLEN STEVEN MD
[2018-09-30] MEDS: FUROSEMIDE 40 MG TABLET (FP) PO SCH ×2 (05:30→13:36)
[2018-09-30] MEDS: INSULIN (LEVEMIR) 100 UNITS/ML UNITS SQ SCH ×2 (06:17→21:31)
[2018-09-30] MEDS: INSULIN SLIDING SCALE (NOVOLOG) 1 VIAL SQ SCH ×4 (06:17→21:32)
[2018-09-30] MEDS: ALBUTEROL SO4 0.083% IH SOL 2.5 MG/3 ML VIAL.NEB. NEB PRN ×2 (08:08→19:14)
[2018-09-30] MEDS ORDERED: PT OWN MED DRAWER 7, Y5N ONE ×2 (08:37→21:29)
[2018-09-30] MEDS: methylPREDNISolone NA SUCC 40 MG/1 ML VIAL IVPUSH SCH (09:12)
[2018-09-30] MEDS: DIGOXIN 0.25 MG TABLET (FP) PO SCH (09:12)
[2018-09-30] MEDS: LISINOPRIL 5 MG TABLET (FP) PO SCH (09:12)
[2018-09-30] MEDS: ISOSORBIDE MONONITRATE 60 MG TAB.SR.24H (FP) PO SCH (09:12)
[2018-09-30] MEDS: BUDESONIDE/FORMETEROL FUMARATE 160/4.5 mcg INHALER IH SCH ×2 (09:13→21:31)
[2018-09-30] MEDS: TIOTROPIUM BROMIDE 2.5 MCG (SPIRIVA) RESPIMAT INHALER IH SCH (09:13)
--- NOTE | 2018-09-30 09:24 | DS ---
Physical Examination Vital Signs: Vital Signs Temperature 97.9 F 09/30/18 09:00 Pulse Rate 72 09/30/18 09:12 Respiratory Rate 18 09/30/18 09:00 Blood Pressure 163/88 09/30/18 09:00 O2 Sat by Pulse Oximetry (%) 96 09/30/18 08:13 Findings/Remarks: feels better Cardiovascular: Yes: S1, S2 Respiratory: Yes: Regular, CTA Bilaterally Gastrointestinal: Yes: Normal Bowel Sounds, Soft Labs: CBC, BMP 09/28/18 06:00 09/28/18 06:00 Discharge Summary Reason For Visit: ACUTE ELECTROCARDIOGRAPHY CHANGES Current Active Problems Chest tightness (Acute) Hospital Course: - Problems (1) COPD with acute exacerbation Assessment/Plan: Continue Cardiac monitoring Solumederol taper--to po Chest Xray report- no infiltrate, no effusion Appreciate Pulmonology consult Duonebs Peak flows O2 prn Code(s): J44.1 - CHRONIC OBSTRUCTIVE PULMONARY DISEASE W (ACUTE) EXACERBATION (2) Atrial fibrillation Assessment/Plan: EKG- reviewed [id number] Continue Pradaxa Code(s): I48.91 - UNSPECIFIED ATRIAL FIBRILLATION Qualifiers: Atrial fibrillation type: persistent Qualified Code(s): I48.1 - Persistent atrial fibrillation (3) CAD (coronary artery disease) Assessment/Plan: Continue home meds EKG- reviewed Chest xray reviewed given Asa 162 now for ACS Serial Enzymes Appreciate Cardiology consult Code(s): I25.10 - ATHSCL HEART DISEASE OF [place] CORONARY ARTERY W/O ANG PCTRS Qualifiers: Coronary Disease-Associated Artery/Lesion type: [place] artery [place] vs. transplanted heart: [place] heart Associated angina: without angina Qualified Code(s): I25.10 - Atherosclerotic heart disease of [place] coronary artery without angina pectoris (4) CHF (congestive heart failure) Assessment/Plan: BNP 780 Chest xray image- ns CHF, no effusion, no infiltrate Continue home medications O2 prn Monitor CBC, BMP Daily weights INOs Code(s): I50.9 - HEART FAILURE, UNSPECIFIED Qualifiers: Heart failure type: unspecified Heart failure chronicity: acute on chronic Qualified Code(s): I50.9 - Heart failure, unspecified Assessment/Plan ---Physical therapy-snf discussed Condition: Improved - Instructions Referrals: Jessica Wooten MD [Primary Care Provider] - 2 Weeks [facility] - Home Medications Comprehensive Discharge Medication List: Ambulatory Orders Fluticasone/Salmeterol [Advair Hfa 115-21 Mcg Inhaler] 2 inh PO BID 02/07/18 Dabigatran Etexilate Mesylate [Pradaxa -] 150 mg PO BID cap 05/29/18 Digoxin [Lanoxin -] 0.25 mg PO DAILY tablet 05/29/18 Montelukast Na [Singulair -] 10 mg PO HS tablet 05/29/18 Potassium Chloride [K-Dur -] 20 meq PO DAILY tablet.er 05/29/18 Acetaminophen [Tylenol .Regular Strength -] 650 mg PO Q6H PRN tablet 09/03/18 Albuterol 2.5/Ipratropium 0.5 [Duoneb -] 1 amp NEB Q6H PRN amp 09/03/18 Atorvastatin Ca [Lipitor] 40 mg PO HS tablet 09/03/18 Hydrocortisone 0.5% Ointment [Hytone 0.5% Ointment -] 1 applic TP BID PRN tube 09/03/18 Insulin Sliding Scale [Novolog Vial Sliding Scale -] 1 vial SQ ACHS units 09/03 Isosorbide Mononitrate [Imdur -] 60 mg PO DAILY tab.sr.24h 09/03/18 Melatonin 10 mg PO HS tab 09/03/18 Metoprolol Succinate [Toprol XL -] 50 mg PO DAILY tab.sr.24h 09/03/18 predniSONE [Deltasone -] 5 mg PO DAILY tablet 09/03/18 Furosemide [Lasix -] 40 mg PO BID@0600,1400 09/24/18 Lisinopril [Prinivil] 5 mg PO DAILY 09/24/18 Nystatin Cream [Mycostatin Cream -] 1 applic TP BID 09/24/18 Acetaminophen [Tylenol .Regular Strength -] 650 mg PO Q6H PRN tablet 09/30/18 Budesonide/Formeterol Fumarate [SYMBICORT 160/4.5mcg -] 2 puff IH BID inhaler 09/30/18 Guaifenesin/D-Methorphan Hb [Diabetic Tussin Dm -] 5 ml PO Q4H PRN ml 09/30/18 Insulin (Levemir) [Levemir Vial] 15 units SQ BID@0700,2200 units 09/30/18 Tiotropium [place] [Spiriva Respimat] 2 puff IH DAILY inhaler 09/30/18 predniSONE [Deltasone -] 30 mg PO BID tablet 09/30/18
[2018-09-30] MEDS ORDERED: predniSONE 10 MG TABLET (UD) PO SCH (10:00)
[2018-09-30 11:17] LABS: HEMATOCRIT 39.7 % (35.4-49); HEMOGLOBIN 13.6 GM/dL (11.7-16.9); MCH 30.1 pg (25.7-33.7); MCHC 34.4 g/dl (32.0-35.9); MEAN CELL VOLUME 87.5 fl (80-96); MEAN PLT VOLUME 9.9 fl (7.5-11.1); PLATELET COUNT 139 K/MM3 (134-434); RBC 4.54 M/mm3 (4.00-5.60); RDW 16.6 % (11.9-15.9)
[2018-09-30] MEDS: DABIGATRAN ETEXILATE MESYLATE 150 MG CAPSULE PO SCH ×2 (11:45→21:31)
[2018-09-30] MEDS: predniSONE 20 MG, predniSONE 10 MG PO SCH ×2 (12:24→21:30)
[2018-09-30 12:34] LABS: ALBUMIN 2.8 g/dl (3.4-5.0); ALK PHOS 183 U/L (45-117); ANION GAP 11 MMOL/L (8-16); BILIRUBIN,TOTAL 0.3 mg/dL (0.2-1); BLOOD UREA NITROGEN 32 mg/dL (7-18); CALCIUM 8.1 mg/dL (8.5-10.1); CHLORIDE 95 mmol/L (98-107); CO2 27 mmol/L (21-32); POTASSIUM 3.9 mmol/L (3.5-5.1); SGOT/AST 18 U/L (15-37); SGPT/ALT 28 U/L (13-61); SODIUM 133 mmol/L (136-145); TOT PROT 6.1 g/dl (6.4-8.2)
--- NOTE | 2018-09-30 12:58 | PN ---
Progress Note, Physician History of Present Illness: pulmonary alert,feeling better,less dyspneic - Current Medication List Current Medications: Active Medications Acetaminophen (Tylenol -) 650 mg PO Q6H PRN PRN Reason: PAIN OR FEVER Last Admin: 09/29/18 08:44 Dose: 650 mg Albuterol Sulfate (Ventolin 0.083% Nebulizer Soln -) 1 amp NEB Q4H PRN PRN Reason: SHORT OF BREATH/WHEEZING Last Admin: 09/30/18 08:08 Dose: 1 amp Atorvastatin Calcium (Lipitor -) 40 mg PO [facility] Last Admin: 09/29/18 21:30 Dose: 40 mg Budesonide/Formoterol Fumarate (Symbicort 160/4.5mcg -) 2 puff IH BID [facility] Last Admin: 09/30/18 09:13 Dose: 2 puff Dabigatran (Pradaxa -) 150 mg PO BID [facility] Last Admin: 09/30/18 11:45 Dose: 150 mg Digoxin (Lanoxin -) 0.25 mg PO DAILY [facility] Last Admin: 09/30/18 09:12 Dose: 0.25 mg Furosemide (Lasix -) 40 mg PO BID@0600,1400 [facility] Last Admin: 09/30/18 05:30 Dose: 40 mg Guaifenesin (Diabetic Tussin Dm -) 5 ml PO Q4H PRN PRN Reason: COUGH Last Admin: 09/27/18 08:57 Dose: 5 ml Insulin Aspart (Novolog Vial Sliding Scale -) [address] [facility]; Protocol Last Admin: 09/30/18 12:00 Dose: 6 unit Insulin Detemir (Levemir Vial) 15 units SQ BID@0700,2200 [facility] Last Admin: 09/30/18 06:17 Dose: 15 units Isosorbide Mononitrate (Imdur -) 60 mg PO DAILY [facility] Last Admin: 09/30/18 09:12 Dose: 60 mg Lisinopril (Prinivil) 2.5 mg PO DAILY [facility] Last Admin: 09/30/18 09:12 Dose: 2.5 mg Metoprolol Succinate (Toprol Xl -) 50 mg PO DAILY [facility] Last Admin: 09/30/18 09:12 Dose: 50 mg Montelukast Sodium (Singulair -) 10 mg PO [facility] Last Admin: 09/29/18 21:30 Dose: 10 mg Prednisone 20 mg/ Prednisone (10 mg) 30 mg PO BID [facility] Last Admin: 09/30/18 12:24 Dose: Not Given Tiotropium [place] (Spiriva Respimat) 2 puff IH DAILY [facility] Last Admin: 09/30/18 09:13 Dose: 2 puff - Objective Vital Signs: Vital Signs Temperature 97.9 F 09/30/18 09:00 Pulse Rate 72 09/30/18 09:12 Respiratory Rate 18 09/30/18 09:00 Blood Pressure 163/88 09/30/18 09:00 O2 Sat by Pulse Oximetry (%) 94 L 09/30/18 10:00 Constitutional: Yes: Well Nourished, Calm Eyes: Yes: WNL HENT: Yes: WNL Neck: Yes: WNL Cardiovascular: Yes: Pulse Irregular, S1, S2 Respiratory: Yes: Rales (few wheezes,few bibasilar rales) Gastrointestinal: Yes: Normal Bowel Sounds, Soft Extremities: Yes: WNL Edema: No Labs: CBC, BMP 09/30/18 10:50 09/30/18 10:50 Problem List - Problems (1) Chest tightness Code(s): R07.89 - OTHER CHEST PAIN (2) Atrial fibrillation Code(s): I48.91 - UNSPECIFIED ATRIAL FIBRILLATION Qualifiers: Atrial fibrillation type: persistent Qualified Code(s): I48.1 - Persistent atrial fibrillation (3) CAD (coronary artery disease) Code(s): I25.10 - ATHSCL HEART DISEASE OF [place] CORONARY ARTERY W/O ANG PCTRS Qualifiers: Coronary Disease-Associated Artery/Lesion type: [place] artery [place] vs. transplanted heart: [place] heart Associated angina: without angina Qualified Code(s): I25.10 - Atherosclerotic heart disease of [place] coronary artery without angina pectoris (4) CHF (congestive heart failure) Code(s): I50.9 - HEART FAILURE, UNSPECIFIED Qualifiers: Heart failure type: unspecified Heart failure chronicity: acute on chronic Qualified Code(s): I50.9 - Heart failure, unspecified (5) COPD with acute exacerbation Code(s): J44.1 - CHRONIC OBSTRUCTIVE PULMONARY DISEASE W (ACUTE) EXACERBATION (6) Hypertension Code(s): I10 - ESSENTIAL (PRIMARY) HYPERTENSION Qualifiers: Hypertension type: essential hypertension Qualified Code(s): I10 - Essential (primary) hypertension (7) Pulmonary HTN Code(s): I27.20 - PULMONARY HYPERTENSION, UNSPECIFIED (8) Shortness of breath Code(s): R06.02 - SHORTNESS OF BREATH Assessment/Plan IMP COPD EXACERBATION IMPROVING ASHD S/P STENTS CHF AFIB LIKELY OSAS PULMONARY HTN PLAN PREDNISON INHALED BRONCHODILATORS O2 AC [address] TEJEDA Problem List - Problems (1) Chest tightness Code(s): R07.89 - OTHER CHEST PAIN (2) Atrial fibrillation Code(s): I48.91 - UNSPECIFIED ATRIAL FIBRILLATION Qualifiers: Atrial fibrillation type: persistent Qualified Code(s): I48.1 - Persistent atrial fibrillation (3) CAD (coronary artery disease) Code(s): I25.10 - ATHSCL HEART DISEASE OF [place] CORONARY ARTERY W/O ANG PCTRS Qualifiers: Coronary Disease-Associated Artery/Lesion type: [place] artery [place] vs. transplanted heart: [place] heart Associated angina: without angina Qualified Code(s): I25.10 - Atherosclerotic heart disease of [place] coronary artery without angina pectoris (4) CHF (congestive heart failure) Code(s): I50.9 - HEART FAILURE, UNSPECIFIED Qualifiers: Heart failure type: unspecified Heart failure chronicity: acute on chronic Qualified Code(s): I50.9 - Heart failure, unspecified (5) COPD with acute exacerbation Code(s): J44.1 - CHRONIC OBSTRUCTIVE PULMONARY DISEASE W (ACUTE) EXACERBATION (6) Hypertension Code(s): I10 - ESSENTIAL (PRIMARY) HYPERTENSION Qualifiers: Hypertension type: essential hypertension Qualified Code(s): I10 - Essential (primary) hypertension (7) Pulmonary HTN Code(s): I27.20 - PULMONARY HYPERTENSION, UNSPECIFIED (8) Shortness of breath Code(s): R06.02 - SHORTNESS OF BREATH
[2018-09-30 13:00] LABS: GLUCOSE,RANDOM 349 mg/dL (74-106)
--- NOTE | 2018-09-30 13:12 | PN ---
Progress Note, Physician History of Present Illness: Pt seen and examined at bedside. He is awake and alert. He feels more comfortable today. - Current Medication List Current Medications: Active Medications Acetaminophen (Tylenol -) 650 mg PO Q6H PRN PRN Reason: PAIN OR FEVER Last Admin: 09/29/18 08:44 Dose: 650 mg Albuterol Sulfate (Ventolin 0.083% Nebulizer Soln -) 1 amp NEB Q4H PRN PRN Reason: SHORT OF BREATH/WHEEZING Last Admin: 09/30/18 08:08 Dose: 1 amp Atorvastatin Calcium (Lipitor -) 40 mg PO HS [facility] Last Admin: 09/29/18 21:30 Dose: 40 mg Budesonide/Formoterol Fumarate (Symbicort 160/4.5mcg -) 2 puff IH BID [facility] Last Admin: 09/30/18 09:13 Dose: 2 puff Dabigatran (Pradaxa -) 150 mg PO BID [facility] Last Admin: 09/30/18 11:45 Dose: 150 mg Digoxin (Lanoxin -) 0.25 mg PO DAILY [facility] Last Admin: 09/30/18 09:12 Dose: 0.25 mg Furosemide (Lasix -) 40 mg PO BID@0600,1400 [facility] Last Admin: 09/30/18 05:30 Dose: 40 mg Guaifenesin (Diabetic Tussin Dm -) 5 ml PO Q4H PRN PRN Reason: COUGH Last Admin: 09/27/18 08:57 Dose: 5 ml Insulin Aspart (Novolog Vial Sliding Scale -) 1 vial SQ [facility]; Protocol Last Admin: 09/30/18 12:00 Dose: 6 unit Insulin Detemir (Levemir Vial) 15 units SQ BID@0700,2200 [facility] Last Admin: 09/30/18 06:17 Dose: 15 units Isosorbide Mononitrate (Imdur -) 60 mg PO DAILY [facility] Last Admin: 09/30/18 09:12 Dose: 60 mg Lisinopril (Prinivil) 2.5 mg PO DAILY [facility] Last Admin: 09/30/18 09:12 Dose: 2.5 mg Metoprolol Succinate (Toprol Xl -) 50 mg PO DAILY [facility] Last Admin: 09/30/18 09:12 Dose: 50 mg Montelukast Sodium (Singulair -) 10 mg PO [facility] Last Admin: 09/29/18 21:30 Dose: 10 mg Prednisone 20 mg/ Prednisone (10 mg) 30 mg PO BID [facility] Last Admin: 09/30/18 12:24 Dose: Not Given Tiotropium [place] (Spiriva Respimat) 2 puff IH DAILY [facility] Last Admin: 09/30/18 09:13 Dose: 2 puff - Objective Vital Signs: Vital Signs Temperature 97.9 F 09/30/18 09:00 Pulse Rate 72 09/30/18 09:12 Respiratory Rate 18 09/30/18 09:00 Blood Pressure 163/88 09/30/18 09:00 O2 Sat by Pulse Oximetry (%) 94 L 09/30/18 10:00 Constitutional: Yes: Calm Eyes: Yes: Conjunctiva Clear HENT: Yes: Atraumatic Neck: Yes: Supple Cardiovascular: Yes: S1, S2 Respiratory: Yes: CTA Bilaterally Gastrointestinal: Yes: Soft Musculoskeletal: Yes: WNL Edema: Yes Edema: LLE: 1+, RLE: 1+ Neurological: Yes: Oriented Psychiatric: Yes: Oriented Labs: CBC, BMP 09/30/18 10:50 09/30/18 10:50 Problem List - Problems (1) Hyponatremia Code(s): E87.1 - HYPO-OSMOLALITY AND HYPONATREMIA (2) Pulmonary HTN Code(s): I27.20 - PULMONARY HYPERTENSION, UNSPECIFIED Assessment/Plan Current Medications Generic Name Dose Route Start Last Admin Trade Name Freq PRN Reason Stop Dose Admin Acetaminophen 650 mg 09/24/18 09:08 09/29/18 08:44 Tylenol - PO 650 mg Q6H PRN Administration PAIN OR FEVER Albuterol Sulfate 1 amp 09/26/18 14:13 09/30/18 08:08 Ventolin 0.083% Nebulizer Soln - NEB 1 amp Q4H PRN Administration SHORT OF BREATH/WHEEZING Atorvastatin Calcium 40 mg 09/24/18 22:00 09/29/18 21:30 Lipitor - PO 40 mg HS [facility] Administration Budesonide/Formoterol Fumarate 2 puff 09/26/18 22:00 09/30/18 09:13 Symbicort 160/4.5mcg - IH 2 puff BID [facility] Administration Dabigatran 150 mg 09/24/18 10:00 09/30/18 11:45 Pradaxa - PO 150 mg BID [facility] Administration Digoxin 0.25 mg 09/24/18 10:00 09/30/18 09:12 Lanoxin - PO 0.25 mg DAILY [facility] Administration Furosemide 40 mg 09/26/18 06:00 09/30/18 05:30 Lasix - PO 40 mg BID@0600,1400 [facility] Administration Guaifenesin 5 ml 09/25/18 05:38 09/27/18 08:57 Diabetic Tussin Dm - PO 5 ml Q4H PRN Administration COUGH Insulin Aspart 1 vial 09/24/18 11:00 09/30/18 12:00 Novolog Vial Sliding Scale - SQ 6 unit ACHS [facility] Administration Protocol Insulin Detemir 15 units 09/24/18 22:00 09/30/18 06:17 Levemir Vial SQ 15 units BID@0700,2200 [facility] Administration Isosorbide Mononitrate 60 mg 09/24/18 10:00 09/30/18 09:12 Imdur - PO 60 mg DAILY [facility] Administration Lisinopril 2.5 mg 09/24/18 10:00 09/30/18 09:12 Prinivil PO 2.5 mg DAILY [facility] Administration Metoprolol Succinate 50 mg 09/24/18 10:00 09/30/18 09:12 Toprol Xl - PO 50 mg DAILY [facility] Administration Montelukast Sodium 10 mg 09/24/18 22:00 09/29/18 21:30 Singulair - PO 10 mg HS [facility] Administration Prednisone 20 mg/ Prednisone 30 mg 09/30/18 10:00 09/30/18 12:24 10 mg PO Not Given BID [facility] Tiotropium [place] 2 puff 09/26/18 14:15 09/30/18 09:13 Spiriva Respimat IH 2 puff DAILY [facility] Administration Impression 1. CHF 2. hyponatremia 3. hypomagnesemia 4. asthma 5. a-fib 6. DM Plan - renal function is stable - volume status is improving - will need better glucose control - monitor lytes - cont with lasix
[2018-09-30] MEDS: ACETAMINOPHEN 325 MG TABLET (FP) PO PRN (13:36)
[2018-09-30] MEDS ORDERED: MELATONIN 5 MG TABLETS PO PRN (20:18)
[2018-09-30] MEDS ORDERED: predniSONE 10 MG TABLET (UD) ONE (21:28)
[2018-09-30] MEDS ORDERED: predniSONE 20 MG TABLET (UD) ONE (21:29)
[2018-09-30] MEDS: ATORVASTATIN CA 40 MG TABLET (FP) PO SCH (21:30)
[2018-09-30] MEDS: MONTELUKAST NA 10 MG TABLET PO SCH (21:30)
[2018-10-01] MEDS: FUROSEMIDE 40 MG TABLET (FP) PO SCH ×2 (05:39→14:30)
[2018-10-01] MEDS: INSULIN SLIDING SCALE (NOVOLOG) 1 VIAL SQ SCH ×3 (06:10→16:41)
[2018-10-01] MEDS: INSULIN (LEVEMIR) 100 UNITS/ML UNITS SQ SCH (06:11)
[2018-10-01 08:46] VITALS: BP 157/77; PULSE 64; TEMP 97.1
--- NOTE | 2018-10-01 09:27 | DS ---
Physical Examination Vital Signs: Vital Signs Temperature 97.1 F L 10/01/18 08:44 Pulse Rate 64 10/01/18 08:44 Respiratory Rate 14 10/01/18 08:44 Blood Pressure 157/77 10/01/18 08:44 O2 Sat by Pulse Oximetry (%) 94 L 10/01/18 08:15 Cardiovascular: Yes: S1, S2 Respiratory: Yes: CTA Bilaterally, On Nasal O2 Gastrointestinal: Yes: Normal Bowel Sounds, Soft Labs: CBC, BMP 09/30/18 10:50 09/30/18 10:50 Discharge Summary Reason For Visit: ACUTE ELECTROCARDIOGRAPHY CHANGES Current Active Problems Chest tightness (Acute) Hospital Course: - Problems (1) COPD with acute exacerbation Assessment/Plan: Continue Cardiac monitoring Solumederol taper--to po Chest Xray report- no infiltrate, no effusion Appreciate Pulmonology consult Duonebs Peak flows O2 prn d/w dr alonzo will asses prior to dc for home needs Code(s): J44.1 - CHRONIC OBSTRUCTIVE PULMONARY DISEASE W (ACUTE) EXACERBATION (2) Atrial fibrillation Assessment/Plan: EKG- reviewed [id number] Continue Pradaxa Code(s): I48.91 - UNSPECIFIED ATRIAL FIBRILLATION Qualifiers: Atrial fibrillation type: persistent Qualified Code(s): I48.1 - Persistent atrial fibrillation (3) CAD (coronary artery disease) Assessment/Plan: Continue home meds EKG- reviewed Chest xray reviewed given Asa 162 now for ACS Serial Enzymes Appreciate Cardiology consult Code(s): I25.10 - ATHSCL HEART DISEASE OF [place] CORONARY ARTERY W/O ANG PCTRS Qualifiers: Coronary Disease-Associated Artery/Lesion type: [place] artery [place] vs. transplanted heart: [place] heart Associated angina: without angina Qualified Code(s): I25.10 - Atherosclerotic heart disease of [place] coronary artery without angina pectoris (4) CHF (congestive heart failure) Assessment/Plan: BNP 780 Chest xray image- ns CHF, no effusion, no infiltrate Continue home medications O2 prn Monitor CBC, BMP Daily weights INOs Code(s): I50.9 - HEART FAILURE, UNSPECIFIED Qualifiers: Heart failure type: unspecified Heart failure chronicity: acute on chronic Qualified Code(s): I50.9 - Heart failure, unspecified Condition: Improved - Instructions Referrals: Jessica Wooten MD [Primary Care Provider] - 2 Weeks Disposition: [facility]/HOME HEALTH CARE - Home Medications Comprehensive Discharge Medication List: Ambulatory Orders Fluticasone/Salmeterol [Advair Hfa 115-21 Mcg Inhaler] 2 inh PO BID 02/07/18 Dabigatran Etexilate Mesylate [Pradaxa -] 150 mg PO BID cap 05/29/18 Digoxin [Lanoxin -] 0.25 mg PO DAILY tablet 05/29/18 Montelukast Na [Singulair -] 10 mg PO HS tablet 05/29/18 Potassium Chloride [K-Dur -] 20 meq PO DAILY tablet.er 05/29/18 Acetaminophen [Tylenol .Regular Strength -] 650 mg PO Q6H PRN tablet 09/03/18 Albuterol 2.5/Ipratropium 0.5 [Duoneb -] 1 amp NEB Q6H PRN amp 09/03/18 Atorvastatin Ca [Lipitor] 40 mg PO HS tablet 09/03/18 Hydrocortisone 0.5% Ointment [Hytone 0.5% Ointment -] 1 applic TP BID PRN tube 09/03/18 Insulin Sliding Scale [Novolog Vial Sliding Scale -] 1 vial SQ ACHS units 09/03 Isosorbide Mononitrate [Imdur -] 60 mg PO DAILY tab.sr.24h 09/03/18 Melatonin 10 mg PO HS tab 09/03/18 Metoprolol Succinate [Toprol XL -] 50 mg PO DAILY tab.sr.24h 09/03/18 Furosemide [Lasix -] 40 mg PO BID@0600,1400 09/24/18 Lisinopril [Prinivil] 5 mg PO DAILY 09/24/18 Nystatin Cream [Mycostatin Cream -] 1 applic TP BID 09/24/18 Acetaminophen [Tylenol .Regular Strength -] 650 mg PO Q6H PRN tablet 09/30/18 Budesonide/Formeterol Fumarate [SYMBICORT 160/4.5mcg -] 2 puff IH BID inhaler 09/30/18 Guaifenesin/D-Methorphan Hb [Diabetic Tussin Dm -] 5 ml PO Q4H PRN ml 09/30/18 Insulin (Levemir) [Levemir Vial] 15 units SQ BID@0700,2200 units 09/30/18 Tiotropium [place] [Spiriva Respimat] 2 puff IH DAILY inhaler 09/30/18 predniSONE [Deltasone -] 30 mg PO BID tablet 09/30/18
[2018-10-01] MEDS ORDERED: predniSONE 10 MG TABLET (UD) ONE (09:50)
[2018-10-01] MEDS ORDERED: predniSONE 20 MG TABLET (UD) ONE (09:50)
[2018-10-01] MEDS: LISINOPRIL 5 MG TABLET (FP) PO SCH (10:13)
[2018-10-01] MEDS: predniSONE 20 MG, predniSONE 10 MG PO SCH (10:14)
[2018-10-01] MEDS: ISOSORBIDE MONONITRATE 60 MG TAB.SR.24H (FP) PO SCH (10:14)
[2018-10-01] MEDS: DABIGATRAN ETEXILATE MESYLATE 150 MG CAPSULE PO SCH (10:16)
[2018-10-01] MEDS: TIOTROPIUM BROMIDE 2.5 MCG (SPIRIVA) RESPIMAT INHALER IH SCH (10:17)
[2018-10-01] MEDS: BUDESONIDE/FORMETEROL FUMARATE 160/4.5 mcg INHALER IH SCH (10:23)
--- NOTE | 2018-10-01 12:26 | PN ---
Progress Note, Physician History of Present Illness: PULMONARY ALERT,NO DISTRESS,DYSPNEA IMPROVED - Current Medication List Current Medications: Active Medications Acetaminophen (Tylenol -) 650 mg PO Q6H PRN PRN Reason: PAIN OR FEVER Last Admin: 09/30/18 13:36 Dose: 650 mg Albuterol Sulfate (Ventolin 0.083% Nebulizer Soln -) 1 amp NEB Q4H PRN PRN Reason: SHORT OF BREATH/WHEEZING Last Admin: 09/30/18 19:14 Dose: 1 amp Atorvastatin Calcium (Lipitor -) 40 mg PO HS [facility] Last Admin: 09/30/18 21:30 Dose: 40 mg Budesonide/Formoterol Fumarate (Symbicort 160/4.5mcg -) 2 puff IH BID [facility] Last Admin: 10/01/18 10:23 Dose: 2 puff Dabigatran (Pradaxa -) 150 mg PO BID [facility] Last Admin: 10/01/18 10:16 Dose: 150 mg Digoxin (Lanoxin -) 0.25 mg PO DAILY [facility] Last Admin: 09/30/18 09:12 Dose: 0.25 mg Furosemide (Lasix -) 40 mg PO BID@0600,1400 [facility] Last Admin: 10/01/18 05:39 Dose: 40 mg Guaifenesin (Diabetic Tussin Dm -) 5 ml PO Q4H PRN PRN Reason: COUGH Last Admin: 09/27/18 08:57 Dose: 5 ml Insulin Aspart (Novolog Vial Sliding Scale -) 1 vial SQ ACHS [facility]; Protocol Last Admin: 10/01/18 11:54 Dose: 2 unit Insulin Detemir (Levemir Vial) 15 units SQ BID@0700,2200 [facility] Last Admin: 10/01/18 06:11 Dose: 15 units Isosorbide Mononitrate (Imdur -) 60 mg PO DAILY [facility] Last Admin: 10/01/18 10:14 Dose: 60 mg Lisinopril (Prinivil) 2.5 mg PO DAILY [facility] Last Admin: 10/01/18 10:13 Dose: 2.5 mg Melatonin (Melatonin) 5 mg PO HS PRN PRN Reason: INSOMNIA Last Admin: 09/30/18 22:45 Dose: 5 mg Metoprolol Succinate (Toprol Xl -) 50 mg PO DAILY [facility] Last Admin: 09/30/18 09:12 Dose: 50 mg Montelukast Sodium (Singulair -) 10 mg PO HS [facility] Last Admin: 09/30/18 21:30 Dose: 10 mg Prednisone 20 mg/ Prednisone (10 mg) 30 mg PO BID [facility] Last Admin: 10/01/18 10:14 Dose: 30 mg Tiotropium [place] (Spiriva Respimat) 2 puff IH DAILY [facility] Last Admin: 10/01/18 10:17 Dose: 2 puff - Objective Vital Signs: Vital Signs Temperature 97.1 F L 10/01/18 08:44 Pulse Rate 64 10/01/18 08:44 Respiratory Rate 14 10/01/18 08:44 Blood Pressure 157/77 10/01/18 08:44 O2 Sat by Pulse Oximetry (%) 94 L 10/01/18 08:15 Constitutional: Yes: Well Nourished, Calm Eyes: Yes: WNL HENT: Yes: WNL Neck: Yes: WNL Cardiovascular: Yes: Pulse Irregular, S1, S2 Respiratory: Yes: Diminished Gastrointestinal: Yes: Normal Bowel Sounds, Soft Extremities: Yes: WNL Edema: No Labs: CBC, BMP 09/30/18 10:50 09/30/18 10:50 Problem List - Problems (1) Chest tightness Code(s): R07.89 - OTHER CHEST PAIN (2) Atrial fibrillation Code(s): I48.91 - UNSPECIFIED ATRIAL FIBRILLATION Qualifiers: Atrial fibrillation type: persistent Qualified Code(s): I48.1 - Persistent atrial fibrillation (3) CAD (coronary artery disease) Code(s): I25.10 - ATHSCL HEART DISEASE OF [place] CORONARY ARTERY W/O ANG PCTRS Qualifiers: Coronary Disease-Associated Artery/Lesion type: [place] artery [place] vs. transplanted heart: [place] heart Associated angina: without angina Qualified Code(s): I25.10 - Atherosclerotic heart disease of [place] coronary artery without angina pectoris (4) CHF (congestive heart failure) Code(s): I50.9 - HEART FAILURE, UNSPECIFIED Qualifiers: Heart failure type: unspecified Heart failure chronicity: acute on chronic Qualified Code(s): I50.9 - Heart failure, unspecified (5) COPD with acute exacerbation Code(s): J44.1 - CHRONIC OBSTRUCTIVE PULMONARY DISEASE W (ACUTE) EXACERBATION (6) Hypertension Code(s): I10 - ESSENTIAL (PRIMARY) HYPERTENSION Qualifiers: Hypertension type: essential hypertension Qualified Code(s): I10 - Essential (primary) hypertension (7) Pulmonary HTN Code(s): I27.20 - PULMONARY HYPERTENSION, UNSPECIFIED (8) Shortness of breath Code(s): R06.02 - SHORTNESS OF BREATH Assessment/Plan IMP COPD EXACERBATION IMPROVING ASHD S/P STENTS CHF AFIB LIKELY OSAS PULMONARY HTN PLAN PREDNISONE INHALED BRONCHODILATORS O2 AC OUTPATIENT SLEEP STUDY DR TEJEDA Problem List - Problems (1) Chest tightness Code(s): R07.89 - OTHER CHEST PAIN (2) Atrial fibrillation Code(s): I48.91 - UNSPECIFIED ATRIAL FIBRILLATION Qualifiers: Atrial fibrillation type: persistent Qualified Code(s): I48.1 - Persistent atrial fibrillation (3) CAD (coronary artery disease) Code(s): I25.10 - ATHSCL HEART DISEASE OF [place] CORONARY ARTERY W/O ANG PCTRS Qualifiers: Coronary Disease-Associated Artery/Lesion type: [place] artery [place] vs. transplanted heart: [place] heart Associated angina: without angina Qualified Code(s): I25.10 - Atherosclerotic heart disease of [place] coronary artery without angina pectoris (4) CHF (congestive heart failure) Code(s): I50.9 - HEART FAILURE, UNSPECIFIED Qualifiers: Heart failure type: unspecified Heart failure chronicity: acute on chronic Qualified Code(s): I50.9 - Heart failure, unspecified (5) COPD with acute exacerbation Code(s): J44.1 - CHRONIC OBSTRUCTIVE PULMONARY DISEASE W (ACUTE) EXACERBATION (6) Hypertension Code(s): I10 - ESSENTIAL (PRIMARY) HYPERTENSION Qualifiers: Hypertension type: essential hypertension Qualified Code(s): I10 - Essential (primary) hypertension (7) Pulmonary HTN Code(s): I27.20 - PULMONARY HYPERTENSION, UNSPECIFIED (8) Shortness of breath Code(s): R06.02 - SHORTNESS OF BREATH
--- NOTE | 2018-10-01 13:57 | PN ---
Progress Note, Physician Chief Complaint: no cp asked to re-eval CHF regimen tele afib ratna, pauses < 2 seconds History of Present Illness: The patient is a 63 year old male with a PMH of cardiac non-ischemic cardiomyopathy, s/p cardiac cath showing nonobstructive CAD in 2016, HF with EF 30-35%, HTN, A.Fib. on Pradaxa, COPD, DMII, dyslipidemia, obesity, admitted to the hospital for evaluation of chest pain. He has been treated for CHF and afib. - Current Medication List Current Medications: Active Medications Acetaminophen (Tylenol -) 650 mg PO Q6H PRN PRN Reason: PAIN OR FEVER Last Admin: 09/30/18 13:36 Dose: 650 mg Albuterol Sulfate (Ventolin 0.083% Nebulizer Soln -) 1 amp NEB Q4H PRN PRN Reason: SHORT OF BREATH/WHEEZING Last Admin: 09/30/18 19:14 Dose: 1 amp Atorvastatin Calcium (Lipitor -) 40 mg PO HS [facility] Last Admin: 09/30/18 21:30 Dose: 40 mg Budesonide/Formoterol Fumarate (Symbicort 160/4.5mcg -) 2 puff IH BID [facility] Last Admin: 10/01/18 10:23 Dose: 2 puff Dabigatran (Pradaxa -) 150 mg PO BID [facility] Last Admin: 10/01/18 10:16 Dose: 150 mg Digoxin (Lanoxin -) 0.25 mg PO DAILY [facility] Last Admin: 09/30/18 09:12 Dose: 0.25 mg Furosemide (Lasix -) 40 mg PO BID@0600,1400 [facility] Last Admin: 10/01/18 05:39 Dose: 40 mg Guaifenesin (Diabetic Tussin Dm -) 5 ml PO Q4H PRN PRN Reason: COUGH Last Admin: 09/27/18 08:57 Dose: 5 ml Insulin Aspart (Novolog Vial Sliding Scale -) 1 vial SQ [facility]; Protocol Last Admin: 10/01/18 11:54 Dose: 2 unit Insulin Detemir (Levemir Vial) 15 units SQ BID@0700,2200 [facility] Last Admin: 10/01/18 06:11 Dose: 15 units Isosorbide Mononitrate (Imdur -) 60 mg PO DAILY [facility] Last Admin: 10/01/18 10:14 Dose: 60 mg Lisinopril (Prinivil) 2.5 mg PO DAILY [facility] Last Admin: 10/01/18 10:13 Dose: 2.5 mg Melatonin (Melatonin) 5 mg PO HS PRN PRN Reason: INSOMNIA Last Admin: 09/30/18 22:45 Dose: 5 mg Metoprolol Succinate (Toprol Xl -) 50 mg PO DAILY [facility] Last Admin: 09/30/18 09:12 Dose: 50 mg Montelukast Sodium (Singulair -) 10 mg PO HS [facility] Last Admin: 09/30/18 21:30 Dose: 10 mg Prednisone 20 mg/ Prednisone (10 mg) 30 mg PO BID [facility] Last Admin: 10/01/18 10:14 Dose: 30 mg Tiotropium [place] (Spiriva Respimat) 2 puff IH DAILY [facility] Last Admin: 10/01/18 10:17 Dose: 2 puff - Objective Vital Signs: Vital Signs Temperature 97.1 F L 10/01/18 08:44 Pulse Rate 64 10/01/18 08:44 Respiratory Rate 14 10/01/18 08:44 Blood Pressure 157/77 10/01/18 08:44 O2 Sat by Pulse Oximetry (%) 94 L 10/01/18 08:15 Constitutional: Yes: No Distress, Calm Eyes: Yes: Conjunctiva Clear, EOM Intact HENT: Yes: Normocephalic Neck: Yes: Trachea Midline Cardiovascular: Yes: Bradycardia, Pulse Irregular, S1, S2 Respiratory: Yes: CTA Bilaterally Gastrointestinal: Yes: Normal Bowel Sounds, Soft Breast(s): Yes: WNL Musculoskeletal: Yes: WNL Extremities: Yes: WNL Edema: Yes Edema: LLE: Trace, RLE: Trace Peripheral Pulses WNL: Yes Labs: CBC, BMP 09/30/18 10:50 09/30/18 10:50 Assessment/Plan The patient is a 63 year old male with a PMH of cardiac non-ischemic cardiomyopathy, s/p cardiac cath in 2016, HF with EF 30-35%, HTN, A.Fib. on Pradaxa, COPD, DMII, dyslipidemia, obesity, admitted to the hospital for evaluation of chest pain. Treated for afib, chf. 1. Atrial fibrillation -dc digoxin, continue metoprolol xl -continue Pradaxa 2. Chronic systolic chf -non ischemic cardiomyopathy. -chest pain is non cardiac. -CHF is compensated. -continue lasix, metoprolol and lisinopril -no need for imdur for chest pain, nonobstructive CAD on cardiac catheterization. -most likely cause of exacerbation is noncompliance with medications and diet. stable for outpatient followup.
[2018-10-01] MEDS: DIGOXIN 0.25 MG TABLET (FP) PO SCH (14:37)
== END 2018-10-01 17:06 | disposition home health service (06) | DRG 191 ==
LOC: JER 21:16 → JERBED 23:48 → J4S 09-24 16:22 → OBSVTOIN 09-26 10:12
PROVIDERS: ADMIT Internal Medicine; ATTEND Family Medicine
DX: J44.1 Chronic obstructive pulmonary disease with (acute) exacerbation (principal); I48.1 Persistent atrial fibrillation; I42.8 Other cardiomyopathies; E87.1 Hypo-osmolality and hyponatremia; I50.22 Chronic systolic (congestive) heart failure; I25.10 Atherosclerotic heart disease of native coronary artery without angina pectoris; E78.5 Hyperlipidemia, unspecified; E66.9 Obesity, unspecified; Z68.31 Body mass index [BMI] 31.0-31.9, adult; E11.9 Type 2 diabetes mellitus without complications; R07.89 Other chest pain; E83.42 Hypomagnesemia; E11.51 Type 2 diabetes mellitus with diabetic peripheral angiopathy without gangrene; E11.65 Type 2 diabetes mellitus with hyperglycemia; I27.20 Pulmonary hypertension, unspecified; G47.33 Obstructive sleep apnea (adult) (pediatric); I34.0 Nonrheumatic mitral (valve) insufficiency; I11.0 Hypertensive heart disease with heart failure; Z95.5 Presence of coronary angioplasty implant and graft; Z87.891 Personal history of nicotine dependence
CPT/HCPCS: 36415; 71045-TC-FY; 80048; 80053; 80076; 82550; 82962; 83735; 83880; 83930; 83935; 84100; 84484; 85025; 85027; 93005; 93010; 94640; 94660; 97116-GP; 97161-GP; 99285-25; G0378

== ENCOUNTER 2018-11-25 16:00 | Inpatient (IN) | payer OTHER ==
--- NOTE | 2018-11-25 16:23 | PDOC ---
History of Present Illness - General Chief Complaint: Chest Pain Stated Complaint: CHEST PAIN, SHORTNESS OF BREATH History Source: Patient Exam Limitations: No Limitations - History of Present Illness Initial Comments: 11/25/18 17:19 63 yo M with a hx of CHF (LV systolic dysfunction 30-35% 08/2018 [facility]), CAD (s/ p 2x stents, most recent 3-4 years ago), afib (on pradaxa), COPD, HTN, HLD, and DM presents to the emergency department with chest pain and SOB for the past 4 days in the setting of medication non-compliance. chest pain is described as sharp, 8/10, radiating to arms bilaterally, constant, and denies worsening with exertion. He states he ran out of his medications which includes digoxin, metoprolol, pradaxa, and lasix (80 mg BID). Per the patient, he ran out because of pharmacy error and monetary concerns. Denies home O2 use. States he was given nitro on EMS. He has been having poor appetite was associative nausea and dry heaving with diarrhea. Per the patient, he has had increased bilateral leg swelling and increasing abdominal girth with non-productive cough (had perceived flu 3 weeks ago). Denies the following: fever, chills, headache, visual changes, dysuria, hematuria, abdominal pain, hematochezia, and melena. Shx: None Social: Denies tobacco and alcohol use. Endorses marijuana use. Allergies: IV dye. States he gets anaphylaxis. Past History - Past Medical History Allergies/Adverse Reactions: Allergies Allergy/AdvReac Type Severity Reaction Status Date / Time Iodinated Contrast- Oral and AdvReac Intermediate Nausea Verified 08/29/18 14:38 IV Dye Home Medications: Ambulatory Orders Fluticasone/Salmeterol [Advair Hfa 115-21 Mcg Inhaler] 2 inh PO BID 02/07/18 Dabigatran Etexilate Mesylate [Pradaxa -] 150 mg PO BID cap 05/29/18 Digoxin [Lanoxin -] 0.25 mg PO DAILY tablet 05/29/18 Montelukast Na [Singulair -] 10 mg PO HS tablet 05/29/18 Potassium Chloride [K-Dur -] 20 meq PO DAILY tablet.er 05/29/18 Albuterol 2.5/Ipratropium 0.5 [Duoneb -] 1 amp NEB Q6H PRN amp 09/03/18 Atorvastatin Ca [Lipitor] 40 mg PO HS tablet 09/03/18 Hydrocortisone 0.5% Ointment [Hytone 0.5% Ointment -] 1 applic TP BID PRN tube 09/03/18 Insulin Sliding Scale [Novolog Vial Sliding Scale -] 1 vial SQ ACHS units 09/03 Isosorbide Mononitrate [Imdur -] 60 mg PO DAILY tab.sr.24h 09/03/18 Melatonin 10 mg PO HS tab 09/03/18 Metoprolol Succinate [Toprol XL -] 50 mg PO DAILY tab.sr.24h 09/03/18 Furosemide [Lasix -] 40 mg PO BID@0600,1400 09/24/18 Lisinopril [Prinivil] 5 mg PO DAILY 09/24/18 Nystatin Cream [Mycostatin Cream -] 1 applic TP BID 09/24/18 Acetaminophen [Tylenol .Regular Strength -] 650 mg PO Q6H PRN tablet 09/30/18 Budesonide/Formeterol Fumarate [SYMBICORT 160/4.5mcg -] 2 puff IH BID inhaler 09/30/18 Guaifenesin/D-Methorphan Hb [Diabetic Tussin Dm -] 5 ml PO Q4H PRN ml 09/30/18 Insulin (Levemir) [Levemir Vial] 15 units SQ BID@0700,2200 units 09/30/18 Tiotropium [place] [Spiriva Respimat] 2 puff IH DAILY inhaler 09/30/18 predniSONE [Deltasone -] 30 mg PO BID tablet 09/30/18 Prednisone 30 mg PO BID #100 tablet 10/01/18 Anemia: Yes Asthma: Yes Cardiac Disorders: Yes (A.fib, CAD) COPD: Yes CHF: Yes Diabetes: Yes HTN: Yes Hypercholesterolemia: Yes Psychiatric Problems: Yes (anxiety/depression) - Surgical History Cardiac Surgery: Yes (Cardiac Stent) Orthopedic Surgery: Yes - Suicide/Smoking/Psychosocial Hx Smoking History: Unknown if ever smoked Have you smoked in the past 12 months: No Number of Cigarettes Smoked Daily: 0 If you are a former smoker, when did you quit?: 2yrs Information on smoking cessation initiated: No 'Breaking Loose' booklet given: 02/07/18 Hx Alcohol Use: No Drug/Substance Use Hx: No Substance Use Type: Alcohol, Marijuana Hx Substance Use Treatment: No Review of Systems - Review of Systems Able to Perform ROS?: Yes Is the patient limited Singaporean proficient: No Constitutional: No: Chills, Diaphoresis, Fever, Weakness HEENTM: No: Recent change in vision, Ear Pain, Nose Pain, Throat Pain, Mouth Pain Respiratory: Yes: Cough, Shortness of Breath. No: SOB with Exertion, Hemoptysis Cardiac (ROS): Yes: Chest Pain, Edema. No: Lightheadedness, Palpitations, Syncope, Chest Tightness ABD/GI: Yes: Nausea, Poor Appetite, Vomiting. No: Constipated, Diarrhea, Poor Fluid Intake, Rectal Bleeding, Tarry Stools : No: Burning, Dysuria, Hematuria, Urgency Musculoskeletal: No: Back Pain, Joint Pain, Neck Pain Integumentary: Yes: Change in Color (yellow). No: Flushing, Lesions, Lumps, Pruritus, Rash Neurological: No: Headache, Numbness, Tingling, Tremors, Ataxia, Dizziness Psychiatric: No: Change in Appetite Endocrine: No: Unexplained Weight Gain Hematologic/Lymphatic: No: Anemia *Physical Exam - Vital Signs Last Vital Signs Temp Pulse Resp BP Pulse Ox 97.3 F L 122 H 20 118/98 98 11/25/18 16:17 11/25/18 16:17 11/25/18 16:17 11/25/18 16:17 11/25/18 16:17 - Physical Exam General Appearance: Yes: Nourished, Appropriately Dressed, Other (on nasal canula 2 L). No: Apparent Distress, Intoxicated HEENT: positive: EOMI, MARU, Normal Voice, Symmetrical, Pharynx Normal, Scleral Icterus (R), Scleral Icterus (L), Hearing Grossly Normal. negative: Pale Conjunctivae, Muffled/Hoarse voice, Pharyngeal Erythema, Tonsillar Exudate, Tonsillar Erythema, Nasal Congestion, Rhinorrhea, Sinus Tenderness, Excessive drooling Neck: positive: Trachea midline. negative: Tender, Lymphadenopathy (R), Lymphadenopathy (L), Tender lateral, Tender midline Respiratory/Chest: positive: Chest Tender (bilaterally), Lungs Clear, Normal Breath Sounds. negative: Respiratory Distress, Accessory Muscle Use, Crackles, Rales, Rhonchi, Stridor, Wheezing, Hyperresonant Cardiovascular: positive: S1, S2, Tachycardia, Systolic Murmur (grade 2), Irregularly Irregular Gastrointestinal/Abdominal: positive: Normal Bowel Sounds, Soft, Protuberent. negative: Tender Lymphatic: negative: Adenopathy Musculoskeletal: positive: Normal Inspection. negative: CVA Tenderness, Vertebral Tenderness Extremity: positive: Normal Capillary Refill, Normal Range of Motion, Pedal Edema, Swelling, Other (bilateral swelling and edema). negative: Normal Inspection, Tender Integumentary: positive: Normal Color, Dry, Warm, Jaundice. negative: Clammy, Diaphoresis, Moist, Hives, Petechiae, Rash, Swelling Neurologic: positive: inside phone sales II-XII NML intact, Fully Oriented, Alert, Normal Mood/ Affect, Normal Response, Motor Strength 5/5. negative: EOM Palsy, Facial Droop , Sensory Deficit Moderate Sedation - Procedure Monitoring Vital Signs: Procedure Monitoring Vital Signs Temperature 97.3 F L 11/25/18 16:17 Pulse Rate 122 H 11/25/18 16:17 Respiratory Rate 20 11/25/18 16:17 Blood Pressure 118/98 11/25/18 16:17 O2 Sat by Pulse Oximetry (%) 98 11/25/18 16:17 ED Treatment Course - LABORATORY CBC & Chemistry Diagram: 11/25/18 17:25 11/25/18 17:25 Medical Decision Making - Medical Decision Making 63 yo M with a hx of CHF (LV systolic dysfunction 30-35% 08/2018 [facility]), CAD (s/ p 2x stents, most recent 3-4 years ago), afib (on pradaxa), COPD, HTN, HLD, and DM presents to the emergency department with chest pain and SOB for the past 4 days in the setting of medication non-compliance. Initial vitals: Initial Vital Signs Temp Pulse Resp BP Pulse Ox 97.3 F L 122 H 20 118/98 98 11/25/18 16:17 11/25/18 16:17 11/25/18 16:17 11/25/18 16:17 11/25/18 16:17 work up: ddx: CHF exacerbation, acs, COPD exacerbation, PNA, URI, patient presents to the emergency department with multiple significant medical history with complaints of SOB and chest pain. the patient initially had tachycardia with afib (afib rvr) and SOB. likely in setting of pitting edema in the legs bilaterally and decreased breath sounds. the following interventions will be given: aspirin, duoneb, solu-medrol, zofran, tylenol, lasix (80 mg), and metoprolol 50 mg. Laboratory Tests 11/25/18 11/25/18 11/25/18 17:25 17:25 17:25 WBC 11.3 H RBC 4.61 Hgb 13.3 Hct 40.1 MCV 87.0 MCH 29.0 MCHC 33.3 RDW 18.4 H Plt Count 169 D MPV 10.5 Absolute Neuts (auto) 9.1 H Neutrophils % 80.7 Lymphocytes % 6.3 L D Monocytes % 12.2 H D Eosinophils % 0.6 D Basophils % 0.2 Nucleated RBC % 0 PT with INR 21.90 H INR 1.84 H PTT (Actin FS) 34.8 Sodium 128 L Potassium 4.3 Chloride 86 L Carbon Dioxide 32 Anion Gap 10 BUN 27 H Creatinine 1.1 Creat Clearance w eGFR > 60 Random Glucose 82 Calcium 8.4 L Total Bilirubin 5.5 H AST 366 H ALT 341 H Alkaline Phosphatase 287 H Creatine Kinase 108 Troponin I 0.04 B-Natriuretic Peptide 3996.1 H Total Protein 7.2 Albumin 3.0 L Lipase Digoxin 0.09 L Anti-A Titer Blood Type Antibody Screen 11/25/18 11/25/18 17:25 17:25 WBC RBC Hgb Hct MCV MCH MCHC RDW Plt Count MPV Absolute Neuts (auto) Neutrophils % Lymphocytes % Monocytes % Eosinophils % Basophils % Nucleated RBC % PT with INR INR PTT (Actin FS) Sodium Potassium Chloride Carbon Dioxide Anion Gap BUN Creatinine Creat Clearance w eGFR Random Glucose Calcium Total Bilirubin AST ALT Alkaline Phosphatase Creatine Kinase Troponin I B-Natriuretic Peptide Total Protein Albumin Lipase 188 Digoxin Anti-A Titer Cancelled Blood Type Cancelled Antibody Screen Cancelled CXR shows congestive changes compared to previous study in september 2018. Heart rate reduced down to the 80s after given home dose of metoprolol. patients labs show hyponatremia hypychloremia. Incidentally, he has a significantly increased bilirubin, ast, alt, alk phos from previous visit. Upon reassessment, the patient stated while he has not had abdominal pain, he had been having "abdominal discomfort" for the past 4-5 days. denies hx of alcohol abuse, hepatitis. denies increased pain with consumption of food. he had relief of pain with interventions. ordered a lipase add on and added CT abdomen/pelvis without contrast and RUQ ultrasound. will sign out patient. Patient was signed out to Dr. Vale. *DC/Admit/Observation/Transfer Diagnosis at time of Disposition: Chest pain Qualifiers: Chest pain type: unspecified Qualified Code(s): R07.9 - Chest pain, unspecified CHF exacerbation Qualifiers: Heart failure type: unspecified Qualified Code(s): I50.9 - Heart failure, unspecified - Referrals - Patient Instructions - Post Discharge Activity
[2018-11-25] MEDS ORDERED: ONDANSETRON 4 MG/2 ML VIAL IVPUSH ONE (17:00)
[2018-11-25] MEDS ORDERED: METOPROLOL TARTRATE 50 MG TABLET (FP) PO ONE (17:00)
[2018-11-25] MEDS ORDERED: ASPIRIN 81 MG CHEWABLE TABLETS PO ONE (17:00)
[2018-11-25] MEDS ORDERED: ALBUTEROL SO4 2.5/IPRATROPIUM 0.5 INH SOL 3 ML VIAL.NEB. NEB ONE (17:00)
[2018-11-25] MEDS ORDERED: FUROSEMIDE 40 MG/4 ML INJECTABLE VIAL IVPUSH ONE (17:00)
[2018-11-25] MEDS ORDERED: methylPREDNISolone NA SUCC 125 MG/2 ML VIAL IVPB ONE (17:00)
[2018-11-25] MEDS ORDERED: ACETAMINOPHEN 1000 MG/100 ML VIAL (NON FORMULARY) IVPB ONE (17:00)
[2018-11-25] MEDS ORDERED: ACETAMINOPHEN INJECTION 100 ML IVPB ONE (17:07)
[2018-11-25] MEDS ORDERED: ASPIRIN 81 MG CHEWABLE TABLETS ONE (17:07)
[2018-11-25] MEDS ORDERED: METOPROLOL TARTRATE 50 MG TABLET (FP) ONE (17:07)
[2018-11-25] MEDS ORDERED: ONDANSETRON 4 MG/2 ML VIAL ONE (17:08)
[2018-11-25] MEDS ORDERED: FUROSEMIDE 40 MG/4 ML INJECTABLE VIAL ONE (17:08)
[2018-11-25] MEDS ORDERED: methylPREDNISolone NA SUCC 125 MG/2 ML VIAL ONE (17:08)
--- NOTE | 2018-11-25 17:28 | PDOC ---
Attending Attestation - Resident Resident Name: IsaErick - ED Attending Attestation I have performed the following: I have examined & evaluated the patient, The case was reviewed & discussed with the resident, I agree w/resident's findings & plan, Exceptions are as noted - HPI HPI: 11/25/18 17:24 63 yo male p/w complaints of severe weakness,cough,shortness of breath and he basically been bed bound for several days. He reports having influenza three weeks ago He arrived in rapid afib - Physicial Exam PE: 11/25/18 17:29 63 yo male in rapid afib,sob,increasing LE head ncat eyes tomás neck supple lungs +Bibasilar rales cvs tachycardia abd protuberant ext +3 pitting edema neuro axox3,moving his extremities psych appropriate - Medical Decision Making 11/25/18 17:42 PMG afib on pradaxa,copd,diabetes,cad,diabetes,morbid obesity 11/25/18 21:32 imp: CHF exacerbation,hyponatremia. Negative car enzyme. Pt also has markedly elevated tbili and LFTs and imaging studies ordered pt admitted ,received IV diuretics
[2018-11-25 17:39] LABS: BASO % 0.2 % (0-2.0); EOS % 0.6 % (0-4.5); HEMATOCRIT 40.1 % (35.4-49); HEMOGLOBIN 13.3 GM/dL (11.7-16.9); LYMPH % 6.3 % (8-40); MCHC 33.3 g/dl (32.0-35.9); MEAN PLT VOLUME 10.5 fl (7.5-11.1); MONO % 12.2 % (3.8-10.2); NEUT % 80.7 % (42.8-82.8); PLATELET COUNT 169 K/MM3 (134-434); RBC 4.61 M/mm3 (4.00-5.60); RDW 18.4 % (11.9-15.9); WHITE BLOOD COUNT 11.3 K/mm3 (4.0-10.0)
[2018-11-25 18:01] LABS: INR 1.84 (0.83-1.09); PROTHROMBIN TIME (PATIENT) 21.9 SEC (9.7-13.0)
[2018-11-25 18:03] LABS: ACTIVATED PTT 34.8 SECONDS (25.2-36.5)
[2018-11-25 18:41] LABS: ALK PHOS 287 U/L (45-117); ANION GAP 10 MMOL/L (8-16); BILIRUBIN,TOTAL 5.5 mg/dL (0.2-1); BLOOD UREA NITROGEN 27 mg/dL (7-18); CALCIUM 8.4 mg/dL (8.5-10.1); CHLORIDE 86 mmol/L (98-107); CO2 32 mmol/L (21-32); CREATININE 1.1 mg/dL (0.55-1.3); GLUCOSE,RANDOM 82 mg/dL (74-106); N-TERMINAL BNP 3996.1 pg/ml (5-125); POTASSIUM 4.3 mmol/L (3.5-5.1); SGOT/AST 366 U/L (15-37); SGPT/ALT 341 U/L (13-61); SODIUM 128 mmol/L (136-145); TOT PROT 7.2 g/dl (6.4-8.2)
[2018-11-25] MEDS: INSULIN SLIDING SCALE (NOVOLOG) 1 VIAL SQ SCH (19:52)
--- NOTE | 2018-11-25 19:53 | HP ---
CHIEF COMPLAINT:Shortness of breath PCP: [facility] HISTORY OF PRESENT ILLNESS: 63 year old male with CHF, CAD, c/o chest pain and SOB for the past 4 days in the setting of medication non-compliance. Chest pain is described as sharp, 8/10 , radiating to arms bilaterally, constant, and denies worsening with exertion. He states he ran out of his medications which includes digoxin, metoprolol, pradaxa, and lasix and was not taking them. In the ER patient was found to have altered mental status. He was found to be hypoglycemic and after D50 push his mentation improved to baseline. ER course was notable for: (1) IV furosemide (2) cxr (3) Recent Travel: no PAST MEDICAL HISTORY: cardiac non-ischemic cardiomyopathy, s/p cardiac cath showing nonobstructive CAD in 2016, HF with EF 30-35%, HTN, A.Fib. on Pradaxa, COPD, DMII, dyslipidemia, obesity, PAST SURGICAL HISTORY: stent Social History: Smoking: no - quit 2 years ago Alcohol: no Drugs: no Family History: no Allergies Iodinated Contrast- Oral and IV Dye Adverse Reaction (Intermediate, Verified 14:38) Nausea HOME MEDICATIONS: Home Medications Medication Instructions Recorded Fluticasone/Salmeterol [Advair Hfa 2 inh PO BID 02/07/18 115-21 Mcg Inhaler] Dabigatran Etexilate Mesylate 150 mg PO BID cap 05/29/18 [Pradaxa -] Digoxin [Lanoxin -] 0.25 mg PO DAILY tablet 05/29/18 Montelukast Na [Singulair -] 10 mg PO HS tablet 05/29/18 Potassium Chloride [K-Dur -] 20 meq PO DAILY tablet.er 05/29/18 Albuterol 2.5/Ipratropium 0.5 1 amp NEB Q6H PRN amp 09/03/18 [Duoneb -] Atorvastatin Ca [Lipitor] 40 mg PO HS tablet 09/03/18 Hydrocortisone 0.5% Ointment 1 applic TP BID PRN tube 09/03/18 [Hytone 0.5% Ointment -] Insulin Sliding Scale [Novolog 1 vial SQ ACHS units 09/03/18 Vial Sliding Scale -] Isosorbide Mononitrate [Imdur -] 60 mg PO DAILY tab.sr.24h 09/03/18 Melatonin 10 mg PO HS tab 09/03/18 Metoprolol Succinate [Toprol XL -] 50 mg PO DAILY tab.sr.24h 09/03/18 Furosemide [Lasix -] 40 mg PO BID@0600,1400 09/24/18 Lisinopril [Prinivil] 5 mg PO DAILY 09/24/18 Nystatin Cream [Mycostatin Cream -] 1 applic TP BID 09/24/18 Acetaminophen [Tylenol .Regular 650 mg PO Q6H PRN tablet 09/30/18 Strength -] Budesonide/Formeterol Fumarate 2 puff IH BID inhaler 09/30/18 [SYMBICORT 160/4.5mcg -] Guaifenesin/D-Methorphan Hb 5 ml PO Q4H PRN ml 09/30/18 [Diabetic Tussin Dm -] Insulin (Levemir) [Levemir Vial] 15 units SQ BID@0700,2200 units 09/30/18 Tiotropium [place] [Spiriva 2 puff IH DAILY inhaler 09/30/18 Respimat] predniSONE [Deltasone -] 30 mg PO BID tablet 09/30/18 Prednisone 30 mg PO BID #100 tablet 10/01/18 REVIEW OF SYSTEMS CONSTITUTIONAL: Absent: fever, chills, diaphoresis, generalized weakness, malaise, loss of appetite, weight change HEENT: Absent: rhinorrhea, nasal congestion, throat pain, throat swelling, difficulty swallowing, mouth swelling, ear pain, eye pain, visual changes CARDIOVASCULAR: Absent: , syncope, palpitations, present - chest pain, peripheral edema, irregular heart rate, lightheadedness, RESPIRATORY: Absent: , wheezing, stridor, hemoptysis present- cough, shortness of breath, dyspnea with exertion, orthopnea GASTROINTESTINAL: Absent: abdominal pain, nausea, vomiting, diarrhea, constipation, melena, hematochezia present- abdominal distension, GENITOURINARY: Absent: dysuria, frequency, urgency, hesitancy, hematuria, flank pain, genital pain MUSCULOSKELETAL: Absent: myalgia, arthralgia, joint swelling, back pain, neck pain SKIN: Absent: rash, itching, pallor HEMATOLOGIC/IMMUNOLOGIC: Absent: easy bleeding, easy bruising, lymphadenopathy, frequent infections ENDOCRINE: Absent: unexplained weight gain, unexplained weight loss, heat intolerance, cold intolerance NEUROLOGIC: Absent: headache, focal weakness or paresthesias, dizziness, unsteady gait, seizure, mental status changes, bladder or bowel incontinence PSYCHIATRIC: Absent: anxiety, depression, suicidal or homicidal ideation, hallucinations. PHYSICAL EXAMINATION Vital Signs - 24 hr 11/25/18 11/25/18 11/25/18 16:17 17:00 17:25 Temperature 97.3 F L Pulse Rate 122 H Pulse Rate [ 120 H Right Radial] Respiratory 20 20 Rate Blood Pressure 118/98 Blood Pressure 128/90 [Left Arm] O2 Sat by Pulse 98 98 100 Oximetry (%) 11/25/18 18:53 Temperature Pulse Rate Pulse Rate [ 86 Right Radial] Respiratory 20 Rate Blood Pressure Blood Pressure 94/78 [Left Arm] O2 Sat by Pulse 100 Oximetry (%) GENERAL: Awake, alert, and fully oriented, in mild resp distress HEAD: Normal with no signs of trauma. EYES: Pupils equal, round and reactive to light, extraocular movements intact, sclera anicteric, conjunctiva clear. No lid lag. EARS, NOSE, THROAT: Ears normal, nares patent, oropharynx clear without exudates. Moist mucous membranes. NECK: Normal range of motion, supple without lymphadenopathy, JVD, or masses. LUNGS: Breath sounds equal, crackles b/l HEART: irregularly irregular ABDOMEN: Soft, nontender, not distended, normoactive bowel sounds, no guarding, no rebound, no masses. No hepatomegaly or splenomegaly. MUSCULOSKELETAL: Normal range of motion at all joints. No bony deformities or tenderness. No CVA tenderness. UPPER EXTREMITIES: 2+ pulses, warm, well-perfused. No cyanosis. No clubbing. No peripheral edema. LOWER EXTREMITIES: 2+ pedal edema up to knees NEUROLOGICAL: Cranial nerves II-XII intact. Normal speech. PSYCHIATRIC: Cooperative. Good eye contact. Appropriate mood and affect. SKIN: Warm, dry, normal turgor, no rashes or lesions noted, normal capillary refill. Laboratory Results - last 24 hr 11/25/18 11/25/18 11/25/18 17:25 17:25 17:25 WBC 11.3 H RBC 4.61 Hgb 13.3 Hct 40.1 MCV 87.0 MCH 29.0 MCHC 33.3 RDW 18.4 H Plt Count 169 D MPV 10.5 Absolute Neuts (auto) 9.1 H Neutrophils % 80.7 Lymphocytes % 6.3 L D Monocytes % 12.2 H D Eosinophils % 0.6 D Basophils % 0.2 Nucleated RBC % 0 PT with INR 21.90 H INR 1.84 H PTT (Actin FS) 34.8 Sodium 128 L Potassium 4.3 Chloride 86 L Carbon Dioxide 32 Anion Gap 10 BUN 27 H Creatinine 1.1 Creat Clearance w eGFR > 60 Random Glucose 82 Calcium 8.4 L Total Bilirubin 5.5 H AST 366 H ALT 341 H Alkaline Phosphatase 287 H Creatine Kinase 108 Troponin I 0.04 B-Natriuretic Peptide 3996.1 H Total Protein 7.2 Albumin 3.0 L Digoxin 0.09 L Anti-A Titer Blood Type Antibody Screen 11/25/18 17:25 WBC RBC Hgb Hct MCV MCH MCHC RDW Plt Count MPV Absolute Neuts (auto) Neutrophils % Lymphocytes % Monocytes % Eosinophils % Basophils % Nucleated RBC % PT with INR INR PTT (Actin FS) Sodium Potassium Chloride Carbon Dioxide Anion Gap BUN Creatinine Creat Clearance w eGFR Random Glucose Calcium Total Bilirubin AST ALT Alkaline Phosphatase Creatine Kinase Troponin I B-Natriuretic Peptide Total Protein Albumin Digoxin Anti-A Titer Cancelled Blood Type Cancelled Antibody Screen Cancelled imaging reviewed- ekg -afib, cxr with b/l pulm edema ASSESSMENT/PLAN: #CHF exacerbation #CAD #IDDM - with episode of hypoglycemia #Afib on AC- rate controlled #COPD #HTN #DLP # -admit to telemetry -lasix 40mg IV daily -i/o -daily weights -salt restriction -1L daily fluid restriction -insulin sliding scale -c/w home dose pradaxa for afib (also dvt ppx) -c/w home dose toprolol -c/w lisinopril -c/w home dose digoxin (level was low) -cardiac consult -pulm consult -abg -c/w isosorbide dinitrate -c/w tiotropium -c/w symbicort -albuterol neb prn -c/w home dose prednisone and reevaluate in am -monitor FS closely -insulin sliding scale -c/w atorvastatin -diabetic diet Visit type - Emergency Visit Emergency Visit: Yes ED Registration Date: 11/25/18 Care time: The patient presented to the Emergency Department on the above date and was hospitalized for further evaluation of their emergent condition. - New Patient This patient is new to me today: Yes Date on this admission: 11/25/18 - Critical Care Critical Care patient: No
[2018-11-25] MEDS ORDERED: ALBUTEROL SO4 2.5/IPRATROPIUM 0.5 INH SOL 3 ML VIAL.NEB. NEB PRN (20:02)
[2018-11-25] MEDS ORDERED: DEXTROSE 50%-WATER - 25 GM/50 ML VIAL IVPUSH ONE ×2 (22:04→22:05)
[2018-11-25] MEDS ORDERED: DEXTROSE 50%-WATER 25 GM/50 ML DISP.SYRIN ONE ×2 (22:05→22:09)
--- NOTE | 2018-11-25 22:06 | PDOC ---
*Physical Exam - Vital Signs Last Vital Signs Temp Pulse Resp BP Pulse Ox 97.3 F L 86 20 94/78 100 11/25/18 16:17 11/25/18 18:53 11/25/18 18:53 11/25/18 18:53 11/25/18 18:53 ED Treatment Course - LABORATORY CBC & Chemistry Diagram: 11/25/18 17:25 11/25/18 17:25 - ADDITIONAL ORDERS Additional order review: Laboratory Results 11/25/18 11/25/18 11/25/18 17:25 17:25 17:25 PT with INR INR PTT (Actin FS) Sodium 128 L Potassium 4.3 Chloride 86 L Carbon Dioxide 32 Anion Gap 10 BUN 27 H Creatinine 1.1 Creat Clearance w eGFR > 60 Random Glucose 82 Calcium 8.4 L Total Bilirubin 5.5 H AST 366 H ALT 341 H Alkaline Phosphatase 287 H Creatine Kinase 108 Troponin I 0.04 B-Natriuretic Peptide 3996.1 H Total Protein 7.2 Albumin 3.0 L Lipase 188 Digoxin 0.09 L Anti-A Titer Cancelled Blood Type Cancelled Antibody Screen Cancelled 11/25/18 17:25 PT with INR 21.90 H INR 1.84 H PTT (Actin FS) 34.8 Sodium Potassium Chloride Carbon Dioxide Anion Gap BUN Creatinine Creat Clearance w eGFR Random Glucose Calcium Total Bilirubin AST ALT Alkaline Phosphatase Creatine Kinase Troponin I B-Natriuretic Peptide Total Protein Albumin Lipase Digoxin Anti-A Titer Blood Type Antibody Screen 11/25/18 17:25 RBC 4.61 MCV 87.0 MCHC 33.3 RDW 18.4 H MPV 10.5 Neutrophils % 80.7 Lymphocytes % 6.3 L D Monocytes % 12.2 H D Eosinophils % 0.6 D Basophils % 0.2 - Medications Given in the ED: ED Medications Discontinued Medications Generic Name Dose Route Start Last Admin Trade Name Freq PRN Reason Stop Dose Admin Acetaminophen 1,000 mg 11/25/18 17:00 11/25/18 17:50 Ofirmev Injection - IVPB 11/25/18 17:01 1,000 mg ONCE ONE Administration Albuterol/Ipratropium 1 amp 11/25/18 17:00 11/25/18 17:13 Duoneb - NEB 11/25/18 17:01 1 amp ONCE ONE Administration Aspirin 324 mg 11/25/18 17:00 11/25/18 17:25 Asa - PO 11/25/18 17:01 324 mg ONCE ONE Administration Furosemide 40 mg 11/25/18 17:00 11/25/18 18:00 Lasix Injection - IVPUSH 11/25/18 17:01 40 mg ONCE ONE Administration Methylprednisolone Sodium Succinate 125 mg 11/25/18 17:00 11/25/18 18:02 Solu-Medrol - IVPB 11/25/18 17:01 125 mg ONCE ONE Administration Metoprolol Tartrate 50 mg 11/25/18 17:00 11/25/18 17:25 Lopressor - PO 11/25/18 17:01 50 mg ONCE ONE Administration Ondansetron HCl 4 mg 11/25/18 17:00 11/25/18 17:58 Zofran Injection IVPUSH 11/25/18 17:01 4 mg ONCE ONE Administration Medical Decision Making - Medical Decision Making 11/25/18 22:05 BGM=42, pt confused,stat DEXTROSE GIVEN 11/25/18 23:26 REPEAT FBA=[id number] ct scan head : no CT evidence of acute intracranial pathology *DC/Admit/Observation/Transfer Diagnosis at time of Disposition: Chest pain Qualifiers: Chest pain type: unspecified Qualified Code(s): R07.9 - Chest pain, unspecified CHF exacerbation Qualifiers: Heart failure type: unspecified Qualified Code(s): I50.9 - Heart failure, unspecified - Referrals - Patient Instructions - Post Discharge Activity
[2018-11-25] MEDS: BUDESONIDE/FORMETEROL FUMARATE 160/4.5 mcg INHALER IH SCH (22:10)
[2018-11-25] MEDS: ATORVASTATIN CA 40 MG TABLET (FP) PO SCH (22:10)
[2018-11-25] MEDS: INSULIN (LEVEMIR) 100 UNITS/ML UNITS SQ SCH (22:10)
[2018-11-25] MEDS: DABIGATRAN ETEXILATE MESYLATE 150 MG CAPSULE PO SCH (22:10)
[2018-11-25] MEDS: MONTELUKAST NA 10 MG TABLET PO SCH (22:10)
[2018-11-25 22:26] LABS: ARTERIAL BLD GAS O2 SATURATION 98.2 % (90-98.9); ARTERIAL BLOOD GAS BASE EXCESS 1.1 meq/l (-2-2); ARTERIAL BLOOD GAS PCO2 38.8 mmHg (35-45); ARTERIAL BLOOD GAS pH 7.42 (7.35-7.45); CARBOXYHEMOGLOBIN 1.5 gm% (0.5-2.0)
[2018-11-26] MEDS ORDERED: ATORVASTATIN CA 40 MG TABLET (FP) ONE (01:04)
[2018-11-26] MEDS ORDERED: INSULIN (LEVEMIR) 100 UNITS/ML UNITS SQ ONE (01:05)
[2018-11-26] MEDS: ALBUTEROL SO4 0.083% IH SOL 2.5 MG/3 ML VIAL.NEB. NEB PRN (04:24)
[2018-11-26] MEDS: INSULIN (LEVEMIR) 100 UNITS/ML UNITS SQ SCH ×2 (06:10→21:59)
[2018-11-26] MEDS: INSULIN SLIDING SCALE (NOVOLOG) 1 VIAL SQ SCH ×4 (06:10→21:58)
[2018-11-26 09:26] LABS: BASO % 0.1 % (0-2.0); HEMATOCRIT 40.7 % (35.4-49); HEMOGLOBIN 13.6 GM/dL (11.7-16.9); LYMPH % 6.1 % (8-40); MCH 29.1 pg (25.7-33.7); MCHC 33.4 g/dl (32.0-35.9); MEAN CELL VOLUME 87.3 fl (80-96); MEAN PLT VOLUME 10.3 fl (7.5-11.1); MONO % 6.8 % (3.8-10.2); PLATELET COUNT 160 K/MM3 (134-434); RBC 4.66 M/mm3 (4.00-5.60); RDW 18.8 % (11.9-15.9); WHITE BLOOD COUNT 9.6 K/mm3 (4.0-10.0)
[2018-11-26] MEDS: LISINOPRIL 5 MG TABLET (FP) PO SCH (09:30)
[2018-11-26] MEDS: predniSONE 10 MG TABLET (UD) PO SCH ×2 (09:45→21:58)
[2018-11-26] MEDS: DABIGATRAN ETEXILATE MESYLATE 150 MG CAPSULE PO SCH ×2 (09:46→21:58)
[2018-11-26] MEDS: DIGOXIN 0.25 MG TABLET (FP) PO SCH (09:46)
[2018-11-26] MEDS: ISOSORBIDE MONONITRATE 60 MG TAB.SR.24H (FP) PO SCH (09:46)
[2018-11-26] MEDS: FUROSEMIDE 40 MG/4 ML INJECTABLE VIAL IVPUSH SCH (09:47)
--- NOTE | 2018-11-26 09:52 | EKG ---
Test Reason : Blood Pressure : / mmHG Vent. Rate : 086 BPM Atrial Rate : 084 BPM P-R Int : 000 ms QRS Dur : 104 ms QT Int : 444 ms P-R-T Axes : 000 -06 156 degrees QTc Int : 531 ms ATRIAL FIBRILLATION T WAVE ABNORMALITY, CONSIDER LATERAL ISCHEMIA PROLONGED QT ABNORMAL ECG WHEN COMPARED WITH ECG OF 25-NOV-2018 16:09, NO SIGNIFICANT CHANGE WAS FOUND Confirmed by ROLY POWELL, DILAN ([id number]) on 11/26/2018 9:52:11 AM Referred By: Confirmed By:DILAN DUNHAM MD
[2018-11-26] MEDS: BUDESONIDE/FORMETEROL FUMARATE 160/4.5 mcg INHALER IH SCH ×2 (09:58→22:03)
[2018-11-26] MEDS: TIOTROPIUM BROMIDE 2.5 MCG (SPIRIVA) RESPIMAT INHALER IH SCH (09:58)
[2018-11-26] MEDS ORDERED: POTASSIUM CHLORIDE TABS 20 MEQ TABLET.ER (FP) PO SCH (10:00)
[2018-11-26 10:04] LABS: ANION GAP 13 MMOL/L (8-16); BLOOD UREA NITROGEN 42 mg/dL (7-18); CHLORIDE 88 mmol/L (98-107); CO2 27 mmol/L (21-32); CREATININE 1.7 mg/dL (0.55-1.3); GLUCOSE,RANDOM 158 mg/dL (74-106); MAGNESIUM 2.1 mg/dL (1.8-2.4); POTASSIUM 4.3 mmol/L (3.5-5.1); SODIUM 128 mmol/L (136-145)
[2018-11-26] MEDS: guaiFENesin/CODEINE 5 ML UNIT-DOSE CUPS PO PRN (11:27)
--- NOTE | 2018-11-26 11:54 | PN ---
Progress Note (short form) - Note Progress Note: Problem List - Problems (1) Chest tightness Code(s): R07.89 - OTHER CHEST PAIN (2) Atrial fibrillation Code(s): I48.91 - UNSPECIFIED ATRIAL FIBRILLATION Qualifiers: Atrial fibrillation type: persistent Qualified Code(s): I48.1 - Persistent atrial fibrillation (3) CAD (coronary artery disease) Code(s): I25.10 - ATHSCL HEART DISEASE OF [place] CORONARY ARTERY W/O ANG PCTRS Qualifiers: Coronary Disease-Associated Artery/Lesion type: [place] artery [place] vs. transplanted heart: [place] heart Associated angina: without angina Qualified Code(s): I25.10 - Atherosclerotic heart disease of [place] coronary artery without angina pectoris (4) CHF (congestive heart failure) Code(s): I50.9 - HEART FAILURE, UNSPECIFIED Qualifiers: Heart failure type: unspecified Heart failure chronicity: acute on chronic Qualified Code(s): I50.9 - Heart failure, unspecified (5) COPD with acute exacerbation Code(s): J44.1 - CHRONIC OBSTRUCTIVE PULMONARY DISEASE W (ACUTE) EXACERBATION (6) Hypertension Code(s): I10 - ESSENTIAL (PRIMARY) HYPERTENSION Qualifiers: Hypertension type: essential hypertension Qualified Code(s): I10 - Essential (primary) hypertension (7) Pulmonary HTN Code(s): I27.20 - PULMONARY HYPERTENSION, UNSPECIFIED (8) Shortness of breath Code(s): R06.02 - SHORTNESS OF BREATH Assessment/Plan IMP ACUTE ON CHRONIC CHF NON-ISCHEMIC CARDIMYOPATHY COPD EXACERBATION ASHD S/P STENT AFIB LIKELY OSAS AHI 38.1 ON SLEEP SCREEN PULMONARY HTN ELEVATED LFTS ACUTE KIDNEY INJURY NIDDM S/P HYPOGLYCEMIC EPISODE PLAN LASIX INHALED BRONCHODILATORS DAILY WT PREDNISONE O2 AC CPAP TONIGHT TREND LFTS MONITOR LYTES,BLOOD SUGARS,RENAL FUNCTION GI EVALUATION DR TEJEDA Problem List - Problems (1) Chest tightness Code(s): R07.89 - OTHER CHEST PAIN (2) Atrial fibrillation Code(s): I48.91 - UNSPECIFIED ATRIAL FIBRILLATION Qualifiers: Atrial fibrillation type: persistent Qualified Code(s): I48.1 - Persistent atrial fibrillation (3) CAD (coronary artery disease) Code(s): I25.10 - ATHSCL HEART DISEASE OF [place] CORONARY ARTERY W/O ANG PCTRS Qualifiers: Coronary Disease-Associated Artery/Lesion type: [place] artery [place] vs. transplanted heart: [place] heart Associated angina: without angina Qualified Code(s): I25.10 - Atherosclerotic heart disease of [place] coronary artery without angina pectoris (4) CHF (congestive heart failure) Code(s): I50.9 - HEART FAILURE, UNSPECIFIED Qualifiers: Heart failure type: unspecified Heart failure chronicity: acute on chronic Qualified Code(s): I50.9 - Heart failure, unspecified (5) COPD with acute exacerbation Code(s): J44.1 - CHRONIC OBSTRUCTIVE PULMONARY DISEASE W (ACUTE) EXACERBATION (6) Hypertension Code(s): I10 - ESSENTIAL (PRIMARY) HYPERTENSION Qualifiers: Hypertension type: essential hypertension Qualified Code(s): I10 - Essential (primary) hypertension (7) Pulmonary HTN Code(s): I27.20 - PULMONARY HYPERTENSION, UNSPECIFIED (8) Shortness of breath Code(s): R06.02 - SHORTNESS OF BREATH Problem List - Problems (1) Acute kidney injury Code(s): N17.9 - ACUTE KIDNEY FAILURE, UNSPECIFIED (2) Elevated LFTs Code(s): R94.5 - ABNORMAL RESULTS OF LIVER FUNCTION STUDIES (3) Acute on chronic diastolic CHF (congestive heart failure) Code(s): I50.33 - ACUTE ON CHRONIC DIASTOLIC (CONGESTIVE) HEART FAILURE
--- NOTE | 2018-11-26 12:55 | ECHO ---
Name: HENSLEYMARLENY HuertaS Exam:Adult Echocardiogram Study Date: 11/26/2018 08:37 AM Age: 63 yrs Reason For Study: CHF Height: 70 in Weight: 220 lb BSA: 2.2 m2 MMode/2D Measurements & Calculations IVSd: 0.82 cm Ao root diam: 2.5 cm LVIDd: 5.2 cm LA dimension: 3.9 cm LVIDs: 4.1 cm LVPWd: 1.1 cm EDV(Teich): 128.4 ml LAV (MOD-bp): 112.0 ml ESV(Teich): 75.0 ml Doppler Measurements & Calculations MV E max akbar: 116.0 cm/sec MR max akbar: 403.6 cm/sec MV dec time: 0.11 sec MR max P.2 mmHg TR max akbar: 155.6 cm/sec Med Peak E' Akbar: 7.1 cm/sec TR max P.8 mmHg Med E/e': 16.4 Lat Peak E' Akbar: 10.0 cm/sec Lat E/e': 11.6 PI Vmax: 236.2 cm/sec Procedure A two-dimensional transthoracic echocardiogram with color flow and Doppler was performed. Left Ventricle The left ventricle is grossly normal size. Left ventricular systolic function is severely reduced. Th ere is severe global hypokinesis of the left ventricle. Right Ventricle The right ventricle is normal in size and function. Atria The left atrium is mildly dilated. The right atrium is mildly dilated. Mitral Valve There is mild mitral valve thickening. There is no mitral valve stenosis. There is severe mitral regurgitation. Tricuspid Valve There is mild tricuspid valve thickening. There is no tricuspid stenosis. There is moderate to severe tricuspid regurgitation. Right ventricular systolic pressure is normal. Aortic Valve The aortic valve is not well visualized. No hemodynamically significant valvular aortic stenosis. No aortic regurgitation is present. Pulmonic Valve The pulmonic valve is not well visualized. Great Vessels The aortic root is normal size. Pericardium/Pleura There is no pericardial effusion. Interpretation Summary The left ventricle is grossly normal size. Left ventricular systolic function is severely reduced. There is severe global hypokinesis of the left ventricle. The left atrium is mildly dilated. The right atrium is mildly dilated. There is moderate to severe tricuspid regurgitation. Right ventricular systolic pressure is normal. There is severe mitral regurgitation. MD Guru Rojas 11/26/2018 12:54 PM
--- NOTE | 2018-11-26 13:51 | CONS ---
DATE OF CONSULTATION: DATE OF DICTATION: 11/26/2018 PULMONARY CONSULTATION REFERRING PHYSICIAN: Jessica Wooten MD Patient is a 63-year-old male known to me in previous hospitalization with extensive past medical history which includes chronic obstructive pulmonary disease, not on home oxygen therapy, atrial fibrillation on anticoagulation, ASHD, status post stent x1, hypertension, hyperlipidemia, [id number]-vyecjrpmb diabetes mellitus, congestive heart failure with ejection fraction of 30% on previous echo status post cardiac catheterization revealed nonobstructive disease, likely obstructive sleep apnea. Patient had a sleep screen on previous hospitalization which revealed AHI at 38.1 although has not gone for a formal sleep study, admitted to [facility] on November 25 secondary to generalized weakness, shortness of breath, chest pain, and cough. Patient states the past 4-6 weeks he has been feeling short of breath, wheezing, intermittent fevers, and flulike symptoms. He did not seek medical care. Over the past couple of days, started noticing increasing lower extremity edema to such a degree that it started oozing from the extremities. He also complained of chest pain, sharp in character, radiating to arms bilaterally , and also increasing dyspnea on exertion. Denies any nausea, vomiting, or diaphoresis. Patient presented to the emergency room with the above. In the ER, he was found to have altered mental status. At the time he was noted to be hypoglycemic and administered D50 with good results. He underwent a CT of the head which revealed no evidence of acute [place] pathology. Patient was noted to have elevated LFTs and have noted the conjunctivae to have to have scleral icterus. PAST MEDICAL HISTORY: Again includes congestive heart failure, chronic obstructive pulmonary disease, atrial fibrillation, COPD, nonobstructive cardiac disease status post stent, nonischemic cardiomyopathy, diabetes mellitus, hyperlipidemia, atrial fibrillation on Pradaxa, and hypertension, and obesity. SOCIAL HISTORY: Tobacco use about 2 packs per day for many years, quit 2 years ago. 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 REVIEW OF SYSTEMS: Positive orthopnea. Positive dyspnea. Positive chest pain. Positive cough, nonproductive. Positive intermittent fevers over the past month. No chills. No hemoptysis. No abdominal pain. Positive lower extremity edema. CURRENT MEDICATIONS: Include Symbicort, prednisone, Prinivil, Pradaxa, Spiriva, Robitussin AC, albuterol, Toprol, Lanoxin, NovoLog, Levemir, Lasix, Imdur, potassium. PHYSICAL EXAMINATION: General: Patient is a well-developed, well-nourished, awake, alert, currently in no acute distress. Vital Signs: He is afebrile, blood pressure is 90/60, respiratory rate is 20, and O2 saturation is 99% on room air. HEENT: Exam is normocephalic, atraumatic. Neck: Supple. Heart: Irregular irregular. S1, S2. Chest: Bibasilar crackles. Abdomen: Soft. Bowel sounds positive. Extremities: Bilateral lower extremity edema. LABORATORIES: BUN is 42, creatinine 1.7. Sodium is 128. Electrolytes: AST is 366, ALT is 341, alkaline phosphatase is 287. WBC is 9.6, hemoglobin 13.6, hematocrit 40.7, platelet count of 160,000. Blood gas 7.42 pH, PCO2 of 38, PO2 of 117, bicarbonate of 25, and saturation 98 on 2 L nasal cannula. Chest x-ray reveals mild increased markings bilaterally. CT of the abdomen reveals small amount of perihepatic fluid, bilateral flank subcutaneous emphysema, urinary bladder wall thickening. IMPRESSION: 1. Acute on chronic congestive heart failure. 2. Nonischemic cardiomyopathy. 3. Chronic obstructive pulmonary disease with exacerbation. 4. Arteriosclerotic heart disease status post stent. 5. Atrial fibrillation. 6. Pulmonary hypertension. 7. Likely obstructive sleep apnea. 8. Elevated liver function tests possible hepatic congestion. 9. Ioz-uefqxtj-xzotxdsza diabetes mellitus status post hypoglycemic episode. 10. Acute kidney injury. PLAN: Lasix. Daily weights. Inhaled bronchodilators. Prednisone. Supplemental O2. Continue anticoagulation. Try CPAP tonight. Trend LFTs. Obtain hepatic profile. Consider GI evaluation. Daily weights. Formal sleep studies outpatient. Monitor electrolytes, blood sugars, renal function. RADHA TEJEDA M.D. MARIELA/[id number] MTDD
[2018-11-26] MEDS: ACETAMINOPHEN 325 MG TABLET (FP) PO PRN ×2 (14:15→22:01)
--- NOTE | 2018-11-26 15:56 | CON.CARD ---
Consult Consult Specialty:: Cardiology - History of Present Illness Chief Complaint: CHF History of Present Illness: This is a 63 year old male with a PMH of CHF with known low EF 30-35% 08/2018. CAD s/p 2x stents, most recent 3-4 years ago, afib (on pradaxa), COPD, HTN, HLD , and DM. He presents now with a CHF exacerbation with massive weeping edema. Medication non adherence and dietary indiscretion noted. No chest pain but increasing MICHEL. - Past Medical History Cardio/Vascular: Yes: AFIB, CAD, CHF, HTN Pulmonary: Yes: COPD Infectious Disease: Yes: Other (pneumonia and the flu). No: Tuberculosis Endocrine: Yes: Diabetes Mellitus - Past Surgical History Past Surgical History: Yes: Stent - Alcohol/Substance Use Hx Alcohol Use: No History of Substance Use: reports: None - Smoking History Smoking history: Former smoker Have you smoked in the past 12 months: No Aproximately how many cigarettes per day: 0 If you are a former smoker, when did you quit?: 2yrs - Social History ADL: Independent (ambulates with cane) History of Recent Travel: No Home Medications - Allergies Allergies/Adverse Reactions: Allergies Allergy/AdvReac Type Severity Reaction Status Date / Time Iodinated Contrast- Oral and AdvReac Intermediate Nausea Verified 08/29/18 14:38 IV Dye - Home Medications Home Medications: Ambulatory Orders Fluticasone/Salmeterol [Advair Hfa 115-21 Mcg Inhaler] 2 inh PO BID 02/07/18 Dabigatran Etexilate Mesylate [Pradaxa -] 150 mg PO BID cap 05/29/18 Digoxin [Lanoxin -] 0.25 mg PO DAILY tablet 05/29/18 Montelukast Na [Singulair -] 10 mg PO HS tablet 05/29/18 Potassium Chloride [K-Dur -] 20 meq PO DAILY tablet.er 05/29/18 Albuterol 2.5/Ipratropium 0.5 [Duoneb -] 1 amp NEB Q6H PRN amp 09/03/18 Atorvastatin Ca [Lipitor] 40 mg PO HS tablet 09/03/18 Hydrocortisone 0.5% Ointment [Hytone 0.5% Ointment -] 1 applic TP BID PRN tube 09/03/18 Insulin Sliding Scale [Novolog Vial Sliding Scale -] 1 vial SQ ACHS units 09/03 Isosorbide Mononitrate [Imdur -] 60 mg PO DAILY tab.sr.24h 09/03/18 Melatonin 10 mg PO HS tab 09/03/18 Metoprolol Succinate [Toprol XL -] 50 mg PO DAILY tab.sr.24h 09/03/18 Furosemide [Lasix -] 40 mg PO BID@0600,1400 09/24/18 Lisinopril [Prinivil] 5 mg PO DAILY 09/24/18 Nystatin Cream [Mycostatin Cream -] 1 applic TP BID 09/24/18 Acetaminophen [Tylenol .Regular Strength -] 650 mg PO Q6H PRN tablet 09/30/18 Budesonide/Formeterol Fumarate [SYMBICORT 160/4.5mcg -] 2 puff IH BID inhaler 09/30/18 Guaifenesin/D-Methorphan Hb [Diabetic Tussin Dm -] 5 ml PO Q4H PRN ml 09/30/18 Insulin (Levemir) [Levemir Vial] 15 units SQ BID@0700,2200 units 09/30/18 Tiotropium [place] [Spiriva Respimat] 2 puff IH DAILY inhaler 09/30/18 predniSONE [Deltasone -] 30 mg PO BID tablet 09/30/18 Prednisone 30 mg PO BID #100 tablet 10/01/18 Family Disease History - Family Disease History Family Disease History: Respiratory: Mother (Asthma, age 35), Other: Father (Alcoholic, ) Vital Signs: Vital Signs Temperature 97.3 F L 11/26/18 14:00 Pulse Rate 78 11/26/18 14:00 Respiratory Rate 20 11/26/18 14:00 Blood Pressure 110/62 11/26/18 14:00 O2 Sat by Pulse Oximetry (%) 99 11/26/18 09:00 Constitutional: Yes: Mild Distress HENT: Yes: WNL Respiratory: No: CTA Bilaterally (Bilateral crackles 1/3 up) Gastrointestinal: Yes: Normal Bowel Sounds, Soft Cardiovascular: Yes: Pulse Irregular Heart Sounds: Yes: S1, S2 (No MRHG) Edema: LLE: 4+, RLE: 4+ Neurological: Yes: Alert, Oriented - Other Data Labs, Other Data: CBC, BMP 11/26/18 08:48 11/26/18 08:48 INR, PTT INR 1.84 (0.83-1.09) H 11/25/18 17:25 Troponin, BNP 11/25/18 11/26/18 17:25 08:48 Troponin I 0.04 0.03 B-Natriuretic Peptide 3996.1 H Troponin, BNP 11/25/18 11/26/18 17:25 08:48 Troponin I 0.04 0.03 B-Natriuretic Peptide 3996.1 H Assessment/Plan 63 year old male with a PMH of CHF with known low EF 30-35% 08/2018. CAD s/p 2x stents, most recent 3-4 years ago, afib (on pradaxa), COPD, HTN, HLD, and DM. He presents now with a CHF exacerbation with massive weeping edema. Medication non adherence and dietary indiscretion noted. No chest pain but increasing MICHEL. CHF Acute on chronic systolic Echo today with severe LV function and severe MR Hypervolemic hyponatremia noted Would give Lasix 60 mg IVSS BID Daily I's/O's/Wt's/Lytes Free water restriction given Na+ of 128 Cr/ 1.7, would consider renal consultation Hold Lisinopril for now AFIB Continue Pradaxa Rate control with DIG and metop Obtain dig level
--- NOTE | 2018-11-26 17:08 | PN ---
Progress Note, Physician Chief Complaint: PATIENT IN BED C/O COUGH DYSPNEA WITH LEG EDEMA WEEPING FLUID NO FEVER NO CHILLS - Current Medication List Current Medications: Active Medications Acetaminophen (Tylenol -) 650 mg PO Q8H PRN PRN Reason: PAIN/FEVER Last Admin: 11/26/18 14:15 Dose: 650 mg Albuterol Sulfate (Ventolin 0.083% Nebulizer Soln -) 1 amp NEB Q8H PRN PRN Reason: SHORT OF BREATH/WHEEZING Last Admin: 11/26/18 04:24 Dose: 1 amp Atorvastatin Calcium (Lipitor -) 40 mg PO [facility] Last Admin: 11/25/18 22:10 Dose: 40 mg Budesonide/Formoterol Fumarate (Symbicort 160/4.5mcg -) 2 puff IH BID [facility] Last Admin: 11/26/18 09:58 Dose: 2 puff Dabigatran (Pradaxa -) 150 mg PO BID [facility] Last Admin: 11/26/18 09:46 Dose: 150 mg Digoxin (Lanoxin -) 0.25 mg PO DAILY [facility] Last Admin: 11/26/18 09:46 Dose: 0.25 mg Furosemide (Lasix Injection -) 40 mg IVPUSH DAILY [facility] Last Admin: 11/26/18 09:47 Dose: 40 mg Guaifenesin/Codeine Phosphate (Robitussin Ac -) 5 ml PO TID PRN PRN Reason: COUGH Last Admin: 11/26/18 11:27 Dose: 5 ml Insulin Aspart (Novolog Vial Sliding Scale -) 1 vial SQ [facility]; Protocol Last Admin: 11/26/18 12:30 Dose: Not Given Insulin Detemir (Levemir Vial) 15 units SQ BID@0700,2200 [facility] Last Admin: 11/26/18 06:10 Dose: Not Given Isosorbide Mononitrate (Imdur -) 60 mg PO DAILY [facility] Last Admin: 11/26/18 09:46 Dose: 60 mg Lisinopril (Prinivil) 5 mg PO DAILY [facility] Last Admin: 11/26/18 09:30 Dose: Not Given Metoprolol Succinate (Toprol Xl -) 50 mg PO DAILY [facility] Last Admin: 11/26/18 09:30 Dose: Not Given Montelukast Sodium (Singulair -) 10 mg PO [facility] Last Admin: 11/25/18 22:10 Dose: 10 mg Potassium Chloride (Potassium Chloride Oral Liquid) 20 meq PO BID [facility] Prednisone (Deltasone -) 30 mg PO BID [facility] Last Admin: 11/26/18 09:45 Dose: 30 mg Tiotropium [place] (Spiriva Respimat) 2 puff IH DAILY [facility] Last Admin: 11/26/18 09:58 Dose: 2 puff - Objective Vital Signs: Vital Signs Temperature 97.3 F L 11/26/18 14:00 Pulse Rate 78 11/26/18 14:00 Respiratory Rate 20 11/26/18 14:00 Blood Pressure 110/62 11/26/18 14:00 O2 Sat by Pulse Oximetry (%) 99 11/26/18 09:00 Constitutional: Yes: Mild Distress Eyes: Yes: Sclera Icterus, Other (JA) HENT: Yes: WNL Neck: Yes: WNL Cardiovascular: Yes: Regular Rate and Rhythm, Murmur Respiratory: Yes: Diminished, On Nasal O2, SOB Gastrointestinal: Yes: Abdomen, Obese Genitourinary: Yes: WNL Musculoskeletal: Yes: Joint Swelling, Muscle Weakness Extremities: Yes: Erythema Edema: Yes Edema: LLE: 2+, RLE: 2+ Peripheral Pulses WNL: Yes Integumentary: Yes: Erythema, Skin Tear, Venous Stasis Changes Wound/Incision: Yes: Open to air Neurological: Yes: WNL ...Motor Strength: WNL Psychiatric: Yes: Other Labs: CBC, BMP 11/26/18 08:48 11/26/18 08:48 INR, PTT INR 1.84 (0.83-1.09) H 11/25/18 17:25 Problem List - Problems (1) Acute kidney injury Code(s): N17.9 - ACUTE KIDNEY FAILURE, UNSPECIFIED (2) Acute on chronic diastolic CHF (congestive heart failure) Code(s): I50.33 - ACUTE ON CHRONIC DIASTOLIC (CONGESTIVE) HEART FAILURE (3) CHF exacerbation Code(s): I50.9 - HEART FAILURE, UNSPECIFIED Qualifiers: Heart failure type: unspecified Qualified Code(s): I50.9 - Heart failure, unspecified (4) Elevated LFTs Code(s): R94.5 - ABNORMAL RESULTS OF LIVER FUNCTION STUDIES (5) Atrial fibrillation Code(s): I48.91 - UNSPECIFIED ATRIAL FIBRILLATION Qualifiers: Atrial fibrillation type: persistent Qualified Code(s): I48.1 - Persistent atrial fibrillation (6) CAD (coronary artery disease) Code(s): I25.10 - ATHSCL HEART DISEASE OF [place] CORONARY ARTERY W/O ANG PCTRS Qualifiers: Coronary Disease-Associated Artery/Lesion type: [place] artery [place] vs. transplanted heart: tribal heart Associated angina: without angina Qualified Code(s): I25.10 - Atherosclerotic heart disease of [place] coronary artery without angina pectoris (7) CHF (congestive heart failure) Code(s): I50.9 - HEART FAILURE, UNSPECIFIED Qualifiers: Heart failure type: unspecified Heart failure chronicity: acute on chronic Qualified Code(s): I50.9 - Heart failure, unspecified (8) COPD with acute exacerbation Code(s): J44.1 - CHRONIC OBSTRUCTIVE PULMONARY DISEASE W (ACUTE) EXACERBATION (9) Cellulitis Code(s): L03.90 - CELLULITIS, UNSPECIFIED (10) Electrolyte abnormality Code(s): E87.8 - OTH DISORDERS OF ELECTROLYTE AND FLUID BALANCE, NEC (11) Pulmonary HTN Code(s): I27.20 - PULMONARY HYPERTENSION, UNSPECIFIED (12) Shortness of breath Code(s): R06.02 - SHORTNESS OF BREATH (13) Stasis dermatitis of both legs Code(s): I87.2 - VENOUS INSUFFICIENCY (CHRONIC) (PERIPHERAL) Assessment/Plan IV LASIX CARDIO/PULM EVAL CHRONIC CHF WITH ACUTE EXACERBATION OOB TO CHAIR VASC EVAL STASIS DERMATITIS WITH WEEPING EDEMA NEEDS NUTRITION EVAL TO PREVENT CHF EXACERBATIONS STRICT LOW SALT DIET ADA LOW FAT WITH WATER RESTRICTIONS PATIENT HAS BEEN NON-COMPLIANT AND INADHERENT TO MEDICAL THERAPY AND DIET. I WILL CALL FOR NUTRITION CONSULT AND MONTHLY OUTPATIENT F/U TO ASSIST COLTON WITH HIS ILLNESS.
[2018-11-26] MEDS: POTASSIUM CHLORIDE ORAL LIQUID 20 MEQ/15 ML PO SCH (21:58)
[2018-11-26] MEDS: MONTELUKAST NA 10 MG TABLET PO SCH (21:58)
[2018-11-26] MEDS: ATORVASTATIN CA 40 MG TABLET (FP) PO SCH (21:58)
[2018-11-27] MEDS: INSULIN SLIDING SCALE (NOVOLOG) 1 VIAL SQ SCH ×4 (06:00→22:40)
[2018-11-27] MEDS: INSULIN (LEVEMIR) 100 UNITS/ML UNITS SQ SCH ×2 (06:03→22:39)
[2018-11-27] MEDS: guaiFENesin/CODEINE 5 ML UNIT-DOSE CUPS PO PRN ×2 (06:03→17:52)
[2018-11-27] MEDS ORDERED: PT OWN MED DRAWER 7, Y5N ONE (09:53)
[2018-11-27] MEDS: LISINOPRIL 5 MG TABLET (FP) PO SCH (10:11)
[2018-11-27] MEDS: POTASSIUM CHLORIDE ORAL LIQUID 20 MEQ/15 ML PO SCH (10:11)
[2018-11-27] MEDS: DIGOXIN 0.25 MG TABLET (FP) PO SCH (10:11)
[2018-11-27] MEDS: predniSONE 10 MG TABLET (UD) PO SCH (10:11)
[2018-11-27] MEDS: DABIGATRAN ETEXILATE MESYLATE 150 MG CAPSULE PO SCH ×2 (10:11→22:40)
[2018-11-27] MEDS: FUROSEMIDE 40 MG/4 ML INJECTABLE VIAL IVPUSH SCH (10:11)
[2018-11-27] MEDS: ISOSORBIDE MONONITRATE 60 MG TAB.SR.24H (FP) PO SCH (10:11)
[2018-11-27] MEDS: BUDESONIDE/FORMETEROL FUMARATE 160/4.5 mcg INHALER IH SCH ×2 (10:13→22:47)
[2018-11-27] MEDS: TIOTROPIUM BROMIDE 2.5 MCG (SPIRIVA) RESPIMAT INHALER IH SCH (10:13)
--- NOTE | 2018-11-27 11:52 | PN ---
Progress Note, Physician Chief Complaint: AWAKE ALERT FEELING BETTER - Current Medication List Current Medications: Active Medications Acetaminophen (Tylenol -) 650 mg PO Q8H PRN PRN Reason: PAIN/FEVER Last Admin: 11/26/18 22:01 Dose: 650 mg Albuterol Sulfate (Ventolin 0.083% Nebulizer Soln -) 1 amp NEB Q8H PRN PRN Reason: SHORT OF BREATH/WHEEZING Last Admin: 11/26/18 04:24 Dose: 1 amp Atorvastatin Calcium (Lipitor -) 40 mg PO HS [facility] Last Admin: 11/26/18 21:58 Dose: 40 mg Budesonide/Formoterol Fumarate (Symbicort 160/4.5mcg -) 2 puff IH BID [facility] Last Admin: 11/27/18 10:13 Dose: 2 puff Dabigatran (Pradaxa -) 150 mg PO BID [facility] Last Admin: 11/27/18 10:11 Dose: 150 mg Digoxin (Lanoxin -) 0.25 mg PO DAILY [facility] Last Admin: 11/27/18 10:11 Dose: 0.25 mg Furosemide (Lasix Injection -) 40 mg IVPUSH DAILY [facility] Last Admin: 11/27/18 10:11 Dose: 40 mg Guaifenesin/Codeine Phosphate (Robitussin Ac -) 5 ml PO TID PRN PRN Reason: COUGH Last Admin: 11/27/18 06:03 Dose: 5 ml Insulin Aspart (Novolog Vial Sliding Scale -) 1 vial SQ [facility]; Protocol Last Admin: 11/27/18 06:00 Dose: Not Given Insulin Detemir (Levemir Vial) 15 units SQ BID@0700,2200 [facility] Last Admin: 11/27/18 06:03 Dose: 15 unit Isosorbide Mononitrate (Imdur -) 60 mg PO DAILY [facility] Last Admin: 11/27/18 10:11 Dose: 60 mg Lisinopril (Prinivil) 5 mg PO DAILY [facility] Last Admin: 11/27/18 10:11 Dose: 5 mg Metoprolol Succinate (Toprol Xl -) 50 mg PO DAILY [facility] Last Admin: 11/27/18 10:11 Dose: 50 mg Montelukast Sodium (Singulair -) 10 mg PO HS [facility] Last Admin: 11/26/18 21:58 Dose: 10 mg Potassium Chloride (Potassium Chloride Oral Liquid) 20 meq PO BID [facility] Last Admin: 11/27/18 10:11 Dose: 20 meq Prednisone (Deltasone -) 30 mg PO BID [facility] Last Admin: 11/27/18 10:11 Dose: 30 mg Tiotropium [place] (Spiriva Respimat) 2 puff IH DAILY [facility] Last Admin: 11/27/18 10:13 Dose: 2 puff - Objective Vital Signs: Vital Signs Temperature 98.7 F 11/27/18 10:00 Pulse Rate 98 H 11/27/18 10:11 Respiratory Rate 20 11/27/18 10:00 Blood Pressure 146/86 11/27/18 10:00 O2 Sat by Pulse Oximetry (%) 97 11/26/18 20:13 Constitutional: Yes: Mild Distress Cardiovascular: Yes: Pulse Irregular Respiratory: Yes: Cough, On Nasal O2 Genitourinary: Yes: WNL Musculoskeletal: Yes: Back Pain Edema: Yes Edema: LLE: 1+, RLE: 1+ Neurological: Yes: Pre-Existing Deficit Labs: CBC, BMP 11/26/18 08:48 11/26/18 08:48 INR, PTT INR 1.84 (0.83-1.09) H 11/25/18 17:25 Problem List - Problems (1) Acute kidney injury Code(s): N17.9 - ACUTE KIDNEY FAILURE, UNSPECIFIED (2) Acute on chronic diastolic CHF (congestive heart failure) Code(s): I50.33 - ACUTE ON CHRONIC DIASTOLIC (CONGESTIVE) HEART FAILURE (3) CHF exacerbation Code(s): I50.9 - HEART FAILURE, UNSPECIFIED Qualifiers: Heart failure type: unspecified Qualified Code(s): I50.9 - Heart failure, unspecified (4) Elevated LFTs Code(s): R94.5 - ABNORMAL RESULTS OF LIVER FUNCTION STUDIES (5) Atrial fibrillation Code(s): I48.91 - UNSPECIFIED ATRIAL FIBRILLATION Qualifiers: Atrial fibrillation type: persistent Qualified Code(s): I48.1 - Persistent atrial fibrillation (6) CAD (coronary artery disease) Code(s): I25.10 - ATHSCL HEART DISEASE OF [place] CORONARY ARTERY W/O ANG PCTRS Qualifiers: Coronary Disease-Associated Artery/Lesion type: [place] artery [place] vs. transplanted heart: [place] heart Associated angina: without angina Qualified Code(s): I25.10 - Atherosclerotic heart disease of [place] coronary artery without angina pectoris (7) CHF (congestive heart failure) Code(s): I50.9 - HEART FAILURE, UNSPECIFIED Qualifiers: Heart failure type: unspecified Heart failure chronicity: acute on chronic Qualified Code(s): I50.9 - Heart failure, unspecified (8) COPD with acute exacerbation Code(s): J44.1 - CHRONIC OBSTRUCTIVE PULMONARY DISEASE W (ACUTE) EXACERBATION (9) Cellulitis Code(s): L03.90 - CELLULITIS, UNSPECIFIED (10) Electrolyte abnormality Code(s): E87.8 - OTH DISORDERS OF ELECTROLYTE AND FLUID BALANCE, NEC (11) Pulmonary HTN Code(s): I27.20 - PULMONARY HYPERTENSION, UNSPECIFIED (12) Shortness of breath Code(s): R06.02 - SHORTNESS OF BREATH (13) Stasis dermatitis of both legs Code(s): I87.2 - VENOUS INSUFFICIENCY (CHRONIC) (PERIPHERAL) Assessment/Plan IV LASIX HYPONATREMIA WORSE NEPHROLOGY F/U CARDIO/PULM EVAL CHRONIC CHF WITH ACUTE EXACERBATION OOB TO CHAIR VASC EVAL STASIS DERMATITIS WITH WEEPING EDEMA NEEDS NUTRITION EVAL TO PREVENT CHF EXACERBATIONS STRICT LOW SALT DIET ADA LOW FAT WITH WATER RESTRICTIONS PATIENT HAS BEEN NON-COMPLIANT AND INADHERENT TO MEDICAL THERAPY AND DIET. I WILL CALL FOR NUTRITION CONSULT AND MONTHLY OUTPATIENT F/U TO ASSIST COLTON WITH HIS ILLNESS.
--- NOTE | 2018-11-27 12:37 | PN ---
Progress Note (short form) - Note Progress Note: PULMONARY Still with shortness of breath and leg swelling. Also complaining of abdominal bloating. Vital Signs Period Temp Pulse Resp BP Sys/Uribe Pulse Ox Last 24 Hr 97.3 F-98.7 F 78-98 20-20 110-146/62-90 97 Gen: mildly tachypneic with speaking Heart: RRR Lung: scattered rhonchi Abd: softly distended, nontender Ext: + edema CBC, BMP 11/26/18 08:48 11/26/18 08:48 Active Medications Acetaminophen (Tylenol -) 650 mg PO Q8H PRN PRN Reason: PAIN/FEVER Last Admin: 11/26/18 22:01 Dose: 650 mg Albuterol Sulfate (Ventolin 0.083% Nebulizer Soln -) 1 amp NEB Q8H PRN PRN Reason: SHORT OF BREATH/WHEEZING Last Admin: 11/26/18 04:24 Dose: 1 amp Atorvastatin Calcium (Lipitor -) 40 mg PO HS [facility] Last Admin: 11/26/18 21:58 Dose: 40 mg Budesonide/Formoterol Fumarate (Symbicort 160/4.5mcg -) 2 puff IH BID [facility] Last Admin: 11/27/18 10:13 Dose: 2 puff Dabigatran (Pradaxa -) 150 mg PO BID [facility] Last Admin: 11/27/18 10:11 Dose: 150 mg Digoxin (Lanoxin -) 0.25 mg PO DAILY [facility] Last Admin: 11/27/18 10:11 Dose: 0.25 mg Furosemide (Lasix Injection -) 40 mg IVPUSH DAILY [facility] Last Admin: 11/27/18 10:11 Dose: 40 mg Guaifenesin/Codeine Phosphate (Robitussin Ac -) 5 ml PO TID PRN PRN Reason: COUGH Last Admin: 11/27/18 06:03 Dose: 5 ml Insulin Aspart (Novolog Vial Sliding Scale -) 1 vial SQ [facility]; Protocol Last Admin: 11/27/18 12:00 Dose: Not Given Insulin Detemir (Levemir Vial) 15 units SQ BID@0700,2200 [facility] Last Admin: 11/27/18 06:03 Dose: 15 unit Isosorbide Mononitrate (Imdur -) 60 mg PO DAILY [facility] Last Admin: 11/27/18 10:11 Dose: 60 mg Lisinopril (Prinivil) 5 mg PO DAILY [facility] Last Admin: 11/27/18 10:11 Dose: 5 mg Metoprolol Succinate (Toprol Xl -) 50 mg PO DAILY [facility] Last Admin: 11/27/18 10:11 Dose: 50 mg Montelukast Sodium (Singulair -) 10 mg PO HS [facility] Last Admin: 11/26/18 21:58 Dose: 10 mg Potassium Chloride (Potassium Chloride Oral Liquid) 20 meq PO BID [facility] Last Admin: 11/27/18 10:11 Dose: 20 meq Prednisone (Deltasone -) 30 mg PO BID [facility] Last Admin: 11/27/18 10:11 Dose: 30 mg Tiotropium [place] (Spiriva Respimat) 2 puff IH DAILY [facility] Last Admin: 11/27/18 10:13 Dose: 2 puff A/P Acute on Chronic Systolic Heart Failure CAD s/p stents Atrial Fibrillation Pulmonary HTN COPD Likely JUAN CARLOS Acute Kidney Injury HTN DM - continue lasix - monitor urine output, creatinine - daily weights - rate controlled - continue anticoagulation - will decrease prednisone to daily - inhaled bronchodilators - O2 to keep SpO2 >90%
[2018-11-27 14:07] LABS: ANION GAP 10 MMOL/L (8-16); BLOOD UREA NITROGEN 62 mg/dL (7-18); CALCIUM 8.2 mg/dL (8.5-10.1); CHLORIDE 87 mmol/L (98-107); CO2 29 mmol/L (21-32); CREATININE 1.9 mg/dL (0.55-1.3); GLUCOSE,RANDOM 141 mg/dL (74-106); POTASSIUM 5.1 mmol/L (3.5-5.1); SODIUM 126 mmol/L (136-145)
--- NOTE | 2018-11-27 15:52 | CONSULT ---
Consult Consult Specialty:: Nephrology Reason for Consultation:: SHANTANU and fluid overload - History of Present Illness Chief Complaint: shortness of breath History of Present Illness: Pt is a 63 year old male with pmhx of CHF, CKD, CAD, a-fib, COPD, htn, HLD, and DM who presented with worsening shortness of breath. He also complains of increased lower ext edema. He was found to have worsening renal failure and I was called to evaluate him. He denies chest pain. He says he is not urinating as much and has difficulty passing urine. He denies fevers or chills. He denies nsaid use. He is not compliant with diet. - History Source History Provided By: Patient, Medical Record - Past Medical History Cardio/Vascular: Yes: AFIB, CAD, CHF, HTN Pulmonary: Yes: COPD Infectious Disease: Yes: Other (pneumonia and the flu) Endocrine: Yes: Diabetes Mellitus - Past Surgical History Past Surgical History: Yes: Stent - Alcohol/Substance Use Hx Alcohol Use: No History of Substance Use: reports: None - Smoking History Smoking history: Former smoker Have you smoked in the past 12 months: No Aproximately how many cigarettes per day: 0 If you are a former smoker, when did you quit?: 2yrs - Social History ADL: Independent (ambulates with cane) History of Recent Travel: No Home Medications - Allergies Allergies/Adverse Reactions: Allergies Allergy/AdvReac Type Severity Reaction Status Date / Time Iodinated Contrast- Oral and AdvReac Intermediate Nausea Verified 08/29/18 14:38 IV Dye - Home Medications Home Medications: Ambulatory Orders Fluticasone/Salmeterol [Advair Hfa 115-21 Mcg Inhaler] 2 inh PO BID 02/07/18 Dabigatran Etexilate Mesylate [Pradaxa -] 150 mg PO BID cap 05/29/18 Digoxin [Lanoxin -] 0.25 mg PO DAILY tablet 05/29/18 Montelukast Na [Singulair -] 10 mg PO HS tablet 05/29/18 Potassium Chloride [K-Dur -] 20 meq PO DAILY tablet.er 05/29/18 Albuterol 2.5/Ipratropium 0.5 [Duoneb -] 1 amp NEB Q6H PRN amp 09/03/18 Atorvastatin Ca [Lipitor] 40 mg PO HS tablet 09/03/18 Hydrocortisone 0.5% Ointment [Hytone 0.5% Ointment -] 1 applic TP BID PRN tube 09/03/18 Insulin Sliding Scale [Novolog Vial Sliding Scale -] 1 vial SQ ACHS units 09/03 Isosorbide Mononitrate [Imdur -] 60 mg PO DAILY tab.sr.24h 09/03/18 Melatonin 10 mg PO HS tab 09/03/18 Metoprolol Succinate [Toprol XL -] 50 mg PO DAILY tab.sr.24h 09/03/18 Furosemide [Lasix -] 40 mg PO BID@0600,1400 09/24/18 Lisinopril [Prinivil] 5 mg PO DAILY 09/24/18 Nystatin Cream [Mycostatin Cream -] 1 applic TP BID 09/24/18 Acetaminophen [Tylenol .Regular Strength -] 650 mg PO Q6H PRN tablet 09/30/18 Budesonide/Formeterol Fumarate [SYMBICORT 160/4.5mcg -] 2 puff IH BID inhaler 09/30/18 Guaifenesin/D-Methorphan Hb [Diabetic Tussin Dm -] 5 ml PO Q4H PRN ml 09/30/18 Insulin (Levemir) [Levemir Vial] 15 units SQ BID@0700,2200 units 09/30/18 Tiotropium [place] [Spiriva Respimat] 2 puff IH DAILY inhaler 09/30/18 predniSONE [Deltasone -] 30 mg PO BID tablet 09/30/18 Prednisone 30 mg PO BID #100 tablet 10/01/18 Family Disease History - Family Disease History Family Disease History: Respiratory: Mother (Asthma, age 35), Other: Father (Alcoholic, ) Review of Systems - Review of Systems Constitutional: reports: Malaise. denies: Chills Eyes: reports: No Symptoms HENT: reports: No Symptoms Neck: reports: No Symptoms Cardiovascular: reports: Edema, Shortness of Breath Respiratory: reports: SOB, SOB on Exertion Gastrointestinal: reports: Bloating Genitourinary: reports: No Symptoms Musculoskeletal: reports: No Symptoms Neurological: reports: No Symptoms Endocrine: reports: No Symptoms Hematology/Lymphatic: reports: No Symptoms Psychiatric: reports: No Symptoms Physical Exam Vital Signs: Vital Signs Temperature 97.8 F 01/17/19 14:00 Pulse Rate 79 11/27/18 14:00 Respiratory Rate 20 11/27/18 10:00 Blood Pressure 125/76 11/27/18 14:00 O2 Sat by Pulse Oximetry (%) 96 11/27/18 09:00 Constitutional: Yes: Calm Eyes: Yes: Conjunctiva Clear HENT: Yes: Atraumatic Neck: Yes: Supple Cardiovascular: Yes: S1, S2 Respiratory: Yes: On Nasal O2, Rhonchi Gastrointestinal: Yes: Soft, Abdomen, Obese Renal/: Yes: Bladder Distention Musculoskeletal: Yes: WNL Edema: Yes Edema: LLE: 2+, RLE: 2+ Neurological: Yes: Oriented Psychiatric: Yes: Oriented Labs: CBC, BMP 11/26/18 08:48 11/27/18 12:50 Laboratory Tests 11/25/18 11/26/18 11/26/18 17:25 08:48 08:48 WBC 9.6 Creatinine 1.1 1.7 H 11/27/18 12:50 WBC Creatinine 1.9 H Imaging - Results Chest X-ray: Report Reviewed Other: Report Reviewed (echo reviewed) Problem List - Problems (1) Acute kidney injury Code(s): N17.9 - ACUTE KIDNEY FAILURE, UNSPECIFIED (2) Acute on chronic diastolic CHF (congestive heart failure) Code(s): I50.33 - ACUTE ON CHRONIC DIASTOLIC (CONGESTIVE) HEART FAILURE (3) CHF exacerbation Code(s): I50.9 - HEART FAILURE, UNSPECIFIED Qualifiers: Heart failure type: unspecified Qualified Code(s): I50.9 - Heart failure, unspecified Assessment/Plan Current Medications Generic Name Dose Route Start Last Admin Trade Name Freq PRN Reason Stop Dose Admin Acetaminophen 650 mg 11/26/18 14:06 11/26/18 22:01 Tylenol - PO 650 mg Q8H PRN Administration PAIN/FEVER Albuterol Sulfate 1 amp 11/25/18 20:11 11/26/18 04:24 Ventolin 0.083% Nebulizer Soln - NEB 1 amp Q8H PRN Administration SHORT OF BREATH/WHEEZING Atorvastatin Calcium 40 mg 11/25/18 22:00 11/26/18 21:58 Lipitor - PO 40 mg HS [facility] Administration Budesonide/Formoterol Fumarate 2 puff 11/25/18 22:00 11/27/18 10:13 Symbicort 160/4.5mcg - IH 2 puff BID [facility] Administration Dabigatran 150 mg 11/25/18 22:00 11/27/18 10:11 Pradaxa - PO 150 mg BID [facility] Administration Digoxin 0.25 mg 11/26/18 10:00 11/27/18 10:11 Lanoxin - PO 0.25 mg DAILY [facility] Administration Furosemide 40 mg 11/26/18 10:00 11/27/18 10:11 Lasix Injection - IVPUSH 40 mg DAILY [facility] Administration Guaifenesin/Codeine Phosphate 5 ml 11/26/18 10:48 11/27/18 06:03 Robitussin Ac - PO 5 ml TID PRN Administration COUGH Insulin Aspart 1 vial 11/25/18 22:00 11/27/18 12:00 Novolog Vial Sliding Scale - SQ Not Given ACHS [facility] Protocol Insulin Detemir 15 units 11/25/18 22:00 11/27/18 06:03 Levemir Vial SQ 15 unit BID@0700,2200 [facility] Administration Isosorbide Mononitrate 60 mg 11/26/18 10:00 11/27/18 10:11 Imdur - PO 60 mg DAILY [facility] Administration Lisinopril 5 mg 11/26/18 10:00 11/27/18 10:11 Prinivil PO 5 mg DAILY [facility] Administration Metoprolol Succinate 50 mg 11/26/18 10:00 11/27/18 10:11 Toprol Xl - PO 50 mg DAILY [facility] Administration Montelukast Sodium 10 mg 11/25/18 22:00 11/26/18 21:58 Singulair - PO 10 mg HS [facility] Administration Potassium Chloride 20 meq 11/26/18 22:00 11/27/18 10:11 Potassium Chloride Oral Liquid PO 20 meq BID [facility] Administration Prednisone 30 mg 11/28/18 10:00 Deltasone - PO DAILY [facility] Tiotropium [place] 2 puff 11/26/18 10:00 11/27/18 10:13 Spiriva Respimat IH 2 puff DAILY [facility] Administration Impression 1. CHF 2. hyponatremia 3. fluid overload 4. asthma 5. a-fib 6. DM 7. shantanu Plan - stop lisinopril - stop potassium supplements - place herrera - check renal ultrasound - cont with lasix - will need better glucose control - monitor lytes - check osm and urine lytes - r/o urinary obstruction
--- NOTE | 2018-11-27 16:47 | PN ---
Progress Note, Physician Chief Complaint: CHF History of Present Illness: This is a 63 year old male with a PMH of CHF with known low EF 30-35% 08/2018. CAD s/p 2x stents, most recent 3-4 years ago, afib (on pradaxa), COPD, HTN, HLD , and DM. He presents now with a CHF exacerbation with massive weeping edema. Medication non adherence and dietary indiscretion noted. No chest pain but increasing MICHEL. - Current Medication List Current Medications: Active Medications Acetaminophen (Tylenol -) 650 mg PO Q8H PRN PRN Reason: PAIN/FEVER Last Admin: 11/26/18 22:01 Dose: 650 mg Albuterol Sulfate (Ventolin 0.083% Nebulizer Soln -) 1 amp NEB Q8H PRN PRN Reason: SHORT OF BREATH/WHEEZING Last Admin: 11/26/18 04:24 Dose: 1 amp Atorvastatin Calcium (Lipitor -) 40 mg PO HS [facility] Last Admin: 11/26/18 21:58 Dose: 40 mg Budesonide/Formoterol Fumarate (Symbicort 160/4.5mcg -) 2 puff IH BID [facility] Last Admin: 11/27/18 10:13 Dose: 2 puff Dabigatran (Pradaxa -) 150 mg PO BID [facility] Last Admin: 11/27/18 10:11 Dose: 150 mg Digoxin (Lanoxin -) 0.25 mg PO DAILY [facility] Last Admin: 11/27/18 10:11 Dose: 0.25 mg Furosemide (Lasix Injection -) 40 mg IVPUSH DAILY [facility] Last Admin: 11/27/18 10:11 Dose: 40 mg Guaifenesin/Codeine Phosphate (Robitussin Ac -) 5 ml PO TID PRN PRN Reason: COUGH Last Admin: 11/27/18 06:03 Dose: 5 ml Insulin Aspart (Novolog Vial Sliding Scale -) 1 vial SQ ACHS [facility]; Protocol Last Admin: 11/27/18 12:00 Dose: Not Given Insulin Detemir (Levemir Vial) 15 units SQ BID@0700,2200 [facility] Last Admin: 11/27/18 06:03 Dose: 15 unit Isosorbide Mononitrate (Imdur -) 60 mg PO DAILY [facility] Last Admin: 11/27/18 10:11 Dose: 60 mg Metoprolol Succinate (Toprol Xl -) 50 mg PO DAILY [facility] Last Admin: 11/27/18 10:11 Dose: 50 mg Montelukast Sodium (Singulair -) 10 mg PO [facility] Last Admin: 11/26/18 21:58 Dose: 10 mg Prednisone (Deltasone -) 30 mg PO DAILY [facility] Tiotropium [place] (Spiriva Respimat) 2 puff IH DAILY [facility] Last Admin: 11/27/18 10:13 Dose: 2 puff - Objective Vital Signs: Vital Signs Temperature 97.8 F 11/27/18 14:00 Pulse Rate 79 11/27/18 14:00 Respiratory Rate 20 11/27/18 10:00 Blood Pressure 125/76 11/27/18 14:00 O2 Sat by Pulse Oximetry (%) 96 11/27/18 09:00 Constitutional: Yes: No Distress Eyes: Yes: WNL HENT: Yes: WNL Neck: Yes: WNL Cardiovascular: No: Regular Rate and Rhythm (Irregular 2/6 [facility] S1 S2) Respiratory: Yes: Dullness (Basilar crackles) Gastrointestinal: Yes: Soft Edema: LLE: 3+, RLE: 3+ Neurological: Yes: Alert, Oriented Labs: CBC, BMP 11/26/18 08:48 11/27/18 12:50 INR, PTT INR 1.84 (0.83-1.09) H 11/25/18 17:25 Assessment/Plan 63 year old male with a PMH of CHF with known low EF 30-35% 08/2018. CAD s/p 2x stents, most recent 3-4 years ago, afib (on pradaxa), COPD, HTN, HLD, and DM. He presents now with a CHF exacerbation with massive weeping edema. Medication non adherence and dietary indiscretion noted. No chest pain but increasing MICHEL. CHF Acute on chronic systolic Echo 11/26/18 with severe LV function and severe MR Hypervolemic hyponatremia noted. Na++ no 126, Free water restriction Would give Lasix 40 mg IVSS daily Daily I's/O's/Wt's/Lytes Renal consultation appreciated, agree with stropping FRANK and potassium supplements AFIB Continue Pradaxa, with th eGFR 35.87 can still give 150 mg BID unless creatinine clearance goes below 30 mL/min. Rate control with DIG and metop Dig level noted, continue 0.25 mg daily
[2018-11-27] MEDS: ACETAMINOPHEN 325 MG TABLET (FP) PO PRN (17:52)
[2018-11-27 18:45] LABS: URINE APPEARANCE CLEAR; URINE BILIRUBIN NEGATIVE (<2.0 mg/dL); URINE COLOR YELLOW; URINE GLUCOSE (UA) NEGATIVE (NEGATIVE); URINE KETONE NEGATIVE (NEGATIVE); URINE LEUK ESTERASE NEGATIVE (NEGATIVE); URINE NITRITE NEGATIVE (NEGATIVE); URINE PROTEIN NEGATIVE (NEGATIVE); URINE UROBILINOGEN NEGATIVE mg/dL (0.2-1.0)
[2018-11-27] MEDS: ALBUTEROL SO4 0.083% IH SOL 2.5 MG/3 ML VIAL.NEB. NEB PRN (21:05)
[2018-11-27] MEDS: ATORVASTATIN CA 40 MG TABLET (FP) PO SCH (22:40)
[2018-11-27] MEDS: MONTELUKAST NA 10 MG TABLET PO SCH (22:40)
[2018-11-28] MEDS: INSULIN SLIDING SCALE (NOVOLOG) 1 VIAL SQ SCH ×4 (06:22→21:30)
[2018-11-28] MEDS: INSULIN (LEVEMIR) 100 UNITS/ML UNITS SQ SCH ×2 (06:24→21:29)
[2018-11-28 07:49] LABS: BASO % 0.1 % (0-2.0); HEMATOCRIT 36.7 % (35.4-49); HEMOGLOBIN 12.1 GM/dL (11.7-16.9); MCH 28.7 pg (25.7-33.7); MEAN CELL VOLUME 87.1 fl (80-96); MONO % 9.6 % (3.8-10.2); NEUT % 87.3 % (42.8-82.8); PLATELET COUNT 167 K/MM3 (134-434); RBC 4.21 M/mm3 (4.00-5.60); WHITE BLOOD COUNT 10.4 K/mm3 (4.0-10.0)
[2018-11-28] MEDS: ALBUTEROL SO4 0.083% IH SOL 2.5 MG/3 ML VIAL.NEB. NEB PRN ×2 (08:45→16:06)
[2018-11-28 08:50] LABS: ALBUMIN 2.6 g/dl (3.4-5.0); ALK PHOS 339 U/L (45-117); ANION GAP 8 MMOL/L (8-16); BILIRUBIN,TOTAL 2.4 mg/dL (0.2-1); BLOOD UREA NITROGEN 66 mg/dL (7-18); CALCIUM 7.9 mg/dL (8.5-10.1); CHLORIDE 89 mmol/L (98-107); CO2 32 mmol/L (21-32); CREATININE 1.6 mg/dL (0.55-1.3); GLUCOSE,RANDOM 125 mg/dL (74-106); POTASSIUM 4.7 mmol/L (3.5-5.1); SGOT/AST 139 U/L (15-37); SGPT/ALT 215 U/L (13-61); SODIUM 129 mmol/L (136-145); TOT PROT 6.1 g/dl (6.4-8.2)
[2018-11-28] MEDS: predniSONE 10 MG TABLET (UD) PO SCH (09:44)
[2018-11-28] MEDS: DIGOXIN 0.25 MG TABLET (FP) PO SCH (09:45)
[2018-11-28] MEDS: DABIGATRAN ETEXILATE MESYLATE 150 MG CAPSULE PO SCH ×2 (09:45→21:40)
[2018-11-28] MEDS: ISOSORBIDE MONONITRATE 60 MG TAB.SR.24H (FP) PO SCH (09:45)
[2018-11-28] MEDS: FUROSEMIDE 40 MG/4 ML INJECTABLE VIAL IVPUSH SCH (09:45)
[2018-11-28] MEDS: BUDESONIDE/FORMETEROL FUMARATE 160/4.5 mcg INHALER IH SCH ×2 (09:46→21:40)
[2018-11-28] MEDS: TIOTROPIUM BROMIDE 2.5 MCG (SPIRIVA) RESPIMAT INHALER IH SCH (09:47)
[2018-11-28 10:58] LABS: OSMOLALITY,SERUM 373 mosm/kg (278-305)
--- NOTE | 2018-11-28 11:12 | PN ---
Progress Note, Physician History of Present Illness: pulmonary alert,still c/o sob,+cough,-cp - Current Medication List Current Medications: Active Medications Acetaminophen (Tylenol -) 650 mg PO Q8H PRN PRN Reason: PAIN/FEVER Last Admin: 11/27/18 17:52 Dose: 650 mg Albuterol Sulfate (Ventolin 0.083% Nebulizer Soln -) 1 amp NEB Q8H PRN PRN Reason: SHORT OF BREATH/WHEEZING Last Admin: 11/28/18 08:45 Dose: 1 amp Atorvastatin Calcium (Lipitor -) 40 mg PO HS [facility] Last Admin: 11/27/18 22:40 Dose: 40 mg Budesonide/Formoterol Fumarate (Symbicort 160/4.5mcg -) 2 puff IH BID [facility] Last Admin: 11/28/18 09:46 Dose: 2 puff Dabigatran (Pradaxa -) 150 mg PO BID [facility] Last Admin: 11/28/18 09:45 Dose: 150 mg Digoxin (Lanoxin -) 0.25 mg PO DAILY [facility] Last Admin: 11/28/18 09:45 Dose: 0.25 mg Furosemide (Lasix Injection -) 40 mg IVPUSH DAILY [facility] Last Admin: 11/28/18 09:45 Dose: 40 mg Guaifenesin/Codeine Phosphate (Robitussin Ac -) 5 ml PO TID PRN PRN Reason: COUGH Last Admin: 11/27/18 17:52 Dose: 5 ml Insulin Aspart (Novolog Vial Sliding Scale -) 1 vial SQ [facility]; Protocol Last Admin: 11/28/18 06:22 Dose: Not Given Insulin Detemir (Levemir Vial) 15 units SQ BID@0700,2200 [facility] Last Admin: 11/28/18 06:24 Dose: 15 unit Isosorbide Mononitrate (Imdur -) 60 mg PO DAILY [facility] Last Admin: 11/28/18 09:45 Dose: 60 mg Metoprolol Succinate (Toprol Xl -) 50 mg PO DAILY [facility] Last Admin: 11/28/18 09:45 Dose: 50 mg Montelukast Sodium (Singulair -) 10 mg PO HS [facility] Last Admin: 11/27/18 22:40 Dose: 10 mg Prednisone (Deltasone -) 30 mg PO DAILY [facility] Last Admin: 01/18/19 09:44 Dose: 30 mg Tiotropium [place] (Spiriva Respimat) 2 puff IH DAILY [facility] Last Admin: 11/28/18 09:47 Dose: 2 puff - Objective Vital Signs: Vital Signs Temperature 98 F 11/28/18 10:00 Pulse Rate 78 11/28/18 10:00 Respiratory Rate 18 11/28/18 10:00 Blood Pressure 112/76 11/28/18 10:00 O2 Sat by Pulse Oximetry (%) 97 11/27/18 19:52 Constitutional: Yes: Well Nourished, Calm Eyes: Yes: WNL HENT: Yes: WNL Neck: Yes: WNL Cardiovascular: Yes: Pulse Irregular, S1, S2 Respiratory: Yes: Rales (bilateral rales 1/3 up,SCATTERED RHONCHI), Rhonchi Gastrointestinal: Yes: Normal Bowel Sounds, Soft Extremities: Yes: WNL Edema: Yes Labs: CBC, BMP 11/28/18 05:30 11/28/18 05:30 INR, PTT INR 1.84 (0.83-1.09) H 11/25/18 17:25 Problem List - Problems (1) Acute kidney injury Code(s): N17.9 - ACUTE KIDNEY FAILURE, UNSPECIFIED (2) Elevated LFTs Code(s): R94.5 - ABNORMAL RESULTS OF LIVER FUNCTION STUDIES (3) Acute on chronic diastolic CHF (congestive heart failure) Code(s): I50.33 - ACUTE ON CHRONIC DIASTOLIC (CONGESTIVE) HEART FAILURE Assessment/Plan Problem List - Problems (1) Chest tightness Code(s): R07.89 - OTHER CHEST PAIN (2) Atrial fibrillation Code(s): I48.91 - UNSPECIFIED ATRIAL FIBRILLATION Qualifiers: Atrial fibrillation type: persistent Qualified Code(s): I48.1 - Persistent atrial fibrillation (3) CAD (coronary artery disease) Code(s): I25.10 - ATHSCL HEART DISEASE OF [place] CORONARY ARTERY W/O ANG PCTRS Qualifiers: Coronary Disease-Associated Artery/Lesion type: [place] artery [place] vs. transplanted heart: [place] heart Associated angina: without angina Qualified Code(s): I25.10 - Atherosclerotic heart disease of [place] coronary artery without angina pectoris (4) CHF (congestive heart failure) Code(s): I50.9 - HEART FAILURE, UNSPECIFIED Qualifiers: Heart failure type: unspecified Heart failure chronicity: acute on chronic Qualified Code(s): I50.9 - Heart failure, unspecified (5) COPD with acute exacerbation Code(s): J44.1 - CHRONIC OBSTRUCTIVE PULMONARY DISEASE W (ACUTE) EXACERBATION (6) Hypertension Code(s): I10 - ESSENTIAL (PRIMARY) HYPERTENSION Qualifiers: Hypertension type: essential hypertension Qualified Code(s): I10 - Essential (primary) hypertension (7) Pulmonary HTN Code(s): I27.20 - PULMONARY HYPERTENSION, UNSPECIFIED (8) Shortness of breath Code(s): R06.02 - SHORTNESS OF BREATH Assessment/Plan IMP ACUTE ON CHRONIC CHF NON-ISCHEMIC CARDIMYOPATHY COPD EXACERBATION ASHD S/P STENT AFIB LIKELY OSAS AHI 38.1 ON SLEEP SCREEN PULMONARY HTN ELEVATED LFTS ACUTE KIDNEY INJURY NIDDM S/P HYPOGLYCEMIC EPISODE HYPONATREMIA PLAN LASIX INHALED BRONCHODILATORS DAILY WT PREDNISONE O2 AC TREND LFTS MONITOR LYTES,BLOOD SUGARS,RENAL FUNCTION,NA BIPAP AT NIGHT DR TEJEDA Problem List - Problems (1) Chest tightness Code(s): R07.89 - OTHER CHEST PAIN (2) Atrial fibrillation Code(s): I48.91 - UNSPECIFIED ATRIAL FIBRILLATION Qualifiers: Atrial fibrillation type: persistent Qualified Code(s): I48.1 - Persistent atrial fibrillation (3) CAD (coronary artery disease) Code(s): I25.10 - ATHSCL HEART DISEASE OF [place] CORONARY ARTERY W/O ANG PCTRS Qualifiers: Coronary Disease-Associated Artery/Lesion type: [place] artery [place] vs. transplanted heart: [place] heart Associated angina: without angina Qualified Code(s): I25.10 - Atherosclerotic heart disease of [place] coronary artery without angina pectoris (4) CHF (congestive heart failure) Code(s): I50.9 - HEART FAILURE, UNSPECIFIED Qualifiers: Heart failure type: unspecified Heart failure chronicity: acute on chronic Qualified Code(s): I50.9 - Heart failure, unspecified (5) COPD with acute exacerbation Code(s): J44.1 - CHRONIC OBSTRUCTIVE PULMONARY DISEASE W (ACUTE) EXACERBATION (6) Hypertension Code(s): I10 - ESSENTIAL (PRIMARY) HYPERTENSION Qualifiers: Hypertension type: essential hypertension Qualified Code(s): I10 - Essential (primary) hypertension (7) Pulmonary HTN Code(s): I27.20 - PULMONARY HYPERTENSION, UNSPECIFIED (8) Shortness of breath Code(s): R06.02 - SHORTNESS OF BREATH Problem List - Problems (1) Acute kidney injury Code(s): N17.9 - ACUTE KIDNEY FAILURE, UNSPECIFIED (2) Elevated LFTs Code(s): R94.5 - ABNORMAL RESULTS OF LIVER FUNCTION STUDIES (3) Acute on chronic diastolic CHF (congestive heart failure) Code(s): I50.33 - ACUTE ON CHRONIC DIASTOLIC (CONGESTIVE) HEART FAILURE
[2018-11-28] MEDS ORDERED: FUROSEMIDE 40 MG/4 ML INJECTABLE VIAL IVPUSH ONE (12:43)
--- NOTE | 2018-11-28 12:43 | PN ---
Progress Note, Physician History of Present Illness: Pt seen and examined at bedside. He complains of shortness of breath and lower ext edema. - Current Medication List Current Medications: Active Medications Acetaminophen (Tylenol -) 650 mg PO Q8H PRN PRN Reason: PAIN/FEVER Last Admin: 11/27/18 17:52 Dose: 650 mg Albuterol Sulfate (Ventolin 0.083% Nebulizer Soln -) 1 amp NEB Q8H PRN PRN Reason: SHORT OF BREATH/WHEEZING Last Admin: 11/28/18 08:45 Dose: 1 amp Atorvastatin Calcium (Lipitor -) 40 mg PO HS [facility] Last Admin: 11/27/18 22:40 Dose: 40 mg Budesonide/Formoterol Fumarate (Symbicort 160/4.5mcg -) 2 puff IH BID [facility] Last Admin: 11/28/18 09:46 Dose: 2 puff Dabigatran (Pradaxa -) 150 mg PO BID [facility] Last Admin: 11/28/18 09:45 Dose: 150 mg Digoxin (Lanoxin -) 0.25 mg PO DAILY [facility] Last Admin: 11/28/18 09:45 Dose: 0.25 mg Furosemide (Lasix Injection -) 40 mg IVPUSH DAILY [facility] Last Admin: 11/28/18 09:45 Dose: 40 mg Guaifenesin/Codeine Phosphate (Robitussin Ac -) 5 ml PO TID PRN PRN Reason: COUGH Last Admin: 11/27/18 17:52 Dose: 5 ml Insulin Aspart (Novolog Vial Sliding Scale -) 1 vial SQ [facility]; Protocol Last Admin: 11/28/18 12:22 Dose: Not Given Insulin Detemir (Levemir Vial) 15 units SQ BID@0700,2200 [facility] Last Admin: 11/28/18 06:24 Dose: 15 unit Isosorbide Mononitrate (Imdur -) 60 mg PO DAILY [facility] Last Admin: 11/28/18 09:45 Dose: 60 mg Metoprolol Succinate (Toprol Xl -) 50 mg PO DAILY [facility] Last Admin: 11/28/18 09:45 Dose: 50 mg Montelukast Sodium (Singulair -) 10 mg PO HS [facility] Last Admin: 11/27/18 22:40 Dose: 10 mg Prednisone (Deltasone -) 30 mg PO DAILY [facility] Last Admin: 11/28/18 09:44 Dose: 30 mg Tiotropium [place] (Spiriva Respimat) 2 puff IH DAILY [facility] Last Admin: 11/28/18 09:47 Dose: 2 puff - Objective Vital Signs: Vital Signs Temperature 98 F 11/28/18 10:00 Pulse Rate 78 11/28/18 10:00 Respiratory Rate 18 11/28/18 10:00 Blood Pressure 112/76 11/28/18 10:00 O2 Sat by Pulse Oximetry (%) 97 11/27/18 19:52 Constitutional: Yes: Calm Eyes: Yes: Conjunctiva Clear HENT: Yes: Atraumatic Neck: Yes: Supple Cardiovascular: Yes: S1, S2 Respiratory: Yes: On Nasal O2, Rhonchi Gastrointestinal: Yes: Soft Genitourinary: Yes: WNL Edema: Yes Edema: LLE: 3+, RLE: 3+ Neurological: Yes: Oriented Psychiatric: Yes: Oriented Labs: CBC, BMP 11/28/18 05:30 11/28/18 05:30 INR, PTT INR 1.84 (0.83-1.09) H 11/25/18 17:25 Problem List - Problems (1) Acute kidney injury Code(s): N17.9 - ACUTE KIDNEY FAILURE, UNSPECIFIED (2) Acute on chronic diastolic CHF (congestive heart failure) Code(s): I50.33 - ACUTE ON CHRONIC DIASTOLIC (CONGESTIVE) HEART FAILURE (3) CHF exacerbation Code(s): I50.9 - HEART FAILURE, UNSPECIFIED Qualifiers: Heart failure type: unspecified Qualified Code(s): I50.9 - Heart failure, unspecified Assessment/Plan Current Medications Generic Name Dose Route Start Last Admin Trade Name Freq PRN Reason Stop Dose Admin Acetaminophen 650 mg 11/26/18 14:06 11/27/18 17:52 Tylenol - PO 650 mg Q8H PRN Administration PAIN/FEVER Albuterol Sulfate 1 amp 11/25/18 20:11 11/28/18 08:45 Ventolin 0.083% Nebulizer Soln - NEB 1 amp Q8H PRN Administration SHORT OF BREATH/WHEEZING Atorvastatin Calcium 40 mg 11/25/18 22:00 11/27/18 22:40 Lipitor - PO 40 mg HS [facility] Administration Budesonide/Formoterol Fumarate 2 puff 11/25/18 22:00 11/28/18 09:46 Symbicort 160/4.5mcg - IH 2 puff BID [facility] Administration Dabigatran 150 mg 11/25/18 22:00 11/28/18 09:45 Pradaxa - PO 150 mg BID [facility] Administration Digoxin 0.25 mg 11/26/18 10:00 11/28/18 09:45 Lanoxin - PO 0.25 mg DAILY [facility] Administration Furosemide 40 mg 11/26/18 10:00 11/28/18 09:45 Lasix Injection - IVPUSH 40 mg DAILY [facility] Administration Guaifenesin/Codeine Phosphate 5 ml 11/26/18 10:48 11/27/18 17:52 Robitussin Ac - PO 5 ml TID PRN Administration COUGH Insulin Aspart 1 vial 11/25/18 22:00 11/28/18 12:22 Novolog Vial Sliding Scale - SQ Not Given ACHS [facility] Protocol Insulin Detemir 15 units 11/25/18 22:00 11/28/18 06:24 Levemir Vial SQ 15 unit BID@0700,2200 [facility] Administration Isosorbide Mononitrate 60 mg 11/26/18 10:00 11/28/18 09:45 Imdur - PO 60 mg DAILY [facility] Administration Metoprolol Succinate 50 mg 11/26/18 10:00 11/28/18 09:45 Toprol Xl - PO 50 mg DAILY [facility] Administration Montelukast Sodium 10 mg 11/25/18 22:00 11/27/18 22:40 Singulair - PO 10 mg HS [facility] Administration Prednisone 30 mg 11/28/18 10:00 11/28/18 09:44 Deltasone - PO 30 mg DAILY [facility] Administration Tiotropium [place] 2 puff 11/26/18 10:00 11/28/18 09:47 Spiriva Respimat IH 2 puff DAILY [facility] Administration Impression 1. CHF 2. hyponatremia 3. fluid overload 4. asthma 5. a-fib 6. DM 7. td Plan - will give another dose of lasix - hold chirag - monitor output - he refused herrera - ultrasound reviewed - monitor sodium - restrict water intake - check osm and urine lytes
--- NOTE | 2018-11-28 15:39 | PN ---
Progress Note, Physician Chief Complaint: CHF History of Present Illness: This is a 63 year old male with a PMH of CHF with known low EF 30-35% 08/2018. CAD s/p 2x stents, most recent 3-4 years ago, afib (on pradaxa), COPD, HTN, HLD , and DM. He presents now with a CHF exacerbation with massive weeping edema. Medication non adherence and dietary indiscretion noted. No chest pain but increasing MICHEL. - Current Medication List Current Medications: Active Medications Acetaminophen (Tylenol -) 650 mg PO Q8H PRN PRN Reason: PAIN/FEVER Last Admin: 11/27/18 17:52 Dose: 650 mg Albuterol Sulfate (Ventolin 0.083% Nebulizer Soln -) 1 amp NEB Q8H PRN PRN Reason: SHORT OF BREATH/WHEEZING Last Admin: 11/28/18 08:45 Dose: 1 amp Atorvastatin Calcium (Lipitor -) 40 mg PO HS [facility] Last Admin: 11/27/18 22:40 Dose: 40 mg Budesonide/Formoterol Fumarate (Symbicort 160/4.5mcg -) 2 puff IH BID [facility] Last Admin: 11/28/18 09:46 Dose: 2 puff Dabigatran (Pradaxa -) 150 mg PO BID [facility] Last Admin: 11/28/18 09:45 Dose: 150 mg Digoxin (Lanoxin -) 0.25 mg PO DAILY [facility] Last Admin: 11/28/18 09:45 Dose: 0.25 mg Furosemide (Lasix Injection -) 40 mg IVPUSH DAILY [facility] Last Admin: 11/28/18 09:45 Dose: 40 mg Guaifenesin/Codeine Phosphate (Robitussin Ac -) 5 ml PO TID PRN PRN Reason: COUGH Last Admin: 11/27/18 17:52 Dose: 5 ml Insulin Aspart (Novolog Vial Sliding Scale -) 1 vial SQ [facility]; Protocol Last Admin: 11/28/18 12:22 Dose: Not Given Insulin Detemir (Levemir Vial) 15 units SQ BID@0700,2200 [facility] Last Admin: 11/28/18 06:24 Dose: 15 unit Isosorbide Mononitrate (Imdur -) 60 mg PO DAILY [facility] Last Admin: 11/28/18 09:45 Dose: 60 mg Metoprolol Succinate (Toprol Xl -) 50 mg PO DAILY [facility] Last Admin: 11/28/18 09:45 Dose: 50 mg Montelukast Sodium (Singulair -) 10 mg PO [facility] Last Admin: 11/27/18 22:40 Dose: 10 mg Prednisone (Deltasone -) 30 mg PO DAILY [facility] Last Admin: 11/28/18 09:44 Dose: 30 mg Tiotropium [place] (Spiriva Respimat) 2 puff IH DAILY [facility] Last Admin: 11/28/18 09:47 Dose: 2 puff - Objective Vital Signs: Vital Signs Temperature 97.8 F 11/28/18 14:00 Pulse Rate 82 11/28/18 14:00 Respiratory Rate 20 11/28/18 14:00 Blood Pressure 126/57 L 11/28/18 14:00 O2 Sat by Pulse Oximetry (%) 97 11/27/18 19:52 Constitutional: Yes: No Distress HENT: Yes: WNL Neck: Yes: WNL Cardiovascular: Yes: Pulse Irregular (2/6 H[facility] apex) Respiratory: Yes: Dullness (Bibasilar) Gastrointestinal: Yes: Soft Edema: RUE: 2+, LLE: 2+ Neurological: Yes: Alert, Oriented Labs: CBC, BMP 11/28/18 05:30 11/28/18 05:30 INR, PTT INR 1.84 (0.83-1.09) H 11/25/18 17:25 Assessment/Plan 63 year old male with a PMH of CHF with known low EF 30-35% 08/2018. CAD s/p 2x stents, most recent 3-4 years ago, afib (on pradaxa), COPD, HTN, HLD, and DM. He presents now with a CHF exacerbation with massive weeping edema. Medication non adherence and dietary indiscretion noted. No chest pain but increasing MICHEL. CHF Acute on chronic systolic Echo 11/26/18 with severe LV function and severe MR Hypervolemic hyponatremia noted. Free water restriction Would continue Lasix 40 mg IVSS daily Daily I's/O's/Wt's/Lytes Renal consult appreciated AFIB Continue Pradaxa, with th eGFR 35.87 can still give 150 mg BID unless creatinine clearance goes below 30 mL/min. Rate control with DIG and metop Dig level noted, continue 0.25 mg daily Will follow with you.
--- NOTE | 2018-11-28 16:13 | PN ---
Progress Note, Physician Chief Complaint: CHF exacerbation CAD Afib History of Present Illness: Previous notes and events reviewed awake and alert complain of non-productive cough, patient sts prior to hospital admission he had the flu denies worsening of SOB or dyspnea complain of mid chest discomfort Renal US show no hydronephrosis - Current Medication List Current Medications: Active Medications Acetaminophen (Tylenol -) 650 mg PO Q8H PRN PRN Reason: PAIN/FEVER Last Admin: 11/27/18 17:52 Dose: 650 mg Albuterol Sulfate (Ventolin 0.083% Nebulizer Soln -) 1 amp NEB Q8H PRN PRN Reason: SHORT OF BREATH/WHEEZING Last Admin: 11/28/18 08:45 Dose: 1 amp Atorvastatin Calcium (Lipitor -) 40 mg PO [facility] Last Admin: 11/27/18 22:40 Dose: 40 mg Budesonide/Formoterol Fumarate (Symbicort 160/4.5mcg -) 2 puff IH BID [facility] Last Admin: 11/28/18 09:46 Dose: 2 puff Dabigatran (Pradaxa -) 150 mg PO BID [facility] Last Admin: 11/28/18 09:45 Dose: 150 mg Digoxin (Lanoxin -) 0.25 mg PO DAILY [facility] Last Admin: 11/28/18 09:45 Dose: 0.25 mg Furosemide (Lasix Injection -) 40 mg IVPUSH DAILY [facility] Last Admin: 11/28/18 09:45 Dose: 40 mg Guaifenesin/Codeine Phosphate (Robitussin Ac -) 5 ml PO TID PRN PRN Reason: COUGH Last Admin: 11/27/18 17:52 Dose: 5 ml Insulin Aspart (Novolog Vial Sliding Scale -) 1 vial SQ [facility]; Protocol Last Admin: 11/28/18 12:22 Dose: Not Given Insulin Detemir (Levemir Vial) 15 units SQ BID@0700,2200 [facility] Last Admin: 11/28/18 06:24 Dose: 15 unit Isosorbide Mononitrate (Imdur -) 60 mg PO DAILY [facility] Last Admin: 11/28/18 09:45 Dose: 60 mg Metoprolol Succinate (Toprol Xl -) 50 mg PO DAILY [facility] Last Admin: 11/28/18 09:45 Dose: 50 mg Montelukast Sodium (Singulair -) 10 mg PO [facility] Last Admin: 11/27/18 22:40 Dose: 10 mg Prednisone (Deltasone -) 30 mg PO DAILY [facility] Last Admin: 11/28/18 09:44 Dose: 30 mg Tiotropium [place] (Spiriva Respimat) 2 puff IH DAILY [facility] Last Admin: 11/28/18 09:47 Dose: 2 puff - Objective Vital Signs: Vital Signs Temperature 97.8 F 11/28/18 14:00 Pulse Rate 82 11/28/18 14:00 Respiratory Rate 20 11/28/18 14:00 Blood Pressure 126/57 L 11/28/18 14:00 O2 Sat by Pulse Oximetry (%) 97 11/28/18 09:00 Constitutional: Yes: Calm, Mild Distress, Obese Eyes: Yes: Conjunctiva Clear Cardiovascular: Yes: Regular Rate and Rhythm Respiratory: Yes: Diminished Gastrointestinal: Yes: Normal Bowel Sounds, Soft, Abdomen, Obese Musculoskeletal: Yes: Muscle Weakness Extremities: Yes: WNL Edema: Yes (weeping edema) Edema: LLE: 2+, RLE: 2+ Neurological: Yes: Alert, Oriented Psychiatric: Yes: Alert, Oriented Labs: CBC, BMP 11/28/18 05:30 11/28/18 05:30 INR, PTT INR 1.84 (0.83-1.09) H 11/25/18 17:25 <Mickie Ashley - Last Filed: 11/28/18 16:08> - Current Medication List Current Medications: Active Medications Acetaminophen (Tylenol -) 650 mg PO Q8H PRN PRN Reason: PAIN/FEVER Last Admin: 11/27/18 17:52 Dose: 650 mg Albuterol Sulfate (Ventolin 0.083% Nebulizer Soln -) 1 amp NEB Q8H PRN PRN Reason: SHORT OF BREATH/WHEEZING Last Admin: 11/28/18 16:06 Dose: 1 amp Atorvastatin Calcium (Lipitor -) 40 mg PO [facility] Last Admin: 11/27/18 22:40 Dose: 40 mg Budesonide/Formoterol Fumarate (Symbicort 160/4.5mcg -) 2 puff IH BID [facility] Last Admin: 11/28/18 09:46 Dose: 2 puff Dabigatran (Pradaxa -) 150 mg PO BID [facility] Last Admin: 11/28/18 09:45 Dose: 150 mg Digoxin (Lanoxin -) 0.25 mg PO DAILY [facility] Last Admin: 11/28/18 09:45 Dose: 0.25 mg Furosemide (Lasix Injection -) 40 mg IVPUSH DAILY [facility] Last Admin: 11/28/18 09:45 Dose: 40 mg Guaifenesin/Codeine Phosphate (Robitussin Ac -) 5 ml PO TID PRN PRN Reason: COUGH Last Admin: 11/27/18 17:52 Dose: 5 ml Insulin Aspart (Novolog Vial Sliding Scale -) 1 vial SQ ACHS [facility]; Protocol Last Admin: 11/28/18 16:47 Dose: 2 units Insulin Detemir (Levemir Vial) 15 units SQ BID@0700,2200 [facility] Last Admin: 11/28/18 06:24 Dose: 15 unit Isosorbide Mononitrate (Imdur -) 60 mg PO DAILY [facility] Last Admin: 11/28/18 09:45 Dose: 60 mg Metoprolol Succinate (Toprol Xl -) 50 mg PO DAILY [facility] Last Admin: 11/28/18 09:45 Dose: 50 mg Montelukast Sodium (Singulair -) 10 mg PO HS [facility] Last Admin: 11/27/18 22:40 Dose: 10 mg Prednisone (Deltasone -) 30 mg PO DAILY [facility] Last Admin: 11/28/18 09:44 Dose: 30 mg Tiotropium [place] (Spiriva Respimat) 2 puff IH DAILY [facility] Last Admin: 11/28/18 09:47 Dose: 2 puff - Objective Vital Signs: Vital Signs Temperature 97.3 F L 11/28/18 16:50 Pulse Rate 81 11/28/18 16:50 Respiratory Rate 18 11/28/18 16:50 Blood Pressure 132/77 11/28/18 16:50 O2 Sat by Pulse Oximetry (%) 97 11/28/18 09:00 Labs: CBC, BMP 11/28/18 05:30 11/28/18 05:30 INR, PTT INR 1.84 (0.83-1.09) H 11/25/18 17:25 <Jessica Wooten - Last Filed: 11/28/18 21:02> Problem List - Problems (1) Acute kidney injury Code(s): N17.9 - ACUTE KIDNEY FAILURE, UNSPECIFIED (2) Acute on chronic diastolic CHF (congestive heart failure) Code(s): I50.33 - ACUTE ON CHRONIC DIASTOLIC (CONGESTIVE) HEART FAILURE (3) CHF exacerbation Code(s): I50.9 - HEART FAILURE, UNSPECIFIED Qualifiers: Heart failure type: unspecified Qualified Code(s): I50.9 - Heart failure, unspecified (4) Chest pain Code(s): R07.9 - CHEST PAIN, UNSPECIFIED Qualifiers: Chest pain type: unspecified Qualified Code(s): R07.9 - Chest pain, unspecified (5) Elevated LFTs Code(s): R94.5 - ABNORMAL RESULTS OF LIVER FUNCTION STUDIES (6) Atrial fibrillation Code(s): I48.91 - UNSPECIFIED ATRIAL FIBRILLATION Qualifiers: Atrial fibrillation type: persistent Qualified Code(s): I48.1 - Persistent atrial fibrillation (7) CAD (coronary artery disease) Code(s): I25.10 - ATHSCL HEART DISEASE OF [place] CORONARY ARTERY W/O ANG PCTRS Qualifiers: Coronary Disease-Associated Artery/Lesion type: [place] artery [place] vs. transplanted heart: [place] heart Associated angina: without angina Qualified Code(s): I25.10 - Atherosclerotic heart disease of [place] coronary artery without angina pectoris (8) CHF (congestive heart failure) Code(s): I50.9 - HEART FAILURE, UNSPECIFIED Qualifiers: Heart failure type: unspecified Heart failure chronicity: acute on chronic Qualified Code(s): I50.9 - Heart failure, unspecified (9) COPD (chronic obstructive pulmonary disease) Code(s): J44.9 - CHRONIC OBSTRUCTIVE PULMONARY DISEASE, UNSPECIFIED <Mickie Ashley - Last Filed: 11/28/18 16:08> - Problems (1) Acute kidney injury Code(s): N17.9 - ACUTE KIDNEY FAILURE, UNSPECIFIED (2) Acute on chronic diastolic CHF (congestive heart failure) Code(s): I50.33 - ACUTE ON CHRONIC DIASTOLIC (CONGESTIVE) HEART FAILURE (3) CHF exacerbation Code(s): I50.9 - HEART FAILURE, UNSPECIFIED Qualifiers: Heart failure type: unspecified Qualified Code(s): I50.9 - Heart failure, unspecified (4) Elevated LFTs Code(s): R94.5 - ABNORMAL RESULTS OF LIVER FUNCTION STUDIES (5) Atrial fibrillation Code(s): I48.91 - UNSPECIFIED ATRIAL FIBRILLATION Qualifiers: Atrial fibrillation type: persistent Qualified Code(s): I48.1 - Persistent atrial fibrillation (6) CAD (coronary artery disease) Code(s): I25.10 - ATHSCL HEART DISEASE OF [place] CORONARY ARTERY W/O ANG PCTRS Qualifiers: Coronary Disease-Associated Artery/Lesion type: [place] artery [place] vs. transplanted heart: [place] heart Associated angina: without angina Qualified Code(s): I25.10 - Atherosclerotic heart disease of [place] coronary artery without angina pectoris (7) CHF (congestive heart failure) Code(s): I50.9 - HEART FAILURE, UNSPECIFIED Qualifiers: Heart failure type: unspecified Heart failure chronicity: acute on chronic Qualified Code(s): I50.9 - Heart failure, unspecified (8) COPD with acute exacerbation Code(s): J44.1 - CHRONIC OBSTRUCTIVE PULMONARY DISEASE W (ACUTE) EXACERBATION (9) Cellulitis Code(s): L03.90 - CELLULITIS, UNSPECIFIED (10) Electrolyte abnormality Code(s): E87.8 - OTH DISORDERS OF ELECTROLYTE AND FLUID BALANCE, NEC (11) Pulmonary HTN Code(s): I27.20 - PULMONARY HYPERTENSION, UNSPECIFIED (12) Shortness of breath Code(s): R06.02 - SHORTNESS OF BREATH (13) Stasis dermatitis of both legs Code(s): I87.2 - VENOUS INSUFFICIENCY (CHRONIC) (PERIPHERAL) <Jessica Wooten - Last Filed: 11/28/18 21:02> Assessment/Plan -cardiology on board -cont Lasix IVP -daily weights, strict I&O, 1L fluid restriction -cont with pradaxa, metoprolol, and digoxin -dig level to monitor for therapeutic range -pulm consult -cont with alb neb tx PRN -O2 via NC, keep SpO2 >90% -cont with prednisone and singulair -BGM ACHS, ISS, levemir -hyponatremia, renal on board cont with 1L fluid restriction -elev BUN/Cr will monitor for downward trend -dvt ppx <Mickie Ashley - Last Filed: 11/28/18 16:08> I HAVE EXAMINED THE PATIENT AND AGREE WITH THE ABOVE NOTE <Jessica Wooten - Last Filed: 11/28/18 21:02>
--- NOTE | 2018-11-28 19:05 | HOSP ---
Physical Examination Vital Signs: Vital Signs Temperature 97.8 F 11/28/18 14:00 Pulse Rate 82 11/28/18 14:00 Respiratory Rate 20 11/28/18 14:00 Blood Pressure 126/57 L 11/28/18 14:00 O2 Sat by Pulse Oximetry (%) 97 11/28/18 09:00 Labs: CBC, BMP 11/28/18 05:30 11/28/18 05:30 Hospitalist Encounter Assessment: called by nurse to review EKG, pt c/o chest pain earlier in the evening, EKG reviewed, no change from previous EKG, seen patient at bedside, c/o chestr tightness from fluid, symptoms same since admission, pt also reported chest discomfort this morning. will order trop x 1 pt on albuterol PRN -IV lasix -cardio following
[2018-11-28] MEDS: ATORVASTATIN CA 40 MG TABLET (FP) PO SCH (21:40)
[2018-11-28] MEDS: MONTELUKAST NA 10 MG TABLET PO SCH (21:40)
[2018-11-29] MEDS: INSULIN SLIDING SCALE (NOVOLOG) 1 VIAL SQ SCH ×4 (06:25→21:31)
[2018-11-29] MEDS: INSULIN (LEVEMIR) 100 UNITS/ML UNITS SQ SCH ×2 (06:27→21:31)
[2018-11-29 08:02] LABS: HEMATOCRIT 39.6 % (35.4-49); HEMOGLOBIN 12.9 GM/dL (11.7-16.9); MCH 28.8 pg (25.7-33.7); MCHC 32.7 g/dl (32.0-35.9); MEAN CELL VOLUME 88.2 fl (80-96); MEAN PLT VOLUME 10.1 fl (7.5-11.1); PLATELET COUNT 186 K/MM3 (134-434); RDW 19.5 % (11.9-15.9); WHITE BLOOD COUNT 10.7 K/mm3 (4.0-10.0)
[2018-11-29] MEDS: ALBUTEROL SO4 0.083% IH SOL 2.5 MG/3 ML VIAL.NEB. NEB PRN (08:05)
[2018-11-29 08:47] LABS: ALBUMIN 2.8 g/dl (3.4-5.0); ALK PHOS 412 U/L (45-117); ANION GAP 9 MMOL/L (8-16); BILIRUBIN,TOTAL 1.9 mg/dL (0.2-1); BLOOD UREA NITROGEN 59 mg/dL (7-18); CALCIUM 8.5 mg/dL (8.5-10.1); CHLORIDE 93 mmol/L (98-107); CO2 31 mmol/L (21-32); CREATININE 1.3 mg/dL (0.55-1.3); GLUCOSE,RANDOM 96 mg/dL (74-106); POTASSIUM 4.6 mmol/L (3.5-5.1); SGOT/AST 106 U/L (15-37); SGPT/ALT 190 U/L (13-61); SODIUM 133 mmol/L (136-145); TOT PROT 6.6 g/dl (6.4-8.2)
[2018-11-29] MEDS: BUDESONIDE/FORMETEROL FUMARATE 160/4.5 mcg INHALER IH SCH ×2 (12:04→21:39)
[2018-11-29] MEDS: DIGOXIN 0.25 MG TABLET (FP) PO SCH (12:04)
[2018-11-29] MEDS: FUROSEMIDE 40 MG/4 ML INJECTABLE VIAL IVPUSH SCH ×2 (12:04→15:49)
[2018-11-29] MEDS: predniSONE 10 MG TABLET (UD) PO SCH (12:04)
[2018-11-29] MEDS: DABIGATRAN ETEXILATE MESYLATE 150 MG CAPSULE PO SCH ×2 (12:04→21:39)
[2018-11-29] MEDS: ISOSORBIDE MONONITRATE 60 MG TAB.SR.24H (FP) PO SCH (12:04)
[2018-11-29] MEDS: TIOTROPIUM BROMIDE 2.5 MCG (SPIRIVA) RESPIMAT INHALER IH SCH (12:04)
--- NOTE | 2018-11-29 13:21 | PN ---
Progress Note, Physician History of Present Illness: Pt seen and examined at bedside. He is awake and alert. He feels that his breathing is improved. He complains of lower ext edema. - Current Medication List Current Medications: Active Medications Acetaminophen (Tylenol -) 650 mg PO Q8H PRN PRN Reason: PAIN/FEVER Last Admin: 11/27/18 17:52 Dose: 650 mg Albuterol Sulfate (Ventolin 0.083% Nebulizer Soln -) 1 amp NEB Q8H PRN PRN Reason: SHORT OF BREATH/WHEEZING Last Admin: 11/29/18 08:05 Dose: 1 amp Atorvastatin Calcium (Lipitor -) 40 mg PO HS [facility] Last Admin: 11/28/18 21:40 Dose: 40 mg Budesonide/Formoterol Fumarate (Symbicort 160/4.5mcg -) 2 puff IH BID [facility] Last Admin: 11/29/18 12:04 Dose: 2 puff Dabigatran (Pradaxa -) 150 mg PO BID [facility] Last Admin: 11/29/18 12:04 Dose: 150 mg Digoxin (Lanoxin -) 0.25 mg PO DAILY [facility] Last Admin: 11/29/18 12:04 Dose: 0.25 mg Furosemide (Lasix Injection -) 40 mg IVPUSH DAILY [facility] Last Admin: 11/29/18 12:04 Dose: 40 mg Insulin Aspart (Novolog Vial Sliding Scale -) 1 vial SQ ACHS [facility]; Protocol Last Admin: 11/29/18 12:43 Dose: Not Given Insulin Detemir (Levemir Vial) 15 units SQ BID@0700,2200 [facility] Last Admin: 11/29/18 06:27 Dose: 15 unit Isosorbide Mononitrate (Imdur -) 60 mg PO DAILY [facility] Last Admin: 11/29/18 12:04 Dose: 60 mg Metoprolol Succinate (Toprol Xl -) 50 mg PO DAILY [facility] Last Admin: 11/29/18 12:05 Dose: 50 mg Montelukast Sodium (Singulair -) 10 mg PO HS [facility] Last Admin: 11/28/18 21:40 Dose: 10 mg Prednisone (Deltasone -) 30 mg PO DAILY [facility] Last Admin: 11/29/18 12:04 Dose: 30 mg Tiotropium [place] (Spiriva Respimat) 2 puff IH DAILY [facility] Last Admin: 11/29/18 12:04 Dose: 2 puff - Objective Vital Signs: Vital Signs Temperature 97.9 F 11/29/18 05:00 Pulse Rate 82 11/29/18 12:04 Respiratory Rate 18 11/29/18 09:00 Blood Pressure 121/76 11/29/18 09:00 O2 Sat by Pulse Oximetry (%) 96 11/29/18 09:00 Constitutional: Yes: Calm Eyes: Yes: Conjunctiva Clear HENT: Yes: Atraumatic Cardiovascular: Yes: S1, S2 Respiratory: Yes: On Nasal O2, Rhonchi Gastrointestinal: Yes: Soft, Abdomen, Obese Genitourinary: Yes: WNL Musculoskeletal: Yes: WNL Edema: Yes Edema: LLE: 3+, RLE: 3+ Neurological: Yes: Oriented Psychiatric: Yes: Oriented Labs: CBC, BMP 11/29/18 06:38 11/29/18 06:38 INR, PTT INR 1.84 (0.83-1.09) H 11/25/18 17:25 Problem List - Problems (1) Acute kidney injury Code(s): N17.9 - ACUTE KIDNEY FAILURE, UNSPECIFIED (2) Acute on chronic diastolic CHF (congestive heart failure) Code(s): I50.33 - ACUTE ON CHRONIC DIASTOLIC (CONGESTIVE) HEART FAILURE (3) CHF exacerbation Code(s): I50.9 - HEART FAILURE, UNSPECIFIED Qualifiers: Heart failure type: unspecified Qualified Code(s): I50.9 - Heart failure, unspecified Assessment/Plan Current Medications Generic Name Dose Route Start Last Admin Trade Name Freq PRN Reason Stop Dose Admin Acetaminophen 650 mg 11/26/18 14:06 11/27/18 17:52 Tylenol - PO 650 mg Q8H PRN Administration PAIN/FEVER Albuterol Sulfate 1 amp 11/25/18 20:11 11/29/18 08:05 Ventolin 0.083% Nebulizer Soln - NEB 1 amp Q8H PRN Administration SHORT OF BREATH/WHEEZING Atorvastatin Calcium 40 mg 11/25/18 22:00 11/28/18 21:40 Lipitor - PO 40 mg HS [facility] Administration Budesonide/Formoterol Fumarate 2 puff 11/25/18 22:00 11/29/18 12:04 Symbicort 160/4.5mcg - IH 2 puff BID [facility] Administration Dabigatran 150 mg 11/25/18 22:00 11/29/18 12:04 Pradaxa - PO 150 mg BID [facility] Administration Digoxin 0.25 mg 11/26/18 10:00 11/29/18 12:04 Lanoxin - PO 0.25 mg DAILY [facility] Administration Furosemide 40 mg 11/26/18 10:00 11/29/18 12:04 Lasix Injection - IVPUSH 40 mg DAILY [facility] Administration Insulin Aspart 1 vial 11/25/18 22:00 11/29/18 12:43 Novolog Vial Sliding Scale - SQ Not Given ACHS [facility] Protocol Insulin Detemir 15 units 11/25/18 22:00 11/29/18 06:27 Levemir Vial SQ 15 unit BID@0700,2200 [facility] Administration Isosorbide Mononitrate 60 mg 11/26/18 10:00 11/29/18 12:04 Imdur - PO 60 mg DAILY [facility] Administration Metoprolol Succinate 50 mg 11/26/18 10:00 11/29/18 12:05 Toprol Xl - PO 50 mg DAILY [facility] Administration Montelukast Sodium 10 mg 11/25/18 22:00 11/28/18 21:40 Singulair - PO 10 mg HS [facility] Administration Prednisone 30 mg 11/28/18 10:00 11/29/18 12:04 Deltasone - PO 30 mg DAILY [facility] Administration Tiotropium [place] 2 puff 11/26/18 10:00 11/29/18 12:04 Spiriva Respimat IH 2 puff DAILY [facility] Administration Impression 1. CHF 2. hyponatremia 3. fluid overload 4. asthma 5. a-fib 6. DM 7. td Plan - renal function is improving - increase lasix to bid, he will get a second dose today - monitor volume status - restrict fluid intake - hold chirag - check osm and urine lytes - discussed diet with pt
--- NOTE | 2018-11-29 14:54 | PN ---
Progress Note, Physician Chief Complaint: The patient had chest discomfort yesterday. He reports no recurrent chest pain. But he still has SOB and leg edema with itchiness. Tele shows atrial fibrillation in the mid 70s. Episodes of slow afib in 40s noted. NSVT, up to 6 beats. Short pauses, less than 3 seconds. History of Present Illness: 63 year old male with a PMHx of HTN, DM, HLD, mild non-obstructive CAD from cardiac cath on 07/25/2016 at [facility], systolic CHF secondary to non-ischemic cardiomyopathy with known low EF 30-35% 08/2018, chronic afib (on pradaxa), COPD , admitted 11/25/2018 CHF exacerbation with massive weeping edema. Medication non adherence and dietary indiscretion noted. He had chest discomfort 11/28/2018 without ECG changes. Still fluid overload and dyspnea. - Current Medication List Current Medications: Active Medications Acetaminophen (Tylenol -) 650 mg PO Q8H PRN PRN Reason: PAIN/FEVER Last Admin: 11/27/18 17:52 Dose: 650 mg Albuterol Sulfate (Ventolin 0.083% Nebulizer Soln -) 1 amp NEB Q8H PRN PRN Reason: SHORT OF BREATH/WHEEZING Last Admin: 11/29/18 08:05 Dose: 1 amp Atorvastatin Calcium (Lipitor -) 40 mg PO HS [facility] Last Admin: 11/28/18 21:40 Dose: 40 mg Budesonide/Formoterol Fumarate (Symbicort 160/4.5mcg -) 2 puff IH BID [facility] Last Admin: 11/29/18 12:04 Dose: 2 puff Dabigatran (Pradaxa -) 150 mg PO BID [facility] Last Admin: 11/29/18 12:04 Dose: 150 mg Digoxin (Lanoxin -) 0.25 mg PO DAILY [facility] Last Admin: 11/29/18 12:04 Dose: 0.25 mg Furosemide (Lasix Injection -) 40 mg IVPUSH BID@0600,1400 [facility] Insulin Aspart (Novolog Vial Sliding Scale -) 1 vial SQ [facility]; Protocol Last Admin: 11/29/18 12:43 Dose: Not Given Insulin Detemir (Levemir Vial) 15 units SQ BID@0700,2200 [facility] Last Admin: 11/29/18 06:27 Dose: 15 unit Isosorbide Mononitrate (Imdur -) 60 mg PO DAILY [facility] Last Admin: 11/29/18 12:04 Dose: 60 mg Metoprolol Succinate (Toprol Xl -) 50 mg PO DAILY [facility] Last Admin: 11/29/18 12:05 Dose: 50 mg Montelukast Sodium (Singulair -) 10 mg PO HS [facility] Last Admin: 11/28/18 21:40 Dose: 10 mg Prednisone (Deltasone -) 30 mg PO DAILY [facility] Last Admin: 11/29/18 12:04 Dose: 30 mg Tiotropium [place] (Spiriva Respimat) 2 puff IH DAILY [facility] Last Admin: 11/29/18 12:04 Dose: 2 puff - Objective Vital Signs: Vital Signs Temperature 97.9 F 11/29/18 05:00 Pulse Rate 82 11/29/18 12:04 Respiratory Rate 18 11/29/18 09:00 Blood Pressure 121/76 11/29/18 09:00 O2 Sat by Pulse Oximetry (%) 96 11/29/18 09:00 General: Well developed. Chronic ill. No acute distress. Head: Normocephalic. Atraumatic, Eyes: PERRLA, EOMI. Sclerae anicteric. Conjunctivae clear. Neck: Supple. (+) JVD. No bruits. Heart: Normal S1, S2: Irregular rhythm and rate. No murmur. No gallop or rub. Lungs: Symmetrical poor air entry. Bibasilar crackles. No wheezing or rhonchi. Abdomen: Soft. Bowel sound positive. Non tender. No masses. Extremities: Bilateral venous stasis. 2-3+ edema. No clubbing or cyanosis. Labs: CBC, BMP 11/29/18 06:38 11/29/18 06:38 INR, PTT INR 1.84 (0.83-1.09) H 11/25/18 17:25 Assessment/Plan 63 year old male with a PMHx of HTN, DM, HLD, mild non-obstructive CAD from cardiac cath on 07/25/2016 at [facility], systolic CHF secondary to non-ischemic cardiomyopathy with known low EF 30-35% 08/2018, chronic afib (on pradaxa), COPD , admitted 11/25/2018 CHF exacerbation with massive weeping edema. Medication non adherence and dietary indiscretion noted. He had chest discomfort 11/28/2018 without ECG changes. Still fluid overload and dyspnea. 1) Acute on chronic systolic CHF secondary to non-ischemic CMP: Repeat Echo 11/26 with severe LV function and severe MR Hypervolemic hyponatremia noted. Free water restriction Increase IV Lasix to 60 mg q12H. Continue metoprolol succinate 50 mg daily. Add Losartan 25 mg daily. Daily I's/O's/Wt's/Lytes Monitor renal function. Renal consult appreciated. AICD implantation should be considered in near future. 2) Chronic atrial fibrillation: Ventricular rate controlled with episodes of slow afib and short pauses. Continue metoprolol succinate 50 mg daily. Decrease digoxin to 0.125 mg daily. Change Pradaxa to Eliquis 5 mg BID, anticipating renal function worsens in future. Will follow with you.
--- NOTE | 2018-11-29 14:54 | PN ---
Progress Note (short form) - Note Progress Note: PULMONARY Still with shortness of breath and leg swelling. Vital Signs Period Temp Pulse Resp BP Sys/Uribe Pulse Ox Last 24 Hr 97.3 F-98.1 F 72-82 - 121-132/63-92 96-96 Intake & Output 11/26/18 11/27/18 11/28/18 11/29/18 23:59 23:59 23:59 23:59 Intake Total 1110 480 490 Output Total 600 1400 2450 975 Balance 510 -920 -2450 -485 Weight 112.604 kg 113.852 kg 114.033 kg 113.035 kg Gen: less tachypneic with speaking Heart: RRR Lung: scattered rhonchi Abd: softly distended, nontender Ext: + edema CBC, BMP 11/29/18 06:38 11/29/18 06:38 Active Medications Acetaminophen (Tylenol -) 650 mg PO Q8H PRN PRN Reason: PAIN/FEVER Last Admin: 11/27/18 17:52 Dose: 650 mg Albuterol Sulfate (Ventolin 0.083% Nebulizer Soln -) 1 amp NEB Q8H PRN PRN Reason: SHORT OF BREATH/WHEEZING Last Admin: 11/29/18 08:05 Dose: 1 amp Atorvastatin Calcium (Lipitor -) 40 mg PO HS [facility] Last Admin: 11/28/18 21:40 Dose: 40 mg Budesonide/Formoterol Fumarate (Symbicort 160/4.5mcg -) 2 puff IH BID [facility] Last Admin: 11/29/18 12:04 Dose: 2 puff Dabigatran (Pradaxa -) 150 mg PO BID [facility] Last Admin: 11/29/18 12:04 Dose: 150 mg Digoxin (Lanoxin -) 0.25 mg PO DAILY [facility] Last Admin: 11/29/18 12:04 Dose: 0.25 mg Furosemide (Lasix Injection -) 40 mg IVPUSH BID@0600,1400 [facility] Insulin Aspart (Novolog Vial Sliding Scale -) 1 vial SQ [facility]; Protocol Last Admin: 11/29/18 12:43 Dose: Not Given Insulin Detemir (Levemir Vial) 15 units SQ BID@0700,2200 [facility] Last Admin: 11/29/18 06:27 Dose: 15 unit Isosorbide Mononitrate (Imdur -) 60 mg PO DAILY [facility] Last Admin: 11/29/18 12:04 Dose: 60 mg Metoprolol Succinate (Toprol Xl -) 50 mg PO DAILY [facility] Last Admin: 11/29/18 12:05 Dose: 50 mg Montelukast Sodium (Singulair -) 10 mg PO HS [facility] Last Admin: 11/28/18 21:40 Dose: 10 mg Prednisone (Deltasone -) 30 mg PO DAILY [facility] Last Admin: 11/29/18 12:04 Dose: 30 mg Tiotropium [place] (Spiriva Respimat) 2 puff IH DAILY [facility] Last Admin: 11/29/18 12:04 Dose: 2 puff A/P Acute on Chronic Systolic Heart Failure CAD s/p stents Atrial Fibrillation Pulmonary HTN COPD Likely JUAN CARLOS Acute Kidney Injury HTN DM - continue lasix - monitor urine output, creatinine - daily weights - rate controlled - continue anticoagulation - rapid taper off prednisone - inhaled bronchodilators - O2 to keep SpO2 >90%
--- NOTE | 2018-11-29 15:26 | PN ---
Progress Note, Physician Chief Complaint: Acute on chronic CHF Chest pain - Current Medication List Current Medications: Active Medications Acetaminophen (Tylenol -) 650 mg PO Q8H PRN PRN Reason: PAIN/FEVER Last Admin: 11/27/18 17:52 Dose: 650 mg Albuterol Sulfate (Ventolin 0.083% Nebulizer Soln -) 1 amp NEB Q8H PRN PRN Reason: SHORT OF BREATH/WHEEZING Last Admin: 11/29/18 08:05 Dose: 1 amp Atorvastatin Calcium (Lipitor -) 40 mg PO [facility] Last Admin: 11/28/18 21:40 Dose: 40 mg Budesonide/Formoterol Fumarate (Symbicort 160/4.5mcg -) 2 puff IH BID [facility] Last Admin: 11/29/18 12:04 Dose: 2 puff Dabigatran (Pradaxa -) 150 mg PO BID [facility] Last Admin: 11/29/18 12:04 Dose: 150 mg Digoxin (Lanoxin -) 0.25 mg PO DAILY [facility] Last Admin: 11/29/18 12:04 Dose: 0.25 mg Furosemide (Lasix Injection -) 40 mg IVPUSH BID@0600,1400 [facility] Insulin Aspart (Novolog Vial Sliding Scale -) 1 vial SQ [facility]; Protocol Last Admin: 11/29/18 12:43 Dose: Not Given Insulin Detemir (Levemir Vial) 15 units SQ BID@0700,2200 [facility] Last Admin: 11/29/18 06:27 Dose: 15 unit Isosorbide Mononitrate (Imdur -) 60 mg PO DAILY [facility] Last Admin: 11/29/18 12:04 Dose: 60 mg Metoprolol Succinate (Toprol Xl -) 50 mg PO DAILY [facility] Last Admin: 11/29/18 12:05 Dose: 50 mg Montelukast Sodium (Singulair -) 10 mg PO [facility] Last Admin: 11/28/18 21:40 Dose: 10 mg Prednisone (Deltasone -) 20 mg PO DAILY [facility] Tiotropium [place] (Spiriva Respimat) 2 puff IH DAILY [facility] Last Admin: 11/29/18 12:04 Dose: 2 puff - Objective Vital Signs: Vital Signs Temperature 97.9 F 11/29/18 05:00 Pulse Rate 82 11/29/18 12:04 Respiratory Rate 18 11/29/18 09:00 Blood Pressure 121/76 11/29/18 09:00 O2 Sat by Pulse Oximetry (%) 96 11/29/18 09:00 Labs: CBC, BMP 11/29/18 06:38 11/29/18 06:38 INR, PTT INR 1.84 (0.83-1.09) H 11/25/18 17:25
[2018-11-29] MEDS: ACETAMINOPHEN 325 MG TABLET (FP) PO PRN (17:44)
[2018-11-29] MEDS: ATORVASTATIN CA 40 MG TABLET (FP) PO SCH (21:39)
[2018-11-29] MEDS: MONTELUKAST NA 10 MG TABLET PO SCH (21:39)
[2018-11-30] MEDS ORDERED: INSULIN (NOVOLOG) ASPART 100 UNITS/ML 10ML VIAL ONE (05:53)
[2018-11-30] MEDS: FUROSEMIDE 40 MG/4 ML INJECTABLE VIAL IVPUSH SCH ×2 (06:02→15:44)
[2018-11-30] MEDS: INSULIN (LEVEMIR) 100 UNITS/ML UNITS SQ SCH ×2 (06:03→22:28)
[2018-11-30] MEDS: INSULIN SLIDING SCALE (NOVOLOG) 1 VIAL SQ SCH ×4 (06:07→22:27)
[2018-11-30 08:10] LABS: ALBUMIN 2.9 g/dl (3.4-5.0); ALK PHOS 469 U/L (45-117); ANION GAP 8 MMOL/L (8-16); BILIRUBIN,TOTAL 1.8 mg/dL (0.2-1); BLOOD UREA NITROGEN 49 mg/dL (7-18); CALCIUM 8.7 mg/dL (8.5-10.1); CHLORIDE 92 mmol/L (98-107); CO2 33 mmol/L (21-32); CREATININE 1.1 mg/dL (0.55-1.3); GLUCOSE,RANDOM 100 mg/dL (74-106); POTASSIUM 4.8 mmol/L (3.5-5.1); SGOT/AST 94 U/L (15-37); SGPT/ALT 169 U/L (13-61); SODIUM 132 mmol/L (136-145)
[2018-11-30] MEDS: TIOTROPIUM BROMIDE 2.5 MCG (SPIRIVA) RESPIMAT INHALER IH SCH (10:00)
[2018-11-30] MEDS: ISOSORBIDE MONONITRATE 60 MG TAB.SR.24H (FP) PO SCH (10:08)
[2018-11-30] MEDS: DABIGATRAN ETEXILATE MESYLATE 150 MG CAPSULE PO SCH ×2 (10:08→22:27)
[2018-11-30] MEDS: DIGOXIN 0.25 MG TABLET (FP) PO SCH (10:08)
[2018-11-30] MEDS: predniSONE 20 MG TABLET (UD) PO SCH (10:08)
[2018-11-30] MEDS: BUDESONIDE/FORMETEROL FUMARATE 160/4.5 mcg INHALER IH SCH ×2 (10:41→22:43)
--- NOTE | 2018-11-30 12:05 | PN ---
Progress Note (short form) - Note Progress Note: PULMONARY Still with shortness of breath and leg swelling/pain. Vital Signs Period Temp Pulse Resp BP Sys/Uribe Pulse Ox Last 24 Hr 97.7 F-98.1 F 66-78 18-20 123-144/78-89 97-98 Gen: less tachypneic with speaking Heart: RRR Lung: scattered rhonchi Abd: softly distended, nontender Ext: + edema CBC, BMP 11/29/18 06:38 11/30/18 07:00 Active Medications Acetaminophen (Tylenol -) 650 mg PO Q8H PRN PRN Reason: PAIN/FEVER Last Admin: 11/29/18 17:44 Dose: 650 mg Albuterol Sulfate (Ventolin 0.083% Nebulizer Soln -) 1 amp NEB Q8H PRN PRN Reason: SHORT OF BREATH/WHEEZING Last Admin: 11/29/18 08:05 Dose: 1 amp Atorvastatin Calcium (Lipitor -) 40 mg PO HS [facility] Last Admin: 11/29/18 21:39 Dose: 40 mg Budesonide/Formoterol Fumarate (Symbicort 160/4.5mcg -) 2 puff IH BID [facility] Last Admin: 11/29/18 21:39 Dose: 2 puff Dabigatran (Pradaxa -) 150 mg PO BID [facility] Last Admin: 11/30/18 10:08 Dose: 150 mg Digoxin (Lanoxin -) 0.25 mg PO DAILY [facility] Last Admin: 11/30/18 10:08 Dose: 0.25 mg Furosemide (Lasix Injection -) 40 mg IVPUSH BID@0600,1400 [facility] Last Admin: 11/30/18 06:02 Dose: 40 mg Insulin Aspart (Novolog Vial Sliding Scale -) 1 vial SQ ACHS [facility]; Protocol Last Admin: 11/30/18 06:07 Dose: Not Given Insulin Detemir (Levemir Vial) 15 units SQ BID@0700,2200 [facility] Last Admin: 11/30/18 06:03 Dose: 15 unit Isosorbide Mononitrate (Imdur -) 60 mg PO DAILY [facility] Last Admin: 11/30/18 10:08 Dose: 60 mg Metoprolol Succinate (Toprol Xl -) 50 mg PO DAILY [facility] Last Admin: 11/30/18 10:08 Dose: 50 mg Montelukast Sodium (Singulair -) 10 mg PO HS [facility] Last Admin: 11/29/18 21:39 Dose: 10 mg Prednisone (Deltasone -) 20 mg PO DAILY [facility] Last Admin: 11/30/18 10:08 Dose: 20 mg Tiotropium [place] (Spiriva Respimat) 2 puff IH DAILY [facility] Last Admin: 11/29/18 12:04 Dose: 2 puff A/P Acute on Chronic Systolic Heart Failure CAD s/p stents Atrial Fibrillation Pulmonary HTN COPD Likely JUAN CARLOS Acute Kidney Injury HTN DM - continue lasix - monitor urine output, creatinine - daily weights - rate controlled - continue anticoagulation - rapid taper off prednisone - inhaled bronchodilators - O2 to keep SpO2 >90%
[2018-11-30] MEDS ORDERED: MINERAL OIL/PETROLAT/WATER TOPICAL CREAM 454 GM JAR TP PRN (12:07)
[2018-11-30] MEDS ORDERED: hydrOXYzine HCL 25 MG TABLET (FP) PO PRN (14:39)
--- NOTE | 2018-11-30 15:02 | PN ---
Progress Note, Physician Chief Complaint: Acute on chronic CHF Chest pain History of Present Illness: c/o itching which is chronic Lot of social issues- doesn't have access to food, lives in boarding house, where he has 1 room with no space in it. Unable to cook for himself due to lack of accessible kitchen. Eats whatever he can find accessible On IV lasix Still has SOB and cough - Current Medication List Current Medications: Active Medications Acetaminophen (Tylenol -) 650 mg PO Q8H PRN PRN Reason: PAIN/FEVER Last Admin: 11/29/18 17:44 Dose: 650 mg Albuterol Sulfate (Ventolin 0.083% Nebulizer Soln -) 1 amp NEB Q8H PRN PRN Reason: SHORT OF BREATH/WHEEZING Last Admin: 11/29/18 08:05 Dose: 1 amp Atorvastatin Calcium (Lipitor -) 40 mg PO HS [facility] Last Admin: 11/29/18 21:39 Dose: 40 mg Budesonide/Formoterol Fumarate (Symbicort 160/4.5mcg -) 2 puff IH BID [facility] Last Admin: 11/29/18 21:39 Dose: 2 puff Dabigatran (Pradaxa -) 150 mg PO BID [facility] Last Admin: 11/30/18 10:08 Dose: 150 mg Digoxin (Lanoxin -) 0.25 mg PO DAILY [facility] Last Admin: 11/30/18 10:08 Dose: 0.25 mg Furosemide (Lasix Injection -) 40 mg IVPUSH BID@0600,1400 [facility] Last Admin: 11/30/18 06:02 Dose: 40 mg Hydroxyzine HCl (Atarax -) 25 mg PO Q6H PRN PRN Reason: FOR ITCHING Insulin Aspart (Novolog Vial Sliding Scale -) 1 vial SQ [facility]; Protocol Last Admin: 11/30/18 06:07 Dose: Not Given Insulin Detemir (Levemir Vial) 15 units SQ BID@0700,2200 [facility] Last Admin: 11/30/18 06:03 Dose: 15 unit Isosorbide Mononitrate (Imdur -) 60 mg PO DAILY [facility] Last Admin: 11/30/18 10:08 Dose: 60 mg Metoprolol Succinate (Toprol Xl -) 50 mg PO DAILY [facility] Last Admin: 11/30/18 10:08 Dose: 50 mg Montelukast Sodium (Singulair -) 10 mg PO HS [facility] Last Admin: 11/29/18 21:39 Dose: 10 mg Multi-Ingredient Lotion (Eucerin (Large Jar) -) 1 applic TP BID PRN PRN Reason: DRY SKIN Prednisone (Deltasone -) 20 mg PO DAILY [facility] Last Admin: 11/30/18 10:08 Dose: 20 mg Tiotropium [place] (Spiriva Respimat) 2 puff IH DAILY [facility] Last Admin: 11/29/18 12:04 Dose: 2 puff - Objective Vital Signs: Vital Signs Temperature 98.1 F 11/30/18 07:00 Pulse Rate 78 11/30/18 10:08 Respiratory Rate 20 11/30/18 09:00 Blood Pressure 131/89 11/30/18 07:00 O2 Sat by Pulse Oximetry (%) 97 11/30/18 09:00 Constitutional: Yes: Well Nourished, No Distress, Calm Cardiovascular: Yes: Regular Rate and Rhythm Respiratory: Yes: Rales (BLLE), SOB on Exertion Gastrointestinal: Yes: Normal Bowel Sounds, Soft, Abdomen, Obese Genitourinary: Yes: WNL Musculoskeletal: Yes: Muscle Weakness Edema: Yes Edema: LLE: 3+, RLE: 3+ Peripheral Pulses WNL: Yes Neurological: Yes: Alert, Oriented Psychiatric: Yes: Alert, Oriented Labs: CBC, BMP 11/29/18 06:38 11/30/18 07:00 INR, PTT INR 1.84 (0.83-1.09) H 11/25/18 17:25 Problem List - Problems (1) Acute on chronic diastolic CHF (congestive heart failure) Assessment/Plan: -Pulmonary and cardiology on board -IV diuresis -I&O's -daily weights -low sodium diet Code(s): I50.33 - ACUTE ON CHRONIC DIASTOLIC (CONGESTIVE) HEART FAILURE (2) Elevated LFTs Assessment/Plan: -likely 2/2 to portal vein congestion -Will get GI consult Code(s): R94.5 - ABNORMAL RESULTS OF LIVER FUNCTION STUDIES (3) Atrial fibrillation Assessment/Plan: -On pradaxa -rate controlled Code(s): I48.91 - UNSPECIFIED ATRIAL FIBRILLATION Qualifiers: Atrial fibrillation type: persistent Qualified Code(s): I48.1 - Persistent atrial fibrillation (4) Hyperglycemia, drug-induced Assessment/Plan: -repeat A1c -BGM AC HS -Novolog+Levemir Code(s): R73.9 - HYPERGLYCEMIA, UNSPECIFIED; T50.905A - ADVERSE EFFECT OF UNSP DRUG/MEDS/BIOL SUBST, INIT Assessment/Plan see problem list Physical therapy
--- NOTE | 2018-11-30 18:06 | PN ---
Progress Note, Physician History of Present Illness: Pt seen and examined at bedside. He feels that his breathing is improved but he complains of lower ext edema. - Current Medication List Current Medications: Active Medications Acetaminophen (Tylenol -) 650 mg PO Q8H PRN PRN Reason: PAIN/FEVER Last Admin: 11/29/18 17:44 Dose: 650 mg Albuterol Sulfate (Ventolin 0.083% Nebulizer Soln -) 1 amp NEB Q8H PRN PRN Reason: SHORT OF BREATH/WHEEZING Last Admin: 11/29/18 08:05 Dose: 1 amp Atorvastatin Calcium (Lipitor -) 40 mg PO HS [facility] Last Admin: 11/29/18 21:39 Dose: 40 mg Budesonide/Formoterol Fumarate (Symbicort 160/4.5mcg -) 2 puff IH BID [facility] Last Admin: 11/30/18 10:41 Dose: 2 puff Dabigatran (Pradaxa -) 150 mg PO BID [facility] Last Admin: 11/30/18 10:08 Dose: 150 mg Digoxin (Lanoxin -) 0.25 mg PO DAILY [facility] Last Admin: 11/30/18 10:08 Dose: 0.25 mg Furosemide (Lasix Injection -) 40 mg IVPUSH BID@0600,1400 [facility] Last Admin: 11/30/18 15:44 Dose: 40 mg Hydroxyzine HCl (Atarax -) 25 mg PO Q6H PRN PRN Reason: FOR ITCHING Insulin Aspart (Novolog Vial Sliding Scale -) 1 vial SQ ACHS [facility]; Protocol Last Admin: 11/30/18 17:41 Dose: Not Given Insulin Detemir (Levemir Vial) 15 units SQ BID@0700,2200 [facility] Last Admin: 11/30/18 06:03 Dose: 15 unit Isosorbide Mononitrate (Imdur -) 60 mg PO DAILY [facility] Last Admin: 11/30/18 10:08 Dose: 60 mg Metoprolol Succinate (Toprol Xl -) 50 mg PO DAILY [facility] Last Admin: 11/30/18 10:08 Dose: 50 mg Montelukast Sodium (Singulair -) 10 mg PO HS [facility] Last Admin: 11/29/18 21:39 Dose: 10 mg Multi-Ingredient Lotion (Eucerin (Large Jar) -) 1 applic TP BID PRN PRN Reason: DRY SKIN Prednisone (Deltasone -) 20 mg PO DAILY [facility] Last Admin: 11/30/18 10:08 Dose: 20 mg Tiotropium [place] (Spiriva Respimat) 2 puff IH DAILY [facility] Last Admin: 11/30/18 10:00 Dose: 2 puff - Objective Vital Signs: Vital Signs Temperature 98.2 F 11/30/18 17:53 Pulse Rate 85 11/30/18 17:53 Respiratory Rate 24 H 11/30/18 17:53 Blood Pressure 110/64 11/30/18 17:53 O2 Sat by Pulse Oximetry (%) 97 11/30/18 09:00 Constitutional: Yes: Calm HENT: Yes: WNL Cardiovascular: Yes: S1, S2 Respiratory: Yes: CTA Bilaterally Gastrointestinal: Yes: Soft, Abdomen, Obese Genitourinary: Yes: WNL Musculoskeletal: Yes: WNL Edema: Yes Edema: LLE: 3+, RLE: 3+ Neurological: Yes: Oriented Psychiatric: Yes: Oriented Labs: CBC, BMP 11/29/18 06:38 11/30/18 07:00 INR, PTT INR 1.84 (0.83-1.09) H 11/25/18 17:25 Problem List - Problems (1) Acute kidney injury Code(s): N17.9 - ACUTE KIDNEY FAILURE, UNSPECIFIED (2) Acute on chronic diastolic CHF (congestive heart failure) Code(s): I50.33 - ACUTE ON CHRONIC DIASTOLIC (CONGESTIVE) HEART FAILURE (3) CHF exacerbation Code(s): I50.9 - HEART FAILURE, UNSPECIFIED Qualifiers: Heart failure type: unspecified Qualified Code(s): I50.9 - Heart failure, unspecified Assessment/Plan Current Medications Generic Name Dose Route Start Last Admin Trade Name Freq PRN Reason Stop Dose Admin Acetaminophen 650 mg 11/26/18 14:06 11/29/18 17:44 Tylenol - PO 650 mg Q8H PRN Administration PAIN/FEVER Albuterol Sulfate 1 amp 11/25/18 20:11 11/29/18 08:05 Ventolin 0.083% Nebulizer Soln - NEB 1 amp Q8H PRN Administration SHORT OF BREATH/WHEEZING Atorvastatin Calcium 40 mg 11/25/18 22:00 11/29/18 21:39 Lipitor - PO 40 mg HS [facility] Administration Budesonide/Formoterol Fumarate 2 puff 11/25/18 22:00 11/30/18 10:41 Symbicort 160/4.5mcg - IH 2 puff BID [facility] Administration Dabigatran 150 mg 11/25/18 22:00 11/30/18 10:08 Pradaxa - PO 150 mg BID [facility] Administration Digoxin 0.25 mg 11/26/18 10:00 11/30/18 10:08 Lanoxin - PO 0.25 mg DAILY [facility] Administration Furosemide 40 mg 11/29/18 14:00 11/30/18 15:44 Lasix Injection - IVPUSH 40 mg BID@0600,1400 [facility] Administration Hydroxyzine HCl 25 mg 11/30/18 14:39 Atarax - PO Q6H PRN FOR ITCHING Insulin Aspart 1 vial 11/25/18 22:00 11/30/18 17:41 Novolog Vial Sliding Scale - SQ Not Given ACHS [facility] Protocol Insulin Detemir 15 units 11/25/18 22:00 11/30/18 06:03 Levemir Vial SQ 15 unit BID@0700,2200 [facility] Administration Isosorbide Mononitrate 60 mg 11/26/18 10:00 11/30/18 10:08 Imdur - PO 60 mg DAILY [facility] Administration Metoprolol Succinate 50 mg 11/26/18 10:00 11/30/18 10:08 Toprol Xl - PO 50 mg DAILY [facility] Administration Montelukast Sodium 10 mg 11/25/18 22:00 11/29/18 21:39 Singulair - PO 10 mg HS [facility] Administration Multi-Ingredient Lotion 1 applic 11/30/18 12:07 Eucerin (Large Jar) - TP BID PRN DRY SKIN Prednisone 20 mg 11/30/18 10:00 11/30/18 10:08 Deltasone - PO 20 mg DAILY [facility] Administration Tiotropium [place] 2 puff 11/26/18 10:00 11/30/18 10:00 Spiriva Respimat IH 2 puff DAILY [facility] Administration Impression 1. CHF 2. hyponatremia 3. fluid overload 4. asthma 5. a-fib 6. DM 7. td Plan - cont lasix - restrict fluid intake - taper steroids - pt still with significant edema - monitor volume status - hold chirag - discussed diet with pt
--- NOTE | 2018-11-30 19:33 | EKG ---
Test Reason : Blood Pressure : / mmHG Vent. Rate : 079 BPM Atrial Rate : 159 BPM P-R Int : 000 ms QRS Dur : 090 ms QT Int : 376 ms P-R-T Axes : 000 -01 218 degrees QTc Int : 431 ms ATRIAL FIBRILLATION ABNORMAL ECG WHEN COMPARED WITH ECG OF 25-NOV-2018 21:51, Confirmed by MAURIZIO POWELL, KELLEN ([id number]) on 11/30/2018 7:33:02 PM Referred By: Confirmed By:KELLEN STEVEN MD
[2018-11-30] MEDS: MONTELUKAST NA 10 MG TABLET PO SCH (22:27)
[2018-11-30] MEDS: ATORVASTATIN CA 40 MG TABLET (FP) PO SCH (22:27)
[2018-12-01] MEDS: INSULIN SLIDING SCALE (NOVOLOG) 1 VIAL SQ SCH ×4 (06:26→21:28)
[2018-12-01] MEDS: FUROSEMIDE 40 MG/4 ML INJECTABLE VIAL IVPUSH SCH ×2 (06:34→15:08)
[2018-12-01] MEDS: INSULIN (LEVEMIR) 100 UNITS/ML UNITS SQ SCH ×2 (07:06→21:28)
[2018-12-01 08:19] LABS: ALBUMIN 2.6 g/dl (3.4-5.0); ALK PHOS 421 U/L (45-117); ANION GAP 8 MMOL/L (8-16); BILIRUBIN,TOTAL 1.6 mg/dL (0.2-1); BLOOD UREA NITROGEN 47 mg/dL (7-18); CALCIUM 8.2 mg/dL (8.5-10.1); CHLORIDE 91 mmol/L (98-107); CO2 35 mmol/L (21-32); CREATININE 1.1 mg/dL (0.55-1.3); GLUCOSE,RANDOM 94 mg/dL (74-106); POTASSIUM 4.1 mmol/L (3.5-5.1); SGOT/AST 72 U/L (15-37); SGPT/ALT 135 U/L (13-61); SODIUM 134 mmol/L (136-145); TOT PROT 6.1 g/dl (6.4-8.2)
--- NOTE | 2018-12-01 10:00 | PN ---
Progress Note, Physician History of Present Illness: seen and examined today in [facility]. states he is urinating a lot. still has significant b/l LE edema. - Current Medication List Current Medications: Active Medications Acetaminophen (Tylenol -) 650 mg PO Q8H PRN PRN Reason: PAIN/FEVER Last Admin: 11/29/18 17:44 Dose: 650 mg Albuterol Sulfate (Ventolin 0.083% Nebulizer Soln -) 1 amp NEB Q8H PRN PRN Reason: SHORT OF BREATH/WHEEZING Last Admin: 11/29/18 08:05 Dose: 1 amp Atorvastatin Calcium (Lipitor -) 40 mg PO HS [facility] Last Admin: 11/30/18 22:27 Dose: 40 mg Budesonide/Formoterol Fumarate (Symbicort 160/4.5mcg -) 2 puff IH BID [facility] Last Admin: 11/30/18 22:43 Dose: 2 puff Dabigatran (Pradaxa -) 150 mg PO BID [facility] Last Admin: 11/30/18 22:27 Dose: 150 mg Digoxin (Lanoxin -) 0.25 mg PO DAILY [facility] Last Admin: 11/30/18 10:08 Dose: 0.25 mg Furosemide (Lasix Injection -) 40 mg IVPUSH BID@0600,1400 [facility] Last Admin: 12/01/18 06:34 Dose: 40 mg Hydroxyzine HCl (Atarax -) 25 mg PO Q6H PRN PRN Reason: FOR ITCHING Insulin Aspart (Novolog Vial Sliding Scale -) 1 vial SQ ACHS [facility]; Protocol Last Admin: 12/01/18 06:26 Dose: Not Given Insulin Detemir (Levemir Vial) 15 units SQ BID@0700,2200 [facility] Last Admin: 12/01/18 07:06 Dose: 15 unit Isosorbide Mononitrate (Imdur -) 60 mg PO DAILY [facility] Last Admin: 11/30/18 10:08 Dose: 60 mg Metoprolol Succinate (Toprol Xl -) 50 mg PO DAILY [facility] Last Admin: 11/30/18 10:08 Dose: 50 mg Montelukast Sodium (Singulair -) 10 mg PO HS [facility] Last Admin: 11/30/18 22:27 Dose: 10 mg Multi-Ingredient Lotion (Eucerin (Large Jar) -) 1 applic TP BID PRN PRN Reason: DRY SKIN Prednisone (Deltasone -) 20 mg PO DAILY [facility] Last Admin: 11/30/18 10:08 Dose: 20 mg Tiotropium [place] (Spiriva Respimat) 2 puff IH DAILY [facility] Last Admin: 11/30/18 10:00 Dose: 2 puff - Objective Vital Signs: Vital Signs Temperature 97.5 F L 12/01/18 06:00 Pulse Rate 65 12/01/18 06:00 Respiratory Rate 18 12/01/18 06:00 Blood Pressure 137/75 12/01/18 06:00 O2 Sat by Pulse Oximetry (%) 97 11/30/18 21:00 Constitutional: Yes: No Distress, Calm Eyes: Yes: Conjunctiva Clear, EOM Intact HENT: Yes: Atraumatic, Normocephalic Neck: Yes: Supple, Trachea Midline Cardiovascular: Yes: Pulse Irregular, S1, S2. No: Regular Rate and Rhythm, Bradycardia, Tachycardia, Bruit, JVD, Gallop, Murmur, Rub, S3, S4, Varicosities Respiratory: Yes: Regular, Diminished, Rales. No: Rhonchi, SOB, Wheezes Gastrointestinal: Yes: Normal Bowel Sounds, Soft. No: Distention, Tenderness Musculoskeletal: Yes: WNL Extremities: Yes: WNL Edema: Yes Edema: LLE: 2+, RLE: 2+ Peripheral Pulses WNL: Yes Peripheral Pulses: Left Doralis Pedis: 2+, Right Dorsalis Pedis: 2+ Neurological: Yes: Alert, Oriented Psychiatric: Yes: Alert, Oriented Labs: CBC, BMP 11/29/18 06:38 12/01/18 05:50 INR, PTT INR 1.84 (0.83-1.09) H 11/25/18 17:25 - ....Imaging Chest X-ray: Report Reviewed, Image Reviewed EKG: Report Reviewed, Image Reviewed Other: Report Reviewed, Image Reviewed (tele-afib, HR adequate, short pauses, periods of bradycardia, pvcs) Assessment/Plan 63 year old male with a PMHx of HTN, DM, HLD, mild non-obstructive CAD from cardiac cath on 07/25/2016 at [facility], systolic CHF secondary to non-ischemic cardiomyopathy with known low EF 30-35% 08/2018, chronic afib (on pradaxa), COPD , admitted 11/25/2018 CHF exacerbation with massive weeping edema. Medication non adherence and dietary indiscretion noted. He had chest discomfort 11/28/2018 without ECG changes. 1) Acute on chronic systolic CHF secondary to non-ischemic CMP: Repeat Echo 11/26 with severe LV function and severe MR -still volume overloaded but improving -significant urine output with O>I, weight trending down, bun/creat trending down -can cont Lasix 40mg IV BID for now -fluid restriction -Continue metoprolol succinate 50 mg daily. -Add Losartan 25 mg daily when safe from a renal standpoint -Daily I's/O's/Wt's/Lytes -Renal consult appreciated. -ICD implantation to be considered in near future. 2) Chronic atrial fibrillation: Ventricular rate controlled with episodes of slow afib and short pauses. -Continue metoprolol succinate 50 mg daily. -Decrease digoxin to 0.125 mg daily. -Change Pradaxa to Eliquis 5 mg BID, anticipating renal function worsens in future. Will follow with you.
[2018-12-01] MEDS: TIOTROPIUM BROMIDE 2.5 MCG (SPIRIVA) RESPIMAT INHALER IH SCH (10:16)
[2018-12-01] MEDS: BUDESONIDE/FORMETEROL FUMARATE 160/4.5 mcg INHALER IH SCH ×2 (10:16→21:29)
[2018-12-01] MEDS: ISOSORBIDE MONONITRATE 60 MG TAB.SR.24H (FP) PO SCH (10:16)
[2018-12-01] MEDS: predniSONE 20 MG TABLET (UD) PO SCH (10:16)
[2018-12-01] MEDS: DABIGATRAN ETEXILATE MESYLATE 150 MG CAPSULE PO SCH (10:17)
[2018-12-01] MEDS: DIGOXIN 0.25 MG TABLET (FP) PO SCH (10:17)
--- NOTE | 2018-12-01 10:24 | PN ---
Progress Note, Physician History of Present Illness: pulmonary alert,less dyspneic,-cp - Current Medication List Current Medications: Active Medications Acetaminophen (Tylenol -) 650 mg PO Q8H PRN PRN Reason: PAIN/FEVER Last Admin: 11/29/18 17:44 Dose: 650 mg Albuterol Sulfate (Ventolin 0.083% Nebulizer Soln -) 1 amp NEB Q8H PRN PRN Reason: SHORT OF BREATH/WHEEZING Last Admin: 11/29/18 08:05 Dose: 1 amp Apixaban (Eliquis -) 5 mg PO BID [facility] Atorvastatin Calcium (Lipitor -) 40 mg PO HS [facility] Last Admin: 11/30/18 22:27 Dose: 40 mg Budesonide/Formoterol Fumarate (Symbicort 160/4.5mcg -) 2 puff IH BID [facility] Last Admin: 12/01/18 10:16 Dose: 2 puff Digoxin (Lanoxin -) 0.125 mg PO DAILY [facility] Furosemide (Lasix Injection -) 40 mg IVPUSH BID@0600,1400 [facility] Last Admin: 12/01/18 06:34 Dose: 40 mg Hydroxyzine HCl (Atarax -) 25 mg PO Q6H PRN PRN Reason: FOR ITCHING Insulin Aspart (Novolog Vial Sliding Scale -) 1 vial SQ ACHS [facility]; Protocol Last Admin: 12/01/18 06:26 Dose: Not Given Insulin Detemir (Levemir Vial) 15 units SQ BID@0700,2200 [facility] Last Admin: 12/01/18 07:06 Dose: 15 unit Isosorbide Mononitrate (Imdur -) 60 mg PO DAILY [facility] Last Admin: 12/01/18 10:16 Dose: 60 mg Metoprolol Succinate (Toprol Xl -) 50 mg PO DAILY [facility] Last Admin: 12/01/18 10:16 Dose: 50 mg Montelukast Sodium (Singulair -) 10 mg PO HS [facility] Last Admin: 11/30/18 22:27 Dose: 10 mg Multi-Ingredient Lotion (Eucerin (Large Jar) -) 1 applic TP BID PRN PRN Reason: DRY SKIN Prednisone (Deltasone -) 20 mg PO DAILY [facility] Last Admin: 12/01/18 10:16 Dose: 20 mg Tiotropium [place] (Spiriva Respimat) 2 puff IH DAILY [facility] Last Admin: 12/01/18 10:16 Dose: 2 puff - Objective Vital Signs: Vital Signs Temperature 97.5 F L 12/01/18 06:00 Pulse Rate 65 12/01/18 06:00 Respiratory Rate 18 12/01/18 06:00 Blood Pressure 137/75 12/01/18 06:00 O2 Sat by Pulse Oximetry (%) 97 11/30/18 21:00 Constitutional: Yes: Well Nourished, Calm Eyes: Yes: WNL HENT: Yes: WNL Neck: Yes: WNL Cardiovascular: Yes: Pulse Irregular, S1, S2 Respiratory: Yes: Rales (bibasilar rales) Gastrointestinal: Yes: Normal Bowel Sounds, Soft Extremities: Yes: WNL Edema: Yes Labs: CBC, BMP 11/29/18 06:38 12/01/18 05:50 INR, PTT INR 1.84 (0.83-1.09) H 11/25/18 17:25 Problem List - Problems (1) Acute kidney injury Code(s): N17.9 - ACUTE KIDNEY FAILURE, UNSPECIFIED (2) Elevated LFTs Code(s): R94.5 - ABNORMAL RESULTS OF LIVER FUNCTION STUDIES (3) Acute on chronic diastolic CHF (congestive heart failure) Code(s): I50.33 - ACUTE ON CHRONIC DIASTOLIC (CONGESTIVE) HEART FAILURE Assessment/Plan Problem List - Problems (1) Chest tightness Code(s): R07.89 - OTHER CHEST PAIN (2) Atrial fibrillation Code(s): I48.91 - UNSPECIFIED ATRIAL FIBRILLATION Qualifiers: Atrial fibrillation type: persistent Qualified Code(s): I48.1 - Persistent atrial fibrillation (3) CAD (coronary artery disease) Code(s): I25.10 - ATHSCL HEART DISEASE OF [place] CORONARY ARTERY W/O ANG PCTRS Qualifiers: Coronary Disease-Associated Artery/Lesion type: [place] artery [place] vs. transplanted heart: [place] heart Associated angina: without angina Qualified Code(s): I25.10 - Atherosclerotic heart disease of [place] coronary artery without angina pectoris (4) CHF (congestive heart failure) Code(s): I50.9 - HEART FAILURE, UNSPECIFIED Qualifiers: Heart failure type: unspecified Heart failure chronicity: acute on chronic Qualified Code(s): I50.9 - Heart failure, unspecified (5) COPD with acute exacerbation Code(s): J44.1 - CHRONIC OBSTRUCTIVE PULMONARY DISEASE W (ACUTE) EXACERBATION (6) Hypertension Code(s): I10 - ESSENTIAL (PRIMARY) HYPERTENSION Qualifiers: Hypertension type: essential hypertension Qualified Code(s): I10 - Essential (primary) hypertension (7) Pulmonary HTN Code(s): I27.20 - PULMONARY HYPERTENSION, UNSPECIFIED (8) Shortness of breath Code(s): R06.02 - SHORTNESS OF BREATH Assessment/Plan IMP ACUTE ON CHRONIC CHF NON-ISCHEMIC CARDIOMYOPATHY COPD EXACERBATION ASHD S/P STENT AFIB LIKELY OSAS AHI 38.1 ON SLEEP SCREEN PULMONARY HTN ELEVATED LFTS ACUTE KIDNEY INJURY NIDDM S/P HYPOGLYCEMIC EPISODE HYPONATREMIA IMPROVING PLAN LASIX IV INHALED BRONCHODILATORS DAILY WT PREDNISONE O2 AC TREND LFTS MONITOR LYTES,BLOOD SUGARS,RENAL FUNCTION,NA BIPAP AT NIGHT DR TEJEDA Problem List - Problems (1) Chest tightness Code(s): R07.89 - OTHER CHEST PAIN (2) Atrial fibrillation Code(s): I48.91 - UNSPECIFIED ATRIAL FIBRILLATION Qualifiers: Atrial fibrillation type: persistent Qualified Code(s): I48.1 - Persistent atrial fibrillation (3) CAD (coronary artery disease) Code(s): I25.10 - ATHSCL HEART DISEASE OF [place] CORONARY ARTERY W/O ANG PCTRS Qualifiers: Coronary Disease-Associated Artery/Lesion type: [place] artery [place] vs. transplanted heart: [place] heart Associated angina: without angina Qualified Code(s): I25.10 - Atherosclerotic heart disease of [place] coronary artery without angina pectoris (4) CHF (congestive heart failure) Code(s): I50.9 - HEART FAILURE, UNSPECIFIED Qualifiers: Heart failure type: unspecified Heart failure chronicity: acute on chronic Qualified Code(s): I50.9 - Heart failure, unspecified (5) COPD with acute exacerbation Code(s): J44.1 - CHRONIC OBSTRUCTIVE PULMONARY DISEASE W (ACUTE) EXACERBATION (6) Hypertension Code(s): I10 - ESSENTIAL (PRIMARY) HYPERTENSION Qualifiers: Hypertension type: essential hypertension Qualified Code(s): I10 - Essential (primary) hypertension (7) Pulmonary HTN Code(s): I27.20 - PULMONARY HYPERTENSION, UNSPECIFIED (8) Shortness of breath Code(s): R06.02 - SHORTNESS OF BREATH Problem List - Problems (1) Acute kidney injury Code(s): N17.9 - ACUTE KIDNEY FAILURE, UNSPECIFIED (2) Elevated LFTs Code(s): R94.5 - ABNORMAL RESULTS OF LIVER FUNCTION STUDIES (3) Acute on chronic diastolic CHF (congestive heart failure) Code(s): I50.33 - ACUTE ON CHRONIC DIASTOLIC (CONGESTIVE) HEART FAILURE
--- NOTE | 2018-12-01 11:10 | CON.GI ---
Consult Consult Specialty:: GI Referred by:: Dr. Jessica Wooten Reason for Consultation:: Abnormal Liver chemistries - History of Present Illness Chief Complaint: "My COPD and CHF acted up" History of Present Illness: 63M admitted 11/25/18 for evaluation of SOB and chest pain. Asked to evaluatre abnormal liver chemistries. On admission LFTs were as follows: AST: 366 ALT: 341 ALP: 287 TB: 5.5 with INR 1.84. Was on Pradaxa prior to admission, which has been changed to eliquis. Asked to evaluate abnormal LFTs. He denies h/o IVDA, describes 23 year h/o heavy etoh use. He denies family or known history of liver disease. He has been non complaint with medications of late. He denies abdominal pain. transaminases and bilirubin have improved. Abdominal imaging included Abdominal US revealing fatty liver, mild hepatomegaly, borderline CBD of 6-7mm and no gallstones. CT scan A/P without contrast revealing divertioculosis and fatty liver. Echocardiogram revealed severe tricuspid regurgitation, Severely reduced LV function with global hypokinesis. CT scan revealed an exophytic left renal mass. He is continued on lipitor. Acetaminophen is ordered PRN for pain/fever. He has been evaluated by cardiology and last note alludes to the need for ICD placement in near future. He has been evaluated by pulmonary and is on PO steroids for COPD exacerbation. He describes previously heavy etoh consumption x 23 years. He now states that for the last 2-3 years he only drinks "a few beers every once in a while". - History Source History Provided By: Patient, Medical Record - Past Medical History Cardio/Vascular: Yes: AFIB, CAD, CHF, HTN Pulmonary: Yes: COPD, Sleep Apnea Infectious Disease: Yes: Other (pneumonia and the flu) Psych: Yes: Anxiety, Panic (panic D/O) Endocrine: Yes: Diabetes Mellitus - Past Surgical History Past Surgical History: Yes: Stent - Alcohol/Substance Use Hx Alcohol Use: Yes (former heavy) History of Substance Use: reports: None - Smoking History Smoking history: Former smoker Have you smoked in the past 12 months: No Aproximately how many cigarettes per day: 0 If you are a former smoker, when did you quit?: 2yrs - Social History ADL: Independent (ambulates with cane) 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 Place of : [facility] History of Recent Travel: No Home Medications - Allergies Allergies/Adverse Reactions: Allergies Allergy/AdvReac Type Severity Reaction Status Date / Time Iodinated Contrast- Oral and AdvReac Intermediate Nausea Verified 08/29/18 14:38 IV Dye - Home Medications Home Medications: Ambulatory Orders Fluticasone/Salmeterol [Advair Hfa 115-21 Mcg Inhaler] 2 inh PO BID 02/07/18 Dabigatran Etexilate Mesylate [Pradaxa -] 150 mg PO BID cap 05/29/18 Digoxin [Lanoxin -] 0.25 mg PO DAILY tablet 05/29/18 Montelukast Na [Singulair -] 10 mg PO HS tablet 05/29/18 Potassium Chloride [K-Dur -] 20 meq PO DAILY tablet.er 05/29/18 Albuterol 2.5/Ipratropium 0.5 [Duoneb -] 1 amp NEB Q6H PRN amp 09/03/18 Atorvastatin Ca [Lipitor] 40 mg PO HS tablet 09/03/18 Hydrocortisone 0.5% Ointment [Hytone 0.5% Ointment -] 1 applic TP BID PRN tube 09/03/18 Insulin Sliding Scale [Novolog Vial Sliding Scale -] 1 vial SQ ACHS units 09/03 Isosorbide Mononitrate [Imdur -] 60 mg PO DAILY tab.sr.24h 09/03/18 Melatonin 10 mg PO HS tab 09/03/18 Metoprolol Succinate [Toprol XL -] 50 mg PO DAILY tab.sr.24h 09/03/18 Furosemide [Lasix -] 40 mg PO BID@0600,1400 09/24/18 Lisinopril [Prinivil] 5 mg PO DAILY 09/24/18 Nystatin Cream [Mycostatin Cream -] 1 applic TP BID 09/24/18 Acetaminophen [Tylenol .Regular Strength -] 650 mg PO Q6H PRN tablet 09/30/18 Budesonide/Formeterol Fumarate [SYMBICORT 160/4.5mcg -] 2 puff IH BID inhaler 09/30/18 Guaifenesin/D-Methorphan Hb [Diabetic Tussin Dm -] 5 ml PO Q4H PRN ml 09/30/18 Insulin (Levemir) [Levemir Vial] 15 units SQ BID@0700,2200 units 09/30/18 Tiotropium [place] [Spiriva Respimat] 2 puff IH DAILY inhaler 09/30/18 predniSONE [Deltasone -] 30 mg PO BID tablet 09/30/18 Prednisone 30 mg PO BID #100 tablet 10/01/18 Family Disease History - Family Disease History Family Disease History: Respiratory: Mother (Asthma, age 35), Other: Father (Alcoholic, ), Brother (6, healthy), Sister (7, healthy), Daughter (3, healthy) Other Family History: No family history of colorectal cancer, other GI malignancies, liver disease Review of Systems - Review of Systems Constitutional: denies: Chills Cardiovascular: reports: Chest Pain, Edema Respiratory: reports: SOB, SOB on Exertion Gastrointestinal: denies: Abdominal Pain, Bloating, Constipation, Diarrhea, Dysphagia, Indigestion, Melena, Nausea, Rectal Bleeding, Vomiting Genitourinary: reports: Hematuria Physical Exam-GI Vital Signs: Vital Signs Temperature 97.5 F L 12/01/18 06:00 Pulse Rate 65 12/01/18 06:00 Respiratory Rate 18 12/01/18 06:00 Blood Pressure 137/75 12/01/18 06:00 O2 Sat by Pulse Oximetry (%) 97 11/30/18 21:00 Constitutional: Yes: Calm Eyes: No: Sclera Icterus Cardiovascular: Yes: Pulse Irregular (regular rate) Respiratory: Yes: Diminished (at bases bilaterally with poor insp effort) Gastrointestinal Inspection: No: Distention, Scars ...Auscultate: Yes: Normoactive Bowel Sounds ...Palpate: Yes: Soft. No: Hepatomegaly, Splenomegaly, Tenderness ...Percussion: No: Tympanitic Edema: LLE: 3+ (weeping abrasions), RLE: 3+ (abrasions) Neurological: Yes: Alert Labs: CBC, BMP 11/29/18 06:38 12/01/18 05:50 INR, PTT INR 1.84 (0.83-1.09) H 11/25/18 17:25 Hepatic Panel Total Bilirubin 1.6 mg/dL (0.2-1) H 12/01/18 05:50 AST 72 U/L (15-37) H 12/01/18 05:50 ALT 135 U/L (13-61) H 12/01/18 05:50 Alkaline Phosphatase 421 U/L (45-117) H 12/01/18 05:50 Albumin 2.6 g/dl (3.4-5.0) L 12/01/18 05:50 Imaging - Results Cat Scan: Report Reviewed, Image Reviewed Ultrasound: Report Reviewed Problem List - Problems (1) Elevated LFTs Assessment/Plan: Asymptomatic mixerd cholestatic and hepatocellular liver dysfunction picture that seems to have improved without intervention. Alkaline phosphatase has been elevated for quite some time and it is uncertain if he has had outpatient work- up of this (with normal transaminases). I suspect that there is some component of chronic liver disease, likely from fatty liver and alcohol consumption, worsened now by acute CHF exacerbation. US reveals borederline CBD however no gallstones were noted. I have advised the following: D/C'd lipitor for now D/C'd PRN Acetaminophen Monitor LFTs / coags MRCP,when feasible from cardiopulmonary standpoint, for evaluation of abnormal LFTs and biliary tract Explained to Mr. Bowens that he needs to completely abstain from alcohol While on A/C and corticosteroids, added PPI for GI prophylaxis Code(s): R94.5 - ABNORMAL RESULTS OF LIVER FUNCTION STUDIES
[2018-12-01] MEDS: PANTOPRAZOLE 20 MG TABLET (FP) PO SCH (12:07)
--- NOTE | 2018-12-01 12:19 | PN ---
Progress Note, Physician Chief Complaint: patient seen and examined complaining of itchiness of legs to get MRCP - Current Medication List Current Medications: Active Medications Albuterol Sulfate (Ventolin 0.083% Nebulizer Soln -) 1 amp NEB Q8H PRN PRN Reason: SHORT OF BREATH/WHEEZING Last Admin: 11/29/18 08:05 Dose: 1 amp Apixaban (Eliquis -) 5 mg PO BID [facility] Budesonide/Formoterol Fumarate (Symbicort 160/4.5mcg -) 2 puff IH BID [facility] Last Admin: 12/01/18 10:16 Dose: 2 puff Digoxin (Lanoxin -) 0.125 mg PO DAILY [facility] Furosemide (Lasix Injection -) 40 mg IVPUSH BID@0600,1400 [facility] Last Admin: 12/01/18 06:34 Dose: 40 mg Hydroxyzine HCl (Atarax -) 25 mg PO Q6H PRN PRN Reason: FOR ITCHING Insulin Aspart (Novolog Vial Sliding Scale -) 1 vial SQ ACHS [facility]; Protocol Last Admin: 12/01/18 06:26 Dose: Not Given Insulin Detemir (Levemir Vial) 15 units SQ BID@0700,2200 [facility] Last Admin: 12/01/18 07:06 Dose: 15 unit Isosorbide Mononitrate (Imdur -) 60 mg PO DAILY [facility] Last Admin: 12/01/18 10:16 Dose: 60 mg Metoprolol Succinate (Toprol Xl -) 50 mg PO DAILY [facility] Last Admin: 12/01/18 10:16 Dose: 50 mg Montelukast Sodium (Singulair -) 10 mg PO HS [facility] Last Admin: 11/30/18 22:27 Dose: 10 mg Multi-Ingredient Lotion (Eucerin (Large Jar) -) 1 applic TP BID PRN PRN Reason: DRY SKIN Pantoprazole Sodium (Protonix -) 20 mg PO DAILY [facility] Prednisone (Deltasone -) 20 mg PO DAILY [facility] Last Admin: 12/01/18 10:16 Dose: 20 mg Tiotropium [place] (Spiriva Respimat) 2 puff IH DAILY [facility] Last Admin: 12/01/18 10:16 Dose: 2 puff - Objective Vital Signs: Vital Signs Temperature 97.5 F L 12/01/18 06:00 Pulse Rate 65 12/01/18 06:00 Respiratory Rate 18 12/01/18 06:00 Blood Pressure 137/75 12/01/18 06:00 O2 Sat by Pulse Oximetry (%) 97 11/30/18 21:00 Constitutional: Yes: Calm Cardiovascular: Yes: Regular Rate and Rhythm, S1, S2 Respiratory: Yes: Diminished Gastrointestinal: Yes: Normal Bowel Sounds, Soft Extremities: Yes: Erythema Edema: Yes Neurological: Yes: Alert, Oriented Labs: CBC, BMP 11/29/18 06:38 12/01/18 05:50 INR, PTT INR 1.84 (0.83-1.09) H 11/25/18 17:25 Problem List - Problems (1) COPD (chronic obstructive pulmonary disease) Assessment/Plan: prednisone bronchodilators ppi for gi ppx Code(s): J44.9 - CHRONIC OBSTRUCTIVE PULMONARY DISEASE, UNSPECIFIED (2) Acute on chronic diastolic CHF (congestive heart failure) Assessment/Plan: iv lasix monitor lytes Code(s): I50.33 - ACUTE ON CHRONIC DIASTOLIC (CONGESTIVE) HEART FAILURE (3) Elevated LFTs Assessment/Plan: appreicate GI consult stop statin and tylenol mrcp ordered maybe due to hepatic congestion Code(s): R94.5 - ABNORMAL RESULTS OF LIVER FUNCTION STUDIES (4) Atrial fibrillation Assessment/Plan: eliquis digoxin Code(s): I48.91 - UNSPECIFIED ATRIAL FIBRILLATION Qualifiers: Atrial fibrillation type: persistent Qualified Code(s): I48.1 - Persistent atrial fibrillation (5) Stasis dermatitis of both legs Assessment/Plan: bendaryl cream atarax prn Code(s): I87.2 - VENOUS INSUFFICIENCY (CHRONIC) (PERIPHERAL) (6) Diabetes Assessment/Plan: hgba1c is 8.3 levemir Code(s): E11.9 - TYPE 2 DIABETES MELLITUS WITHOUT COMPLICATIONS Qualifiers: Diabetes mellitus type: type 2
--- NOTE | 2018-12-01 14:45 | PN ---
Progress Note, Physician History of Present Illness: Pt seen and examined at bedside. He is still complaining of leg edema. He feels that his breathing is improved. - Current Medication List Current Medications: Active Medications Albuterol Sulfate (Ventolin 0.083% Nebulizer Soln -) 1 amp NEB Q8H PRN PRN Reason: SHORT OF BREATH/WHEEZING Last Admin: 11/29/18 08:05 Dose: 1 amp Apixaban (Eliquis -) 5 mg PO BID [facility] Budesonide/Formoterol Fumarate (Symbicort 160/4.5mcg -) 2 puff IH BID [facility] Last Admin: 12/01/18 10:16 Dose: 2 puff Digoxin (Lanoxin -) 0.125 mg PO DAILY [facility] Furosemide (Lasix Injection -) 40 mg IVPUSH BID@0600,1400 [facility] Last Admin: 12/01/18 06:34 Dose: 40 mg Hydroxyzine HCl (Atarax -) 25 mg PO Q6H PRN PRN Reason: FOR ITCHING Insulin Aspart (Novolog Vial Sliding Scale -) 1 vial SQ ACHS [facility]; Protocol Last Admin: 12/01/18 06:26 Dose: Not Given Insulin Detemir (Levemir Vial) 15 units SQ BID@0700,2200 [facility] Last Admin: 12/01/18 07:06 Dose: 15 unit Isosorbide Mononitrate (Imdur -) 60 mg PO DAILY [facility] Last Admin: 12/01/18 10:16 Dose: 60 mg Metoprolol Succinate (Toprol Xl -) 50 mg PO DAILY [facility] Last Admin: 12/01/18 10:16 Dose: 50 mg Montelukast Sodium (Singulair -) 10 mg PO HS [facility] Last Admin: 11/30/18 22:27 Dose: 10 mg Multi-Ingredient Lotion (Eucerin (Large Jar) -) 1 applic TP BID PRN PRN Reason: DRY SKIN Pantoprazole Sodium (Protonix -) 20 mg PO DAILY [facility] Prednisone (Deltasone -) 20 mg PO DAILY [facility] Last Admin: 12/01/18 10:16 Dose: 20 mg Tiotropium [place] (Spiriva Respimat) 2 puff IH DAILY [facility] Last Admin: 12/01/18 10:16 Dose: 2 puff Zinc Acetate/Diphenhydramine (Benadryl 2% Cream) 1 applic TP BID [facility] - Objective Vital Signs: Vital Signs Temperature 97.5 F L 12/01/18 06:00 Pulse Rate 65 12/01/18 06:00 Respiratory Rate 18 12/01/18 06:00 Blood Pressure 137/75 12/01/18 06:00 O2 Sat by Pulse Oximetry (%) 97 11/30/18 21:00 Constitutional: Yes: Calm Eyes: Yes: Conjunctiva Clear HENT: Yes: Atraumatic Cardiovascular: Yes: S1, S2 Respiratory: Yes: On Nasal O2 Gastrointestinal: Yes: Soft, Abdomen, Obese Genitourinary: Yes: WNL Edema: Yes Edema: LLE: 2+, RLE: 2+ Neurological: Yes: Oriented Psychiatric: Yes: Oriented Labs: CBC, BMP 11/29/18 06:38 12/01/18 05:50 INR, PTT INR 1.84 (0.83-1.09) H 11/25/18 17:25 Problem List - Problems (1) Acute kidney injury Code(s): N17.9 - ACUTE KIDNEY FAILURE, UNSPECIFIED (2) Acute on chronic diastolic CHF (congestive heart failure) Code(s): I50.33 - ACUTE ON CHRONIC DIASTOLIC (CONGESTIVE) HEART FAILURE (3) CHF exacerbation Code(s): I50.9 - HEART FAILURE, UNSPECIFIED Qualifiers: Heart failure type: unspecified Qualified Code(s): I50.9 - Heart failure, unspecified Assessment/Plan Current Medications Generic Name Dose Route Start Last Admin Trade Name Freq PRN Reason Stop Dose Admin Albuterol Sulfate 1 amp 11/25/18 20:11 11/29/18 08:05 Ventolin 0.083% Nebulizer Soln - NEB 1 amp Q8H PRN Administration SHORT OF BREATH/WHEEZING Apixaban 5 mg 12/01/18 22:00 Eliquis - PO BID [facility] Budesonide/Formoterol Fumarate 2 puff 11/25/18 22:00 12/01/18 10:16 Symbicort 160/4.5mcg - [facility] 2 puff BID [facility] Administration Digoxin 0.125 mg 12/01/18 10:01 Lanoxin - PO DAILY [facility] Furosemide 40 mg 11/29/18 14:00 12/01/18 06:34 Lasix Injection - IVPUSH 40 mg BID@0600,1400 [facility] Administration Hydroxyzine HCl 25 mg 11/30/18 14:39 Atarax - PO Q6H PRN FOR ITCHING Insulin Aspart 1 vial 11/25/18 22:00 12/01/18 06:26 Novolog Vial Sliding Scale - SQ Not Given ACHS [facility] Protocol Insulin Detemir 15 units 11/25/18 22:00 12/01/18 07:06 Levemir Vial SQ 15 unit BID@0700,2200 [facility] Administration Isosorbide Mononitrate 60 mg 11/26/18 10:00 12/01/18 10:16 Imdur - PO 60 mg DAILY [facility] Administration Metoprolol Succinate 50 mg 11/26/18 10:00 12/01/18 10:16 Toprol Xl - PO 50 mg DAILY [facility] Administration Montelukast Sodium 10 mg 11/25/18 22:00 11/30/18 22:27 Singulair - PO 10 mg HS [facility] Administration Multi-Ingredient Lotion 1 applic 11/30/18 12:07 Eucerin (Large Jar) - TP BID PRN DRY SKIN Pantoprazole Sodium 20 mg 12/01/18 11:45 Protonix - PO DAILY [facility] Prednisone 20 mg 11/30/18 10:00 12/01/18 10:16 Deltasone - PO 20 mg DAILY [facility] Administration Tiotropium [place] 2 puff 11/26/18 10:00 12/01/18 10:16 Spiriva Respimat I[facility] 2 puff DAILY [facility] Administration Zinc Acetate/Diphenhydramine 1 applic 12/01/18 12:15 Benadryl 2% Cream TP BID [facility] Impression 1. CHF 2. hyponatremia 3. fluid overload 4. asthma 5. a-fib 6. DM 7. td Plan - cont with iv lasix - monitor sodium - monitor renal function - volume status slowly improving - cardio input appreciated, chirag was held due to renal failure, will restart once stable - taper steroids - pt still with significant edema - monitor volume status - discussed diet with pt
[2018-12-01 15:42] VITALS: BMI 34.8
[2018-12-01] MEDS ORDERED: PT OWN MED DRAWER 7, Y5N ONE (15:50)
[2018-12-01] MEDS: MONTELUKAST NA 10 MG TABLET PO SCH (21:28)
[2018-12-01] MEDS: APIXABAN 5 MG TABLET PO SCH (21:28)
[2018-12-02] MEDS: FUROSEMIDE 40 MG/4 ML INJECTABLE VIAL IVPUSH SCH ×3 (05:57→12:59)
[2018-12-02] MEDS: INSULIN SLIDING SCALE (NOVOLOG) 1 VIAL SQ SCH ×4 (06:23→21:32)
[2018-12-02] MEDS: INSULIN (LEVEMIR) 100 UNITS/ML UNITS SQ SCH ×2 (06:27→21:32)
[2018-12-02 07:06] LABS: BASO % 0.2 % (0-2.0); EOS % 0.6 % (0-4.5); HEMATOCRIT 40.7 % (35.4-49); HEMOGLOBIN 13.1 GM/dL (11.7-16.9); LYMPH % 9.5 % (8-40); MCH 28.1 pg (25.7-33.7); MCHC 32.1 g/dl (32.0-35.9); MEAN CELL VOLUME 87.4 fl (80-96); MEAN PLT VOLUME 9.6 fl (7.5-11.1); MONO % 11.8 % (3.8-10.2); NEUT % 77.9 % (42.8-82.8); PLATELET COUNT 173 K/MM3 (134-434); RBC 4.66 M/mm3 (4.00-5.60); RDW 18.9 % (11.9-15.9); WHITE BLOOD COUNT 11.7 K/mm3 (4.0-10.0)
[2018-12-02 07:42] LABS: ALBUMIN 2.6 g/dl (3.4-5.0); ALK PHOS 411 U/L (45-117); ANION GAP 8 MMOL/L (8-16); BILIRUBIN,TOTAL 1.6 mg/dL (0.2-1); BLOOD UREA NITROGEN 39 mg/dL (7-18); CALCIUM 8.6 mg/dL (8.5-10.1); CHLORIDE 93 mmol/L (98-107); CO2 36 mmol/L (21-32); CREATININE 0.9 mg/dL (0.55-1.3); GLUCOSE,RANDOM 93 mg/dL (74-106); POTASSIUM 3.9 mmol/L (3.5-5.1); SGOT/AST 57 U/L (15-37); SGPT/ALT 118 U/L (13-61); SODIUM 137 mmol/L (136-145)
--- NOTE | 2018-12-02 08:02 | PN ---
Progress Note, Physician History of Present Illness: c/o cough - Current Medication List Current Medications: Active Medications Albuterol Sulfate (Ventolin 0.083% Nebulizer Soln -) 1 amp NEB Q8H PRN PRN Reason: SHORT OF BREATH/WHEEZING Last Admin: 11/29/18 08:05 Dose: 1 amp Apixaban (Eliquis -) 5 mg PO BID [facility] Last Admin: 12/01/18 21:28 Dose: 5 mg Budesonide/Formoterol Fumarate (Symbicort 160/4.5mcg -) 2 puff IH BID [facility] Last Admin: 12/01/18 21:29 Dose: 2 puff Digoxin (Lanoxin -) 0.125 mg PO DAILY [facility] Furosemide (Lasix Injection -) 40 mg IVPUSH BID@0600,1400 [facility] Last Admin: 12/02/18 05:57 Dose: 40 mg Hydroxyzine HCl (Atarax -) 25 mg PO Q6H PRN PRN Reason: FOR ITCHING Last Admin: 12/01/18 21:29 Dose: 25 mg Insulin Aspart (Novolog Vial Sliding Scale -) 1 vial SQ ACHS [facility]; Protocol Last Admin: 12/02/18 06:23 Dose: Not Given Insulin Detemir (Levemir Vial) 15 units SQ BID@0700,2200 [facility] Last Admin: 12/02/18 06:27 Dose: 15 unit Isosorbide Mononitrate (Imdur -) 60 mg PO DAILY [facility] Last Admin: 12/01/18 10:16 Dose: 60 mg Metoprolol Succinate (Toprol Xl -) 50 mg PO DAILY [facility] Last Admin: 12/01/18 10:16 Dose: 50 mg Montelukast Sodium (Singulair -) 10 mg PO HS [facility] Last Admin: 12/01/18 21:28 Dose: 10 mg Multi-Ingredient Lotion (Eucerin (Large Jar) -) 1 applic TP BID PRN PRN Reason: DRY SKIN Pantoprazole Sodium (Protonix -) 20 mg PO DAILY [facility] Last Admin: 12/01/18 12:07 Dose: 20 mg Prednisone (Deltasone -) 20 mg PO DAILY [facility] Last Admin: 12/01/18 10:16 Dose: 20 mg Tiotropium [place] (Spiriva Respimat) 2 puff IH DAILY [facility] Last Admin: 01/21/19 10:16 Dose: 2 puff Zinc Acetate/Diphenhydramine (Benadryl 2% Cream) 1 applic TP BID [facility] Last Admin: 12/01/18 21:30 Dose: 1 applic - Objective Vital Signs: Vital Signs Temperature 98 F 12/02/18 06:00 Pulse Rate 73 12/02/18 06:00 Respiratory Rate 18 12/02/18 06:00 Blood Pressure 120/83 12/02/18 06:00 O2 Sat by Pulse Oximetry (%) 95 12/01/18 21:00 Cardiovascular: Yes: S1, S2 Respiratory: Yes: On Nasal O2, Rhonchi Gastrointestinal: Yes: Normal Bowel Sounds, Soft Edema: Yes Labs: CBC, BMP 12/02/18 05:30 12/02/18 05:30 INR, PTT INR 1.84 (0.83-1.09) H 11/25/18 17:25 Assessment/Plan - Problems (1) COPD (chronic obstructive pulmonary disease) Assessment/Plan: prednisone bronchodilators pulm on case ppi for gi ppx Code(s): J44.9 - CHRONIC OBSTRUCTIVE PULMONARY DISEASE, UNSPECIFIED (2) Acute on chronic diastolic CHF (congestive heart failure) Assessment/Plan: iv lasix monitor lytes Code(s): I50.33 - ACUTE ON CHRONIC DIASTOLIC (CONGESTIVE) HEART FAILURE (3) Elevated LFTs Assessment/Plan: appreciate GI consult stop statin and tylenol mrcp ordered maybe due to hepatic congestion Code(s): R94.5 - ABNORMAL RESULTS OF LIVER FUNCTION STUDIES (4) Atrial fibrillation Assessment/Plan: eliquis digoxin Code(s): I48.91 - UNSPECIFIED ATRIAL FIBRILLATION Qualifiers: Atrial fibrillation type: persistent Qualified Code(s): I48.1 - Persistent atrial fibrillation (5) Stasis dermatitis of both legs Assessment/Plan: bendaryl cream atarax prn vascular consult Code(s): I87.2 - VENOUS INSUFFICIENCY (CHRONIC) (PERIPHERAL) (6) Diabetes Assessment/Plan: hgba1c is 8.3 levemir endo Code(s): E11.9 - TYPE 2 DIABETES MELLITUS WITHOUT COMPLICATIONS Qualifiers: Diabetes mellitus type: type 2
[2018-12-02] MEDS: ALBUTEROL SO4 0.083% IH SOL 2.5 MG/3 ML VIAL.NEB. NEB PRN (08:27)
[2018-12-02] MEDS ORDERED: guaiFENesin/CODEINE 5 ML UNIT-DOSE CUPS PO PRN (08:41)
--- NOTE | 2018-12-02 10:49 | PN ---
Progress Note, Physician History of Present Illness: seen and examined today in nad. still has cough and b/l le edema. no new complaints. - Current Medication List Current Medications: Active Medications Albuterol Sulfate (Ventolin 0.083% Nebulizer Soln -) 1 amp NEB RQID [facility] Apixaban (Eliquis -) 5 mg PO BID [facility] Last Admin: 12/01/18 21:28 Dose: 5 mg Budesonide/Formoterol Fumarate (Symbicort 160/4.5mcg -) 2 puff IH BID [facility] Last Admin: 12/01/18 21:29 Dose: 2 puff Digoxin (Lanoxin -) 0.125 mg PO DAILY [facility] Furosemide (Lasix Injection -) 40 mg IVPUSH BID@0600,1400 [facility] Last Admin: 12/02/18 05:57 Dose: 40 mg Guaifenesin/Codeine Phosphate (Robitussin Ac -) 5 ml PO TID PRN PRN Reason: COUGH Hydroxyzine HCl (Atarax -) 25 mg PO Q6H PRN PRN Reason: FOR ITCHING Last Admin: 12/01/18 21:29 Dose: 25 mg Insulin Aspart (Novolog Vial Sliding Scale -) 1 vial SQ ACHS [facility]; Protocol Last Admin: 12/02/18 06:23 Dose: Not Given Insulin Detemir (Levemir Vial) 15 units SQ BID@0700,2200 [facility] Last Admin: 12/02/18 06:27 Dose: 15 unit Isosorbide Mononitrate (Imdur -) 60 mg PO DAILY [facility] Last Admin: 12/01/18 10:16 Dose: 60 mg Metoprolol Succinate (Toprol Xl -) 50 mg PO DAILY [facility] Last Admin: 12/01/18 10:16 Dose: 50 mg Montelukast Sodium (Singulair -) 10 mg PO HS [facility] Last Admin: 12/01/18 21:28 Dose: 10 mg Multi-Ingredient Lotion (Eucerin (Large Jar) -) 1 applic TP BID PRN PRN Reason: DRY SKIN Pantoprazole Sodium (Protonix -) 20 mg PO DAILY [facility] Last Admin: 12/01/18 12:07 Dose: 20 mg Prednisone (Deltasone -) 20 mg PO DAILY [facility] Last Admin: 12/01/18 10:16 Dose: 20 mg Tiotropium [place] (Spiriva Respimat) 2 puff IH DAILY [facility] Last Admin: 12/01/18 10:16 Dose: 2 puff Zinc Acetate/Diphenhydramine (Benadryl 2% Cream) 1 applic TP BID [facility] Last Admin: 12/01/18 21:30 Dose: 1 applic - Objective Vital Signs: Vital Signs Temperature 98 F 12/02/18 06:00 Pulse Rate 73 12/02/18 06:00 Respiratory Rate 18 12/02/18 06:00 Blood Pressure 120/83 12/02/18 06:00 O2 Sat by Pulse Oximetry (%) 95 12/01/18 21:00 Constitutional: Yes: No Distress, Calm Eyes: Yes: Conjunctiva Clear, EOM Intact HENT: Yes: Atraumatic, Normocephalic Neck: Yes: Supple, Trachea Midline Cardiovascular: Yes: Pulse Irregular, S1, S2. No: Regular Rate and Rhythm, Bradycardia, Tachycardia, Bruit, JVD, Gallop, Murmur, Rub, S3, S4, Varicosities Respiratory: Yes: Regular, Cough, Diminished. No: Rales, Rhonchi, SOB, Wheezes Gastrointestinal: Yes: Normal Bowel Sounds, Soft. No: Distention, Tenderness Edema: Yes Edema: LLE: 1+, RLE: 1+ Peripheral Pulses WNL: Yes Peripheral Pulses: Left Doralis Pedis: 2+, Right Dorsalis Pedis: 2+ Neurological: Yes: Alert, Oriented Psychiatric: Yes: Alert, Oriented Labs: CBC, BMP 12/02/18 05:30 12/02/18 05:30 INR, PTT INR 1.84 (0.83-1.09) H 11/25/18 17:25 - ....Imaging Chest X-ray: Report Reviewed, Image Reviewed EKG: Report Reviewed, Image Reviewed Other: Report Reviewed, Image Reviewed (tele-afib, hr adequate pvcs short pauses ) Assessment/Plan 63 year old male with a PMHx of HTN, DM, HLD, mild non-obstructive CAD from cardiac cath on 07/25/2016 at [facility], systolic CHF secondary to non-ischemic cardiomyopathy with known low EF 30-35% 08/2018, chronic afib (on pradaxa), COPD , admitted 11/25/2018 CHF exacerbation with massive weeping edema. Medication non adherence and dietary indiscretion noted. He had chest discomfort 11/28/2018 without ECG changes. 1) Acute on chronic systolic CHF secondary to non-ischemic CMP: Repeat Echo 11/26 with severe LV function and severe MR -still volume overloaded but improving each day -significant urine output with O>I, weight trending down, bun/creat trending down -can cont Lasix 40mg IV BID for now and re-evaluate tomorrow for possible transition to po -fluid restriction -Continue metoprolol succinate 50 mg daily. -Add Losartan 25 mg daily when safe from a renal standpoint -Daily I's/O's/Wt's/Lytes -Renal consult appreciated. -ICD implantation to be considered in near future, most likely as outpatient 2) Chronic atrial fibrillation: Ventricular rate controlled with episodes of slow afib and short pauses. -Continue metoprolol succinate 50 mg daily. -Decrease digoxin to 0.125 mg daily. -Change Pradaxa to Eliquis 5 mg BID, anticipating renal function worsens in future. Will follow with you.
--- NOTE | 2018-12-02 11:06 | PN ---
Progress Note, Physician History of Present Illness: PULMONARY ALERT,STILL DYSPNEIC WITH MIN EXERTION - Current Medication List Current Medications: Active Medications Albuterol Sulfate (Ventolin 0.083% Nebulizer Soln -) 1 amp NEB RQID [facility] Apixaban (Eliquis -) 5 mg PO BID [facility] Last Admin: 12/01/18 21:28 Dose: 5 mg Budesonide/Formoterol Fumarate (Symbicort 160/4.5mcg -) 2 puff IH BID [facility] Last Admin: 12/01/18 21:29 Dose: 2 puff Digoxin (Lanoxin -) 0.125 mg PO DAILY [facility] Furosemide (Lasix Injection -) 40 mg IVPUSH BID@0600,1400 [facility] Last Admin: 12/02/18 05:57 Dose: 40 mg Guaifenesin/Codeine Phosphate (Robitussin Ac -) 5 ml PO TID PRN PRN Reason: COUGH Hydroxyzine HCl (Atarax -) 25 mg PO Q6H PRN PRN Reason: FOR ITCHING Last Admin: 12/01/18 21:29 Dose: 25 mg Insulin Aspart (Novolog Vial Sliding Scale -) 1 vial SQ [facility]; Protocol Last Admin: 12/02/18 06:23 Dose: Not Given Insulin Detemir (Levemir Vial) 15 units SQ BID@0700,2200 [facility] Last Admin: 12/02/18 06:27 Dose: 15 unit Isosorbide Mononitrate (Imdur -) 60 mg PO DAILY [facility] Last Admin: 12/01/18 10:16 Dose: 60 mg Metoprolol Succinate (Toprol Xl -) 50 mg PO DAILY [facility] Last Admin: 12/01/18 10:16 Dose: 50 mg Montelukast Sodium (Singulair -) 10 mg PO HS [facility] Last Admin: 12/01/18 21:28 Dose: 10 mg Multi-Ingredient Lotion (Eucerin (Large Jar) -) 1 applic TP BID PRN PRN Reason: DRY SKIN Pantoprazole Sodium (Protonix -) 20 mg PO DAILY [facility] Last Admin: 12/01/18 12:07 Dose: 20 mg Prednisone (Deltasone -) 20 mg PO DAILY [facility] Last Admin: 12/01/18 10:16 Dose: [address] [place] (Spiriva Respimat) 2 puff IH DAILY [facility] Last Admin: 12/01/18 10:16 Dose: 2 puff Zinc Acetate/Diphenhydramine (Benadryl 2% Cream) 1 applic TP BID [facility] Last Admin: 12/01/18 21:30 Dose: 1 applic - Objective Vital Signs: Vital Signs Temperature 98 F 12/02/18 06:00 Pulse Rate 73 12/02/18 06:00 Respiratory Rate 18 12/02/18 06:00 Blood Pressure 120/83 12/02/18 06:00 O2 Sat by Pulse Oximetry (%) 95 12/01/18 21:00 Constitutional: Yes: Well Nourished, Calm Eyes: Yes: WNL HENT: Yes: WNL Neck: Yes: WNL Cardiovascular: Yes: Pulse Irregular, S1, S2 Respiratory: Yes: Rales (BIBASILAR RALES) Gastrointestinal: Yes: Normal Bowel Sounds, Soft Extremities: Yes: Other (WRAPPED) Edema: Yes Labs: CBC, BMP 12/02/18 05:30 12/02/18 05:30 INR, PTT INR 1.84 (0.83-1.09) H 11/25/18 17:25 Problem List - Problems (1) Acute kidney injury Code(s): N17.9 - ACUTE KIDNEY FAILURE, UNSPECIFIED (2) Elevated LFTs Code(s): R94.5 - ABNORMAL RESULTS OF LIVER FUNCTION STUDIES (3) Acute on chronic diastolic CHF (congestive heart failure) Code(s): I50.33 - ACUTE ON CHRONIC DIASTOLIC (CONGESTIVE) HEART FAILURE Assessment/Plan Problem List - Problems (1) Chest tightness Code(s): R07.89 - OTHER CHEST PAIN (2) Atrial fibrillation Code(s): I48.91 - UNSPECIFIED ATRIAL FIBRILLATION Qualifiers: Atrial fibrillation type: persistent Qualified Code(s): I48.1 - Persistent atrial fibrillation (3) CAD (coronary artery disease) Code(s): I25.10 - ATHSCL HEART DISEASE OF [place] CORONARY ARTERY W/O ANG PCTRS Qualifiers: Coronary Disease-Associated Artery/Lesion type: [place] artery [place] vs. transplanted heart: [place] heart Associated angina: without angina Qualified Code(s): I25.10 - Atherosclerotic heart disease of [place] coronary artery without angina pectoris (4) CHF (congestive heart failure) Code(s): I50.9 - HEART FAILURE, UNSPECIFIED Qualifiers: Heart failure type: unspecified Heart failure chronicity: acute on chronic Qualified Code(s): I50.9 - Heart failure, unspecified (5) COPD with acute exacerbation Code(s): J44.1 - CHRONIC OBSTRUCTIVE PULMONARY DISEASE W (ACUTE) EXACERBATION (6) Hypertension Code(s): I10 - ESSENTIAL (PRIMARY) HYPERTENSION Qualifiers: Hypertension type: essential hypertension Qualified Code(s): I10 - Essential (primary) hypertension (7) Pulmonary HTN Code(s): I27.20 - PULMONARY HYPERTENSION, UNSPECIFIED (8) Shortness of breath Code(s): R06.02 - SHORTNESS OF BREATH Assessment/Plan IMP ACUTE ON CHRONIC CHF NON-ISCHEMIC CARDIOMYOPATHY COPD EXACERBATION ASHD S/P STENT AFIB LIKELY OSAS AHI 38.1 ON SLEEP SCREEN PULMONARY HTN ELEVATED LFTS ACUTE KIDNEY INJURY NIDDM S/P HYPOGLYCEMIC EPISODE HYPONATREMIA IMPROVING PLAN LASIX IV INHALED BRONCHODILATORS DAILY WT PREDNISONE O2 AC TREND LFTS MONITOR LYTES,BLOOD SUGARS,RENAL FUNCTION,NA BIPAP AT NIGHT DR TEJEDA Problem List - Problems (1) Chest tightness Code(s): R07.89 - OTHER CHEST PAIN (2) Atrial fibrillation Code(s): I48.91 - UNSPECIFIED ATRIAL FIBRILLATION Qualifiers: Atrial fibrillation type: persistent Qualified Code(s): I48.1 - Persistent atrial fibrillation (3) CAD (coronary artery disease) Code(s): I25.10 - ATHSCL HEART DISEASE OF [place] CORONARY ARTERY W/O ANG PCTRS Qualifiers: Coronary Disease-Associated Artery/Lesion type: [place] artery [place] vs. transplanted heart: [place] heart Associated angina: without angina Qualified Code(s): I25.10 - Atherosclerotic heart disease of [place] coronary artery without angina pectoris (4) CHF (congestive heart failure) Code(s): I50.9 - HEART FAILURE, UNSPECIFIED Qualifiers: Heart failure type: unspecified Heart failure chronicity: acute on chronic Qualified Code(s): I50.9 - Heart failure, unspecified (5) COPD with acute exacerbation Code(s): J44.1 - CHRONIC OBSTRUCTIVE PULMONARY DISEASE W (ACUTE) EXACERBATION (6) Hypertension Code(s): I10 - ESSENTIAL (PRIMARY) HYPERTENSION Qualifiers: Hypertension type: essential hypertension Qualified Code(s): I10 - Essential (primary) hypertension (7) Pulmonary HTN Code(s): I27.20 - PULMONARY HYPERTENSION, UNSPECIFIED (8) Shortness of breath Code(s): R06.02 - SHORTNESS OF BREATH Problem List - Problems (1) Acute kidney injury Code(s): N17.9 - ACUTE KIDNEY FAILURE, UNSPECIFIED (2) Elevated LFTs Code(s): R94.5 - ABNORMAL RESULTS OF LIVER FUNCTION STUDIES (3) Acute on chronic diastolic CHF (congestive heart failure) Code(s): I50.33 - ACUTE ON CHRONIC DIASTOLIC (CONGESTIVE) HEART FAILURE
--- NOTE | 2018-12-02 11:31 | CONSULT ---
- Consultation REQUESTING PROVIDER: CONSULT REQUEST: We have been asked to surgically evaluate this patient for Lower extremity edema. PCP:Jessica Wooten HISTORY OF PRESENT ILLNESS: 63 year old male admitted for CHF exacerbation. He states he ran out of his medications which includes digoxin, metoprolol, pradaxa , and lasix and was not taking them. The patient presented with AMS and was found to be hypoglycemic upon ER admission, after D50 push his mentation improved to baseline. Patient states he has intermittent swelling of his legs but recently developed severe itching and has been scratching. He claims to have chills x 1 day but denies any fever, N/V/D. Patient sates he wraps his legs at home by himself on a PRN basis. Recent Travel: no PAST MEDICAL HISTORY: non-ischemic cardiomyopathy, HTN, A.Fib. COPD, DMII, dyslipidemia, obesity PAST SURGICAL HISTORY: stent- s/p cardiac cath showing nonobstructive CAD in 2016 Home Medications Medication Instructions Recorded Fluticasone/Salmeterol [Advair Hfa 2 inh PO BID 02/07/18 115-21 Mcg Inhaler] Dabigatran Etexilate Mesylate 150 mg PO BID cap 05/29/18 [Pradaxa -] Digoxin [Lanoxin -] 0.25 mg PO DAILY tablet 05/29/18 Montelukast Na [Singulair -] 10 mg PO HS tablet 05/29/18 Potassium Chloride [K-Dur -] 20 meq PO DAILY tablet.er 05/29/18 Albuterol 2.5/Ipratropium 0.5 1 amp NEB Q6H PRN amp 09/03/18 [Duoneb -] Atorvastatin Ca [Lipitor] 40 mg PO HS tablet 09/03/18 Hydrocortisone 0.5% Ointment 1 applic TP BID PRN tube 09/03/18 [Hytone 0.5% Ointment -] Insulin Sliding Scale [Novolog 1 vial SQ ACHS units 09/03/18 Vial Sliding Scale -] Isosorbide Mononitrate [Imdur -] 60 mg PO DAILY tab.sr.24h 09/03/18 Melatonin 10 mg PO HS tab 09/03/18 Metoprolol Succinate [Toprol XL -] 50 mg PO DAILY tab.sr.24h 09/03/18 Furosemide [Lasix -] 40 mg PO BID@0600,1400 09/24/18 Lisinopril [Prinivil] 5 mg PO DAILY 09/24/18 Nystatin Cream [Mycostatin Cream -] 1 applic TP BID 09/24/18 Acetaminophen [Tylenol .Regular 650 mg PO Q6H PRN tablet 09/30/18 Strength -] Budesonide/Formeterol Fumarate 2 puff IH BID inhaler 09/30/18 [SYMBICORT 160/4.5mcg -] Guaifenesin/D-Methorphan Hb 5 ml PO Q4H PRN ml 09/30/18 [Diabetic Tussin Dm -] Insulin (Levemir) [Levemir Vial] 15 units SQ BID@0700,2200 units 09/30/18 Tiotropium [place] [Spiriva 2 puff IH DAILY inhaler 09/30/18 Respimat] predniSONE [Deltasone -] 30 mg PO BID tablet 09/30/18 Prednisone 30 mg PO BID #100 tablet 10/01/18 Allergies Allergy/AdvReac Type Severity Reaction Status Date / Time Iodinated Contrast- Oral and AdvReac Intermediate Nausea Verified 08/29/18 14:38 IV Dye REVIEW OF SYSTEMS: CONSTITUTIONAL: Absent: diaphoresis, generalized weakness, CARDIOVASCULAR: +: chest pain, + irregular heart rate,+ peripheral edema RESPIRATORY: + shortness of breath, dyspnea with exertion, wheezing, GASTROINTESTINAL: Absent: abdominal pain, abdominal distension, nausea, vomiting, diarrhea, MUSCULOSKELETAL: Absent: myalgia, arthralgia, SKIN: Absent: +rash, +itching NEUROLOGIC: +paresthesias, +mental status changes, PSYCHIATRIC: Absent: suicidal or homicidal ideation, hallucinations. PHYSICAL EXAM: GENERAL: Awake, alert, and fully oriented, in no acute distress. HEAD: Normal with no signs of trauma. EYES:sclera anicteric, conjunctiva clear. LUNGS: No auditory wheezes, No accessory muscle use. MUSCULOSKELETAL: Moving all extremities without limitation UPPER EXTREMITIES: warm, No peripheral edema. LOWER EXTREMITIES: Right LE with +2 pitting edema throughout LE compartments, soft, supple with mild ttp, diffuse erythema throughout and several small areas< 1x1cm of stage 2 ulcers seen over posterior compartments (mid calf and distal 1/ 3rd) clean well defined margins. fibrinous tissue seen at base with no evidence of d/c. excoriations seen throughout with no definitive rash, foot warm and well perfused with +2 pitting edema, +1 DP pulse and skin intact with no lesions /rash or ulcers. Left LE with similar findings, 2 pitting edema throughout LE compartments, soft , supple with mild ttp, diffuse erythema throughout and several small areas of early Venous stasis ulcers with blistering and ss d/c seen over anterior compartment (distal 1/3rd) excoriations seen throughout with no definitive rash , some smaller scars seen possibly related to chronic scratching. foot warm and well perfused with +2 pitting edema, +1 DP pulse and skin intact with no lesions /rash or ulcers. NEUROLOGICAL: Normal speech, gait not observed. PSYCH: Cooperative. Good eye contact. Appropriate mood and affect. SKIN: Warm, dry, normal turgor, no rashes Vital Signs Temperature 98 F 12/02/18 06:00 Pulse Rate 73 12/02/18 06:00 Respiratory Rate 18 12/02/18 06:00 Blood Pressure 120/83 12/02/18 06:00 O2 Sat by Pulse Oximetry (%) 95 12/01/18 21:00 Lab Results WBC 11.7 K/mm3 (4.0-10.0) H 12/02/18 05:30 RBC 4.66 M/mm3 (4.00-5.60) 12/02/18 05:30 Hgb 13.1 GM/dL (11.7-16.9) 12/02/18 05:30 Hct 40.7 % (35.4-49) 12/02/18 05:30 MCV 87.4 fl (80-96) 12/02/18 05:30 MCHC 32.1 g/dl (32.0-35.9) 12/02/18 05:30 RDW 18.9 % (11.9-15.9) H 12/02/18 05:30 Plt Count 173 K/MM3 (134-434) 12/02/18 05:30 Sodium 137 mmol/L (136-145) 12/02/18 05:30 Potassium 3.9 mmol/L (3.5-5.1) 12/02/18 05:30 Chloride 93 mmol/L (98-107) L 12/02/18 05:30 Carbon Dioxide 36 mmol/L (21-32) H 12/02/18 05:30 Anion Gap 8 MMOL/L (8-16) 12/02/18 05:30 BUN 39 mg/dL (7-18) H 12/02/18 05:30 Creatinine 0.9 mg/dL (0.55-1.3) 12/02/18 05:30 Random Glucose 93 mg/dL (74-106) 12/02/18 05:30 Calcium 8.6 mg/dL (8.5-10.1) 12/02/18 05:30 Blood Type O POSITIVE 11/26/18 09:10 Antibody Screen Negative 11/26/18 09:10 INR 1.84 (0.83-1.09) H 11/25/18 17:25 Problem List - Problems (1) Stasis dermatitis of both legs Assessment/Plan: 63yo male with multiple co-morbidities admitted for CHF exacerbation with chronic venous stasis dermatitis. 1) bacitracin to leg wounds daily 2) Compressive chirag wraps b/l LE daily- include feet, Elevate b/l LE 3) podiatry consult appreciated for toenails 4) Abx per medicine 5) OOB as tolerated with cane 6) follow up in [facility] with Dr Browning as out patient. Evaluation and plan discussed with Dr Browning Code(s): I87.2 - VENOUS INSUFFICIENCY (CHRONIC) (PERIPHERAL) Visit type - Case Type Case Type: ED Admission - Emergency Emergency Visit: Yes ED Registration Date: 11/25/18 Care time: The patient presented to the Emergency Department on the above date and was hospitalized for further evaluation of their emergent condition. - New patient This patient is new to me today: Yes Date on this admission: 12/02/18
[2018-12-02] MEDS: ALBUTEROL SO4 0.083% IH SOL 2.5 MG/3 ML VIAL.NEB. NEB SCH ×3 (12:10→20:45)
[2018-12-02] MEDS: DIGOXIN 0.125 MG TABLET (FP) PO SCH (12:48)
[2018-12-02] MEDS: APIXABAN 5 MG TABLET PO SCH ×2 (12:49→21:32)
[2018-12-02] MEDS: ISOSORBIDE MONONITRATE 60 MG TAB.SR.24H (FP) PO SCH (12:49)
[2018-12-02] MEDS: predniSONE 20 MG TABLET (UD) PO SCH (12:49)
[2018-12-02] MEDS: PANTOPRAZOLE 20 MG TABLET (FP) PO SCH (12:49)
[2018-12-02] MEDS: TIOTROPIUM BROMIDE 2.5 MCG (SPIRIVA) RESPIMAT INHALER IH SCH (12:50)
[2018-12-02] MEDS: BUDESONIDE/FORMETEROL FUMARATE 160/4.5 mcg INHALER IH SCH ×2 (12:50→21:31)
--- NOTE | 2018-12-02 13:19 | PN ---
Progress Note, Physician History of Present Illness: Pt seen and examined at bedside. He still complains of edema but feels that it is a little better. - Current Medication List Current Medications: Active Medications Albuterol Sulfate (Ventolin 0.083% Nebulizer Soln -) 1 amp NEB RQID [facility] Apixaban (Eliquis -) 5 mg PO BID [facility] Last Admin: 12/02/18 12:49 Dose: 5 mg Bacitracin (Bacitracin -) 1 applic TP DAILY [facility] Budesonide/Formoterol Fumarate (Symbicort 160/4.5mcg -) 2 puff IH BID [facility] Last Admin: 12/02/18 12:50 Dose: 2 puff Digoxin (Lanoxin -) 0.125 mg PO DAILY [facility] Last Admin: 12/02/18 12:48 Dose: 0.125 mg Furosemide (Lasix Injection -) 40 mg IVPUSH BID@0600,1400 [facility] Last Admin: 12/02/18 12:59 Dose: Not Given Guaifenesin/Codeine Phosphate (Robitussin Ac -) 5 ml PO TID PRN PRN Reason: COUGH Hydroxyzine HCl (Atarax -) 25 mg PO Q6H PRN PRN Reason: FOR ITCHING Last Admin: 12/01/18 21:29 Dose: 25 mg Insulin Aspart (Novolog Vial Sliding Scale -) 1 vial SQ ACHS [facility]; Protocol Last Admin: 12/02/18 12:45 Dose: Not Given Insulin Detemir (Levemir Vial) 15 units SQ BID@0700,2200 [facility] Last Admin: 12/02/18 06:27 Dose: 15 unit Isosorbide Mononitrate (Imdur -) 60 mg PO DAILY [facility] Last Admin: 12/02/18 12:49 Dose: 60 mg Metoprolol Succinate (Toprol Xl -) 50 mg PO DAILY [facility] Last Admin: 12/02/18 12:49 Dose: 50 mg Montelukast Sodium (Singulair -) 10 mg PO HS [facility] Last Admin: 12/01/18 21:28 Dose: 10 mg Multi-Ingredient Lotion (Eucerin (Large Jar) -) 1 applic TP BID PRN PRN Reason: DRY SKIN Pantoprazole Sodium (Protonix -) 20 mg PO DAILY [facility] Last Admin: 12/02/18 12:49 Dose: 20 mg Prednisone (Deltasone -) 20 mg PO DAILY [facility] Last Admin: 12/02/18 12:49 Dose: 20 mg Tiotropium [place] (Spiriva Respimat) 2 puff IH DAILY [facility] Last Admin: 12/02/18 12:50 Dose: 2 puff Zinc Acetate/Diphenhydramine (Benadryl 2% Cream) 1 applic TP BID [facility] Last Admin: 12/02/18 12:49 Dose: 1 applic - Objective Vital Signs: Vital Signs Temperature 98 F 12/02/18 06:00 Pulse Rate 85 12/02/18 12:48 Respiratory Rate 18 12/02/18 06:00 Blood Pressure 120/83 12/02/18 06:00 O2 Sat by Pulse Oximetry (%) 95 12/01/18 21:00 Constitutional: Yes: Calm Eyes: Yes: Conjunctiva Clear HENT: Yes: Atraumatic Cardiovascular: Yes: S1, S2 Respiratory: Yes: On Nasal O2, Rhonchi Gastrointestinal: Yes: Soft, Abdomen, Obese Genitourinary: Yes: WNL Musculoskeletal: Yes: WNL Edema: Yes Edema: LLE: 2+, RLE: 2+ Neurological: Yes: Oriented Psychiatric: Yes: Oriented Labs: CBC, BMP 12/02/18 05:30 12/02/18 05:30 INR, PTT INR 1.84 (0.83-1.09) H 11/25/18 17:25 Problem List - Problems (1) Acute kidney injury Code(s): N17.9 - ACUTE KIDNEY FAILURE, UNSPECIFIED (2) Acute on chronic diastolic CHF (congestive heart failure) Code(s): I50.33 - ACUTE ON CHRONIC DIASTOLIC (CONGESTIVE) HEART FAILURE (3) CHF exacerbation Code(s): I50.9 - HEART FAILURE, UNSPECIFIED Qualifiers: Heart failure type: unspecified Qualified Code(s): I50.9 - Heart failure, unspecified Assessment/Plan Current Medications Generic Name Dose Route Start Last Admin Trade Name Freq PRN Reason Stop Dose Admin Albuterol Sulfate 1 amp 12/02/18 12:00 Ventolin 0.083% Nebulizer Soln - NEB RQID [facility] Apixaban 5 mg 12/01/18 22:00 12/02/18 12:49 Eliquis - PO 5 mg BID [facility] Administration Bacitracin 1 applic 12/02/18 13:15 Bacitracin - TP DAILY [facility] Budesonide/Formoterol Fumarate 2 puff 11/25/18 22:00 12/02/18 12:50 Symbicort 160/4.5mcg - IH 2 puff BID [facility] Administration Digoxin 0.125 mg 12/01/18 10:01 12/02/18 12:48 Lanoxin - PO 0.125 mg DAILY [facility] Administration Furosemide 40 mg 11/29/18 14:00 12/02/18 12:59 Lasix Injection - IVPUSH Not Given BID@0600,1400 [facility] Guaifenesin/Codeine Phosphate 5 ml 12/02/18 08:41 Robitussin Ac - PO TID PRN COUGH Hydroxyzine HCl 25 mg 11/30/18 14:39 12/01/18 21:29 Atarax - PO 25 mg Q6H PRN Administration FOR ITCHING Insulin Aspart 1 vial 11/25/18 22:00 12/02/18 12:45 Novolog Vial Sliding Scale - SQ Not Given ACHS [facility] Protocol Insulin Detemir 15 units 11/25/18 22:00 12/02/18 06:27 Levemir Vial SQ 15 unit BID@0700,2200 [facility] Administration Isosorbide Mononitrate 60 mg 11/26/18 10:00 12/02/18 12:49 Imdur - PO 60 mg DAILY [facility] Administration Metoprolol Succinate 50 mg 11/26/18 10:00 12/02/18 12:49 Toprol Xl - PO 50 mg DAILY [facility] Administration Montelukast Sodium 10 mg 11/25/18 22:00 12/01/18 21:28 Singulair - PO 10 mg HS [facility] Administration Multi-Ingredient Lotion 1 applic 11/30/18 12:07 Eucerin (Large Jar) - TP BID PRN DRY SKIN Pantoprazole Sodium 20 mg 12/01/18 11:45 12/02/18 12:49 Protonix - PO 20 mg DAILY [facility] Administration Prednisone 20 mg 11/30/18 10:00 12/02/18 12:49 Deltasone - PO 20 mg DAILY [facility] Administration Tiotropium [place] 2 puff 11/26/18 10:00 12/02/18 12:50 Spiriva Respimat IH 2 puff DAILY [facility] Administration Zinc Acetate/Diphenhydramine 1 applic 12/01/18 12:15 12/02/18 12:49 Benadryl 2% Cream TP 1 applic BID [facility] Administration Impression 1. CHF 2. hyponatremia 3. fluid overload 4. asthma 5. a-fib 6. DM 7. td Plan - repeat labs in am - cont IV lasix - vascular input appreciated - hold arb for now - will need a higher dose of lasix at home and will need better compliance with diet - taper steroids - pt still with significant edema - monitor volume status
[2018-12-02] MEDS: BACITRACIN 15 GM TUBE TOPICAL OINTMENT TP SCH (13:32)
--- NOTE | 2018-12-02 15:24 | CONSULT ---
Consult Consult Specialty:: Podiatry Reason for Consultation:: Mycotic big toe nails - History of Present Illness Chief Complaint: b/l big toe pain History of Present Illness: chronic mycotic nails b/l hallux - Past Medical History Cardio/Vascular: Yes: AFIB, CAD, CHF, HTN Pulmonary: Yes: COPD, Sleep Apnea Infectious Disease: Yes: Other (pneumonia and the flu) Psych: Yes: Anxiety, Panic (panic D/O) Endocrine: Yes: Diabetes Mellitus - Past Surgical History Past Surgical History: Yes: Stent - Alcohol/Substance Use Hx Alcohol Use: Yes (former heavy) History of Substance Use: reports: None - Smoking History Smoking history: Former smoker Have you smoked in the past 12 months: No Aproximately how many cigarettes per day: 0 If you are a former smoker, when did you quit?: 2yrs - Social History ADL: Independent (ambulates with cane) 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 History of Recent Travel: No Home Medications - Allergies Allergies/Adverse Reactions: Allergies Allergy/AdvReac Type Severity Reaction Status Date / Time Iodinated Contrast- Oral and AdvReac Intermediate Nausea Verified 08/29/18 14:38 IV Dye - Home Medications Home Medications: Ambulatory Orders Fluticasone/Salmeterol [Advair Hfa 115-21 Mcg Inhaler] 2 inh PO BID 02/07/18 Dabigatran Etexilate Mesylate [Pradaxa -] 150 mg PO BID cap 05/29/18 Digoxin [Lanoxin -] 0.25 mg PO DAILY tablet 05/29/18 Montelukast Na [Singulair -] 10 mg PO HS tablet 05/29/18 Potassium Chloride [K-Dur -] 20 meq PO DAILY tablet.er 05/29/18 Albuterol 2.5/Ipratropium 0.5 [Duoneb -] 1 amp NEB Q6H PRN amp 09/03/18 Atorvastatin Ca [Lipitor] 40 mg PO HS tablet 09/03/18 Hydrocortisone 0.5% Ointment [Hytone 0.5% Ointment -] 1 applic TP BID PRN tube 09/03/18 Insulin Sliding Scale [Novolog Vial Sliding Scale -] 1 vial SQ ACHS units 09/03 Isosorbide Mononitrate [Imdur -] 60 mg PO DAILY tab.sr.24h 09/03/18 Melatonin 10 mg PO HS tab 09/03/18 Metoprolol Succinate [Toprol XL -] 50 mg PO DAILY tab.sr.24h 09/03/18 Furosemide [Lasix -] 40 mg PO BID@0600,1400 09/24/18 Lisinopril [Prinivil] 5 mg PO DAILY 09/24/18 Nystatin Cream [Mycostatin Cream -] 1 applic TP BID 09/24/18 Acetaminophen [Tylenol .Regular Strength -] 650 mg PO Q6H PRN tablet 09/30/18 Budesonide/Formeterol Fumarate [SYMBICORT 160/4.5mcg -] 2 puff IH BID inhaler 09/30/18 Guaifenesin/D-Methorphan Hb [Diabetic Tussin Dm -] 5 ml PO Q4H PRN ml 09/30/18 Insulin (Levemir) [Levemir Vial] 15 units SQ BID@0700,2200 units 09/30/18 Tiotropium [place] [Spiriva Respimat] 2 puff IH DAILY inhaler 09/30/18 predniSONE [Deltasone -] 30 mg PO BID tablet 09/30/18 Prednisone 30 mg PO BID #100 tablet 10/01/18 Family Disease History - Family Disease History Family Disease History: Respiratory: Mother (Asthma, age 35), Other: Father (Alcoholic, ), Brother (6, healthy), Sister (7, healthy), Daughter (3, healthy) Other Family History: No family history of colorectal cancer, other GI malignancies, liver disease Physical Exam Vital Signs: Vital Signs Temperature 98 F 12/02/18 06:00 Pulse Rate 85 12/02/18 12:48 Respiratory Rate 18 12/02/18 06:00 Blood Pressure 120/83 12/02/18 06:00 O2 Sat by Pulse Oximetry (%) 95 12/01/18 21:00 Extremities: Yes: Other (+tender mycotic big toe nails, +subungual henamtoma lateral right big toe(states he banged it at home), -cellulitis of toes,- drainage of toes,) Labs: CBC, BMP 12/02/18 05:30 12/02/18 05:30 Assessment/Plan onychomycosis pain edema b/l legs chf Debride nails x 10. Discussed diabetic foot care. Needs foot care [id number].
[2018-12-02] MEDS: MONTELUKAST NA 10 MG TABLET PO SCH (21:32)
--- NOTE | 2018-12-02 22:13 | CONSULT ---
Consult Consult Specialty:: endocrine Referred by:: dr.[email or web address] gutiérrez Reason for Consultation:: dm 2 uncontrolled - History of Present Illness Chief Complaint: high sugars History of Present Illness: 63 year old male with CHF, CAD, c/o chest pain and high sugars,frequent urination,thirst,and blurred vision. in the setting of medication non- compliance. Chest pain is described as sharp, 8/10, radiating to arms bilaterally, constant, and denies worsening with exertion. He states he ran out of his medications which includes digoxin, metoprolol, pradax. insulin,or testing supplies. - Past Medical History Cardio/Vascular: Yes: AFIB, CAD, CHF, HTN Pulmonary: Yes: COPD, Sleep Apnea Infectious Disease: Yes: Other (pneumonia and the flu) Psych: Yes: Anxiety, Panic (panic D/O) Endocrine: Yes: Diabetes Mellitus - Past Surgical History Past Surgical History: Yes: Stent - Alcohol/Substance Use Hx Alcohol Use: Yes (former heavy) History of Substance Use: reports: None - Smoking History Smoking history: Former smoker Have you smoked in the past 12 months: No Aproximately how many cigarettes per day: 0 If you are a former smoker, when did you quit?: 2yrs - Social History ADL: Independent (ambulates with cane) 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 History of Recent Travel: No Home Medications - Allergies Allergies/Adverse Reactions: Allergies Allergy/AdvReac Type Severity Reaction Status Date / Time Iodinated Contrast- Oral and AdvReac Intermediate Nausea Verified 08/29/18 14:38 IV Dye - Home Medications Home Medications: Ambulatory Orders Fluticasone/Salmeterol [Advair Hfa 115-21 Mcg Inhaler] 2 inh PO BID 02/07/18 Dabigatran Etexilate Mesylate [Pradaxa -] 150 mg PO BID cap 05/29/18 Digoxin [Lanoxin -] 0.25 mg PO DAILY tablet 05/29/18 Montelukast Na [Singulair -] 10 mg PO HS tablet 05/29/18 Potassium Chloride [K-Dur -] 20 meq PO DAILY tablet.er 05/29/18 Albuterol 2.5/Ipratropium 0.5 [Duoneb -] 1 amp NEB Q6H PRN amp 09/03/18 Atorvastatin Ca [Lipitor] 40 mg PO HS tablet 09/03/18 Hydrocortisone 0.5% Ointment [Hytone 0.5% Ointment -] 1 applic TP BID PRN tube 09/03/18 Insulin Sliding Scale [Novolog Vial Sliding Scale -] 1 vial SQ ACHS units 09/03 Isosorbide Mononitrate [Imdur -] 60 mg PO DAILY tab.sr.24h 09/03/18 Melatonin 10 mg PO HS tab 09/03/18 Metoprolol Succinate [Toprol XL -] 50 mg PO DAILY tab.sr.24h 09/03/18 Furosemide [Lasix -] 40 mg PO BID@0600,1400 09/24/18 Lisinopril [Prinivil] 5 mg PO DAILY 09/24/18 Nystatin Cream [Mycostatin Cream -] 1 applic TP BID 09/24/18 Acetaminophen [Tylenol .Regular Strength -] 650 mg PO Q6H PRN tablet 09/30/18 Budesonide/Formeterol Fumarate [SYMBICORT 160/4.5mcg -] 2 puff IH BID inhaler 09/30/18 Guaifenesin/D-Methorphan Hb [Diabetic Tussin Dm -] 5 ml PO Q4H PRN ml 09/30/18 Insulin (Levemir) [Levemir Vial] 15 units SQ BID@0700,2200 units 09/30/18 Tiotropium [place] [Spiriva Respimat] 2 puff IH DAILY inhaler 09/30/18 predniSONE [Deltasone -] 30 mg PO BID tablet 09/30/18 Prednisone 30 mg PO BID #100 tablet 10/01/18 Family Disease History - Family Disease History Family Disease History: Respiratory: Mother (Asthma, age 35), Other: Father (Alcoholic, ), Brother (6, healthy), Sister (7, healthy), Daughter (3, healthy) Other Family History: No family history of colorectal cancer, other GI malignancies, liver disease Review of Systems - Review of Systems Constitutional: reports: Loss of Appetite Eyes: reports: Blurred Vision HENT: reports: No Symptoms Neck: reports: No Symptoms Cardiovascular: reports: Palpitations, Shortness of Breath Respiratory: reports: Exercise Intolerance Gastrointestinal: reports: Bloating Genitourinary: reports: No Symptoms Breasts: reports: No Symptoms Reported Musculoskeletal: reports: Muscle Pain, Muscle Cramps, Muscle Weakness Integumentary: reports: No Symptoms Neurological: reports: Numbness, Weakness Physical Exam Vital Signs: Vital Signs Temperature 97.8 F 12/02/18 14:00 Pulse Rate 88 12/02/18 14:00 Respiratory Rate 20 12/02/18 14:00 Blood Pressure 119/59 L 12/02/18 14:00 O2 Sat by Pulse Oximetry (%) 95 12/01/18 21:00 Constitutional: Yes: Anxious Eyes: Yes: EOM Intact HENT: Yes: Normocephalic Neck: Yes: Trachea Midline Cardiovascular: Yes: Tachycardia Respiratory: Yes: CTA Bilaterally Gastrointestinal: Yes: Normal Bowel Sounds ...Rectal Exam: Yes: Deferred Renal/: Yes: WNL Musculoskeletal: Yes: Joint Swelling, Muscle Pain Extremities: Yes: Delayed Capillary Refill Edema: LLE: 1+, RLE: 1+ Integumentary: Yes: Onychomycosis Neurological: Yes: Alert, Oriented, Numbness, Tingling Labs: CBC, BMP 12/02/18 05:30 12/02/18 05:30 Problem List - Problems (1) Acute on chronic diastolic CHF (congestive heart failure) Code(s): I50.33 - ACUTE ON CHRONIC DIASTOLIC (CONGESTIVE) HEART FAILURE (2) CHF exacerbation Code(s): I50.9 - HEART FAILURE, UNSPECIFIED Qualifiers: Heart failure type: unspecified Qualified Code(s): I50.9 - Heart failure, unspecified (3) Diabetes Code(s): E11.9 - TYPE 2 DIABETES MELLITUS WITHOUT COMPLICATIONS Qualifiers: Diabetes mellitus type: type 2 (4) Elevated LFTs Code(s): R94.5 - ABNORMAL RESULTS OF LIVER FUNCTION STUDIES (5) Atrial fibrillation Code(s): I48.91 - UNSPECIFIED ATRIAL FIBRILLATION Qualifiers: Atrial fibrillation type: persistent Qualified Code(s): I48.1 - Persistent atrial fibrillation Assessment/Plan Current Active Problems Acute kidney injury (Acute) Acute on chronic diastolic CHF (congestive heart failure) (Acute) CHF exacerbation (Acute) Chest pain (Acute) Diabetes (Acute) Elevated LFTs (Acute) Abnormal Lab Results 12/02/18 12/02/18 05:30 05:30 WBC 11.7 H RDW 18.9 H Absolute Neuts (auto) 9.1 H Monocytes % 11.8 H Chloride 93 L Carbon Dioxide 36 H BUN 39 H Total Bilirubin 1.6 H AST 57 H ALT 118 H Alkaline Phosphatase 411 H Total Protein 6.0 L Albumin 2.6 L Digoxin 0.65 L Laboratory Tests 12/02/18 12/02/18 12/02/18 05:30 05:41 12:39 Sodium 137 Potassium 3.9 Chloride 93 L Carbon Dioxide 36 H Anion Gap 8 BUN 39 H Creatinine 0.9 POC Glucometer 103 148 Calcium 8.6 12/02/18 12/02/18 18:06 21:11 Sodium Potassium Chloride Carbon Dioxide Anion Gap BUN Creatinine POC Glucometer 149 195 Calcium plan: levemir 15 units bid bgm achs novolog scale Laboratory Tests 11/28/18 11/30/18 12/02/18 05:30 16:03 05:30 Hemoglobin A1c % 8.3 H Total Bilirubin 1.6 H AST 57 H ALT 118 H TSH 1.38 D avoid diabetic oral agents
[2018-12-03 05:17] LABS: HBSAG SCREEN Negative (Negative); HEP B CORE AB, TOT Negative (Negative)
[2018-12-03] MEDS: INSULIN SLIDING SCALE (NOVOLOG) 1 VIAL SQ SCH ×4 (06:29→22:08)
[2018-12-03] MEDS: FUROSEMIDE 40 MG/4 ML INJECTABLE VIAL IVPUSH SCH ×2 (06:30→14:09)
[2018-12-03] MEDS: INSULIN (LEVEMIR) 100 UNITS/ML UNITS SQ SCH ×2 (06:30→22:11)
[2018-12-03 06:42] LABS: BASO % 0.1 % (0-2.0); EOS % 0.5 % (0-4.5); HEMATOCRIT 38.5 % (35.4-49); HEMOGLOBIN 12.5 GM/dL (11.7-16.9); LYMPH % 6.4 % (8-40); MCH 28.2 pg (25.7-33.7); MCHC 32.4 g/dl (32.0-35.9); MEAN CELL VOLUME 87.2 fl (80-96); MEAN PLT VOLUME 9.6 fl (7.5-11.1); MONO % 10.6 % (3.8-10.2); NEUT % 82.4 % (42.8-82.8); PLATELET COUNT 153 K/MM3 (134-434); RBC 4.41 M/mm3 (4.00-5.60); RDW 19.2 % (11.9-15.9); WHITE BLOOD COUNT 9.2 K/mm3 (4.0-10.0)
[2018-12-03] MEDS: ALBUTEROL SO4 0.083% IH SOL 2.5 MG/3 ML VIAL.NEB. NEB SCH ×4 (07:20→21:10)
[2018-12-03] MEDS ORDERED: PT OWN MED DRAWER 7, Y5N ONE (07:37)
[2018-12-03 07:49] LABS: ALBUMIN 2.6 g/dl (3.4-5.0); ALK PHOS 472 U/L (45-117); ANION GAP 9 MMOL/L (8-16); BILIRUBIN,TOTAL 1.3 mg/dL (0.2-1); BLOOD UREA NITROGEN 35 mg/dL (7-18); CALCIUM 8.6 mg/dL (8.5-10.1); CHLORIDE 96 mmol/L (98-107); CO2 32 mmol/L (21-32); GLUCOSE,RANDOM 168 mg/dL (74-106); POTASSIUM 3.8 mmol/L (3.5-5.1); SGOT/AST 52 U/L (15-37); SGPT/ALT 105 U/L (13-61); SODIUM 137 mmol/L (136-145); TOT PROT 5.9 g/dl (6.4-8.2)
--- NOTE | 2018-12-03 08:23 | PN ---
GI Progress Note Subjective: No abdominal pain states breathing is "so so" - Objective Vital Signs: Vital Signs Temperature 97.5 F L 12/03/18 06:00 Pulse Rate 82 12/03/18 06:00 Respiratory Rate 18 12/03/18 06:00 Blood Pressure 135/70 12/03/18 06:00 O2 Sat by Pulse Oximetry (%) 96 12/02/18 21:00 Constitutional: Calm Eyes: No: Sclera Icterus Cardiovascular: Yes: Pulse Irregular (regular rate) Respiratory: Yes: Diminished (at bases b/l) Gastrointestinal Inspection: No: Distention ...Auscultate: Yes: Normoactive Bowel Sounds ...Palpate: No: Tenderness ...Percussion: No: Tympanitic Edema: Yes (B/L LE edema) Edema: LLE: 2+, RLE: 2+ Neurological: Yes: Alert Labs: CBC, BMP 12/03/18 05:30 12/03/18 05:30 INR, PTT INR 1.84 (0.83-1.09) H 11/25/18 17:25 Laboratory Tests 12/02/18 05:30 Hepatitis A Ab Total Negative Hep Bs Antigen Negative Hep Bs Antibody Non reactive Hep B Core Total Ab Negative Hep C Ab Diagnostic <0.1 Problem List - Problems (1) Elevated LFTs Assessment/Plan: Suspected secondary to congestive hepatopathy Overall improvement with rising ALP For MRCP, hopefully for today Hepatitis B surface antibody negative. Will need hepatitis B vaccine. Explained to patient Code(s): R94.5 - ABNORMAL RESULTS OF LIVER FUNCTION STUDIES
--- NOTE | 2018-12-03 08:58 | PN ---
Progress Note, Physician - Current Medication List Current Medications: Active Medications Albuterol Sulfate (Ventolin 0.083% Nebulizer Soln -) 1 amp NEB RQID [facility] Last Admin: 12/02/18 20:45 Dose: 1 amp Apixaban (Eliquis -) 5 mg PO BID [facility] Last Admin: 12/02/18 21:32 Dose: 5 mg Bacitracin (Bacitracin -) 1 applic TP DAILY [facility] Last Admin: 12/02/18 13:32 Dose: 1 applic Budesonide/Formoterol Fumarate (Symbicort 160/4.5mcg -) 2 puff IH BID [facility] Last Admin: 12/02/18 21:31 Dose: 2 puff Digoxin (Lanoxin -) 0.125 mg PO DAILY [facility] Last Admin: 12/02/18 12:48 Dose: 0.125 mg Furosemide (Lasix Injection -) 40 mg IVPUSH BID@0600,1400 [facility] Last Admin: 12/03/18 06:30 Dose: 40 mg Guaifenesin/Codeine Phosphate (Robitussin Ac -) 5 ml PO TID PRN PRN Reason: COUGH Hydroxyzine HCl (Atarax -) 25 mg PO Q6H PRN PRN Reason: FOR ITCHING Last Admin: 12/01/18 21:29 Dose: 25 mg Insulin Aspart (Novolog Vial Sliding Scale -) 1 vial SQ ACHS [facility]; Protocol Last Admin: 12/03/18 06:29 Dose: 2 units Insulin Detemir (Levemir Vial) 15 units SQ BID@0700,2200 [facility] Last Admin: 12/03/18 06:30 Dose: 15 unit Isosorbide Mononitrate (Imdur -) 60 mg PO DAILY [facility] Last Admin: 12/02/18 12:49 Dose: 60 mg Metoprolol Succinate (Toprol Xl -) 50 mg PO DAILY [facility] Last Admin: 12/02/18 12:49 Dose: 50 mg Montelukast Sodium (Singulair -) 10 mg PO HS [facility] Last Admin: 12/02/18 21:32 Dose: 10 mg Multi-Ingredient Lotion (Eucerin (Large Jar) -) 1 applic TP BID PRN PRN Reason: DRY SKIN Pantoprazole Sodium (Protonix -) 20 mg PO DAILY [facility] Last Admin: 12/02/18 12:49 Dose: 20 mg Prednisone (Deltasone -) 20 mg PO DAILY [facility] Last Admin: 12/02/18 12:49 Dose: 20 mg Tiotropium [place] (Spiriva Respimat) 2 puff IH DAILY [facility] Last Admin: 12/02/18 12:50 Dose: 2 puff Zinc Acetate/Diphenhydramine (Benadryl 2% Cream) 1 applic TP BID [facility] Last Admin: 12/02/18 21:32 Dose: 1 applic - Objective Vital Signs: Vital Signs Temperature 97.5 F L 12/03/18 06:00 Pulse Rate 82 12/03/18 06:00 Respiratory Rate 18 12/03/18 06:00 Blood Pressure 135/70 12/03/18 06:00 O2 Sat by Pulse Oximetry (%) 96 12/02/18 21:00 Cardiovascular: Yes: S1, S2 Respiratory: Yes: On Nasal O2, Rhonchi Gastrointestinal: Yes: Normal Bowel Sounds, Soft Labs: CBC, BMP 12/03/18 05:30 12/03/18 05:30 INR, PTT INR 1.84 (0.83-1.09) H 11/25/18 17:25 Assessment/Plan - Problems (1) COPD (chronic obstructive pulmonary disease) Assessment/Plan: prednisone bronchodilators pulm on case ppi for gi ppx Code(s): J44.9 - CHRONIC OBSTRUCTIVE PULMONARY DISEASE, UNSPECIFIED (2) Acute on chronic diastolic CHF (congestive heart failure) Assessment/Plan: iv lasix monitor lytes Code(s): I50.33 - ACUTE ON CHRONIC DIASTOLIC (CONGESTIVE) HEART FAILURE (3) Elevated LFTs Assessment/Plan: appreciate GI consult stop statin and tylenol mrcp ordered maybe due to hepatic congestion Code(s): R94.5 - ABNORMAL RESULTS OF LIVER FUNCTION STUDIES (4) Atrial fibrillation Assessment/Plan: eliquis digoxin Code(s): I48.91 - UNSPECIFIED ATRIAL FIBRILLATION Qualifiers: Atrial fibrillation type: persistent Qualified Code(s): I48.1 - Persistent atrial fibrillation (5) Stasis dermatitis of both legs Assessment/Plan: bendaryl cream atarax prn vascular consult Code(s): I87.2 - VENOUS INSUFFICIENCY (CHRONIC) (PERIPHERAL) (6) Diabetes Assessment/Plan: hgba1c is 8.3 levemir endo Code(s): E11.9 - TYPE 2 DIABETES MELLITUS WITHOUT COMPLICATIONS Qualifiers: Diabetes mellitus type: type 2
[2018-12-03] MEDS: ISOSORBIDE MONONITRATE 60 MG TAB.SR.24H (FP) PO SCH (09:28)
[2018-12-03] MEDS: BACITRACIN 15 GM TUBE TOPICAL OINTMENT TP SCH (09:28)
[2018-12-03] MEDS: predniSONE 20 MG TABLET (UD) PO SCH (09:28)
[2018-12-03] MEDS: PANTOPRAZOLE 20 MG TABLET (FP) PO SCH (09:28)
[2018-12-03] MEDS: DIGOXIN 0.125 MG TABLET (FP) PO SCH (09:28)
[2018-12-03] MEDS: APIXABAN 5 MG TABLET PO SCH ×2 (09:28→22:08)
[2018-12-03] MEDS: BUDESONIDE/FORMETEROL FUMARATE 160/4.5 mcg INHALER IH SCH ×2 (09:29→22:07)
[2018-12-03] MEDS: TIOTROPIUM BROMIDE 2.5 MCG (SPIRIVA) RESPIMAT INHALER IH SCH (09:29)
--- NOTE | 2018-12-03 09:30 | PN ---
Progress Note, Physician History of Present Illness: Pt seen and examined at bedside. He is awake and alert. He feels that his edema is improving. - Current Medication List Current Medications: Active Medications Albuterol Sulfate (Ventolin 0.083% Nebulizer Soln -) 1 amp NEB RQID [facility] Last Admin: 12/02/18 20:45 Dose: 1 amp Apixaban (Eliquis -) 5 mg PO BID [facility] Last Admin: 12/02/18 21:32 Dose: 5 mg Bacitracin (Bacitracin -) 1 applic TP DAILY [facility] Last Admin: 12/02/18 13:32 Dose: 1 applic Budesonide/Formoterol Fumarate (Symbicort 160/4.5mcg -) 2 puff IH BID [facility] Last Admin: 12/02/18 21:31 Dose: 2 puff Digoxin (Lanoxin -) 0.125 mg PO DAILY [facility] Last Admin: 12/02/18 12:48 Dose: 0.125 mg Furosemide (Lasix Injection -) 40 mg IVPUSH BID@0600,1400 [facility] Last Admin: 12/03/18 06:30 Dose: 40 mg Guaifenesin/Codeine Phosphate (Robitussin Ac -) 5 ml PO TID PRN PRN Reason: COUGH Hydroxyzine HCl (Atarax -) 25 mg PO Q6H PRN PRN Reason: FOR ITCHING Last Admin: 12/01/18 21:29 Dose: 25 mg Insulin Aspart (Novolog Vial Sliding Scale -) 1 vial SQ ACHS [facility]; Protocol Last Admin: 12/03/18 06:29 Dose: 2 units Insulin Detemir (Levemir Vial) 15 units SQ BID@0700,2200 [facility] Last Admin: 12/03/18 06:30 Dose: 15 unit Isosorbide Mononitrate (Imdur -) 60 mg PO DAILY [facility] Last Admin: 12/02/18 12:49 Dose: 60 mg Metoprolol Succinate (Toprol Xl -) 50 mg PO DAILY [facility] Last Admin: 12/02/18 12:49 Dose: 50 mg Montelukast Sodium (Singulair -) 10 mg PO HS [facility] Last Admin: 12/02/18 21:32 Dose: 10 mg Multi-Ingredient Lotion (Eucerin (Large Jar) -) 1 applic TP BID PRN PRN Reason: DRY SKIN Pantoprazole Sodium (Protonix -) 20 mg PO DAILY [facility] Last Admin: 12/02/18 12:49 Dose: 20 mg Prednisone (Deltasone -) 20 mg PO DAILY [facility] Last Admin: 12/02/18 12:49 Dose: 20 mg Tiotropium [place] (Spiriva Respimat) 2 puff IH DAILY [facility] Last Admin: 12/02/18 12:50 Dose: 2 puff Zinc Acetate/Diphenhydramine (Benadryl 2% Cream) 1 applic TP BID [facility] Last Admin: 12/02/18 21:32 Dose: 1 applic - Objective Vital Signs: Vital Signs Temperature 97.5 F L 12/03/18 06:00 Pulse Rate 82 12/03/18 06:00 Respiratory Rate 18 12/03/18 06:00 Blood Pressure 135/70 12/03/18 06:00 O2 Sat by Pulse Oximetry (%) 96 12/02/18 21:00 Constitutional: Yes: Calm Eyes: Yes: Conjunctiva Clear HENT: Yes: Atraumatic Cardiovascular: Yes: S1, S2 Respiratory: Yes: CTA Bilaterally Gastrointestinal: Yes: Soft, Abdomen, Obese Genitourinary: Yes: WNL Edema: Yes Edema: LLE: 1+, RLE: 1+ Neurological: Yes: Oriented Psychiatric: Yes: Oriented Labs: CBC, BMP 12/03/18 05:30 12/03/18 05:30 INR, PTT INR 1.84 (0.83-1.09) H 11/25/18 17:25 Problem List - Problems (1) Acute kidney injury Code(s): N17.9 - ACUTE KIDNEY FAILURE, UNSPECIFIED (2) Acute on chronic diastolic CHF (congestive heart failure) Code(s): I50.33 - ACUTE ON CHRONIC DIASTOLIC (CONGESTIVE) HEART FAILURE (3) CHF exacerbation Code(s): I50.9 - HEART FAILURE, UNSPECIFIED Qualifiers: Heart failure type: unspecified Qualified Code(s): I50.9 - Heart failure, unspecified Assessment/Plan Current Medications Generic Name Dose Route Start Last Admin Trade Name Freq PRN Reason Stop Dose Admin Albuterol Sulfate 1 amp 12/02/18 12:00 12/02/18 20:45 Ventolin 0.083% Nebulizer Soln - NEB 1 amp RQID [facility] Administration Apixaban 5 mg 12/01/18 22:00 12/02/18 21:32 Eliquis - PO 5 mg BID [facility] Administration Bacitracin 1 applic 12/02/18 13:15 12/02/18 13:32 Bacitracin - TP 1 applic DAILY [facility] Administration Budesonide/Formoterol Fumarate 2 puff 11/25/18 22:00 12/02/18 21:31 Symbicort 160/4.5mcg - IH 2 puff BID [facility] Administration Digoxin 0.125 mg 12/01/18 10:01 12/02/18 12:48 Lanoxin - PO 0.125 mg DAILY [facility] Administration Furosemide 40 mg 11/29/18 14:00 12/03/18 06:30 Lasix Injection - IVPUSH 40 mg BID@0600,1400 [facility] Administration Guaifenesin/Codeine Phosphate 5 ml 12/02/18 08:41 Robitussin Ac - PO TID PRN COUGH Hydroxyzine HCl 25 mg 11/30/18 14:39 12/01/18 21:29 Atarax - PO 25 mg Q6H PRN Administration FOR ITCHING Insulin Aspart 1 vial 11/25/18 22:00 12/03/18 06:29 Novolog Vial Sliding Scale - SQ 2 units ACHS [facility] Administration Protocol Insulin Detemir 15 units 11/25/18 22:00 12/03/18 06:30 Levemir Vial SQ 15 unit BID@0700,2200 [facility] Administration Isosorbide Mononitrate 60 mg 11/26/18 10:00 12/02/18 12:49 Imdur - PO 60 mg DAILY [facility] Administration Metoprolol Succinate 50 mg 11/26/18 10:00 12/02/18 12:49 Toprol Xl - PO 50 mg DAILY [facility] Administration Montelukast Sodium 10 mg 11/25/18 22:00 12/02/18 21:32 Singulair - PO 10 mg HS [facility] Administration Multi-Ingredient Lotion 1 applic 11/30/18 12:07 Eucerin (Large Jar) - TP BID PRN DRY SKIN Pantoprazole Sodium 20 mg 12/01/18 11:45 12/02/18 12:49 Protonix - PO 20 mg DAILY [facility] Administration Prednisone 20 mg 11/30/18 10:00 12/02/18 12:49 Deltasone - PO 20 mg DAILY [facility] Administration Tiotropium [place] 2 puff 11/26/18 10:00 12/02/18 12:50 Spiriva Respimat IH 2 puff DAILY [facility] Administration Zinc Acetate/Diphenhydramine 1 applic 12/01/18 12:15 12/02/18 21:32 Benadryl 2% Cream TP 1 applic BID [facility] Administration Impression 1. CHF 2. hyponatremia 3. fluid overload 4. asthma 5. a-fib 6. DM 7. td Plan - cont IV lasix today - can switch to PO tomorrow - discussed diet and fluid intake with pt - will start low dose arb - monitor potassium and renal function - taper steroids - monitor volume status
[2018-12-03] MEDS: LOSARTAN POTASSIUM 25 MG TABLET PO SCH (10:09)
--- NOTE | 2018-12-03 10:32 | PN ---
Progress Note, Physician History of Present Illness: pulmonary alert,still c/o sob,abd discomfort - Current Medication List Current Medications: Active Medications Albuterol Sulfate (Ventolin 0.083% Nebulizer Soln -) 1 amp NEB RQID [facility] Last Admin: 12/03/18 07:20 Dose: 1 amp Apixaban (Eliquis -) 5 mg PO BID [facility] Last Admin: 12/03/18 09:28 Dose: 5 mg Bacitracin (Bacitracin -) 1 applic TP DAILY [facility] Last Admin: 12/03/18 09:28 Dose: 1 applic Budesonide/Formoterol Fumarate (Symbicort 160/4.5mcg -) 2 puff IH BID [facility] Last Admin: 12/03/18 09:29 Dose: 2 puff Digoxin (Lanoxin -) 0.125 mg PO DAILY [facility] Last Admin: 12/03/18 09:28 Dose: 0.125 mg Furosemide (Lasix Injection -) 40 mg IVPUSH BID@0600,1400 [facility] Last Admin: 12/03/18 06:30 Dose: 40 mg Guaifenesin/Codeine Phosphate (Robitussin Ac -) 5 ml PO TID PRN PRN Reason: COUGH Hydroxyzine HCl (Atarax -) 25 mg PO Q6H PRN PRN Reason: FOR ITCHING Last Admin: 12/01/18 21:29 Dose: 25 mg Insulin Aspart (Novolog Vial Sliding Scale -) 1 vial SQ ACHS [facility]; Protocol Last Admin: 12/03/18 06:29 Dose: 2 units Insulin Detemir (Levemir Vial) 15 units SQ BID@0700,2200 [facility] Last Admin: 12/03/18 06:30 Dose: 15 unit Isosorbide Mononitrate (Imdur -) 60 mg PO DAILY [facility] Last Admin: 12/03/18 09:28 Dose: 60 mg Losartan Potassium (Cozaar -) 25 mg PO DAILY [facility] Metoprolol Succinate (Toprol Xl -) 50 mg PO DAILY [facility] Last Admin: 12/03/18 09:29 Dose: 50 mg Montelukast Sodium (Singulair -) 10 mg PO HS [facility] Last Admin: 12/02/18 21:32 Dose: 10 mg Multi-Ingredient Lotion (Eucerin (Large Jar) -) 1 applic TP BID PRN PRN Reason: DRY SKIN Pantoprazole Sodium (Protonix -) 20 mg PO DAILY [facility] Last Admin: 12/03/18 09:28 Dose: 20 mg Prednisone (Deltasone -) 20 mg PO DAILY [facility] Last Admin: 12/03/18 09:28 Dose: 20 mg Tiotropium [place] (Spiriva Respimat) 2 puff IH DAILY [facility] Last Admin: 12/03/18 09:29 Dose: 2 puff Zinc Acetate/Diphenhydramine (Benadryl 2% Cream) 1 applic TP BID [facility] Last Admin: 12/03/18 09:29 Dose: 1 applic - Objective Vital Signs: Vital Signs Temperature 97.5 F L 12/03/18 06:00 Pulse Rate 88 12/03/18 09:28 Respiratory Rate 18 12/03/18 06:00 Blood Pressure 135/70 12/03/18 06:00 O2 Sat by Pulse Oximetry (%) 96 12/02/18 21:00 Constitutional: Yes: Well Nourished, Calm Eyes: Yes: WNL HENT: Yes: WNL Neck: Yes: WNL Cardiovascular: Yes: Pulse Irregular, S1, S2 Respiratory: Yes: Rales (bibasilar crackles) Gastrointestinal: Yes: Normal Bowel Sounds, Soft Extremities: Yes: Other (wrapped) Edema: Yes Labs: CBC, BMP 12/03/18 05:30 12/03/18 05:30 INR, PTT INR 1.84 (0.83-1.09) H 11/25/18 17:25 Problem List - Problems (1) Acute kidney injury Code(s): N17.9 - ACUTE KIDNEY FAILURE, UNSPECIFIED (2) Elevated LFTs Code(s): R94.5 - ABNORMAL RESULTS OF LIVER FUNCTION STUDIES (3) Acute on chronic diastolic CHF (congestive heart failure) Code(s): I50.33 - ACUTE ON CHRONIC DIASTOLIC (CONGESTIVE) HEART FAILURE Assessment/Plan Problem List - Problems (1) Chest tightness Code(s): R07.89 - OTHER CHEST PAIN (2) Atrial fibrillation Code(s): I48.91 - UNSPECIFIED ATRIAL FIBRILLATION Qualifiers: Atrial fibrillation type: persistent Qualified Code(s): I48.1 - Persistent atrial fibrillation (3) CAD (coronary artery disease) Code(s): I25.10 - ATHSCL HEART DISEASE OF [place] CORONARY ARTERY W/O ANG PCTRS Qualifiers: Coronary Disease-Associated Artery/Lesion type: [place] artery [place] vs. transplanted heart: [place] heart Associated angina: without angina Qualified Code(s): I25.10 - Atherosclerotic heart disease of [place] coronary artery without angina pectoris (4) CHF (congestive heart failure) Code(s): I50.9 - HEART FAILURE, UNSPECIFIED Qualifiers: Heart failure type: unspecified Heart failure chronicity: acute on chronic Qualified Code(s): I50.9 - Heart failure, unspecified (5) COPD with acute exacerbation Code(s): J44.1 - CHRONIC OBSTRUCTIVE PULMONARY DISEASE W (ACUTE) EXACERBATION (6) Hypertension Code(s): I10 - ESSENTIAL (PRIMARY) HYPERTENSION Qualifiers: Hypertension type: essential hypertension Qualified Code(s): I10 - Essential (primary) hypertension (7) Pulmonary HTN Code(s): I27.20 - PULMONARY HYPERTENSION, UNSPECIFIED (8) Shortness of breath Code(s): R06.02 - SHORTNESS OF BREATH Assessment/Plan IMP ACUTE ON CHRONIC CHF NON-ISCHEMIC CARDIOMYOPATHY COPD EXACERBATION ASHD S/P STENT AFIB LIKELY OSAS AHI 38.1 ON SLEEP SCREEN PULMONARY HTN ELEVATED LFTS ACUTE KIDNEY INJURY NIDDM S/P HYPOGLYCEMIC EPISODE HYPONATREMIA CORRECTED PLAN LASIX IV INHALED BRONCHODILATORS DAILY WT PREDNISONE O2 AC TREND LFTS MONITOR LYTES,BLOOD SUGARS,RENAL FUNCTION,NA BIPAP AT NIGHT CHECK ABD MRI DR TEJEDA Problem List - Problems (1) Chest tightness Code(s): R07.89 - OTHER CHEST PAIN (2) Atrial fibrillation Code(s): I48.91 - UNSPECIFIED ATRIAL FIBRILLATION Qualifiers: Atrial fibrillation type: persistent Qualified Code(s): I48.1 - Persistent atrial fibrillation (3) CAD (coronary artery disease) Code(s): I25.10 - ATHSCL HEART DISEASE OF [place] CORONARY ARTERY W/O ANG PCTRS Qualifiers: Coronary Disease-Associated Artery/Lesion type: [place] artery [place] vs. transplanted heart: [place] heart Associated angina: without angina Qualified Code(s): I25.10 - Atherosclerotic heart disease of [place] coronary artery without angina pectoris (4) CHF (congestive heart failure) Code(s): I50.9 - HEART FAILURE, UNSPECIFIED Qualifiers: Heart failure type: unspecified Heart failure chronicity: acute on chronic Qualified Code(s): I50.9 - Heart failure, unspecified (5) COPD with acute exacerbation Code(s): J44.1 - CHRONIC OBSTRUCTIVE PULMONARY DISEASE W (ACUTE) EXACERBATION (6) Hypertension Code(s): I10 - ESSENTIAL (PRIMARY) HYPERTENSION Qualifiers: Hypertension type: essential hypertension Qualified Code(s): I10 - Essential (primary) hypertension (7) Pulmonary HTN Code(s): I27.20 - PULMONARY HYPERTENSION, UNSPECIFIED (8) Shortness of breath Code(s): R06.02 - SHORTNESS OF BREATH Problem List - Problems (1) Acute kidney injury Code(s): N17.9 - ACUTE KIDNEY FAILURE, UNSPECIFIED (2) Elevated LFTs Code(s): R94.5 - ABNORMAL RESULTS OF LIVER FUNCTION STUDIES (3) Acute on chronic diastolic CHF (congestive heart failure) Code(s): I50.33 - ACUTE ON CHRONIC DIASTOLIC (CONGESTIVE) HEART FAILURE
--- NOTE | 2018-12-03 12:43 | PN ---
Progress Note, Physician Chief Complaint: Shortness of breath and leg swelling History of Present Illness: 63 year old male with a PMHx of HTN, DM, HLD, mild non-obstructive CAD from cardiac cath on 07/25/2016 at [facility], systolic CHF secondary to non-ischemic cardiomyopathy with known low EF 30-35% 08/2018, chronic afib (on pradaxa), COPD , admitted 11/25/2018 CHF exacerbation with massive weeping edema. Medication non adherence and dietary indiscretion noted. He had chest discomfort 11/28/2018 without ECG changes. - Current Medication List Current Medications: Active Medications Albuterol Sulfate (Ventolin 0.083% Nebulizer Soln -) 1 amp NEB RQID [facility] Last Admin: 12/03/18 11:52 Dose: 1 amp Apixaban (Eliquis -) 5 mg PO BID [facility] Last Admin: 12/03/18 09:28 Dose: 5 mg Bacitracin (Bacitracin -) 1 applic TP DAILY [facility] Last Admin: 12/03/18 09:28 Dose: 1 applic Budesonide/Formoterol Fumarate (Symbicort 160/4.5mcg -) 2 puff IH BID [facility] Last Admin: 12/03/18 09:29 Dose: 2 puff Digoxin (Lanoxin -) 0.125 mg PO DAILY [facility] Last Admin: 12/03/18 09:28 Dose: 0.125 mg Furosemide (Lasix Injection -) 40 mg IVPUSH BID@0600,1400 [facility] Last Admin: 12/03/18 06:30 Dose: 40 mg Guaifenesin/Codeine Phosphate (Robitussin Ac -) 5 ml PO TID PRN PRN Reason: COUGH Hydroxyzine HCl (Atarax -) 25 mg PO Q6H PRN PRN Reason: FOR ITCHING Last Admin: 12/01/18 21:29 Dose: 25 mg Insulin Aspart (Novolog Vial Sliding Scale -) 1 vial SQ ACHS [facility]; Protocol Last Admin: 12/03/18 06:29 Dose: 2 units Insulin Detemir (Levemir Vial) 15 units SQ BID@0700,2200 [facility] Last Admin: 12/03/18 06:30 Dose: 15 unit Isosorbide Mononitrate (Imdur -) 60 mg PO DAILY [facility] Last Admin: 12/03/18 09:28 Dose: 60 mg Losartan Potassium (Cozaar -) 25 mg PO DAILY [facility] Metoprolol Succinate (Toprol Xl -) 50 mg PO DAILY [facility] Last Admin: 12/03/18 09:29 Dose: 50 mg Montelukast Sodium (Singulair -) 10 mg PO HS [facility] Last Admin: 12/02/18 21:32 Dose: 10 mg Multi-Ingredient Lotion (Eucerin (Large Jar) -) 1 applic TP BID PRN PRN Reason: DRY SKIN Pantoprazole Sodium (Protonix -) 20 mg PO DAILY [facility] Last Admin: 12/03/18 09:28 Dose: 20 mg Prednisone (Deltasone -) 20 mg PO DAILY [facility] Last Admin: 12/03/18 09:28 Dose: 20 mg Tiotropium [place] (Spiriva Respimat) 2 puff IH DAILY [facility] Last Admin: 12/03/18 09:29 Dose: 2 puff Zinc Acetate/Diphenhydramine (Benadryl 2% Cream) 1 applic TP BID [facility] Last Admin: 12/03/18 09:29 Dose: 1 applic - Objective Vital Signs: Vital Signs Temperature 97.5 F L 12/03/18 06:00 Pulse Rate 88 12/03/18 09:28 Respiratory Rate 18 12/03/18 06:00 Blood Pressure 135/70 12/03/18 06:00 O2 Sat by Pulse Oximetry (%) 96 12/02/18 21:00 Constitutional: Yes: No Distress, Calm, Obese Eyes: Yes: WNL, Conjunctiva Clear, EOM Intact HENT: Yes: WNL, Atraumatic, Normocephalic Neck: Yes: WNL, Supple, Trachea Midline Cardiovascular: Yes: Pulse Irregular, JVD, Murmur, S1 Respiratory: Yes: Rales, SOB Gastrointestinal: Yes: WNL, Normal Bowel Sounds, Soft ...Rectal Exam: Yes: Deferred Genitourinary: Yes: WNL Musculoskeletal: Yes: Back Pain Extremities: Yes: Other (Bilateral leg edema) Edema: LLE: 1+, RLE: 1+ Peripheral Pulses: Left Radial: 1+, Right Radial: 1+, Left [place]is Pedis: 1+, Right Dorsalis Pedis: 1+, Left Femoral: 1+, Right Femoral: 1+ Integumentary: Yes: WNL Neurological: Yes: WNL, Alert, Oriented Psychiatric: Yes: WNL, Alert, Oriented Labs: CBC, BMP 12/03/18 05:30 12/03/18 05:30 INR, PTT INR 1.84 (0.83-1.09) H 11/25/18 17:25 Assessment/Plan 63 year old male with a PMHx of HTN, DM, HLD, mild non-obstructive CAD from cardiac cath on 07/25/2016 at [facility], systolic CHF secondary to non-ischemic cardiomyopathy with known low EF 30-35% 08/2018, chronic afib (on pradaxa), COPD , admitted 11/25/2018 CHF exacerbation with massive weeping edema. Medication non adherence and dietary indiscretion noted. He had chest discomfort 11/28/2018 without ECG changes. The patient is gradually improving. He is symptomatically better. He remains fluid overloaded. Please remove all fluids from the bedside. No ice cubes either. Strict salt and fluid restriction. Continue Lasix 40 mg IV twice daily. Continue the other medications as currently. Ventricular rates are well controlled in atrial fibrillation. Short run of nonsustained VT's The defibrillator should be considered, if patient agrees, prior to discharge.
[2018-12-03] MEDS: MONTELUKAST NA 10 MG TABLET PO SCH (22:08)
[2018-12-04] MEDS: INSULIN (LEVEMIR) 100 UNITS/ML UNITS SQ SCH (06:40)
[2018-12-04] MEDS: INSULIN SLIDING SCALE (NOVOLOG) 1 VIAL SQ SCH ×2 (06:40→13:46)
[2018-12-04] MEDS: FUROSEMIDE 40 MG/4 ML INJECTABLE VIAL IVPUSH SCH (06:40)
[2018-12-04] MEDS: ALBUTEROL SO4 0.083% IH SOL 2.5 MG/3 ML VIAL.NEB. NEB SCH ×2 (08:26→11:47)
[2018-12-04 08:29] LABS: ALBUMIN 2.7 g/dl (3.4-5.0); ALK PHOS 374 U/L (45-117); ANION GAP 9 MMOL/L (8-16); BILIRUBIN,DIRECT 0.9 mg/dL (0.0-0.2); BILIRUBIN,TOTAL 1.3 mg/dL (0.2-1); BLOOD UREA NITROGEN 35 mg/dL (7-18); CALCIUM 8.1 mg/dL (8.5-10.1); CHLORIDE 98 mmol/L (98-107); CO2 32 mmol/L (21-32); CREATININE 0.9 mg/dL (0.55-1.3); GLUCOSE,RANDOM 128 mg/dL (74-106); POTASSIUM 3.6 mmol/L (3.5-5.1); SGOT/AST 43 U/L (15-37); SGPT/ALT 92 U/L (13-61); SODIUM 139 mmol/L (136-145); TOT PROT 5.8 g/dl (6.4-8.2); TOT PROT 5.9 g/dl (6.4-8.2)
[2018-12-04] MEDS: predniSONE 20 MG TABLET (UD) PO SCH (10:19)
[2018-12-04] MEDS: LOSARTAN POTASSIUM 25 MG TABLET PO SCH (10:19)
[2018-12-04] MEDS: ISOSORBIDE MONONITRATE 60 MG TAB.SR.24H (FP) PO SCH (10:19)
[2018-12-04] MEDS: PANTOPRAZOLE 20 MG TABLET (FP) PO SCH (10:19)
[2018-12-04] MEDS: DIGOXIN 0.125 MG TABLET (FP) PO SCH (10:19)
[2018-12-04] MEDS: APIXABAN 5 MG TABLET PO SCH (10:19)
[2018-12-04] MEDS: BUDESONIDE/FORMETEROL FUMARATE 160/4.5 mcg INHALER IH SCH (10:20)
[2018-12-04 10:21] VITALS: PULSE 82
--- NOTE | 2018-12-04 10:26 | PN ---
Progress Note (short form) - Note Progress Note: Still with some MICHEL, but slowly improving. Some abdominal discomfort. Intake & Output 12/01/18 12/02/18 12/03/18 12/04/18 23:59 23:59 23:59 23:59 Intake Total 130 990 430 Output Total 3050 4600 2650 1075 Balance -2920 -4600 -1660 -645 Weight 243 lb 12.8 oz 236 lb 235 lb 12.8 oz Last Vital Signs Temp Pulse Resp BP Pulse Ox 98.2 F 82 18 149/64 96 12/04/18 06:00 12/04/18 10:19 12/04/18 06:00 12/04/18 06:00 12/03/18 21:00 Active Medications Albuterol Sulfate (Ventolin 0.083% Nebulizer Soln -) 1 amp NEB RQID [facility] Last Admin: 12/04/18 08:26 Dose: 1 amp Apixaban (Eliquis -) 5 mg PO BID [facility] Last Admin: 12/04/18 10:19 Dose: 5 mg Bacitracin (Bacitracin -) 1 applic TP DAILY [facility] Last Admin: 12/03/18 09:28 Dose: 1 applic Budesonide/Formoterol Fumarate (Symbicort 160/4.5mcg -) 2 puff IH BID [facility] Last Admin: 12/04/18 10:20 Dose: 2 puff Digoxin (Lanoxin -) 0.125 mg PO DAILY [facility] Last Admin: 12/04/18 10:19 Dose: 0.125 mg Furosemide (Lasix Injection -) 40 mg IVPUSH BID@0600,1400 [facility] Last Admin: 12/04/18 06:40 Dose: 40 mg Guaifenesin/Codeine Phosphate (Robitussin Ac -) 5 ml PO TID PRN PRN Reason: COUGH Hydroxyzine HCl (Atarax -) 25 mg PO Q6H PRN PRN Reason: FOR ITCHING Last Admin: 12/01/18 21:29 Dose: 25 mg Insulin Aspart (Novolog Vial Sliding Scale -) 1 vial SQ ACHS [facility]; Protocol Last Admin: 12/04/18 06:40 Dose: Not Given Insulin Detemir (Levemir Vial) 15 units SQ BID@0700,2200 [facility] Last Admin: 12/04/18 06:40 Dose: Not Given Isosorbide Mononitrate (Imdur -) 60 mg PO DAILY [facility] Last Admin: 12/04/18 10:19 Dose: 60 mg Losartan Potassium (Cozaar -) 25 mg PO DAILY [facility] Last Admin: 12/04/18 10:19 Dose: 25 mg Metoprolol Succinate (Toprol Xl -) 50 mg PO DAILY [facility] Last Admin: 12/04/18 10:20 Dose: 50 mg Montelukast Sodium (Singulair -) 10 mg PO HS [facility] Last Admin: 12/03/18 22:08 Dose: 10 mg Multi-Ingredient Lotion (Eucerin (Large Jar) -) 1 applic TP BID PRN PRN Reason: DRY SKIN Pantoprazole Sodium (Protonix -) 20 mg PO DAILY [facility] Last Admin: 12/04/18 10:19 Dose: 20 mg Prednisone (Deltasone -) 20 mg PO DAILY [facility] Last Admin: 12/04/18 10:19 Dose: 20 mg Tiotropium [place] (Spiriva Respimat) 2 puff IH DAILY [facility] Last Admin: 12/03/18 09:29 Dose: 2 puff Zinc Acetate/Diphenhydramine (Benadryl 2% Cream) 1 applic TP BID [facility] Last Admin: 12/03/18 22:10 Dose: 1 applic Constitutional: Yes: NAD Eyes: Yes: WNL HENT: Yes: WNL Neck: Yes: WNL Cardiovascular: Yes: Pulse Irregular, S1, S2 Respiratory: Yes: Bibasilar Rales Gastrointestinal: Yes: Normal Bowel Sounds, Soft Extremities: Yes: Other (wrapped) Edema: Yes Labs: Laboratory Results - last 24 hr 12/03/18 12/03/18 12/04/18 12:41 22:01 05:40 Sodium 139 Potassium 3.6 Chloride 98 Carbon Dioxide 32 Anion Gap 9 BUN 35 H Creatinine 0.9 Creat Clearance w eGFR > 60 POC Glucometer 130 127 Random Glucose 128 H Calcium 8.1 L Total Bilirubin 1.3 H Direct Bilirubin AST 43 H ALT 92 H Alkaline Phosphatase 374 H Total Protein 5.9 L Albumin 2.7 L 12/04/18 12/04/18 05:40 06:39 Sodium Potassium Chloride Carbon Dioxide Anion Gap BUN Creatinine Creat Clearance w eGFR POC Glucometer 110 Random Glucose Calcium Total Bilirubin 1.3 H Direct Bilirubin 0.9 H AST 41 H ALT 93 H Alkaline Phosphatase 377 H Total Protein 5.8 L Albumin 2.7 L Problem List - Problems (1) Acute kidney injury Code(s): N17.9 - ACUTE KIDNEY FAILURE, UNSPECIFIED (2) Elevated LFTs Code(s): R94.5 - ABNORMAL RESULTS OF LIVER FUNCTION STUDIES (3) Acute on chronic diastolic CHF (congestive heart failure) Code(s): I50.33 - ACUTE ON CHRONIC DIASTOLIC (CONGESTIVE) HEART FAILURE Assessment/Plan Problem List - Problems (1) Chest tightness Code(s): R07.89 - OTHER CHEST PAIN (2) Atrial fibrillation Code(s): I48.91 - UNSPECIFIED ATRIAL FIBRILLATION Qualifiers: Atrial fibrillation type: persistent Qualified Code(s): I48.1 - Persistent atrial fibrillation (3) CAD (coronary artery disease) Code(s): I25.10 - ATHSCL HEART DISEASE OF [place] CORONARY ARTERY W/O ANG PCTRS Qualifiers: Coronary Disease-Associated Artery/Lesion type: [place] artery [place] vs. transplanted heart: [place] heart Associated angina: without angina Qualified Code(s): I25.10 - Atherosclerotic heart disease of [place] coronary artery without angina pectoris (4) CHF (congestive heart failure) Code(s): I50.9 - HEART FAILURE, UNSPECIFIED Qualifiers: Heart failure type: unspecified Heart failure chronicity: acute on chronic Qualified Code(s): I50.9 - Heart failure, unspecified (5) COPD with acute exacerbation Code(s): J44.1 - CHRONIC OBSTRUCTIVE PULMONARY DISEASE W (ACUTE) EXACERBATION (6) Hypertension Code(s): I10 - ESSENTIAL (PRIMARY) HYPERTENSION Qualifiers: Hypertension type: essential hypertension Qualified Code(s): I10 - Essential (primary) hypertension (7) Pulmonary HTN Code(s): I27.20 - PULMONARY HYPERTENSION, UNSPECIFIED (8) Shortness of breath Code(s): R06.02 - SHORTNESS OF BREATH Assessment/Plan IMP ACUTE ON CHRONIC CHF NON-ISCHEMIC CARDIOMYOPATHY COPD EXACERBATION ASHD S/P STENT AFIB LIKELY OSAS AHI 38.1 ON SLEEP SCREEN PULMONARY HTN ELEVATED LFTS ACUTE KIDNEY INJURY NIDDM S/P HYPOGLYCEMIC EPISODE HYPONATREMIA CORRECTED PLAN LASIX IV INHALED BRONCHODILATORS DAILY WT PREDNISONE O2 AC TREND LFTS MONITOR LYTES,BLOOD SUGARS,RENAL FUNCTION,NA BIPAP AT NIGHT GI WORKUP ONGOING DR ALBARRAN
[2018-12-04] MEDS: TIOTROPIUM BROMIDE 2.5 MCG (SPIRIVA) RESPIMAT INHALER IH SCH (10:46)
[2018-12-04] MEDS: BACITRACIN 15 GM TUBE TOPICAL OINTMENT TP SCH (10:46)
[2018-12-04] MEDS ORDERED: predniSONE 10 MG TABLET (UD) PO SCH (11:50)
--- NOTE | 2018-12-04 11:51 | DS ---
Physical Examination Vital Signs: Vital Signs Temperature 98.2 F 12/04/18 06:00 Pulse Rate 82 12/04/18 10:19 Respiratory Rate 18 12/04/18 06:00 Blood Pressure 149/64 12/04/18 06:00 O2 Sat by Pulse Oximetry (%) 96 12/03/18 21:00 Constitutional: Yes: Calm Cardiovascular: Yes: Regular Rate and Rhythm, S1, S2 Respiratory: Yes: Diminished Gastrointestinal: Yes: Normal Bowel Sounds, Soft Extremities: Yes: Other (wrapped) Edema: Yes Labs: CBC, BMP 12/03/18 05:30 12/04/18 05:40 Discharge Summary Reason For Visit: ACUTE ON CHRONIC CONGESTIVE HEART FAILURE Current Active Problems Acute kidney injury (Acute) Acute on chronic diastolic CHF (congestive heart failure) (Acute) CHF exacerbation (Acute) Chest pain (Acute) Diabetes (Acute) Elevated LFTs (Acute) Hospital Course: CHIEF COMPLAINT:Shortness of breath PCP: Sugar HISTORY OF PRESENT ILLNESS: 63 year old male with CHF, CAD, c/o chest pain and SOB for the past 4 days in the setting of medication non-compliance. Chest pain is described as sharp, 8/10 , radiating to arms bilaterally, constant, and denies worsening with exertion. He states he ran out of his medications which includes digoxin, metoprolol, pradaxa, and lasix and was not taking them. In the ER patient was found to have altered mental status. He was found to be hypoglycemic and after D50 push his mentation improved to baseline. ER course was notable for: (1) IV furosemide patient admitted for chf and copd exacerbation on steroids and lasix had abdominal MRI as well showed no cbd or pancreatic duct dilatation acute on chronic CHF iv lasix bid change to oral bidd, losaratan 25mg metorporol 50mg afib: metorprolol 50mg,losartan 25mg,stop pradaxa change to eliquis 5mg bid - Instructions Diet, Activity, Other Instructions: follow up with cardiology doctor regarding defibrillator placement Referrals: Jessica Wooten MD [Primary Care Provider] - Disposition: [facility] - Home Medications Comprehensive Discharge Medication List: Ambulatory Orders Fluticasone/Salmeterol [Advair Hfa 115-21 Mcg Inhaler] 2 inh PO BID 02/07/18 Dabigatran Etexilate Mesylate [Pradaxa -] 150 mg PO BID cap 05/29/18 Digoxin [Lanoxin -] 0.25 mg PO DAILY tablet 05/29/18 Montelukast Na [Singulair -] 10 mg PO HS tablet 05/29/18 Potassium Chloride [K-Dur -] 20 meq PO DAILY tablet.er 05/29/18 Albuterol 2.5/Ipratropium 0.5 [Duoneb -] 1 amp NEB Q6H PRN amp 09/03/18 Atorvastatin Ca [Lipitor] 40 mg PO HS tablet 09/03/18 Hydrocortisone 0.5% Ointment [Hytone 0.5% Ointment -] 1 applic TP BID PRN tube 09/03/18 Insulin Sliding Scale [Novolog Vial Sliding Scale -] 1 vial SQ ACHS units 09/03 Isosorbide Mononitrate [Imdur -] 60 mg PO DAILY tab.sr.24h 09/03/18 Melatonin 10 mg PO HS tab 09/03/18 Metoprolol Succinate [Toprol XL -] 50 mg PO DAILY tab.sr.24h 09/03/18 Furosemide [Lasix -] 40 mg PO BID@0600,1400 09/24/18 Lisinopril [Prinivil] 5 mg PO DAILY 09/24/18 Nystatin Cream [Mycostatin Cream -] 1 applic TP BID 09/24/18 Acetaminophen [Tylenol .Regular Strength -] 650 mg PO Q6H PRN tablet 09/30/18 Budesonide/Formeterol Fumarate [SYMBICORT 160/4.5mcg -] 2 puff IH BID inhaler 09/30/18 Guaifenesin/D-Methorphan Hb [Diabetic Tussin Dm -] 5 ml PO Q4H PRN ml 09/30/18 Insulin (Levemir) [Levemir Vial] 15 units SQ BID@0700,2200 units 09/30/18 Tiotropium [place] [Spiriva Respimat] 2 puff IH DAILY inhaler 09/30/18 predniSONE [Deltasone -] 30 mg PO BID tablet 09/30/18 Prednisone 30 mg PO BID #100 tablet 10/01/18
--- NOTE | 2018-12-04 13:47 | PN ---
Progress Note, Physician Chief Complaint: Shortness of breath History of Present Illness: 63-year-old man, with a history of chronic atrial fibrillation on anticoagulation, diabetes, hypertension, systolic heart failure, COPD, admitted with acute on chronic systolic heart failure. - Current Medication List Current Medications: Active Medications Albuterol Sulfate (Ventolin 0.083% Nebulizer Soln -) 1 amp NEB RQID [facility] Last Admin: 12/04/18 11:47 Dose: Not Given Apixaban (Eliquis -) 5 mg PO BID [facility] Last Admin: 12/04/18 10:19 Dose: 5 mg Bacitracin (Bacitracin -) 1 applic TP DAILY [facility] Last Admin: 12/03/18 09:28 Dose: 1 applic Budesonide/Formoterol Fumarate (Symbicort 160/4.5mcg -) 2 puff IH BID [facility] Last Admin: 12/04/18 10:20 Dose: 2 puff Digoxin (Lanoxin -) 0.125 mg PO DAILY [facility] Last Admin: 12/04/18 10:19 Dose: 0.125 mg Furosemide (Lasix Injection -) 40 mg IVPUSH BID@0600,1400 [facility] Last Admin: 12/04/18 06:40 Dose: 40 mg Guaifenesin/Codeine Phosphate (Robitussin Ac -) 5 ml PO TID PRN PRN Reason: COUGH Hydroxyzine HCl (Atarax -) 25 mg PO Q6H PRN PRN Reason: FOR ITCHING Last Admin: 12/01/18 21:29 Dose: 25 mg Insulin Aspart (Novolog Vial Sliding Scale -) 1 vial SQ [facility]; Protocol Last Admin: 12/04/18 06:40 Dose: Not Given Insulin Detemir (Levemir Vial) 15 units SQ BID@0700,2200 [facility] Last Admin: 12/04/18 06:40 Dose: Not Given Isosorbide Mononitrate (Imdur -) 60 mg PO DAILY [facility] Last Admin: 12/04/18 10:19 Dose: 60 mg Losartan Potassium (Cozaar -) 25 mg PO DAILY [facility] Last Admin: 12/04/18 10:19 Dose: 25 mg Metoprolol Succinate (Toprol Xl -) 50 mg PO DAILY [facility] Last Admin: 12/04/18 10:20 Dose: 50 mg Montelukast Sodium (Singulair -) 10 mg PO HS [facility] Last Admin: 12/03/18 22:08 Dose: 10 mg Multi-Ingredient Lotion (Eucerin (Large Jar) -) 1 applic TP BID PRN PRN Reason: DRY SKIN Pantoprazole Sodium (Protonix -) 20 mg PO DAILY [facility] Last Admin: 12/04/18 10:19 Dose: 20 mg Prednisone (Deltasone -) 15 mg PO DAILY [facility] Tiotropium [place] (Spiriva Respimat) 2 puff IH DAILY [facility] Last Admin: 12/03/18 09:29 Dose: 2 puff Zinc Acetate/Diphenhydramine (Benadryl 2% Cream) 1 applic TP BID [facility] Last Admin: 12/03/18 22:10 Dose: 1 applic - Objective Vital Signs: Vital Signs Temperature 98.2 F 12/04/18 06:00 Pulse Rate 82 12/04/18 10:19 Respiratory Rate 18 12/04/18 06:00 Blood Pressure 149/64 12/04/18 06:00 O2 Sat by Pulse Oximetry (%) 96 12/03/18 21:00 Constitutional: Yes: No Distress, Calm, Obese Eyes: Yes: WNL, Conjunctiva Clear, EOM Intact HENT: Yes: WNL, Atraumatic, Normocephalic Neck: Yes: WNL, Supple, Trachea Midline Cardiovascular: Yes: Pulse Irregular, S1, S2 Respiratory: Yes: On Nasal O2, Rales, SOB Gastrointestinal: Yes: WNL, Normal Bowel Sounds, Soft ...Rectal Exam: Yes: Deferred Genitourinary: Yes: WNL Musculoskeletal: Yes: WNL Extremities: Yes: Other (Edema) Edema: LLE: 1+, RLE: 1+ Peripheral Pulses: Left Radial: 1+, Right Radial: 1+, Left Doralis Pedis: 1+, Right Dorsalis Pedis: 1+, Left Femoral: 1+, Right Femoral: 1+ Integumentary: Yes: WNL Neurological: Yes: WNL, Alert, Oriented Psychiatric: Yes: WNL Labs: CBC, BMP 12/03/18 05:30 12/04/18 05:40 INR, PTT INR 1.84 (0.83-1.09) H 11/25/18 17:25 Assessment/Plan 63-year-old man, with a history of chronic atrial fibrillation on anticoagulation, diabetes, hypertension, systolic heart failure, COPD, admitted with acute on chronic systolic heart failure. The patient is gradually improving. His breathing better. He offers no specific complaints. Still short runs of nonsustained VT's on telemetry. Ventricular rates overall controlled in atrial fibrillation. Please continue IV diuretics. Continue strict salt and fluid restrictions. Please remove all fluids including ice cubes from the bedside. Encourage ambulation. The patient is still not decided about ICD implantation.
[2018-12-04 14:36] VITALS: BP 126/74; TEMP 98.3
--- NOTE | 2019-01-02 11:47 | EKG ---
Test Reason : Blood Pressure : / mmHG Vent. Rate : 126 BPM Atrial Rate : 147 BPM P-R Int : 000 ms QRS Dur : 102 ms QT Int : 314 ms P-R-T Axes : 000 002 111 degrees QTc Int : 454 ms ATRIAL FIBRILLATION WITH RAPID VENTRICULAR RESPONSE WITH PREMATURE VENTRICULAR OR ABERRANTLY CONDUCTED COMPLEXES ABNORMAL ECG Confirmed by KAYLA PIERRE MD ([id number]) on 01/02/2019 11:46:48 AM Referred By: Confirmed By:KAYLA PIERRE MD
== END 2018-12-04 15:05 | DRG 292 ==
LOC: JER 16:00 → OBSVTOIN 19:54 → JERBED 19:54 → J4W 11-26 03:20
PROVIDERS: ADMIT Family Medicine; ATTEND Family Medicine
PROC: 0HBRXZZ Excision of Toe Nail, External Approach (ICD-10-PCS; principal; 2018-12-02)
PROC: 0HBRXZZ Excision of Toe Nail, External Approach (ICD-10-PCS; 2018-12-02)
PROC: 0HBRXZZ Excision of Toe Nail, External Approach (ICD-10-PCS; 2018-12-02)
PROC: 0HBRXZZ Excision of Toe Nail, External Approach (ICD-10-PCS; 2018-12-02)
PROC: 0HBRXZZ Excision of Toe Nail, External Approach (ICD-10-PCS; 2018-12-02)
PROC: 0HBRXZZ Excision of Toe Nail, External Approach (ICD-10-PCS; 2018-12-02)
PROC: 0HBRXZZ Excision of Toe Nail, External Approach (ICD-10-PCS; 2018-12-02)
PROC: 0HBRXZZ Excision of Toe Nail, External Approach (ICD-10-PCS; 2018-12-02)
PROC: 0HBRXZZ Excision of Toe Nail, External Approach (ICD-10-PCS; 2018-12-02)
PROC: 0HBRXZZ Excision of Toe Nail, External Approach (ICD-10-PCS; 2018-12-02)
DX: I11.0 Hypertensive heart disease with heart failure (principal); N17.9 Acute kidney failure, unspecified; I48.1 Persistent atrial fibrillation; J44.1 Chronic obstructive pulmonary disease with (acute) exacerbation; E87.1 Hypo-osmolality and hyponatremia; I50.23 Acute on chronic systolic (congestive) heart failure; I42.8 Other cardiomyopathies; I25.10 Atherosclerotic heart disease of native coronary artery without angina pectoris; E78.5 Hyperlipidemia, unspecified; I48.91 Unspecified atrial fibrillation; R94.5 Abnormal results of liver function studies; I27.20 Pulmonary hypertension, unspecified; E87.8 Other disorders of electrolyte and fluid balance, not elsewhere classified; G47.33 Obstructive sleep apnea (adult) (pediatric); E66.9 Obesity, unspecified; Z68.33 Body mass index [BMI] 33.0-33.9, adult; E87.70 Fluid overload, unspecified; R00.0 Tachycardia, unspecified; R73.9 Hyperglycemia, unspecified; T50.905A Adverse effect of unspecified drugs, medicaments and biological substances, initial encounter; F41.9 Anxiety disorder, unspecified; K76.0 Fatty (change of) liver, not elsewhere classified; K57.90 Diverticulosis of intestine, part unspecified, without perforation or abscess without bleeding; I34.0 Nonrheumatic mitral (valve) insufficiency; E11.51 Type 2 diabetes mellitus with diabetic peripheral angiopathy without gangrene; B35.1 Tinea unguium; Z91.14 Patient's other noncompliance with medication regimen; Z95.5 Presence of coronary angioplasty implant and graft; Z87.891 Personal history of nicotine dependence
CPT/HCPCS: 36415; 36600; 70450-TC; 71045-TC-FY; 74176-TC; 74181-TC; 76700-TC; 76775-TC; 76856-TC; 80048; 80053; 80076; 80162; 81003; 82375; 82436; 82550; 82570; 82803; 82962; 83036; 83050; 83690; 83735; 83880; 83930; 83935; 84133; 84300; 84443; 84484; 85025; 85027; 85610; 85730; 86704; 86706; 86708; 86803; 86850; 86900; 86901; 87340; 87804; 93005; 93010; 93306-TC; 94640; 94660; 97116-GP; 97161-GP; 99284-25; J0131

== ENCOUNTER 2019-06-26 23:31 | Inpatient (IN) | payer OTHER ==
[2019-06-27 00:47] LABS: VENOUS PC02 38.1 mmHg (41-51); VENOUS PH 7.35 (7.31-7.41)
[2019-06-27 01:07] LABS: N-TERMINAL BNP 3996.4 pg/ml (5-125)
--- NOTE | 2019-06-27 01:11 | PDOC ---
History of Present Illness - General Chief Complaint: Shortness of Breath Stated Complaint: SHORTNESS OF BREATH Time Seen by Provider: 06/26/19 23:55 History Source: Patient Exam Limitations: No Limitations - History of Present Illness Initial Comments: 06/27/19 01:09 Dion Rodriguez is a 64M with PMH COPD, asthma, CHF, and anxiety presenting with SOB and fluid retention. Has been having headaches, vomiting, diarrhea, and worsening fluid in his lungs and increased swelling in his legs for the last 2 weeks, with non-productive cough for the last week. Says he is unable to take his medications, including a diuretic, for the last few days because he vomits them back up. Reports progressively worse difficulty breathing sensation of pressure in chest, with leg and buttock irritation from swelling. Reports pain and redness in his legs developing over last week. Denies chest pain, abd pain. On home eliquis, lasix, steroids. Also complains of itchiness under arms. Past History - Past Medical History Allergies/Adverse Reactions: Allergies Allergy/AdvReac Type Severity Reaction Status Date / Time Iodinated Contrast Media AdvReac Intermediate Nausea Verified 08/29/18 14:38 Home Medications: Ambulatory Orders Montelukast Na [Singulair -] 10 mg PO HS tablet 05/29/18 Albuterol 2.5/Ipratropium 0.5 [Duoneb -] 1 amp NEB Q6H PRN amp 09/03/18 Atorvastatin Ca [Lipitor] 40 mg PO HS tablet 09/03/18 Hydrocortisone 0.5% Ointment [Hytone 0.5% Ointment -] 1 applic TP BID PRN tube 09/03/18 Insulin Sliding Scale [Novolog Vial Sliding Scale -] 1 vial SQ ACHS units 09/03 Isosorbide Mononitrate [Imdur -] 60 mg PO DAILY tab.sr.24h 09/03/18 Furosemide [Lasix -] 40 mg PO BID@0600,1400 09/24/18 Acetaminophen [Tylenol .Regular Strength -] 650 mg PO Q6H PRN tablet 09/30/18 Apixaban [Eliquis -] 5 mg PO BID #30 tablet MDD 2 12/04/18 Digoxin [Lanoxin -] 0.125 mg PO DAILY #30 tablet MDD 1 12/04/18 Losartan Potassium [Cozaar -] 25 mg PO DAILY #30 tablet MDD 1 12/04/18 hydrOXYzine HCL [Atarax -] 25 mg PO Q6H PRN tablet 12/04/18 Insulin Glargine,Hum.rec.anlog [Basaglar Kwikpen U-100] 34 unit SQ HS 06/27/19 Metoprolol Succinate [Toprol XL -] 25 mg PO DAILY 06/27/19 predniSONE [Deltasone -] 10 mg PO DAILY 06/27/19 traZODone HCL [Trazodone HCl] 100 mg PO DAILY 06/27/19 Anemia: Yes Asthma: Yes Cardiac Disorders: Yes (A.fib, CAD) COPD: Yes CHF: Yes Diabetes: Yes HTN: Yes Hypercholesterolemia: Yes Psychiatric Problems: Yes (anxiety/depression) - Surgical History Cardiac Surgery: Yes (Cardiac Stent) Orthopedic Surgery: Yes - Suicide/Smoking/Psychosocial Hx Smoking History: Former smoker Have you smoked in the past 12 months: No Number of Cigarettes Smoked Daily: 0 If you are a former smoker, when did you quit?: 2016 Information on smoking cessation initiated: No 'Breaking Loose' booklet given: 02/07/18 Hx Alcohol Use: Yes (3 beers a day,) Drug/Substance Use Hx: No Substance Use Type: Alcohol, Marijuana Hx Substance Use Treatment: No Review of Systems - Review of Systems Able to Perform ROS?: Yes Is the patient limited Yakut proficient: No Constitutional: Yes: Malaise. No: Chills, Fever, Weakness HEENTM: No: Blurred Vision, Hearing Loss, Difficulty Swallowing Respiratory: Yes: Cough, Orthopnea, Shortness of Breath, SOB with Exertion, SOB at Rest. No: Productive cough, Hemoptysis Cardiac (ROS): Yes: Edema (abdomen, legs). No: Chest Pain, Irregular Heart Rate , Lightheadedness, Palpitations, Syncope ABD/GI: Yes: Diarrhea, Nausea, Vomiting. No: Constipated : No: Burning, Dysuria, Discharge, Frequency, Flank Pain Musculoskeletal: Yes: See HPI. No: Back Pain Integumentary: Yes: Erythema, Pruritus (under arms) Neurological: Yes: Headache, Unsteady Gait. No: Numbness, Weakness Endocrine: No: Symptoms Reported Hematologic/Lymphatic: Yes: Anemia All Other Systems: Reviewed and Negative *Physical Exam - Vital Signs Last Vital Signs Temp Pulse Resp BP Pulse Ox 98.3 F 130 H 24 H 115/79 99 06/26/19 23:54 06/26/19 23:54 06/26/19 23:54 06/26/19 23:54 06/26/19 23:54 - Physical Exam General Appearance: Yes: Appropriately Dressed, Moderate Distress, Alcohol on Breath, Obese HEENT: positive: EOMI, MARU, Normal Voice, Symmetrical, Pharynx Normal, Scleral Icterus (R) (light yellow), Scleral Icterus (L) (light yellow). negative: Rhinorrhea, Excessive drooling, Thrush Neck: positive: Trachea midline, Supple. negative: Tender, Decreased range of motion, Lymphadenopathy (R), Lymphadenopathy (L) Respiratory/Chest: positive: Wheezing (bilateral, lower lobes). negative: Chest Tender, Respiratory Distress, Accessory Muscle Use Cardiovascular: positive: Regular Rhythm, Regular Rate, Edema (fluid distension to abdomen and BLE), Tachycardia (HR increases with patient discomfort such as IV placement). negative: Murmur Gastrointestinal/Abdominal: positive: Increased Bowel Sounds, Distended. negative: Tender, Guarding, Rebound, Mass, Hepatomegaly Musculoskeletal: negative: CVA Tenderness, Decreased Range of Motion Extremity: positive: Normal Capillary Refill, Other (BLE: 2+ pedal edema with thigh swelling, tender to palpation, DP pulses 1+, sensation intact to LT. Swelling present to BLE, full ROM, sensation intact to LT, moves arms and fingers spontaneously.) Integumentary: positive: Warm, Erythema (BLE), Diaphoresis, Swelling, Other ( Erythema and white plaques noted in axillae consistent with fungal infection, no blood or pus noted.). negative: Jaundice, Petechiae Neurologic: positive: Fully Oriented, Alert, Normal Mood/Affect, Normal Response. negative: Motor Strength 5/5 (BLE strength limited 2/2 pain, unable to fully assess.) ED Treatment Course - LABORATORY CBC & Chemistry Diagram: 06/27/19 02:22 06/27/19 15:25 - ADDITIONAL ORDERS Additional order review: Laboratory Results 06/27/19 06/27/19 06/17/19 00:30 00:30 00:30 VBG pH 7.35 POC VBG pCO2 38.1 L POC VBG pO2 VBG HCO3 20.6 L VBG O2 Sat (Latha) 34.6 L VBG Base Excess -4.0 L Creatine Kinase 121 Troponin I 0.02 B-Natriuretic Peptide 3996.4 H Lipase Cancelled 184 06/17/19 00:30 VBG pH POC VBG pCO2 POC VBG pO2 VBG HCO3 VBG O2 Sat (Latha) VBG Base Excess Creatine Kinase Cancelled Troponin I Cancelled B-Natriuretic Peptide Lipase 06/17/19 00:30 RBC Cancelled MCV Cancelled MCHC Cancelled RDW Cancelled MPV Cancelled Neutrophils % Cancelled Lymphocytes % Cancelled Monocytes % Cancelled Eosinophils % Cancelled Basophils % Cancelled Medical Decision Making - Medical Decision Making 06/27/19 02:58 Dion Rodriguez is a 64M with PMH COPD, asthma, CHF, and anxiety presenting with SOB and fluid retention. Patient is SOB with significant abdominal and BLE edema concerning for CHF exacerbation. Given leg pain concerned for DVT as well due to immobility and swelling with erythema. Presenting with nausea/vomiting concerning for infection vs. pancreatitis vs. gallbladder disease. Will evaluate with CBC, CMP, UA, UC, lipase, BNP. Will obtain BLE US for r/o DVT. Patient did not tolerate BLE Doppler to LLE, did not obtain. IV access technically difficult 2/2 extremity edema, 22 placed in R AC. CMP and lipase hemolyzed, reordered labs. Ordered 1000mg IV tylenol for pain. Labs show Na 116 in context of vomiting and diarrhea. WBC 12, BNP 4000. 06/27/19 03:17 ICU consulted for Na <120, accepted. 06/27/19 03:27 Spoke to IDALIA Falcon. will admit to ICU under Ammivimal Wooten. Signed out to Dr. eNgron for further admission. *DC/Admit/Observation/Transfer Diagnosis at time of Disposition: Hyponatremia CHF (congestive heart failure) Qualifiers: Heart failure type: unspecified Heart failure chronicity: acute on chronic Qualified Code(s): I50.9 - Heart failure, unspecified COPD (chronic obstructive pulmonary disease) Qualifiers: COPD type: unspecified COPD Qualified Code(s): J44.9 - Chronic obstructive pulmonary disease, unspecified - Referrals - Patient Instructions - Post Discharge Activity
[2019-06-27 01:12] LABS: ALBUMIN 2.8 g/dl (3.4-5.0); BILIRUBIN,TOTAL 2.8 mg/dL (0.2-1); BLOOD UREA NITROGEN 7.9 mg/dL (7-18); CALCIUM 8.2 mg/dL (8.5-10.1); POTASSIUM 4.6 mmol/L (3.5-5.1); TOT PROT 7.6 g/dl (6.4-8.2)
[2019-06-27] MEDS ORDERED: ONDANSETRON 4 MG/2 ML VIAL IVPUSH ONE (02:26)
[2019-06-27] MEDS ORDERED: FUROSEMIDE 40 MG/4 ML INJECTABLE VIAL IVPUSH ONE (02:26)
[2019-06-27 02:29] LABS: BASO % 0.5 % (0-2.0); EOS % 2.5 % (0-4.5); HEMATOCRIT 39.8 % (35.4-49); HEMOGLOBIN 13.2 GM/dL (11.7-16.9); LYMPH % 7.6 % (8-40); MCH 30.7 pg (25.7-33.7); MCHC 33.2 g/dl (32.0-35.9); MEAN CELL VOLUME 92.4 fl (80-96); MEAN PLT VOLUME 9.7 fl (7.5-11.1); MONO % 7.7 % (3.8-10.2); NEUT % 81.7 % (42.8-82.8); PLATELET COUNT 211 K/MM3 (134-434); RBC 4.31 M/mm3 (4.00-5.60); RDW 19.4 % (11.9-15.9); WHITE BLOOD COUNT 12.1 K/mm3 (4.0-10.0)
--- NOTE | 2019-06-27 02:34 | PDOC ---
Attending Attestation - Resident Resident Name: MigueldonitaBraxton - ED Attending Attestation I have performed the following: I have examined & evaluated the patient, The case was reviewed & discussed with the resident, I agree w/resident's findings & plan, Exceptions are as noted - HPI HPI: 06/27/19 02:28 64 yo male h/o cad, chf copd, daily etoh use here with c/o n/v x one week, inability to take his medications. pt is on chronic steroids , lasix 40 bid, antihypertensives also c/o diarreha. no f/c denies cp. has had sob worse over last 2 weeks. sob with minimal exertion and lying flat. legs are worsening swelling and redness. denies fever or chills. adeola melena. does have h/o anemia. pt pcp is dr neal. - Physicial Exam PE: 06/27/19 02:30 awake alert lungs distant breath sounds. heart irreg tachycardia no mrg abd soft nt nd ext wwp bilat pitting edema. erythem. no warmth. 2+ dp/ pt pulses bilat. abd obese. noted varicose spider veings upper ext, mild scleral icterus. - Medical Decision Making 06/27/19 02:31 64 yo male h/o cad chf copd leg edema. etoh use/ abuse? suspect liver disease. with n/v /d one week, sob and orthopnea pnd. suspect fluid overload, possible effusion. copd/ chf. not taking meds x one week. pt on eloquis for afib. plan labs cxr lasix. zofran noted to be hyponatremia, fluid overloaded. lasix 40 iv , zofran. pt refusing doppler states too uncomfortable. suspect chf, fluid overload and cause for hyponatremia. Heart Score/ECG Review #1 General ECG Interpretation: Normal Intervals, No acute ischemic changes Compared to previous ECG there are: Other (afib rate 107)
[2019-06-27] MEDS ORDERED: FUROSEMIDE 40 MG/4 ML INJECTABLE VIAL ONE (02:36)
[2019-06-27] MEDS ORDERED: ONDANSETRON 4 MG/2 ML VIAL ONE (02:36)
[2019-06-27] MEDS ORDERED: ACETAMINOPHEN 1000 MG/100 ML VIAL (NON FORMULARY) IVPB ONE (02:57)
[2019-06-27] MEDS ORDERED: ACETAMINOPHEN INJECTION 100 ML IVPB ONE (03:01)
[2019-06-27 03:12] LABS: ANISOCYTOSIS 0; MACROCYTOSIS 0; PLATELET ESTIMATE NORMAL
--- NOTE | 2019-06-27 03:15 | CONSULT ---
Consultation: CONSULT SERVICE: ICU Resident HISTORY OF PRESENT ILLNESS: 64yo M with h/o of HFrEF (severely reduced 11/2018), Afib (Digoxin and Eliquis ), COPD (chronic steroid use), ETOH use (2 cans of beer daily) who originally presented today with nausea and NB/NB vomiting for one week. Pt reports as a result he did not take his medication since he became nausea and would vomit them out. Pt reports he slowly retained water throughout the week and decided to seek help in the ER when his legs became painful. In addition, pt reports having difficulty breathing and has not taken any of his prednisone doses for 1 week. Pt currently endorses all these symptoms, but his nausea and vomiting have subsided. Pt has had a previous nuclear stress test and echocardiogram which revealed severely reduced function. Pt denies any fever/chills, constipation, abdominal pain, dysuria, hematuria, clouding of mentation, weakness, numbness/tingling, seizure-like activity. 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 No wheezes, and no crackles. No accessory muscle use. On 2LNC HEART: RRR, normal S1 and S2 with 3/6 systolic murmur at LLSB ABDOMEN: Soft, NT/ND, normoactive bowel sounds, no guarding, abdominal wall edema noted, no caput medusa EXTREMITIES: 2+ DP pulses b/l, warm, well-perfused. 2+ pitting edema noted to the groin with tense skin overlying, lateral areas of weeping clear fluid on legs. NEUROLOGICAL: electrolysis needle operator II-XII intact. Strength 5/5 with limitation of lower extremities 2/2 to pain and edema. Sensation intact. Normal speech. PSYCHIATRIC: Cooperative. Good eye contact. Appropriate mood and affect. SKIN: Warm, dry, no rashes, see above Laboratory Results 06/17/19 06/17/19 06/17/19 00:30 00:30 00:30 WBC Cancelled Corrected WBC (auto) Cancelled RBC Cancelled Hgb Cancelled Hct Cancelled MCV Cancelled MCH Cancelled MCHC Cancelled RDW Cancelled Plt Count Cancelled MPV Cancelled Absolute Neuts (auto) Cancelled Neutrophils % Cancelled Neutrophils % (Manual) Band Neutrophils % Lymphocytes % Cancelled Lymphocytes % (Manual) Monocytes % Cancelled Monocytes % (Manual) Eosinophils % Cancelled Eosinophils % (Manual) Basophils % Cancelled Basophils % (Manual) Myelocytes % (Man) Promyelocytes % (Man) Blast Cells % (Manual) Nucleated RBC % Cancelled Metamyelocytes Hypochromia Platelet Estimate Cancelled Platelet Comment Cancelled Polychromasia Poikilocytosis Anisocytosis Microcytosis Macrocytosis VBG pH POC VBG pCO2 POC VBG pO2 VBG HCO3 VBG O2 Sat (Latha) VBG Base Excess Sodium 116 L* Potassium 4.6 Chloride 80 L Carbon Dioxide 22 Anion Gap 15 BUN 7.9 Creatinine 1.0 Est GFR (CKD-EPI)AfAm 91.13 Est GFR (CKD-EPI)NonAf 78.63 Random Glucose 100 Calcium 8.2 L Total Bilirubin 2.8 H AST 125 H ALT 70 H Alkaline Phosphatase 295 H Creatine Kinase Cancelled Troponin I Cancelled B-Natriuretic Peptide Total Protein 7.6 Albumin 2.8 L Lipase Alcohol, Quantitative 06/17/19 06/27/19 06/27/19 00:30 00:30 00:30 WBC Corrected WBC (auto) RBC Hgb Hct MCV MCH MCHC RDW Plt Count MPV Absolute Neuts (auto) Neutrophils % Neutrophils % (Manual) Band Neutrophils % Lymphocytes % Lymphocytes % (Manual) Monocytes % Monocytes % (Manual) Eosinophils % Eosinophils % (Manual) Basophils % Basophils % (Manual) Myelocytes % (Man) Promyelocytes % (Man) Blast Cells % (Manual) Nucleated RBC % Metamyelocytes Hypochromia Platelet Estimate Platelet Comment Polychromasia Poikilocytosis Anisocytosis Microcytosis Macrocytosis VBG pH 7.35 POC VBG pCO2 38.1 L POC VBG pO2 VBG HCO3 20.6 L VBG O2 Sat (Latha) 34.6 L VBG Base Excess -4.0 L Sodium Potassium Chloride Carbon Dioxide Anion Gap BUN Creatinine Est GFR (CKD-EPI)AfAm Est GFR (CKD-EPI)NonAf Random Glucose Calcium Total Bilirubin AST ALT Alkaline Phosphatase Creatine Kinase 121 Troponin I 0.02 B-Natriuretic Peptide 3996.4 H Total Protein Albumin Lipase 184 Cancelled Alcohol, Quantitative 06/27/19 06/27/19 06/27/19 02:22 02:22 03:00 WBC 12.1 H Corrected WBC (auto) RBC 4.31 Hgb 13.2 Hct 39.8 MCV 92.4 MCH 30.7 MCHC 33.2 RDW 19.4 H Plt Count 211 D MPV 9.7 Absolute Neuts (auto) 9.9 H Neutrophils % 81.7 Neutrophils % (Manual) 79.6 Band Neutrophils % 0.0 Lymphocytes % 7.6 L Lymphocytes % (Manual) 10.7 D Monocytes % 7.7 Monocytes % (Manual) 7 Eosinophils % 2.5 D Eosinophils % (Manual) 1.9 D Basophils % 0.5 D Basophils % (Manual) 0.0 Myelocytes % (Man) 0 Promyelocytes % (Man) 0 Blast Cells % (Manual) 0 Nucleated RBC % 0 Metamyelocytes 0 Hypochromia 0 Platelet Estimate Normal Platelet Comment Polychromasia 0 Poikilocytosis 0 Anisocytosis 0 Microcytosis 0 Macrocytosis 0 VBG pH POC VBG pCO2 POC VBG pO2 VBG HCO3 VBG O2 Sat (Latha) VBG Base Excess Sodium Potassium Chloride Carbon Dioxide Anion Gap BUN Creatinine Est GFR (CKD-EPI)AfAm Est GFR (CKD-EPI)NonAf Random Glucose Calcium Total Bilirubin AST ALT Alkaline Phosphatase Creatine Kinase Troponin I B-Natriuretic Peptide Total Protein Albumin Lipase 133 Cancelled Alcohol, Quantitative 32.9 H ASSESSMENT/PLAN: Hypervolemic hyponatremia R/o adrenal insufficiency HFrEF Transaminitis 2/2 to alcohol abuse and congestive hepatopathy Hx of COPD permanent Atrial fibrillation JUAN CARLOS HTN HLD Neuro: Mentation at baseline currently Monitor for seizure activity Respiratory: --Continue Prednisone 10mg qdaily per pt's baseline medications --Duonebs PRN for any wheezing --CXR reviewed; pulmonary vasculature fullness noted --CPAP at night; AHI 38.1 on previous sleep screens --C/w Singulair home dose HS Cardiac: --Cardiac monitoring --Lasix 40mg IVP BID --Daily weights and strict I&O's --Considering pt has been off of beta-blockade for a week will hold during acute exacerbation --C/w digoxin 0.125mg qdaily for Afib control --c/w Eliquis BID PO --C/w home dose Cozaar 25mg qdaily --C/W Imdur 60mg qdaily --Echocardiogram ordered (previous 11/2018 with severe TR and EF roughly 30-35 %) --Holding Statin 2/2 to transaminitis Renal: --Hypervolemic hyponatremia --Order urine and serum osm for completeness --Diuresis as above --BMP q4h until normalizing Na and then can extend duration between draws --Fluid restrict 1L; strict --Cr at baseline; monitor for acute rise GI: --Transaminitis likely 2/2 to alcohol use and congestive hepatopathy --Monitor LFTS, TB, and DB --RUQ US to r/o CBD dilatation as previous MRCP in November limited and could not evaluate --Monitor for alcohol withdraw symptoms; Ativan if needed considering transaminitis --Zofran PRN for nausea (QTc 411ms) Endocrine: --Monitor for adrenal insufficiency considering noncompliance with chronic steroid --ISS/BGM while on chronic steroid therapy ID: No acute infections at this time FEN: Fluids: Avoid; fluid restrict 1L; active diuresis Electrolyte abnormalities: Hyponatremia as above Nutrition: Salt-restricted, fluid restricted PPX: DVT - Already on Eliquis GI - Pepcid given gastritis-like symptoms Dispo: ICU monitoring until improvement of Na Case discussed with ER physicians DO Loida Oviedo IM PGY-3 Visit type - Emergency Visit Emergency Visit: Yes ED Registration Date: 06/27/19 Care time: The patient presented to the Emergency Department on the above date and was hospitalized for further evaluation of their emergent condition. - New Patient This patient is new to me today: Yes Date on this admission: 06/27/19 - Critical Care Critical Care patient: Yes Total Critical Care Time (in minutes): 35 Critical Care Statement: The care of this patient involved high complexity decision making to prevent further life threatening deterioration of the patient 's condition and/or to evaluate & treat vital organ system(s) failure or risk of failure. ATTENDING PHYSICIAN STATEMENT I saw and evaluated the patient. I reviewed the resident's note and discussed the case with the resident. I agree with the resident's findings and plan as documented. SUBJECTIVE: OBJECTIVE: ASSESSMENT AND PLAN:
--- NOTE | 2019-06-27 03:37 | HP ---
Admitting History and Physical - Primary Care Physician PCP: Jessica Wooten - Admission Chief Complaint: SOB, Bilateral Lower Extremity Edema History of Present Illness: This is a 64 y/o man with a PMHx of CAD, CHF (low EF), COPD, Alcohol Abuse ( reports drinking 2-3 beers daily), Anemia. Who presents to the ED with nausea, vomiting and diarrhea x 1week, inability to take his medications. Patient is on chronic steroids, lasix 40 bid, antihypertensives. Patient also reports worsening SOB over the last 2 weeks, SOB with minimal exertion and lying flat, increased erythema and edema to bilateral lower extremities. Patient denies fever, chills, dizziness, HAJI, CP palpitations, AP, constipation, melena, hematochezia, hematuria, dysuria. History Source: Patient, Medical Record - Past Medical History Cardiovascular: Yes: AFIB, CAD, CHF, HTN Pulmonary: Yes: COPD, Sleep Apnea Infectious Disease: Yes: Other (pneumonia and the flu) Psych: Yes: Anxiety, Panic (panic D/O) Endocrine: Yes: Diabetes Mellitus - Past Surgical History Past Surgical History: Yes: Stent - Smoking History Smoking history: Former smoker Have you smoked in the past 12 months: No Aproximately how many cigarettes per day: 0 If you are a former smoker, when did you quit?: 2016 - Alcohol/Substance Use Hx Alcohol Use: Yes (3 beers a day,) History of Substance Use: reports: None - Social History Usual Living Arrangement: Yes: Alone ADL: Independent (ambulates with cane) 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 History of Recent Travel: No Home Medications - Allergies Allergies/Adverse Reactions: Allergies Allergy/AdvReac Type Severity Reaction Status Date / Time Iodinated Contrast Media AdvReac Intermediate Nausea Verified 08/29/18 14:38 - Home Medications Home Medications: Ambulatory Orders Montelukast Na [Singulair -] 10 mg PO HS tablet 05/29/18 Albuterol 2.5/Ipratropium 0.5 [Duoneb -] 1 amp NEB Q6H PRN amp 09/03/18 Atorvastatin Ca [Lipitor] 40 mg PO HS tablet 09/03/18 Hydrocortisone 0.5% Ointment [Hytone 0.5% Ointment -] 1 applic TP BID PRN tube 09/03/18 Insulin Sliding Scale [Novolog Vial Sliding Scale -] 1 vial SQ ACHS units 09/03 Isosorbide Mononitrate [Imdur -] 60 mg PO DAILY tab.sr.24h 09/03/18 Furosemide [Lasix -] 40 mg PO BID@0600,1400 09/24/18 Acetaminophen [Tylenol .Regular Strength -] 650 mg PO Q6H PRN tablet 09/30/18 Apixaban [Eliquis -] 5 mg PO BID #30 tablet MDD 2 12/04/18 Digoxin [Lanoxin -] 0.125 mg PO DAILY #30 tablet MDD 1 12/04/18 Losartan Potassium [Cozaar -] 25 mg PO DAILY #30 tablet MDD 1 12/04/18 hydrOXYzine HCL [Atarax -] 25 mg PO Q6H PRN tablet 12/04/18 Insulin Glargine,Hum.rec.anlog [Basaglar Kwikpen U-100] 34 unit SQ HS 06/27/19 Metoprolol Succinate [Toprol XL -] 25 mg PO DAILY 06/27/19 predniSONE [Deltasone -] 10 mg PO DAILY 06/27/19 traZODone HCL [Trazodone HCl] 100 mg PO DAILY 06/27/19 Family Disease History - Family Disease History Family Disease History: Respiratory: Mother (Asthma, age 35), Other: Father (Alcoholic, ), Brother (6, healthy), Sister (7, healthy), Daughter (3, healthy) Review of Systems - Review of Systems Constitutional: reports: No Symptoms Eyes: reports: No Symptoms HENT: reports: No Symptoms Neck: reports: No Symptoms Cardiovascular: reports: Shortness of Breath Respiratory: reports: Exercise Intolerance, Orthopnea, SOB, SOB on Exertion Gastrointestinal: reports: Diarrhea, Vomiting. denies: Melena, Rectal Bleeding , Vomiting Blood Genitourinary: reports: No Symptoms Breasts: reports: No Symptoms Reported Musculoskeletal: reports: No Symptoms Integumentary: reports: No Symptoms Neurological: reports: No Symptoms Endocrine: reports: No Symptoms Hematology/Lymphatic: reports: No Symptoms Psychiatric: reports: No Symptoms Physical Examination Vital Signs: Vital Signs Temperature 98.3 F 06/26/19 23:54 Pulse Rate 105 H 06/27/19 02:48 Respiratory Rate 20 06/27/19 02:48 Blood Pressure 135/104 H 06/27/19 02:48 O2 Sat by Pulse Oximetry (%) 96 06/27/19 03:07 Labs: CBC, BMP 06/27/19 02:22 06/17/19 00:30 Laboratory Results - last 24 hr 06/17/19 06/17/19 06/17/19 00:30 00:30 00:30 WBC Cancelled Corrected WBC (auto) Cancelled RBC Cancelled Hgb Cancelled Hct Cancelled MCV Cancelled MCH Cancelled MCHC Cancelled RDW Cancelled Plt Count Cancelled MPV Cancelled Absolute Neuts (auto) Cancelled Neutrophils % Cancelled Neutrophils % (Manual) Band Neutrophils % Lymphocytes % Cancelled Lymphocytes % (Manual) Monocytes % Cancelled Monocytes % (Manual) Eosinophils % Cancelled Eosinophils % (Manual) Basophils % Cancelled Basophils % (Manual) Myelocytes % (Man) Promyelocytes % (Man) Blast Cells % (Manual) Nucleated RBC % Cancelled Metamyelocytes Hypochromia Platelet Estimate Cancelled Platelet Comment Cancelled Polychromasia Poikilocytosis Anisocytosis Microcytosis Macrocytosis VBG pH POC VBG pCO2 POC VBG pO2 VBG HCO3 VBG O2 Sat (Latha) VBG Base Excess Sodium 116 L* Potassium 4.6 Chloride 80 L Carbon Dioxide 22 Anion Gap 15 BUN 7.9 Creatinine 1.0 Est GFR (CKD-EPI)AfAm 91.13 Est GFR (CKD-EPI)NonAf 78.63 Random Glucose 100 Calcium 8.2 L Total Bilirubin 2.8 H AST 125 H ALT 70 H Alkaline Phosphatase 295 H Creatine Kinase Cancelled Troponin I Cancelled B-Natriuretic Peptide Total Protein 7.6 Albumin 2.8 L Lipase Alcohol, Quantitative 06/17/19 06/27/19 06/27/19 00:30 00:30 00:30 WBC Corrected WBC (auto) RBC Hgb Hct MCV MCH MCHC RDW Plt Count MPV Absolute Neuts (auto) Neutrophils % Neutrophils % (Manual) Band Neutrophils % Lymphocytes % Lymphocytes % (Manual) Monocytes % Monocytes % (Manual) Eosinophils % Eosinophils % (Manual) Basophils % Basophils % (Manual) Myelocytes % (Man) Promyelocytes % (Man) Blast Cells % (Manual) Nucleated RBC % Metamyelocytes Hypochromia Platelet Estimate Platelet Comment Polychromasia Poikilocytosis Anisocytosis Microcytosis Macrocytosis VBG pH 7.35 POC VBG pCO2 38.1 L POC VBG pO2 VBG HCO3 20.6 L VBG O2 Sat (Latha) 34.6 L VBG Base Excess -4.0 L Sodium Potassium Chloride Carbon Dioxide Anion Gap BUN Creatinine Est GFR (CKD-EPI)AfAm Est GFR (CKD-EPI)NonAf Random Glucose Calcium Total Bilirubin AST ALT Alkaline Phosphatase Creatine Kinase 121 Troponin I 0.02 B-Natriuretic Peptide 3996.4 H Total Protein Albumin Lipase 184 Cancelled Alcohol, Quantitative 06/27/19 06/27/19 06/27/19 02:22 02:22 03:00 WBC 12.1 H Corrected WBC (auto) RBC 4.31 Hgb 13.2 Hct 39.8 MCV 92.4 MCH 30.7 MCHC 33.2 RDW 19.4 H Plt Count 211 D MPV 9.7 Absolute Neuts (auto) 9.9 H Neutrophils % 81.7 Neutrophils % (Manual) 79.6 Band Neutrophils % 0.0 Lymphocytes % 7.6 L Lymphocytes % (Manual) 10.7 D Monocytes % 7.7 Monocytes % (Manual) 7 Eosinophils % 2.5 D Eosinophils % (Manual) 1.9 D Basophils % 0.5 D Basophils % (Manual) 0.0 Myelocytes % (Man) 0 Promyelocytes % (Man) 0 Blast Cells % (Manual) 0 Nucleated RBC % 0 Metamyelocytes 0 Hypochromia 0 Platelet Estimate Normal Platelet Comment Polychromasia 0 Poikilocytosis 0 Anisocytosis 0 Microcytosis 0 Macrocytosis 0 VBG pH POC VBG pCO2 POC VBG pO2 VBG HCO3 VBG O2 Sat (Latha) VBG Base Excess Sodium Potassium Chloride Carbon Dioxide Anion Gap BUN Creatinine Est GFR (CKD-EPI)AfAm Est GFR (CKD-EPI)NonAf Random Glucose Calcium Total Bilirubin AST ALT Alkaline Phosphatase Creatine Kinase Troponin I B-Natriuretic Peptide Total Protein Albumin Lipase 133 Cancelled Alcohol, Quantitative 32.9 H Intake & Output 06/24/19 06/25/19 06/26/19 06/27/19 23:59 23:59 23:59 23:59 Weight 117.934 kg 127.459 kg Current Medications Generic Name Dose Route Start Last Admin Trade Name Freq PRN Reason Stop Dose Admin Apixaban 5 mg 06/27/19 10:00 Eliquis - PO BID GIDEON Chlorhexidine Gluconate 1 applic 06/27/19 22:00 Hibiclens For Decolonization - TP HS GIDEON Digoxin 0.125 mg 06/27/19 10:00 Lanoxin - PO DAILY GIDEON Folic Acid 1 mg 06/27/19 10:00 Folic Acid - PO DAILY GIDEON Furosemide 40 mg 06/27/19 10:00 Lasix Injection - IVPUSH BID GIDEON Isosorbide Mononitrate 60 mg 06/27/19 10:00 Imdur - PO DAILY GIDEON Losartan Potassium 25 mg 06/27/19 10:00 Cozaar - PO DAILY GIDEON Montelukast Sodium 10 mg 06/27/19 22:00 Singulair - PO HS GIDEON Mupirocin 1 applic 06/27/19 10:00 Bactroban Ointment (For Decolonization) - NS 07/02/19 09:59 BID GIDEON Ondansetron HCl 4 mg 06/27/19 03:43 Zofran Injection IVPUSH Q6H PRN NAUSEA AND/OR VOMITING Prednisone 10 mg 06/27/19 10:00 Deltasone - PO DAILY GIDEON Thiamine HCl 100 mg 06/27/19 10:00 Vitamin B1 - PO DAILY GIDEON Trazodone HCl 100 mg 06/27/19 10:00 Desyrel - PO DAILY [facility] Imaging - Results Chest X-ray: Image Reviewed Ultrasound: Image Reviewed Problem List - Problems (1) Hyponatremia Code(s): E87.1 - HYPO-OSMOLALITY AND HYPONATREMIA (2) Shortness of breath Code(s): R06.02 - SHORTNESS OF BREATH (3) COPD with acute exacerbation Code(s): J44.1 - CHRONIC OBSTRUCTIVE PULMONARY DISEASE W (ACUTE) EXACERBATION (4) Acute on chronic diastolic CHF (congestive heart failure) Code(s): I50.33 - ACUTE ON CHRONIC DIASTOLIC (CONGESTIVE) HEART FAILURE (5) Electrolyte abnormality Code(s): E87.8 - OTH DISORDERS OF ELECTROLYTE AND FLUID BALANCE, NEC (6) Elevated LFTs Code(s): R94.5 - ABNORMAL RESULTS OF LIVER FUNCTION STUDIES (7) Pulmonary HTN Code(s): I27.20 - PULMONARY HYPERTENSION, UNSPECIFIED (8) Atrial fibrillation Code(s): I48.91 - UNSPECIFIED ATRIAL FIBRILLATION Qualifiers: Atrial fibrillation type: persistent Qualified Code(s): I48.1 - Persistent atrial fibrillation (9) CAD (coronary artery disease) Code(s): I25.10 - ATHSCL HEART DISEASE OF [place] CORONARY ARTERY W/O ANG PCTRS Qualifiers: Coronary Disease-Associated Artery/Lesion type: [place] artery [place] vs. transplanted heart: [place] heart Associated angina: without angina Qualified Code(s): I25.10 - Atherosclerotic heart disease of [place] coronary artery without angina pectoris (10) Hypertension Code(s): I10 - ESSENTIAL (PRIMARY) HYPERTENSION Qualifiers: Hypertension type: essential hypertension Qualified Code(s): I10 - Essential (primary) hypertension (11) Hypercholesterolemia Code(s): E78.0 - PURE HYPERCHOLESTEROLEMIA * DO NOT USE * (12) Stasis dermatitis of both legs Code(s): I87.2 - VENOUS INSUFFICIENCY (CHRONIC) (PERIPHERAL) Assessment/Plan This is a 64 y/o man with a PMHx of COPD, Asthma, Afib (on Eliquis), CHF (EF 30- 35), CAD s/p Stent, Sleep Apnea, DM, Anxiety, Depression, Alcohol Abuse. Admitted to ICU for Acute Hyponatremia, Acute on Chronic CHF Exacerbation, Acute COPD Exacerbation, Transaminitis, Hyperbilirubinemia, Alcohol Dependence for further evaluation of their emergent condition. Plan: Admit r/o SIADH likely secondary to medication, hypovalemia Continue cardiac monitoring Serial Enzymes Appreciate Pulm Consult Appreciate Cardiology consult Appreciate Nephrology consult Appreciate GI consult Serial BMPs Q4hrs Goal Na 6-8Meq/24hr Seizure Precautions Fall Precautions Neurochecks Na Deficit-1401 Urine Na, Urine Osmo, Serum Osmo-pending Continue home meds except Statin, Trazadone Abdominal US-pending O2 CPAP hs Duonebs Alcohol Cessation Consider Addiction Medicine consult BGMs ISS when diet resumed FEN Fluid Restriction 1L Replete lytes NPO DVT ppx OOB SCDs Continue Eliquis Dispo: Requires Inpatient Care Visit type - Emergency Visit Emergency Visit: Yes ED Registration Date: 06/27/19 Care time: The patient presented to the Emergency Department on the above date and was hospitalized for further evaluation of their emergent condition. - New Patient This patient is new to me today: Yes Date on this admission: 06/27/19 - Critical Care Critical Care patient: Yes Total Critical Care Time (in minutes): 35 Critical Care Statement: The care of this patient involved high complexity decision making to prevent further life threatening deterioration of the patient 's condition and/or to evaluate & treat vital organ system(s) failure or risk of failure.
[2019-06-27] MEDS ORDERED: ONDANSETRON 4 MG/2 ML VIAL IVPUSH PRN (03:43)
[2019-06-27 07:09] LABS: ALBUMIN 2.5 g/dl (3.4-5.0); BILIRUBIN,TOTAL 2.9 mg/dL (0.2-1); CALCIUM 7.7 mg/dL (8.5-10.1); CREATININE 1.1 mg/dL (0.55-1.3); MAGNESIUM 1.2 mg/dL (1.8-2.4); POTASSIUM 4.2 mmol/L (3.5-5.1); TOT PROT 6.7 g/dl (6.4-8.2)
--- NOTE | 2019-06-27 07:35 | CON.GI ---
Consult - History of Present Illness History of Present Illness: GI CONSULT DICTATED - STOOL CULTURES - SEROLOGY FOR CHRONIC LIVER DISEASE SHOULD BE ORDERED - MRCP IF LFT;S WORSEN - RX FOR CHF/ HYPONATREMIA PER MICU TEAM - SEE FULL CONSULT DICTATED FOR DETAILS - Past Medical History Cardio/Vascular: Yes: AFIB, CAD, CHF, HTN Pulmonary: Yes: COPD, Sleep Apnea Infectious Disease: Yes: Other (pneumonia and the flu) Psych: Yes: Anxiety, Panic (panic D/O) Endocrine: Yes: Diabetes Mellitus - Past Surgical History Past Surgical History: Yes: Stent - Alcohol/Substance Use Hx Alcohol Use: Yes (3 beers a day,) History of Substance Use: reports: None - Smoking History Smoking history: Former smoker Have you smoked in the past 12 months: No Aproximately how many cigarettes per day: 0 If you are a former smoker, when did you quit?: 2016 - Social History ADL: Independent (ambulates with cane) 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 History of Recent Travel: No Home Medications - Allergies Allergies/Adverse Reactions: Allergies Allergy/AdvReac Type Severity Reaction Status Date / Time Iodinated Contrast Media AdvReac Intermediate Nausea Verified 08/29/18 14:38 - Home Medications Home Medications: Ambulatory Orders Montelukast Na [Singulair -] 10 mg PO HS tablet 05/29/18 Albuterol 2.5/Ipratropium 0.5 [Duoneb -] 1 amp NEB Q6H PRN amp 09/03/18 Atorvastatin Ca [Lipitor] 40 mg PO HS tablet 09/03/18 Hydrocortisone 0.5% Ointment [Hytone 0.5% Ointment -] 1 applic TP BID PRN tube 09/03/18 Insulin Sliding Scale [Novolog Vial Sliding Scale -] 1 vial SQ ACHS units 09/03 Isosorbide Mononitrate [Imdur -] 60 mg PO DAILY tab.sr.24h 09/03/18 Furosemide [Lasix -] 40 mg PO BID@0600,1400 09/24/18 Acetaminophen [Tylenol .Regular Strength -] 650 mg PO Q6H PRN tablet 09/30/18 Apixaban [Eliquis -] 5 mg PO BID #30 tablet MDD 2 12/04/18 Digoxin [Lanoxin -] 0.125 mg PO DAILY #30 tablet MDD 1 12/04/18 Losartan Potassium [Cozaar -] 25 mg PO DAILY #30 tablet MDD 1 12/04/18 hydrOXYzine HCL [Atarax -] 25 mg PO Q6H PRN tablet 12/04/18 Insulin Glargine,Hum.rec.anlog [Basaglar Kwikpen U-100] 34 unit SQ HS 06/27/19 Metoprolol Succinate [Toprol XL -] 25 mg PO DAILY 06/27/19 predniSONE [Deltasone -] 10 mg PO DAILY 06/27/19 traZODone HCL [Trazodone HCl] 100 mg PO DAILY 06/27/19 Family Disease History - Family Disease History Family Disease History: Respiratory: Mother (Asthma, age 35), Other: Father (Alcoholic, ), Brother (6, healthy), Sister (7, healthy), Daughter (3, healthy) Physical Exam-GI Vital Signs: Vital Signs Temperature 98 F 06/27/19 06:35 Pulse Rate 101 H 06/27/19 06:35 Respiratory Rate 16 06/27/19 06:35 Blood Pressure 120/70 06/27/19 06:35 O2 Sat by Pulse Oximetry (%) 96 06/27/19 04:37 Labs: CBC, BMP 06/27/19 02:22 06/27/19 05:40
[2019-06-27] MEDS ORDERED: MAGNESIUM OXIDE 400 MG TABLET (FP) PO ONE (07:51)
--- NOTE | 2019-06-27 08:16 | CONSULT ---
Consult - text type - Consultation Consultation Note: Renal consult for Hyponatreia Coverage for Dr. Domingo This is a 64 year old gentleman with history of CHF with low ejection fraction, COPD, Alcohol abuse, anemia, Hx of hyponatermia who presented from home with nausea, vomiting and diarrhea and noted to have serum sodium of 116 on presentation. Pt seen in the ICU. Is sleepy but arousebale and answers all questions appropriately. No seizures noted, no confusion. Reports not eating anything for about 2 weeks. Has been drinking beers daily. Has worsening LE swelling. Denies any sob, chest pain, abd pain, fever, or chills. PMhx: as above Allergies: Contrast Family Hx: NC Social Hx; ETOH abuse ROS: as per HPI, limted as pt is sleepy Home Medications Medication Instructions Recorded Montelukast Na [Singulair -] 10 mg PO HS tablet 05/29/18 Albuterol 2.5/Ipratropium 0.5 1 amp NEB Q6H PRN amp 09/03/18 [Duoneb -] Atorvastatin Ca [Lipitor] 40 mg PO HS tablet 09/03/18 Hydrocortisone 0.5% Ointment 1 applic TP BID PRN tube 09/03/18 [Hytone 0.5% Ointment -] Insulin Sliding Scale [Novolog 1 vial SQ ACHS units 09/03/18 Vial Sliding Scale -] Isosorbide Mononitrate [Imdur -] 60 mg PO DAILY tab.sr.24h 09/03/18 Furosemide [Lasix -] 40 mg PO BID@0600,1400 09/24/18 Acetaminophen [Tylenol .Regular 650 mg PO Q6H PRN tablet 09/30/18 Strength -] Apixaban [Eliquis -] 5 mg PO BID #30 tablet MDD 2 12/04/18 Digoxin [Lanoxin -] 0.125 mg PO DAILY #30 tablet MDD 1 12/04/18 Losartan Potassium [Cozaar -] 25 mg PO DAILY #30 tablet MDD 1 12/04/18 hydrOXYzine HCL [Atarax -] 25 mg PO Q6H PRN tablet 12/04/18 Insulin Glargine,Hum.rec.anlog 34 unit SQ HS 06/27/19 [Basaglar Kwikpen U-100] Metoprolol Succinate [Toprol XL -] 25 mg PO DAILY 06/27/19 predniSONE [Deltasone -] 10 mg PO DAILY 06/27/19 traZODone HCL [Trazodone HCl] 100 mg PO DAILY 06/27/19 Vital Signs Temperature 98 F 06/27/19 06:35 Pulse Rate 95 H 06/27/19 07:00 Respiratory Rate 16 06/27/19 07:33 Blood Pressure 123/72 06/27/19 07:00 O2 Sat by Pulse Oximetry (%) 95 06/27/19 07:33 Intake & Output 06/24/19 06/25/19 06/26/19 06/27/19 23:59 23:59 23:59 23:59 Weight 117.934 kg 127.459 kg Sleepy, NAD Neck supple RRR, No M/R CTA, no rales or wheeze soft, NT/ND no bladder distension ++ edema and erythemia in LE ' CBC, BMP 06/27/19 02:22 06/27/19 05:40 Current Medications Apixaban (Eliquis -) 5 mg PO BID [facility] Chlorhexidine Gluconate (Hibiclens For Decolonization -) 1 applic TP HS [facility] Digoxin (Lanoxin -) 0.125 mg PO DAILY [facility] Folic Acid (Folic Acid -) 1 mg PO DAILY [facility] Furosemide (Lasix Injection -) 40 mg IVPUSH BID [facility] Isosorbide Mononitrate (Imdur -) 60 mg PO DAILY [facility] Losartan Potassium (Cozaar -) 25 mg PO DAILY [facility] Montelukast Sodium (Singulair -) 10 mg PO HS [facility] Mupirocin (Bactroban Ointment (For Decolonization) -) 1 applic NS BID [facility] Stop: 07/02/19 09:59 Ondansetron HCl (Zofran Injection) 4 mg IVPUSH Q6H PRN PRN Reason: NAUSEA AND/OR VOMITING Prednisone (Deltasone -) 10 mg PO DAILY [facility] Thiamine HCl (Vitamin B1 -) 100 mg PO DAILY [facility] Trazodone HCl (Desyrel -) 100 mg PO DAILY [facility] 64 year old gentleman with history of CHF with low ejection fraction, COPD, Alcohol abuse, anemia, Hx of hyponatermia who presented from home with nausea, vomiting and diarrhea and noted to have serum sodium of 116 on presentation. #Hypervolemic hyponatremia in setting of poor solute intake, chronic alcoholism and CHF #HF with LE edema #COPD #ETOH abuse #LE erythema no emrgent indication for 3% saline Continue Lasix IV BID, 1L fluid restriction Monitor serum sodium every 8 hours. If sodium downtrends can consider hypertonic saline. Oral solute intake as tolerated consider ETOH withdrawl protcol ? if he has cellulitis in LE, abx as per primary team if needed Thank you Will follow Jenaro Edmondson DO
[2019-06-27] MEDS ORDERED: traZODone HCL 50 MG TABLET (FP) ONE (08:27)
[2019-06-27] MEDS ORDERED: PT OWN MED DRAWER 7, Y5N ONE (08:28)
[2019-06-27] MEDS: FOLIC ACID 1 MG TABLET (FP) PO SCH (09:21)
[2019-06-27] MEDS: THIAMINE HCL 100 MG TABLET (FP) PO SCH (09:21)
[2019-06-27] MEDS: FUROSEMIDE 40 MG/4 ML INJECTABLE VIAL IVPUSH SCH ×2 (09:22→21:02)
[2019-06-27] MEDS: predniSONE 10 MG TABLET (UD) PO SCH (09:23)
[2019-06-27] MEDS: APIXABAN 5 MG TABLET PO SCH ×2 (09:23→21:05)
[2019-06-27] MEDS: DIGOXIN 0.125 MG TABLET (FP) PO SCH (09:23)
[2019-06-27] MEDS: LOSARTAN POTASSIUM 25 MG TABLET PO SCH ×2 (09:26→13:35)
[2019-06-27] MEDS: ISOSORBIDE MONONITRATE 60 MG TAB.SR.24H (FP) PO SCH ×2 (09:27→13:35)
[2019-06-27] MEDS: MUPIROCIN 2% TOPICAL OINTMENT FOR DECOLONIZATION NS SCH ×2 (09:48→21:06)
[2019-06-27] MEDS ORDERED: traZODone HCL 100 MG TABLET (FP) PO SCH (10:00)
--- NOTE | 2019-06-27 10:13 | PN ---
Teaching Attending Note Name of Resident: Carroll Vasquez ATTENDING PHYSICIAN STATEMENT I saw and evaluated the patient. I reviewed the resident's note and discussed the case with the resident. I agree with the resident's findings and plan as documented. SUBJECTIVE: Patient seen and examined in the ICU. Sleepy but easily arousable. Denies CP or SOB. Sodium level improved from 116 to 117. Intake & Output 06/24/19 06/25/19 06/26/19 06/27/19 23:59 23:59 23:59 23:59 Weight 260 lb 281 lb Last Vital Signs Temp Pulse Resp BP Pulse Ox 98 F 95 H 18 105/83 95 06/27/19 06:35 06/27/19 09:23 06/27/19 08:00 06/27/19 08:00 06/27/19 07:33 Active Medications Apixaban (Eliquis -) 5 mg PO BID [facility] Last Admin: 06/27/19 09:23 Dose: 5 mg Chlorhexidine Gluconate (Hibiclens For Decolonization -) 1 applic TP [facility] Digoxin (Lanoxin -) 0.125 mg PO DAILY [facility] Last Admin: 06/27/19 09:23 Dose: 0.125 mg Folic Acid (Folic Acid -) 1 mg PO DAILY [facility] Last Admin: 06/27/19 09:21 Dose: 1 mg Furosemide (Lasix Injection -) 40 mg IVPUSH BID [facility] Last Admin: 06/27/19 09:22 Dose: 40 mg Isosorbide Mononitrate (Imdur -) 60 mg PO DAILY [facility] Last Admin: 06/27/19 09:27 Dose: Not Given Losartan Potassium (Cozaar -) 25 mg PO DAILY [facility] Last Admin: 06/27/19 09:26 Dose: Not Given Montelukast Sodium (Singulair -) 10 mg PO HS [facility] Mupirocin (Bactroban Ointment (For Decolonization) -) 1 applic NS BID [facility] Stop: 07/02/19 09:59 Last Admin: 06/27/19 09:48 Dose: 1 applic Ondansetron HCl (Zofran Injection) 4 mg IVPUSH Q6H PRN PRN Reason: NAUSEA AND/OR VOMITING Prednisone (Deltasone -) 10 mg PO DAILY [facility] Last Admin: 06/27/19 09:23 Dose: 10 mg Thiamine HCl (Vitamin B1 -) 100 mg PO DAILY [facility] Last Admin: 06/27/19 09:21 Dose: 100 mg Trazodone HCl (Desyrel -) 100 mg PO DAILY [facility] Last Admin: 06/27/19 09:22 Dose: 100 mg GENERAL: NAD, Sleepy but easily arousable, alert, and oriented HEENT: NC/AT, (-) scleral icterus NECK: (-) JVD LUNGS: CTA bilaterally. No wheezes, and no crackles. No accessory muscle use. On 2LNC HEART: RRR, normal S1 and S2 with 3/6 systolic murmur at LLSB ABDOMEN: Soft, NT/ND, normoactive bowel sounds, no guarding EXTREMITIES: 2+ DP pulses b/l, warm, well-perfused. 2+ pitting edema noted to the groin with tense skin overlying, lateral areas of weeping clear fluid on legs. NEUROLOGICAL: Non-focal PSYCHIATRIC: Cooperative. SKIN: Warm, dry, no rashes Laboratory Results - last 24 hr 06/17/19 06/17/19 06/17/19 00:30 00:30 00:30 WBC Cancelled Corrected WBC (auto) Cancelled RBC Cancelled Hgb Cancelled Hct Cancelled MCV Cancelled MCH Cancelled MCHC Cancelled RDW Cancelled Plt Count Cancelled MPV Cancelled Absolute Neuts (auto) Cancelled Neutrophils % Cancelled Neutrophils % (Manual) Band Neutrophils % Lymphocytes % Cancelled Lymphocytes % (Manual) Monocytes % Cancelled Monocytes % (Manual) Eosinophils % Cancelled Eosinophils % (Manual) Basophils % Cancelled Basophils % (Manual) Myelocytes % (Man) Promyelocytes % (Man) Blast Cells % (Manual) Nucleated RBC % Cancelled Metamyelocytes Hypochromia Platelet Estimate Cancelled Platelet Comment Cancelled Polychromasia Poikilocytosis Anisocytosis Microcytosis Macrocytosis VBG pH POC VBG pCO2 POC VBG pO2 VBG HCO3 VBG O2 Sat (Latha) VBG Base Excess Sodium 116 L* Potassium 4.6 Chloride 80 L Carbon Dioxide 22 Anion Gap 15 BUN 7.9 Creatinine 1.0 Est GFR (CKD-EPI)AfAm 91.13 Est GFR (CKD-EPI)NonAf 78.63 Random Glucose 100 Serum Osmolality Calcium 8.2 L Magnesium Total Bilirubin 2.8 H Direct Bilirubin AST 125 H ALT 70 H Alkaline Phosphatase 295 H Creatine Kinase Cancelled Troponin I Cancelled B-Natriuretic Peptide Total Protein 7.6 Albumin 2.8 L Lipase Digoxin Alcohol, Quantitative 06/17/19 06/27/19 06/27/19 00:30 00:30 00:30 WBC Corrected WBC (auto) RBC Hgb Hct MCV MCH MCHC RDW Plt Count MPV Absolute Neuts (auto) Neutrophils % Neutrophils % (Manual) Band Neutrophils % Lymphocytes % Lymphocytes % (Manual) Monocytes % Monocytes % (Manual) Eosinophils % Eosinophils % (Manual) Basophils % Basophils % (Manual) Myelocytes % (Man) Promyelocytes % (Man) Blast Cells % (Manual) Nucleated RBC % Metamyelocytes Hypochromia Platelet Estimate Platelet Comment Polychromasia Poikilocytosis Anisocytosis Microcytosis Macrocytosis VBG pH 7.35 POC VBG pCO2 38.1 L POC VBG pO2 VBG HCO3 20.6 L VBG O2 Sat (Latha) 34.6 L VBG Base Excess -4.0 L Sodium Potassium Chloride Carbon Dioxide Anion Gap BUN Creatinine Est GFR (CKD-EPI)AfAm Est GFR (CKD-EPI)NonAf Random Glucose Serum Osmolality Calcium Magnesium Total Bilirubin Direct Bilirubin AST ALT Alkaline Phosphatase Creatine Kinase 121 Troponin I 0.02 B-Natriuretic Peptide 3996.4 H Total Protein Albumin Lipase 184 Cancelled Digoxin Alcohol, Quantitative 06/27/19 06/27/19 06/27/19 02:22 02:22 03:00 WBC 12.1 H Corrected WBC (auto) RBC 4.31 Hgb 13.2 Hct 39.8 MCV 92.4 MCH 30.7 MCHC 33.2 RDW 19.4 H Plt Count 211 D MPV 9.7 Absolute Neuts (auto) 9.9 H Neutrophils % 81.7 Neutrophils % (Manual) 79.6 Band Neutrophils % 0.0 Lymphocytes % 7.6 L Lymphocytes % (Manual) 10.7 D Monocytes % 7.7 Monocytes % (Manual) 7 Eosinophils % 2.5 D Eosinophils % (Manual) 1.9 D Basophils % 0.5 D Basophils % (Manual) 0.0 Myelocytes % (Man) 0 Promyelocytes % (Man) 0 Blast Cells % (Manual) 0 Nucleated RBC % 0 Metamyelocytes 0 Hypochromia 0 Platelet Estimate Normal Platelet Comment Polychromasia 0 Poikilocytosis 0 Anisocytosis 0 Microcytosis 0 Macrocytosis 0 VBG pH POC VBG pCO2 POC VBG pO2 VBG HCO3 VBG O2 Sat (Latha) VBG Base Excess Sodium Potassium Chloride Carbon Dioxide Anion Gap BUN Creatinine Est GFR (CKD-EPI)AfAm Est GFR (CKD-EPI)NonAf Random Glucose Serum Osmolality Calcium Magnesium Total Bilirubin Direct Bilirubin AST ALT Alkaline Phosphatase Creatine Kinase Troponin I B-Natriuretic Peptide Total Protein Albumin Lipase 133 Cancelled Digoxin Alcohol, Quantitative 32.9 H 06/27/19 06/27/19 05:40 05:50 WBC Corrected WBC (auto) RBC Hgb Hct MCV MCH MCHC RDW Plt Count MPV Absolute Neuts (auto) Neutrophils % Neutrophils % (Manual) Band Neutrophils % Lymphocytes % Lymphocytes % (Manual) Monocytes % Monocytes % (Manual) Eosinophils % Eosinophils % (Manual) Basophils % Basophils % (Manual) Myelocytes % (Man) Promyelocytes % (Man) Blast Cells % (Manual) Nucleated RBC % Metamyelocytes Hypochromia Platelet Estimate Platelet Comment Polychromasia Poikilocytosis Anisocytosis Microcytosis Macrocytosis VBG pH POC VBG pCO2 POC VBG pO2 VBG HCO3 VBG O2 Sat (Latha) VBG Base Excess Sodium 117 L* Potassium 4.2 Chloride 81 L Carbon Dioxide 23 Anion Gap 13 BUN 8.0 Creatinine 1.1 Est GFR (CKD-EPI)AfAm 81.22 Est GFR (CKD-EPI)NonAf 70.07 Random Glucose 83 Serum Osmolality 247 L D Calcium 7.7 L Magnesium 1.2 L Total Bilirubin 2.9 H Direct Bilirubin 2.0 H AST 104 H ALT 60 Alkaline Phosphatase 263 H Creatine Kinase Troponin I 0.02 B-Natriuretic Peptide Total Protein 6.7 Albumin 2.5 L Lipase Digoxin < 0.06 L Alcohol, Quantitative ASSESSMENT/PLAN: Hypervolemic hyponatremia in the setting of poor solute intake, chronic alcoholism, and CHF HFrEF Transaminitis 2/2 to alcohol abuse and congestive hepatopathy Hx of COPD Permanent Atrial fibrillation OSAS HTN HLD Lasix BID CPAP QHS O2 as needed Strict I & O Prednisone Monitor for withdrawal Singulair Daily weights Eliquis US evaluation of Abdomen Requires ICU monitoring for severe Hyponatremia Dr Jaramillo Critical care time spent in reviewing chart, evaluating patient and formulating plan - 36 minutes.
--- NOTE | 2019-06-27 10:58 | PN ---
Physical Exam: SUBJECTIVE: Patient seen and examined at the bedside. States that he feels better than yesterday. Denies any further diarrhea, nausea, vomiting. States that his breathing feels better but does get occasionally short of breath. Complains of swelling in the legs. Denies cp, abd pain, fever, chills, headaches , numbness, tingling, weakness, dizziness, lightheadedness, bleeding, urinary complaints. OBJECTIVE: Vital Signs Period Temp Pulse Resp BP Sys/Uribe Pulse Ox Last 24 Hr 97.8 F-98.3 F 95-130 16-24 105-135/70-104 95-99 GENERAL: The patient is awake, alert, and fully oriented, in no acute distress. Occasionally falls asleep and snoring. HEAD: Normal with no signs of trauma. EYES: PERRL, extraocular movements intact, sclera anicteric, conjunctiva clear. No ptosis. NECK: Trachea midline, full range of motion, supple. LUNGS: Breath sounds equal, some crackles heard bilaterally at the bases, no wheezing, no accessory muscle use. HEART: Regular rate and rhythm, S1, S2 without murmur, rub. ABDOMEN: Soft, nontender, obese, nondistended, normoactive bowel sounds, no guarding, no rebound. EXTREMITIES: 1+ pulses, warm, 2+ edema extending just past the ankles. NEUROLOGICAL: Cranial nerves II through XII grossly intact. Muscle strength intact bilaterally, upper and lower extremities. PSYCH: Normal mood, normal affect. SKIN: Warm, dry. Laboratory Results - last 24 hr 06/17/19 06/17/19 06/17/19 00:30 00:30 00:30 WBC Cancelled Corrected WBC (auto) Cancelled RBC Cancelled Hgb Cancelled Hct Cancelled MCV Cancelled MCH Cancelled MCHC Cancelled RDW Cancelled Plt Count Cancelled MPV Cancelled Absolute Neuts (auto) Cancelled Neutrophils % Cancelled Neutrophils % (Manual) Band Neutrophils % Lymphocytes % Cancelled Lymphocytes % (Manual) Monocytes % Cancelled Monocytes % (Manual) Eosinophils % Cancelled Eosinophils % (Manual) Basophils % Cancelled Basophils % (Manual) Myelocytes % (Man) Promyelocytes % (Man) Blast Cells % (Manual) Nucleated RBC % Cancelled Metamyelocytes Hypochromia Platelet Estimate Cancelled Platelet Comment Cancelled Polychromasia Poikilocytosis Anisocytosis Microcytosis Macrocytosis VBG pH POC VBG pCO2 POC VBG pO2 VBG HCO3 VBG O2 Sat (Latha) VBG Base Excess Sodium 116 L* Potassium 4.6 Chloride 80 L Carbon Dioxide 22 Anion Gap 15 BUN 7.9 Creatinine 1.0 Est GFR (CKD-EPI)AfAm 91.13 Est GFR (CKD-EPI)NonAf 78.63 Random Glucose 100 Serum Osmolality Calcium 8.2 L Magnesium Total Bilirubin 2.8 H Direct Bilirubin AST 125 H ALT 70 H Alkaline Phosphatase 295 H Creatine Kinase Cancelled Troponin I Cancelled B-Natriuretic Peptide Total Protein 7.6 Albumin 2.8 L Lipase Ur Random Sodium Digoxin Alcohol, Quantitative 06/17/19 06/27/19 06/27/19 00:30 00:30 00:30 WBC Corrected WBC (auto) RBC Hgb Hct MCV MCH MCHC RDW Plt Count MPV Absolute Neuts (auto) Neutrophils % Neutrophils % (Manual) Band Neutrophils % Lymphocytes % Lymphocytes % (Manual) Monocytes % Monocytes % (Manual) Eosinophils % Eosinophils % (Manual) Basophils % Basophils % (Manual) Myelocytes % (Man) Promyelocytes % (Man) Blast Cells % (Manual) Nucleated RBC % Metamyelocytes Hypochromia Platelet Estimate Platelet Comment Polychromasia Poikilocytosis Anisocytosis Microcytosis Macrocytosis VBG pH 7.35 POC VBG pCO2 38.1 L POC VBG pO2 VBG HCO3 20.6 L VBG O2 Sat (Latha) 34.6 L VBG Base Excess -4.0 L Sodium Potassium Chloride Carbon Dioxide Anion Gap BUN Creatinine Est GFR (CKD-EPI)AfAm Est GFR (CKD-EPI)NonAf Random Glucose Serum Osmolality Calcium Magnesium Total Bilirubin Direct Bilirubin AST ALT Alkaline Phosphatase Creatine Kinase 121 Troponin I 0.02 B-Natriuretic Peptide 3996.4 H Total Protein Albumin Lipase 184 Cancelled Ur Random Sodium Digoxin Alcohol, Quantitative 06/27/19 06/27/19 06/27/19 02:22 02:22 03:00 WBC 12.1 H Corrected WBC (auto) RBC 4.31 Hgb 13.2 Hct 39.8 MCV 92.4 MCH 30.7 MCHC 33.2 RDW 19.4 H Plt Count 211 D MPV 9.7 Absolute Neuts (auto) 9.9 H Neutrophils % 81.7 Neutrophils % (Manual) 79.6 Band Neutrophils % 0.0 Lymphocytes % 7.6 L Lymphocytes % (Manual) 10.7 D Monocytes % 7.7 Monocytes % (Manual) 7 Eosinophils % 2.5 D Eosinophils % (Manual) 1.9 D Basophils % 0.5 D Basophils % (Manual) 0.0 Myelocytes % (Man) 0 Promyelocytes % (Man) 0 Blast Cells % (Manual) 0 Nucleated RBC % 0 Metamyelocytes 0 Hypochromia 0 Platelet Estimate Normal Platelet Comment Polychromasia 0 Poikilocytosis 0 Anisocytosis 0 Microcytosis 0 Macrocytosis 0 VBG pH POC VBG pCO2 POC VBG pO2 VBG HCO3 VBG O2 Sat (Latha) VBG Base Excess Sodium Potassium Chloride Carbon Dioxide Anion Gap BUN Creatinine Est GFR (CKD-EPI)AfAm Est GFR (CKD-EPI)NonAf Random Glucose Serum Osmolality Calcium Magnesium Total Bilirubin Direct Bilirubin AST ALT Alkaline Phosphatase Creatine Kinase Troponin I B-Natriuretic Peptide Total Protein Albumin Lipase 133 Cancelled Ur Random Sodium Digoxin Alcohol, Quantitative 32.9 H 06/27/19 06/27/19 06/27/19 05:40 05:50 10:00 WBC Corrected WBC (auto) RBC Hgb Hct MCV MCH MCHC RDW Plt Count MPV Absolute Neuts (auto) Neutrophils % Neutrophils % (Manual) Band Neutrophils % Lymphocytes % Lymphocytes % (Manual) Monocytes % Monocytes % (Manual) Eosinophils % Eosinophils % (Manual) Basophils % Basophils % (Manual) Myelocytes % (Man) Promyelocytes % (Man) Blast Cells % (Manual) Nucleated RBC % Metamyelocytes Hypochromia Platelet Estimate Platelet Comment Polychromasia Poikilocytosis Anisocytosis Microcytosis Macrocytosis VBG pH POC VBG pCO2 POC VBG pO2 VBG HCO3 VBG O2 Sat (Latha) VBG Base Excess Sodium 117 L* Potassium 4.2 Chloride 81 L Carbon Dioxide 23 Anion Gap 13 BUN 8.0 Creatinine 1.1 Est GFR (CKD-EPI)AfAm 81.22 Est GFR (CKD-EPI)NonAf 70.07 Random Glucose 83 Serum Osmolality 247 L D Calcium 7.7 L Magnesium 1.2 L Total Bilirubin 2.9 H Direct Bilirubin 2.0 H AST 104 H ALT 60 Alkaline Phosphatase 263 H Creatine Kinase Troponin I 0.02 B-Natriuretic Peptide Total Protein 6.7 Albumin 2.5 L Lipase Ur Random Sodium 13 L Digoxin < 0.06 L Alcohol, Quantitative Active Medications Generic Name Dose Route Start Last Admin Trade Name Freq PRN Reason Stop Dose Admin Apixaban 5 mg 06/27/19 10:00 06/27/19 09:23 Eliquis - PO 5 mg BID [facility] Administration Chlorhexidine Gluconate 1 applic 06/27/19 22:00 Hibiclens For Decolonization - TP HS [facility] Digoxin 0.125 mg 06/27/19 10:00 06/27/19 09:23 Lanoxin - PO 0.125 mg DAILY [facility] Administration Folic Acid 1 mg 06/27/19 10:00 06/27/19 09:21 Folic Acid - PO 1 mg DAILY [facility] Administration Furosemide 40 mg 06/27/19 10:00 06/27/19 09:22 Lasix Injection - IVPUSH 40 mg BID [facility] Administration Isosorbide Mononitrate 60 mg 06/27/19 10:00 06/27/19 09:27 Imdur - PO Not Given DAILY [facility] Losartan Potassium 25 mg 06/27/19 10:00 06/27/19 09:26 Cozaar - PO Not Given DAILY [facility] Montelukast Sodium 10 mg 06/27/19 22:00 Singulair - PO HS [facility] Mupirocin 1 applic 06/27/19 10:00 06/27/19 09:48 Bactroban Ointment (For Decolonization) - NS 07/02/19 09:59 1 applic BID [facility] Administration Ondansetron HCl 4 mg 06/27/19 03:43 Zofran Injection IVPUSH Q6H PRN NAUSEA AND/OR VOMITING Prednisone 10 mg 06/27/19 10:00 06/27/19 09:23 Deltasone - PO 10 mg DAILY [facility] Administration Thiamine HCl 100 mg 06/27/19 10:00 06/27/19 09:21 Vitamin B1 - PO 100 mg DAILY [facility] Administration Trazodone HCl 100 mg 06/27/19 10:00 06/27/19 09:22 Desyrel - PO 100 mg DAILY [facility] Administration ASSESSMENT/PLAN: Dion Bowens is a 64 year old male with a PMHx of HFrEF (severely reduced 2018), Afib (Digoxin and Eliquis), COPD (chronic steroid use), ETOH use (2 cans of beer daily), anemia, afib, JUAN CARLOS, DM who presented to the ICU for hyponatremia in the setting of CHF decompensation. Hyponatremia CHF decompensation COPD afib ETOH abuse DM NEUROLOGIC - awake and alert - intermittently falling asleep likely from poor sleep secondary to JUAN CARLOS CARDIOLOGY - continue home losartan, digoxin, and isosorbide - continue home Eliquis - Lasix 40mg IV bid for CHF decompensation - I+Os and daily weights - continue cardiac monitoring - fluid restriction - cardiology consulted, Dr. Mix, recs appreciated - will need ICD - repeat echo ordered RESPIRATORY - on RA, satting well, continue to monitor - continue home Singulair - CXR showing possible atelectasis at lung - Sleep study records not available, obtain when medical records office opens, unable to obtain through [facility] - start CPAP with pressure support 12 - continue prednisone 10mg daily to avoid adrenal crisis RENAL - hyponatremia 116 noted on admission - hypoosmolar, true hyponatremia, hypervolemic, urine Na 13, urine osmo 104 likely hypervolemic hyponatremia secondary to CHF decompensation, likely additional element of beer potomania - Fluid restriction to 1L daily - Lasix 40mg IV bid - BMP checks q8h - monitor for mental status changes and seizure precautions - no acute indication for hypertonic saline - Na improving 116-->117-->123, continue to monitor GASTROINTESTINAL - on folic acid and thiamine - AST/ALT and biliruib elevated, likely in the setting of alcohol use - elevated alcohol level - RUQ U/S showing fatty liver, thickened gallbladder w/o pericholecystic fluid or gallstones, no CBD dilation - counseled on cessation of alcohol use - zofran for nausea ENDOCRINE - BGM ACHS - ISS F/E/N - no standing fluids, fluid restriction to 1L daily - hyponatremia treatment, continue to monitor electrolytes - sodium/diabetic diet with fluid restriction LINES - RAC 22 gauge inserted 06/27 PROPHYLAXIS - on Eliquis CODE - full code DISPO - continue to monitor in ICU CASE DISCUSSED WITH DR. ALBARRAN AND PRIMARY TEAM RO MARIE DO - PGY-1 INTERNAL MEDICINE Visit type - Emergency Visit Emergency Visit: No - New Patient This patient is new to me today: Yes Date on this admission: 06/27/19 - Critical Care Critical Care patient: Yes Total Critical Care Time (in minutes): 35 Critical Care Statement: The care of this patient involved high complexity decision making to prevent further life threatening deterioration of the patient 's condition and/or to evaluate & treat vital organ system(s) failure or risk of failure.
--- NOTE | 2019-06-27 11:27 | CON.CARD ---
Consult Consult Specialty:: Cardiology Referred by:: Sugar Reason for Consultation:: CHF, afib - History of Present Illness Chief Complaint: nausea vomiting History of Present Illness: 63 year old male with a PMHx of HTN, DM, HLD, mild non-obstructive CAD from cardiac cath on 07/25/2016 at [facility], systolic CHF secondary to non-ischemic cardiomyopathy with known low EF 30-35% 08/2018, chronic afib (on Eliquis) COPD , admitted with one week of nausea and diarrhea, vomiting off of medications. No chest pain, but soboe and orthopnea, no edema. - History Source History Provided By: Patient, Medical Record - Past Medical History Cardio/Vascular: Yes: AFIB, CAD, CHF, HTN Pulmonary: Yes: COPD, Sleep Apnea Infectious Disease: Yes: Other (pneumonia and the flu) Psych: Yes: Anxiety, Panic (panic D/O) Endocrine: Yes: Diabetes Mellitus - Past Surgical History Past Surgical History: Yes: Stent - Alcohol/Substance Use Hx Alcohol Use: Yes (3 beers a day,) History of Substance Use: reports: None - Smoking History Smoking history: Former smoker Have you smoked in the past 12 months: No Aproximately how many cigarettes per day: 0 If you are a former smoker, when did you quit?: 2016 - Social History ADL: Independent (ambulates with cane) 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 History of Recent Travel: No Home Medications - Allergies Allergies/Adverse Reactions: Allergies Allergy/AdvReac Type Severity Reaction Status Date / Time Iodinated Contrast Media AdvReac Intermediate Nausea Verified 08/29/18 14:38 - Home Medications Home Medications: Ambulatory Orders Montelukast Na [Singulair -] 10 mg PO HS tablet 05/29/18 Albuterol 2.5/Ipratropium 0.5 [Duoneb -] 1 amp NEB Q6H PRN amp 09/03/18 Atorvastatin Ca [Lipitor] 40 mg PO HS tablet 09/03/18 Hydrocortisone 0.5% Ointment [Hytone 0.5% Ointment -] 1 applic TP BID PRN tube 09/03/18 Insulin Sliding Scale [Novolog Vial Sliding Scale -] 1 vial SQ ACHS units 09/03 Isosorbide Mononitrate [Imdur -] 60 mg PO DAILY tab.sr.24h 09/03/18 Furosemide [Lasix -] 40 mg PO BID@0600,1400 09/24/18 Acetaminophen [Tylenol .Regular Strength -] 650 mg PO Q6H PRN tablet 09/30/18 Apixaban [Eliquis -] 5 mg PO BID #30 tablet MDD 2 12/04/18 Digoxin [Lanoxin -] 0.125 mg PO DAILY #30 tablet MDD 1 12/04/18 Losartan Potassium [Cozaar -] 25 mg PO DAILY #30 tablet MDD 1 12/04/18 hydrOXYzine HCL [Atarax -] 25 mg PO Q6H PRN tablet 12/04/18 Insulin Glargine,Hum.rec.anlog [Basaglar Kwikpen U-100] 34 unit SQ HS 06/27/19 Metoprolol Succinate [Toprol XL -] 25 mg PO DAILY 06/27/19 predniSONE [Deltasone -] 10 mg PO DAILY 06/27/19 traZODone HCL [Trazodone HCl] 100 mg PO DAILY 06/27/19 Family Disease History - Family Disease History Family Disease History: Respiratory: Mother (Asthma, age 35), Other: Father (Alcoholic, ), Brother (6, healthy), Sister (7, healthy), Daughter (3, healthy) Vital Signs: Vital Signs Temperature 98 F 06/27/19 06:35 Pulse Rate 95 H 06/27/19 09:23 Respiratory Rate 18 06/27/19 08:00 Blood Pressure 105/83 06/27/19 08:00 O2 Sat by Pulse Oximetry (%) 95 06/27/19 07:33 Constitutional: Yes: No Distress, Calm Eyes: Yes: Conjunctiva Clear, EOM Intact HENT: Yes: Normocephalic Neck: Yes: Trachea Midline Respiratory: Yes: CTA Bilaterally Gastrointestinal: Yes: Normal Bowel Sounds, Soft Cardiovascular: Yes: Regular Rate and Rhythm, Pulse Irregular JVD: Yes Carotid Bruit: No PMI: Non-Displaced Heart Sounds: Yes: S1, S2 Murmur: Yes: Systolic Murmur, Grade 2 Musculoskeletal: Yes: WNL Extremities: Yes: WNL Edema: No Peripheral Pulses WNL: Yes - Other Data Labs, Other Data: CBC, BMP 06/27/19 02:22 06/27/19 05:40 Troponin, BNP 06/17/19 06/17/19 06/27/19 00:30 00:30 05:50 Troponin I Cancelled 0.02 0.02 B-Natriuretic Peptide 3996.4 H Troponin, BNP 06/17/19 06/17/19 06/27/19 00:30 00:30 05:50 Troponin I Cancelled 0.02 0.02 B-Natriuretic Peptide 3996.4 H Imaging - Results Chest X-ray: Report Reviewed EKG: Report Reviewed Assessment/Plan 63 year old male with a PMHx of HTN, DM, HLD, mild non-obstructive CAD from cardiac cath on 07/25/2016 at [facility], systolic CHF secondary to non-ischemic cardiomyopathy with known low EF 30-35% 08/2018, chronic afib (on Eliquis), COPD , admitted CHF -restart medications. -no need for statin at present, follow lfts -diurese with IV lasix for now. -still needs ICD but was reluctant at last admission. -rpt echo Afib -restart meds -continue AC/rate control.
--- NOTE | 2019-06-27 14:50 | PN ---
Progress Note, Physician Chief Complaint: AWAKE ALERT WEAK AND LETHARGIC EVENTS AND NOTES REVIEWED PATIENT ADMITS TO ETOH ABUSE WITH DAILY BEERS AND POOR NUTRITIONAL INTAKE - Current Medication List Current Medications: Active Medications Apixaban (Eliquis -) 5 mg PO BID [facility] Last Admin: 06/27/19 09:23 Dose: 5 mg Chlorhexidine Gluconate (Hibiclens For Decolonization -) 1 applic TP HS [facility] Digoxin (Lanoxin -) 0.125 mg PO DAILY [facility] Last Admin: 06/27/19 09:23 Dose: 0.125 mg Folic Acid (Folic Acid -) 1 mg PO DAILY [facility] Last Admin: 06/27/19 09:21 Dose: 1 mg Furosemide (Lasix Injection -) 40 mg IVPUSH BID [facility] Last Admin: 06/27/19 09:22 Dose: 40 mg Insulin Aspart (Novolog Vial Sliding Scale -) 1 vial SQ ACHS [facility]; Protocol Isosorbide Mononitrate (Imdur -) 60 mg PO DAILY [facility] Last Admin: 06/27/19 13:35 Dose: 60 mg Losartan Potassium (Cozaar -) 25 mg PO DAILY [facility] Last Admin: 06/27/19 13:35 Dose: 25 mg Montelukast Sodium (Singulair -) 10 mg PO HS [facility] Mupirocin (Bactroban Ointment (For Decolonization) -) 1 applic NS BID [facility] Stop: 07/02/19 09:59 Last Admin: 06/27/19 09:48 Dose: 1 applic Ondansetron HCl (Zofran Injection) 4 mg IVPUSH Q6H PRN PRN Reason: NAUSEA AND/OR VOMITING Prednisone (Deltasone -) 10 mg PO DAILY [facility] Last Admin: 06/27/19 09:23 Dose: 10 mg Thiamine HCl (Vitamin B1 -) 100 mg PO DAILY [facility] Last Admin: 06/27/19 09:21 Dose: 100 mg Trazodone HCl (Desyrel -) 100 mg PO DAILY [facility] Last Admin: 06/27/19 09:22 Dose: 100 mg - Objective Vital Signs: Vital Signs Temperature 97.2 F L 06/27/19 10:00 Pulse Rate 104 H 06/27/19 12:00 Respiratory Rate 17 06/27/19 12:00 Blood Pressure 132/75 06/27/19 12:00 O2 Sat by Pulse Oximetry (%) 95 06/27/19 07:33 Constitutional: Yes: Mild Distress Cardiovascular: Yes: Pulse Irregular Respiratory: Yes: Diminished Gastrointestinal: Yes: Soft, Abdomen, Obese Genitourinary: Yes: [place] Present Musculoskeletal: Yes: Muscle Weakness Edema: Yes Edema: LLE: 2+, RLE: 2+ Integumentary: Yes: Erythema, Rash, Venous Stasis Changes Wound/Incision: Yes: Open to air, Excoriated Neurological: Yes: Pre-Existing Deficit ...Motor Strength: LLE, RLE Psychiatric: Yes: Other Labs: CBC, BMP 06/27/19 02:22 06/27/19 05:40 Problem List - Problems (1) Non compliance with medical treatment Code(s): Z91.19 - PATIENT'S NONCOMPLIANCE W OTH MEDICAL TREATMENT AND REGIMEN (2) Acute kidney injury Code(s): N17.9 - ACUTE KIDNEY FAILURE, UNSPECIFIED (3) Acute on chronic diastolic CHF (congestive heart failure) Code(s): I50.33 - ACUTE ON CHRONIC DIASTOLIC (CONGESTIVE) HEART FAILURE (4) Atrial fibrillation Code(s): I48.91 - UNSPECIFIED ATRIAL FIBRILLATION Qualifiers: Atrial fibrillation type: persistent Qualified Code(s): I48.1 - Persistent atrial fibrillation (5) CAD (coronary artery disease) Code(s): I25.10 - ATHSCL HEART DISEASE OF [place] CORONARY ARTERY W/O ANG PCTRS Qualifiers: Coronary Disease-Associated Artery/Lesion type: [place] artery [place] vs. transplanted heart: [place] heart Associated angina: without angina Qualified Code(s): I25.10 - Atherosclerotic heart disease of [place] coronary artery without angina pectoris (6) COPD with acute exacerbation Code(s): J44.1 - CHRONIC OBSTRUCTIVE PULMONARY DISEASE W (ACUTE) EXACERBATION (7) Cellulitis Code(s): L03.90 - CELLULITIS, UNSPECIFIED (8) Congestive heart failure with LV diastolic dysfunction, NYHA class 2 Code(s): I50.30 - UNSPECIFIED DIASTOLIC (CONGESTIVE) HEART FAILURE (9) Hypertension Code(s): I10 - ESSENTIAL (PRIMARY) HYPERTENSION Qualifiers: Hypertension type: essential hypertension Qualified Code(s): I10 - Essential (primary) hypertension (10) Hyponatremia Code(s): E87.1 - HYPO-OSMOLALITY AND HYPONATREMIA (11) Shortness of breath Code(s): R06.02 - SHORTNESS OF BREATH (12) Stasis dermatitis of both legs Code(s): I87.2 - VENOUS INSUFFICIENCY (CHRONIC) (PERIPHERAL) Assessment/Plan PATIENT DOES NOT SEE ME IN MY PRIVATE PRACTICE HE CALLS ME AND WE MAKE HIM APPOINTMENTS BUT HE NEVER F/U. PATIENT IN ICU WITH ACUTE ON CHRONIC CHF/COPD/LEG EDEMA HYPONATREMIA, NON-COMPLIANT, ETOH ABUSE, ARF, OBESITY. MONITOR NA+ AND NEURO CHECKS RENAL AND CARDIO/PULM WORKUP ALL IN PROGRESS REFUSING DVT DOPPLERS LIMITED RESULTS DIURESE WITH CHLOE COVARRUBIAS ON ELIQUIS WOUND CARE NUTRITION NEEDS TO BE OPTIMIZED PT AND SNF
--- NOTE | 2019-06-27 15:39 | CONS ---
DATE OF CONSULTATION: DATE OF DICTATION: 06/27/2019 GASTROENTEROLOGY CONSULTATION Patient is a 64-year-old man with past medical history of CAD, CHF, COPD, alcohol abuse (reports drinking approximately 3 beers daily), and anemia, who presented to the emergency room with complaints of shortness of breath, nausea, vomiting and loose bowel movements for a couple of weeks. He also admits to increased lower extremity edema and pain in the lower extremities, which has been getting worse over the past couple of weeks. He denies being told he had liver disease in the past. He has not taken any new medications, antibiotics or herbal supplements. States he had a colonoscopy a couple of years ago, reports to being negative. He is a poor historian. PAST MEDICAL HISTORY: As listed in the HPI with the addition of sleep apnea. PAST SURGICAL HISTORY: PCI. SOCIAL HISTORY: Smoked in the past, has not smoked in a year or two. Drinks alcohol. No intravenous drug abuse. ALLERGIES: CONTRAST. HOME MEDICATIONS: Include Singulair, DuoNeb, Lipitor, hydrocortisone ointment, NovoLog sliding scale, Imdur, Lasix, Tylenol, Eliquis, Lanoxin, losartan, Atarax, Toprol, prednisone and trazodone. FAMILY HISTORY: No GI or gynecological malignancy. REVIEW OF SYSTEMS: As per the HPI. PHYSICAL EXAMINATION: Vital Signs: Temperature 97, pulse 100, blood pressure 130/75, respiratory rate 12, saturation 95% on room air. General: In no acute distress. HEENT: Anicteric sclerae. Cardiovascular: S1/S2. Regular rate and rhythm. Lungs: Clear to auscultation anteriorly. Abdomen: Soft and nontender. Extremities: Positive edema and erythema bilaterally. LABORATORY DATA: White blood cell count 12, hemoglobin 13, hematocrit 39, MCV 92, platelet count 211. Sodium 117, potassium 4.2, BUN 8, creatinine 1.1, total bilirubin 2.9, direct bilirubin 2, AST 104, ALT 60, alkaline phosphatase 260. Alcohol on admission was 32. No microbiology. DIAGNOSTIC STUDIES: He had an abdominal ultrasound, which revealed limited exam, hepatomegaly, no gallstones, diffuse thickening of the gallbladder wall without evidence of pericholecystic free fluid. The common bile duct measures 2 mm, without any dilation. IMPRESSION: Transaminitis, AST predominant, most likely secondary to his underlying alcohol abuse and alcoholic liver disease. RECOMMENDATION: Monitor LFTs daily while hospitalized. If they were to worsen, would recommend an MRCP to further evaluate the biliary tree. Avoid hepatotoxic medications. Serologies for chronic disease should be ordered for completeness, including hepatitis A, B and C, RACHAEL, smooth muscle antibody, iron studies, alpha-1 antitrypsin and LDH. Alcohol abstinence should be counseled. He would benefit from a diagnostic upper endoscopy. Once his acute process has resolved, this can be done as an outpatient. If he develops further episodes of diarrhea, would culture the stool, and C. difficile PCR should also be ordered. For now, diet as tolerated. Will follow. DO ANTONIO FELDMAN/[id number]
[2019-06-27 16:08] LABS: BLOOD UREA NITROGEN 9.3 mg/dL (7-18); CALCIUM 7.8 mg/dL (8.5-10.1); POTASSIUM 3.9 mmol/L (3.5-5.1)
[2019-06-27] MEDS: INSULIN SLIDING SCALE (NOVOLOG) 1 VIAL SQ SCH ×2 (17:25→21:02)
[2019-06-27] MEDS ORDERED: MONTELUKAST NA 10 MG TABLET PO SCH (22:00)
[2019-06-27] MEDS ORDERED: CHLORHEXIDINE GLUCONATE 4% CLEANSER FOR DECOLONIZATION TP SCH (22:00)
[2019-06-27 22:25] LABS: CALCIUM 7.7 mg/dL (8.5-10.1); CREATININE 1.2 mg/dL (0.55-1.3)
[2019-06-28] MEDS: INSULIN SLIDING SCALE (NOVOLOG) 1 VIAL SQ SCH ×2 (06:47→12:16)
[2019-06-28 06:55] LABS: HEMATOCRIT 31.8 % (35.4-49); HEMOGLOBIN 10.7 GM/dL (11.7-16.9); MCH 31.3 pg (25.7-33.7); MCHC 33.8 g/dl (32.0-35.9); MEAN CELL VOLUME 92.7 fl (80-96); MEAN PLT VOLUME 9.3 fl (7.5-11.1); PLATELET COUNT 146 K/MM3 (134-434); RBC 3.43 M/mm3 (4.00-5.60); RDW 20.3 % (11.9-15.9); WHITE BLOOD COUNT 7.9 K/mm3 (4.0-10.0)
[2019-06-28 07:11] LABS: ALBUMIN 2.1 g/dl (3.4-5.0); BILIRUBIN,DIRECT 1.3 mg/dL (0.0-0.2); BILIRUBIN,TOTAL 1.8 mg/dL (0.2-1); BLOOD UREA NITROGEN 12.4 mg/dL (7-18); CALCIUM 7.3 mg/dL (8.5-10.1); CREATININE 1.1 mg/dL (0.55-1.3); MAGNESIUM 1.4 mg/dL (1.8-2.4); PHOSPHOROUS 2.1 mg/dL (2.5-4.9); POTASSIUM 3.8 mmol/L (3.5-5.1); TOT PROT 5.8 g/dl (6.4-8.2)
--- NOTE | 2019-06-28 08:14 | PN.GI ---
GI Progress Note Subjective: no new complaints - feels better today - denies abdominal pain / n/v /diarrhea - Objective Vital Signs: Vital Signs Temperature 97.5 F L 06/28/19 06:00 Pulse Rate 82 06/28/19 08:00 Respiratory Rate 18 06/28/19 08:00 Blood Pressure 104/70 06/28/19 08:00 O2 Sat by Pulse Oximetry (%) 95 06/27/19 20:11 Constitutional: Well Nourished, No Distress, Calm Eyes: Yes: WNL HENT: Yes: WNL Neck: Yes: WNL Cardiovascular: Yes: WNL, Regular Rate and Rhythm Respiratory: Yes: WNL, Regular, CTA Bilaterally Gastrointestinal Inspection: Yes: WNL ...Auscultate: Yes: Normoactive Bowel Sounds Extremities: Yes: Erythema Edema: Yes Labs: CBC, BMP 06/28/19 05:24 06/28/19 05:24 Problem List - Problems (1) Abnormal liver function tests Assessment/Plan: trend lft qd while hospitalized f/u liver serologies for chronic disease avoid hepatotoxic medications rx for chf as per MICU team Code(s): R94.5 - ABNORMAL RESULTS OF LIVER FUNCTION STUDIES (2) CHF (congestive heart failure) Code(s): I50.9 - HEART FAILURE, UNSPECIFIED Qualifiers: Heart failure type: unspecified Heart failure chronicity: acute on chronic Qualified Code(s): I50.9 - Heart failure, unspecified (3) COPD (chronic obstructive pulmonary disease) Code(s): J44.9 - CHRONIC OBSTRUCTIVE PULMONARY DISEASE, UNSPECIFIED Qualifiers: COPD type: unspecified COPD Qualified Code(s): J44.9 - Chronic obstructive pulmonary disease, unspecified (4) Hyponatremia Code(s): E87.1 - HYPO-OSMOLALITY AND HYPONATREMIA (5) Acute kidney injury Code(s): N17.9 - ACUTE KIDNEY FAILURE, UNSPECIFIED
--- NOTE | 2019-06-28 08:50 | PN ---
Progress Note (short form) - Note Progress Note: Coverage for Dr. Domingo Renal follow up for hyponatremia Pt seen and examined in the ICU awake and alert no overnight events making urine no confusion, lethargy, weakness, N/V tolerating oral diet Vital Signs Temperature 97.5 F L 06/28/19 06:00 Pulse Rate 82 06/28/19 08:00 Respiratory Rate 18 06/28/19 08:00 Blood Pressure 104/70 06/28/19 08:00 O2 Sat by Pulse Oximetry (%) 95 06/27/19 20:11 Intake & Output 06/25/19 06/26/19 06/27/19 06/28/19 23:59 23:59 23:59 23:59 Intake Total 450 Output Total 1550 600 Balance -1550 -150 Weight 117.934 kg 127.459 kg 127.958 kg NAD CTA, no rales or wheeze soft, NT/ND no bladder distension + edema in LE ' CBC, BMP 06/28/19 05:24 06/28/19 05:24 Current Medications Apixaban (Eliquis -) 5 mg PO BID [facility] Last Admin: 06/27/19 21:05 Dose: 5 mg Chlorhexidine Gluconate (Hibiclens For Decolonization -) 1 applic TP HS [facility] Last Admin: 06/27/19 21:06 Dose: 1 applic Digoxin (Lanoxin -) 0.125 mg PO DAILY [facility] Last Admin: 06/27/19 09:23 Dose: 0.125 mg Folic Acid (Folic Acid -) 1 mg PO DAILY [facility] Last Admin: 06/27/19 09:21 Dose: 1 mg Furosemide (Lasix Injection -) 40 mg IVPUSH BID [facility] Last Admin: 06/27/19 21:02 Dose: 40 mg Insulin Aspart (Novolog Vial Sliding Scale -) 1 vial SQ ACHS [facility]; Protocol Last Admin: 06/28/19 06:47 Dose: Not Given Isosorbide Mononitrate (Imdur -) 60 mg PO DAILY [facility] Last Admin: 06/27/19 13:35 Dose: 60 mg Losartan Potassium (Cozaar -) 25 mg PO DAILY [facility] Last Admin: 06/27/19 13:35 Dose: 25 mg Montelukast Sodium (Singulair -) 10 mg PO HS [facility] Last Admin: 08/17/19 21:05 Dose: 10 mg Mupirocin (Bactroban Ointment (For Decolonization) -) 1 applic NS BID [facility] Stop: 07/02/19 09:59 Last Admin: 06/27/19 21:06 Dose: 1 applic Ondansetron HCl (Zofran Injection) 4 mg IVPUSH Q6H PRN PRN Reason: NAUSEA AND/OR VOMITING Prednisone (Deltasone -) 10 mg PO DAILY [facility] Last Admin: 06/27/19 09:23 Dose: 10 mg Thiamine HCl (Vitamin B1 -) 100 mg PO DAILY [facility] Last Admin: 06/27/19 09:21 Dose: 100 mg Trazodone HCl (Desyrel -) 100 mg PO DAILY [facility] Last Admin: 06/27/19 09:22 Dose: 100 mg 64 year old gentleman with history of CHF with low ejection fraction, COPD, Alcohol abuse, anemia, Hx of hyponatermia who presented from home with nausea, vomiting and diarrhea and noted to have serum sodium of 116 on presentation. #Hypervolemic hyponatremia in setting of poor solute intake, chronic alcoholism and CHF #HF with LE edema #COPD #ETOH abuse #LE erythema Serum Na improving with IV Lasix BID continue fluid restriction of 1L Monitor serum sodium every 12 hours. Oral solute intake as tolerated consider ETOH withdrawal murali Edmondson DO
[2019-06-28] MEDS ORDERED: PT OWN MED DRAWER 7, Y5N ONE (09:12)
[2019-06-28] MEDS: LOSARTAN POTASSIUM 25 MG TABLET PO SCH (09:39)
[2019-06-28] MEDS: APIXABAN 5 MG TABLET PO SCH ×2 (09:39→21:55)
[2019-06-28] MEDS: FOLIC ACID 1 MG TABLET (FP) PO SCH (09:39)
[2019-06-28] MEDS: FUROSEMIDE 40 MG/4 ML INJECTABLE VIAL IVPUSH SCH ×2 (09:39→21:55)
[2019-06-28] MEDS: predniSONE 10 MG TABLET (UD) PO SCH (09:40)
[2019-06-28] MEDS: THIAMINE HCL 100 MG TABLET (FP) PO SCH (09:40)
[2019-06-28] MEDS: DIGOXIN 0.125 MG TABLET (FP) PO SCH (09:40)
[2019-06-28] MEDS: ISOSORBIDE MONONITRATE 60 MG TAB.SR.24H (FP) PO SCH (09:40)
[2019-06-28] MEDS: MUPIROCIN 2% TOPICAL OINTMENT FOR DECOLONIZATION NS SCH (09:55)
--- NOTE | 2019-06-28 09:57 | PN ---
Progress Note, Physician Chief Complaint: PATIENT SEEN IN ICU FEELS BETTER AWAKE ALERT DENIES CP/SOB - Current Medication List Current Medications: Active Medications Apixaban (Eliquis -) 5 mg PO BID [facility] Last Admin: 06/28/19 09:39 Dose: 5 mg Chlorhexidine Gluconate (Hibiclens For Decolonization -) 1 applic TP HS [facility] Last Admin: 06/27/19 21:06 Dose: 1 applic Digoxin (Lanoxin -) 0.125 mg PO DAILY [facility] Last Admin: 06/28/19 09:40 Dose: 0.125 mg Folic Acid (Folic Acid -) 1 mg PO DAILY [facility] Last Admin: 06/28/19 09:39 Dose: 1 mg Furosemide (Lasix Injection -) 40 mg IVPUSH BID [facility] Last Admin: 06/28/19 09:39 Dose: 40 mg Insulin Aspart (Novolog Vial Sliding Scale -) 1 vial SQ [facility]; Protocol Last Admin: 06/28/19 06:47 Dose: Not Given Isosorbide Mononitrate (Imdur -) 60 mg PO DAILY [facility] Last Admin: 06/28/19 09:40 Dose: 60 mg Losartan Potassium (Cozaar -) 25 mg PO DAILY [facility] Last Admin: 06/28/19 09:39 Dose: 25 mg Montelukast Sodium (Singulair -) 10 mg PO HS [facility] Last Admin: 06/27/19 21:05 Dose: 10 mg Mupirocin (Bactroban Ointment (For Decolonization) -) 1 applic NS BID [facility] Stop: 07/02/19 09:59 Last Admin: 06/28/19 09:55 Dose: 1 applic Ondansetron HCl (Zofran Injection) 4 mg IVPUSH Q6H PRN PRN Reason: NAUSEA AND/OR VOMITING Prednisone (Deltasone -) 10 mg PO DAILY [facility] Last Admin: 06/28/19 09:40 Dose: 10 mg Thiamine HCl (Vitamin B1 -) 100 mg PO DAILY [facility] Last Admin: 06/28/19 09:40 Dose: 100 mg Trazodone HCl (Desyrel -) 100 mg PO DAILY [facility] Last Admin: 06/27/19 09:22 Dose: 100 mg - Objective Vital Signs: Vital Signs Temperature 97.5 F L 06/28/19 06:00 Pulse Rate 105 H 06/28/19 09:40 Respiratory Rate 18 06/28/19 08:00 Blood Pressure 104/70 06/28/19 08:00 O2 Sat by Pulse Oximetry (%) 95 06/27/19 20:11 Constitutional: Yes: Mild Distress Cardiovascular: Yes: Pulse Irregular Respiratory: Yes: Diminished, On Nasal O2 Gastrointestinal: Yes: Soft, Abdomen, Obese Genitourinary: Yes: Incontinence Musculoskeletal: Yes: Muscle Weakness Extremities: Yes: Erythema Edema: Yes Integumentary: Yes: Erythema, Rash, Venous Stasis Changes Wound/Incision: Yes: Open to air Neurological: Yes: Pre-Existing Deficit ...Motor Strength: LLE, RLE Psychiatric: Yes: Other Labs: CBC, BMP 06/28/19 05:24 06/28/19 05:24 Problem List - Problems (1) Non compliance with medical treatment Code(s): Z91.19 - PATIENT'S NONCOMPLIANCE W OTH MEDICAL TREATMENT AND REGIMEN (2) Acute kidney injury Code(s): N17.9 - ACUTE KIDNEY FAILURE, UNSPECIFIED (3) Acute on chronic diastolic CHF (congestive heart failure) Code(s): I50.33 - ACUTE ON CHRONIC DIASTOLIC (CONGESTIVE) HEART FAILURE (4) Atrial fibrillation Code(s): I48.91 - UNSPECIFIED ATRIAL FIBRILLATION Qualifiers: Atrial fibrillation type: persistent Qualified Code(s): I48.1 - Persistent atrial fibrillation (5) CAD (coronary artery disease) Code(s): I25.10 - ATHSCL HEART DISEASE OF [place] CORONARY ARTERY W/O ANG PCTRS Qualifiers: Coronary Disease-Associated Artery/Lesion type: [place] artery [place] vs. transplanted heart: [place] heart Associated angina: without angina Qualified Code(s): I25.10 - Atherosclerotic heart disease of [place] coronary artery without angina pectoris (6) COPD with acute exacerbation Code(s): J44.1 - CHRONIC OBSTRUCTIVE PULMONARY DISEASE W (ACUTE) EXACERBATION (7) Cellulitis Code(s): L03.90 - CELLULITIS, UNSPECIFIED (8) Congestive heart failure with LV diastolic dysfunction, NYHA class 2 Code(s): I50.30 - UNSPECIFIED DIASTOLIC (CONGESTIVE) HEART FAILURE (9) Hypertension Code(s): I10 - ESSENTIAL (PRIMARY) HYPERTENSION Qualifiers: Hypertension type: essential hypertension Qualified Code(s): I10 - Essential (primary) hypertension (10) Hyponatremia Code(s): E87.1 - HYPO-OSMOLALITY AND HYPONATREMIA (11) Shortness of breath Code(s): R06.02 - SHORTNESS OF BREATH (12) Stasis dermatitis of both legs Code(s): I87.2 - VENOUS INSUFFICIENCY (CHRONIC) (PERIPHERAL) Assessment/Plan PATIENT DOES NOT SEE ME IN MY PRIVATE PRACTICE HE CALLS ME AND WE MAKE HIM APPOINTMENTS BUT HE NEVER F/U. PATIENT IN ICU WITH ACUTE ON CHRONIC CHF/COPD/LEG EDEMA HYPONATREMIA, NON-COMPLIANT, ETOH ABUSE, ARF, OBESITY. MONITOR NA+ AND NEURO CHECKS RENAL AND CARDIO/PULM WORKUP ALL IN PROGRESS REFUSING DVT DOPPLERS LIMITED RESULTS DIURESE WITH CHLOE COVARRUBIAS ON ELIQUIS WOUND CARE NUTRITION NEEDS TO BE OPTIMIZED PT AND SNF
--- NOTE | 2019-06-28 10:08 | PN ---
Physical Exam: SUBJECTIVE: Patient seen and examined at the bedside. Patient states he is feeling better. Notes that he is very hungry and has pain in his legs. Patient' s Na has been steadily improving and he will be ready to transfer to floors today. OBJECTIVE: Vital Signs Period Temp Pulse Resp BP Sys/Uribe Pulse Ox Last 24 Hr 97.2 F-97.6 F 74-105 15-19 81-132/48-90 95 GENERAL: The patient is awake, alert, and fully oriented, in no acute distress. HEAD: Normal with no signs of trauma. EYES: PERRL, extraocular movements intact, sclera anicteric, conjunctiva clear. No ptosis. NECK: Trachea midline, full range of motion, supple. LUNGS: Breath sounds equal, some crackles heard bilaterally at the bases, no wheezing, no accessory muscle use. HEART: Regular rate and rhythm, S1, S2 without murmur, rub. ABDOMEN: Soft, nontender, obese, nondistended, normoactive bowel sounds, no guarding, no rebound. EXTREMITIES: 1+ pulses, warm, 2+ edema extending just past the ankles. NEUROLOGICAL: Cranial nerves II through XII grossly intact. Muscle strength intact bilaterally, upper and lower extremities. PSYCH: Normal mood, normal affect. SKIN: Warm, dry. Laboratory Results - last 24 hr 06/27/19 06/27/19 06/27/19 10:00 11:49 15:25 WBC RBC Hgb Hct MCV MCH MCHC RDW Plt Count MPV Sodium 123 L Potassium 3.9 Chloride 86 L Carbon Dioxide 27 Anion Gap 11 BUN 9.3 Creatinine 1.0 Est GFR (CKD-EPI)AfAm 91.13 Est GFR (CKD-EPI)NonAf 78.63 POC Glucometer 92 Random Glucose 101 Calcium 7.8 L Phosphorus Magnesium Iron TIBC Iron Saturation Unsaturated IBC Ferritin Total Bilirubin Direct Bilirubin AST ALT Alkaline Phosphatase LD Total Total Protein Albumin Urine Osmolality 104 L D Ur Random Sodium 13 L 06/27/19 06/27/19 06/27/19 16:58 20:46 21:40 WBC RBC Hgb Hct MCV MCH MCHC RDW Plt Count MPV Sodium 125 L Potassium 4.0 Chloride 87 L Carbon Dioxide 28 Anion Gap 10 BUN 10.0 Creatinine 1.2 Est GFR (CKD-EPI)AfAm 73.11 Est GFR (CKD-EPI)NonAf 63.08 POC Glucometer 117 109 Random Glucose 102 Calcium 7.7 L Phosphorus Magnesium Iron TIBC Iron Saturation Unsaturated IBC Ferritin Total Bilirubin Direct Bilirubin AST ALT Alkaline Phosphatase LD Total Total Protein Albumin Urine Osmolality Ur Random Sodium 06/28/19 06/28/19 06/28/19 05:24 05:24 05:24 WBC 7.9 RBC 3.43 L Hgb 10.7 L Hct 31.8 L D MCV 92.7 MCH 31.3 MCHC 33.8 RDW 20.3 H Plt Count 146 D MPV 9.3 Sodium 126 L Potassium 3.8 Chloride 89 L Carbon Dioxide 28 Anion Gap 9 BUN 12.4 Creatinine 1.1 Est GFR (CKD-EPI)AfAm 81.22 Est GFR (CKD-EPI)NonAf 70.07 POC Glucometer Random Glucose 97 Calcium 7.3 L Phosphorus 2.1 L Magnesium 1.4 L Iron 16 L TIBC 265 Iron Saturation 6 L Unsaturated IBC 249 Ferritin 119.1 Total Bilirubin 1.8 H Direct Bilirubin 1.3 H AST 74 H ALT 53 Alkaline Phosphatase 251 H LD Total 490 H Total Protein 5.8 L Albumin 2.1 L Urine Osmolality Ur Random Sodium 06/28/19 05:31 WBC RBC Hgb Hct MCV MCH MCHC RDW Plt Count MPV Sodium Potassium Chloride Carbon Dioxide Anion Gap BUN Creatinine Est GFR (CKD-EPI)AfAm Est GFR (CKD-EPI)NonAf POC Glucometer 99 Random Glucose Calcium Phosphorus Magnesium Iron TIBC Iron Saturation Unsaturated IBC Ferritin Total Bilirubin Direct Bilirubin AST ALT Alkaline Phosphatase LD Total Total Protein Albumin Urine Osmolality Ur Random Sodium Active Medications Generic Name Dose Route Start Last Admin Trade Name Freq PRN Reason Stop Dose Admin Apixaban 5 mg 06/27/19 10:00 06/28/19 09:39 Eliquis - PO 5 mg BID [facility] Administration Chlorhexidine Gluconate 1 applic 06/27/19 22:00 06/27/19 21:06 Hibiclens For Decolonization - TP 1 applic HS [facility] Administration Digoxin 0.125 mg 06/27/19 10:00 06/28/19 09:40 Lanoxin - PO 0.125 mg DAILY [facility] Administration Folic Acid 1 mg 06/27/19 10:00 06/28/19 09:39 Folic Acid - PO 1 mg DAILY [facility] Administration Furosemide 40 mg 06/27/19 10:00 06/28/19 09:39 Lasix Injection - IVPUSH 40 mg BID [facility] Administration Insulin Aspart 1 vial 06/27/19 16:30 06/28/19 06:47 Novolog Vial Sliding Scale - SQ Not Given ACHS [facility] Protocol Isosorbide Mononitrate 60 mg 06/27/19 10:00 06/28/19 09:40 Imdur - PO 60 mg DAILY [facility] Administration Losartan Potassium 25 mg 06/27/19 10:00 06/28/19 09:39 Cozaar - PO 25 mg DAILY [facility] Administration Montelukast Sodium 10 mg 06/27/19 22:00 06/27/19 21:05 Singulair - PO 10 mg HS [facility] Administration Mupirocin 1 applic 06/27/19 10:00 06/28/19 09:55 Bactroban Ointment (For Decolonization) - NS 07/02/19 09:59 1 applic BID [facility] Administration Ondansetron HCl 4 mg 06/27/19 03:43 Zofran Injection IVPUSH Q6H PRN NAUSEA AND/OR VOMITING Prednisone 10 mg 06/27/19 10:00 06/28/19 09:40 Deltasone - PO 10 mg DAILY [facility] Administration Thiamine HCl 100 mg 06/27/19 10:00 06/28/19 09:40 Vitamin B1 - PO 100 mg DAILY [facility] Administration Trazodone HCl 100 mg 06/27/19 10:00 06/27/19 09:22 Desyrel - PO 100 mg DAILY [facility] Administration ASSESSMENT/PLAN: Dion Bowens is a 64 year old male with a PMHx of HFrEF (severely reduced 2018), Afib (Digoxin and Eliquis), COPD (chronic steroid use), ETOH use (2 cans of beer daily), anemia, afib, JUAN CARLOS, DM who presented to the ICU for hyponatremia in the setting of CHF decompensation. Hyponatremia CHF decompensation COPD afib ETOH abuse DM NEUROLOGIC - awake and alert CARDIOLOGY - continue home losartan, digoxin, and isosorbide - continue home Eliquis - Lasix 40mg IV bid for CHF decompensation - I+Os and daily weights - fluid restriction - cardiology consulted, Dr. Mix, recs appreciated - will need ICD - repeat echo ordered RESPIRATORY - on RA, satting well, continue to monitor - continue home Singulair - CXR showing possible atelectasis at LL lung - Sleep study records not available, obtain when medical records office opens, unable to obtain through [employer] services - start CPAP with pressure support 12 - continue prednisone 10mg daily to avoid adrenal crisis RENAL - hyponatremia 116 noted on admission - hypoosmolar, true hyponatremia, hypervolemic, urine Na 13, urine osmo 104 likely hypervolemic hyponatremia secondary to CHF decompensation, likely additional element of beer potomania - Fluid restriction to 1L daily - Lasix 40mg IV bid - BMP checks shift - monitor for mental status changes and seizure precautions - no acute indication for hypertonic saline - Na improving 116-->117-->123-->126, continue to monitor GASTROINTESTINAL - on folic acid and thiamine - AST/ALT and biliruib elevated, likely in the setting of alcohol use - elevated alcohol level - RUQ U/S showing fatty liver, thickened gallbladder w/o pericholecystic fluid or gallstones, no CBD dilation - counseled on cessation of alcohol use - zofran for nausea ENDOCRINE - BGM ACHS - ISS F/E/N - no standing fluids, fluid restriction to 1L daily - hyponatremia treatment, continue to monitor electrolytes - sodium/diabetic diet with fluid restriction LINES - RAC 22 gauge inserted 06/27 PROPHYLAXIS - on Eliquis CODE - full code DISPO - Patient's Na+ improving, stable for transfer to medical floors. CASE DISCUSSED WITH DR. ALBARRAN AND PRIMARY TEAM Visit type - Emergency Visit Emergency Visit: Yes ED Registration Date: 06/27/19 Care time: The patient presented to the Emergency Department on the above date and was hospitalized for further evaluation of their emergent condition. - New Patient This patient is new to me today: Yes Date on this admission: 06/28/19 - Critical Care Critical Care patient: Yes Total Critical Care Time (in minutes): 40 Critical Care Statement: The care of this patient involved high complexity decision making to prevent further life threatening deterioration of the patient 's condition and/or to evaluate & treat vital organ system(s) failure or risk of failure. ATTENDING PHYSICIAN STATEMENT I saw and evaluated the patient. I reviewed the resident's note and discussed the case with the resident. I agree with the resident's findings and plan as documented. SUBJECTIVE: OBJECTIVE: ASSESSMENT AND PLAN:
--- NOTE | 2019-06-28 10:17 | PN ---
Teaching Attending Note Name of Resident: Cristin Bishop ATTENDING PHYSICIAN STATEMENT I saw and evaluated the patient. I reviewed the resident's note and discussed the case with the resident. I agree with the resident's findings and plan as documented. SUBJECTIVE: Patient seen and examined in the ICU. Awake and alert. Denies CP or SOB. Feels hungry. No evidence of withdrawal symptoms. Sodium level improved to 126. Intake & Output 06/25/19 06/26/19 06/27/19 06/28/19 23:59 23:59 23:59 23:59 Intake Total 450 Output Total 1550 600 Balance -1550 -150 Weight 260 lb 281 lb 282 lb 1.6 oz Last Vital Signs Temp Pulse Resp BP Pulse Ox 97.5 F L 105 H 18 104/70 95 06/28/19 06:00 06/28/19 09:40 06/28/19 08:00 06/28/19 08:00 06/27/19 20:11 Active Medications Apixaban (Eliquis -) 5 mg PO BID [facility] Last Admin: 06/28/19 09:39 Dose: 5 mg Chlorhexidine Gluconate (Hibiclens For Decolonization -) 1 applic TP HS [facility] Last Admin: 06/27/19 21:06 Dose: 1 applic Digoxin (Lanoxin -) 0.125 mg PO DAILY [facility] Last Admin: 06/28/19 09:40 Dose: 0.125 mg Folic Acid (Folic Acid -) 1 mg PO DAILY [facility] Last Admin: 06/28/19 09:39 Dose: 1 mg Furosemide (Lasix Injection -) 40 mg IVPUSH BID [facility] Last Admin: 06/28/19 09:39 Dose: 40 mg Insulin Aspart (Novolog Vial Sliding Scale -) 1 vial SQ [facility]; Protocol Last Admin: 06/28/19 06:47 Dose: Not Given Isosorbide Mononitrate (Imdur -) 60 mg PO DAILY [facility] Last Admin: 06/28/19 09:40 Dose: 60 mg Losartan Potassium (Cozaar -) 25 mg PO DAILY [facility] Last Admin: 06/28/19 09:39 Dose: 25 mg Montelukast Sodium (Singulair -) 10 mg PO HS [facility] Last Admin: 06/27/19 21:05 Dose: 10 mg Mupirocin (Bactroban Ointment (For Decolonization) -) 1 applic NS BID [facility] Stop: 07/02/19 09:59 Last Admin: 06/28/19 09:55 Dose: 1 applic Ondansetron HCl (Zofran Injection) 4 mg IVPUSH Q6H PRN PRN Reason: NAUSEA AND/OR VOMITING Prednisone (Deltasone -) 10 mg PO DAILY [facility] Last Admin: 06/28/19 09:40 Dose: 10 mg Thiamine HCl (Vitamin B1 -) 100 mg PO DAILY [facility] Last Admin: 06/28/19 09:40 Dose: 100 mg Trazodone HCl (Desyrel -) 100 mg PO DAILY [facility] Last Admin: 06/27/19 09:22 Dose: 100 mg GENERAL: NAD, alert, and oriented HEENT: NC/AT, (-) scleral icterus NECK: (-) JVD LUNGS: CTA bilaterally. No wheezes, and no crackles. No accessory muscle use. On 2LNC HEART: RRR, normal S1 and S2 with 3/6 systolic murmur at LLSB ABDOMEN: Soft, NT/ND, normoactive bowel sounds, no guarding EXTREMITIES: 2+ DP pulses b/l, warm, well-perfused. 2+ pitting edema noted to the groin with tense skin overlying, lateral areas of weeping clear fluid on legs. NEUROLOGICAL: Non-focal PSYCHIATRIC: Cooperative. SKIN: Warm, dry, no rashes Laboratory Results - last 24 hr 06/27/19 06/27/19 06/27/19 10:00 11:49 15:25 WBC RBC Hgb Hct MCV MCH MCHC RDW Plt Count MPV Sodium 123 L Potassium 3.9 Chloride 86 L Carbon Dioxide 27 Anion Gap 11 BUN 9.3 Creatinine 1.0 Est GFR (CKD-EPI)AfAm 91.13 Est GFR (CKD-EPI)NonAf 78.63 POC Glucometer 92 Random Glucose 101 Calcium 7.8 L Phosphorus Magnesium Iron TIBC Iron Saturation Unsaturated IBC Ferritin Total Bilirubin Direct Bilirubin AST ALT Alkaline Phosphatase LD Total Total Protein Albumin Urine Osmolality 104 L D Ur Random Sodium 13 L 06/27/19 06/27/19 06/27/19 16:58 20:46 21:40 WBC RBC Hgb Hct MCV MCH MCHC RDW Plt Count MPV Sodium 125 L Potassium 4.0 Chloride 87 L Carbon Dioxide 28 Anion Gap 10 BUN 10.0 Creatinine 1.2 Est GFR (CKD-EPI)AfAm 73.11 Est GFR (CKD-EPI)NonAf 63.08 POC Glucometer 117 109 Random Glucose 102 Calcium 7.7 L Phosphorus Magnesium Iron TIBC Iron Saturation Unsaturated IBC Ferritin Total Bilirubin Direct Bilirubin AST ALT Alkaline Phosphatase LD Total Total Protein Albumin Urine Osmolality Ur Random Sodium 06/28/19 06/28/19 06/28/19 05:24 05:24 05:24 WBC 7.9 RBC 3.43 L Hgb 10.7 L Hct 31.8 L D MCV 92.7 MCH 31.3 MCHC 33.8 RDW 20.3 H Plt Count 146 D MPV 9.3 Sodium 126 L Potassium 3.8 Chloride 89 L Carbon Dioxide 28 Anion Gap 9 BUN 12.4 Creatinine 1.1 Est GFR (CKD-EPI)AfAm 81.22 Est GFR (CKD-EPI)NonAf 70.07 POC Glucometer Random Glucose 97 Calcium 7.3 L Phosphorus 2.1 L Magnesium 1.4 L Iron 16 L TIBC 265 Iron Saturation 6 L Unsaturated IBC 249 Ferritin 119.1 Total Bilirubin 1.8 H Direct Bilirubin 1.3 H AST 74 H ALT 53 Alkaline Phosphatase 251 H LD Total 490 H Total Protein 5.8 L Albumin 2.1 L Urine Osmolality Ur Random Sodium 06/28/19 05:31 WBC RBC Hgb Hct MCV MCH MCHC RDW Plt Count MPV Sodium Potassium Chloride Carbon Dioxide Anion Gap BUN Creatinine Est GFR (CKD-EPI)AfAm Est GFR (CKD-EPI)NonAf POC Glucometer 99 Random Glucose Calcium Phosphorus Magnesium Iron TIBC Iron Saturation Unsaturated IBC Ferritin Total Bilirubin Direct Bilirubin AST ALT Alkaline Phosphatase LD Total Total Protein Albumin Urine Osmolality Ur Random Sodium ASSESSMENT/PLAN: Hypervolemic hyponatremia in the setting of poor solute intake, chronic alcoholism, and CHF HFrEF Transaminitis 2/2 to alcohol abuse and congestive hepatopathy Hx of COPD Permanent Atrial fibrillation OSAS HTN HLD Lasix BID CPAP QHS O2 as needed Strict I & O Prednisone Monitor for withdrawal Singulair Daily weights Eliquis Follow Liver function testing Floor Dr Jaramillo
[2019-06-28] MEDS ORDERED: FERROUS SO4 325 MG TABLET (FP) PO ONE (10:32)
[2019-06-28] MEDS ORDERED: MAGNESIUM OXIDE 400 MG TABLET (FP) PO ONE (10:33)
[2019-06-28] MEDS ORDERED: NAPH,MB-DB/K PH,MBDB POWDER PACKET PO ONE (10:33)
--- NOTE | 2019-06-28 11:04 | PN ---
Progress Note, Physician Chief Complaint: no change tele neg History of Present Illness: 63 year old male with a PMHx of HTN, DM, HLD, mild non-obstructive CAD from cardiac cath on 07/25/2016 at [facility], systolic CHF secondary to non-ischemic cardiomyopathy with known low EF 30-35% 08/2018, chronic afib (on Eliquis) COPD , admitted with one week of nausea and diarrhea, vomiting off of medications. No chest pain, but soboe and orthopnea, no edema. - Current Medication List Current Medications: Active Medications Apixaban (Eliquis -) 5 mg PO BID [facility] Last Admin: 06/28/19 09:39 Dose: 5 mg Chlorhexidine Gluconate (Hibiclens For Decolonization -) 1 applic TP [facility] Last Admin: 06/27/19 21:06 Dose: 1 applic Digoxin (Lanoxin -) 0.125 mg PO DAILY [facility] Last Admin: 06/28/19 09:40 Dose: 0.125 mg Folic Acid (Folic Acid -) 1 mg PO DAILY [facility] Last Admin: 06/28/19 09:39 Dose: 1 mg Furosemide (Lasix Injection -) 40 mg IVPUSH BID [facility] Last Admin: 06/28/19 09:39 Dose: 40 mg Insulin Aspart (Novolog Vial Sliding Scale -) 1 vial SQ [facility]; Protocol Last Admin: 06/28/19 06:47 Dose: Not Given Isosorbide Mononitrate (Imdur -) 60 mg PO DAILY [facility] Last Admin: 06/28/19 09:40 Dose: 60 mg Losartan Potassium (Cozaar -) 25 mg PO DAILY [facility] Last Admin: 06/28/19 09:39 Dose: 25 mg Montelukast Sodium (Singulair -) 10 mg PO [facility] Last Admin: 06/27/19 21:05 Dose: 10 mg Mupirocin (Bactroban Ointment (For Decolonization) -) 1 applic NS BID [facility] Stop: 07/02/19 09:59 Last Admin: 06/28/19 09:55 Dose: 1 applic Ondansetron HCl (Zofran Injection) 4 mg IVPUSH Q6H PRN PRN Reason: NAUSEA AND/OR VOMITING Prednisone (Deltasone -) 10 mg PO DAILY [facility] Last Admin: 06/28/19 09:40 Dose: 10 mg Thiamine HCl (Vitamin B1 -) 100 mg PO DAILY [facility] Last Admin: 06/28/19 09:40 Dose: 100 mg Trazodone HCl (Desyrel -) 100 mg PO DAILY [facility] Last Admin: 06/27/19 09:22 Dose: 100 mg - Objective Vital Signs: Vital Signs Temperature 97.5 F L 06/28/19 06:00 Pulse Rate 105 H 06/28/19 09:40 Respiratory Rate 18 06/28/19 08:00 Blood Pressure 104/70 06/28/19 08:00 O2 Sat by Pulse Oximetry (%) 95 06/27/19 20:11 Constitutional: Yes: No Distress, Calm Eyes: Yes: Conjunctiva Clear, EOM Intact HENT: Yes: Atraumatic, Normocephalic Neck: Yes: Trachea Midline Cardiovascular: Yes: Pulse Irregular Gastrointestinal: Yes: Normal Bowel Sounds, Soft Musculoskeletal: Yes: WNL Extremities: Yes: WNL Edema: LLE: 1+, RLE: 1+ Labs: CBC, BMP 06/28/19 05:24 06/28/19 05:24 Assessment/Plan 63 year old male with a PMHx of HTN, DM, HLD, mild non-obstructive CAD from cardiac cath on 07/25/2016 at [facility], systolic CHF secondary to non-ischemic cardiomyopathy with known low EF 30-35% 08/2018, chronic afib (on Eliquis), COPD , admitted CHF -restart medications. -no need for statin at present, follow lfts -diurese with IV lasix for now. -still needs ICD but was reluctant at last admission. -rpt echo Afib -restart meds -continue AC/rate control.
--- NOTE | 2019-06-28 11:37 | EKG ---
Test Reason : Blood Pressure : / mmHG Vent. Rate : 107 BPM Atrial Rate : 119 BPM P-R Int : 000 ms QRS Dur : 104 ms QT Int : 366 ms P-R-T Axes : 000 -13 102 degrees QTc Int : 488 ms ATRIAL FIBRILLATION WITH RAPID VENTRICULAR RESPONSE NONSPECIFIC ST AND T WAVE ABNORMALITY ABNORMAL ECG WHEN COMPARED WITH ECG OF 28-NOV-2018 16:41, NONSPECIFIC T WAVE ABNORMALITY NO LONGER EVIDENT IN INFERIOR LEADS T WAVE INVERSION NO LONGER EVIDENT IN ANTERIOR LEADS QT HAS LENGTHENED Confirmed by ADARSH EUBANKS MD ([id number]) on 06/28/2019 11:37:14 AM Referred By: Confirmed By:ADARSH EUBANKS MD
[2019-06-28] MEDS ORDERED: ACETAMINOPHEN 325 MG TABLET (FP) PO ONE (12:22)
[2019-06-28] MEDS ORDERED: ONDANSETRON 4 MG/2 ML VIAL IVPUSH PRN (14:28)
[2019-06-28] MEDS: MONTELUKAST NA 10 MG TABLET PO SCH (21:55)
[2019-06-28] MEDS ORDERED: MUPIROCIN 2% TOPICAL OINTMENT FOR DECOLONIZATION NS SCH (22:00)
[2019-06-28] MEDS ORDERED: CHLORHEXIDINE GLUCONATE 4% CLEANSER FOR DECOLONIZATION TP SCH (22:00)
[2019-06-28] MEDS ORDERED: diphenhydrAMINE HCL 25 MG CAPSULE (FP) PO ONE (22:40)
[2019-06-28] MEDS ORDERED: MELATONIN 5 MG TABLETS PO ONE (22:40)
[2019-06-28] MEDS ORDERED: NYSTATIN 100,000 UNIT/GM TOPICAL CREAM 15 GM TUBE TP SCH (22:45)
[2019-06-29] MEDS ORDERED: GABAPENTIN 100 MG CAPSULE (FP) PO ONE ×2 (01:27→23:45)
[2019-06-29] MEDS: NYSTATIN 100000 UNIT/GM TOPICAL OINTMENT 15 GM TUBE TP SCH ×3 (03:58→22:15)
[2019-06-29 08:02] LABS: HEMATOCRIT 35.6 % (35.4-49); HEMOGLOBIN 11.8 GM/dL (11.7-16.9); MEAN CELL VOLUME 93.8 fl (80-96); MEAN PLT VOLUME 9.2 fl (7.5-11.1); PLATELET COUNT 151 K/MM3 (134-434); RBC 3.79 M/mm3 (4.00-5.60); RDW 20.8 % (11.9-15.9); WHITE BLOOD COUNT 7.4 K/mm3 (4.0-10.0)
[2019-06-29 08:23] LABS: BLOOD UREA NITROGEN 17.5 mg/dL (7-18); CALCIUM 7.4 mg/dL (8.5-10.1); CREATININE 1.2 mg/dL (0.55-1.3); POTASSIUM 3.9 mmol/L (3.5-5.1)
[2019-06-29] MEDS: ISOSORBIDE MONONITRATE 60 MG TAB.SR.24H (FP) PO SCH (09:56)
[2019-06-29] MEDS: FUROSEMIDE 40 MG/4 ML INJECTABLE VIAL IVPUSH SCH ×2 (09:56→22:15)
[2019-06-29] MEDS: LOSARTAN POTASSIUM 25 MG TABLET PO SCH (09:57)
[2019-06-29] MEDS: predniSONE 10 MG TABLET (UD) PO SCH (09:58)
[2019-06-29] MEDS: FOLIC ACID 1 MG TABLET (FP) PO SCH (09:58)
[2019-06-29] MEDS: DIGOXIN 0.125 MG TABLET (FP) PO SCH (09:59)
[2019-06-29] MEDS: APIXABAN 5 MG TABLET PO SCH ×2 (09:59→22:14)
--- NOTE | 2019-06-29 12:47 | ECHO ---
Name: COLTON HENSLEY Exam:Adult Echocardiogram Study Date: 06/29/2019 11:27 AM Age: 64 yrs Reason For Study: CHF Height: 70 in Weight: 281 lb BSA: 2.4 m2 MMode/2D Measurements & Calculations IVSd: 0.89 cm Ao root diam: 2.6 cm LVIDd: 5.1 cm LA dimension: 3.1 cm LVIDs: 4.2 cm LVPWd: 1.2 cm EDV(Teich): 123.3 ml LVOT diam: 2.0 cm ESV(Teich): 80.0 ml LAV (MOD-bp): 68.8 ml Doppler Measurements & Calculations MV E max akbar: 143.0 cm/sec Ao V2 max: 145.2 cm/sec MV dec time: 0.21 sec Ao max P.4 mmHg SUNG(V,D): 1.3 cm2 LV V1 max P.3 mmHg MR max akbar: 389.6 cm/sec LV V1 max: 56.8 cm/sec MR max P.9 mmHg TR max akbar: 289.1 cm/sec PA V2 max: 93.7 cm/sec TR max P.7 mmHg PA max P.5 mmHg Med Peak E' Akbar: 8.7 cm/sec PI Vmax: 63.8 cm/sec Med E/e': 16.4 Lat Peak E' Akbar: 8.7 cm/sec Lat E/e': 16.4 Procedure The study was technically adequate with some images being suboptimal in quality. The patient was in a trial fibrillation with controlled ventricular rate during the exam. Left Ventricle The left ventricle is normal in size. Left ventricular systolic function is severely reduced. Ejectio n Fraction = 25-30%. The transmitral spectral Doppler flow pattern is suggestive of restrictive physiol ogy. Right Ventricle The right ventricle is normal in size and function. Atria The left atrium is mildly dilated. The right atrium is mildly dilated. Mitral Valve The mitral valve is grossly normal. There is moderate mitral regurgitation. Tricuspid Valve The tricuspid valve is not well visualized. There is mild tricuspid regurgitation. Aortic Valve The aortic valve opens well. The aortic valve is not well visualized. No aortic regurgitation is pres ent. Pulmonic Valve The pulmonic valve is not well visualized. Great Vessels The aortic root is normal size. Pericardium/Pleura There is no pericardial effusion. Interpretation Summary In comparison to previous study performed 11/26/2018, severity of MR and TR has decreased. The left v entricle is normal in size. Left ventricular systolic function is severely reduced. Ejection Fraction = 25-30%. The left atrium is mildly dilated. The right atrium is mildly dilated. There is moderate mitral regurgitation. There is mild tricuspid regurgitation. In comparison to previous study performed 11/26/2018, severity of MR and TR has decreased. Hansel Goyal MD 06/29/2019 12:47 PM
[2019-06-29] MEDS: THIAMINE HCL 100 MG TABLET (FP) PO SCH (13:40)
--- NOTE | 2019-06-29 15:02 | PN ---
Progress Note, Physician History of Present Illness: Pt seen and examined at bedside. He is awake and alert. He complains of shortness of breath with ambulation. - Current Medication List Current Medications: Active Medications Apixaban (Eliquis -) 5 mg PO BID [facility] Last Admin: 06/29/19 09:59 Dose: 5 mg Digoxin (Lanoxin -) 0.125 mg PO DAILY [facility] Last Admin: 06/29/19 09:59 Dose: 0.125 mg Folic Acid (Folic Acid -) 1 mg PO DAILY [facility] Last Admin: 06/29/19 09:58 Dose: 1 mg Furosemide (Lasix Injection -) 40 mg IVPUSH BID [facility] Last Admin: 06/29/19 09:56 Dose: 40 mg Isosorbide Mononitrate (Imdur -) 60 mg PO DAILY [facility] Last Admin: 06/29/19 09:56 Dose: 60 mg Losartan Potassium (Cozaar -) 25 mg PO DAILY [facility] Last Admin: 06/29/19 09:57 Dose: 25 mg Montelukast Sodium (Singulair -) 10 mg PO HS [facility] Last Admin: 06/28/19 21:55 Dose: 10 mg Nystatin (Mycostatin Ointment -) 1 applic TP BID [facility] Last Admin: 06/29/19 13:42 Dose: 1 applic Ondansetron HCl (Zofran Injection) 4 mg IVPUSH Q6H PRN PRN Reason: NAUSEA AND/OR VOMITING Prednisone (Deltasone -) 10 mg PO DAILY [facility] Last Admin: 06/29/19 09:58 Dose: 10 mg Thiamine HCl (Vitamin B1 -) 100 mg PO DAILY [facility] Last Admin: 06/29/19 13:40 Dose: 100 mg Trazodone HCl (Desyrel -) 100 mg PO DAILY [facility] - Objective Vital Signs: Vital Signs Temperature 97.4 F L 06/29/19 05:45 Pulse Rate 88 06/29/19 09:59 Respiratory Rate 20 06/29/19 09:00 Blood Pressure 124/60 06/29/19 09:00 O2 Sat by Pulse Oximetry (%) 98 06/28/19 21:00 Constitutional: Yes: Calm Eyes: Yes: Conjunctiva Clear HENT: Yes: Atraumatic Neck: Yes: Supple Cardiovascular: Yes: S1, S2 Respiratory: Yes: On Nasal O2 Gastrointestinal: Yes: Soft, Abdomen, Obese Genitourinary: Yes: WNL Edema: Yes Edema: LLE: 2+, RLE: 2+ Neurological: Yes: Oriented Psychiatric: Yes: Oriented Labs: CBC, BMP 06/29/19 07:05 06/29/19 07:05 Problem List - Problems (1) CHF (congestive heart failure) Code(s): I50.9 - HEART FAILURE, UNSPECIFIED Qualifiers: Heart failure type: unspecified Heart failure chronicity: acute on chronic Qualified Code(s): I50.9 - Heart failure, unspecified (2) Hyponatremia Code(s): E87.1 - HYPO-OSMOLALITY AND HYPONATREMIA Assessment/Plan Current Medications Generic Name Dose Route Start Last Admin Trade Name Freq PRN Reason Stop Dose Admin Apixaban 5 mg 06/28/19 22:00 06/29/19 09:59 Eliquis - PO 5 mg BID [facility] Administration Digoxin 0.125 mg 06/29/19 10:00 06/29/19 09:59 Lanoxin - PO 0.125 mg DAILY [facility] Administration Folic Acid 1 mg 06/29/19 10:00 06/29/19 09:58 Folic Acid - PO 1 mg DAILY [facility] Administration Furosemide 40 mg 06/28/19 22:00 06/29/19 09:56 Lasix Injection - IVPUSH 40 mg BID [facility] Administration Isosorbide Mononitrate 60 mg 06/29/19 10:00 06/29/19 09:56 Imdur - PO 60 mg DAILY [facility] Administration Losartan Potassium 25 mg 06/29/19 10:00 06/29/19 09:57 Cozaar - PO 25 mg DAILY [facility] Administration Montelukast Sodium 10 mg 06/28/19 22:00 06/28/19 21:55 Singulair - PO 10 mg HS [facility] Administration Nystatin 1 applic 06/28/19 23:45 06/29/19 13:42 Mycostatin Ointment - TP 1 applic BID [facility] Administration Ondansetron HCl 4 mg 06/28/19 14:28 Zofran Injection IVPUSH Q6H PRN NAUSEA AND/OR VOMITING Prednisone 10 mg 06/29/19 10:00 06/29/19 09:58 Deltasone - PO 10 mg DAILY [facility] Administration Thiamine HCl 100 mg 06/29/19 10:00 06/29/19 13:40 Vitamin B1 - PO 100 mg DAILY [facility] Administration Trazodone HCl 100 mg 06/29/19 10:00 Desyrel - PO DAILY [facility] Impression 1. CHF 2. hyponatremia - hypervolemic 3. fluid overload 4. asthma 5. a-fib 6. DM Plan - cont with lasix - sodium is improving - monitor bp - discussed salt and fluid intake - repeat labs in am
[2019-06-29] MEDS ORDERED: ALBUTEROL SO4 2.5/IPRATROPIUM 0.5 INH SOL 3 ML VIAL.NEB. NEB PRN (15:14)
--- NOTE | 2019-06-29 15:17 | PN ---
Progress Note, Physician Chief Complaint: CHF Exacerbation History of Present Illness: Previous notes and events reviewed awake and alert NAD continue to have episodes of SOB, denies cough denies chest pain complains of generalized itching - Current Medication List Current Medications: Active Medications Albuterol/Ipratropium (Duoneb -) 1 amp NEB Q6H PRN PRN Reason: SHORTNESS OF BREATH Apixaban (Eliquis -) 5 mg PO BID [facility] Last Admin: 06/29/19 09:59 Dose: 5 mg Digoxin (Lanoxin -) 0.125 mg PO DAILY [facility] Last Admin: 06/29/19 09:59 Dose: 0.125 mg Folic Acid (Folic Acid -) 1 mg PO DAILY [facility] Last Admin: 06/29/19 09:58 Dose: 1 mg Furosemide (Lasix Injection -) 40 mg IVPUSH BID [facility] Last Admin: 06/29/19 09:56 Dose: 40 mg Isosorbide Mononitrate (Imdur -) 60 mg PO DAILY [facility] Last Admin: 06/29/19 09:56 Dose: 60 mg Losartan Potassium (Cozaar -) 25 mg PO DAILY [facility] Last Admin: 06/29/19 09:57 Dose: 25 mg Montelukast Sodium (Singulair -) 10 mg PO HS [facility] Last Admin: 06/28/19 21:55 Dose: 10 mg Nystatin (Mycostatin Ointment -) 1 applic TP BID [facility] Last Admin: 06/29/19 13:42 Dose: 1 applic Ondansetron HCl (Zofran Injection) 4 mg IVPUSH Q6H PRN PRN Reason: NAUSEA AND/OR VOMITING Prednisone (Deltasone -) 10 mg PO DAILY [facility] Last Admin: 06/29/19 09:58 Dose: 10 mg Thiamine HCl (Vitamin B1 -) 100 mg PO DAILY [facility] Last Admin: 06/29/19 13:40 Dose: 100 mg Trazodone HCl (Desyrel -) 100 mg PO DAILY [facility] - Objective Vital Signs: Vital Signs Temperature 97.4 F L 06/29/19 05:45 Pulse Rate 88 06/29/19 09:59 Respiratory Rate 20 06/29/19 09:00 Blood Pressure 124/60 06/29/19 09:00 O2 Sat by Pulse Oximetry (%) 98 06/28/19 21:00 Constitutional: Yes: No Distress, Calm, Obese Eyes: Yes: Conjunctiva Clear HENT: Yes: Atraumatic Cardiovascular: Yes: Regular Rate and Rhythm Respiratory: Yes: Regular, Diminished Gastrointestinal: Yes: Normal Bowel Sounds, Soft, Abdomen, Obese Musculoskeletal: Yes: Muscle Weakness Extremities: Yes: WNL Edema: Yes Edema: LLE: 1+, RLE: 1+ Integumentary: Yes: Erythema (lower extremity) Neurological: Yes: Alert, Oriented Psychiatric: Yes: Alert, Oriented Labs: CBC, BMP 06/29/19 07:05 06/29/19 07:05 Problem List - Problems (1) Abnormal liver function tests Assessment/Plan: -GI on board -AST 74, Alk phos 251 -monitor LFTs daily -Abd US shows hepatomegaly with fatty infiltration vs hepatocellular disease Code(s): R94.5 - ABNORMAL RESULTS OF LIVER FUNCTION STUDIES (2) Hyponatremia Assessment/Plan: -Na 132 -monitor electrolyte daily -Renal on board - Code(s): E87.1 - HYPO-OSMOLALITY AND HYPONATREMIA (3) Atrial fibrillation Assessment/Plan: -Cardiology on board -Eliquis -Digoxin for rate control Code(s): I48.91 - UNSPECIFIED ATRIAL FIBRILLATION Qualifiers: Atrial fibrillation type: persistent Qualified Code(s): I48.1 - Persistent atrial fibrillation (4) CHF exacerbation Assessment/Plan: -Cardiology on board -Furosemide -Losartan -1L fluid restriction -strict I&Os -daily weights Code(s): I50.9 - HEART FAILURE, UNSPECIFIED Qualifiers: Heart failure type: unspecified Qualified Code(s): I50.9 - Heart failure, unspecified (5) Hypertension Assessment/Plan: -Losartan -low Na diet Code(s): I10 - ESSENTIAL (PRIMARY) HYPERTENSION Qualifiers: Hypertension type: essential hypertension Qualified Code(s): I10 - Essential (primary) hypertension (6) COPD (chronic obstructive pulmonary disease) Assessment/Plan: -Bronchodilators -Pulm on board -O2 via NC -keep SpO2 >90% -prednisone -Singulair Code(s): J44.9 - CHRONIC OBSTRUCTIVE PULMONARY DISEASE, UNSPECIFIED Qualifiers: COPD type: unspecified COPD Qualified Code(s): J44.9 - Chronic obstructive pulmonary disease, unspecified Assessment/Plan see problem list dvt ppx
--- NOTE | 2019-06-29 15:24 | PN ---
Progress Note, Physician Chief Complaint: Coughing SOB History of Present Illness: This is a 63 year old male with a PMH of HTN, DM, HLD, mild non-obstructive CAD from cardiac cath on 07/25/2016 at [facility], systolic CHF secondary to non- ischemic cardiomyopathy with known low EF 30-35% 08/2018, chronic afib (on Eliquis) and COPD. He was admitted last week with with nausea and diarrhea, vomiting and was not taking his medications. He then developed SOB and orthopnea. - Current Medication List Current Medications: Active Medications Albuterol/Ipratropium (Duoneb -) 1 amp NEB Q6H PRN PRN Reason: SHORTNESS OF BREATH Apixaban (Eliquis -) 5 mg PO BID [facility] Last Admin: 06/29/19 09:59 Dose: 5 mg Digoxin (Lanoxin -) 0.125 mg PO DAILY [facility] Last Admin: 06/29/19 09:59 Dose: 0.125 mg Folic Acid (Folic Acid -) 1 mg PO DAILY [facility] Last Admin: 06/29/19 09:58 Dose: 1 mg Furosemide (Lasix Injection -) 40 mg IVPUSH BID [facility] Last Admin: 06/29/19 09:56 Dose: 40 mg Isosorbide Mononitrate (Imdur -) 60 mg PO DAILY [facility] Last Admin: 06/29/19 09:56 Dose: 60 mg Losartan Potassium (Cozaar -) 25 mg PO DAILY [facility] Last Admin: 06/29/19 09:57 Dose: 25 mg Montelukast Sodium (Singulair -) 10 mg PO HS [facility] Last Admin: 06/28/19 21:55 Dose: 10 mg Nystatin (Mycostatin Ointment -) 1 applic TP BID [facility] Last Admin: 06/29/19 13:42 Dose: 1 applic Ondansetron HCl (Zofran Injection) 4 mg IVPUSH Q6H PRN PRN Reason: NAUSEA AND/OR VOMITING Prednisone (Deltasone -) 10 mg PO DAILY [facility] Last Admin: 06/29/19 09:58 Dose: 10 mg Thiamine HCl (Vitamin B1 -) 100 mg PO DAILY [facility] Last Admin: 06/29/19 13:40 Dose: 100 mg Trazodone HCl (Desyrel -) 100 mg PO DAILY [facility] - Objective Vital Signs: Vital Signs Temperature 97.4 F L 06/29/19 05:45 Pulse Rate 88 06/29/19 09:59 Respiratory Rate 20 06/29/19 09:00 Blood Pressure 124/60 06/29/19 09:00 O2 Sat by Pulse Oximetry (%) 98 06/28/19 21:00 Constitutional: Yes: No Distress, Obese HENT: Yes: WNL Neck: Yes: WNL Cardiovascular: Yes: Pulse Irregular, Murmur (HSM 2/6), S1, S2 Respiratory: Yes: Rhonchi (Scattered bilateral rhonchi) Gastrointestinal: Yes: Normal Bowel Sounds, Soft Edema: Yes Edema: LLE: 1+, RLE: 1+ Neurological: Yes: Alert, Oriented Labs: CBC, BMP 06/29/19 07:05 06/29/19 07:05 Assessment/Plan 63 year old male with a PMH of HTN, DM, HLD, mild non-obstructive CAD from cardiac cath on 07/25/2016 at [facility], systolic CHF secondary to non-ischemic cardiomyopathy with known low EF 30-35% 08/2018, chronic afib (on Eliquis) and COPD. He was admitted last week with with nausea and diarrhea, vomiting and was not taking his medications. He then developed SOB and orthopnea. Echocardiogram 06/29/19: EF 25-30% Moderate MR Mild TR Systolic CHF Acute on chronic Continue Lasi 40 mg IVSS BID Daily I's/O's/Wt's/Lytes Continue Losartan 25 mg PO daily AFIB Continue AC with Eliquis 5 mg PO BID Rate control with Digoxin 125 mcg po daily
--- NOTE | 2019-06-29 15:52 | PN ---
Progress Note (short form) - Note Progress Note: GI follow up No new events. No abdominal pain. Reports swelling may be improving in legs. Additional hx - pt reports he drinks 3 beers QOD, but these are each 24 oz He reports he knows he has a fatty liver Vital Signs Temp 97.9 F 06/29/19 13:00 Pulse 87 06/29/19 13:00 Resp 20 06/29/19 13:00 BP 130/73 06/29/19 13:00 Pulse Ox 98 06/28/19 21:00 NAD Anicteric abd soft NT Labs reviewed CBC, BMP 06/29/19 07:05 06/29/19 07:05 Hepatic Panel Total Bilirubin 1.8 mg/dL (0.2-1) H 06/28/19 05:24 Direct Bilirubin 1.3 mg/dL (0.0-0.2) H 06/28/19 05:24 AST 74 U/L (15-37) H 06/28/19 05:24 ALT 53 U/L (13-61) 06/28/19 05:24 Alkaline Phosphatase 251 U/L (45-117) H 06/28/19 05:24 Albumin 2.1 g/dl (3.4-5.0) L 06/28/19 05:24 Impression: Abnormal LFTs likely multifactorial - ETOH, congestive hepatopathy given EF 30-35%, on underlying fatty liver disease. Continue to trend LFTs. Await serological w/u to rule out other etiologies.
[2019-06-29] MEDS: diphenhydrAMINE HCL 25 MG CAPSULE (FP) PO PRN ×2 (16:10→22:14)
[2019-06-29 20:10] LABS: HEP B CORE AB, TOT Negative (Negative)
[2019-06-29] MEDS: MONTELUKAST NA 10 MG TABLET PO SCH (22:14)
[2019-06-30 06:11] LABS: ALPHA-1-ANTITRYPSIN 191 mg/dL (90-200)
[2019-06-30 08:05] LABS: HEMATOCRIT 33.1 % (35.4-49); HEMOGLOBIN 11.1 GM/dL (11.7-16.9); MCH 31.1 pg (25.7-33.7); MCHC 33.7 g/dl (32.0-35.9); MEAN CELL VOLUME 92.5 fl (80-96); PLATELET COUNT 142 K/MM3 (134-434); RBC 3.58 M/mm3 (4.00-5.60); RDW 20.7 % (11.9-15.9); WHITE BLOOD COUNT 6.4 K/mm3 (4.0-10.0)
[2019-06-30 08:16] LABS: BLOOD UREA NITROGEN 22.4 mg/dL (7-18); CALCIUM 7.1 mg/dL (8.5-10.1); CREATININE 0.9 mg/dL (0.55-1.3); MAGNESIUM 1.2 mg/dL (1.8-2.4); POTASSIUM 3.5 mmol/L (3.5-5.1)
[2019-06-30] MEDS: ISOSORBIDE MONONITRATE 60 MG TAB.SR.24H (FP) PO SCH (10:41)
[2019-06-30] MEDS: LOSARTAN POTASSIUM 25 MG TABLET PO SCH (10:42)
[2019-06-30] MEDS: APIXABAN 5 MG TABLET PO SCH ×2 (10:42→22:33)
[2019-06-30] MEDS: DIGOXIN 0.125 MG TABLET (FP) PO SCH (10:43)
[2019-06-30] MEDS: THIAMINE HCL 100 MG TABLET (FP) PO SCH (10:44)
[2019-06-30] MEDS: predniSONE 10 MG TABLET (UD) PO SCH (10:46)
[2019-06-30] MEDS: FOLIC ACID 1 MG TABLET (FP) PO SCH (10:48)
[2019-06-30] MEDS: diphenhydrAMINE HCL 25 MG CAPSULE (FP) PO PRN ×2 (11:21→22:33)
[2019-06-30] MEDS: FUROSEMIDE 40 MG/4 ML INJECTABLE VIAL IVPUSH SCH ×2 (11:22→22:34)
[2019-06-30] MEDS: NYSTATIN 100000 UNIT/GM TOPICAL OINTMENT 15 GM TUBE TP SCH ×2 (11:28→22:34)
--- NOTE | 2019-06-30 11:57 | PN ---
Progress Note, Physician History of Present Illness: seen and examined today. states he feels the same as yesterday. frustrated because he wants to eat more ice chips. - Current Medication List Current Medications: Active Medications Albuterol/Ipratropium (Duoneb -) 1 amp NEB Q6H PRN PRN Reason: SHORTNESS OF BREATH Apixaban (Eliquis -) 5 mg PO BID [facility] Last Admin: 06/30/19 10:42 Dose: 5 mg Digoxin (Lanoxin -) 0.125 mg PO DAILY [facility] Last Admin: 06/30/19 10:43 Dose: 0.125 mg Diphenhydramine HCl (Benadryl -) 25 mg PO Q6H PRN PRN Reason: FOR ITCHING Last Admin: 06/30/19 11:21 Dose: 25 mg Folic Acid (Folic Acid -) 1 mg PO DAILY [facility] Last Admin: 06/30/19 10:48 Dose: 1 mg Furosemide (Lasix Injection -) 40 mg IVPUSH BID [facility] Last Admin: 06/30/19 11:22 Dose: 40 mg Isosorbide Mononitrate (Imdur -) 60 mg PO DAILY [facility] Last Admin: 06/30/19 10:41 Dose: 60 mg Losartan Potassium (Cozaar -) 25 mg PO DAILY [facility] Last Admin: 06/30/19 10:42 Dose: 25 mg Montelukast Sodium (Singulair -) 10 mg PO HS [facility] Last Admin: 06/29/19 22:14 Dose: 10 mg Nystatin (Mycostatin Ointment -) 1 applic TP BID [facility] Last Admin: 06/30/19 11:28 Dose: 1 applic Ondansetron HCl (Zofran Injection) 4 mg IVPUSH Q6H PRN PRN Reason: NAUSEA AND/OR VOMITING Prednisone (Deltasone -) 10 mg PO DAILY [facility] Last Admin: 06/30/19 10:46 Dose: 10 mg Thiamine HCl (Vitamin B1 -) 100 mg PO DAILY [facility] Last Admin: 06/30/19 10:44 Dose: 100 mg Trazodone HCl (Desyrel -) 100 mg PO DAILY [facility] - Objective Vital Signs: Vital Signs Temperature 97.3 F L 06/30/19 10:00 Pulse Rate 91 H 06/30/19 10:43 Respiratory Rate 20 06/30/19 10:00 Blood Pressure 103/59 L 06/30/19 10:00 O2 Sat by Pulse Oximetry (%) 98 06/29/19 21:00 Constitutional: Yes: No Distress, Calm Eyes: Yes: Conjunctiva Clear, EOM Intact HENT: Yes: Atraumatic, Normocephalic Neck: Yes: Supple, Trachea Midline Cardiovascular: Yes: Regular Rate and Rhythm, S1, S2. No: Bradycardia, Tachycardia, Pulse Irregular, Bruit, JVD, Gallop, Murmur, Rub, S3, S4, Varicosities Respiratory: Yes: Regular, Diminished, Rales, Wheezes. No: Rhonchi, SOB Gastrointestinal: Yes: Normal Bowel Sounds, Soft. No: Distention, Tenderness Edema: Yes Edema: LLE: Trace, RLE: Trace Peripheral Pulses WNL: Yes Neurological: Yes: Alert, Oriented Psychiatric: Yes: Alert, Oriented Labs: CBC, BMP 06/30/19 07:15 06/30/19 07:15 - ....Imaging Chest X-ray: Report Reviewed, Image Reviewed EKG: Report Reviewed, Image Reviewed Other: Report Reviewed, Image Reviewed Assessment/Plan 63 year old male with a PMH of HTN, DM, HLD, mild non-obstructive CAD from cardiac cath on 07/25/2016 at [facility], systolic CHF secondary to non-ischemic cardiomyopathy with known low EF 30-35% 08/2018, chronic afib (on Eliquis) and COPD. He was admitted last week with with nausea and diarrhea, vomiting and was not taking his medications. He then developed SOB and orthopnea. Echocardiogram 06/29/19: EF 25-30% Moderate MR Mild TR Systolic CHF Acute on chronic Continue Lasix 40 mg IVSS BID monitor Daily I's/O's/Wt's/Lytes Fluid restriction 1L/24hr Continue Losartan 25 mg PO daily AFIB-Hr adequately controlled currently Continue AC with Eliquis 5 mg PO BID Rate control with Digoxin 125 mcg po daily
--- NOTE | 2019-06-30 15:20 | PN ---
Progress Note, Physician History of Present Illness: Pt seen and examined at bedside. He is awake and alert. He feels that the edema is starting to improved. He feels that his breathing is improving. - Current Medication List Current Medications: Active Medications Albuterol/Ipratropium (Duoneb -) 1 amp NEB Q6H PRN PRN Reason: SHORTNESS OF BREATH Apixaban (Eliquis -) 5 mg PO BID [facility] Last Admin: 06/30/19 10:42 Dose: 5 mg Digoxin (Lanoxin -) 0.125 mg PO DAILY [facility] Last Admin: 06/30/19 10:43 Dose: 0.125 mg Diphenhydramine HCl (Benadryl -) 25 mg PO Q6H PRN PRN Reason: FOR ITCHING Last Admin: 06/30/19 11:21 Dose: 25 mg Folic Acid (Folic Acid -) 1 mg PO DAILY [facility] Last Admin: 06/30/19 10:48 Dose: 1 mg Furosemide (Lasix Injection -) 40 mg IVPUSH BID [facility] Last Admin: 06/30/19 11:22 Dose: 40 mg Isosorbide Mononitrate (Imdur -) 60 mg PO DAILY [facility] Last Admin: 06/30/19 10:41 Dose: 60 mg Losartan Potassium (Cozaar -) 25 mg PO DAILY [facility] Last Admin: 06/30/19 10:42 Dose: 25 mg Montelukast Sodium (Singulair -) 10 mg PO HS [facility] Last Admin: 06/29/19 22:14 Dose: 10 mg Nystatin (Mycostatin Ointment -) 1 applic TP BID [facility] Last Admin: 06/30/19 11:28 Dose: 1 applic Ondansetron HCl (Zofran Injection) 4 mg IVPUSH Q6H PRN PRN Reason: NAUSEA AND/OR VOMITING Prednisone (Deltasone -) 10 mg PO DAILY [facility] Last Admin: 06/30/19 10:46 Dose: 10 mg Thiamine HCl (Vitamin B1 -) 100 mg PO DAILY [facility] Last Admin: 06/30/19 10:44 Dose: 100 mg Trazodone HCl (Desyrel -) 100 mg PO DAILY [facility] - Objective Vital Signs: Vital Signs Temperature 97.3 F L 06/30/19 10:00 Pulse Rate 91 H 06/30/19 10:43 Respiratory Rate 20 06/30/19 10:00 Blood Pressure 103/59 L 06/30/19 10:00 O2 Sat by Pulse Oximetry (%) 98 06/29/19 21:00 Constitutional: Yes: Calm Eyes: Yes: Conjunctiva Clear HENT: Yes: Atraumatic Neck: Yes: Supple Cardiovascular: Yes: S1, S2 Respiratory: Yes: CTA Bilaterally Gastrointestinal: Yes: Soft Genitourinary: Yes: WNL Musculoskeletal: Yes: WNL Edema: Yes Edema: LLE: 2+, RLE: 2+ Neurological: Yes: Oriented Psychiatric: Yes: Oriented Labs: CBC, BMP 06/30/19 07:15 06/30/19 07:15 Problem List - Problems (1) CHF (congestive heart failure) Code(s): I50.9 - HEART FAILURE, UNSPECIFIED Qualifiers: Heart failure type: unspecified Heart failure chronicity: acute on chronic Qualified Code(s): I50.9 - Heart failure, unspecified (2) Hyponatremia Code(s): E87.1 - HYPO-OSMOLALITY AND HYPONATREMIA Assessment/Plan Current Medications Generic Name Dose Route Start Last Admin Trade Name Freq PRN Reason Stop Dose Admin Albuterol/Ipratropium 1 amp 06/29/19 15:14 Duoneb - NEB Q6H PRN SHORTNESS OF BREATH Apixaban 5 mg 06/28/19 22:00 06/30/19 10:42 Eliquis - PO 5 mg BID [facility] Administration Digoxin 0.125 mg 06/29/19 10:00 06/30/19 10:43 Lanoxin - PO 0.125 mg DAILY [facility] Administration Diphenhydramine HCl 25 mg 06/29/19 15:15 06/30/19 11:21 Benadryl - PO 25 mg Q6H PRN Administration FOR ITCHING Folic Acid 1 mg 06/29/19 10:00 06/30/19 10:48 Folic Acid - PO 1 mg DAILY [facility] Administration Furosemide 40 mg 06/28/19 22:00 06/30/19 11:22 Lasix Injection - IVPUSH 40 mg BID [facility] Administration Isosorbide Mononitrate 60 mg 06/29/19 10:00 06/30/19 10:41 Imdur - PO 60 mg DAILY [facility] Administration Losartan Potassium 25 mg 06/29/19 10:00 06/30/19 10:42 Cozaar - PO 25 mg DAILY [facility] Administration Montelukast Sodium 10 mg 06/28/19 22:00 06/29/19 22:14 Singulair - PO 10 mg HS [facility] Administration Nystatin 1 applic 06/28/19 23:45 06/30/19 11:28 Mycostatin Ointment - TP 1 applic BID [facility] Administration Ondansetron HCl 4 mg 06/28/19 14:28 Zofran Injection IVPUSH Q6H PRN NAUSEA AND/OR VOMITING Prednisone 10 mg 06/29/19 10:00 06/30/19 10:46 Deltasone - PO 10 mg DAILY [facility] Administration Thiamine HCl 100 mg 06/29/19 10:00 06/30/19 10:44 Vitamin B1 - PO 100 mg DAILY [facility] Administration Trazodone HCl 100 mg 06/29/19 10:00 Desyrel - PO DAILY [facility] Impression 1. CHF 2. hyponatremia - hypervolemic 3. fluid overload 4. asthma 5. a-fib 6. DM Plan - sodium is improving - hypervolemic hyponatremia from chf - discussed diet at length, pt is on a high salt diet at home - cont to monitor sodium and renal function - monitor bp - repeat labs in am
--- NOTE | 2019-06-30 16:07 | PN ---
Progress Note, Physician Chief Complaint: CHF Exacerbation History of Present Illness: Previous notes and events reviewed awake and alert NAD continue to have episodes of SOB complain of dry cough denies chest pain - Current Medication List Current Medications: Active Medications Albuterol/Ipratropium (Duoneb -) 1 amp NEB Q6H PRN PRN Reason: SHORTNESS OF BREATH Apixaban (Eliquis -) 5 mg PO BID [facility] Last Admin: 06/30/19 10:42 Dose: 5 mg Digoxin (Lanoxin -) 0.125 mg PO DAILY [facility] Last Admin: 06/30/19 10:43 Dose: 0.125 mg Diphenhydramine HCl (Benadryl -) 25 mg PO Q6H PRN PRN Reason: FOR ITCHING Last Admin: 06/30/19 11:21 Dose: 25 mg Folic Acid (Folic Acid -) 1 mg PO DAILY [facility] Last Admin: 06/30/19 10:48 Dose: 1 mg Furosemide (Lasix Injection -) 40 mg IVPUSH BID [facility] Last Admin: 06/30/19 11:22 Dose: 40 mg Isosorbide Mononitrate (Imdur -) 60 mg PO DAILY [facility] Last Admin: 06/30/19 10:41 Dose: 60 mg Losartan Potassium (Cozaar -) 25 mg PO DAILY [facility] Last Admin: 06/30/19 10:42 Dose: 25 mg Montelukast Sodium (Singulair -) 10 mg PO HS [facility] Last Admin: 06/29/19 22:14 Dose: 10 mg Nystatin (Mycostatin Ointment -) 1 applic TP BID [facility] Last Admin: 06/30/19 11:28 Dose: 1 applic Ondansetron HCl (Zofran Injection) 4 mg IVPUSH Q6H PRN PRN Reason: NAUSEA AND/OR VOMITING Prednisone (Deltasone -) 10 mg PO DAILY [facility] Last Admin: 06/30/19 10:46 Dose: 10 mg Thiamine HCl (Vitamin B1 -) 100 mg PO DAILY [facility] Last Admin: 06/30/19 10:44 Dose: 100 mg Trazodone HCl (Desyrel -) 100 mg PO DAILY [facility] - Objective Vital Signs: Vital Signs Temperature 97.5 F L 06/30/19 14:00 Pulse Rate 77 06/30/19 14:00 Respiratory Rate 20 06/30/19 14:00 Blood Pressure 127/54 L 06/30/19 14:00 O2 Sat by Pulse Oximetry (%) 98 06/29/19 21:00 Constitutional: Yes: No Distress, Calm, Obese Eyes: Yes: Conjunctiva Clear HENT: Yes: Atraumatic Cardiovascular: Yes: Regular Rate and Rhythm Respiratory: Yes: Regular, Diminished Gastrointestinal: Yes: Normal Bowel Sounds, Soft, Abdomen, Obese Musculoskeletal: Yes: Muscle Weakness Extremities: Yes: WNL Edema: Yes Edema: LLE: 2+, RLE: 2+ Neurological: Yes: Alert, Oriented Psychiatric: Yes: Alert, Oriented Labs: CBC, BMP 06/30/19 07:15 06/30/19 07:15 Problem List - Problems (1) Abnormal liver function tests Assessment/Plan: -GI on board -AST 74, Alk phos 251 -monitor LFTs daily -Abd US shows hepatomegaly with fatty infiltration vs hepatocellular disease Code(s): R94.5 - ABNORMAL RESULTS OF LIVER FUNCTION STUDIES (2) Hyponatremia Assessment/Plan: -Na 134 -monitor electrolyte daily -Renal on board - Code(s): E87.1 - HYPO-OSMOLALITY AND HYPONATREMIA (3) Atrial fibrillation Assessment/Plan: -Cardiology on board -Eliquis -Digoxin for rate control Code(s): I48.91 - UNSPECIFIED ATRIAL FIBRILLATION Qualifiers: Atrial fibrillation type: persistent Qualified Code(s): I48.1 - Persistent atrial fibrillation (4) CHF exacerbation Assessment/Plan: -Cardiology on board -Furosemide -Losartan -1L fluid restriction -strict I&Os -daily weights Code(s): I50.9 - HEART FAILURE, UNSPECIFIED Qualifiers: Heart failure type: unspecified Qualified Code(s): I50.9 - Heart failure, unspecified (5) Hypertension Assessment/Plan: -Losartan -low Na diet Code(s): I10 - ESSENTIAL (PRIMARY) HYPERTENSION Qualifiers: Hypertension type: essential hypertension Qualified Code(s): I10 - Essential (primary) hypertension (6) COPD (chronic obstructive pulmonary disease) Assessment/Plan: -Bronchodilators -Pulm on board -O2 via NC -keep SpO2 >90% -prednisone -Singulair Code(s): J44.9 - CHRONIC OBSTRUCTIVE PULMONARY DISEASE, UNSPECIFIED Qualifiers: COPD type: unspecified COPD Qualified Code(s): J44.9 - Chronic obstructive pulmonary disease, unspecified Assessment/Plan see problem list dvt ppx
--- NOTE | 2019-06-30 16:44 | PN ---
Progress Note, Physician History of Present Illness: pulmonary alert c/o mild sob with movement,-cp - Current Medication List Current Medications: Active Medications Albuterol/Ipratropium (Duoneb -) 1 amp NEB Q6H PRN PRN Reason: SHORTNESS OF BREATH Apixaban (Eliquis -) 5 mg PO BID [facility] Last Admin: 06/30/19 10:42 Dose: 5 mg Digoxin (Lanoxin -) 0.125 mg PO DAILY [facility] Last Admin: 06/30/19 10:43 Dose: 0.125 mg Diphenhydramine HCl (Benadryl -) 25 mg PO Q6H PRN PRN Reason: FOR ITCHING Last Admin: 06/30/19 11:21 Dose: 25 mg Folic Acid (Folic Acid -) 1 mg PO DAILY [facility] Last Admin: 06/30/19 10:48 Dose: 1 mg Furosemide (Lasix Injection -) 40 mg IVPUSH BID [facility] Last Admin: 06/30/19 11:22 Dose: 40 mg Isosorbide Mononitrate (Imdur -) 60 mg PO DAILY [facility] Last Admin: 06/30/19 10:41 Dose: 60 mg Losartan Potassium (Cozaar -) 25 mg PO DAILY [facility] Last Admin: 06/30/19 10:42 Dose: 25 mg Montelukast Sodium (Singulair -) 10 mg PO HS [facility] Last Admin: 06/29/19 22:14 Dose: 10 mg Nystatin (Mycostatin Ointment -) 1 applic TP BID [facility] Last Admin: 06/30/19 11:28 Dose: 1 applic Ondansetron HCl (Zofran Injection) 4 mg IVPUSH Q6H PRN PRN Reason: NAUSEA AND/OR VOMITING Prednisone (Deltasone -) 10 mg PO DAILY [facility] Last Admin: 06/30/19 10:46 Dose: 10 mg Thiamine HCl (Vitamin B1 -) 100 mg PO DAILY [facility] Last Admin: 06/30/19 10:44 Dose: 100 mg Trazodone HCl (Desyrel -) 100 mg PO DAILY [facility] - Objective Vital Signs: Vital Signs Temperature 97.5 F L 06/30/19 14:00 Pulse Rate 77 06/30/19 14:00 Respiratory Rate 20 06/30/19 14:00 Blood Pressure 127/54 L 06/30/19 14:00 O2 Sat by Pulse Oximetry (%) 98 06/29/19 21:00 Constitutional: Yes: Calm, Obese Eyes: Yes: WNL HENT: Yes: WNL Neck: Yes: WNL Cardiovascular: Yes: Pulse Irregular, S1, S2 Respiratory: Yes: Wheezes (few wheezes) Gastrointestinal: Yes: Normal Bowel Sounds, Abdomen, Obese Extremities: Yes: WNL Edema: Yes Labs: CBC, BMP 06/30/19 07:15 06/30/19 07:15 Problem List - Problems (1) Abnormal liver function tests Code(s): R94.5 - ABNORMAL RESULTS OF LIVER FUNCTION STUDIES (2) CHF (congestive heart failure) Code(s): I50.9 - HEART FAILURE, UNSPECIFIED Qualifiers: Heart failure type: unspecified Heart failure chronicity: acute on chronic Qualified Code(s): I50.9 - Heart failure, unspecified (3) COPD (chronic obstructive pulmonary disease) Code(s): J44.9 - CHRONIC OBSTRUCTIVE PULMONARY DISEASE, UNSPECIFIED Qualifiers: COPD type: unspecified COPD Qualified Code(s): J44.9 - Chronic obstructive pulmonary disease, unspecified (4) Hyponatremia Code(s): E87.1 - HYPO-OSMOLALITY AND HYPONATREMIA (5) Acute on chronic diastolic CHF (congestive heart failure) Code(s): I50.33 - ACUTE ON CHRONIC DIASTOLIC (CONGESTIVE) HEART FAILURE (6) Atrial fibrillation Code(s): I48.91 - UNSPECIFIED ATRIAL FIBRILLATION Qualifiers: Atrial fibrillation type: persistent Qualified Code(s): I48.1 - Persistent atrial fibrillation (7) CAD (coronary artery disease) Code(s): I25.10 - ATHSCL HEART DISEASE OF [place] CORONARY ARTERY W/O ANG PCTRS Qualifiers: Coronary Disease-Associated Artery/Lesion type: [place] artery [place] vs. transplanted heart: [place] heart Associated angina: without angina Qualified Code(s): I25.10 - Atherosclerotic heart disease of [place] coronary artery without angina pectoris (8) Diabetes Code(s): E11.9 - TYPE 2 DIABETES MELLITUS WITHOUT COMPLICATIONS Qualifiers: Diabetes mellitus type: type 2 (9) Elevated LFTs Code(s): R94.5 - ABNORMAL RESULTS OF LIVER FUNCTION STUDIES (10) Shortness of breath Code(s): R06.02 - SHORTNESS OF BREATH Assessment/Plan ASSESSMENT/PLAN: Hypervolemic hyponatremia in the setting of poor solute intake, chronic alcoholism, and CHF improving HFrEF Transaminitis 2/2 to alcohol abuse and congestive hepatopathy Severe lv dysfunction Hx of COPD Permanent Atrial fibrillation OSAS HTN HLD Lasix BID CPAP QHS O2 as needed Strict I & O Prednisone Singulair Daily weights Eliquis Follow Liver function testing DR TEJEDA
--- NOTE | 2019-06-30 17:29 | PN.GI ---
GI Progress Note Subjective: No abdominal complaints - Objective Vital Signs: Vital Signs Temperature 97.5 F L 06/30/19 14:00 Pulse Rate 77 06/30/19 14:00 Respiratory Rate 20 06/30/19 14:00 Blood Pressure 127/54 L 06/30/19 14:00 O2 Sat by Pulse Oximetry (%) 97 06/30/19 09:00 Constitutional: Calm Eyes: No: Sclera Icterus Cardiovascular: Yes: Regular Rate and Rhythm. No: Murmur Respiratory: Yes: Diminished (at bases bilaterally) Gastrointestinal Inspection: No: Distention ...Auscultate: Yes: Normoactive Bowel Sounds ...Palpate: Yes: Soft. No: Hepatomegaly, Splenomegaly, Tenderness ...Percussion: No: Tympanitic Breast(s): Yes: Gynecomastia Edema: Yes Edema: LLE: 1+ (w/ erythema), RLE: 1+ (w/ erythema) Labs: CBC, BMP 06/30/19 07:15 06/30/19 07:15 Laboratory Tests 11/28/18 12/02/18 06/28/19 16:45 05:30 05:24 Hep A IgM Ab Confirm Negative Hepatitis A Ab Total Negative Negative Hep Bs Antigen Negative Negative Hep Bs Antibody Non reactive Non reactive Hep B Core Total Ab Negative Negative Hep B Core IgM Ab Negative Hep C Ab Diagnostic <0.1 Hepatitis Be Antibody Negative Hepatitis Be Antigen Negative HCV Quantitation Influenza A (Rapid) Negative Influenza B (Rapid) Negative 06/28/19 05:24 Hep A IgM Ab Confirm Hepatitis A Ab Total Hep Bs Antigen Hep Bs Antibody Hep B Core Total Ab Hep B Core IgM Ab Hep C Ab Diagnostic Hepatitis Be Antibody Hepatitis Be Antigen HCV Quantitation Hcv not detected Influenza A (Rapid) Influenza B (Rapid) Problem List - Problems (1) Abnormal liver function tests Assessment/Plan: Asymptomatic mixerd cholestatic and hepatocellular liver dysfunction picture that seems to have improved without intervention. Alkaline phosphatase has been elevated for quite some time and it is uncertain if he has had outpatient work- up of this (with normal transaminases). I suspect that there is some component of chronic liver disease, likely from fatty liver and alcohol consumption, worsened now by acute CHF exacerbation. US reveals borederline CBD however no gallstones were noted on prior US studies. I have advised the following: Monitor LFTs / coags MRCP,when feasible from cardiopulmonary standpoint, for evaluation of abnormal LFTs and biliary tract Explained to Mr. Bowens that he needs to completely abstain from alcohol While on A/C and corticosteroids, added PPI for GI prophylaxis Code(s): R94.5 - ABNORMAL RESULTS OF LIVER FUNCTION STUDIES
[2019-06-30] MEDS ORDERED: GABAPENTIN 100 MG CAPSULE (FP) PO ONE (22:26)
[2019-06-30] MEDS: MONTELUKAST NA 10 MG TABLET PO SCH (22:33)
[2019-07-01 09:00] LABS: HEMATOCRIT 36.4 % (35.4-49); HEMOGLOBIN 11.7 GM/dL (11.7-16.9); MCH 30.6 pg (25.7-33.7); MCHC 32.1 g/dl (32.0-35.9); MEAN CELL VOLUME 95.1 fl (80-96); MEAN PLT VOLUME 9.1 fl (7.5-11.1); PLATELET COUNT 128 K/MM3 (134-434); RBC 3.83 M/mm3 (4.00-5.60); WHITE BLOOD COUNT 5.7 K/mm3 (4.0-10.0)
--- NOTE | 2019-07-01 09:05 | PN.GI ---
GI Progress Note Subjective: Pt seen/examined at bedside, feeling slightly better, still with with intermittent dyspnea. Denies abdominal pain, n/v. Moving bowels, denies melena or hematochezia. - Objective Vital Signs: Vital Signs Temperature 97.7 F 07/01/19 06:00 Pulse Rate 94 H 07/01/19 06:00 Respiratory Rate 20 07/01/19 06:00 Blood Pressure 115/63 07/01/19 06:00 O2 Sat by Pulse Oximetry (%) 97 06/30/19 21:00 Constitutional: Well Nourished, No Distress, Calm Cardiovascular: Yes: WNL, Regular Rate and Rhythm Respiratory: Yes: WNL, Regular, CTA Bilaterally ...Palpate: Yes: Other (Abd soft, nt, nd) Problem List - Problems (1) Abnormal liver function tests Assessment/Plan: 64yo male h/o CHF, COPD with elevated LFTs. Likely multifactorial with mixed pattern possibly secondary to congestive hepatopathy in setting of underlying NAFLD vs etoh component. Does not appear to be obstructive process. LFTs are improving. Labs/imaging otherwise not consistent with advanced liver disease/ cirrhosis. -Await labs today -HBV vaccination as previously noted -Considering borderline bili elevation can pursue MRCP when further optimized though if LFTs continue to downtrend likely would be low yield and no obvious biliary dilation seen on most recent US imaging -Check coags -Continue cardio/respiratory optimization per primary team Code(s): R94.5 - ABNORMAL RESULTS OF LIVER FUNCTION STUDIES
[2019-07-01 09:31] LABS: ALBUMIN 2.5 g/dl (3.4-5.0); BILIRUBIN,TOTAL 1.1 mg/dL (0.2-1); BLOOD UREA NITROGEN 25.7 mg/dL (7-18); CALCIUM 7.2 mg/dL (8.5-10.1); CREATININE 1.1 mg/dL (0.55-1.3); POTASSIUM 3.6 mmol/L (3.5-5.1); TOT PROT 6.7 g/dl (6.4-8.2)
[2019-07-01] MEDS: FUROSEMIDE 40 MG/4 ML INJECTABLE VIAL IVPUSH SCH ×2 (11:05→17:01)
[2019-07-01] MEDS: ISOSORBIDE MONONITRATE 60 MG TAB.SR.24H (FP) PO SCH (11:06)
[2019-07-01] MEDS: PANTOPRAZOLE 20 MG TABLET (FP) PO SCH (11:06)
[2019-07-01] MEDS: FOLIC ACID 1 MG TABLET (FP) PO SCH (11:06)
[2019-07-01] MEDS: predniSONE 10 MG TABLET (UD) PO SCH (11:07)
[2019-07-01] MEDS: LOSARTAN POTASSIUM 25 MG TABLET PO SCH (11:07)
[2019-07-01] MEDS: DIGOXIN 0.125 MG TABLET (FP) PO SCH (11:07)
[2019-07-01] MEDS: APIXABAN 5 MG TABLET PO SCH ×2 (11:07→22:44)
[2019-07-01] MEDS: THIAMINE HCL 100 MG TABLET (FP) PO SCH (11:08)
--- NOTE | 2019-07-01 13:01 | PN ---
Progress Note, Physician History of Present Illness: PULMONARY ALERT,FEELING BETTER,COMFORTABLE,DYSPNEA IMPROVING - Current Medication List Current Medications: Active Medications Albuterol/Ipratropium (Duoneb -) 1 amp NEB Q6H PRN PRN Reason: SHORTNESS OF BREATH Apixaban (Eliquis -) 5 mg PO BID [facility] Last Admin: 07/01/19 11:07 Dose: 5 mg Digoxin (Lanoxin -) 0.125 mg PO DAILY [facility] Last Admin: 07/01/19 11:07 Dose: 0.125 mg Diphenhydramine HCl (Benadryl -) 25 mg PO Q6H PRN PRN Reason: FOR ITCHING Last Admin: 06/30/19 22:33 Dose: 25 mg Folic Acid (Folic Acid -) 1 mg PO DAILY [facility] Last Admin: 07/01/19 11:06 Dose: 1 mg Furosemide (Lasix Injection -) 40 mg IVPUSH BID [facility] Last Admin: 07/01/19 11:05 Dose: 40 mg Isosorbide Mononitrate (Imdur -) 60 mg PO DAILY [facility] Last Admin: 07/01/19 11:06 Dose: 60 mg Losartan Potassium (Cozaar -) 25 mg PO DAILY [facility] Last Admin: 07/01/19 11:07 Dose: 25 mg Montelukast Sodium (Singulair -) 10 mg PO HS [facility] Last Admin: 06/30/19 22:33 Dose: 10 mg Nystatin (Mycostatin Ointment -) 1 applic TP BID [facility] Last Admin: 06/30/19 22:34 Dose: 1 applic Ondansetron HCl (Zofran Injection) 4 mg IVPUSH Q6H PRN PRN Reason: NAUSEA AND/OR VOMITING Pantoprazole Sodium (Protonix -) 20 mg PO DAILY [facility] Last Admin: 07/01/19 11:06 Dose: 20 mg Prednisone (Deltasone -) 10 mg PO DAILY [facility] Last Admin: 07/01/19 11:07 Dose: 10 mg Thiamine HCl (Vitamin B1 -) 100 mg PO DAILY [facility] Last Admin: 07/01/19 11:08 Dose: 100 mg Trazodone HCl (Desyrel -) 100 mg PO DAILY [facility] - Objective Vital Signs: Vital Signs Temperature 97.8 F 07/01/19 10:00 Pulse Rate 88 07/01/19 11:07 Respiratory Rate 22 H 07/01/19 10:00 Blood Pressure 121/68 07/01/19 10:00 O2 Sat by Pulse Oximetry (%) 97 06/30/19 21:00 Constitutional: Yes: Calm, Obese Eyes: Yes: WNL HENT: Yes: WNL Neck: Yes: WNL Cardiovascular: Yes: Pulse Irregular, S1, S2 Respiratory: Yes: Wheezes (FEW WHEEZES) Gastrointestinal: Yes: Normal Bowel Sounds, Soft Extremities: Yes: WNL Edema: Yes Labs: CBC, BMP 07/01/19 07:30 07/01/19 07:30 Problem List - Problems (1) Abnormal liver function tests Code(s): R94.5 - ABNORMAL RESULTS OF LIVER FUNCTION STUDIES (2) CHF (congestive heart failure) Code(s): I50.9 - HEART FAILURE, UNSPECIFIED Qualifiers: Heart failure type: unspecified Heart failure chronicity: acute on chronic Qualified Code(s): I50.9 - Heart failure, unspecified (3) COPD (chronic obstructive pulmonary disease) Code(s): J44.9 - CHRONIC OBSTRUCTIVE PULMONARY DISEASE, UNSPECIFIED Qualifiers: COPD type: unspecified COPD Qualified Code(s): J44.9 - Chronic obstructive pulmonary disease, unspecified (4) Hyponatremia Code(s): E87.1 - HYPO-OSMOLALITY AND HYPONATREMIA (5) Acute on chronic diastolic CHF (congestive heart failure) Code(s): I50.33 - ACUTE ON CHRONIC DIASTOLIC (CONGESTIVE) HEART FAILURE (6) Atrial fibrillation Code(s): I48.91 - UNSPECIFIED ATRIAL FIBRILLATION Qualifiers: Atrial fibrillation type: persistent Qualified Code(s): I48.1 - Persistent atrial fibrillation (7) CAD (coronary artery disease) Code(s): I25.10 - ATHSCL HEART DISEASE OF [place] CORONARY ARTERY W/O ANG PCTRS Qualifiers: Coronary Disease-Associated Artery/Lesion type: [place] artery [place] vs. transplanted heart: [place] heart Associated angina: without angina Qualified Code(s): I25.10 - Atherosclerotic heart disease of [place] coronary artery without angina pectoris (8) Diabetes Code(s): E11.9 - TYPE 2 DIABETES MELLITUS WITHOUT COMPLICATIONS Qualifiers: Diabetes mellitus type: type 2 (9) Elevated LFTs Code(s): R94.5 - ABNORMAL RESULTS OF LIVER FUNCTION STUDIES (10) Shortness of breath Code(s): R06.02 - SHORTNESS OF BREATH Assessment/Plan ASSESSMENT/PLAN: Hypervolemic hyponatremia in the setting of poor solute intake, chronic alcoholism, and CHF improved HFrEF Transaminitis 2/2 to alcohol abuse and congestive hepatopathy Severe lv dysfunction Hx of COPD Permanent Atrial fibrillation OSAS HTN HLD Lasix BID CPAP QHS O2 as needed Strict I & O Prednisone Singulair Daily weights Nyla TEJEDA
--- NOTE | 2019-07-01 13:44 | PN ---
Progress Note, Physician History of Present Illness: Pt seen and examined at bedside. He is awake and alert. He still complains of shortness of breath. - Current Medication List Current Medications: Active Medications Albuterol/Ipratropium (Duoneb -) 1 amp NEB Q6H PRN PRN Reason: SHORTNESS OF BREATH Apixaban (Eliquis -) 5 mg PO BID [facility] Last Admin: 07/01/19 11:07 Dose: 5 mg Digoxin (Lanoxin -) 0.125 mg PO DAILY [facility] Last Admin: 07/01/19 11:07 Dose: 0.125 mg Diphenhydramine HCl (Benadryl -) 25 mg PO Q6H PRN PRN Reason: FOR ITCHING Last Admin: 06/30/19 22:33 Dose: 25 mg Folic Acid (Folic Acid -) 1 mg PO DAILY [facility] Last Admin: 07/01/19 11:06 Dose: 1 mg Furosemide (Lasix Injection -) 40 mg IVPUSH BID@0600,1400 [facility] Isosorbide Mononitrate (Imdur -) 60 mg PO DAILY [facility] Last Admin: 07/01/19 11:06 Dose: 60 mg Losartan Potassium (Cozaar -) 25 mg PO DAILY [facility] Last Admin: 07/01/19 11:07 Dose: 25 mg Montelukast Sodium (Singulair -) 10 mg PO HS [facility] Last Admin: 06/30/19 22:33 Dose: 10 mg Nystatin (Mycostatin Ointment -) 1 applic TP BID [facility] Last Admin: 06/30/19 22:34 Dose: 1 applic Ondansetron HCl (Zofran Injection) 4 mg IVPUSH Q6H PRN PRN Reason: NAUSEA AND/OR VOMITING Pantoprazole Sodium (Protonix -) 20 mg PO DAILY [facility] Last Admin: 07/01/19 11:06 Dose: 20 mg Prednisone (Deltasone -) 10 mg PO DAILY [facility] Last Admin: 07/01/19 11:07 Dose: 10 mg Thiamine HCl (Vitamin B1 -) 100 mg PO DAILY [facility] Last Admin: 07/01/19 11:08 Dose: 100 mg Trazodone HCl (Desyrel -) 100 mg PO DAILY [facility] - Objective Vital Signs: Vital Signs Temperature 97.8 F 07/01/19 10:00 Pulse Rate 88 07/01/19 11:07 Respiratory Rate 22 H 07/01/19 10:00 Blood Pressure 121/68 07/01/19 10:00 O2 Sat by Pulse Oximetry (%) 97 06/30/19 21:00 Constitutional: Yes: Calm Eyes: Yes: Conjunctiva Clear HENT: Yes: Atraumatic Neck: Yes: Supple Cardiovascular: Yes: S1, S2 Respiratory: Yes: On Nasal O2 Genitourinary: Yes: WNL Musculoskeletal: Yes: WNL Edema: Yes Edema: LLE: 2+, RLE: 2+ Neurological: Yes: Oriented Psychiatric: Yes: Oriented Labs: CBC, BMP 07/01/19 07:30 07/01/19 07:30 Problem List - Problems (1) CHF (congestive heart failure) Code(s): I50.9 - HEART FAILURE, UNSPECIFIED Qualifiers: Heart failure type: unspecified Heart failure chronicity: acute on chronic Qualified Code(s): I50.9 - Heart failure, unspecified (2) Hyponatremia Code(s): E87.1 - HYPO-OSMOLALITY AND HYPONATREMIA Assessment/Plan Current Medications Generic Name Dose Route Start Last Admin Trade Name Freq PRN Reason Stop Dose Admin Albuterol/Ipratropium 1 amp 06/29/19 15:14 Duoneb - NEB Q6H PRN SHORTNESS OF BREATH Apixaban 5 mg 06/28/19 22:00 07/01/19 11:07 Eliquis - PO 5 mg BID [facility] Administration Digoxin 0.125 mg 06/29/19 10:00 07/01/19 11:07 Lanoxin - PO 0.125 mg DAILY [facility] Administration Diphenhydramine HCl 25 mg 06/29/19 15:15 06/30/19 22:33 Benadryl - PO 25 mg Q6H PRN Administration FOR ITCHING Folic Acid 1 mg 06/29/19 10:00 07/01/19 11:06 Folic Acid - PO 1 mg DAILY [facility] Administration Furosemide 40 mg 07/01/19 14:00 Lasix Injection - IVPUSH BID@0600,1400 [facility] Isosorbide Mononitrate 60 mg 06/29/19 10:00 07/01/19 11:06 Imdur - PO 60 mg DAILY [facility] Administration Losartan Potassium 25 mg 06/29/19 10:00 07/01/19 11:07 Cozaar - PO 25 mg DAILY [facility] Administration Montelukast Sodium 10 mg 06/28/19 22:00 06/30/19 22:33 Singulair - PO 10 mg HS [facility] Administration Nystatin 1 applic 06/28/19 23:45 06/30/19 22:34 Mycostatin Ointment - TP 1 applic BID [facility] Administration Ondansetron HCl 4 mg 06/28/19 14:28 Zofran Injection IVPUSH Q6H PRN NAUSEA AND/OR VOMITING Pantoprazole Sodium 20 mg 07/01/19 10:00 07/01/19 11:06 Protonix - PO 20 mg DAILY [facility] Administration Prednisone 10 mg 06/29/19 10:00 07/01/19 11:07 Deltasone - PO 10 mg DAILY [facility] Administration Thiamine HCl 100 mg 06/29/19 10:00 07/01/19 11:08 Vitamin B1 - PO 100 mg DAILY [facility] Administration Trazodone HCl 100 mg 06/29/19 10:00 Desyrel - PO DAILY [facility] Impression 1. CHF 2. hyponatremia - hypervolemic 3. fluid overload 4. asthma 5. a-fib 6. DM Plan - sodium stable - change lasix to 6 am and 2 pm - monitor volume status - repeat labs tomorrow - low sodium diet - hypervolemic hyponatremia from chf - monitor bp
[2019-07-01] MEDS: NYSTATIN 100000 UNIT/GM TOPICAL OINTMENT 15 GM TUBE TP SCH ×2 (13:59→22:44)
--- NOTE | 2019-07-01 15:19 | PN ---
Progress Note, Physician Chief Complaint: CHF Exacerbation History of Present Illness: Previous notes and events reviewed awake and alert NAD continue to have episodes of SOB complain of dry cough denies chest pain spoke with patient about diet and educated him on low Na diet and 1L fluid restriction - Current Medication List Current Medications: Active Medications Albuterol/Ipratropium (Duoneb -) 1 amp NEB Q6H PRN PRN Reason: SHORTNESS OF BREATH Apixaban (Eliquis -) 5 mg PO BID [facility] Last Admin: 07/01/19 11:07 Dose: 5 mg Digoxin (Lanoxin -) 0.125 mg PO DAILY [facility] Last Admin: 07/01/19 11:07 Dose: 0.125 mg Diphenhydramine HCl (Benadryl -) 25 mg PO Q6H PRN PRN Reason: FOR ITCHING Last Admin: 06/30/19 22:33 Dose: 25 mg Folic Acid (Folic Acid -) 1 mg PO DAILY [facility] Last Admin: 07/01/19 11:06 Dose: 1 mg Furosemide (Lasix Injection -) 40 mg IVPUSH BID@0600,1400 [facility] Isosorbide Mononitrate (Imdur -) 60 mg PO DAILY [facility] Last Admin: 07/01/19 11:06 Dose: 60 mg Losartan Potassium (Cozaar -) 25 mg PO DAILY [facility] Last Admin: 07/01/19 11:07 Dose: 25 mg Montelukast Sodium (Singulair -) 10 mg PO HS [facility] Last Admin: 06/30/19 22:33 Dose: 10 mg Nystatin (Mycostatin Ointment -) 1 applic TP BID [facility] Last Admin: 07/01/19 13:59 Dose: 1 applic Ondansetron HCl (Zofran Injection) 4 mg IVPUSH Q6H PRN PRN Reason: NAUSEA AND/OR VOMITING Pantoprazole Sodium (Protonix -) 20 mg PO DAILY [facility] Last Admin: 07/01/19 11:06 Dose: 20 mg Prednisone (Deltasone -) 10 mg PO DAILY [facility] Last Admin: 07/01/19 11:07 Dose: 10 mg Thiamine HCl (Vitamin B1 -) 100 mg PO DAILY [facility] Last Admin: 07/01/19 11:08 Dose: 100 mg Trazodone HCl (Desyrel -) 100 mg PO DAILY [facility] - Objective Vital Signs: Vital Signs Temperature 97.8 F 07/01/19 10:00 Pulse Rate 88 07/01/19 11:07 Respiratory Rate 22 H 07/01/19 10:00 Blood Pressure 121/68 07/01/19 10:00 O2 Sat by Pulse Oximetry (%) 97 06/30/19 21:00 Constitutional: Yes: No Distress, Calm, Obese Eyes: Yes: Conjunctiva Clear HENT: Yes: Atraumatic Cardiovascular: Yes: Regular Rate and Rhythm Respiratory: Yes: Regular, Diminished Gastrointestinal: Yes: Normal Bowel Sounds, Soft, Abdomen, Obese Musculoskeletal: Yes: Muscle Weakness Extremities: Yes: WNL Edema: No Neurological: Yes: Alert, Oriented Psychiatric: Yes: Alert, Oriented Labs: CBC, BMP 07/01/19 07:30 07/01/19 07:30 Problem List - Problems (1) Abnormal liver function tests Assessment/Plan: -GI on board -AST 56, Alk phos 274 -monitor LFTs daily -Abd US shows hepatomegaly with fatty infiltration vs hepatocellular disease -possible MRCP when cleared by cardiology Code(s): R94.5 - ABNORMAL RESULTS OF LIVER FUNCTION STUDIES (2) Hyponatremia Assessment/Plan: -Na 138 -monitor electrolyte daily -Renal on board - Code(s): E87.1 - HYPO-OSMOLALITY AND HYPONATREMIA (3) Atrial fibrillation Assessment/Plan: -Cardiology on board -Eliquis -Digoxin for rate control Code(s): I48.91 - UNSPECIFIED ATRIAL FIBRILLATION Qualifiers: Atrial fibrillation type: persistent Qualified Code(s): I48.1 - Persistent atrial fibrillation (4) CHF exacerbation Assessment/Plan: -Cardiology on board -Furosemide -Losartan -1L fluid restriction -strict I&Os -daily weights -dietary consult placed Code(s): I50.9 - HEART FAILURE, UNSPECIFIED Qualifiers: Heart failure type: unspecified Qualified Code(s): I50.9 - Heart failure, unspecified (5) Hypertension Assessment/Plan: -Losartan -low Na diet Code(s): I10 - ESSENTIAL (PRIMARY) HYPERTENSION Qualifiers: Hypertension type: essential hypertension Qualified Code(s): I10 - Essential (primary) hypertension (6) COPD (chronic obstructive pulmonary disease) Assessment/Plan: -Bronchodilators -Pulm on board -O2 via NC -keep SpO2 >90% -prednisone -Singulair Code(s): J44.9 - CHRONIC OBSTRUCTIVE PULMONARY DISEASE, UNSPECIFIED Qualifiers: COPD type: unspecified COPD Qualified Code(s): J44.9 - Chronic obstructive pulmonary disease, unspecified Assessment/Plan see problem list dvt ppx
--- NOTE | 2019-07-01 17:51 | PN ---
Progress Note, Physician Chief Complaint: The patient appears comfortable at the time of exam. He is lying flat without SOB at rest. He reports no chest pain, palpitation or dizziness. History of Present Illness: 63 year old male with a PMHx of HTN, DM, HLD, mild non-obstructive CAD from cardiac cath on 07/25/[address] [facility], systolic CHF secondary to non-ischemic cardiomyopathy with known low EF 30-35%, chronic afib (on Eliquis) and COPD admitted with SOB and orthopnea. Echocardiogram 06/29/19: EF 25-30%. Moderate MR. Mild TR - Current Medication List Current Medications: Active Medications Albuterol/Ipratropium (Duoneb -) 1 amp NEB Q6H PRN PRN Reason: SHORTNESS OF BREATH Apixaban (Eliquis -) 5 mg PO BID [facility] Last Admin: 07/01/19 11:07 Dose: 5 mg Digoxin (Lanoxin -) 0.125 mg PO DAILY [facility] Last Admin: 07/01/19 11:07 Dose: 0.125 mg Diphenhydramine HCl (Benadryl -) 25 mg PO Q6H PRN PRN Reason: FOR ITCHING Last Admin: 06/30/19 22:33 Dose: 25 mg Folic Acid (Folic Acid -) 1 mg PO DAILY [facility] Last Admin: 07/01/19 11:06 Dose: 1 mg Furosemide (Lasix Injection -) 40 mg IVPUSH BID@0600,1400 [facility] Last Admin: 07/01/19 17:01 Dose: 40 mg Isosorbide Mononitrate (Imdur -) 60 mg PO DAILY [facility] Last Admin: 07/01/19 11:06 Dose: 60 mg Losartan Potassium (Cozaar -) 25 mg PO DAILY [facility] Last Admin: 07/01/19 11:07 Dose: 25 mg Montelukast Sodium (Singulair -) 10 mg PO HS [facility] Last Admin: 06/30/19 22:33 Dose: 10 mg Nystatin (Mycostatin Ointment -) 1 applic TP BID [facility] Last Admin: 07/01/19 13:59 Dose: 1 applic Ondansetron HCl (Zofran Injection) 4 mg IVPUSH Q6H PRN PRN Reason: NAUSEA AND/OR VOMITING Pantoprazole Sodium (Protonix -) 20 mg PO DAILY [facility] Last Admin: 07/01/19 11:06 Dose: 20 mg Prednisone (Deltasone -) 10 mg PO DAILY [facility] Last Admin: 07/01/19 11:07 Dose: 10 mg Thiamine HCl (Vitamin B1 -) 100 mg PO DAILY [facility] Last Admin: 07/01/19 11:08 Dose: 100 mg Trazodone HCl (Desyrel -) 100 mg PO DAILY [facility] - Objective Vital Signs: Vital Signs Temperature 97.5 F L 07/01/19 14:00 Pulse Rate 85 07/01/19 14:00 Respiratory Rate 20 07/01/19 14:00 Blood Pressure 134/67 07/01/19 14:00 O2 Sat by Pulse Oximetry (%) 97 06/30/19 21:00 General: Well developed. Obese. No acute distress. Head: Normocephalic. Atraumatic, Eyes: PERRLA, EOMI. Sclerae anicteric. Conjunctivae clear. Neck: Supple. No JVD. No bruits. Heart: Normal S1, S2: Irregular rhythm and rate. No murmur. No gallop or rub. Lungs: Symmetrical air entry. Bibasilar crackles. No wheezing or rhonchi. Abdomen: Soft. Bowel sound positive. Non tender. No masses. Extremities: Trace edema. No clubbing or cyanosis. PD 2+, equal bilaterally. Labs: CBC, BMP 07/01/19 07:30 07/01/19 07:30 Assessment/Plan 63 year old male with a PMHx of HTN, DM, HLD, mild non-obstructive CAD from cardiac cath on 07/25/[address] [facility], systolic CHF secondary to non-ischemic cardiomyopathy with known low EF 30-35% 08/2018, chronic afib (on Eliquis) and COPD admitted with SOB and orthopnea. Echocardiogram 06/29/19: EF 25-30%. Moderate MR. Mild TR 1) Acute on chronic systolic CHF: Improved with IV Lasix. May change IV Lasix to PO 40 mg BID. Add Metoprolol tartrate 12.5 mg BID, titrate up as outpatient. Fluid restriction 1L/24hr. Low salt diet reiterated Continue Losartan 25 mg PO daily 2) Persistent afib-Hr adequately controlled currently. Add Metoprolol tartrate 12.5 mg BID, titrate up as outpatient. Continue Digoxin 125 mcg po daily Continue AC with Eliquis 5 mg PO BID. The patient needs close out-patient follow up. Please do not hesitate to call us for reconsult at any time if any further questions or additional issue arises regarding this patient.
[2019-07-01] MEDS: MONTELUKAST NA 10 MG TABLET PO SCH (22:44)
[2019-07-02] MEDS: diphenhydrAMINE HCL 25 MG CAPSULE (FP) PO PRN ×2 (01:28→22:38)
[2019-07-02] MEDS: FUROSEMIDE 40 MG/4 ML INJECTABLE VIAL IVPUSH SCH ×2 (06:58→14:43)
[2019-07-02] MEDS: DIGOXIN 0.125 MG TABLET (FP) PO SCH (09:48)
[2019-07-02] MEDS: APIXABAN 5 MG TABLET PO SCH ×2 (09:48→22:36)
[2019-07-02] MEDS: LOSARTAN POTASSIUM 25 MG TABLET PO SCH (09:48)
[2019-07-02] MEDS: PANTOPRAZOLE 20 MG TABLET (FP) PO SCH (09:48)
[2019-07-02] MEDS: ISOSORBIDE MONONITRATE 60 MG TAB.SR.24H (FP) PO SCH (09:48)
[2019-07-02] MEDS: FOLIC ACID 1 MG TABLET (FP) PO SCH (09:48)
[2019-07-02] MEDS: traZODone HCL 100 MG TABLET (FP) PO SCH (09:48)
[2019-07-02] MEDS: predniSONE 10 MG TABLET (UD) PO SCH (09:48)
[2019-07-02 09:49] LABS: INR 1.34 (0.83-1.09); PROTHROMBIN TIME (PATIENT) 15.8 SEC (9.7-13.0)
[2019-07-02] MEDS: NYSTATIN 100000 UNIT/GM TOPICAL OINTMENT 15 GM TUBE TP SCH ×2 (09:49→22:36)
[2019-07-02] MEDS: THIAMINE HCL 100 MG TABLET (FP) PO SCH (09:49)
[2019-07-02 09:50] LABS: HEMATOCRIT 37.5 % (35.4-49); HEMOGLOBIN 12.4 GM/dL (11.7-16.9); MCH 30.7 pg (25.7-33.7); MEAN PLT VOLUME 8.9 fl (7.5-11.1); PLATELET COUNT 174 K/MM3 (134-434); RBC 4.03 M/mm3 (4.00-5.60); RDW 19.7 % (11.9-15.9); WHITE BLOOD COUNT 7.8 K/mm3 (4.0-10.0)
[2019-07-02 10:08] LABS: ALBUMIN 2.8 g/dl (3.4-5.0); BILIRUBIN,TOTAL 1.2 mg/dL (0.2-1); BLOOD UREA NITROGEN 25.9 mg/dL (7-18); CALCIUM 7.8 mg/dL (8.5-10.1); CREATININE 1.2 mg/dL (0.55-1.3); POTASSIUM 3.8 mmol/L (3.5-5.1); TOT PROT 7.4 g/dl (6.4-8.2)
--- NOTE | 2019-07-02 10:48 | PN ---
Progress Note, Physician Chief Complaint: CHF Exacerbation History of Present Illness: Previous notes and events reviewed awake and alert NAD states SOB is improving complain of dry cough denies chest pain walking with PT today complain of mid abdominal pain - Current Medication List Current Medications: Active Medications Albuterol/Ipratropium (Duoneb -) 1 amp NEB Q6H PRN PRN Reason: SHORTNESS OF BREATH Apixaban (Eliquis -) 5 mg PO BID [facility] Last Admin: 07/02/19 09:48 Dose: 5 mg Digoxin (Lanoxin -) 0.125 mg PO DAILY [facility] Last Admin: 07/02/19 09:48 Dose: 0.125 mg Diphenhydramine HCl (Benadryl -) 25 mg PO Q6H PRN PRN Reason: FOR ITCHING Last Admin: 07/02/19 01:28 Dose: 25 mg Folic Acid (Folic Acid -) 1 mg PO DAILY [facility] Last Admin: 07/02/19 09:48 Dose: 1 mg Furosemide (Lasix Injection -) 40 mg IVPUSH BID@0600,1400 [facility] Last Admin: 07/02/19 06:58 Dose: 40 mg Isosorbide Mononitrate (Imdur -) 60 mg PO DAILY [facility] Last Admin: 07/02/19 09:48 Dose: 60 mg Losartan Potassium (Cozaar -) 25 mg PO DAILY [facility] Last Admin: 07/02/19 09:48 Dose: 25 mg Montelukast Sodium (Singulair -) 10 mg PO HS [facility] Last Admin: 07/01/19 22:44 Dose: 10 mg Nystatin (Mycostatin Ointment -) 1 applic TP BID [facility] Last Admin: 07/02/19 09:49 Dose: 1 applic Ondansetron HCl (Zofran Injection) 4 mg IVPUSH Q6H PRN PRN Reason: NAUSEA AND/OR VOMITING Pantoprazole Sodium (Protonix -) 20 mg PO DAILY [facility] Last Admin: 07/02/19 09:48 Dose: 20 mg Prednisone (Deltasone -) 10 mg PO DAILY [facility] Last Admin: 07/02/19 09:48 Dose: 10 mg Thiamine HCl (Vitamin B1 -) 100 mg PO DAILY [facility] Last Admin: 07/02/19 09:49 Dose: 100 mg Trazodone HCl (Desyrel -) 100 mg PO DAILY [facility] Last Admin: 07/02/19 09:48 Dose: 100 mg - Objective Vital Signs: Vital Signs Temperature 97.9 F 07/02/19 09:07 Pulse Rate 94 H 07/02/19 09:48 Respiratory Rate 20 07/02/19 09:07 Blood Pressure 124/80 07/02/19 09:07 O2 Sat by Pulse Oximetry (%) 96 07/01/19 21:00 Constitutional: Yes: No Distress, Calm Eyes: Yes: Conjunctiva Clear HENT: Yes: Atraumatic Cardiovascular: Yes: Pulse Irregular Respiratory: Yes: Regular, Diminished Gastrointestinal: Yes: Normal Bowel Sounds, Soft, Abdomen, Obese, Tenderness ( lower abdomen) Musculoskeletal: Yes: Muscle Weakness Extremities: Yes: WNL Edema: Yes Edema: LLE: 1+, RLE: 1+ Neurological: Yes: Alert, Oriented Psychiatric: Yes: Alert, Oriented Labs: CBC, BMP 07/02/19 08:20 07/02/19 08:20 INR, PTT INR 1.34 (0.83-1.09) H 07/02/19 08:20 Problem List - Problems (1) Abnormal liver function tests Assessment/Plan: -GI on board -AST 60, ALT 64, Alk phos 284 -monitor LFTs daily -Abd US shows hepatomegaly with fatty infiltration vs hepatocellular disease -possible MRCP when cleared by cardiology Code(s): R94.5 - ABNORMAL RESULTS OF LIVER FUNCTION STUDIES (2) Hyponatremia Assessment/Plan: -Na 138 -monitor electrolyte daily -Renal on board - Code(s): E87.1 - HYPO-OSMOLALITY AND HYPONATREMIA (3) Atrial fibrillation Assessment/Plan: -Cardiology on board -Eliquis -Digoxin for rate control Code(s): I48.91 - UNSPECIFIED ATRIAL FIBRILLATION Qualifiers: Atrial fibrillation type: persistent Qualified Code(s): I48.1 - Persistent atrial fibrillation (4) CHF exacerbation Assessment/Plan: -Cardiology on board -Furosemide -Losartan -1L fluid restriction -strict I&Os -daily weights -dietary consult placed Code(s): I50.9 - HEART FAILURE, UNSPECIFIED Qualifiers: Heart failure type: unspecified Qualified Code(s): I50.9 - Heart failure, unspecified (5) Hypertension Assessment/Plan: -Losartan -low Na diet Code(s): I10 - ESSENTIAL (PRIMARY) HYPERTENSION Qualifiers: Hypertension type: essential hypertension Qualified Code(s): I10 - Essential (primary) hypertension (6) COPD (chronic obstructive pulmonary disease) Assessment/Plan: -Bronchodilators -Pulm on board -O2 via NC -keep SpO2 >90% -prednisone -Singulair Code(s): J44.9 - CHRONIC OBSTRUCTIVE PULMONARY DISEASE, UNSPECIFIED Qualifiers: COPD type: unspecified COPD Qualified Code(s): J44.9 - Chronic obstructive pulmonary disease, unspecified Assessment/Plan see problem list dvt ppx
--- NOTE | 2019-07-02 15:36 | PN ---
Progress Note, Physician History of Present Illness: Pt seen and examined at bedside. He is awake and alert. He feels that his shortness of breath is improving. - Current Medication List Current Medications: Active Medications Albuterol/Ipratropium (Duoneb -) 1 amp NEB Q6H PRN PRN Reason: SHORTNESS OF BREATH Apixaban (Eliquis -) 5 mg PO BID [facility] Last Admin: 07/02/19 09:48 Dose: 5 mg Digoxin (Lanoxin -) 0.125 mg PO DAILY [facility] Last Admin: 07/02/19 09:48 Dose: 0.125 mg Diphenhydramine HCl (Benadryl -) 25 mg PO Q6H PRN PRN Reason: FOR ITCHING Last Admin: 07/02/19 01:28 Dose: 25 mg Folic Acid (Folic Acid -) 1 mg PO DAILY [facility] Last Admin: 07/02/19 09:48 Dose: 1 mg Furosemide (Lasix Injection -) 40 mg IVPUSH BID@0600,1400 [facility] Last Admin: 07/02/19 14:43 Dose: 40 mg Isosorbide Mononitrate (Imdur -) 60 mg PO DAILY [facility] Last Admin: 07/02/19 09:48 Dose: 60 mg Losartan Potassium (Cozaar -) 25 mg PO DAILY [facility] Last Admin: 07/02/19 09:48 Dose: 25 mg Montelukast Sodium (Singulair -) 10 mg PO HS [facility] Last Admin: 07/01/19 22:44 Dose: 10 mg Nystatin (Mycostatin Ointment -) 1 applic TP BID [facility] Last Admin: 07/02/19 09:49 Dose: 1 applic Ondansetron HCl (Zofran Injection) 4 mg IVPUSH Q6H PRN PRN Reason: NAUSEA AND/OR VOMITING Pantoprazole Sodium (Protonix -) 20 mg PO DAILY [facility] Last Admin: 07/02/19 09:48 Dose: 20 mg Prednisone (Deltasone -) 10 mg PO DAILY [facility] Last Admin: 07/02/19 09:48 Dose: 10 mg Thiamine HCl (Vitamin B1 -) 100 mg PO DAILY [facility] Last Admin: 07/02/19 09:49 Dose: 100 mg Trazodone HCl (Desyrel -) 100 mg PO DAILY [facility] Last Admin: 07/02/19 09:48 Dose: 100 mg - Objective Vital Signs: Vital Signs Temperature 97.9 F 07/02/19 09:07 Pulse Rate 94 H 07/02/19 09:48 Respiratory Rate 20 07/02/19 09:07 Blood Pressure 124/80 07/02/19 09:07 O2 Sat by Pulse Oximetry (%) 95 07/02/19 09:00 Constitutional: Yes: Calm Eyes: Yes: Conjunctiva Clear HENT: Yes: Atraumatic Neck: Yes: Supple Cardiovascular: Yes: S1, S2 Respiratory: Yes: On Nasal O2 Gastrointestinal: Yes: Soft Genitourinary: Yes: WNL Musculoskeletal: Yes: WNL Edema: Yes Edema: LLE: 1+, RLE: 1+ Neurological: Yes: Oriented Psychiatric: Yes: Oriented Labs: CBC, BMP 07/02/19 08:20 07/02/19 08:20 INR, PTT INR 1.34 (0.83-1.09) H 07/02/19 08:20 Problem List - Problems (1) CHF (congestive heart failure) Code(s): I50.9 - HEART FAILURE, UNSPECIFIED Qualifiers: Heart failure type: unspecified Heart failure chronicity: acute on chronic Qualified Code(s): I50.9 - Heart failure, unspecified (2) Hyponatremia Code(s): E87.1 - HYPO-OSMOLALITY AND HYPONATREMIA Assessment/Plan Current Medications Generic Name Dose Route Start Last Admin Trade Name Freq PRN Reason Stop Dose Admin Albuterol/Ipratropium 1 amp 06/29/19 15:14 Duoneb - NEB Q6H PRN SHORTNESS OF BREATH Apixaban 5 mg 06/28/19 22:00 07/02/19 09:48 Eliquis - PO 5 mg BID [facility] Administration Digoxin 0.125 mg 06/29/19 10:00 07/02/19 09:48 Lanoxin - PO 0.125 mg DAILY [facility] Administration Diphenhydramine HCl 25 mg 06/29/19 15:15 07/02/19 01:28 Benadryl - PO 25 mg Q6H PRN Administration FOR ITCHING Folic Acid 1 mg 06/29/19 10:00 07/02/19 09:48 Folic Acid - PO 1 mg DAILY [facility] Administration Furosemide 40 mg 07/01/19 14:00 07/02/19 14:43 Lasix Injection - IVPUSH 40 mg BID@0600,1400 [facility] Administration Isosorbide Mononitrate 60 mg 06/29/19 10:00 07/02/19 09:48 Imdur - PO 60 mg DAILY [facility] Administration Losartan Potassium 25 mg 06/29/19 10:00 07/02/19 09:48 Cozaar - PO 25 mg DAILY [facility] Administration Montelukast Sodium 10 mg 06/28/19 22:00 07/01/19 22:44 Singulair - PO 10 mg HS [facility] Administration Nystatin 1 applic 06/28/19 23:45 07/02/19 09:49 Mycostatin Ointment - TP 1 applic BID [facility] Administration Ondansetron HCl 4 mg 06/28/19 14:28 Zofran Injection IVPUSH Q6H PRN NAUSEA AND/OR VOMITING Pantoprazole Sodium 20 mg 07/01/19 10:00 07/02/19 09:48 Protonix - PO 20 mg DAILY [facility] Administration Prednisone 10 mg 06/29/19 10:00 07/02/19 09:48 Deltasone - PO 10 mg DAILY [facility] Administration Thiamine HCl 100 mg 06/29/19 10:00 07/02/19 09:49 Vitamin B1 - PO 100 mg DAILY [facility] Administration Trazodone HCl 100 mg 06/29/19 10:00 07/02/19 09:48 Desyrel - PO 100 mg DAILY [facility] Administration Impression 1. CHF 2. hyponatremia - hypervolemic 3. fluid overload 4. asthma 5. a-fib 6. DM Plan - volume status is improving - switch to PO lasix in next 24 hours - monitor volume status - cardiology follow up - sodium improved - low sodium diet - hypervolemic hyponatremia from chf - monitor bp
--- NOTE | 2019-07-02 17:39 | PN ---
Progress Note (short form) - Note Progress Note: PULMONARY States breathing is improving. No cough or wheezing. Leg swelling improving. Vital Signs Period Temp Pulse Resp BP Sys/Uribe Pulse Ox Last 24 Hr 97.4 F-97.9 F 87-109 20-20 114-135/70-91 95-96 Gen: NAD at rest Heart: RRR Lung: scattered basilar rales Abd: soft, nontender Ext: trace edema CBC, BMP 07/02/19 08:20 07/02/19 08:20 Active Medications Albuterol/Ipratropium (Duoneb -) 1 amp NEB Q6H PRN PRN Reason: SHORTNESS OF BREATH Apixaban (Eliquis -) 5 mg PO BID [facility] Last Admin: 07/02/19 09:48 Dose: 5 mg Digoxin (Lanoxin -) 0.125 mg PO DAILY [facility] Last Admin: 07/02/19 09:48 Dose: 0.125 mg Diphenhydramine HCl (Benadryl -) 25 mg PO Q6H PRN PRN Reason: FOR ITCHING Last Admin: 07/02/19 01:28 Dose: 25 mg Folic Acid (Folic Acid -) 1 mg PO DAILY [facility] Last Admin: 07/02/19 09:48 Dose: 1 mg Furosemide (Lasix -) 60 mg PO BID@0600,1400 [facility] Isosorbide Mononitrate (Imdur -) 60 mg PO DAILY [facility] Last Admin: 07/02/19 09:48 Dose: 60 mg Losartan Potassium (Cozaar -) 25 mg PO DAILY [facility] Last Admin: 07/02/19 09:48 Dose: 25 mg Montelukast Sodium (Singulair -) 10 mg PO HS [facility] Last Admin: 07/01/19 22:44 Dose: 10 mg Nystatin (Mycostatin Ointment -) 1 applic TP BID [facility] Last Admin: 07/02/19 09:49 Dose: 1 applic Ondansetron HCl (Zofran Injection) 4 mg IVPUSH Q6H PRN PRN Reason: NAUSEA AND/OR VOMITING Pantoprazole Sodium (Protonix -) 20 mg PO DAILY [facility] Last Admin: 07/02/19 09:48 Dose: 20 mg Prednisone (Deltasone -) 10 mg PO DAILY [facility] Last Admin: 07/02/19 09:48 Dose: 10 mg Thiamine HCl (Vitamin B1 -) 100 mg PO DAILY [facility] Last Admin: 07/02/19 09:49 Dose: 100 mg Trazodone HCl (Desyrel -) 100 mg PO DAILY [facility] Last Admin: 07/02/19 09:48 Dose: 100 mg A/P Hyponatremia improved Acute on Chronic Systolic Heart Failure Elevated LFTs COPD Atrial Fibrillation JUAN CARLOS HTN Hyperlipdidemia - continue lasix - monitor urine output, creatinine - inhaled bronchodilators - rate controlled - continue anticoagulation - CPAP at night
[2019-07-02] MEDS: MONTELUKAST NA 10 MG TABLET PO SCH (22:36)
[2019-07-03] MEDS: FUROSEMIDE 20 MG TABLET (FP) PO SCH ×2 (06:17→14:33)
[2019-07-03 08:43] LABS: HEMATOCRIT 34.8 % (35.4-49); HEMOGLOBIN 11.4 GM/dL (11.7-16.9); MCH 30.3 pg (25.7-33.7); MCHC 32.9 g/dl (32.0-35.9); MEAN CELL VOLUME 92.3 fl (80-96); MEAN PLT VOLUME 8.8 fl (7.5-11.1); PLATELET COUNT 137 K/MM3 (134-434); RBC 3.76 M/mm3 (4.00-5.60); WHITE BLOOD COUNT 6.4 K/mm3 (4.0-10.0)
[2019-07-03 09:16] LABS: ALBUMIN 2.5 g/dl (3.4-5.0); BLOOD UREA NITROGEN 31.2 mg/dL (7-18); CALCIUM 7.6 mg/dL (8.5-10.1); POTASSIUM 3.5 mmol/L (3.5-5.1); TOT PROT 6.6 g/dl (6.4-8.2)
[2019-07-03] MEDS: ISOSORBIDE MONONITRATE 60 MG TAB.SR.24H (FP) PO SCH (10:28)
[2019-07-03] MEDS: DIGOXIN 0.125 MG TABLET (FP) PO SCH (10:29)
[2019-07-03] MEDS: LOSARTAN POTASSIUM 25 MG TABLET PO SCH (10:29)
[2019-07-03] MEDS: APIXABAN 5 MG TABLET PO SCH ×2 (10:29→22:28)
[2019-07-03] MEDS: PANTOPRAZOLE 20 MG TABLET (FP) PO SCH (10:29)
[2019-07-03] MEDS: predniSONE 10 MG TABLET (UD) PO SCH (10:29)
[2019-07-03] MEDS: FOLIC ACID 1 MG TABLET (FP) PO SCH (10:29)
[2019-07-03] MEDS: traZODone HCL 100 MG TABLET (FP) PO SCH (10:29)
[2019-07-03] MEDS: THIAMINE HCL 100 MG TABLET (FP) PO SCH (10:30)
[2019-07-03] MEDS: NYSTATIN 100000 UNIT/GM TOPICAL OINTMENT 15 GM TUBE TP SCH ×2 (10:30→22:28)
--- NOTE | 2019-07-03 13:48 | PN ---
Progress Note, Physician History of Present Illness: pulmonary alert,breathing better,c/o abd discomfort - Current Medication List Current Medications: Active Medications Albuterol/Ipratropium (Duoneb -) 1 amp NEB Q6H PRN PRN Reason: SHORTNESS OF BREATH Apixaban (Eliquis -) 5 mg PO BID [facility] Last Admin: 07/03/19 10:29 Dose: 5 mg Digoxin (Lanoxin -) 0.125 mg PO DAILY [facility] Last Admin: 07/03/19 10:29 Dose: 0.125 mg Diphenhydramine HCl (Benadryl -) 25 mg PO Q6H PRN PRN Reason: FOR ITCHING Last Admin: 07/02/19 22:38 Dose: 25 mg Folic Acid (Folic Acid -) 1 mg PO DAILY [facility] Last Admin: 07/03/19 10:29 Dose: 1 mg Furosemide (Lasix -) 60 mg PO BID@0600,1400 [facility] Last Admin: 07/03/19 06:17 Dose: 60 mg Isosorbide Mononitrate (Imdur -) 60 mg PO DAILY [facility] Last Admin: 07/03/19 10:28 Dose: 60 mg Losartan Potassium (Cozaar -) 25 mg PO DAILY [facility] Last Admin: 07/03/19 10:29 Dose: 25 mg Montelukast Sodium (Singulair -) 10 mg PO HS [facility] Last Admin: 07/02/19 22:36 Dose: 10 mg Nystatin (Mycostatin Ointment -) 1 applic TP BID [facility] Last Admin: 07/03/19 10:30 Dose: 1 applic Ondansetron HCl (Zofran Injection) 4 mg IVPUSH Q6H PRN PRN Reason: NAUSEA AND/OR VOMITING Pantoprazole Sodium (Protonix -) 20 mg PO DAILY [facility] Last Admin: 07/03/19 10:29 Dose: 20 mg Polyethylene Glycol (Miralax (For Daily Use) -) 17 gm PO DAILY [facility] Prednisone (Deltasone -) 10 mg PO DAILY [facility] Last Admin: 07/03/19 10:29 Dose: 10 mg Thiamine HCl (Vitamin B1 -) 100 mg PO DAILY [facility] Last Admin: 07/03/19 10:30 Dose: 100 mg Trazodone HCl (Desyrel -) 100 mg PO DAILY [facility] Last Admin: 07/03/19 10:29 Dose: 100 mg - Objective Vital Signs: Vital Signs Temperature 97.5 F L 07/03/19 05:33 Pulse Rate 89 07/03/19 10:29 Respiratory Rate 20 07/03/19 05:33 Blood Pressure 142/76 07/03/19 05:33 O2 Sat by Pulse Oximetry (%) 96 07/02/19 21:00 Constitutional: Yes: Calm, Obese Eyes: Yes: WNL HENT: Yes: WNL Neck: Yes: WNL Cardiovascular: Yes: Pulse Irregular, S1, S2 Respiratory: Yes: Diminished Gastrointestinal: Yes: Soft, Abdomen, Obese, Tenderness (LUQ) Extremities: Yes: WNL Edema: Yes Labs: CBC, BMP 07/03/19 08:05 07/03/19 08:05 INR, PTT INR 1.34 (0.83-1.09) H 07/02/19 08:20 Problem List - Problems (1) Abnormal liver function tests Code(s): R94.5 - ABNORMAL RESULTS OF LIVER FUNCTION STUDIES (2) CHF (congestive heart failure) Code(s): I50.9 - HEART FAILURE, UNSPECIFIED Qualifiers: Heart failure type: unspecified Heart failure chronicity: acute on chronic Qualified Code(s): I50.9 - Heart failure, unspecified (3) COPD (chronic obstructive pulmonary disease) Code(s): J44.9 - CHRONIC OBSTRUCTIVE PULMONARY DISEASE, UNSPECIFIED Qualifiers: COPD type: unspecified COPD Qualified Code(s): J44.9 - Chronic obstructive pulmonary disease, unspecified (4) Hyponatremia Code(s): E87.1 - HYPO-OSMOLALITY AND HYPONATREMIA (5) Acute on chronic diastolic CHF (congestive heart failure) Code(s): I50.33 - ACUTE ON CHRONIC DIASTOLIC (CONGESTIVE) HEART FAILURE (6) Atrial fibrillation Code(s): I48.91 - UNSPECIFIED ATRIAL FIBRILLATION Qualifiers: Atrial fibrillation type: persistent Qualified Code(s): I48.1 - Persistent atrial fibrillation (7) CAD (coronary artery disease) Code(s): I25.10 - ATHSCL HEART DISEASE OF [place] CORONARY ARTERY W/O ANG PCTRS Qualifiers: Coronary Disease-Associated Artery/Lesion type: [place] artery [place] vs. transplanted heart: [place] heart Associated angina: without angina Qualified Code(s): I25.10 - Atherosclerotic heart disease of [place] coronary artery without angina pectoris (8) Diabetes Code(s): E11.9 - TYPE 2 DIABETES MELLITUS WITHOUT COMPLICATIONS Qualifiers: Diabetes mellitus type: type 2 (9) Elevated LFTs Code(s): R94.5 - ABNORMAL RESULTS OF LIVER FUNCTION STUDIES (10) Shortness of breath Code(s): R06.02 - SHORTNESS OF BREATH Assessment/Plan ASSESSMENT/PLAN: Hypervolemic hyponatremia in the setting of poor solute intake, chronic alcoholism, and CHF improved HFrEF Transaminitis 2/2 to alcohol abuse and congestive hepatopathy Severe lv dysfunction Hx of COPD Permanent Atrial fibrillation OSAS HTN HLD Abdominal pain Lasix BID CPAP QHS O2 as needed Strict I & O Prednisone Singulair Daily weights Nyla TEJEDA
--- NOTE | 2019-07-03 16:08 | PN ---
Progress Note, Physician Chief Complaint: CHF Exacerbation History of Present Illness: Previous notes and events reviewed awake and alert NAD states SOB is improving complain of dry cough denies chest pain walking with PT today complain of llq pain - Current Medication List Current Medications: Active Medications Albuterol/Ipratropium (Duoneb -) 1 amp NEB Q6H PRN PRN Reason: SHORTNESS OF BREATH Apixaban (Eliquis -) 5 mg PO BID [facility] Last Admin: 07/03/19 10:29 Dose: 5 mg Digoxin (Lanoxin -) 0.125 mg PO DAILY [facility] Last Admin: 07/03/19 10:29 Dose: 0.125 mg Diphenhydramine HCl (Benadryl -) 25 mg PO Q6H PRN PRN Reason: FOR ITCHING Last Admin: 07/02/19 22:38 Dose: 25 mg Folic Acid (Folic Acid -) 1 mg PO DAILY [facility] Last Admin: 07/03/19 10:29 Dose: 1 mg Furosemide (Lasix -) 60 mg PO BID@0600,1400 [facility] Last Admin: 07/03/19 14:33 Dose: 60 mg Isosorbide Mononitrate (Imdur -) 60 mg PO DAILY [facility] Last Admin: 07/03/19 10:28 Dose: 60 mg Losartan Potassium (Cozaar -) 25 mg PO DAILY [facility] Last Admin: 07/03/19 10:29 Dose: 25 mg Montelukast Sodium (Singulair -) 10 mg PO HS [facility] Last Admin: 07/02/19 22:36 Dose: 10 mg Nystatin (Mycostatin Ointment -) 1 applic TP BID [facility] Last Admin: 07/03/19 10:30 Dose: 1 applic Ondansetron HCl (Zofran Injection) 4 mg IVPUSH Q6H PRN PRN Reason: NAUSEA AND/OR VOMITING Pantoprazole Sodium (Protonix -) 20 mg PO DAILY [facility] Last Admin: 07/03/19 10:29 Dose: 20 mg Polyethylene Glycol (Miralax (For Daily Use) -) 17 gm PO DAILY [facility] Prednisone (Deltasone -) 10 mg PO DAILY [facility] Last Admin: 07/03/19 10:29 Dose: 10 mg Thiamine HCl (Vitamin B1 -) 100 mg PO DAILY [facility] Last Admin: 07/03/19 10:30 Dose: 100 mg Trazodone HCl (Desyrel -) 100 mg PO DAILY [facility] Last Admin: 07/03/19 10:29 Dose: 100 mg - Objective Vital Signs: Vital Signs Temperature 97.5 F L 07/03/19 05:33 Pulse Rate 96 H 07/03/19 14:36 Respiratory Rate 20 07/03/19 14:36 Blood Pressure 113/73 07/03/19 14:36 O2 Sat by Pulse Oximetry (%) 96 07/02/19 21:00 Constitutional: Yes: No Distress, Calm, Obese Eyes: Yes: Conjunctiva Clear HENT: Yes: Atraumatic Cardiovascular: Yes: Regular Rate and Rhythm Respiratory: Yes: Regular, Diminished Gastrointestinal: Yes: Normal Bowel Sounds, Soft, Abdomen, Obese, Tenderness ( llq) Musculoskeletal: Yes: Muscle Weakness Extremities: Yes: WNL Edema: No Neurological: Yes: Alert, Oriented Psychiatric: Yes: Alert, Oriented Labs: CBC, BMP 07/03/19 08:05 07/03/19 08:05 INR, PTT INR 1.34 (0.83-1.09) H 07/02/19 08:20 Problem List - Problems (1) Abnormal liver function tests Assessment/Plan: -GI on board -AST 45, ALT 51, Alk phos 241 -monitor LFTs daily -Abd US shows hepatomegaly with fatty infiltration vs hepatocellular disease -possible MRCP when cleared by cardiology Code(s): R94.5 - ABNORMAL RESULTS OF LIVER FUNCTION STUDIES (2) Hyponatremia Assessment/Plan: -Na 138 -monitor electrolyte daily -Renal on board - Code(s): E87.1 - HYPO-OSMOLALITY AND HYPONATREMIA (3) Atrial fibrillation Assessment/Plan: -Cardiology on board -Eliquis -Digoxin for rate control Code(s): I48.91 - UNSPECIFIED ATRIAL FIBRILLATION Qualifiers: Atrial fibrillation type: persistent Qualified Code(s): I48.1 - Persistent atrial fibrillation (4) CHF exacerbation Assessment/Plan: -Cardiology on board -Furosemide -Losartan -1L fluid restriction -strict I&Os -daily weights -dietary consult placed Code(s): I50.9 - HEART FAILURE, UNSPECIFIED Qualifiers: Heart failure type: unspecified Qualified Code(s): I50.9 - Heart failure, unspecified (5) Hypertension Assessment/Plan: -Losartan -low Na diet Code(s): I10 - ESSENTIAL (PRIMARY) HYPERTENSION Qualifiers: Hypertension type: essential hypertension Qualified Code(s): I10 - Essential (primary) hypertension (6) COPD (chronic obstructive pulmonary disease) Assessment/Plan: -Bronchodilators -Pulm on board -O2 via NC -keep SpO2 >90% -prednisone -Singulair Code(s): J44.9 - CHRONIC OBSTRUCTIVE PULMONARY DISEASE, UNSPECIFIED Qualifiers: COPD type: unspecified COPD Qualified Code(s): J44.9 - Chronic obstructive pulmonary disease, unspecified (7) Abdominal pain Code(s): R10.9 - UNSPECIFIED ABDOMINAL PAIN Assessment/Plan see problem list dvt ppx begin d/c planning
--- NOTE | 2019-07-03 16:44 | PN ---
Progress Note, Physician History of Present Illness: Pt seen and examined at bedside. He is awake and alert. He feels that his breathing is slowly improving. - Current Medication List Current Medications: Active Medications Albuterol/Ipratropium (Duoneb -) 1 amp NEB Q6H PRN PRN Reason: SHORTNESS OF BREATH Apixaban (Eliquis -) 5 mg PO BID [facility] Last Admin: 07/03/19 10:29 Dose: 5 mg Digoxin (Lanoxin -) 0.125 mg PO DAILY [facility] Last Admin: 07/03/19 10:29 Dose: 0.125 mg Diphenhydramine HCl (Benadryl -) 25 mg PO Q6H PRN PRN Reason: FOR ITCHING Last Admin: 07/02/19 22:38 Dose: 25 mg Folic Acid (Folic Acid -) 1 mg PO DAILY [facility] Last Admin: 07/03/19 10:29 Dose: 1 mg Furosemide (Lasix -) 60 mg PO BID@0600,1400 [facility] Last Admin: 07/03/19 14:33 Dose: 60 mg Isosorbide Mononitrate (Imdur -) 60 mg PO DAILY [facility] Last Admin: 07/03/19 10:28 Dose: 60 mg Losartan Potassium (Cozaar -) 25 mg PO DAILY [facility] Last Admin: 07/03/19 10:29 Dose: 25 mg Montelukast Sodium (Singulair -) 10 mg PO HS [facility] Last Admin: 07/02/19 22:36 Dose: 10 mg Nystatin (Mycostatin Ointment -) 1 applic TP BID [facility] Last Admin: 07/03/19 10:30 Dose: 1 applic Ondansetron HCl (Zofran Injection) 4 mg IVPUSH Q6H PRN PRN Reason: NAUSEA AND/OR VOMITING Pantoprazole Sodium (Protonix -) 20 mg PO DAILY [facility] Last Admin: 07/03/19 10:29 Dose: 20 mg Polyethylene Glycol (Miralax (For Daily Use) -) 17 gm PO DAILY [facility] Prednisone (Deltasone -) 10 mg PO DAILY [facility] Last Admin: 07/03/19 10:29 Dose: 10 mg Thiamine HCl (Vitamin B1 -) 100 mg PO DAILY [facility] Last Admin: 07/03/19 10:30 Dose: 100 mg Trazodone HCl (Desyrel -) 100 mg PO DAILY [facility] Last Admin: 07/03/19 10:29 Dose: 100 mg - Objective Vital Signs: Vital Signs Temperature 97.6 F 07/03/19 16:00 Pulse Rate 95 H 07/03/19 16:00 Respiratory Rate 20 07/03/19 16:00 Blood Pressure 133/89 07/03/19 16:00 O2 Sat by Pulse Oximetry (%) 96 07/02/19 21:00 Constitutional: Yes: Calm Eyes: Yes: Conjunctiva Clear HENT: Yes: Atraumatic Neck: Yes: Supple Cardiovascular: Yes: S1, S2 Respiratory: Yes: CTA Bilaterally Gastrointestinal: Yes: Normal Bowel Sounds, Soft Genitourinary: Yes: WNL Edema: Yes Edema: LLE: 1+, RLE: 1+ Neurological: Yes: Oriented Psychiatric: Yes: Oriented Labs: CBC, BMP 07/03/19 08:05 07/03/19 08:05 INR, PTT INR 1.34 (0.83-1.09) H 07/02/19 08:20 Problem List - Problems (1) CHF (congestive heart failure) Code(s): I50.9 - HEART FAILURE, UNSPECIFIED Qualifiers: Heart failure type: unspecified Heart failure chronicity: acute on chronic Qualified Code(s): I50.9 - Heart failure, unspecified (2) Hyponatremia Code(s): E87.1 - HYPO-OSMOLALITY AND HYPONATREMIA Assessment/Plan Current Medications Generic Name Dose Route Start Last Admin Trade Name Freq PRN Reason Stop Dose Admin Albuterol/Ipratropium 1 amp 06/29/19 15:14 Duoneb - NEB Q6H PRN SHORTNESS OF BREATH Apixaban 5 mg 06/28/19 22:00 07/03/19 10:29 Eliquis - PO 5 mg BID [facility] Administration Digoxin 0.125 mg 06/29/19 10:00 07/03/19 10:29 Lanoxin - PO 0.125 mg DAILY [facility] Administration Diphenhydramine HCl 25 mg 06/29/19 15:15 07/02/19 22:38 Benadryl - PO 25 mg Q6H PRN Administration FOR ITCHING Folic Acid 1 mg 06/29/19 10:00 07/03/19 10:29 Folic Acid - PO 1 mg DAILY [facility] Administration Furosemide 60 mg 07/03/19 06:00 07/03/19 14:33 Lasix - PO 60 mg BID@0600,1400 [facility] Administration Isosorbide Mononitrate 60 mg 06/29/19 10:00 07/03/19 10:28 Imdur - PO 60 mg DAILY [facility] Administration Losartan Potassium 25 mg 06/29/19 10:00 07/03/19 10:29 Cozaar - PO 25 mg DAILY [facility] Administration Montelukast Sodium 10 mg 06/28/19 22:00 07/02/19 22:36 Singulair - PO 10 mg HS [facility] Administration Nystatin 1 applic 06/28/19 23:45 07/03/19 10:30 Mycostatin Ointment - TP 1 applic BID [facility] Administration Ondansetron HCl 4 mg 06/28/19 14:28 Zofran Injection IVPUSH Q6H PRN NAUSEA AND/OR VOMITING Pantoprazole Sodium 20 mg 07/01/19 10:00 07/03/19 10:29 Protonix - PO 20 mg DAILY [facility] Administration Polyethylene Glycol 17 gm 07/03/19 14:00 Miralax (For Daily Use) - PO DAILY [facility] Prednisone 10 mg 06/29/19 10:00 07/03/19 10:29 Deltasone - PO 10 mg DAILY [facility] Administration Thiamine HCl 100 mg 06/29/19 10:00 07/03/19 10:30 Vitamin B1 - PO 100 mg DAILY [facility] Administration Trazodone HCl 100 mg 06/29/19 10:00 07/03/19 10:29 Desyrel - PO 100 mg DAILY [facility] Administration Impression 1. CHF 2. hyponatremia - hypervolemic 3. fluid overload 4. asthma 5. a-fib 6. DM Plan - cont po lasix - will give a dose of potassium - repeat labs tomorrow - sodium improved - low sodium diet - hypervolemic hyponatremia from chf - monitor bp
[2019-07-03] MEDS ORDERED: POTASSIUM CHLORIDE TABS 20 MEQ TABLET.ER (FP) PO ONE (16:56)
[2019-07-03] MEDS: POLYETHYLENE GLYCOL 3350 119 GM BTL PO SCH (18:22)
[2019-07-03] MEDS: MONTELUKAST NA 10 MG TABLET PO SCH (22:28)
[2019-07-03] MEDS: diphenhydrAMINE HCL 25 MG CAPSULE (FP) PO PRN (22:31)
[2019-07-04] MEDS: FUROSEMIDE 20 MG TABLET (FP) PO SCH ×2 (06:48→13:49)
[2019-07-04 07:51] LABS: HEMATOCRIT 34.9 % (35.4-49); HEMOGLOBIN 11.6 GM/dL (11.7-16.9); MCH 30.8 pg (25.7-33.7); MCHC 33.3 g/dl (32.0-35.9); MEAN CELL VOLUME 92.4 fl (80-96); MEAN PLT VOLUME 9.1 fl (7.5-11.1); PLATELET COUNT 143 K/MM3 (134-434); RBC 3.78 M/mm3 (4.00-5.60); RDW 19.9 % (11.9-15.9); WHITE BLOOD COUNT 5.9 K/mm3 (4.0-10.0)
[2019-07-04 08:29] LABS: ALBUMIN 2.6 g/dl (3.4-5.0); BILIRUBIN,TOTAL 1.1 mg/dL (0.2-1); BLOOD UREA NITROGEN 28.2 mg/dL (7-18); CALCIUM 7.7 mg/dL (8.5-10.1); CREATININE 1.1 mg/dL (0.55-1.3); POTASSIUM 3.5 mmol/L (3.5-5.1); TOT PROT 6.5 g/dl (6.4-8.2)
[2019-07-04] MEDS ORDERED: PT OWN MED DRAWER 7, Y5N ONE (09:59)
--- NOTE | 2019-07-04 10:28 | PN ---
Progress Note, Physician History of Present Illness: PULMONARY ALERT,FEEING BETTER ,COMFORTABLE,-SOB - Current Medication List Current Medications: Active Medications Albuterol/Ipratropium (Duoneb -) 1 amp NEB Q6H PRN PRN Reason: SHORTNESS OF BREATH Apixaban (Eliquis -) 5 mg PO BID [facility] Last Admin: 07/03/19 22:28 Dose: 5 mg Digoxin (Lanoxin -) 0.125 mg PO DAILY [facility] Last Admin: 07/03/19 10:29 Dose: 0.125 mg Diphenhydramine HCl (Benadryl -) 25 mg PO Q6H PRN PRN Reason: FOR ITCHING Last Admin: 07/03/19 22:31 Dose: 25 mg Folic Acid (Folic Acid -) 1 mg PO DAILY [facility] Last Admin: 07/03/19 10:29 Dose: 1 mg Furosemide (Lasix -) 60 mg PO BID@0600,1400 [facility] Last Admin: 07/04/19 06:48 Dose: 60 mg Isosorbide Mononitrate (Imdur -) 60 mg PO DAILY [facility] Last Admin: 07/03/19 10:28 Dose: 60 mg Losartan Potassium (Cozaar -) 25 mg PO DAILY [facility] Last Admin: 07/03/19 10:29 Dose: 25 mg Montelukast Sodium (Singulair -) 10 mg PO HS [facility] Last Admin: 07/03/19 22:28 Dose: 10 mg Nystatin (Mycostatin Ointment -) 1 applic TP BID [facility] Last Admin: 07/03/19 22:28 Dose: 1 applic Ondansetron HCl (Zofran Injection) 4 mg IVPUSH Q6H PRN PRN Reason: NAUSEA AND/OR VOMITING Pantoprazole Sodium (Protonix -) 20 mg PO DAILY [facility] Last Admin: 07/03/19 10:29 Dose: 20 mg Polyethylene Glycol (Miralax (For Daily Use) -) 17 gm PO DAILY [facility] Last Admin: 07/03/19 18:22 Dose: 17 grams Prednisone (Deltasone -) 10 mg PO DAILY [facility] Last Admin: 07/03/19 10:29 Dose: 10 mg Thiamine HCl (Vitamin B1 -) 100 mg PO DAILY [facility] Last Admin: 07/03/19 10:30 Dose: 100 mg Trazodone HCl (Desyrel -) 100 mg PO DAILY [facility] Last Admin: 07/03/19 10:29 Dose: 100 mg - Objective Vital Signs: Vital Signs Temperature 98.7 F 07/04/19 06:11 Pulse Rate 106 H 07/04/19 06:11 Respiratory Rate 20 07/04/19 06:11 Blood Pressure 141/93 07/04/19 06:11 O2 Sat by Pulse Oximetry (%) 96 07/03/19 21:00 Constitutional: Yes: Well Nourished, Calm Eyes: Yes: WNL HENT: Yes: WNL Neck: Yes: WNL Cardiovascular: Yes: Pulse Irregular, S1, S2 Respiratory: Yes: Diminished Gastrointestinal: Yes: Normal Bowel Sounds, Soft Extremities: Yes: WNL, Erythema Edema: Yes (LESS EDEMA BILATERALLY) Labs: CBC, BMP 07/04/19 06:30 07/04/19 06:30 INR, PTT INR 1.34 (0.83-1.09) H 07/02/19 08:20 Problem List - Problems (1) Abnormal liver function tests Code(s): R94.5 - ABNORMAL RESULTS OF LIVER FUNCTION STUDIES (2) CHF (congestive heart failure) Code(s): I50.9 - HEART FAILURE, UNSPECIFIED Qualifiers: Heart failure type: unspecified Heart failure chronicity: acute on chronic Qualified Code(s): I50.9 - Heart failure, unspecified (3) COPD (chronic obstructive pulmonary disease) Code(s): J44.9 - CHRONIC OBSTRUCTIVE PULMONARY DISEASE, UNSPECIFIED Qualifiers: COPD type: unspecified COPD Qualified Code(s): J44.9 - Chronic obstructive pulmonary disease, unspecified (4) Hyponatremia Code(s): E87.1 - HYPO-OSMOLALITY AND HYPONATREMIA (5) Acute on chronic diastolic CHF (congestive heart failure) Code(s): I50.33 - ACUTE ON CHRONIC DIASTOLIC (CONGESTIVE) HEART FAILURE (6) Atrial fibrillation Code(s): I48.91 - UNSPECIFIED ATRIAL FIBRILLATION Qualifiers: Atrial fibrillation type: persistent Qualified Code(s): I48.1 - Persistent atrial fibrillation (7) CAD (coronary artery disease) Code(s): I25.10 - ATHSCL HEART DISEASE OF [place] CORONARY ARTERY W/O ANG PCTRS Qualifiers: Coronary Disease-Associated Artery/Lesion type: [place] artery [place] vs. transplanted heart: [place] heart Associated angina: without angina Qualified Code(s): I25.10 - Atherosclerotic heart disease of [place] coronary artery without angina pectoris (8) Diabetes Code(s): E11.9 - TYPE 2 DIABETES MELLITUS WITHOUT COMPLICATIONS Qualifiers: Diabetes mellitus type: type 2 (9) Elevated LFTs Code(s): R94.5 - ABNORMAL RESULTS OF LIVER FUNCTION STUDIES (10) Shortness of breath Code(s): R06.02 - SHORTNESS OF BREATH Assessment/Plan ASSESSMENT/PLAN: Hypervolemic hyponatremia in the setting of poor solute intake, chronic alcoholism, and CHF improved HFrEF Transaminitis 2/2 to alcohol abuse and congestive hepatopathy Severe lv dysfunction Hx of COPD Permanent Atrial fibrillation OSAS HTN HLD Abdominal pain Lasix BID CPAP QHS O2 as needed Strict I & O Prednisone Singulair Daily weights Nyla TEJEDA
[2019-07-04] MEDS: PANTOPRAZOLE 20 MG TABLET (FP) PO SCH (10:38)
[2019-07-04] MEDS: DIGOXIN 0.125 MG TABLET (FP) PO SCH (10:39)
[2019-07-04] MEDS: ISOSORBIDE MONONITRATE 60 MG TAB.SR.24H (FP) PO SCH (10:39)
[2019-07-04] MEDS: FOLIC ACID 1 MG TABLET (FP) PO SCH (10:39)
[2019-07-04] MEDS: APIXABAN 5 MG TABLET PO SCH ×2 (10:39→22:05)
[2019-07-04] MEDS: traZODone HCL 100 MG TABLET (FP) PO SCH (10:39)
[2019-07-04] MEDS: predniSONE 10 MG TABLET (UD) PO SCH (10:39)
[2019-07-04] MEDS: NYSTATIN 100000 UNIT/GM TOPICAL OINTMENT 15 GM TUBE TP SCH ×2 (10:40→22:04)
[2019-07-04] MEDS: THIAMINE HCL 100 MG TABLET (FP) PO SCH (10:40)
[2019-07-04] MEDS: LOSARTAN POTASSIUM 25 MG TABLET PO SCH (10:41)
[2019-07-04] MEDS: POLYETHYLENE GLYCOL 3350 119 GM BTL PO SCH (10:44)
--- NOTE | 2019-07-04 13:33 | PN ---
Progress Note, Physician Chief Complaint: CHF Exacerbation History of Present Illness: Previous notes and events reviewed awake and alert NAD states breathing is improving denies chest pain complain of llq pain--CT scan reviewed - Current Medication List Current Medications: Active Medications Albuterol/Ipratropium (Duoneb -) 1 amp NEB Q6H PRN PRN Reason: SHORTNESS OF BREATH Apixaban (Eliquis -) 5 mg PO BID [facility] Last Admin: 07/04/19 10:39 Dose: 5 mg Budesonide/Formoterol Fumarate (Symbicort 80/4.5mcg -) 2 puff IH BID [facility] Digoxin (Lanoxin -) 0.125 mg PO DAILY [facility] Last Admin: 07/04/19 10:39 Dose: 0.125 mg Diphenhydramine HCl (Benadryl -) 25 mg PO Q6H PRN PRN Reason: FOR ITCHING Last Admin: 07/03/19 22:31 Dose: 25 mg Folic Acid (Folic Acid -) 1 mg PO DAILY [facility] Last Admin: 07/04/19 10:39 Dose: 1 mg Furosemide (Lasix -) 60 mg PO BID@0600,1400 [facility] Last Admin: 07/04/19 06:48 Dose: 60 mg Isosorbide Mononitrate (Imdur -) 60 mg PO DAILY [facility] Last Admin: 07/04/19 10:39 Dose: 60 mg Losartan Potassium (Cozaar -) 25 mg PO DAILY [facility] Last Admin: 07/04/19 10:41 Dose: 25 mg Montelukast Sodium (Singulair -) 10 mg PO HS [facility] Last Admin: 07/03/19 22:28 Dose: 10 mg Nystatin (Mycostatin Ointment -) 1 applic TP BID [facility] Last Admin: 07/04/19 10:40 Dose: 1 applic Ondansetron HCl (Zofran Injection) 4 mg IVPUSH Q6H PRN PRN Reason: NAUSEA AND/OR VOMITING Pantoprazole Sodium (Protonix -) 20 mg PO DAILY [facility] Last Admin: 07/04/19 10:38 Dose: 20 mg Polyethylene Glycol (Miralax (For Daily Use) -) 17 gm PO DAILY [facility] Last Admin: 07/04/19 10:44 Dose: 17 grams Prednisone (Deltasone -) 10 mg PO DAILY [facility] Last Admin: 07/04/19 10:39 Dose: 10 mg Thiamine HCl (Vitamin B1 -) 100 mg PO DAILY [facility] Last Admin: 07/04/19 10:40 Dose: 100 mg Trazodone HCl (Desyrel -) 100 mg PO DAILY [facility] Last Admin: 07/04/19 10:39 Dose: 100 mg - Objective Vital Signs: Vital Signs Temperature 98 F 07/04/19 10:57 Pulse Rate 88 07/04/19 10:57 Respiratory Rate 20 07/04/19 10:57 Blood Pressure 120/77 07/04/19 10:57 O2 Sat by Pulse Oximetry (%) 96 07/03/19 21:00 Constitutional: Yes: No Distress, Calm, Obese Eyes: Yes: Conjunctiva Clear HENT: Yes: Atraumatic Cardiovascular: Yes: Regular Rate and Rhythm Respiratory: Yes: Regular, Diminished Gastrointestinal: Yes: Normal Bowel Sounds, Soft, Abdomen, Obese, Tenderness ( llq) Musculoskeletal: Yes: Muscle Weakness Extremities: Yes: WNL Edema: Yes Edema: LLE: Trace, RLE: Trace Neurological: Yes: Alert, Oriented Psychiatric: Yes: Alert, Oriented Labs: CBC, BMP 07/04/19 06:30 07/04/19 06:30 INR, PTT INR 1.34 (0.83-1.09) H 07/02/19 08:20 - ....Imaging Cat Scan: Report Reviewed Problem List - Problems (1) Abnormal liver function tests Assessment/Plan: -GI on board -AST 46, ALT 51, Alk phos 230 -monitor LFTs daily -Abd US shows hepatomegaly with fatty infiltration vs hepatocellular disease Code(s): R94.5 - ABNORMAL RESULTS OF LIVER FUNCTION STUDIES (2) Hyponatremia Assessment/Plan: -Na 138 -monitor electrolyte daily -Renal on board - Code(s): E87.1 - HYPO-OSMOLALITY AND HYPONATREMIA (3) Atrial fibrillation Assessment/Plan: -Cardiology on board -Eliquis -Digoxin for rate control Code(s): I48.91 - UNSPECIFIED ATRIAL FIBRILLATION Qualifiers: Atrial fibrillation type: persistent Qualified Code(s): I48.1 - Persistent atrial fibrillation (4) CHF exacerbation Assessment/Plan: -Cardiology on board -Furosemide -Losartan -1L fluid restriction -strict I&Os -daily weights -dietary consult placed Code(s): I50.9 - HEART FAILURE, UNSPECIFIED Qualifiers: Heart failure type: unspecified Qualified Code(s): I50.9 - Heart failure, unspecified (5) Hypertension Assessment/Plan: -Losartan -low Na diet Code(s): I10 - ESSENTIAL (PRIMARY) HYPERTENSION Qualifiers: Hypertension type: essential hypertension Qualified Code(s): I10 - Essential (primary) hypertension (6) COPD (chronic obstructive pulmonary disease) Assessment/Plan: -Bronchodilators -Pulm on board -O2 via NC -keep SpO2 >90% -prednisone -Singulair -Abdominal CT scan shows 2cm pleural thickening or nodular consolidation RLL -CHest CT scan ordered Code(s): J44.9 - CHRONIC OBSTRUCTIVE PULMONARY DISEASE, UNSPECIFIED Qualifiers: COPD type: unspecified COPD Qualified Code(s): J44.9 - Chronic obstructive pulmonary disease, unspecified (7) Abdominal pain Assessment/Plan: -CT scan shows sigmoid diverticulosis, possible chronic sigmoid diverticulitis -will recall GI Code(s): R10.9 - UNSPECIFIED ABDOMINAL PAIN Assessment/Plan see problem list dvt ppx
[2019-07-04] MEDS: BUDESONIDE/FORMETEROL FUMARATE 80/4.5 mcg INHALER IH SCH ×2 (13:49→22:05)
--- NOTE | 2019-07-04 14:38 | PN ---
Progress Note, Physician History of Present Illness: Pt seen and examined at bedside. He feels more comfortable today. He denies chest pain. - Current Medication List Current Medications: Active Medications Albuterol/Ipratropium (Duoneb -) 1 amp NEB Q6H PRN PRN Reason: SHORTNESS OF BREATH Apixaban (Eliquis -) 5 mg PO BID [facility] Last Admin: 07/04/19 10:39 Dose: 5 mg Budesonide/Formoterol Fumarate (Symbicort 80/4.5mcg -) 2 puff IH BID [facility] Last Admin: 07/04/19 13:49 Dose: 2 puff Digoxin (Lanoxin -) 0.125 mg PO DAILY [facility] Last Admin: 07/04/19 10:39 Dose: 0.125 mg Diphenhydramine HCl (Benadryl -) 25 mg PO Q6H PRN PRN Reason: FOR ITCHING Last Admin: 07/03/19 22:31 Dose: 25 mg Folic Acid (Folic Acid -) 1 mg PO DAILY [facility] Last Admin: 07/04/19 10:39 Dose: 1 mg Furosemide (Lasix -) 60 mg PO BID@0600,1400 [facility] Last Admin: 07/04/19 13:49 Dose: 60 mg Isosorbide Mononitrate (Imdur -) 60 mg PO DAILY [facility] Last Admin: 07/04/19 10:39 Dose: 60 mg Losartan Potassium (Cozaar -) 25 mg PO DAILY [facility] Last Admin: 07/04/19 10:41 Dose: 25 mg Montelukast Sodium (Singulair -) 10 mg PO HS [facility] Last Admin: 07/03/19 22:28 Dose: 10 mg Nystatin (Mycostatin Ointment -) 1 applic TP BID [facility] Last Admin: 07/04/19 10:40 Dose: 1 applic Ondansetron HCl (Zofran Injection) 4 mg IVPUSH Q6H PRN PRN Reason: NAUSEA AND/OR VOMITING Pantoprazole Sodium (Protonix -) 20 mg PO DAILY [facility] Last Admin: 07/04/19 10:38 Dose: 20 mg Polyethylene Glycol (Miralax (For Daily Use) -) 17 gm PO DAILY [facility] Last Admin: 07/04/19 10:44 Dose: 17 grams Prednisone (Deltasone -) 10 mg PO DAILY [facility] Last Admin: 07/04/19 10:39 Dose: 10 mg Thiamine HCl (Vitamin B1 -) 100 mg PO DAILY [facility] Last Admin: 07/04/19 10:40 Dose: 100 mg Trazodone HCl (Desyrel -) 100 mg PO DAILY [facility] Last Admin: 07/04/19 10:39 Dose: 100 mg - Objective Vital Signs: Vital Signs Temperature 98 F 07/04/19 10:57 Pulse Rate 88 07/04/19 10:57 Respiratory Rate 20 07/04/19 10:57 Blood Pressure 120/77 07/04/19 10:57 O2 Sat by Pulse Oximetry (%) 96 07/03/19 21:00 Constitutional: Yes: Calm Eyes: Yes: Conjunctiva Clear HENT: Yes: Atraumatic Neck: Yes: Supple Cardiovascular: Yes: S1, S2 Respiratory: Yes: CTA Bilaterally, On Nasal O2 Gastrointestinal: Yes: Soft, Abdomen, Obese Genitourinary: Yes: WNL Musculoskeletal: Yes: WNL Edema: Yes Edema: LLE: 1+, RLE: 1+ Neurological: Yes: Oriented Psychiatric: Yes: Oriented Labs: CBC, BMP 07/04/19 06:30 07/04/19 06:30 INR, PTT INR 1.34 (0.83-1.09) H 07/02/19 08:20 Problem List - Problems (1) CHF (congestive heart failure) Code(s): I50.9 - HEART FAILURE, UNSPECIFIED Qualifiers: Heart failure type: unspecified Heart failure chronicity: acute on chronic Qualified Code(s): I50.9 - Heart failure, unspecified (2) Hyponatremia Code(s): E87.1 - HYPO-OSMOLALITY AND HYPONATREMIA Assessment/Plan Current Medications Generic Name Dose Route Start Last Admin Trade Name Freq PRN Reason Stop Dose Admin Albuterol/Ipratropium 1 amp 06/29/19 15:14 Duoneb - NEB Q6H PRN SHORTNESS OF BREATH Apixaban 5 mg 06/28/19 22:00 07/04/19 10:39 Eliquis - PO 5 mg BID [facility] Administration Budesonide/Formoterol Fumarate 2 puff 07/04/19 12:00 07/04/19 13:49 Symbicort 80/4.5mcg - IH 2 puff BID [facility] Administration Digoxin 0.125 mg 06/29/19 10:00 07/04/19 10:39 Lanoxin - PO 0.125 mg DAILY [facility] Administration Diphenhydramine HCl 25 mg 06/29/19 15:15 07/03/19 22:31 Benadryl - PO 25 mg Q6H PRN Administration FOR ITCHING Folic Acid 1 mg 06/29/19 10:00 07/04/19 10:39 Folic Acid - PO 1 mg DAILY [facility] Administration Furosemide 60 mg 07/03/19 06:00 07/04/19 13:49 Lasix - PO 60 mg BID@0600,1400 [facility] Administration Isosorbide Mononitrate 60 mg 06/29/19 10:00 07/04/19 10:39 Imdur - PO 60 mg DAILY [facility] Administration Losartan Potassium 25 mg 06/29/19 10:00 07/04/19 10:41 Cozaar - PO 25 mg DAILY [facility] Administration Montelukast Sodium 10 mg 06/28/19 22:00 07/03/19 22:28 Singulair - PO 10 mg HS [facility] Administration Nystatin 1 applic 06/28/19 23:45 07/04/19 10:40 Mycostatin Ointment - TP 1 applic BID [facility] Administration Ondansetron HCl 4 mg 06/28/19 14:28 Zofran Injection IVPUSH Q6H PRN NAUSEA AND/OR VOMITING Pantoprazole Sodium 20 mg 07/01/19 10:00 07/04/19 10:38 Protonix - PO 20 mg DAILY [facility] Administration Polyethylene Glycol 17 gm 07/03/19 14:00 07/04/19 10:44 Miralax (For Daily Use) - PO 17 grams DAILY [facility] Administration Prednisone 10 mg 06/29/19 10:00 07/04/19 10:39 Deltasone - PO 10 mg DAILY [facility] Administration Thiamine HCl 100 mg 06/29/19 10:00 07/04/19 10:40 Vitamin B1 - PO 100 mg DAILY [facility] Administration Trazodone HCl 100 mg 06/29/19 10:00 07/04/19 10:39 Desyrel - PO 100 mg DAILY [facility] Administration Impression 1. CHF 2. hyponatremia - hypervolemic 3. fluid overload 4. asthma 5. a-fib 6. DM Plan - cont lasix - monitor lytes - sodium improved - low sodium diet - hypervolemic hyponatremia from chf
--- NOTE | 2019-07-04 14:44 | PN.GI ---
GI Progress Note Subjective: patient has chronic diverticulitis by ct scan, mass right lobe lower lobe - Objective Vital Signs: Vital Signs Temperature 98 F 07/04/19 10:57 Pulse Rate 88 07/04/19 10:57 Respiratory Rate 20 07/04/19 10:57 Blood Pressure 120/77 07/04/19 10:57 O2 Sat by Pulse Oximetry (%) 96 07/03/19 21:00 Constitutional: Obese Eyes: Yes: Conjunctiva Clear HENT: Yes: Atraumatic Neck: Yes: Supple Cardiovascular: Yes: Regular Rate and Rhythm Respiratory: Yes: CTA Bilaterally ...Auscultate: No: No Bowel Sounds ...Palpate: Yes: Soft, Tenderness (--llq). No: Firm/Rigid, Guarding, Hepatomegaly, Splenomegaly Labs: CBC, BMP 07/04/19 06:30 07/04/19 06:30 INR, PTT INR 1.34 (0.83-1.09) H 07/02/19 08:20 Problem List - Problems (1) Diverticulitis Assessment/Plan: R> start Rocephin and Flagyl clear liquids , advance when abdominal pain resolved Code(s): K57.92 - DVTRCLI OF INTEST, PART UNSP, W/O PERF OR ABSCESS W/O BLEED
[2019-07-04] MEDS ORDERED: DEXTROSE 5%-WATER - 50 ML IVPB ONE (18:44)
[2019-07-04] MEDS ORDERED: cefTRIAXone SODIUM 1 GM VIAL ONE (18:44)
[2019-07-04] MEDS: CEFTRIAXONE 1 GM in DEXTROSE 5%-WATER - 50 ML IVPB SCH (19:25)
[2019-07-04] MEDS: MONTELUKAST NA 10 MG TABLET PO SCH (22:05)
[2019-07-04] MEDS: diphenhydrAMINE HCL 25 MG CAPSULE (FP) PO PRN (22:10)
[2019-07-05] MEDS ORDERED: PT OWN MED DRAWER 7, Y5N ONE ×2 (05:15→10:10)
[2019-07-05] MEDS: FUROSEMIDE 20 MG TABLET (FP) PO SCH ×2 (06:18→14:44)
[2019-07-05 08:55] LABS: HEMATOCRIT 37.7 % (35.4-49); HEMOGLOBIN 12.5 GM/dL (11.7-16.9); MCH 30.5 pg (25.7-33.7); MCHC 33.2 g/dl (32.0-35.9); MEAN CELL VOLUME 91.8 fl (80-96); MEAN PLT VOLUME 9.2 fl (7.5-11.1); PLATELET COUNT 153 K/MM3 (134-434); RDW 20.5 % (11.9-15.9)
[2019-07-05 09:21] LABS: BILIRUBIN,TOTAL 1.3 mg/dL (0.2-1); BLOOD UREA NITROGEN 20.6 mg/dL (7-18); CALCIUM 7.8 mg/dL (8.5-10.1); CREATININE 0.9 mg/dL (0.55-1.3); POTASSIUM 3.9 mmol/L (3.5-5.1); TOT PROT 7.5 g/dl (6.4-8.2)
[2019-07-05] MEDS ORDERED: cefTRIAXone SODIUM 1 GM VIAL ONE (10:08)
[2019-07-05] MEDS ORDERED: DEXTROSE 5%-WATER - 50 ML IVPB ONE (10:09)
[2019-07-05] MEDS: FOLIC ACID 1 MG TABLET (FP) PO SCH (10:17)
[2019-07-05] MEDS: APIXABAN 5 MG TABLET PO SCH ×2 (10:17→21:37)
[2019-07-05] MEDS: traZODone HCL 100 MG TABLET (FP) PO SCH (10:17)
[2019-07-05] MEDS: diphenhydrAMINE HCL 25 MG CAPSULE (FP) PO PRN ×2 (10:17→21:37)
[2019-07-05] MEDS: LOSARTAN POTASSIUM 25 MG TABLET PO SCH (10:17)
[2019-07-05] MEDS: DIGOXIN 0.125 MG TABLET (FP) PO SCH (10:18)
[2019-07-05] MEDS: ISOSORBIDE MONONITRATE 60 MG TAB.SR.24H (FP) PO SCH (10:18)
[2019-07-05] MEDS: predniSONE 10 MG TABLET (UD) PO SCH (10:18)
[2019-07-05] MEDS: PANTOPRAZOLE 20 MG TABLET (FP) PO SCH (10:18)
[2019-07-05] MEDS: CEFTRIAXONE 1 GM in DEXTROSE 5%-WATER - 50 ML IVPB SCH (10:19)
[2019-07-05] MEDS: BUDESONIDE/FORMETEROL FUMARATE 80/4.5 mcg INHALER IH SCH ×2 (10:19→21:38)
[2019-07-05] MEDS: THIAMINE HCL 100 MG TABLET (FP) PO SCH (10:20)
[2019-07-05] MEDS: NYSTATIN 100000 UNIT/GM TOPICAL OINTMENT 15 GM TUBE TP SCH ×2 (10:28→21:38)
[2019-07-05] MEDS: POLYETHYLENE GLYCOL 3350 119 GM BTL PO SCH (10:28)
--- NOTE | 2019-07-05 10:51 | PN ---
Progress Note, Physician History of Present Illness: PULMONARY AWAKE,-C/O SOB,C/O ABD PAIN - Current Medication List Current Medications: Active Medications Albuterol/Ipratropium (Duoneb -) 1 amp NEB Q6H PRN PRN Reason: SHORTNESS OF BREATH Apixaban (Eliquis -) 5 mg PO BID [facility] Last Admin: 07/05/19 10:17 Dose: 5 mg Budesonide/Formoterol Fumarate (Symbicort 80/4.5mcg -) 2 puff IH BID [facility] Last Admin: 07/05/19 10:19 Dose: 2 puff Digoxin (Lanoxin -) 0.125 mg PO DAILY [facility] Last Admin: 07/05/19 10:18 Dose: 0.125 mg Diphenhydramine HCl (Benadryl -) 25 mg PO Q6H PRN PRN Reason: FOR ITCHING Last Admin: 07/05/19 10:17 Dose: 25 mg Folic Acid (Folic Acid -) 1 mg PO DAILY [facility] Last Admin: 07/05/19 10:17 Dose: 1 mg Furosemide (Lasix -) 60 mg PO BID@0600,1400 [facility] Last Admin: 07/05/19 06:18 Dose: 60 mg Ceftriaxone Sodium 1 gm/ (Dextrose) 50 mls @ 100 mls/hr IVPB DAILY [facility] Last Admin: 07/05/19 10:19 Dose: 100 mls/hr Metronidazole (Flagyl 500mg Premixed Ivpb -) 500 mg in 100 mls @ 100 mls/hr IVPB Q8H-IV [facility] Last Admin: 07/05/19 01:29 Dose: 100 mls/hr Isosorbide Mononitrate (Imdur -) 60 mg PO DAILY [facility] Last Admin: 07/05/19 10:18 Dose: 60 mg Losartan Potassium (Cozaar -) 25 mg PO DAILY [facility] Last Admin: 07/05/19 10:17 Dose: 25 mg Montelukast Sodium (Singulair -) 10 mg PO HS [facility] Last Admin: 07/04/19 22:05 Dose: 10 mg Nystatin (Mycostatin Ointment -) 1 applic TP BID [facility] Last Admin: 07/05/19 10:28 Dose: 1 applic Ondansetron HCl (Zofran Injection) 4 mg IVPUSH Q6H PRN PRN Reason: NAUSEA AND/OR VOMITING Pantoprazole Sodium (Protonix -) 20 mg PO DAILY [facility] Last Admin: 07/05/19 10:18 Dose: 20 mg Polyethylene Glycol (Miralax (For Daily Use) -) 17 gm PO DAILY [facility] Last Admin: 07/05/19 10:28 Dose: Not Given Prednisone (Deltasone -) 10 mg PO DAILY [facility] Last Admin: 07/05/19 10:18 Dose: 10 mg Thiamine HCl (Vitamin B1 -) 100 mg PO DAILY [facility] Last Admin: 07/05/19 10:20 Dose: 100 mg Trazodone HCl (Desyrel -) 100 mg PO DAILY [facility] Last Admin: 07/05/19 10:17 Dose: 100 mg - Objective Vital Signs: Vital Signs Temperature 98.0 F 07/05/19 08:00 Pulse Rate 77 07/05/19 10:18 Respiratory Rate 21 H 07/05/19 08:00 Blood Pressure 122/87 07/05/19 08:00 O2 Sat by Pulse Oximetry (%) 96 07/04/19 21:00 Constitutional: Yes: Well Nourished, Calm Eyes: Yes: WNL HENT: Yes: WNL Neck: Yes: WNL Cardiovascular: Yes: Pulse Irregular, S1, S2 Respiratory: Yes: Diminished Gastrointestinal: Yes: Normal Bowel Sounds, Soft, Tenderness ( LLQ TENDERNESS) Extremities: Yes: WNL Edema: Yes Labs: CBC, BMP 07/05/19 08:05 07/05/19 08:05 INR, PTT INR 1.34 (0.83-1.09) H 07/02/19 08:20 - ....Imaging Cat Scan: Report Reviewed, Image Reviewed Problem List - Problems (1) Abnormal liver function tests Code(s): R94.5 - ABNORMAL RESULTS OF LIVER FUNCTION STUDIES (2) CHF (congestive heart failure) Code(s): I50.9 - HEART FAILURE, UNSPECIFIED Qualifiers: Heart failure type: unspecified Heart failure chronicity: acute on chronic Qualified Code(s): I50.9 - Heart failure, unspecified (3) COPD (chronic obstructive pulmonary disease) Code(s): J44.9 - CHRONIC OBSTRUCTIVE PULMONARY DISEASE, UNSPECIFIED Qualifiers: COPD type: unspecified COPD Qualified Code(s): J44.9 - Chronic obstructive pulmonary disease, unspecified (4) Hyponatremia Code(s): E87.1 - HYPO-OSMOLALITY AND HYPONATREMIA (5) Acute on chronic diastolic CHF (congestive heart failure) Code(s): I50.33 - ACUTE ON CHRONIC DIASTOLIC (CONGESTIVE) HEART FAILURE (6) Atrial fibrillation Code(s): I48.91 - UNSPECIFIED ATRIAL FIBRILLATION Qualifiers: Atrial fibrillation type: persistent Qualified Code(s): I48.1 - Persistent atrial fibrillation (7) CAD (coronary artery disease) Code(s): I25.10 - ATHSCL HEART DISEASE OF [place] CORONARY ARTERY W/O ANG PCTRS Qualifiers: Coronary Disease-Associated Artery/Lesion type: [place] artery [place] vs. transplanted heart: [place] heart Associated angina: without angina Qualified Code(s): I25.10 - Atherosclerotic heart disease of [place] coronary artery without angina pectoris (8) Diabetes Code(s): E11.9 - TYPE 2 DIABETES MELLITUS WITHOUT COMPLICATIONS Qualifiers: Diabetes mellitus type: type 2 (9) Elevated LFTs Code(s): R94.5 - ABNORMAL RESULTS OF LIVER FUNCTION STUDIES (10) Shortness of breath Code(s): R06.02 - SHORTNESS OF BREATH Assessment/Plan ASSESSMENT/PLAN: Hypervolemic hyponatremia in the setting of poor solute intake, chronic alcoholism, and CHF improved HFrEF Transaminitis 2/2 to alcohol abuse and congestive hepatopathy Severe lv dysfunction Hx of COPD Permanent Atrial fibrillation OSAS HTN HLD Abdominal pain RLL density ? atelectasis,nodule Lasix BID CPAP QHS O2 as needed Strict I & O Prednisone Singulair Daily weights Eliquis CHEST CT DR TEJEDA
--- NOTE | 2019-07-05 13:59 | PN ---
Progress Note, Physician Chief Complaint: CHF Exacerbation History of Present Illness: Previous notes and events reviewed awake and alert NAD states breathing is improving denies chest pain continue with llq pain diarrhea x 3 episodes last night - Current Medication List Current Medications: Active Medications Albuterol/Ipratropium (Duoneb -) 1 amp NEB Q6H PRN PRN Reason: SHORTNESS OF BREATH Apixaban (Eliquis -) 5 mg PO BID [facility] Last Admin: 07/05/19 10:17 Dose: 5 mg Budesonide/Formoterol Fumarate (Symbicort 80/4.5mcg -) 2 puff IH BID [facility] Last Admin: 07/05/19 10:19 Dose: 2 puff Digoxin (Lanoxin -) 0.125 mg PO DAILY [facility] Last Admin: 07/05/19 10:18 Dose: 0.125 mg Diphenhydramine HCl (Benadryl -) 25 mg PO Q6H PRN PRN Reason: FOR ITCHING Last Admin: 07/05/19 10:17 Dose: 25 mg Folic Acid (Folic Acid -) 1 mg PO DAILY [facility] Last Admin: 07/05/19 10:17 Dose: 1 mg Furosemide (Lasix -) 60 mg PO BID@0600,1400 [facility] Last Admin: 07/05/19 06:18 Dose: 60 mg Ceftriaxone Sodium 1 gm/ (Dextrose) 50 mls @ 100 mls/hr IVPB DAILY [facility] Last Admin: 07/05/19 10:19 Dose: 100 mls/hr Metronidazole (Flagyl 500mg Premixed Ivpb -) 500 mg in 100 mls @ 100 mls/hr IVPB Q8H-IV [facility] Last Admin: 07/05/19 11:00 Dose: 100 mls/hr Isosorbide Mononitrate (Imdur -) 60 mg PO DAILY [facility] Last Admin: 07/05/19 10:18 Dose: 60 mg Losartan Potassium (Cozaar -) 25 mg PO DAILY [facility] Last Admin: 07/05/19 10:17 Dose: 25 mg Montelukast Sodium (Singulair -) 10 mg PO HS [facility] Last Admin: 07/04/19 22:05 Dose: 10 mg Nystatin (Mycostatin Ointment -) 1 applic TP BID [facility] Last Admin: 07/05/19 10:28 Dose: 1 applic Ondansetron HCl (Zofran Injection) 4 mg IVPUSH Q6H PRN PRN Reason: NAUSEA AND/OR VOMITING Pantoprazole Sodium (Protonix -) 20 mg PO DAILY [facility] Last Admin: 07/05/19 10:18 Dose: 20 mg Polyethylene Glycol (Miralax (For Daily Use) -) 17 gm PO DAILY [facility] Last Admin: 07/05/19 10:28 Dose: Not Given Prednisone (Deltasone -) 10 mg PO DAILY [facility] Last Admin: 07/05/19 10:18 Dose: 10 mg Thiamine HCl (Vitamin B1 -) 100 mg PO DAILY [facility] Last Admin: 07/05/19 10:20 Dose: 100 mg Trazodone HCl (Desyrel -) 100 mg PO DAILY [facility] Last Admin: 07/05/19 10:17 Dose: 100 mg - Objective Vital Signs: Vital Signs Temperature 98.0 F 07/05/19 08:00 Pulse Rate 77 07/05/19 10:18 Respiratory Rate 21 H 07/05/19 08:00 Blood Pressure 122/87 07/05/19 08:00 O2 Sat by Pulse Oximetry (%) 96 07/04/19 21:00 Constitutional: Yes: No Distress, Calm, Obese Eyes: Yes: Conjunctiva Clear HENT: Yes: Atraumatic Cardiovascular: Yes: Regular Rate and Rhythm Respiratory: Yes: Regular, Diminished Gastrointestinal: Yes: Normal Bowel Sounds, Soft, Abdomen, Obese, Tenderness ( llq) Musculoskeletal: Yes: Muscle Weakness Extremities: Yes: WNL Edema: Yes Edema: LLE: Trace, RLE: Trace Neurological: Yes: Alert, Oriented Psychiatric: Yes: Alert, Oriented Labs: CBC, BMP 07/05/19 08:05 07/05/19 08:05 INR, PTT INR 1.34 (0.83-1.09) H 07/02/19 08:20 Problem List - Problems (1) Abnormal liver function tests Assessment/Plan: -GI on board -AST 42, ALT 51, Alk phos 216 -monitor LFTs daily -Abd US shows hepatomegaly with fatty infiltration vs hepatocellular disease Code(s): R94.5 - ABNORMAL RESULTS OF LIVER FUNCTION STUDIES (2) Hyponatremia Assessment/Plan: -Na 137 -monitor electrolyte daily -Renal on board - Code(s): E87.1 - HYPO-OSMOLALITY AND HYPONATREMIA (3) Atrial fibrillation Assessment/Plan: -Cardiology on board -Eliquis -Digoxin for rate control Code(s): I48.91 - UNSPECIFIED ATRIAL FIBRILLATION Qualifiers: Atrial fibrillation type: persistent Qualified Code(s): I48.1 - Persistent atrial fibrillation (4) CHF exacerbation Assessment/Plan: -Cardiology on board -Furosemide -Losartan -1L fluid restriction -strict I&Os -daily weights -dietary consult placed Code(s): I50.9 - HEART FAILURE, UNSPECIFIED Qualifiers: Heart failure type: unspecified Qualified Code(s): I50.9 - Heart failure, unspecified (5) Hypertension Assessment/Plan: -Losartan -low Na diet Code(s): I10 - ESSENTIAL (PRIMARY) HYPERTENSION Qualifiers: Hypertension type: essential hypertension Qualified Code(s): I10 - Essential (primary) hypertension (6) COPD (chronic obstructive pulmonary disease) Assessment/Plan: -Bronchodilators -Pulm on board -O2 via NC -keep SpO2 >90% -prednisone -Singulair -Abdominal CT scan shows 2cm pleural thickening or nodular consolidation RLL -CHest CT scan ordered Code(s): J44.9 - CHRONIC OBSTRUCTIVE PULMONARY DISEASE, UNSPECIFIED Qualifiers: COPD type: unspecified COPD Qualified Code(s): J44.9 - Chronic obstructive pulmonary disease, unspecified (7) Abdominal pain Assessment/Plan: -CT scan shows sigmoid diverticulosis, possible chronic sigmoid diverticulitis -will recall GI Code(s): R10.9 - UNSPECIFIED ABDOMINAL PAIN (8) Diverticulitis Assessment/Plan: -CT scan shows sigmoid diverticulosis, possible chronic sigmoid diverticulitis -Ceftriaxone, flagyl -clear liquid diet Code(s): K57.92 - DVTRCLI OF INTEST, PART UNSP, W/O PERF OR ABSCESS W/O BLEED Assessment/Plan see problem list
--- NOTE | 2019-07-05 15:09 | PN ---
Progress Note, Physician History of Present Illness: Pt seen and examined at bedside. He is awake and alert. He feels that shortness of breath is improved. - Current Medication List Current Medications: Active Medications Albuterol/Ipratropium (Duoneb -) 1 amp NEB Q6H PRN PRN Reason: SHORTNESS OF BREATH Apixaban (Eliquis -) 5 mg PO BID [facility] Last Admin: 07/05/19 10:17 Dose: 5 mg Budesonide/Formoterol Fumarate (Symbicort 80/4.5mcg -) 2 puff IH BID [facility] Last Admin: 07/05/19 10:19 Dose: 2 puff Digoxin (Lanoxin -) 0.125 mg PO DAILY [facility] Last Admin: 07/05/19 10:18 Dose: 0.125 mg Diphenhydramine HCl (Benadryl -) 25 mg PO Q6H PRN PRN Reason: FOR ITCHING Last Admin: 07/05/19 10:17 Dose: 25 mg Folic Acid (Folic Acid -) 1 mg PO DAILY [facility] Last Admin: 07/05/19 10:17 Dose: 1 mg Furosemide (Lasix -) 60 mg PO BID@0600,1400 [facility] Last Admin: 07/05/19 14:44 Dose: 60 mg Ceftriaxone Sodium 1 gm/ (Dextrose) 50 mls @ 100 mls/hr IVPB DAILY [facility] Last Admin: 07/05/19 10:19 Dose: 100 mls/hr Metronidazole (Flagyl 500mg Premixed Ivpb -) 500 mg in 100 mls @ 100 mls/hr IVPB Q8H-IV [facility] Last Admin: 07/05/19 11:00 Dose: 100 mls/hr Isosorbide Mononitrate (Imdur -) 60 mg PO DAILY [facility] Last Admin: 07/05/19 10:18 Dose: 60 mg Losartan Potassium (Cozaar -) 25 mg PO DAILY [facility] Last Admin: 07/05/19 10:17 Dose: 25 mg Montelukast Sodium (Singulair -) 10 mg PO HS [facility] Last Admin: 07/04/19 22:05 Dose: 10 mg Nystatin (Mycostatin Ointment -) 1 applic TP BID [facility] Last Admin: 07/05/19 10:28 Dose: 1 applic Ondansetron HCl (Zofran Injection) 4 mg IVPUSH Q6H PRN PRN Reason: NAUSEA AND/OR VOMITING Pantoprazole Sodium (Protonix -) 20 mg PO DAILY [facility] Last Admin: 07/05/19 10:18 Dose: 20 mg Polyethylene Glycol (Miralax (For Daily Use) -) 17 gm PO DAILY [facility] Last Admin: 07/05/19 10:28 Dose: Not Given Prednisone (Deltasone -) 10 mg PO DAILY [facility] Last Admin: 07/05/19 10:18 Dose: 10 mg Thiamine HCl (Vitamin B1 -) 100 mg PO DAILY [facility] Last Admin: 07/05/19 10:20 Dose: 100 mg Trazodone HCl (Desyrel -) 100 mg PO DAILY [facility] Last Admin: 07/05/19 10:17 Dose: 100 mg - Objective Vital Signs: Vital Signs Temperature 97.3 F L 07/05/19 14:49 Pulse Rate 97 H 07/05/19 14:49 Respiratory Rate 20 07/05/19 14:49 Blood Pressure 118/69 07/05/19 14:49 O2 Sat by Pulse Oximetry (%) 96 07/05/19 09:00 Constitutional: Yes: Calm Eyes: Yes: Conjunctiva Clear HENT: Yes: Atraumatic Neck: Yes: Supple Cardiovascular: Yes: S1, S2 Respiratory: Yes: CTA Bilaterally Gastrointestinal: Yes: Normal Bowel Sounds, Soft Genitourinary: Yes: WNL Musculoskeletal: Yes: WNL Edema: Yes Edema: LLE: 1+, RLE: 1+ Neurological: Yes: Oriented Psychiatric: Yes: Oriented Labs: CBC, BMP 07/05/19 08:05 07/05/19 08:05 INR, PTT INR 1.34 (0.83-1.09) H 07/02/19 08:20 Problem List - Problems (1) CHF (congestive heart failure) Code(s): I50.9 - HEART FAILURE, UNSPECIFIED Qualifiers: Heart failure type: unspecified Heart failure chronicity: acute on chronic Qualified Code(s): I50.9 - Heart failure, unspecified (2) Hyponatremia Code(s): E87.1 - HYPO-OSMOLALITY AND HYPONATREMIA Assessment/Plan Current Medications Generic Name Dose Route Start Last Admin Trade Name Freq PRN Reason Stop Dose Admin Albuterol/Ipratropium 1 amp 06/29/19 15:14 Duoneb - NEB Q6H PRN SHORTNESS OF BREATH Apixaban 5 mg 06/28/19 22:00 07/05/19 10:17 Eliquis - PO 5 mg BID [facility] Administration Budesonide/Formoterol Fumarate 2 puff 07/04/19 12:00 07/05/19 10:19 Symbicort 80/4.5mcg - IH 2 puff BID [facility] Administration Digoxin 0.125 mg 06/29/19 10:00 07/05/19 10:18 Lanoxin - PO 0.125 mg DAILY [facility] Administration Diphenhydramine HCl 25 mg 06/29/19 15:15 07/05/19 10:17 Benadryl - PO 25 mg Q6H PRN Administration FOR ITCHING Folic Acid 1 mg 06/29/19 10:00 07/05/19 10:17 Folic Acid - PO 1 mg DAILY [facility] Administration Furosemide 60 mg 07/03/19 06:00 07/05/19 14:44 Lasix - PO 60 mg BID@0600,1400 [facility] Administration Ceftriaxone Sodium 1 gm/ 50 mls @ 100 mls/hr 07/04/19 14:45 07/05/19 10:19 Dextrose IVPB 100 mls/hr DAILY [facility] Administration Metronidazole 500 mg in 100 mls @ 100 mls/hr 07/04/19 14:45 07/05/19 11:00 Flagyl 500mg Premixed Ivpb - IVPB 100 mls/hr Q8H-IV [facility] Administration Isosorbide Mononitrate 60 mg 06/29/19 10:00 07/05/19 10:18 Imdur - PO 60 mg DAILY [facility] Administration Losartan Potassium 25 mg 06/29/19 10:00 07/05/19 10:17 Cozaar - PO 25 mg DAILY [facility] Administration Montelukast Sodium 10 mg 06/28/19 22:00 07/04/19 22:05 Singulair - PO 10 mg HS [facility] Administration Nystatin 1 applic 06/28/19 23:45 07/05/19 10:28 Mycostatin Ointment - TP 1 applic BID [facility] Administration Ondansetron HCl 4 mg 06/28/19 14:28 Zofran Injection IVPUSH Q6H PRN NAUSEA AND/OR VOMITING Pantoprazole Sodium 20 mg 07/01/19 10:00 07/05/19 10:18 Protonix - PO 20 mg DAILY [facility] Administration Polyethylene Glycol 17 gm 07/03/19 14:00 07/05/19 10:28 Miralax (For Daily Use) - PO Not Given DAILY [facility] Prednisone 10 mg 06/29/19 10:00 07/05/19 10:18 Deltasone - PO 10 mg DAILY [facility] Administration Thiamine HCl 100 mg 06/29/19 10:00 07/05/19 10:20 Vitamin B1 - PO 100 mg DAILY [facility] Administration Trazodone HCl 100 mg 06/29/19 10:00 07/05/19 10:17 Desyrel - PO 100 mg DAILY [facility] Administration Impression 1. CHF 2. hyponatremia - hypervolemic 3. fluid overload 4. asthma 5. a-fib 6. DM Plan - cont with lasix - volume status improving - discussed low salt diet, compliance will likely be an issue - sodium stable - hypervolemic hyponatremia from chf
--- NOTE | 2019-07-05 18:11 | PN.GI ---
GI Progress Note Subjective: coverage Dr Cabrera abdominal pain mild, no nausea and vomiting - Objective Vital Signs: Vital Signs Temperature 97.3 F L 07/05/19 14:49 Pulse Rate 97 H 07/05/19 14:49 Respiratory Rate 20 07/05/19 14:49 Blood Pressure 118/69 07/05/19 14:49 O2 Sat by Pulse Oximetry (%) 96 07/05/19 09:00 Constitutional: Obese Eyes: Yes: Conjunctiva Clear HENT: Yes: Atraumatic Cardiovascular: Yes: Regular Rate and Rhythm Gastrointestinal Inspection: Yes: Distention ...Auscultate: Yes: Normoactive Bowel Sounds ...Palpate: Yes: Soft, Tenderness (llq tenderness). No: Firm/Rigid, Guarding, Hepatomegaly, Mass, Pulsatile Mass Labs: CBC, BMP 07/05/19 08:05 07/05/19 08:05 INR, PTT INR 1.34 (0.83-1.09) H 07/02/19 08:20 Problem List - Problems (1) Diverticulitis Assessment/Plan: R> advance diet once abdominal pain resolved continue antibiotics Code(s): K57.92 - DVTRCLI OF INTEST, PART UNSP, W/O PERF OR ABSCESS W/O BLEED
[2019-07-05] MEDS: MONTELUKAST NA 10 MG TABLET PO SCH (21:37)
[2019-07-06] MEDS: diphenhydrAMINE HCL 25 MG CAPSULE (FP) PO PRN ×2 (04:58→20:17)
[2019-07-06] MEDS: FUROSEMIDE 20 MG TABLET (FP) PO SCH ×2 (05:51→14:23)
[2019-07-06 07:50] LABS: HEMATOCRIT 34.4 % (35.4-49); HEMOGLOBIN 11.6 GM/dL (11.7-16.9); MCH 30.5 pg (25.7-33.7); MCHC 33.7 g/dl (32.0-35.9); MEAN CELL VOLUME 90.7 fl (80-96); MEAN PLT VOLUME 9.5 fl (7.5-11.1); PLATELET COUNT 146 K/MM3 (134-434); RBC 3.79 M/mm3 (4.00-5.60); RDW 20.1 % (11.9-15.9); WHITE BLOOD COUNT 6.3 K/mm3 (4.0-10.0)
[2019-07-06 08:15] LABS: ALBUMIN 2.7 g/dl (3.4-5.0); BILIRUBIN,TOTAL 1.1 mg/dL (0.2-1); BLOOD UREA NITROGEN 13.7 mg/dL (7-18); CREATININE 0.9 mg/dL (0.55-1.3); POTASSIUM 3.5 mmol/L (3.5-5.1); TOT PROT 6.6 g/dl (6.4-8.2)
--- NOTE | 2019-07-06 10:01 | PN.GI ---
GI Progress Note Subjective: Pt seen/examined at bedside, still with mostly LLQ pain, minimal improvement overall. Reports soft stool this am (not observed per nurse), no blood. Tolerating clear liquid diet. Denies n/v, fever/chills. SOB improved. - Objective Vital Signs: Vital Signs Temperature 98 F 07/06/19 09:25 Pulse Rate 102 H 07/06/19 09:25 Respiratory Rate 22 H 07/06/19 09:25 Blood Pressure 134/80 07/06/19 09:25 O2 Sat by Pulse Oximetry (%) 96 07/05/19 21:00 Constitutional: Well Nourished, No Distress, Calm Cardiovascular: Yes: WNL, Regular Rate and Rhythm Respiratory: Yes: WNL, Regular, CTA Bilaterally ...Palpate: Yes: Other (Abd soft, mildly tender on palpation in LLQ, nondistended, no rebound, guarding or rigidity) Labs: CBC, BMP 07/06/19 06:45 07/06/19 06:45 INR, PTT INR 1.34 (0.83-1.09) H 07/02/19 08:20 Problem List - Problems (1) Abnormal liver function tests Assessment/Plan: Improved, near normalized. Likely multifactorial with mixed pattern possibly secondary to congestive hepatopathy in setting of underlying NAFLD vs etoh component. Does not appear to be obstructive process. Labs/imaging otherwise not consistent with advanced liver disease/cirrhosis. -Continue to monitor LFTs daily to ensure normalization -HBV vaccination -Continue to avoid nonessential hepatotoxic medications Code(s): R94.5 - ABNORMAL RESULTS OF LIVER FUNCTION STUDIES (2) Abdominal pain Assessment/Plan: S/P CT abd/pelvis on 07/03/19 revealing possible chronic sigmoid diverticulitis. Pt on rocephin and flagyl, still with LLQ pain, minimal improvement overall. No fever or leucocytosis. ?reports of loose/soft stool (not observed per nurse) -Clear liquid diet as tolerated -Continue IV antibiotics -Check abd xray today -Monitor BMs -If worsening abdominal pain recommend repeat CT abd/pelvis -Stool studies if loose stool (d/w nursing staff) Code(s): R10.9 - UNSPECIFIED ABDOMINAL PAIN
[2019-07-06] MEDS ORDERED: DEXTROSE 5%-WATER - 50 ML IVPB ONE (11:21)
[2019-07-06] MEDS ORDERED: cefTRIAXone SODIUM 1 GM VIAL ONE (11:21)
[2019-07-06] MEDS: CEFTRIAXONE 1 GM in DEXTROSE 5%-WATER - 50 ML IVPB SCH (11:23)
[2019-07-06] MEDS: traZODone HCL 100 MG TABLET (FP) PO SCH (11:26)
[2019-07-06] MEDS: LOSARTAN POTASSIUM 25 MG TABLET PO SCH (11:27)
[2019-07-06] MEDS: PANTOPRAZOLE 20 MG TABLET (FP) PO SCH (11:27)
[2019-07-06] MEDS: ISOSORBIDE MONONITRATE 60 MG TAB.SR.24H (FP) PO SCH (11:27)
[2019-07-06] MEDS: FOLIC ACID 1 MG TABLET (FP) PO SCH (11:27)
[2019-07-06] MEDS: APIXABAN 5 MG TABLET PO SCH ×2 (11:27→21:45)
[2019-07-06] MEDS: predniSONE 10 MG TABLET (UD) PO SCH (11:27)
--- NOTE | 2019-07-06 11:27 | PN ---
Progress Note, Physician History of Present Illness: PULMONARY ALERT,-RESP DISTRESS,STILL C/O ABD DISCOMFORT - Current Medication List Current Medications: Active Medications Albuterol/Ipratropium (Duoneb -) 1 amp NEB Q6H PRN PRN Reason: SHORTNESS OF BREATH Last Admin: 07/06/19 08:03 Dose: 1 amp Apixaban (Eliquis -) 5 mg PO BID [facility] Last Admin: 07/05/19 21:37 Dose: 5 mg Budesonide/Formoterol Fumarate (Symbicort 80/4.5mcg -) 2 puff IH BID [facility] Last Admin: 07/05/19 21:38 Dose: 2 puff Digoxin (Lanoxin -) 0.125 mg PO DAILY [facility] Last Admin: 07/05/19 10:18 Dose: 0.125 mg Diphenhydramine HCl (Benadryl -) 25 mg PO Q6H PRN PRN Reason: FOR ITCHING Last Admin: 07/06/19 04:58 Dose: 25 mg Folic Acid (Folic Acid -) 1 mg PO DAILY [facility] Last Admin: 07/05/19 10:17 Dose: 1 mg Furosemide (Lasix -) 60 mg PO BID@0600,1400 [facility] Last Admin: 07/06/19 05:51 Dose: 60 mg Ceftriaxone Sodium 1 gm/ (Dextrose) 50 mls @ 100 mls/hr IVPB DAILY [facility] Last Admin: 07/05/19 10:19 Dose: 100 mls/hr Metronidazole (Flagyl 500mg Premixed Ivpb -) 500 mg in 100 mls @ 100 mls/hr IVPB Q8H-IV [facility] Last Admin: 07/06/19 02:22 Dose: 100 mls/hr Isosorbide Mononitrate (Imdur -) 60 mg PO DAILY [facility] Last Admin: 07/05/19 10:18 Dose: 60 mg Losartan Potassium (Cozaar -) 25 mg PO DAILY [facility] Last Admin: 07/05/19 10:17 Dose: 25 mg Montelukast Sodium (Singulair -) 10 mg PO HS [facility] Last Admin: 07/05/19 21:37 Dose: 10 mg Nystatin (Mycostatin Ointment -) 1 applic TP BID [facility] Last Admin: 07/05/19 21:38 Dose: 1 applic Ondansetron HCl (Zofran Injection) 4 mg IVPUSH Q6H PRN PRN Reason: NAUSEA AND/OR VOMITING Pantoprazole Sodium (Protonix -) 20 mg PO DAILY [facility] Last Admin: 07/05/19 10:18 Dose: 20 mg Polyethylene Glycol (Miralax (For Daily Use) -) 17 gm PO DAILY [facility] Last Admin: 07/05/19 10:28 Dose: Not Given Prednisone (Deltasone -) 10 mg PO DAILY [facility] Last Admin: 07/05/19 10:18 Dose: 10 mg Thiamine HCl (Vitamin B1 -) 100 mg PO DAILY [facility] Last Admin: 07/05/19 10:20 Dose: 100 mg Trazodone HCl (Desyrel -) 100 mg PO DAILY [facility] Last Admin: 07/05/19 10:17 Dose: 100 mg - Objective Vital Signs: Vital Signs Temperature 98 F 07/06/19 09:25 Pulse Rate 102 H 07/06/19 09:25 Respiratory Rate 22 H 07/06/19 09:25 Blood Pressure 134/80 07/06/19 09:25 O2 Sat by Pulse Oximetry (%) 96 07/05/19 21:00 Constitutional: Yes: Well Nourished, Calm Eyes: Yes: WNL HENT: Yes: WNL Neck: Yes: WNL Cardiovascular: Yes: Pulse Irregular, S1, S2 Respiratory: Yes: CTA Bilaterally Gastrointestinal: Yes: Normal Bowel Sounds, Soft Extremities: Yes: WNL Edema: Yes Labs: CBC, BMP 07/06/19 06:45 07/06/19 06:45 INR, PTT INR 1.34 (0.83-1.09) H 07/02/19 08:20 - ....Imaging Cat Scan: Image Reviewed Problem List - Problems (1) Abnormal liver function tests Code(s): R94.5 - ABNORMAL RESULTS OF LIVER FUNCTION STUDIES (2) CHF (congestive heart failure) Code(s): I50.9 - HEART FAILURE, UNSPECIFIED Qualifiers: Heart failure type: unspecified Heart failure chronicity: acute on chronic Qualified Code(s): I50.9 - Heart failure, unspecified (3) COPD (chronic obstructive pulmonary disease) Code(s): J44.9 - CHRONIC OBSTRUCTIVE PULMONARY DISEASE, UNSPECIFIED Qualifiers: COPD type: unspecified COPD Qualified Code(s): J44.9 - Chronic obstructive pulmonary disease, unspecified (4) Hyponatremia Code(s): E87.1 - HYPO-OSMOLALITY AND HYPONATREMIA (5) Acute on chronic diastolic CHF (congestive heart failure) Code(s): I50.33 - ACUTE ON CHRONIC DIASTOLIC (CONGESTIVE) HEART FAILURE (6) Atrial fibrillation Code(s): I48.91 - UNSPECIFIED ATRIAL FIBRILLATION Qualifiers: Atrial fibrillation type: persistent Qualified Code(s): I48.1 - Persistent atrial fibrillation (7) CAD (coronary artery disease) Code(s): I25.10 - ATHSCL HEART DISEASE OF [place] CORONARY ARTERY W/O ANG PCTRS Qualifiers: Coronary Disease-Associated Artery/Lesion type: [place] artery [place] vs. transplanted heart: [place] heart Associated angina: without angina Qualified Code(s): I25.10 - Atherosclerotic heart disease of [place] coronary artery without angina pectoris (8) Diabetes Code(s): E11.9 - TYPE 2 DIABETES MELLITUS WITHOUT COMPLICATIONS Qualifiers: Diabetes mellitus type: type 2 (9) Elevated LFTs Code(s): R94.5 - ABNORMAL RESULTS OF LIVER FUNCTION STUDIES (10) Shortness of breath Code(s): R06.02 - SHORTNESS OF BREATH Assessment/Plan ASSESSMENT/PLAN: Hypervolemic hyponatremia in the setting of poor solute intake, chronic alcoholism, and CHF improved HFrEF Transaminitis 2/2 to alcohol abuse and congestive hepatopathy Severe lv dysfunction Hx of COPD Permanent Atrial fibrillation OSAS HTN HLD Abdominal pain Lasix BID CPAP QHS O2 as needed Strict I & O Prednisone Singulair Daily weights Nyla TEJEDA
[2019-07-06] MEDS: THIAMINE HCL 100 MG TABLET (FP) PO SCH (11:28)
[2019-07-06] MEDS: BUDESONIDE/FORMETEROL FUMARATE 80/4.5 mcg INHALER IH SCH ×2 (11:29→21:46)
[2019-07-06] MEDS: DIGOXIN 0.125 MG TABLET (FP) PO SCH (11:33)
[2019-07-06] MEDS: NYSTATIN 100000 UNIT/GM TOPICAL OINTMENT 15 GM TUBE TP SCH ×2 (11:36→21:45)
--- NOTE | 2019-07-06 12:25 | PN ---
Progress Note, Physician History of Present Illness: Pt seen and examined at bedside. He feels that his breathing is improved today. - Current Medication List Current Medications: Active Medications Albuterol/Ipratropium (Duoneb -) 1 amp NEB Q6H PRN PRN Reason: SHORTNESS OF BREATH Last Admin: 07/06/19 08:03 Dose: 1 amp Apixaban (Eliquis -) 5 mg PO BID [facility] Last Admin: 07/06/19 11:27 Dose: 5 mg Budesonide/Formoterol Fumarate (Symbicort 80/4.5mcg -) 2 puff IH BID [facility] Last Admin: 07/06/19 11:29 Dose: 2 puff Digoxin (Lanoxin -) 0.125 mg PO DAILY [facility] Last Admin: 07/06/19 11:33 Dose: 0.125 mg Diphenhydramine HCl (Benadryl -) 25 mg PO Q6H PRN PRN Reason: FOR ITCHING Last Admin: 07/06/19 04:58 Dose: 25 mg Folic Acid (Folic Acid -) 1 mg PO DAILY [facility] Last Admin: 07/06/19 11:27 Dose: 1 mg Furosemide (Lasix -) 60 mg PO BID@0600,1400 [facility] Last Admin: 07/06/19 05:51 Dose: 60 mg Ceftriaxone Sodium 1 gm/ (Dextrose) 50 mls @ 100 mls/hr IVPB DAILY [facility] Last Admin: 07/06/19 11:23 Dose: 100 mls/hr Metronidazole (Flagyl 500mg Premixed Ivpb -) 500 mg in 100 mls @ 100 mls/hr IVPB Q8H-IV [facility] Last Admin: 07/06/19 11:27 Dose: 100 mls/hr Isosorbide Mononitrate (Imdur -) 60 mg PO DAILY [facility] Last Admin: 07/06/19 11:27 Dose: 60 mg Losartan Potassium (Cozaar -) 25 mg PO DAILY [facility] Last Admin: 07/06/19 11:27 Dose: 25 mg Montelukast Sodium (Singulair -) 10 mg PO HS [facility] Last Admin: 07/05/19 21:37 Dose: 10 mg Nystatin (Mycostatin Ointment -) 1 applic TP BID [facility] Last Admin: 07/06/19 11:36 Dose: 1 applic Ondansetron HCl (Zofran Injection) 4 mg IVPUSH Q6H PRN PRN Reason: NAUSEA AND/OR VOMITING Pantoprazole Sodium (Protonix -) 20 mg PO DAILY [facility] Last Admin: 07/06/19 11:27 Dose: 20 mg Polyethylene Glycol (Miralax (For Daily Use) -) 17 gm PO DAILY [facility] Last Admin: 07/05/19 10:28 Dose: Not Given Prednisone (Deltasone -) 10 mg PO DAILY [facility] Last Admin: 07/06/19 11:27 Dose: 10 mg Thiamine HCl (Vitamin B1 -) 100 mg PO DAILY [facility] Last Admin: 07/06/19 11:28 Dose: 100 mg Trazodone HCl (Desyrel -) 100 mg PO DAILY [facility] Last Admin: 07/06/19 11:26 Dose: 100 mg - Objective Vital Signs: Vital Signs Temperature 98 F 07/06/19 09:25 Pulse Rate 102 H 07/06/19 11:33 Respiratory Rate 22 H 07/06/19 09:25 Blood Pressure 134/80 07/06/19 09:25 O2 Sat by Pulse Oximetry (%) 96 07/05/19 21:00 Constitutional: Yes: Calm Eyes: Yes: Conjunctiva Clear HENT: Yes: Atraumatic Neck: Yes: Supple Cardiovascular: Yes: S1, S2 Respiratory: Yes: On Nasal O2 Gastrointestinal: Yes: Soft, Tenderness Genitourinary: Yes: WNL Musculoskeletal: Yes: WNL Edema: Yes Edema: LLE: 1+, RLE: 1+ Neurological: Yes: Oriented Psychiatric: Yes: Oriented Labs: CBC, BMP 07/06/19 06:45 07/06/19 06:45 INR, PTT INR 1.34 (0.83-1.09) H 07/02/19 08:20 Problem List - Problems (1) CHF (congestive heart failure) Code(s): I50.9 - HEART FAILURE, UNSPECIFIED Qualifiers: Heart failure type: unspecified Heart failure chronicity: acute on chronic Qualified Code(s): I50.9 - Heart failure, unspecified (2) Hyponatremia Code(s): E87.1 - HYPO-OSMOLALITY AND HYPONATREMIA Assessment/Plan Current Medications Generic Name Dose Route Start Last Admin Trade Name Freq PRN Reason Stop Dose Admin Albuterol/Ipratropium 1 amp 06/29/19 15:14 07/06/19 08:03 Duoneb - NEB 1 amp Q6H PRN Administration SHORTNESS OF BREATH Apixaban 5 mg 06/28/19 22:00 07/06/19 11:27 Eliquis - PO 5 mg BID [facility] Administration Budesonide/Formoterol Fumarate 2 puff 07/04/19 12:00 07/06/19 11:29 Symbicort 80/4.5mcg - IH 2 puff BID [facility] Administration Digoxin 0.125 mg 06/29/19 10:00 07/06/19 11:33 Lanoxin - PO 0.125 mg DAILY [facility] Administration Diphenhydramine HCl 25 mg 06/29/19 15:15 07/06/19 04:58 Benadryl - PO 25 mg Q6H PRN Administration FOR ITCHING Folic Acid 1 mg 06/29/19 10:00 07/06/19 11:27 Folic Acid - PO 1 mg DAILY [facility] Administration Furosemide 60 mg 07/03/19 06:00 07/06/19 05:51 Lasix - PO 60 mg BID@0600,1400 [facility] Administration Ceftriaxone Sodium 1 gm/ 50 mls @ 100 mls/hr 07/04/19 14:45 07/06/19 11:23 Dextrose IVPB 100 mls/hr DAILY [facility] Administration Metronidazole 500 mg in 100 mls @ 100 mls/hr 07/04/19 14:45 07/06/19 11:27 Flagyl 500mg Premixed Ivpb - IVPB 100 mls/hr Q8H-IV [facility] Administration Isosorbide Mononitrate 60 mg 06/29/19 10:00 07/06/19 11:27 Imdur - PO 60 mg DAILY [facility] Administration Losartan Potassium 25 mg 06/29/19 10:00 07/06/19 11:27 Cozaar - PO 25 mg DAILY [facility] Administration Montelukast Sodium 10 mg 06/28/19 22:00 07/05/19 21:37 Singulair - PO 10 mg HS [facility] Administration Nystatin 1 applic 06/28/19 23:45 07/06/19 11:36 Mycostatin Ointment - TP 1 applic BID [facility] Administration Ondansetron HCl 4 mg 06/28/19 14:28 Zofran Injection IVPUSH Q6H PRN NAUSEA AND/OR VOMITING Pantoprazole Sodium 20 mg 07/01/19 10:00 07/06/19 11:27 Protonix - PO 20 mg DAILY [facility] Administration Polyethylene Glycol 17 gm 07/03/19 14:00 07/05/19 10:28 Miralax (For Daily Use) - PO Not Given DAILY [facility] Prednisone 10 mg 06/29/19 10:00 07/06/19 11:27 Deltasone - PO 10 mg DAILY [facility] Administration Thiamine HCl 100 mg 06/29/19 10:00 07/06/19 11:28 Vitamin B1 - PO 100 mg DAILY [facility] Administration Trazodone HCl 100 mg 06/29/19 10:00 07/06/19 11:26 Desyrel - PO 100 mg DAILY [facility] Administration Impression 1. CHF 2. hyponatremia - hypervolemic 3. fluid overload 4. asthma 5. a-fib 6. DM Plan - volume status is improving - monitor lytes - cont lasix - sodium stable - hypervolemic hyponatremia from chf
--- NOTE | 2019-07-06 14:31 | PN ---
Progress Note, Physician Chief Complaint: loose BM watery abdominal pain - Current Medication List Current Medications: Active Medications Albuterol/Ipratropium (Duoneb -) 1 amp NEB Q6H PRN PRN Reason: SHORTNESS OF BREATH Last Admin: 07/06/19 08:03 Dose: 1 amp Apixaban (Eliquis -) 5 mg PO BID [facility] Last Admin: 07/06/19 11:27 Dose: 5 mg Budesonide/Formoterol Fumarate (Symbicort 80/4.5mcg -) 2 puff IH BID [facility] Last Admin: 07/06/19 11:29 Dose: 2 puff Digoxin (Lanoxin -) 0.125 mg PO DAILY [facility] Last Admin: 07/06/19 11:33 Dose: 0.125 mg Diphenhydramine HCl (Benadryl -) 25 mg PO Q6H PRN PRN Reason: FOR ITCHING Last Admin: 07/06/19 04:58 Dose: 25 mg Folic Acid (Folic Acid -) 1 mg PO DAILY [facility] Last Admin: 07/06/19 11:27 Dose: 1 mg Furosemide (Lasix -) 60 mg PO BID@0600,1400 [facility] Last Admin: 07/06/19 14:23 Dose: 60 mg Ceftriaxone Sodium 1 gm/ (Dextrose) 50 mls @ 100 mls/hr IVPB DAILY [facility] Last Admin: 07/06/19 11:23 Dose: 100 mls/hr Metronidazole (Flagyl 500mg Premixed Ivpb -) 500 mg in 100 mls @ 100 mls/hr IVPB Q8H-IV [facility] Last Admin: 07/06/19 11:27 Dose: 100 mls/hr Isosorbide Mononitrate (Imdur -) 60 mg PO DAILY [facility] Last Admin: 07/06/19 11:27 Dose: 60 mg Losartan Potassium (Cozaar -) 25 mg PO DAILY [facility] Last Admin: 07/06/19 11:27 Dose: 25 mg Montelukast Sodium (Singulair -) 10 mg PO HS [facility] Last Admin: 07/05/19 21:37 Dose: 10 mg Nystatin (Mycostatin Ointment -) 1 applic TP BID [facility] Last Admin: 07/06/19 11:36 Dose: 1 applic Ondansetron HCl (Zofran Injection) 4 mg IVPUSH Q6H PRN PRN Reason: NAUSEA AND/OR VOMITING Pantoprazole Sodium (Protonix -) 20 mg PO DAILY [facility] Last Admin: 07/06/19 11:27 Dose: 20 mg Polyethylene Glycol (Miralax (For Daily Use) -) 17 gm PO DAILY [facility] Last Admin: 07/05/19 10:28 Dose: Not Given Prednisone (Deltasone -) 10 mg PO DAILY [facility] Last Admin: 07/06/19 11:27 Dose: 10 mg Thiamine HCl (Vitamin B1 -) 100 mg PO DAILY [facility] Last Admin: 07/06/19 11:28 Dose: 100 mg Trazodone HCl (Desyrel -) 100 mg PO DAILY [facility] Last Admin: 07/06/19 11:26 Dose: 100 mg - Objective Vital Signs: Vital Signs Temperature 98 F 07/06/19 09:25 Pulse Rate 102 H 07/06/19 11:33 Respiratory Rate 22 H 07/06/19 09:25 Blood Pressure 134/80 07/06/19 09:25 O2 Sat by Pulse Oximetry (%) 96 07/05/19 21:00 Constitutional: Yes: Calm Neck: Yes: Trachea Midline Cardiovascular: Yes: Regular Rate and Rhythm, S1, S2 Respiratory: Yes: Diminished Gastrointestinal: Yes: Normal Bowel Sounds, Soft Edema: Yes Neurological: Yes: Alert, Oriented Labs: CBC, BMP 07/06/19 06:45 07/06/19 06:45 INR, PTT INR 1.34 (0.83-1.09) H 07/02/19 08:20 Problem List - Problems (1) Abdominal pain Assessment/Plan: gi on board clear liquid diet iv abx Code(s): R10.9 - UNSPECIFIED ABDOMINAL PAIN (2) Diverticulitis Code(s): K57.92 - DVTRCLI OF INTEST, PART UNSP, W/O PERF OR ABSCESS W/O BLEED
[2019-07-06] MEDS: MONTELUKAST NA 10 MG TABLET PO SCH (21:45)
[2019-07-07] MEDS: diphenhydrAMINE HCL 25 MG CAPSULE (FP) PO PRN ×2 (02:32→21:15)
[2019-07-07] MEDS: FUROSEMIDE 20 MG TABLET (FP) PO SCH ×2 (06:01→14:00)
[2019-07-07] MEDS ORDERED: DEXTROSE 5%-WATER - 50 ML IVPB ONE (10:11)
[2019-07-07] MEDS ORDERED: cefTRIAXone SODIUM 1 GM VIAL ONE (10:11)
[2019-07-07] MEDS: ISOSORBIDE MONONITRATE 60 MG TAB.SR.24H (FP) PO SCH (10:27)
[2019-07-07] MEDS: DIGOXIN 0.125 MG TABLET (FP) PO SCH (10:27)
[2019-07-07] MEDS: traZODone HCL 100 MG TABLET (FP) PO SCH (10:27)
[2019-07-07] MEDS: predniSONE 10 MG TABLET (UD) PO SCH (10:27)
[2019-07-07] MEDS: PANTOPRAZOLE 20 MG TABLET (FP) PO SCH (10:27)
[2019-07-07] MEDS: APIXABAN 5 MG TABLET PO SCH ×2 (10:27→21:15)
[2019-07-07] MEDS: LOSARTAN POTASSIUM 25 MG TABLET PO SCH (10:27)
[2019-07-07] MEDS: BUDESONIDE/FORMETEROL FUMARATE 80/4.5 mcg INHALER IH SCH ×2 (10:28→21:18)
[2019-07-07] MEDS: NYSTATIN 100000 UNIT/GM TOPICAL OINTMENT 15 GM TUBE TP SCH ×2 (10:28→21:23)
[2019-07-07] MEDS: FOLIC ACID 1 MG TABLET (FP) PO SCH (10:28)
[2019-07-07] MEDS: CEFTRIAXONE 1 GM in DEXTROSE 5%-WATER - 50 ML IVPB SCH (10:28)
[2019-07-07] MEDS: THIAMINE HCL 100 MG TABLET (FP) PO SCH (10:29)
[2019-07-07] MEDS: MORPHINE SULFATE 2 MG/ML VIAL IVPUSH PRN ×2 (11:06→21:15)
--- NOTE | 2019-07-07 14:37 | PN ---
Progress Note, Physician Chief Complaint: CHF Exacerbation History of Present Illness: Previous notes and events reviewed awake and alert NAD continue with LLQ pain 2 episodes of loose stool, stool culture pending - Current Medication List Current Medications: Active Medications Albuterol/Ipratropium (Duoneb -) 1 amp NEB Q6H PRN PRN Reason: SHORTNESS OF BREATH Last Admin: 07/06/19 08:03 Dose: 1 amp Apixaban (Eliquis -) 5 mg PO BID [facility] Last Admin: 07/07/19 10:27 Dose: 5 mg Budesonide/Formoterol Fumarate (Symbicort 80/4.5mcg -) 2 puff IH BID [facility] Last Admin: 07/07/19 10:28 Dose: 2 puff Digoxin (Lanoxin -) 0.125 mg PO DAILY [facility] Last Admin: 07/07/19 10:27 Dose: 0.125 mg Diphenhydramine HCl (Benadryl -) 25 mg PO Q6H PRN PRN Reason: FOR ITCHING Last Admin: 07/07/19 02:32 Dose: 25 mg Folic Acid (Folic Acid -) 1 mg PO DAILY [facility] Last Admin: 07/07/19 10:28 Dose: 1 mg Furosemide (Lasix -) 60 mg PO BID@0600,1400 [facility] Last Admin: 07/07/19 14:00 Dose: 60 mg Ceftriaxone Sodium 1 gm/ (Dextrose) 50 mls @ 100 mls/hr IVPB DAILY [facility] Last Admin: 07/07/19 10:28 Dose: 100 mls/hr Metronidazole (Flagyl 500mg Premixed Ivpb -) 500 mg in 100 mls @ 100 mls/hr IVPB Q8H-IV [facility] Last Admin: 07/07/19 11:02 Dose: 100 mls/hr Isosorbide Mononitrate (Imdur -) 60 mg PO DAILY [facility] Last Admin: 07/07/19 10:27 Dose: 60 mg Losartan Potassium (Cozaar -) 25 mg PO DAILY [facility] Last Admin: 07/07/19 10:27 Dose: 25 mg Montelukast Sodium (Singulair -) 10 mg PO HS [facility] Last Admin: 07/06/19 21:45 Dose: 10 mg Morphine Sulfate (Morphine Sulfate) 2 mg IVPUSH Q4H PRN PRN Reason: PAIN LEVEL 7 - 10 Last Admin: 07/07/19 11:06 Dose: 2 mg Nystatin (Mycostatin Ointment -) 1 applic TP BID [facility] Last Admin: 07/07/19 10:28 Dose: 1 applic Ondansetron HCl (Zofran Injection) 4 mg IVPUSH Q6H PRN PRN Reason: NAUSEA AND/OR VOMITING Pantoprazole Sodium (Protonix -) 20 mg PO DAILY [facility] Last Admin: 07/07/19 10:27 Dose: 20 mg Polyethylene Glycol (Miralax (For Daily Use) -) 17 gm PO DAILY [facility] Last Admin: 07/05/19 10:28 Dose: Not Given Prednisone (Deltasone -) 10 mg PO DAILY [facility] Last Admin: 07/07/19 10:27 Dose: 10 mg Thiamine HCl (Vitamin B1 -) 100 mg PO DAILY [facility] Last Admin: 07/07/19 10:29 Dose: 100 mg Trazodone HCl (Desyrel -) 100 mg PO DAILY [facility] Last Admin: 07/07/19 10:27 Dose: 100 mg - Objective Vital Signs: Vital Signs Temperature 97.3 F L 07/07/19 08:57 Pulse Rate 84 07/07/19 10:27 Respiratory Rate 20 07/07/19 08:57 Blood Pressure 129/72 07/07/19 08:57 O2 Sat by Pulse Oximetry (%) 97 07/06/19 21:00 Constitutional: Yes: No Distress, Calm, Obese Eyes: Yes: Conjunctiva Clear HENT: Yes: Atraumatic Cardiovascular: Yes: Regular Rate and Rhythm Respiratory: Yes: Regular, Diminished Gastrointestinal: Yes: Normal Bowel Sounds, Soft, Abdomen, Obese, Tenderness ( llq) Musculoskeletal: Yes: Muscle Weakness Extremities: Yes: WNL Edema: No Neurological: Yes: Alert, Oriented Psychiatric: Yes: Alert, Oriented Labs: CBC, BMP 07/06/19 06:45 07/06/19 06:45 INR, PTT INR 1.34 (0.83-1.09) H 07/02/19 08:20 Microbiology 07/05/19 16:00 Stool Salmonella/Shigella Culture - Preliminary NO ENTERIC PATHOGENS, 24 HOURS, ON PRIMARY PLATES 07/05/19 16:00 Stool Yersinia Culture - Preliminary NO ENTERIC PATHOGENS, 24 HOURS, ON PRIMARY PLATES 07/05/19 16:00 Stool Vibrio Culture - Final NO GROWTH OF VIBRIO SPECIES OBTAINED 07/05/19 16:00 Stool Escherichia coli 0157 Culture - Final NO GROWTH OF E COLI 0157 OBTAINED Problem List - Problems (1) Abnormal liver function tests Assessment/Plan: -GI on board -AST 33, ALT 41, Alk phos 158 -monitor LFTs daily -Abd US shows hepatomegaly with fatty infiltration vs hepatocellular disease Code(s): R94.5 - ABNORMAL RESULTS OF LIVER FUNCTION STUDIES (2) Hyponatremia Assessment/Plan: -Na 137 -monitor electrolyte daily -Renal on board - Code(s): E87.1 - HYPO-OSMOLALITY AND HYPONATREMIA (3) Atrial fibrillation Assessment/Plan: -Cardiology on board -Eliquis -Digoxin for rate control Code(s): I48.91 - UNSPECIFIED ATRIAL FIBRILLATION Qualifiers: Atrial fibrillation type: persistent Qualified Code(s): I48.1 - Persistent atrial fibrillation (4) CHF exacerbation Assessment/Plan: -Cardiology on board -Furosemide -Losartan -1L fluid restriction -strict I&Os -daily weights -dietary consult placed Code(s): I50.9 - HEART FAILURE, UNSPECIFIED Qualifiers: Heart failure type: unspecified Qualified Code(s): I50.9 - Heart failure, unspecified (5) Hypertension Assessment/Plan: -Losartan -low Na diet Code(s): I10 - ESSENTIAL (PRIMARY) HYPERTENSION Qualifiers: Hypertension type: essential hypertension Qualified Code(s): I10 - Essential (primary) hypertension (6) COPD (chronic obstructive pulmonary disease) Assessment/Plan: -Bronchodilators -Pulm on board -O2 via NC -keep SpO2 >90% -prednisone -Singulair -Abdominal CT scan shows 2cm pleural thickening or nodular consolidation RLL -CHest CT scan shows no focal lung consolidation or mass Code(s): J44.9 - CHRONIC OBSTRUCTIVE PULMONARY DISEASE, UNSPECIFIED Qualifiers: COPD type: unspecified COPD Qualified Code(s): J44.9 - Chronic obstructive pulmonary disease, unspecified (7) Abdominal pain Assessment/Plan: -CT scan shows sigmoid diverticulosis, possible chronic sigmoid diverticulitis -GI on board -clear liquid diet -stool culture collected for loose bowel movement Code(s): R10.9 - UNSPECIFIED ABDOMINAL PAIN (8) Diverticulitis Assessment/Plan: -CT scan shows sigmoid diverticulosis, possible chronic sigmoid diverticulitis -Ceftriaxone, flagyl -clear liquid diet Code(s): K57.92 - DVTRCLI OF INTEST, PART UNSP, W/O PERF OR ABSCESS W/O BLEED Assessment/Plan see problem list
--- NOTE | 2019-07-07 15:32 | PN ---
Progress Note, Physician History of Present Illness: Pt seen and examined at bedside. He is awake and alert. He denies shortness of breath. He has diarrhea. - Current Medication List Current Medications: Active Medications Albuterol/Ipratropium (Duoneb -) 1 amp NEB Q6H PRN PRN Reason: SHORTNESS OF BREATH Last Admin: 07/06/19 08:03 Dose: 1 amp Apixaban (Eliquis -) 5 mg PO BID [facility] Last Admin: 07/07/19 10:27 Dose: 5 mg Budesonide/Formoterol Fumarate (Symbicort 80/4.5mcg -) 2 puff IH BID [facility] Last Admin: 07/07/19 10:28 Dose: 2 puff Digoxin (Lanoxin -) 0.125 mg PO DAILY [facility] Last Admin: 07/07/19 10:27 Dose: 0.125 mg Diphenhydramine HCl (Benadryl -) 25 mg PO Q6H PRN PRN Reason: FOR ITCHING Last Admin: 07/07/19 02:32 Dose: 25 mg Folic Acid (Folic Acid -) 1 mg PO DAILY [facility] Last Admin: 07/07/19 10:28 Dose: 1 mg Furosemide (Lasix -) 60 mg PO BID@0600,1400 [facility] Last Admin: 07/07/19 14:00 Dose: 60 mg Ceftriaxone Sodium 1 gm/ (Dextrose) 50 mls @ 100 mls/hr IVPB DAILY [facility] Last Admin: 07/07/19 10:28 Dose: 100 mls/hr Metronidazole (Flagyl 500mg Premixed Ivpb -) 500 mg in 100 mls @ 100 mls/hr IVPB Q8H-IV [facility] Last Admin: 07/07/19 11:02 Dose: 100 mls/hr Isosorbide Mononitrate (Imdur -) 60 mg PO DAILY [facility] Last Admin: 07/07/19 10:27 Dose: 60 mg Losartan Potassium (Cozaar -) 25 mg PO DAILY [facility] Last Admin: 07/07/19 10:27 Dose: 25 mg Montelukast Sodium (Singulair -) 10 mg PO HS [facility] Last Admin: 07/06/19 21:45 Dose: 10 mg Morphine Sulfate (Morphine Sulfate) 2 mg IVPUSH Q4H PRN PRN Reason: PAIN LEVEL 7 - 10 Last Admin: 07/07/19 11:06 Dose: 2 mg Nystatin (Mycostatin Ointment -) 1 applic TP BID [facility] Last Admin: 07/07/19 10:28 Dose: 1 applic Ondansetron HCl (Zofran Injection) 4 mg IVPUSH Q6H PRN PRN Reason: NAUSEA AND/OR VOMITING Pantoprazole Sodium (Protonix -) 20 mg PO DAILY [facility] Last Admin: 07/07/19 10:27 Dose: 20 mg Polyethylene Glycol (Miralax (For Daily Use) -) 17 gm PO DAILY [facility] Last Admin: 07/05/19 10:28 Dose: Not Given Prednisone (Deltasone -) 10 mg PO DAILY [facility] Last Admin: 07/07/19 10:27 Dose: 10 mg Thiamine HCl (Vitamin B1 -) 100 mg PO DAILY [facility] Last Admin: 07/07/19 10:29 Dose: 100 mg Trazodone HCl (Desyrel -) 100 mg PO DAILY [facility] Last Admin: 07/07/19 10:27 Dose: 100 mg - Objective Vital Signs: Vital Signs Temperature 97.3 F L 07/07/19 08:57 Pulse Rate 84 07/07/19 10:27 Respiratory Rate 20 07/07/19 08:57 Blood Pressure 129/72 07/07/19 08:57 O2 Sat by Pulse Oximetry (%) 97 07/06/19 21:00 Constitutional: Yes: Calm Eyes: Yes: Conjunctiva Clear HENT: Yes: Atraumatic Cardiovascular: Yes: S1, S2 Respiratory: Yes: CTA Bilaterally Gastrointestinal: Yes: Soft, Abdomen, Obese Genitourinary: Yes: WNL Musculoskeletal: Yes: WNL Edema: Yes Edema: LLE: 1+, RLE: 1+ Neurological: Yes: Oriented Psychiatric: Yes: Oriented Labs: CBC, BMP 07/06/19 06:45 07/06/19 06:45 INR, PTT INR 1.34 (0.83-1.09) H 07/02/19 08:20 Problem List - Problems (1) CHF (congestive heart failure) Code(s): I50.9 - HEART FAILURE, UNSPECIFIED Qualifiers: Heart failure type: unspecified Heart failure chronicity: acute on chronic Qualified Code(s): I50.9 - Heart failure, unspecified (2) Hyponatremia Code(s): E87.1 - HYPO-OSMOLALITY AND HYPONATREMIA Assessment/Plan Current Medications Generic Name Dose Route Start Last Admin Trade Name Freq PRN Reason Stop Dose Admin Albuterol/Ipratropium 1 amp 06/29/19 15:14 07/06/19 08:03 Duoneb - NEB 1 amp Q6H PRN Administration SHORTNESS OF BREATH Apixaban 5 mg 06/28/19 22:00 07/07/19 10:27 Eliquis - PO 5 mg BID [facility] Administration Budesonide/Formoterol Fumarate 2 puff 07/04/19 12:00 07/07/19 10:28 Symbicort 80/4.5mcg - IH 2 puff BID [facility] Administration Digoxin 0.125 mg 06/29/19 10:00 07/07/19 10:27 Lanoxin - PO 0.125 mg DAILY [facility] Administration Diphenhydramine HCl 25 mg 06/29/19 15:15 07/07/19 02:32 Benadryl - PO 25 mg Q6H PRN Administration FOR ITCHING Folic Acid 1 mg 06/29/19 10:00 07/07/19 10:28 Folic Acid - PO 1 mg DAILY [facility] Administration Furosemide 60 mg 07/03/19 06:00 07/07/19 14:00 Lasix - PO 60 mg BID@0600,1400 [facility] Administration Ceftriaxone Sodium 1 gm/ 50 mls @ 100 mls/hr 07/04/19 14:45 07/07/19 10:28 Dextrose IVPB 100 mls/hr DAILY [facility] Administration Metronidazole 500 mg in 100 mls @ 100 mls/hr 07/04/19 14:45 07/07/19 11:02 Flagyl 500mg Premixed Ivpb - IVPB 100 mls/hr Q8H-IV [facility] Administration Isosorbide Mononitrate 60 mg 06/29/19 10:00 07/07/19 10:27 Imdur - PO 60 mg DAILY [facility] Administration Losartan Potassium 25 mg 06/29/19 10:00 07/07/19 10:27 Cozaar - PO 25 mg DAILY [facility] Administration Montelukast Sodium 10 mg 06/28/19 22:00 07/06/19 21:45 Singulair - PO 10 mg HS [facility] Administration Morphine Sulfate 2 mg 07/06/19 14:37 07/07/19 11:06 Morphine Sulfate IVPUSH 2 mg Q4H PRN Administration PAIN LEVEL 7 - 10 Nystatin 1 applic 06/28/19 23:45 07/07/19 10:28 Mycostatin Ointment - TP 1 applic BID [facility] Administration Ondansetron HCl 4 mg 06/28/19 14:28 Zofran Injection IVPUSH Q6H PRN NAUSEA AND/OR VOMITING Pantoprazole Sodium 20 mg 07/01/19 10:00 07/07/19 10:27 Protonix - PO 20 mg DAILY [facility] Administration Polyethylene Glycol 17 gm 07/03/19 14:00 07/05/19 10:28 Miralax (For Daily Use) - PO Not Given DAILY [facility] Prednisone 10 mg 06/29/19 10:00 07/07/19 10:27 Deltasone - PO 10 mg DAILY [facility] Administration Thiamine HCl 100 mg 06/29/19 10:00 07/07/19 10:29 Vitamin B1 - PO 100 mg DAILY [facility] Administration Trazodone HCl 100 mg 06/29/19 10:00 07/07/19 10:27 Desyrel - PO 100 mg DAILY [facility] Administration Impression 1. CHF 2. hyponatremia - hypervolemic 3. fluid overload 4. asthma 5. a-fib 6. DM Plan - cont po lasix - repeat labs in am - monitor renal function - sodium stable - rest per primary team
[2019-07-07] MEDS: MONTELUKAST NA 10 MG TABLET PO SCH (21:15)
[2019-07-08] MEDS: FUROSEMIDE 20 MG TABLET (FP) PO SCH ×2 (05:55→15:04)
--- NOTE | 2019-07-08 07:43 | PN ---
Progress Note, Physician - Current Medication List Current Medications: Active Medications Apixaban (Eliquis -) 5 mg PO BID [facility] Last Admin: 07/07/19 21:15 Dose: 5 mg Budesonide/Formoterol Fumarate (Symbicort 80/4.5mcg -) 2 puff IH BID [facility] Last Admin: 07/07/19 21:18 Dose: 2 puff Digoxin (Lanoxin -) 0.125 mg PO DAILY [facility] Last Admin: 07/07/19 10:27 Dose: 0.125 mg Diphenhydramine HCl (Benadryl -) 25 mg PO Q6H PRN PRN Reason: FOR ITCHING Last Admin: 07/07/19 21:15 Dose: 25 mg Folic Acid (Folic Acid -) 1 mg PO DAILY [facility] Last Admin: 07/07/19 10:28 Dose: 1 mg Furosemide (Lasix -) 60 mg PO BID@0600,1400 [facility] Last Admin: 07/08/19 05:55 Dose: 60 mg Ceftriaxone Sodium 1 gm/ (Dextrose) 50 mls @ 100 mls/hr IVPB DAILY [facility] Last Admin: 07/07/19 10:28 Dose: 100 mls/hr Metronidazole (Flagyl 500mg Premixed Ivpb -) 500 mg in 100 mls @ 100 mls/hr IVPB Q8H-IV [facility] Last Admin: 07/08/19 02:45 Dose: 100 mls/hr Isosorbide Mononitrate (Imdur -) 60 mg PO DAILY [facility] Last Admin: 07/07/19 10:27 Dose: 60 mg Losartan Potassium (Cozaar -) 25 mg PO DAILY [facility] Last Admin: 07/07/19 10:27 Dose: 25 mg Montelukast Sodium (Singulair -) 10 mg PO HS [facility] Last Admin: 07/07/19 21:15 Dose: 10 mg Morphine Sulfate (Morphine Sulfate) 2 mg IVPUSH Q4H PRN PRN Reason: PAIN LEVEL 7 - 10 Last Admin: 07/07/19 21:15 Dose: 2 mg Nystatin (Mycostatin Ointment -) 1 applic TP BID [facility] Last Admin: 07/07/19 21:23 Dose: 1 applic Ondansetron HCl (Zofran Injection) 4 mg IVPUSH Q6H PRN PRN Reason: NAUSEA AND/OR VOMITING Pantoprazole Sodium (Protonix -) 20 mg PO DAILY [facility] Last Admin: 07/07/19 10:27 Dose: 20 mg Polyethylene Glycol (Miralax (For Daily Use) -) 17 gm PO DAILY [facility] Last Admin: 07/05/19 10:28 Dose: Not Given Prednisone (Deltasone -) 10 mg PO DAILY [facility] Last Admin: 07/07/19 10:27 Dose: 10 mg Thiamine HCl (Vitamin B1 -) 100 mg PO DAILY [facility] Last Admin: 07/07/19 10:29 Dose: 100 mg Trazodone HCl (Desyrel -) 100 mg PO DAILY [facility] Last Admin: 07/07/19 10:27 Dose: 100 mg - Objective Vital Signs: Vital Signs Temperature 97.6 F 07/08/19 06:00 Pulse Rate 85 07/08/19 06:00 Respiratory Rate 18 07/08/19 06:00 Blood Pressure 138/71 07/08/19 06:00 O2 Sat by Pulse Oximetry (%) 96 07/07/19 21:00 Cardiovascular: Yes: S1, S2 Respiratory: Yes: Regular, CTA Bilaterally Gastrointestinal: Yes: Normal Bowel Sounds, Soft, Tenderness (llq) Labs: INR, PTT INR 1.34 (0.83-1.09) H 07/02/19 08:20 Assessment/Plan - Problems (1) Abnormal liver function tests Assessment/Plan: -GI on board -monitor LFTs daily -Abd US shows hepatomegaly with fatty infiltration vs hepatocellular disease Code(s): R94.5 - ABNORMAL RESULTS OF LIVER FUNCTION STUDIES (2) Hyponatremia Assessment/Plan: -Na 137 -monitor electrolyte daily -Renal on board - Code(s): E87.1 - HYPO-OSMOLALITY AND HYPONATREMIA (3) Atrial fibrillation Assessment/Plan: -Cardiology on board -Eliquis -Digoxin for rate control Code(s): I48.91 - UNSPECIFIED ATRIAL FIBRILLATION Qualifiers: Atrial fibrillation type: persistent Qualified Code(s): I48.1 - Persistent atrial fibrillation (4) CHF exacerbation Assessment/Plan: -Cardiology on board -Furosemide -Losartan -1L fluid restriction -strict I&Os -daily weights -dietary consult placed Code(s): I50.9 - HEART FAILURE, UNSPECIFIED Qualifiers: Heart failure type: unspecified Qualified Code(s): I50.9 - Heart failure, unspecified (5) Hypertension Assessment/Plan: -Losartan -low Na diet Code(s): I10 - ESSENTIAL (PRIMARY) HYPERTENSION Qualifiers: Hypertension type: essential hypertension Qualified Code(s): I10 - Essential (primary) hypertension (6) COPD (chronic obstructive pulmonary disease) Assessment/Plan: -Bronchodilators -Pulm on board -O2 via NC -keep SpO2 >90% -prednisone -Singulair -Abdominal CT scan shows 2cm pleural thickening or nodular consolidation RLL -CHest CT scan shows no focal lung consolidation or mass Code(s): J44.9 - CHRONIC OBSTRUCTIVE PULMONARY DISEASE, UNSPECIFIED Qualifiers: COPD type: unspecified COPD Qualified Code(s): J44.9 - Chronic obstructive pulmonary disease, unspecified (7) Abdominal pain Assessment/Plan: -CT scan shows sigmoid diverticulosis, possible chronic sigmoid diverticulitis -GI on board -CT SACN TODAY -clear liquid diet -stool culture collected for loose bowel movement Code(s): R10.9 - UNSPECIFIED ABDOMINAL PAIN (8) Diverticulitis Assessment/Plan: -CT scan shows sigmoid diverticulosis, possible chronic sigmoid diverticulitis -Ceftriaxone, flagyl day 10 -CT SCAN TODAY -clear liquid diet Code(s): K57.92 - DVTRCLI OF INTEST, PART UNSP, W/O PERF OR ABSCESS W/O BLEED
[2019-07-08 08:32] LABS: ALBUMIN 3.1 g/dl (3.4-5.0); BILIRUBIN,TOTAL 1.4 mg/dL (0.2-1); BLOOD UREA NITROGEN 11.9 mg/dL (7-18); CALCIUM 8.5 mg/dL (8.5-10.1); CREATININE 0.9 mg/dL (0.55-1.3); POTASSIUM 3.3 mmol/L (3.5-5.1); TOT PROT 7.5 g/dl (6.4-8.2)
[2019-07-08 08:57] LABS: BASO % 0.6 % (0-2.0); HEMATOCRIT 38.6 % (35.4-49); HEMOGLOBIN 12.6 GM/dL (11.7-16.9); LYMPH % 12.4 % (8-40); MCH 29.6 pg (25.7-33.7); MCHC 32.6 g/dl (32.0-35.9); MEAN CELL VOLUME 90.9 fl (80-96); MEAN PLT VOLUME 9.9 fl (7.5-11.1); MONO % 10.6 % (3.8-10.2); NEUT % 73.4 % (42.8-82.8); PLATELET COUNT 187 K/MM3 (134-434); RBC 4.25 M/mm3 (4.00-5.60); RDW 19.7 % (11.9-15.9); WHITE BLOOD COUNT 7.3 K/mm3 (4.0-10.0)
[2019-07-08] MEDS: DIGOXIN 0.125 MG TABLET (FP) PO SCH (09:21)
[2019-07-08] MEDS: diphenhydrAMINE HCL 25 MG CAPSULE (FP) PO PRN ×2 (09:21→21:00)
[2019-07-08] MEDS: PANTOPRAZOLE 20 MG TABLET (FP) PO SCH (09:21)
[2019-07-08] MEDS: ISOSORBIDE MONONITRATE 60 MG TAB.SR.24H (FP) PO SCH (09:22)
[2019-07-08] MEDS: traZODone HCL 100 MG TABLET (FP) PO SCH (09:22)
[2019-07-08] MEDS: APIXABAN 5 MG TABLET PO SCH ×2 (09:22→21:00)
[2019-07-08] MEDS: FOLIC ACID 1 MG TABLET (FP) PO SCH (09:22)
[2019-07-08] MEDS: predniSONE 10 MG TABLET (UD) PO SCH (09:22)
[2019-07-08] MEDS: LOSARTAN POTASSIUM 25 MG TABLET PO SCH (09:22)
[2019-07-08] MEDS: POLYETHYLENE GLYCOL 3350 119 GM BTL PO SCH (09:23)
[2019-07-08] MEDS: THIAMINE HCL 100 MG TABLET (FP) PO SCH (09:25)
[2019-07-08] MEDS: NYSTATIN 100000 UNIT/GM TOPICAL OINTMENT 15 GM TUBE TP SCH ×2 (09:25→21:00)
[2019-07-08] MEDS: BUDESONIDE/FORMETEROL FUMARATE 80/4.5 mcg INHALER IH SCH ×2 (09:26→21:07)
--- NOTE | 2019-07-08 09:41 | PN.GI ---
GI Progress Note Subjective: Pt seen/examined at bedside, still with mostly LLQ pain, minimal improvement overall. Diarrhea improved, one loose bm yesterday, no bms today. Asking to eat. - Objective Vital Signs: Vital Signs Temperature 97.9 F 07/08/19 09:00 Pulse Rate 99 H 07/08/19 09:21 Respiratory Rate 18 07/08/19 09:00 Blood Pressure 133/84 07/08/19 09:00 O2 Sat by Pulse Oximetry (%) 96 07/07/19 21:00 Constitutional: Well Nourished, No Distress, Calm Cardiovascular: Yes: WNL, Regular Rate and Rhythm Respiratory: Yes: WNL, Regular, CTA Bilaterally ...Palpate: Yes: Other (Abd soft, tender on palpation in LLQ, non distended, mild guarding, no rebound or rigidity) Labs: CBC, BMP 07/08/19 06:30 07/08/19 06:30 INR, PTT INR 1.34 (0.83-1.09) H 07/02/19 08:20 Problem List - Problems (1) Abnormal liver function tests Assessment/Plan: Likely multifactorial with mixed pattern possibly secondary to congestive hepatopathy vs medications/antibiotics in setting of underlying NAFLD vs etoh component. Does not appear to be obstructive process. Labs/imaging otherwise not consistent with advanced liver disease/cirrhosis. -Continue to monitor LFTs daily, medications possibly also contributing to fluctuations -HBV vaccination -Continue to avoid nonessential hepatotoxic medications Code(s): R94.5 - ABNORMAL RESULTS OF LIVER FUNCTION STUDIES (2) Abdominal pain Assessment/Plan: S/P CT abd/pelvis on 07/03/19 revealing possible chronic sigmoid diverticulitis. Pt on rocephin and flagyl, still with LLQ pain, overall minimal improvement. Diarrhea improved (stool studies negative so far). -Repeat CT abd/pelvis pending today to further evaluate -Continue IV antibiotics for now Code(s): R10.9 - UNSPECIFIED ABDOMINAL PAIN
[2019-07-08] MEDS ORDERED: DEXTROSE 5%-WATER - 50 ML IVPB ONE (10:38)
[2019-07-08] MEDS ORDERED: cefTRIAXone SODIUM 1 GM VIAL ONE (10:38)
[2019-07-08] MEDS: CEFTRIAXONE 1 GM in DEXTROSE 5%-WATER - 50 ML IVPB SCH (10:44)
[2019-07-08] MEDS ORDERED: POTASSIUM CHLORIDE TABS 20 MEQ TABLET.ER (FP) PO ONE (11:25)
--- NOTE | 2019-07-08 12:38 | PN ---
Progress Note (short form) - Note Progress Note: PULMONARY States breathing is improving. No cough or wheezing. Leg swelling improving. Wants to advance diet. Vital Signs Period Temp Pulse Resp BP Sys/Uribe Pulse Ox Last 24 Hr 97.6 F-98.8 F 80-99 18-18 123-138/68-84 95-96 Gen: NAD at rest Heart: RRR Lung: decreased breath sounds at the bases Abd: soft, nontender Ext: trace edema CBC, BMP 07/08/19 06:30 07/08/19 06:30 Active Medications Apixaban (Eliquis -) 5 mg PO BID [facility] Last Admin: 07/08/19 09:22 Dose: 5 mg Budesonide/Formoterol Fumarate (Symbicort 80/4.5mcg -) 2 puff IH BID [facility] Last Admin: 07/08/19 09:26 Dose: 2 puff Digoxin (Lanoxin -) 0.125 mg PO DAILY [facility] Last Admin: 07/08/19 09:21 Dose: 0.125 mg Diphenhydramine HCl (Benadryl -) 25 mg PO Q6H PRN PRN Reason: FOR ITCHING Last Admin: 07/08/19 09:21 Dose: 25 mg Folic Acid (Folic Acid -) 1 mg PO DAILY [facility] Last Admin: 07/08/19 09:22 Dose: 1 mg Furosemide (Lasix -) 60 mg PO BID@0600,1400 [facility] Last Admin: 07/08/19 05:55 Dose: 60 mg Ceftriaxone Sodium 1 gm/ (Dextrose) 50 mls @ 100 mls/hr IVPB DAILY [facility] Last Admin: 07/08/19 10:44 Dose: 100 mls/hr Metronidazole (Flagyl 500mg Premixed Ivpb -) 500 mg in 100 mls @ 100 mls/hr IVPB Q8H-IV [facility] Last Admin: 07/08/19 09:21 Dose: 100 mls/hr Isosorbide Mononitrate (Imdur -) 60 mg PO DAILY [facility] Last Admin: 07/08/19 09:22 Dose: 60 mg Losartan Potassium (Cozaar -) 25 mg PO DAILY [facility] Last Admin: 07/08/19 09:22 Dose: 25 mg Montelukast Sodium (Singulair -) 10 mg PO HS [facility] Last Admin: 07/07/19 21:15 Dose: 10 mg Morphine Sulfate (Morphine Sulfate) 2 mg IVPUSH Q4H PRN PRN Reason: PAIN LEVEL 7 - 10 Last Admin: 07/07/19 21:15 Dose: 2 mg Nystatin (Mycostatin Ointment -) 1 applic TP BID [facility] Last Admin: 07/08/19 09:25 Dose: 1 applic Ondansetron HCl (Zofran Injection) 4 mg IVPUSH Q6H PRN PRN Reason: NAUSEA AND/OR VOMITING Pantoprazole Sodium (Protonix -) 20 mg PO DAILY [facility] Last Admin: 07/08/19 09:21 Dose: 20 mg Polyethylene Glycol (Miralax (For Daily Use) -) 17 gm PO DAILY [facility] Last Admin: 07/08/19 09:23 Dose: Not Given Prednisone (Deltasone -) 10 mg PO DAILY [facility] Last Admin: 07/08/19 09:22 Dose: 10 mg Thiamine HCl (Vitamin B1 -) 100 mg PO DAILY [facility] Last Admin: 07/08/19 09:25 Dose: 100 mg Trazodone HCl (Desyrel -) 100 mg PO DAILY [facility] Last Admin: 07/08/19 09:22 Dose: 100 mg A/P Hyponatremia improved Acute on Chronic Systolic Heart Failure Acute Diverticulitis Elevated LFTs COPD Atrial Fibrillation JUAN CARLOS HTN Hyperlipdidemia - continue antibiotics - continue lasix - monitor urine output, creatinine - inhaled bronchodilators - rate controlled - continue anticoagulation - CPAP at night
--- NOTE | 2019-07-08 13:21 | PN ---
Progress Note, Physician History of Present Illness: Pt seen and examined at bedside. He feels that his breathing is improved. - Current Medication List Current Medications: Active Medications Apixaban (Eliquis -) 5 mg PO BID [facility] Last Admin: 07/08/19 09:22 Dose: 5 mg Budesonide/Formoterol Fumarate (Symbicort 80/4.5mcg -) 2 puff IH BID [facility] Last Admin: 07/08/19 09:26 Dose: 2 puff Digoxin (Lanoxin -) 0.125 mg PO DAILY [facility] Last Admin: 07/08/19 09:21 Dose: 0.125 mg Diphenhydramine HCl (Benadryl -) 25 mg PO Q6H PRN PRN Reason: FOR ITCHING Last Admin: 07/08/19 09:21 Dose: 25 mg Folic Acid (Folic Acid -) 1 mg PO DAILY [facility] Last Admin: 07/08/19 09:22 Dose: 1 mg Furosemide (Lasix -) 60 mg PO BID@0600,1400 [facility] Last Admin: 07/08/19 05:55 Dose: 60 mg Ceftriaxone Sodium 1 gm/ (Dextrose) 50 mls @ 100 mls/hr IVPB DAILY [facility] Last Admin: 07/08/19 10:44 Dose: 100 mls/hr Metronidazole (Flagyl 500mg Premixed Ivpb -) 500 mg in 100 mls @ 100 mls/hr IVPB Q8H-IV [facility] Last Admin: 07/08/19 09:21 Dose: 100 mls/hr Isosorbide Mononitrate (Imdur -) 60 mg PO DAILY [facility] Last Admin: 07/08/19 09:22 Dose: 60 mg Losartan Potassium (Cozaar -) 25 mg PO DAILY [facility] Last Admin: 07/08/19 09:22 Dose: 25 mg Montelukast Sodium (Singulair -) 10 mg PO HS [facility] Last Admin: 07/07/19 21:15 Dose: 10 mg Morphine Sulfate (Morphine Sulfate) 2 mg IVPUSH Q4H PRN PRN Reason: PAIN LEVEL 7 - 10 Last Admin: 07/07/19 21:15 Dose: 2 mg Nystatin (Mycostatin Ointment -) 1 applic TP BID [facility] Last Admin: 07/08/19 09:25 Dose: 1 applic Ondansetron HCl (Zofran Injection) 4 mg IVPUSH Q6H PRN PRN Reason: NAUSEA AND/OR VOMITING Pantoprazole Sodium (Protonix -) 20 mg PO DAILY [facility] Last Admin: 07/08/19 09:21 Dose: 20 mg Polyethylene Glycol (Miralax (For Daily Use) -) 17 gm PO DAILY [facility] Last Admin: 07/08/19 09:23 Dose: Not Given Prednisone (Deltasone -) 10 mg PO DAILY [facility] Last Admin: 07/08/19 09:22 Dose: 10 mg Thiamine HCl (Vitamin B1 -) 100 mg PO DAILY [facility] Last Admin: 07/08/19 09:25 Dose: 100 mg Trazodone HCl (Desyrel -) 100 mg PO DAILY [facility] Last Admin: 07/08/19 09:22 Dose: 100 mg - Objective Vital Signs: Vital Signs Temperature 97.9 F 07/08/19 09:00 Pulse Rate 99 H 07/08/19 09:21 Respiratory Rate 18 07/08/19 09:00 Blood Pressure 133/84 07/08/19 09:00 O2 Sat by Pulse Oximetry (%) 95 07/08/19 09:49 Constitutional: Yes: Calm Eyes: Yes: Conjunctiva Clear HENT: Yes: Atraumatic Neck: Yes: Supple Cardiovascular: Yes: S1, S2 Respiratory: Yes: Rhonchi Gastrointestinal: Yes: Soft, Abdomen, Obese Edema: Yes Edema: LLE: Trace, RLE: Trace Neurological: Yes: Oriented Psychiatric: Yes: Oriented Labs: CBC, BMP 07/08/19 06:30 07/08/19 06:30 INR, PTT INR 1.34 (0.83-1.09) H 07/02/19 08:20 Problem List - Problems (1) CHF (congestive heart failure) Code(s): I50.9 - HEART FAILURE, UNSPECIFIED Qualifiers: Heart failure type: unspecified Heart failure chronicity: acute on chronic Qualified Code(s): I50.9 - Heart failure, unspecified (2) Hyponatremia Code(s): E87.1 - HYPO-OSMOLALITY AND HYPONATREMIA Assessment/Plan Current Medications Generic Name Dose Route Start Last Admin Trade Name Freq PRN Reason Stop Dose Admin Apixaban 5 mg 06/28/19 22:00 07/08/19 09:22 Eliquis - PO 5 mg BID [facility] Administration Budesonide/Formoterol Fumarate 2 puff 07/04/19 12:00 07/08/19 09:26 Symbicort 80/4.5mcg - IH 2 puff BID [facility] Administration Digoxin 0.125 mg 06/29/19 10:00 07/08/19 09:21 Lanoxin - PO 0.125 mg DAILY [facility] Administration Diphenhydramine HCl 25 mg 06/29/19 15:15 07/08/19 09:21 Benadryl - PO 25 mg Q6H PRN Administration FOR ITCHING Folic Acid 1 mg 06/29/19 10:00 07/08/19 09:22 Folic Acid - PO 1 mg DAILY [facility] Administration Furosemide 60 mg 07/03/19 06:00 07/08/19 05:55 Lasix - PO 60 mg BID@0600,1400 [facility] Administration Ceftriaxone Sodium 1 gm/ 50 mls @ 100 mls/hr 07/04/19 14:45 07/08/19 10:44 Dextrose IVPB 100 mls/hr DAILY [facility] Administration Metronidazole 500 mg in 100 mls @ 100 mls/hr 07/04/19 14:45 07/08/19 09:21 Flagyl 500mg Premixed Ivpb - IVPB 100 mls/hr Q8H-IV [facility] Administration Isosorbide Mononitrate 60 mg 06/29/19 10:00 07/08/19 09:22 Imdur - PO 60 mg DAILY [facility] Administration Losartan Potassium 25 mg 06/29/19 10:00 07/08/19 09:22 Cozaar - PO 25 mg DAILY [facility] Administration Montelukast Sodium 10 mg 06/28/19 22:00 07/07/19 21:15 Singulair - PO 10 mg HS [facility] Administration Morphine Sulfate 2 mg 07/06/19 14:37 07/07/19 21:15 Morphine Sulfate IVPUSH 2 mg Q4H PRN Administration PAIN LEVEL 7 - 10 Nystatin 1 applic 06/28/19 23:45 07/08/19 09:25 Mycostatin Ointment - TP 1 applic BID [facility] Administration Ondansetron HCl 4 mg 06/28/19 14:28 Zofran Injection IVPUSH Q6H PRN NAUSEA AND/OR VOMITING Pantoprazole Sodium 20 mg 07/01/19 10:00 07/08/19 09:21 Protonix - PO 20 mg DAILY [facility] Administration Polyethylene Glycol 17 gm 07/03/19 14:00 07/08/19 09:23 Miralax (For Daily Use) - PO Not Given DAILY [facility] Prednisone 10 mg 06/29/19 10:00 07/08/19 09:22 Deltasone - PO 10 mg DAILY [facility] Administration Thiamine HCl 100 mg 06/29/19 10:00 07/08/19 09:25 Vitamin B1 - PO 100 mg DAILY [facility] Administration Trazodone HCl 100 mg 06/29/19 10:00 07/08/19 09:22 Desyrel - PO 100 mg DAILY [facility] Administration Impression 1. CHF 2. hyponatremia - hypervolemic 3. fluid overload 4. asthma 5. a-fib 6. DM Plan - cont with lasix - monitor volume status - replace potassium - monitor lytes - pt breathing comfortable on room air - sodium stable - rest per primary team
[2019-07-08 14:50] VITALS: BMI 34.1
[2019-07-08] MEDS: MORPHINE SULFATE 2 MG/ML VIAL IVPUSH PRN (20:58)
[2019-07-08] MEDS: MONTELUKAST NA 10 MG TABLET PO SCH (21:00)
[2019-07-09] MEDS: FUROSEMIDE 20 MG TABLET (FP) PO SCH ×2 (06:50→13:32)
[2019-07-09] MEDS ORDERED: POTASSIUM CHLORIDE TABS 20 MEQ TABLET.ER (FP) PO ONE (09:30)
[2019-07-09] MEDS ORDERED: cefTRIAXone SODIUM 1 GM VIAL ONE (09:46)
[2019-07-09] MEDS ORDERED: DEXTROSE 5%-WATER - 50 ML IVPB ONE (09:46)
[2019-07-09] MEDS: CEFTRIAXONE 1 GM in DEXTROSE 5%-WATER - 50 ML IVPB SCH (09:56)
[2019-07-09] MEDS: PANTOPRAZOLE 20 MG TABLET (FP) PO SCH (09:57)
[2019-07-09] MEDS: FOLIC ACID 1 MG TABLET (FP) PO SCH (09:57)
[2019-07-09] MEDS: traZODone HCL 100 MG TABLET (FP) PO SCH (09:57)
[2019-07-09] MEDS: predniSONE 10 MG TABLET (UD) PO SCH (09:57)
[2019-07-09] MEDS: DIGOXIN 0.125 MG TABLET (FP) PO SCH (09:57)
[2019-07-09] MEDS: LOSARTAN POTASSIUM 25 MG TABLET PO SCH (09:57)
[2019-07-09] MEDS: ISOSORBIDE MONONITRATE 60 MG TAB.SR.24H (FP) PO SCH (09:57)
[2019-07-09] MEDS: APIXABAN 5 MG TABLET PO SCH ×2 (09:57→23:40)
[2019-07-09] MEDS: POLYETHYLENE GLYCOL 3350 119 GM BTL PO SCH (09:58)
[2019-07-09] MEDS: THIAMINE HCL 100 MG TABLET (FP) PO SCH (09:58)
[2019-07-09] MEDS: BUDESONIDE/FORMETEROL FUMARATE 80/4.5 mcg INHALER IH SCH ×2 (09:58→23:40)
--- NOTE | 2019-07-09 10:19 | PN ---
Progress Note, Physician Chief Complaint: CHF Exacerbation History of Present Illness: Previous notes and events reviewed awake and alert NAD sts LLQ has improved denies diarrhea denies chest pain or SOB - Current Medication List Current Medications: Active Medications Apixaban (Eliquis -) 5 mg PO BID [facility] Last Admin: 07/09/19 09:57 Dose: 5 mg Budesonide/Formoterol Fumarate (Symbicort 80/4.5mcg -) 2 puff IH BID [facility] Last Admin: 07/09/19 09:58 Dose: 2 puff Digoxin (Lanoxin -) 0.125 mg PO DAILY [facility] Last Admin: 07/09/19 09:57 Dose: 0.125 mg Diphenhydramine HCl (Benadryl -) 25 mg PO Q6H PRN PRN Reason: FOR ITCHING Last Admin: 07/08/19 21:00 Dose: 25 mg Folic Acid (Folic Acid -) 1 mg PO DAILY [facility] Last Admin: 07/09/19 09:57 Dose: 1 mg Furosemide (Lasix -) 60 mg PO BID@0600,1400 [facility] Last Admin: 07/09/19 06:50 Dose: 60 mg Ceftriaxone Sodium 1 gm/ (Dextrose) 50 mls @ 100 mls/hr IVPB DAILY [facility] Last Admin: 07/09/19 09:56 Dose: 100 mls/hr Metronidazole (Flagyl 500mg Premixed Ivpb -) 500 mg in 100 mls @ 100 mls/hr IVPB Q8H-IV [facility] Last Admin: 07/09/19 02:39 Dose: 100 mls/hr Isosorbide Mononitrate (Imdur -) 60 mg PO DAILY [facility] Last Admin: 07/09/19 09:57 Dose: 60 mg Losartan Potassium (Cozaar -) 25 mg PO DAILY [facility] Last Admin: 07/09/19 09:57 Dose: 25 mg Montelukast Sodium (Singulair -) 10 mg PO HS [facility] Last Admin: 07/08/19 21:00 Dose: 10 mg Morphine Sulfate (Morphine Sulfate) 2 mg IVPUSH Q4H PRN PRN Reason: PAIN LEVEL 7 - 10 Last Admin: 07/08/19 20:58 Dose: 2 mg Nystatin (Mycostatin Ointment -) 1 applic TP BID [facility] Last Admin: 07/08/19 21:00 Dose: 1 applic Ondansetron HCl (Zofran Injection) 4 mg IVPUSH Q6H PRN PRN Reason: NAUSEA AND/OR VOMITING Pantoprazole Sodium (Protonix -) 20 mg PO DAILY [facility] Last Admin: 07/09/19 09:57 Dose: 20 mg Polyethylene Glycol (Miralax (For Daily Use) -) 17 gm PO DAILY [facility] Last Admin: 07/09/19 09:58 Dose: Not Given Prednisone (Deltasone -) 10 mg PO DAILY [facility] Last Admin: 07/09/19 09:57 Dose: 10 mg Thiamine HCl (Vitamin B1 -) 100 mg PO DAILY [facility] Last Admin: 07/09/19 09:58 Dose: 100 mg Trazodone HCl (Desyrel -) 100 mg PO DAILY [facility] Last Admin: 07/09/19 09:57 Dose: 100 mg - Objective Vital Signs: Vital Signs Temperature 98.4 F 07/09/19 06:00 Pulse Rate 88 07/09/19 09:57 Respiratory Rate 18 07/09/19 06:00 Blood Pressure 146/86 07/09/19 06:00 O2 Sat by Pulse Oximetry (%) 95 07/08/19 21:00 Constitutional: Yes: No Distress, Calm, Obese Eyes: Yes: Conjunctiva Clear HENT: Yes: Atraumatic Cardiovascular: Yes: Regular Rate and Rhythm Respiratory: Yes: Regular, Diminished Gastrointestinal: Yes: Normal Bowel Sounds, Soft, Abdomen, Obese, Tenderness ( llq) Musculoskeletal: Yes: Muscle Weakness Extremities: Yes: WNL Edema: No Neurological: Yes: Alert, Oriented Psychiatric: Yes: Alert, Oriented Labs: CBC, BMP 07/08/19 06:30 07/08/19 06:30 INR, PTT INR 1.34 (0.83-1.09) H 07/02/19 08:20 Microbiology 07/05/19 16:00 Stool Salmonella/Shigella Culture - Final NO GROWTH OF SALMONELLA OR SHIGELLA SPECIES OBTAINED 07/05/19 16:00 Stool Campylobacter Culture - Final NO GROWTH OF CAMPYLOBACTER SPECIES OBTAINED 07/05/19 16:00 Stool Yersinia Culture - Final NO GROWTH OF YERSINIA SPECIES OBTAINED 07/05/19 16:00 Stool Vibrio Culture - Final NO GROWTH OF VIBRIO SPECIES OBTAINED 07/05/19 16:00 Stool Escherichia coli 0157 Culture - Final NO GROWTH OF E COLI 0157 OBTAINED Problem List - Problems (1) Abnormal liver function tests Assessment/Plan: -GI on board -AST 27, ALT 33, Alk phos 166 -monitor LFTs daily -Abd US shows hepatomegaly with fatty infiltration vs hepatocellular disease Code(s): R94.5 - ABNORMAL RESULTS OF LIVER FUNCTION STUDIES (2) Hyponatremia Assessment/Plan: -Na 137 -monitor electrolyte daily -Renal on board - Code(s): E87.1 - HYPO-OSMOLALITY AND HYPONATREMIA (3) Atrial fibrillation Assessment/Plan: -Cardiology on board -Eliquis -Digoxin for rate control Code(s): I48.91 - UNSPECIFIED ATRIAL FIBRILLATION Qualifiers: Atrial fibrillation type: persistent Qualified Code(s): I48.1 - Persistent atrial fibrillation (4) CHF exacerbation Assessment/Plan: -Cardiology on board -Furosemide -Losartan -1L fluid restriction -strict I&Os -daily weights -dietary consult placed Code(s): I50.9 - HEART FAILURE, UNSPECIFIED Qualifiers: Heart failure type: unspecified Qualified Code(s): I50.9 - Heart failure, unspecified (5) Hypertension Assessment/Plan: -Losartan -low Na diet Code(s): I10 - ESSENTIAL (PRIMARY) HYPERTENSION Qualifiers: Hypertension type: essential hypertension Qualified Code(s): I10 - Essential (primary) hypertension (6) COPD (chronic obstructive pulmonary disease) Assessment/Plan: -Bronchodilators -Pulm on board -O2 via NC -keep SpO2 >90% -prednisone -Singulair -Abdominal CT scan shows 2cm pleural thickening or nodular consolidation RLL -CHest CT scan shows no focal lung consolidation or mass Code(s): J44.9 - CHRONIC OBSTRUCTIVE PULMONARY DISEASE, UNSPECIFIED Qualifiers: COPD type: unspecified COPD Qualified Code(s): J44.9 - Chronic obstructive pulmonary disease, unspecified (7) Abdominal pain Assessment/Plan: -CT scan shows sigmoid diverticulosis, possible chronic sigmoid diverticulitis -GI on board -stool culture neg Code(s): R10.9 - UNSPECIFIED ABDOMINAL PAIN (8) Diverticulitis Assessment/Plan: -CT scan shows sigmoid diverticulosis, possible chronic sigmoid diverticulitis -Ceftriaxone, flagyl -diet advanced -repeat CT scan shows colonic diverticulosis without CT evidence of acute diverticulitis Code(s): K57.92 - DVTRCLI OF INTEST, PART UNSP, W/O PERF OR ABSCESS W/O BLEED Assessment/Plan see problem list if tolerate diet D/C home tomorrow
--- NOTE | 2019-07-09 12:35 | PN ---
Progress Note, Physician History of Present Illness: PULMONARY NO DISTRESS,SOB IMPROVING,LESS ABD PAIN - Current Medication List Current Medications: Active Medications Apixaban (Eliquis -) 5 mg PO BID [facility] Last Admin: 07/09/19 09:57 Dose: 5 mg Budesonide/Formoterol Fumarate (Symbicort 80/4.5mcg -) 2 puff IH BID [facility] Last Admin: 07/09/19 09:58 Dose: 2 puff Digoxin (Lanoxin -) 0.125 mg PO DAILY [facility] Last Admin: 07/09/19 09:57 Dose: 0.125 mg Diphenhydramine HCl (Benadryl -) 25 mg PO Q6H PRN PRN Reason: FOR ITCHING Last Admin: 07/08/19 21:00 Dose: 25 mg Folic Acid (Folic Acid -) 1 mg PO DAILY [facility] Last Admin: 07/09/19 09:57 Dose: 1 mg Furosemide (Lasix -) 60 mg PO BID@0600,1400 [facility] Last Admin: 07/09/19 06:50 Dose: 60 mg Ceftriaxone Sodium 1 gm/ (Dextrose) 50 mls @ 100 mls/hr IVPB DAILY [facility] Last Admin: 07/09/19 09:56 Dose: 100 mls/hr Metronidazole (Flagyl 500mg Premixed Ivpb -) 500 mg in 100 mls @ 100 mls/hr IVPB Q8H-IV [facility] Last Admin: 07/09/19 10:28 Dose: 100 mls/hr Isosorbide Mononitrate (Imdur -) 60 mg PO DAILY [facility] Last Admin: 07/09/19 09:57 Dose: 60 mg Losartan Potassium (Cozaar -) 25 mg PO DAILY [facility] Last Admin: 07/09/19 09:57 Dose: 25 mg Montelukast Sodium (Singulair -) 10 mg PO HS [facility] Last Admin: 07/08/19 21:00 Dose: 10 mg Morphine Sulfate (Morphine Sulfate) 2 mg IVPUSH Q4H PRN PRN Reason: PAIN LEVEL 7 - 10 Last Admin: 07/08/19 20:58 Dose: 2 mg Nystatin (Mycostatin Ointment -) 1 applic TP BID [facility] Last Admin: 07/08/19 21:00 Dose: 1 applic Ondansetron HCl (Zofran Injection) 4 mg IVPUSH Q6H PRN PRN Reason: NAUSEA AND/OR VOMITING Pantoprazole Sodium (Protonix -) 20 mg PO DAILY [facility] Last Admin: 07/09/19 09:57 Dose: 20 mg Polyethylene Glycol (Miralax (For Daily Use) -) 17 gm PO DAILY [facility] Last Admin: 07/09/19 09:58 Dose: Not Given Prednisone (Deltasone -) 10 mg PO DAILY [facility] Last Admin: 07/09/19 09:57 Dose: 10 mg Thiamine HCl (Vitamin B1 -) 100 mg PO DAILY [facility] Last Admin: 07/09/19 09:58 Dose: 100 mg Trazodone HCl (Desyrel -) 100 mg PO DAILY [facility] Last Admin: 07/09/19 09:57 Dose: 100 mg - Objective Vital Signs: Vital Signs Temperature 98.4 F 07/09/19 06:00 Pulse Rate 88 07/09/19 09:57 Respiratory Rate 18 07/09/19 06:00 Blood Pressure 146/86 07/09/19 06:00 O2 Sat by Pulse Oximetry (%) 95 07/08/19 21:00 Constitutional: Yes: Well Nourished, Calm, Obese Eyes: Yes: WNL HENT: Yes: WNL Neck: Yes: WNL Cardiovascular: Yes: Pulse Irregular, S1, S2 Respiratory: Yes: Diminished Gastrointestinal: Yes: Normal Bowel Sounds, Soft Extremities: Yes: WNL Edema: Yes Labs: CBC, BMP 07/08/19 06:30 - ....Imaging Cat Scan: Report Reviewed Problem List - Problems (1) Abnormal liver function tests Code(s): R94.5 - ABNORMAL RESULTS OF LIVER FUNCTION STUDIES (2) CHF (congestive heart failure) Code(s): I50.9 - HEART FAILURE, UNSPECIFIED Qualifiers: Heart failure type: unspecified Heart failure chronicity: acute on chronic Qualified Code(s): I50.9 - Heart failure, unspecified (3) COPD (chronic obstructive pulmonary disease) Code(s): J44.9 - CHRONIC OBSTRUCTIVE PULMONARY DISEASE, UNSPECIFIED Qualifiers: COPD type: unspecified COPD Qualified Code(s): J44.9 - Chronic obstructive pulmonary disease, unspecified (4) Hyponatremia Code(s): E87.1 - HYPO-OSMOLALITY AND HYPONATREMIA (5) Acute on chronic diastolic CHF (congestive heart failure) Code(s): I50.33 - ACUTE ON CHRONIC DIASTOLIC (CONGESTIVE) HEART FAILURE (6) Atrial fibrillation Code(s): I48.91 - UNSPECIFIED ATRIAL FIBRILLATION Qualifiers: Atrial fibrillation type: persistent Qualified Code(s): I48.1 - Persistent atrial fibrillation (7) CAD (coronary artery disease) Code(s): I25.10 - ATHSCL HEART DISEASE OF [place] CORONARY ARTERY W/O ANG PCTRS Qualifiers: Coronary Disease-Associated Artery/Lesion type: [place] artery [place] vs. transplanted heart: [place] heart Associated angina: without angina Qualified Code(s): I25.10 - Atherosclerotic heart disease of [place] coronary artery without angina pectoris (8) Diabetes Code(s): E11.9 - TYPE 2 DIABETES MELLITUS WITHOUT COMPLICATIONS Qualifiers: Diabetes mellitus type: type 2 (9) Elevated LFTs Code(s): R94.5 - ABNORMAL RESULTS OF LIVER FUNCTION STUDIES (10) Shortness of breath Code(s): R06.02 - SHORTNESS OF BREATH Assessment/Plan ASSESSMENT/PLAN: Hypervolemic hyponatremia in the setting of poor solute intake, chronic alcoholism, and CHF improved HFrEF Transaminitis 2/2 to alcohol abuse and congestive hepatopathy Severe lv dysfunction Hx of COPD Permanent Atrial fibrillation OSAS HTN HLD Abdominal pain improving Lasix BID CPAP QHS O2 as needed Strict I & O Prednisone Singulair Daily weights Nyla TEJEDA
[2019-07-09] MEDS: NYSTATIN 100000 UNIT/GM TOPICAL OINTMENT 15 GM TUBE TP SCH ×2 (13:32→23:40)
--- NOTE | 2019-07-09 13:49 | PN ---
Progress Note, Physician History of Present Illness: Pt seen and examined at bedside. He feels abd pain is improved. He feels that his breathing is improved. - Current Medication List Current Medications: Active Medications Apixaban (Eliquis -) 5 mg PO BID [facility] Last Admin: 07/09/19 09:57 Dose: 5 mg Budesonide/Formoterol Fumarate (Symbicort 80/4.5mcg -) 2 puff IH BID [facility] Last Admin: 07/09/19 09:58 Dose: 2 puff Digoxin (Lanoxin -) 0.125 mg PO DAILY [facility] Last Admin: 07/09/19 09:57 Dose: 0.125 mg Diphenhydramine HCl (Benadryl -) 25 mg PO Q6H PRN PRN Reason: FOR ITCHING Last Admin: 07/08/19 21:00 Dose: 25 mg Folic Acid (Folic Acid -) 1 mg PO DAILY [facility] Last Admin: 07/09/19 09:57 Dose: 1 mg Furosemide (Lasix -) 60 mg PO BID@0600,1400 [facility] Last Admin: 07/09/19 13:32 Dose: 60 mg Ceftriaxone Sodium 1 gm/ (Dextrose) 50 mls @ 100 mls/hr IVPB DAILY [facility] Last Admin: 07/09/19 09:56 Dose: 100 mls/hr Metronidazole (Flagyl 500mg Premixed Ivpb -) 500 mg in 100 mls @ 100 mls/hr IVPB Q8H-IV [facility] Last Admin: 07/09/19 10:28 Dose: 100 mls/hr Isosorbide Mononitrate (Imdur -) 60 mg PO DAILY [facility] Last Admin: 07/09/19 09:57 Dose: 60 mg Losartan Potassium (Cozaar -) 25 mg PO DAILY [facility] Last Admin: 07/09/19 09:57 Dose: 25 mg Montelukast Sodium (Singulair -) 10 mg PO HS [facility] Last Admin: 07/08/19 21:00 Dose: 10 mg Morphine Sulfate (Morphine Sulfate) 2 mg IVPUSH Q4H PRN PRN Reason: PAIN LEVEL 7 - 10 Last Admin: 07/08/19 20:58 Dose: 2 mg Nystatin (Mycostatin Ointment -) 1 applic TP BID [facility] Last Admin: 07/09/19 13:32 Dose: 1 applic Ondansetron HCl (Zofran Injection) 4 mg IVPUSH Q6H PRN PRN Reason: NAUSEA AND/OR VOMITING Pantoprazole Sodium (Protonix -) 20 mg PO DAILY [facility] Last Admin: 07/09/19 09:57 Dose: 20 mg Polyethylene Glycol (Miralax (For Daily Use) -) 17 gm PO DAILY [facility] Last Admin: 07/09/19 09:58 Dose: Not Given Prednisone (Deltasone -) 10 mg PO DAILY [facility] Last Admin: 07/09/19 09:57 Dose: 10 mg Thiamine HCl (Vitamin B1 -) 100 mg PO DAILY [facility] Last Admin: 07/09/19 09:58 Dose: 100 mg Trazodone HCl (Desyrel -) 100 mg PO DAILY [facility] Last Admin: 07/09/19 09:57 Dose: 100 mg - Objective Vital Signs: Vital Signs Temperature 98.4 F 07/09/19 06:00 Pulse Rate 88 07/09/19 09:57 Respiratory Rate 18 07/09/19 06:00 Blood Pressure 146/86 07/09/19 06:00 O2 Sat by Pulse Oximetry (%) 95 07/08/19 21:00 Constitutional: Yes: Calm Eyes: Yes: Conjunctiva Clear HENT: Yes: Atraumatic Neck: Yes: Supple Cardiovascular: Yes: S1, S2 Respiratory: Yes: CTA Bilaterally Gastrointestinal: Yes: Normal Bowel Sounds, Soft Genitourinary: Yes: WNL Musculoskeletal: Yes: WNL Edema: Yes Edema: LLE: 1+, RLE: 1+ Neurological: Yes: Oriented Psychiatric: Yes: Oriented Labs: CBC, BMP 07/08/19 06:30 07/08/19 06:30 INR, PTT INR 1.34 (0.83-1.09) H 07/02/19 08:20 Problem List - Problems (1) CHF (congestive heart failure) Code(s): I50.9 - HEART FAILURE, UNSPECIFIED Qualifiers: Heart failure type: unspecified Heart failure chronicity: acute on chronic Qualified Code(s): I50.9 - Heart failure, unspecified (2) Hyponatremia Code(s): E87.1 - HYPO-OSMOLALITY AND HYPONATREMIA Assessment/Plan Current Medications Generic Name Dose Route Start Last Admin Trade Name Freq PRN Reason Stop Dose Admin Apixaban 5 mg 06/28/19 22:00 07/09/19 09:57 Eliquis - PO 5 mg BID [facility] Administration Budesonide/Formoterol Fumarate 2 puff 07/04/19 12:00 07/09/19 09:58 Symbicort 80/4.5mcg - IH 2 puff BID [facility] Administration Digoxin 0.125 mg 06/29/19 10:00 07/09/19 09:57 Lanoxin - PO 0.125 mg DAILY [facility] Administration Diphenhydramine HCl 25 mg 06/29/19 15:15 07/08/19 21:00 Benadryl - PO 25 mg Q6H PRN Administration FOR ITCHING Folic Acid 1 mg 06/29/19 10:00 07/09/19 09:57 Folic Acid - PO 1 mg DAILY [facility] Administration Furosemide 60 mg 07/03/19 06:00 07/09/19 13:32 Lasix - PO 60 mg BID@0600,1400 [facility] Administration Ceftriaxone Sodium 1 gm/ 50 mls @ 100 mls/hr 07/04/19 14:45 07/09/19 09:56 Dextrose IVPB 100 mls/hr DAILY [facility] Administration Metronidazole 500 mg in 100 mls @ 100 mls/hr 07/04/19 14:45 07/09/19 10:28 Flagyl 500mg Premixed Ivpb - IVPB 100 mls/hr Q8H-IV [facility] Administration Isosorbide Mononitrate 60 mg 06/29/19 10:00 07/09/19 09:57 Imdur - PO 60 mg DAILY [facility] Administration Losartan Potassium 25 mg 06/29/19 10:00 07/09/19 09:57 Cozaar - PO 25 mg DAILY [facility] Administration Montelukast Sodium 10 mg 06/28/19 22:00 07/08/19 21:00 Singulair - PO 10 mg HS [facility] Administration Morphine Sulfate 2 mg 07/06/19 14:37 07/08/19 20:58 Morphine Sulfate IVPUSH 2 mg Q4H PRN Administration PAIN LEVEL 7 - 10 Nystatin 1 applic 06/28/19 23:45 07/09/19 13:32 Mycostatin Ointment - TP 1 applic BID [facility] Administration Ondansetron HCl 4 mg 06/28/19 14:28 Zofran Injection IVPUSH Q6H PRN NAUSEA AND/OR VOMITING Pantoprazole Sodium 20 mg 07/01/19 10:00 07/09/19 09:57 Protonix - PO 20 mg DAILY [facility] Administration Polyethylene Glycol 17 gm 07/03/19 14:00 07/09/19 09:58 Miralax (For Daily Use) - PO Not Given DAILY [facility] Prednisone 10 mg 06/29/19 10:00 07/09/19 09:57 Deltasone - PO 10 mg DAILY [facility] Administration Thiamine HCl 100 mg 06/29/19 10:00 07/09/19 09:58 Vitamin B1 - PO 100 mg DAILY [facility] Administration Trazodone HCl 100 mg 06/29/19 10:00 07/09/19 09:57 Desyrel - PO 100 mg DAILY [facility] Administration Impression 1. CHF 2. hyponatremia - hypervolemic 3. fluid overload 4. asthma 5. a-fib 6. DM Plan - check bmp - cont lasix - 2 gram sodium diet - check mag as well - monitor lytes - pt breathing comfortable on room air
--- NOTE | 2019-07-09 17:15 | PN.GI ---
GI Progress Note Subjective: No acute events Abdominal pain improving but states still feeling sore - Objective Vital Signs: Vital Signs Temperature 98.6 F 07/09/19 15:49 Pulse Rate 96 H 07/09/19 15:49 Respiratory Rate 18 07/09/19 15:49 Blood Pressure 120/53 L 07/09/19 15:49 O2 Sat by Pulse Oximetry (%) 95 07/08/19 21:00 Constitutional: Calm Eyes: No: Sclera Icterus Cardiovascular: Yes: Pulse Irregular Respiratory: Yes: CTA Bilaterally ...Auscultate: Yes: Normoactive Bowel Sounds ...Palpate: Yes: Soft, Tenderness (minimal tenderness to palpation noted in left lower abdomen) ...Percussion: No: Tympanitic Neurological: Yes: Alert Labs: CBC, BMP 07/08/19 06:30 07/08/19 06:30 INR, PTT INR 1.34 (0.83-1.09) H 07/02/19 08:20 Hepatic Panel Total Bilirubin 1.4 mg/dL (0.2-1) H 07/08/19 06:30 Direct Bilirubin 1.3 mg/dL (0.0-0.2) H 06/28/19 05:24 AST 27 U/L (15-37) 07/08/19 06:30 ALT 33 U/L (13-61) 07/08/19 06:30 Alkaline Phosphatase 166 U/L (45-117) H 07/08/19 06:30 Albumin 3.1 g/dl (3.4-5.0) L 07/08/19 06:30 Problem List - Problems (1) Abnormal liver function tests Assessment/Plan: as noted in previous noted Code(s): R94.5 - ABNORMAL RESULTS OF LIVER FUNCTION STUDIES (2) Abdominal pain Assessment/Plan: CT scan performed yesterday without any acute pathology noted. Prior CT scan revealing ? chronic diverticulitis ? mild diverticultis Continue IV Abx and treat for total 10 days of Abx Low fiber diet Code(s): R10.9 - UNSPECIFIED ABDOMINAL PAIN
[2019-07-09] MEDS: diphenhydrAMINE HCL 25 MG CAPSULE (FP) PO PRN (23:40)
[2019-07-09] MEDS: MONTELUKAST NA 10 MG TABLET PO SCH (23:40)
[2019-07-10 05:02] LABS: HEMOGLOBIN 13.2 GM/dL (11.7-16.9); MCH 29.8 pg (25.7-33.7); RBC 4.43 M/mm3 (4.00-5.60)
[2019-07-10 05:34] LABS: BILIRUBIN,TOTAL 0.9 mg/dL (0.2-1); BLOOD UREA NITROGEN 13.6 mg/dL (7-18); CALCIUM 8.1 mg/dL (8.5-10.1); CREATININE 1.1 mg/dL (0.55-1.3); MAGNESIUM 1.8 mg/dL (1.8-2.4); TOT PROT 7.4 g/dl (6.4-8.2)
[2019-07-10] MEDS ORDERED: MAGNESIUM SULF 50% (8.12 MEQ/2 ML-1 GM VIAL) IVPB ONE (05:39)
[2019-07-10] MEDS: FUROSEMIDE 20 MG TABLET (FP) PO SCH ×2 (05:47→13:28)
[2019-07-10 06:01] LABS: HEMATOCRIT 39.9 % (35.4-49); MCHC 33.1 g/dl (32.0-35.9); WHITE BLOOD COUNT 8.8 K/mm3 (4.0-10.0)
[2019-07-10 06:02] LABS: MEAN PLT VOLUME 9.4 fl (7.5-11.1); PLATELET COUNT 206 K/MM3 (134-434); RDW 20.5 % (11.9-15.9)
[2019-07-10] MEDS: diphenhydrAMINE HCL 25 MG CAPSULE (FP) PO PRN ×2 (06:16→21:17)
[2019-07-10] MEDS ORDERED: cefTRIAXone SODIUM 1 GM VIAL ONE (09:36)
[2019-07-10] MEDS ORDERED: DEXTROSE 5%-WATER - 50 ML IVPB ONE (09:36)
[2019-07-10] MEDS: predniSONE 10 MG TABLET (UD) PO SCH (09:38)
[2019-07-10] MEDS: CEFTRIAXONE 1 GM in DEXTROSE 5%-WATER - 50 ML IVPB SCH (09:38)
[2019-07-10] MEDS: APIXABAN 5 MG TABLET PO SCH ×2 (09:39→21:17)
[2019-07-10] MEDS: FOLIC ACID 1 MG TABLET (FP) PO SCH (09:39)
[2019-07-10] MEDS: DIGOXIN 0.125 MG TABLET (FP) PO SCH (09:39)
[2019-07-10] MEDS: POLYETHYLENE GLYCOL 3350 119 GM BTL PO SCH (09:40)
[2019-07-10] MEDS: ISOSORBIDE MONONITRATE 60 MG TAB.SR.24H (FP) PO SCH (09:40)
[2019-07-10] MEDS: LOSARTAN POTASSIUM 25 MG TABLET PO SCH (09:40)
[2019-07-10] MEDS: traZODone HCL 100 MG TABLET (FP) PO SCH (09:40)
[2019-07-10] MEDS: PANTOPRAZOLE 20 MG TABLET (FP) PO SCH (09:40)
[2019-07-10] MEDS: BUDESONIDE/FORMETEROL FUMARATE 80/4.5 mcg INHALER IH SCH ×2 (09:41→21:17)
[2019-07-10] MEDS: THIAMINE HCL 100 MG TABLET (FP) PO SCH (09:41)
[2019-07-10] MEDS: NYSTATIN 100000 UNIT/GM TOPICAL OINTMENT 15 GM TUBE TP SCH ×2 (09:41→21:17)
--- NOTE | 2019-07-10 13:29 | DS ---
Physical Examination Vital Signs: Vital Signs Temperature 98.0 F 07/10/19 09:42 Pulse Rate 95 H 07/10/19 09:42 Respiratory Rate 20 07/10/19 09:42 Blood Pressure 145/82 07/10/19 09:42 O2 Sat by Pulse Oximetry (%) 95 07/10/19 09:00 Constitutional: Yes: No Distress, Calm, Obese Eyes: Yes: Conjunctiva Clear HENT: Yes: Atraumatic Cardiovascular: Yes: Regular Rate and Rhythm Respiratory: Yes: Regular, Diminished Gastrointestinal: Yes: Normal Bowel Sounds, Soft, Abdomen, Obese, Tenderness ( mild llq) Musculoskeletal: Yes: WNL Extremities: Yes: WNL Edema: No Neurological: Yes: Alert, Oriented Psychiatric: Yes: Alert, Oriented Labs: CBC, BMP 07/10/19 04:45 07/10/19 04:45 Discharge Summary Reason For Visit: CONGESTIVE HEART FAILURE/HYPONATREMIA Current Active Problems Abdominal pain (Acute) Abnormal liver function tests (Acute) CHF (congestive heart failure) (Acute) COPD (chronic obstructive pulmonary disease) (Acute) Diverticulitis (Acute) Hyponatremia (Acute) Non compliance with medical treatment (Acute) Hospital Course: Patient is a 64 CAD, CHF, COPD, Alcohol Abuse, Anemia. Patient presented to ER with complaints of nausea, vomiting, diarrhea, x 1 week. GI on board. CT scan showed diverticulitis and started on IV ABT. Abdominal pain improved and switched to PO ABT. Laboratory Tests 06/17/19 06/17/19 06/17/19 00:30 00:30 00:30 WBC Cancelled Corrected WBC (auto) Cancelled RBC Cancelled Hgb Cancelled Hct Cancelled MCV Cancelled MCH Cancelled MCHC Cancelled RDW Cancelled Plt Count Cancelled MPV Cancelled Absolute Neuts (auto) Cancelled Neutrophils % Cancelled Neutrophils % (Manual) Band Neutrophils % Lymphocytes % Cancelled Lymphocytes % (Manual) Monocytes % Cancelled Monocytes % (Manual) Eosinophils % Cancelled Eosinophils % (Manual) Basophils % Cancelled Basophils % (Manual) Myelocytes % (Man) Promyelocytes % (Man) Blast Cells % (Manual) Nucleated RBC % Cancelled Metamyelocytes Hypochromia Platelet Estimate Cancelled Platelet Comment Cancelled Polychromasia Poikilocytosis Anisocytosis Microcytosis Macrocytosis PT with INR INR VBG pH POC VBG pCO2 POC VBG pO2 VBG HCO3 VBG O2 Sat (Latha) VBG Base Excess Sodium 116 L* Potassium 4.6 Chloride 80 L Carbon Dioxide 22 Anion Gap 15 BUN 7.9 Creatinine 1.0 Est GFR (CKD-EPI)AfAm 91.13 Est GFR (CKD-EPI)NonAf 78.63 POC Glucometer Random Glucose 100 Serum Osmolality Calcium 8.2 L Phosphorus Magnesium Iron TIBC Iron Saturation Unsaturated IBC Ferritin Total Bilirubin 2.8 H Direct Bilirubin AST 125 H ALT 70 H Alkaline Phosphatase 295 H LD Total Creatine Kinase Cancelled Troponin I Cancelled B-Natriuretic Peptide Total Protein 7.6 Albumin 2.8 L Qmkcq-4-Upcqucubeln Lipase Urine Osmolality Ur Random Sodium Digoxin Alcohol, Quantitative RACHAEL Screen Smooth Musc &[employer] Intrp Hep A IgM Ab Confirm Hepatitis A Ab Total Hep Bs Antigen Hep Bs Antibody Hep B Core Total Ab Hep B Core IgM Ab Hepatitis Be Antibody Hepatitis Be Antigen HCV Quantitation HCV RNA log copies/mL 06/17/19 06/27/19 06/27/19 00:30 00:30 00:30 WBC Corrected WBC (auto) RBC Hgb Hct MCV MCH MCHC RDW Plt Count MPV Absolute Neuts (auto) Neutrophils % Neutrophils % (Manual) Band Neutrophils % Lymphocytes % Lymphocytes % (Manual) Monocytes % Monocytes % (Manual) Eosinophils % Eosinophils % (Manual) Basophils % Basophils % (Manual) Myelocytes % (Man) Promyelocytes % (Man) Blast Cells % (Manual) Nucleated RBC % Metamyelocytes Hypochromia Platelet Estimate Platelet Comment Polychromasia Poikilocytosis Anisocytosis Microcytosis Macrocytosis PT with INR INR VBG pH 7.35 POC VBG pCO2 38.1 L POC VBG pO2 VBG HCO3 20.6 L VBG O2 Sat (Latha) 34.6 L VBG Base Excess -4.0 L Sodium Potassium Chloride Carbon Dioxide Anion Gap BUN Creatinine Est GFR (CKD-EPI)AfAm Est GFR (CKD-EPI)NonAf POC Glucometer Random Glucose Serum Osmolality Calcium Phosphorus Magnesium Iron TIBC Iron Saturation Unsaturated IBC Ferritin Total Bilirubin Direct Bilirubin AST ALT Alkaline Phosphatase LD Total Creatine Kinase 121 Troponin I 0.02 B-Natriuretic Peptide 3996.4 H Total Protein Albumin Bwydk-0-Nhvyvgbhckz Lipase 184 Cancelled Urine Osmolality Ur Random Sodium Digoxin Alcohol, Quantitative RACHAEL Screen Smooth Musc &[employer] Intrp Hep A IgM Ab Confirm Hepatitis A Ab Total Hep Bs Antigen Hep Bs Antibody Hep B Core Total Ab Hep B Core IgM Ab Hepatitis Be Antibody Hepatitis Be Antigen HCV Quantitation HCV RNA log copies/mL 06/27/19 06/27/19 06/27/19 02:22 02:22 03:00 WBC 12.1 H Corrected WBC (auto) RBC 4.31 Hgb 13.2 Hct 39.8 MCV 92.4 MCH 30.7 MCHC 33.2 RDW 19.4 H Plt Count 211 D MPV 9.7 Absolute Neuts (auto) 9.9 H Neutrophils % 81.7 Neutrophils % (Manual) 79.6 Band Neutrophils % 0.0 Lymphocytes % 7.6 L Lymphocytes % (Manual) 10.7 D Monocytes % 7.7 Monocytes % (Manual) 7 Eosinophils % 2.5 D Eosinophils % (Manual) 1.9 D Basophils % 0.5 D Basophils % (Manual) 0.0 Myelocytes % (Man) 0 Promyelocytes % (Man) 0 Blast Cells % (Manual) 0 Nucleated RBC % 0 Metamyelocytes 0 Hypochromia 0 Platelet Estimate Normal Platelet Comment Polychromasia 0 Poikilocytosis 0 Anisocytosis 0 Microcytosis 0 Macrocytosis 0 PT with INR INR VBG pH POC VBG pCO2 POC VBG pO2 VBG HCO3 VBG O2 Sat (Latha) VBG Base Excess Sodium Potassium Chloride Carbon Dioxide Anion Gap BUN Creatinine Est GFR (CKD-EPI)AfAm Est GFR (CKD-EPI)NonAf POC Glucometer Random Glucose Serum Osmolality Calcium Phosphorus Magnesium Iron TIBC Iron Saturation Unsaturated IBC Ferritin Total Bilirubin Direct Bilirubin AST ALT Alkaline Phosphatase LD Total Creatine Kinase Troponin I B-Natriuretic Peptide Total Protein Albumin Hrwhu-8-Iumawgptrzd Lipase 133 Cancelled Urine Osmolality Ur Random Sodium Digoxin Alcohol, Quantitative 32.9 H RACHAEL Screen Smooth Musc &[employer] Intrp Hep A IgM Ab Confirm Hepatitis A Ab Total Hep Bs Antigen Hep Bs Antibody Hep B Core Total Ab Hep B Core IgM Ab Hepatitis Be Antibody Hepatitis Be Antigen HCV Quantitation HCV RNA log copies/mL 06/27/19 06/27/19 06/27/19 05:40 05:50 10:00 WBC Corrected WBC (auto) RBC Hgb Hct MCV MCH MCHC RDW Plt Count MPV Absolute Neuts (auto) Neutrophils % Neutrophils % (Manual) Band Neutrophils % Lymphocytes % Lymphocytes % (Manual) Monocytes % Monocytes % (Manual) Eosinophils % Eosinophils % (Manual) Basophils % Basophils % (Manual) Myelocytes % (Man) Promyelocytes % (Man) Blast Cells % (Manual) Nucleated RBC % Metamyelocytes Hypochromia Platelet Estimate Platelet Comment Polychromasia Poikilocytosis Anisocytosis Microcytosis Macrocytosis PT with INR INR VBG pH POC VBG pCO2 POC VBG pO2 VBG HCO3 VBG O2 Sat (Latha) VBG Base Excess Sodium 117 L* Potassium 4.2 Chloride 81 L Carbon Dioxide 23 Anion Gap 13 BUN 8.0 Creatinine 1.1 Est GFR (CKD-EPI)AfAm 81.22 Est GFR (CKD-EPI)NonAf 70.07 POC Glucometer Random Glucose 83 Serum Osmolality 247 L D Calcium 7.7 L Phosphorus Magnesium 1.2 L Iron TIBC Iron Saturation Unsaturated IBC Ferritin Total Bilirubin 2.9 H Direct Bilirubin 2.0 H AST 104 H ALT 60 Alkaline Phosphatase 263 H LD Total Creatine Kinase Troponin I 0.02 B-Natriuretic Peptide Total Protein 6.7 Albumin 2.5 L Rfjps-8-Sgyrotdccmt Lipase Urine Osmolality 104 L D Ur Random Sodium 13 L Digoxin < 0.06 L Alcohol, Quantitative RACHAEL Screen Smooth Musc &[employer] Intrp Hep A IgM Ab Confirm Hepatitis A Ab Total Hep Bs Antigen Hep Bs Antibody Hep B Core Total Ab Hep B Core IgM Ab Hepatitis Be Antibody Hepatitis Be Antigen HCV Quantitation HCV RNA log copies/mL 06/27/19 06/27/19 06/27/19 11:49 15:25 16:58 WBC Corrected WBC (auto) RBC Hgb Hct MCV MCH MCHC RDW Plt Count MPV Absolute Neuts (auto) Neutrophils % Neutrophils % (Manual) Band Neutrophils % Lymphocytes % Lymphocytes % (Manual) Monocytes % Monocytes % (Manual) Eosinophils % Eosinophils % (Manual) Basophils % Basophils % (Manual) Myelocytes % (Man) Promyelocytes % (Man) Blast Cells % (Manual) Nucleated RBC % Metamyelocytes Hypochromia Platelet Estimate Platelet Comment Polychromasia Poikilocytosis Anisocytosis Microcytosis Macrocytosis PT with INR INR VBG pH POC VBG pCO2 POC VBG pO2 VBG HCO3 VBG O2 Sat (Latha) VBG Base Excess Sodium 123 L Potassium 3.9 Chloride 86 L Carbon Dioxide 27 Anion Gap 11 BUN 9.3 Creatinine 1.0 Est GFR (CKD-EPI)AfAm 91.13 Est GFR (CKD-EPI)NonAf 78.63 POC Glucometer 92 117 Random Glucose 101 Serum Osmolality Calcium 7.8 L Phosphorus Magnesium Iron TIBC Iron Saturation Unsaturated IBC Ferritin Total Bilirubin Direct Bilirubin AST ALT Alkaline Phosphatase LD Total Creatine Kinase Troponin I B-Natriuretic Peptide Total Protein Albumin Gctua-9-Kcqidnarbqs Lipase Urine Osmolality Ur Random Sodium Digoxin Alcohol, Quantitative RACHAEL Screen Smooth Musc &[employer] Intrp Hep A IgM Ab Confirm Hepatitis A Ab Total Hep Bs Antigen Hep Bs Antibody Hep B Core Total Ab Hep B Core IgM Ab Hepatitis Be Antibody Hepatitis Be Antigen HCV Quantitation HCV RNA log copies/mL 06/27/19 06/27/19 06/28/19 20:46 21:40 05:24 WBC Corrected WBC (auto) RBC Hgb Hct MCV MCH MCHC RDW Plt Count MPV Absolute Neuts (auto) Neutrophils % Neutrophils % (Manual) Band Neutrophils % Lymphocytes % Lymphocytes % (Manual) Monocytes % Monocytes % (Manual) Eosinophils % Eosinophils % (Manual) Basophils % Basophils % (Manual) Myelocytes % (Man) Promyelocytes % (Man) Blast Cells % (Manual) Nucleated RBC % Metamyelocytes Hypochromia Platelet Estimate Platelet Comment Polychromasia Poikilocytosis Anisocytosis Microcytosis Macrocytosis PT with INR INR VBG pH POC VBG pCO2 POC VBG pO2 VBG HCO3 VBG O2 Sat (Latha) VBG Base Excess Sodium 125 L 126 L Potassium 4.0 3.8 Chloride 87 L 89 L Carbon Dioxide 28 28 Anion Gap 10 9 BUN 10.0 12.4 Creatinine 1.2 1.1 Est GFR (CKD-EPI)AfAm 73.11 81.22 Est GFR (CKD-EPI)NonAf 63.08 70.07 POC Glucometer 109 Random Glucose 102 97 Serum Osmolality Calcium 7.7 L 7.3 L Phosphorus 2.1 L Magnesium 1.4 L Iron TIBC Iron Saturation Unsaturated IBC Ferritin Total Bilirubin 1.8 H Direct Bilirubin 1.3 H AST 74 H ALT 53 Alkaline Phosphatase 251 H LD Total 490 H Creatine Kinase Troponin I B-Natriuretic Peptide Total Protein 5.8 L Albumin 2.1 L Sdmjn-8-Krciowzsste Lipase Urine Osmolality Ur Random Sodium Digoxin Alcohol, Quantitative RACHAEL Screen Smooth Musc &[employer] Intrp Hep A IgM Ab Confirm Hepatitis A Ab Total Hep Bs Antigen Hep Bs Antibody Hep B Core Total Ab Hep B Core IgM Ab Hepatitis Be Antibody Hepatitis Be Antigen HCV Quantitation HCV RNA log copies/mL 06/28/19 06/28/19 06/28/19 05:24 05:24 05:24 WBC 7.9 Corrected WBC (auto) RBC 3.43 L Hgb 10.7 L Hct 31.8 L D MCV 92.7 MCH 31.3 MCHC 33.8 RDW 20.3 H Plt Count 146 D MPV 9.3 Absolute Neuts (auto) Neutrophils % Neutrophils % (Manual) Band Neutrophils % Lymphocytes % Lymphocytes % (Manual) Monocytes % Monocytes % (Manual) Eosinophils % Eosinophils % (Manual) Basophils % Basophils % (Manual) Myelocytes % (Man) Promyelocytes % (Man) Blast Cells % (Manual) Nucleated RBC % Metamyelocytes Hypochromia Platelet Estimate Platelet Comment Polychromasia Poikilocytosis Anisocytosis Microcytosis Macrocytosis PT with INR INR VBG pH POC VBG pCO2 POC VBG pO2 VBG HCO3 VBG O2 Sat (Latha) VBG Base Excess Sodium Potassium Chloride Carbon Dioxide Anion Gap BUN Creatinine Est GFR (CKD-EPI)AfAm Est GFR (CKD-EPI)NonAf POC Glucometer Random Glucose Serum Osmolality Calcium Phosphorus Magnesium Iron 16 L TIBC 265 Iron Saturation 6 L Unsaturated IBC 249 Ferritin 119.1 Total Bilirubin Direct Bilirubin AST ALT Alkaline Phosphatase LD Total Creatine Kinase Troponin I B-Natriuretic Peptide Total Protein Albumin Rjqmd-2-Dsxtxjyoroc 191 Lipase Urine Osmolality Ur Random Sodium Digoxin Alcohol, Quantitative RACHAEL Screen Negative Smooth Musc &[employer] Intrp 12 Hep A IgM Ab Confirm Negative Hepatitis A Ab Total Negative Hep Bs Antigen Negative Hep Bs Antibody Non reactive Hep B Core Total Ab Negative Hep B Core IgM Ab Negative Hepatitis Be Antibody Negative Hepatitis Be Antigen Negative HCV Quantitation HCV RNA log copies/mL 06/28/19 06/28/19 06/29/19 05:24 05:31 07:05 WBC Corrected WBC (auto) RBC Hgb Hct MCV MCH MCHC RDW Plt Count MPV Absolute Neuts (auto) Neutrophils % Neutrophils % (Manual) Band Neutrophils % Lymphocytes % Lymphocytes % (Manual) Monocytes % Monocytes % (Manual) Eosinophils % Eosinophils % (Manual) Basophils % Basophils % (Manual) Myelocytes % (Man) Promyelocytes % (Man) Blast Cells % (Manual) Nucleated RBC % Metamyelocytes Hypochromia Platelet Estimate Platelet Comment Polychromasia Poikilocytosis Anisocytosis Microcytosis Macrocytosis PT with INR INR VBG pH POC VBG pCO2 POC VBG pO2 VBG HCO3 VBG O2 Sat (Latha) VBG Base Excess Sodium 132 L Potassium 3.9 Chloride 93 L Carbon Dioxide 32 Anion Gap 7 L BUN 17.5 Creatinine 1.2 Est GFR (CKD-EPI)AfAm 73.11 Est GFR (CKD-EPI)NonAf 63.08 POC Glucometer 99 Random Glucose 86 Serum Osmolality Calcium 7.4 L Phosphorus Magnesium Iron TIBC Iron Saturation Unsaturated IBC Ferritin Total Bilirubin Direct Bilirubin AST ALT Alkaline Phosphatase LD Total Creatine Kinase Troponin I B-Natriuretic Peptide Total Protein Albumin Wndxl-4-Cwifizhwlaw Lipase Urine Osmolality Ur Random Sodium Digoxin Alcohol, Quantitative RACHAEL Screen Smooth Musc &[employer] Intrp Hep A IgM Ab Confirm Hepatitis A Ab Total Hep Bs Antigen Hep Bs Antibody Hep B Core Total Ab Hep B Core IgM Ab Hepatitis Be Antibody Hepatitis Be Antigen HCV Quantitation Hcv not detected HCV RNA log copies/mL TNP 06/29/19 06/30/19 06/30/19 07:05 07:15 07:15 WBC 7.4 6.4 Corrected WBC (auto) RBC 3.79 L 3.58 L Hgb 11.8 11.1 L Hct 35.6 33.1 L MCV 93.8 92.5 MCH 31.0 31.1 MCHC 33.0 33.7 RDW 20.8 H 20.7 H Plt Count 151 142 MPV 9.2 9.0 Absolute Neuts (auto) Neutrophils % Neutrophils % (Manual) Band Neutrophils % Lymphocytes % Lymphocytes % (Manual) Monocytes % Monocytes % (Manual) Eosinophils % Eosinophils % (Manual) Basophils % Basophils % (Manual) Myelocytes % (Man) Promyelocytes % (Man) Blast Cells % (Manual) Nucleated RBC % Metamyelocytes Hypochromia Platelet Estimate Platelet Comment Polychromasia Poikilocytosis Anisocytosis Microcytosis Macrocytosis PT with INR INR VBG pH POC VBG pCO2 POC VBG pO2 VBG HCO3 VBG O2 Sat (Latha) VBG Base Excess Sodium 134 L Potassium 3.5 Chloride 94 L Carbon Dioxide 30 Anion Gap 10 BUN 22.4 H Creatinine 0.9 Est GFR (CKD-EPI)AfAm 103.51 Est GFR (CKD-EPI)NonAf 89.31 POC Glucometer Random Glucose 73 L Serum Osmolality Calcium 7.1 L Phosphorus Magnesium 1.2 L Iron TIBC Iron Saturation Unsaturated IBC Ferritin Total Bilirubin Direct Bilirubin AST ALT Alkaline Phosphatase LD Total Creatine Kinase Troponin I B-Natriuretic Peptide Total Protein Albumin Rspwd-9-Lxiqjimpypx Lipase Urine Osmolality Ur Random Sodium Digoxin Alcohol, Quantitative RACHAEL Screen Smooth Musc &[employer] Intrp Hep A IgM Ab Confirm Hepatitis A Ab Total Hep Bs Antigen Hep Bs Antibody Hep B Core Total Ab Hep B Core IgM Ab Hepatitis Be Antibody Hepatitis Be Antigen HCV Quantitation HCV RNA log copies/mL 07/01/19 07/01/19 07/02/19 07:30 07:30 08:20 WBC 5.7 7.8 Corrected WBC (auto) RBC 3.83 L 4.03 Hgb 11.7 12.4 Hct 36.4 37.5 MCV 95.1 93.0 MCH 30.6 30.7 MCHC 32.1 33.0 RDW 20.0 H 19.7 H Plt Count 128 L 174 D MPV 9.1 8.9 Absolute Neuts (auto) Neutrophils % Neutrophils % (Manual) Band Neutrophils % Lymphocytes % Lymphocytes % (Manual) Monocytes % Monocytes % (Manual) Eosinophils % Eosinophils % (Manual) Basophils % Basophils % (Manual) Myelocytes % (Man) Promyelocytes % (Man) Blast Cells % (Manual) Nucleated RBC % Metamyelocytes Hypochromia Platelet Estimate Platelet Comment Polychromasia Poikilocytosis Anisocytosis Microcytosis Macrocytosis PT with INR INR VBG pH POC VBG pCO2 POC VBG pO2 VBG HCO3 VBG O2 Sat (Latha) VBG Base Excess Sodium 138 Potassium 3.6 Chloride 96 L Carbon Dioxide 32 Anion Gap 10 BUN 25.7 H Creatinine 1.1 Est GFR (CKD-EPI)AfAm 81.22 Est GFR (CKD-EPI)NonAf 70.07 POC Glucometer Random Glucose 84 Serum Osmolality Calcium 7.2 L Phosphorus Magnesium Iron TIBC Iron Saturation Unsaturated IBC Ferritin Total Bilirubin 1.1 H Direct Bilirubin AST 56 H ALT 60 Alkaline Phosphatase 274 H LD Total Creatine Kinase Troponin I B-Natriuretic Peptide Total Protein 6.7 Albumin 2.5 L Xalbh-2-Mjhqbldujrg Lipase Urine Osmolality Ur Random Sodium Digoxin Alcohol, Quantitative RACHAEL Screen Smooth Musc &[employer] Intrp Hep A IgM Ab Confirm Hepatitis A Ab Total Hep Bs Antigen Hep Bs Antibody Hep B Core Total Ab Hep B Core IgM Ab Hepatitis Be Antibody Hepatitis Be Antigen HCV Quantitation HCV RNA log copies/mL 07/02/19 07/02/19 07/03/19 08:20 08:20 08:05 WBC 6.4 Corrected WBC (auto) RBC 3.76 L Hgb 11.4 L Hct 34.8 L MCV 92.3 MCH 30.3 MCHC 32.9 RDW 20.0 H Plt Count 137 D MPV 8.8 Absolute Neuts (auto) Neutrophils % Neutrophils % (Manual) Band Neutrophils % Lymphocytes % Lymphocytes % (Manual) Monocytes % Monocytes % (Manual) Eosinophils % Eosinophils % (Manual) Basophils % Basophils % (Manual) Myelocytes % (Man) Promyelocytes % (Man) Blast Cells % (Manual) Nucleated RBC % Metamyelocytes Hypochromia Platelet Estimate Platelet Comment Polychromasia Poikilocytosis Anisocytosis Microcytosis Macrocytosis PT with INR 15.80 H INR 1.34 H VBG pH POC VBG pCO2 POC VBG pO2 VBG HCO3 VBG O2 Sat (Latha) VBG Base Excess Sodium 138 Potassium 3.8 Chloride 94 L Carbon Dioxide 36 H Anion Gap 8 BUN 25.9 H Creatinine 1.2 Est GFR (CKD-EPI)AfAm 73.11 Est GFR (CKD-EPI)NonAf 63.08 POC Glucometer Random Glucose 94 Serum Osmolality Calcium 7.8 L Phosphorus Magnesium Iron TIBC Iron Saturation Unsaturated IBC Ferritin Total Bilirubin 1.2 H Direct Bilirubin AST 60 H ALT 64 H Alkaline Phosphatase 286 H LD Total Creatine Kinase Troponin I B-Natriuretic Peptide Total Protein 7.4 Albumin 2.8 L Feskt-7-Gqrtmhddevc Lipase Urine Osmolality Ur Random Sodium Digoxin Alcohol, Quantitative RACHAEL Screen Smooth Musc &[employer] Intrp Hep A IgM Ab Confirm Hepatitis A Ab Total Hep Bs Antigen Hep Bs Antibody Hep B Core Total Ab Hep B Core IgM Ab Hepatitis Be Antibody Hepatitis Be Antigen HCV Quantitation HCV RNA log copies/mL 07/03/19 07/04/19 07/04/19 08:05 06:30 06:30 WBC 5.9 Corrected WBC (auto) RBC 3.78 L Hgb 11.6 L Hct 34.9 L MCV 92.4 MCH 30.8 MCHC 33.3 RDW 19.9 H Plt Count 143 MPV 9.1 Absolute Neuts (auto) Neutrophils % Neutrophils % (Manual) Band Neutrophils % Lymphocytes % Lymphocytes % (Manual) Monocytes % Monocytes % (Manual) Eosinophils % Eosinophils % (Manual) Basophils % Basophils % (Manual) Myelocytes % (Man) Promyelocytes % (Man) Blast Cells % (Manual) Nucleated RBC % Metamyelocytes Hypochromia Platelet Estimate Platelet Comment Polychromasia Poikilocytosis Anisocytosis Microcytosis Macrocytosis PT with INR INR VBG pH POC VBG pCO2 POC VBG pO2 VBG HCO3 VBG O2 Sat (Latha) VBG Base Excess Sodium 138 138 Potassium 3.5 3.5 Chloride 96 L 96 L Carbon Dioxide 35 H 35 H Anion Gap 7 L 8 BUN 31.2 H 28.2 H Creatinine 1.0 1.1 Est GFR (CKD-EPI)AfAm 91.13 81.22 Est GFR (CKD-EPI)NonAf 78.63 70.07 POC Glucometer Random Glucose 85 104 Serum Osmolality Calcium 7.6 L 7.7 L Phosphorus Magnesium Iron TIBC Iron Saturation Unsaturated IBC Ferritin Total Bilirubin 1.0 1.1 H Direct Bilirubin AST 45 H 46 H ALT 51 51 Alkaline Phosphatase 241 H 230 H LD Total Creatine Kinase Troponin I B-Natriuretic Peptide Total Protein 6.6 6.5 Albumin 2.5 L 2.6 L Kuaju-1-Bfqogderjzu Lipase Urine Osmolality Ur Random Sodium Digoxin Alcohol, Quantitative RACHAEL Screen Smooth Musc &[employer] Intrp Hep A IgM Ab Confirm Hepatitis A Ab Total Hep Bs Antigen Hep Bs Antibody Hep B Core Total Ab Hep B Core IgM Ab Hepatitis Be Antibody Hepatitis Be Antigen HCV Quantitation HCV RNA log copies/mL 07/05/19 07/05/19 07/06/19 08:05 08:05 06:45 WBC 7.0 6.3 Corrected WBC (auto) RBC 4.10 3.79 L Hgb 12.5 11.6 L Hct 37.7 34.4 L MCV 91.8 90.7 MCH 30.5 30.5 MCHC 33.2 33.7 RDW 20.5 H 20.1 H Plt Count 153 146 MPV 9.2 9.5 Absolute Neuts (auto) Neutrophils % Neutrophils % (Manual) Band Neutrophils % Lymphocytes % Lymphocytes % (Manual) Monocytes % Monocytes % (Manual) Eosinophils % Eosinophils % (Manual) Basophils % Basophils % (Manual) Myelocytes % (Man) Promyelocytes % (Man) Blast Cells % (Manual) Nucleated RBC % Metamyelocytes Hypochromia Platelet Estimate Platelet Comment Polychromasia Poikilocytosis Anisocytosis Microcytosis Macrocytosis PT with INR INR VBG pH POC VBG pCO2 POC VBG pO2 VBG HCO3 VBG O2 Sat (Latha) VBG Base Excess Sodium 137 Potassium 3.9 Chloride 94 L Carbon Dioxide 34 H Anion Gap 8 BUN 20.6 H Creatinine 0.9 Est GFR (CKD-EPI)AfAm 103.51 Est GFR (CKD-EPI)NonAf 89.31 POC Glucometer Random Glucose 81 Serum Osmolality Calcium 7.8 L Phosphorus Magnesium Iron TIBC Iron Saturation Unsaturated IBC Ferritin Total Bilirubin 1.3 H Direct Bilirubin AST 42 H ALT 51 Alkaline Phosphatase 216 H LD Total Creatine Kinase Troponin I B-Natriuretic Peptide Total Protein 7.5 Albumin 3.0 L Qdgly-1-Zwxcuqdpovd Lipase Urine Osmolality Ur Random Sodium Digoxin Alcohol, Quantitative RACHAEL Screen Smooth Musc &[employer] Intrp Hep A IgM Ab Confirm Hepatitis A Ab Total Hep Bs Antigen Hep Bs Antibody Hep B Core Total Ab Hep B Core IgM Ab Hepatitis Be Antibody Hepatitis Be Antigen HCV Quantitation HCV RNA log copies/mL 07/06/19 07/08/19 07/08/19 06:45 06:30 06:30 WBC 7.3 Corrected WBC (auto) RBC 4.25 Hgb 12.6 Hct 38.6 MCV 90.9 MCH 29.6 MCHC 32.6 RDW 19.7 H Plt Count 187 D MPV 9.9 Absolute Neuts (auto) 5.4 Neutrophils % 73.4 Neutrophils % (Manual) Band Neutrophils % Lymphocytes % 12.4 D Lymphocytes % (Manual) Monocytes % 10.6 H Monocytes % (Manual) Eosinophils % 3.0 Eosinophils % (Manual) Basophils % 0.6 Basophils % (Manual) Myelocytes % (Man) Promyelocytes % (Man) Blast Cells % (Manual) Nucleated RBC % 0 Metamyelocytes Hypochromia Platelet Estimate Platelet Comment Polychromasia Poikilocytosis Anisocytosis Microcytosis Macrocytosis PT with INR INR VBG pH POC VBG pCO2 POC VBG pO2 VBG HCO3 VBG O2 Sat (Latha) VBG Base Excess Sodium 137 137 Potassium 3.5 3.3 L Chloride 96 L 95 L Carbon Dioxide 33 H 30 Anion Gap 9 12 BUN 13.7 11.9 Creatinine 0.9 0.9 Est GFR (CKD-EPI)AfAm 103.51 103.51 Est GFR (CKD-EPI)NonAf 89.31 89.31 POC Glucometer Random Glucose 85 72 L Serum Osmolality Calcium 8.0 L 8.5 Phosphorus Magnesium Iron TIBC Iron Saturation Unsaturated IBC Ferritin Total Bilirubin 1.1 H 1.4 H Direct Bilirubin AST 33 27 ALT 41 33 Alkaline Phosphatase 158 H 166 H LD Total Creatine Kinase Troponin I B-Natriuretic Peptide Total Protein 6.6 7.5 Albumin 2.7 L 3.1 L Mjpbg-8-Tzxcblqwnlg Lipase Urine Osmolality Ur Random Sodium Digoxin Alcohol, Quantitative RACHAEL Screen Smooth Musc &[employer] Intrp Hep A IgM Ab Confirm Hepatitis A Ab Total Hep Bs Antigen Hep Bs Antibody Hep B Core Total Ab Hep B Core IgM Ab Hepatitis Be Antibody Hepatitis Be Antigen HCV Quantitation HCV RNA log copies/mL 07/10/19 07/10/19 04:45 04:45 WBC 8.8 Corrected WBC (auto) RBC 4.43 Hgb 13.2 Hct 39.9 MCV 90.0 MCH 29.8 MCHC 33.1 RDW 20.5 H Plt Count 206 MPV 9.4 Absolute Neuts (auto) Neutrophils % Neutrophils % (Manual) Band Neutrophils % Lymphocytes % Lymphocytes % (Manual) Monocytes % Monocytes % (Manual) Eosinophils % Eosinophils % (Manual) Basophils % Basophils % (Manual) Myelocytes % (Man) Promyelocytes % (Man) Blast Cells % (Manual) Nucleated RBC % Metamyelocytes Hypochromia Platelet Estimate Platelet Comment Polychromasia Poikilocytosis Anisocytosis Microcytosis Macrocytosis PT with INR INR VBG pH POC VBG pCO2 POC VBG pO2 VBG HCO3 VBG O2 Sat (Latha) VBG Base Excess Sodium 137 Potassium 4.0 Chloride 101 Carbon Dioxide 28 Anion Gap 8 BUN 13.6 Creatinine 1.1 Est GFR (CKD-EPI)AfAm 81.22 Est GFR (CKD-EPI)NonAf 70.07 POC Glucometer Random Glucose 132 H Serum Osmolality Calcium 8.1 L Phosphorus Magnesium 1.8 Iron TIBC Iron Saturation Unsaturated IBC Ferritin Total Bilirubin 0.9 Direct Bilirubin AST 29 ALT 26 Alkaline Phosphatase 177 H LD Total Creatine Kinase Troponin I B-Natriuretic Peptide Total Protein 7.4 Albumin 3.0 L Ywdnt-9-Asrtobaphbs Lipase Urine Osmolality Ur Random Sodium Digoxin Alcohol, Quantitative RACHAEL Screen Smooth Musc &[employer] Intrp Hep A IgM Ab Confirm Hepatitis A Ab Total Hep Bs Antigen Hep Bs Antibody Hep B Core Total Ab Hep B Core IgM Ab Hepatitis Be Antibody Hepatitis Be Antigen HCV Quantitation HCV RNA log copies/mL Active Medications Apixaban (Eliquis -) 5 mg PO BID [facility] Last Admin: 07/10/19 09:39 Dose: 5 mg Budesonide/Formoterol Fumarate (Symbicort 80/4.5mcg -) 2 puff IH BID [facility] Last Admin: 07/10/19 09:41 Dose: 2 puff Digoxin (Lanoxin -) 0.125 mg PO DAILY [facility] Last Admin: 07/10/19 09:39 Dose: 0.125 mg Diphenhydramine HCl (Benadryl -) 25 mg PO Q6H PRN PRN Reason: FOR ITCHING Last Admin: 07/10/19 06:16 Dose: 25 mg Folic Acid (Folic Acid -) 1 mg PO DAILY [facility] Last Admin: 07/10/19 09:39 Dose: 1 mg Furosemide (Lasix -) 60 mg PO BID@0600,1400 [facility] Last Admin: 07/10/19 13:28 Dose: 60 mg Ceftriaxone Sodium 1 gm/ (Dextrose) 50 mls @ 100 mls/hr IVPB DAILY [facility] Last Admin: 07/10/19 09:38 Dose: 100 mls/hr Metronidazole (Flagyl 500mg Premixed Ivpb -) 500 mg in 100 mls @ 100 mls/hr IVPB Q8H-IV [facility] Last Admin: 07/10/19 10:18 Dose: 100 mls/hr Isosorbide Mononitrate (Imdur -) 60 mg PO DAILY [facility] Last Admin: 07/10/19 09:40 Dose: 60 mg Losartan Potassium (Cozaar -) 25 mg PO DAILY [facility] Last Admin: 07/10/19 09:40 Dose: 25 mg Montelukast Sodium (Singulair -) 10 mg PO HS [facility] Last Admin: 07/09/19 23:40 Dose: 10 mg Nystatin (Mycostatin Ointment -) 1 applic TP BID [facility] Last Admin: 07/10/19 09:41 Dose: 1 applic Ondansetron HCl (Zofran Injection) 4 mg IVPUSH Q6H PRN PRN Reason: NAUSEA AND/OR VOMITING Pantoprazole Sodium (Protonix -) 20 mg PO DAILY [facility] Last Admin: 07/10/19 09:40 Dose: 20 mg Polyethylene Glycol (Miralax (For Daily Use) -) 17 gm PO DAILY [facility] Last Admin: 07/10/19 09:40 Dose: Not Given Prednisone (Deltasone -) 10 mg PO DAILY [facility] Last Admin: 07/10/19 09:38 Dose: 10 mg Thiamine HCl (Vitamin B1 -) 100 mg PO DAILY [facility] Last Admin: 07/10/19 09:41 Dose: 100 mg Trazodone HCl (Desyrel -) 100 mg PO DAILY [facility] Last Admin: 07/10/19 09:40 Dose: 100 mg Microbiology 07/05/19 16:00 Stool Salmonella/Shigella Culture - Final NO GROWTH OF SALMONELLA OR SHIGELLA SPECIES OBTAINED 07/05/19 16:00 Stool Campylobacter Culture - Final NO GROWTH OF CAMPYLOBACTER SPECIES OBTAINED 07/05/19 16:00 Stool Yersinia Culture - Final NO GROWTH OF YERSINIA SPECIES OBTAINED 07/05/19 16:00 Stool Vibrio Culture - Final NO GROWTH OF VIBRIO SPECIES OBTAINED 07/05/19 16:00 Stool Escherichia coli 0157 Culture - Final NO GROWTH OF E COLI 0157 OBTAINED Condition: Stable - Instructions Diet, Activity, Other Instructions: follow up with PMD in 1 week follow up with GI Dr Lee continue with antibiotics as prescribed continue with medication regimen low Na diet 1L fluid restriction return to ER if develop severe pain, respiratory distress, chest pain, nausea/ vomiting Referrals: Devang Romano DO [Staff Physician] - Jessica Wooten MD [Primary Care Provider] - Toribio Mix MD [Staff Physician] - Disposition: HOME - Home Medications Comprehensive Discharge Medication List: Ambulatory Orders Montelukast Na [Singulair -] 10 mg PO HS tablet 05/29/18 Albuterol 2.5/Ipratropium 0.5 [Duoneb -] 1 amp NEB Q6H PRN amp 09/03/18 Atorvastatin Ca [Lipitor] 40 mg PO HS tablet 09/03/18 Hydrocortisone 0.5% Ointment [Hytone 0.5% Ointment -] 1 applic TP BID PRN tube 09/03/18 Insulin Sliding Scale [Novolog Vial Sliding Scale -] 1 vial SQ ACHS units 09/03 Isosorbide Mononitrate [Imdur -] 60 mg PO DAILY tab.sr.24h 09/03/18 Furosemide [Lasix -] 40 mg PO BID@0600,1400 09/24/18 Acetaminophen [Tylenol .Regular Strength -] 650 mg PO Q6H PRN tablet 09/30/18 Apixaban [Eliquis -] 5 mg PO BID #30 tablet MDD 2 12/04/18 Digoxin [Lanoxin -] 0.125 mg PO DAILY #30 tablet MDD 1 12/04/18 Losartan Potassium [Cozaar -] 25 mg PO DAILY #30 tablet MDD 1 12/04/18 hydrOXYzine HCL [Atarax -] 25 mg PO Q6H PRN tablet 12/04/18 Insulin Glargine,Hum.rec.anlog [Basaglar [place] U-100] 34 unit SQ HS 06/27/19 predniSONE [Deltasone -] 10 mg PO DAILY 06/27/19 traZODone HCL [Trazodone HCl] 100 mg PO DAILY 06/27/19
--- NOTE | 2019-07-10 14:17 | PN ---
Progress Note, Physician History of Present Illness: PULMONARY ALERT,OOB-CHAIR,COMFORTABLE,-SOB,MIN COUGH - Current Medication List Current Medications: Active Medications Apixaban (Eliquis -) 5 mg PO BID [facility] Last Admin: 07/10/19 09:39 Dose: 5 mg Budesonide/Formoterol Fumarate (Symbicort 80/4.5mcg -) 2 puff IH BID [facility] Last Admin: 07/10/19 09:41 Dose: 2 puff Digoxin (Lanoxin -) 0.125 mg PO DAILY [facility] Last Admin: 07/10/19 09:39 Dose: 0.125 mg Diphenhydramine HCl (Benadryl -) 25 mg PO Q6H PRN PRN Reason: FOR ITCHING Last Admin: 07/10/19 06:16 Dose: 25 mg Folic Acid (Folic Acid -) 1 mg PO DAILY [facility] Last Admin: 07/10/19 09:39 Dose: 1 mg Furosemide (Lasix -) 60 mg PO BID@0600,1400 [facility] Last Admin: 07/10/19 13:28 Dose: 60 mg Ceftriaxone Sodium 1 gm/ (Dextrose) 50 mls @ 100 mls/hr IVPB DAILY [facility] Last Admin: 07/10/19 09:38 Dose: 100 mls/hr Metronidazole (Flagyl 500mg Premixed Ivpb -) 500 mg in 100 mls @ 100 mls/hr IVPB Q8H-IV [facility] Last Admin: 07/10/19 10:18 Dose: 100 mls/hr Isosorbide Mononitrate (Imdur -) 60 mg PO DAILY [facility] Last Admin: 07/10/19 09:40 Dose: 60 mg Losartan Potassium (Cozaar -) 25 mg PO DAILY [facility] Last Admin: 07/10/19 09:40 Dose: 25 mg Montelukast Sodium (Singulair -) 10 mg PO HS [facility] Last Admin: 07/09/19 23:40 Dose: 10 mg Nystatin (Mycostatin Ointment -) 1 applic TP BID [facility] Last Admin: 07/10/19 09:41 Dose: 1 applic Ondansetron HCl (Zofran Injection) 4 mg IVPUSH Q6H PRN PRN Reason: NAUSEA AND/OR VOMITING Pantoprazole Sodium (Protonix -) 20 mg PO DAILY [facility] Last Admin: 07/10/19 09:40 Dose: 20 mg Polyethylene Glycol (Miralax (For Daily Use) -) 17 gm PO DAILY [facility] Last Admin: 07/10/19 09:40 Dose: Not Given Prednisone (Deltasone -) 10 mg PO DAILY [facility] Last Admin: 07/10/19 09:38 Dose: 10 mg Thiamine HCl (Vitamin B1 -) 100 mg PO DAILY [facility] Last Admin: 07/10/19 09:41 Dose: 100 mg Trazodone HCl (Desyrel -) 100 mg PO DAILY [facility] Last Admin: 07/10/19 09:40 Dose: 100 mg - Objective Vital Signs: Vital Signs Temperature 98.0 F 07/10/19 09:42 Pulse Rate 95 H 07/10/19 09:42 Respiratory Rate 20 07/10/19 09:42 Blood Pressure 145/82 07/10/19 09:42 O2 Sat by Pulse Oximetry (%) 95 07/10/19 09:00 Constitutional: Yes: Well Nourished, Calm Eyes: Yes: WNL HENT: Yes: WNL Neck: Yes: WNL Cardiovascular: Yes: Pulse Irregular, S1, S2 Respiratory: Yes: CTA Bilaterally Gastrointestinal: Yes: Normal Bowel Sounds, Soft Extremities: Yes: WNL Edema: Yes Labs: CBC, BMP 07/10/19 04:45 07/10/19 04:45 INR, PTT INR 1.34 (0.83-1.09) H 07/02/19 08:20 Problem List - Problems (1) Abnormal liver function tests Code(s): R94.5 - ABNORMAL RESULTS OF LIVER FUNCTION STUDIES (2) CHF (congestive heart failure) Code(s): I50.9 - HEART FAILURE, UNSPECIFIED Qualifiers: Heart failure type: unspecified Heart failure chronicity: acute on chronic Qualified Code(s): I50.9 - Heart failure, unspecified (3) COPD (chronic obstructive pulmonary disease) Code(s): J44.9 - CHRONIC OBSTRUCTIVE PULMONARY DISEASE, UNSPECIFIED Qualifiers: COPD type: unspecified COPD Qualified Code(s): J44.9 - Chronic obstructive pulmonary disease, unspecified (4) Hyponatremia Code(s): E87.1 - HYPO-OSMOLALITY AND HYPONATREMIA (5) Acute on chronic diastolic CHF (congestive heart failure) Code(s): I50.33 - ACUTE ON CHRONIC DIASTOLIC (CONGESTIVE) HEART FAILURE (6) Atrial fibrillation Code(s): I48.91 - UNSPECIFIED ATRIAL FIBRILLATION Qualifiers: Atrial fibrillation type: persistent Qualified Code(s): I48.1 - Persistent atrial fibrillation (7) CAD (coronary artery disease) Code(s): I25.10 - ATHSCL HEART DISEASE OF [place] CORONARY ARTERY W/O ANG PCTRS Qualifiers: Coronary Disease-Associated Artery/Lesion type: [place] artery [place] vs. transplanted heart: [place] heart Associated angina: without angina Qualified Code(s): I25.10 - Atherosclerotic heart disease of [place] coronary artery without angina pectoris (8) Diabetes Code(s): E11.9 - TYPE 2 DIABETES MELLITUS WITHOUT COMPLICATIONS Qualifiers: Diabetes mellitus type: type 2 (9) Elevated LFTs Code(s): R94.5 - ABNORMAL RESULTS OF LIVER FUNCTION STUDIES (10) Shortness of breath Code(s): R06.02 - SHORTNESS OF BREATH Assessment/Plan ASSESSMENT/PLAN: Hypervolemic hyponatremia in the setting of poor solute intake, chronic alcoholism, and CHF improved HFrEF Transaminitis 2/2 to alcohol abuse and congestive hepatopathy Severe lv dysfunction Hx of COPD Permanent Atrial fibrillation OSAS HTN HLD Abdominal pain improving Lasix BID CPAP QHS O2 as needed Strict I & O Prednisone Singulair Daily weights Nyla TEJEDA
--- NOTE | 2019-07-10 14:20 | PN ---
Progress Note, Physician History of Present Illness: Pt seen and examined at bedside. He is awake and alert. He feels that his breathing is comfortable. - Current Medication List Current Medications: Active Medications Apixaban (Eliquis -) 5 mg PO BID [facility] Last Admin: 07/10/19 09:39 Dose: 5 mg Budesonide/Formoterol Fumarate (Symbicort 80/4.5mcg -) 2 puff IH BID [facility] Last Admin: 07/10/19 09:41 Dose: 2 puff Digoxin (Lanoxin -) 0.125 mg PO DAILY [facility] Last Admin: 07/10/19 09:39 Dose: 0.125 mg Diphenhydramine HCl (Benadryl -) 25 mg PO Q6H PRN PRN Reason: FOR ITCHING Last Admin: 07/10/19 06:16 Dose: 25 mg Folic Acid (Folic Acid -) 1 mg PO DAILY [facility] Last Admin: 07/10/19 09:39 Dose: 1 mg Furosemide (Lasix -) 60 mg PO BID@0600,1400 [facility] Last Admin: 07/10/19 13:28 Dose: 60 mg Ceftriaxone Sodium 1 gm/ (Dextrose) 50 mls @ 100 mls/hr IVPB DAILY [facility] Last Admin: 07/10/19 09:38 Dose: 100 mls/hr Metronidazole (Flagyl 500mg Premixed Ivpb -) 500 mg in 100 mls @ 100 mls/hr IVPB Q8H-IV [facility] Last Admin: 07/10/19 10:18 Dose: 100 mls/hr Isosorbide Mononitrate (Imdur -) 60 mg PO DAILY [facility] Last Admin: 07/10/19 09:40 Dose: 60 mg Losartan Potassium (Cozaar -) 25 mg PO DAILY [facility] Last Admin: 07/10/19 09:40 Dose: 25 mg Montelukast Sodium (Singulair -) 10 mg PO HS [facility] Last Admin: 07/09/19 23:40 Dose: 10 mg Nystatin (Mycostatin Ointment -) 1 applic TP BID [facility] Last Admin: 07/10/19 09:41 Dose: 1 applic Ondansetron HCl (Zofran Injection) 4 mg IVPUSH Q6H PRN PRN Reason: NAUSEA AND/OR VOMITING Pantoprazole Sodium (Protonix -) 20 mg PO DAILY [facility] Last Admin: 07/10/19 09:40 Dose: 20 mg Polyethylene Glycol (Miralax (For Daily Use) -) 17 gm PO DAILY [facility] Last Admin: 07/10/19 09:40 Dose: Not Given Prednisone (Deltasone -) 10 mg PO DAILY [facility] Last Admin: 07/10/19 09:38 Dose: 10 mg Thiamine HCl (Vitamin B1 -) 100 mg PO DAILY [facility] Last Admin: 07/10/19 09:41 Dose: 100 mg Trazodone HCl (Desyrel -) 100 mg PO DAILY [facility] Last Admin: 07/10/19 09:40 Dose: 100 mg - Objective Vital Signs: Vital Signs Temperature 98.0 F 07/10/19 09:42 Pulse Rate 95 H 07/10/19 09:42 Respiratory Rate 20 07/10/19 09:42 Blood Pressure 145/82 07/10/19 09:42 O2 Sat by Pulse Oximetry (%) 95 07/10/19 09:00 Constitutional: Yes: Calm Eyes: Yes: Conjunctiva Clear HENT: Yes: Atraumatic Neck: Yes: Supple Cardiovascular: Yes: S1, S2 Respiratory: Yes: CTA Bilaterally Gastrointestinal: Yes: Soft, Abdomen, Obese Genitourinary: Yes: WNL Musculoskeletal: Yes: WNL Edema: Yes Edema: LLE: Trace, RLE: Trace Neurological: Yes: Oriented Psychiatric: Yes: Oriented Labs: CBC, BMP 07/10/19 04:45 07/10/19 04:45 INR, PTT INR 1.34 (0.83-1.09) H 07/02/19 08:20 Problem List - Problems (1) CHF (congestive heart failure) Code(s): I50.9 - HEART FAILURE, UNSPECIFIED Qualifiers: Heart failure type: unspecified Heart failure chronicity: acute on chronic Qualified Code(s): I50.9 - Heart failure, unspecified (2) Hyponatremia Code(s): E87.1 - HYPO-OSMOLALITY AND HYPONATREMIA Assessment/Plan Current Medications Generic Name Dose Route Start Last Admin Trade Name Freq PRN Reason Stop Dose Admin Apixaban 5 mg 06/28/19 22:00 07/10/19 09:39 Eliquis - PO 5 mg BID [facility] Administration Budesonide/Formoterol Fumarate 2 puff 07/04/19 12:00 07/10/19 09:41 Symbicort 80/4.5mcg - IH 2 puff BID [facility] Administration Digoxin 0.125 mg 06/29/19 10:00 07/10/19 09:39 Lanoxin - PO 0.125 mg DAILY [facility] Administration Diphenhydramine HCl 25 mg 06/29/19 15:15 07/10/19 06:16 Benadryl - PO 25 mg Q6H PRN Administration FOR ITCHING Folic Acid 1 mg 06/29/19 10:00 07/10/19 09:39 Folic Acid - PO 1 mg DAILY [facility] Administration Furosemide 60 mg 07/03/19 06:00 07/10/19 13:28 Lasix - PO 60 mg BID@0600,1400 [facility] Administration Ceftriaxone Sodium 1 gm/ 50 mls @ 100 mls/hr 07/04/19 14:45 07/10/19 09:38 Dextrose IVPB 100 mls/hr DAILY [facility] Administration Metronidazole 500 mg in 100 mls @ 100 mls/hr 07/04/19 14:45 07/10/19 10:18 Flagyl 500mg Premixed Ivpb - IVPB 100 mls/hr Q8H-IV [facility] Administration Isosorbide Mononitrate 60 mg 06/29/19 10:00 07/10/19 09:40 Imdur - PO 60 mg DAILY [facility] Administration Losartan Potassium 25 mg 06/29/19 10:00 07/10/19 09:40 Cozaar - PO 25 mg DAILY [facility] Administration Montelukast Sodium 10 mg 06/28/19 22:00 07/09/19 23:40 Singulair - PO 10 mg HS [facility] Administration Nystatin 1 applic 06/28/19 23:45 07/10/19 09:41 Mycostatin Ointment - TP 1 applic BID [facility] Administration Ondansetron HCl 4 mg 06/28/19 14:28 Zofran Injection IVPUSH Q6H PRN NAUSEA AND/OR VOMITING Pantoprazole Sodium 20 mg 07/01/19 10:00 07/10/19 09:40 Protonix - PO 20 mg DAILY [facility] Administration Polyethylene Glycol 17 gm 07/03/19 14:00 07/10/19 09:40 Miralax (For Daily Use) - PO Not Given DAILY [facility] Prednisone 10 mg 06/29/19 10:00 07/10/19 09:38 Deltasone - PO 10 mg DAILY [facility] Administration Thiamine HCl 100 mg 06/29/19 10:00 07/10/19 09:41 Vitamin B1 - PO 100 mg DAILY [facility] Administration Trazodone HCl 100 mg 06/29/19 10:00 07/10/19 09:40 Desyrel - PO 100 mg DAILY [facility] Administration Impression 1. CHF 2. hyponatremia - hypervolemic 3. fluid overload 4. asthma 5. a-fib 6. DM Plan - sodium is stable - discussed low sodiu diet with pt - will need outpt follow up - cont lasix - potassium improved - will follow PRN
[2019-07-10] MEDS: MONTELUKAST NA 10 MG TABLET PO SCH (21:17)
[2019-07-10] MEDS ORDERED: PT OWN MED DRAWER 7, Y5N ONE (21:38)
[2019-07-11] MEDS: FUROSEMIDE 20 MG TABLET (FP) PO SCH ×2 (06:27→13:59)
[2019-07-11] MEDS ORDERED: DEXTROSE 5%-WATER - 50 ML IVPB ONE (09:52)
[2019-07-11] MEDS ORDERED: cefTRIAXone SODIUM 1 GM VIAL ONE (09:52)
[2019-07-11] MEDS: CEFTRIAXONE 1 GM in DEXTROSE 5%-WATER - 50 ML IVPB SCH (09:56)
[2019-07-11] MEDS: DIGOXIN 0.125 MG TABLET (FP) PO SCH (09:57)
[2019-07-11] MEDS: predniSONE 10 MG TABLET (UD) PO SCH (09:57)
[2019-07-11] MEDS: PANTOPRAZOLE 20 MG TABLET (FP) PO SCH (09:57)
[2019-07-11] MEDS: APIXABAN 5 MG TABLET PO SCH ×2 (09:57→22:33)
[2019-07-11] MEDS: traZODone HCL 100 MG TABLET (FP) PO SCH (09:57)
[2019-07-11] MEDS: LOSARTAN POTASSIUM 25 MG TABLET PO SCH (09:58)
[2019-07-11] MEDS: FOLIC ACID 1 MG TABLET (FP) PO SCH (09:58)
[2019-07-11] MEDS: ISOSORBIDE MONONITRATE 60 MG TAB.SR.24H (FP) PO SCH (09:58)
[2019-07-11] MEDS: THIAMINE HCL 100 MG TABLET (FP) PO SCH (09:59)
[2019-07-11] MEDS: POLYETHYLENE GLYCOL 3350 119 GM BTL PO SCH ×2 (10:22→10:25)
[2019-07-11] MEDS: NYSTATIN 100000 UNIT/GM TOPICAL OINTMENT 15 GM TUBE TP SCH ×2 (10:22→22:34)
[2019-07-11] MEDS: BUDESONIDE/FORMETEROL FUMARATE 80/4.5 mcg INHALER IH SCH ×2 (10:22→22:33)
--- NOTE | 2019-07-11 11:01 | DS ---
Physical Examination Vital Signs: Vital Signs Temperature 98.7 F 07/11/19 05:20 Pulse Rate 92 H 07/11/19 09:57 Respiratory Rate 20 07/11/19 08:33 Blood Pressure 127/79 07/11/19 05:20 O2 Sat by Pulse Oximetry (%) 96 07/11/19 08:33 Labs: CBC, BMP 07/10/19 04:45 07/10/19 04:45 Discharge Summary Reason For Visit: CONGESTIVE HEART FAILURE/HYPONATREMIA Current Active Problems Abdominal pain (Acute) Abnormal liver function tests (Acute) CHF (congestive heart failure) (Acute) COPD (chronic obstructive pulmonary disease) (Acute) Diverticulitis (Acute) Hyponatremia (Acute) Non compliance with medical treatment (Acute) Hospital Course: - Problems (1) Abnormal liver function tests Assessment/Plan: -GI on board -AST 27, ALT 33, Alk phos 166 -monitor LFTs daily -Abd US shows hepatomegaly with fatty infiltration vs hepatocellular disease Code(s): R94.5 - ABNORMAL RESULTS OF LIVER FUNCTION STUDIES (2) Hyponatremia Assessment/Plan: -Na 137 -monitor electrolyte daily -Renal on board - Code(s): E87.1 - HYPO-OSMOLALITY AND HYPONATREMIA (3) Atrial fibrillation Assessment/Plan: -Cardiology on board -Eliquis -Digoxin for rate control Code(s): I48.91 - UNSPECIFIED ATRIAL FIBRILLATION Qualifiers: Atrial fibrillation type: persistent Qualified Code(s): I48.1 - Persistent atrial fibrillation (4) CHF exacerbation Assessment/Plan: -Cardiology on board -Furosemide -Losartan -1L fluid restriction -strict I&Os -daily weights -dietary consult placed Code(s): I50.9 - HEART FAILURE, UNSPECIFIED Qualifiers: Heart failure type: unspecified Qualified Code(s): I50.9 - Heart failure, unspecified (5) Hypertension Assessment/Plan: -Losartan -low Na diet Code(s): I10 - ESSENTIAL (PRIMARY) HYPERTENSION Qualifiers: Hypertension type: essential hypertension Qualified Code(s): I10 - Essential (primary) hypertension (6) COPD (chronic obstructive pulmonary disease) Assessment/Plan: -Bronchodilators -Pulm on board -O2 via NC -keep SpO2 >90% -prednisone -Singulair -Abdominal CT scan shows 2cm pleural thickening or nodular consolidation RLL -CHest CT scan shows no focal lung consolidation or mass Code(s): J44.9 - CHRONIC OBSTRUCTIVE PULMONARY DISEASE, UNSPECIFIED Qualifiers: COPD type: unspecified COPD Qualified Code(s): J44.9 - Chronic obstructive pulmonary disease, unspecified (7) Abdominal pain Assessment/Plan: -CT scan shows sigmoid diverticulosis, possible chronic sigmoid diverticulitis -GI on board -stool culture neg Code(s): R10.9 - UNSPECIFIED ABDOMINAL PAIN (8) Diverticulitis Assessment/Plan: -CT scan shows sigmoid diverticulosis, possible chronic sigmoid diverticulitis -dc Ceftriaxone, flagyl -diet advanced -repeat CT scan shows colonic diverticulosis without CT evidence of acute diverticulitis Code(s): K57.92 - DVTRCLI OF INTEST, PART UNSP, W/O PERF OR ABSCESS W/O BLEED Condition: Stable - Instructions Diet, Activity, Other Instructions: follow up with PMD in 1 week follow up with GI Dr Lee continue with antibiotics as prescribed continue with medication regimen low Na diet 1L fluid restriction return to ER if develop severe pain, respiratory distress, chest pain, nausea/ vomiting Referrals: Toribio Mix MD [Staff Physician] - Devang Romano DO [Staff Physician] - Jessica Wooten MD [Primary Care Provider] - Disposition: HOME - Home Medications Comprehensive Discharge Medication List: Ambulatory Orders Montelukast Na [Singulair -] 10 mg PO HS tablet 05/29/18 Albuterol 2.5/Ipratropium 0.5 [Duoneb -] 1 amp NEB Q6H PRN amp 09/03/18 Atorvastatin Ca [Lipitor] 40 mg PO HS tablet 09/03/18 Hydrocortisone 0.5% Ointment [Hytone 0.5% Ointment -] 1 applic TP BID PRN tube 09/03/18 Insulin Sliding Scale [Novolog Vial Sliding Scale -] 1 vial SQ ACHS units 09/03 Isosorbide Mononitrate [Imdur -] 60 mg PO DAILY tab.sr.24h 09/03/18 Furosemide [Lasix -] 40 mg PO BID@0600,1400 09/24/18 Acetaminophen [Tylenol .Regular Strength -] 650 mg PO Q6H PRN tablet 09/30/18 Apixaban [Eliquis -] 5 mg PO BID #30 tablet MDD 2 12/04/18 Digoxin [Lanoxin -] 0.125 mg PO DAILY #30 tablet MDD 1 12/04/18 Losartan Potassium [Cozaar -] 25 mg PO DAILY #30 tablet MDD 1 12/04/18 hydrOXYzine HCL [Atarax -] 25 mg PO Q6H PRN tablet 12/04/18 Insulin Glargine,Hum.rec.anlog [Basaglar Kwikpen U-100] 34 unit SQ HS 06/27/19 Metoprolol Succinate [Toprol XL -] 25 mg PO DAILY 06/27/19 predniSONE [Deltasone -] 10 mg PO DAILY 06/27/19 traZODone HCL [Trazodone HCl] 100 mg PO DAILY 06/27/19 Budesonide/Formeterol Fumarate [SYMBICORT 80/4.5mcg -] 2 puff IH BID #1 inhaler 07/10/19 Folic Acid - 1 mg PO DAILY #30 tablet 07/10/19 Pantoprazole Sodium [Protonix -] 20 mg PO DAILY #30 tablet.ec 07/10/19 Polyethylene Glycol 3350 [Miralax 119 gm Btl -] 17 gm PO DAILY #1 bottle Thiamine HCl [Vitamin B1 -] 100 mg PO DAILY #30 tablet 07/10/19 metroNIDAZOLE [Flagyl -] 250 mg PO TID #21 tablet 07/10/19
--- NOTE | 2019-07-11 12:13 | PN ---
Progress Note (short form) - Note Progress Note: PULMONARY States breathing is improving. No cough or wheezing. Leg swelling improving. Vital Signs Period Temp Pulse Resp BP Sys/Uribe Pulse Ox Last 24 Hr 97.3 F-98.7 F 92-105 20-20 115-138/75-89 96-96 Gen: NAD at rest Heart: RRR Lung: decreased breath sounds at the bases Abd: soft, nontender Ext: trace edema Active Medications Apixaban (Eliquis -) 5 mg PO BID [facility] Last Admin: 07/11/19 09:57 Dose: 5 mg Budesonide/Formoterol Fumarate (Symbicort 80/4.5mcg -) 2 puff IH BID [facility] Last Admin: 07/11/19 10:22 Dose: 2 puff Digoxin (Lanoxin -) 0.125 mg PO DAILY [facility] Last Admin: 07/11/19 09:57 Dose: 0.125 mg Diphenhydramine HCl (Benadryl -) 25 mg PO Q6H PRN PRN Reason: FOR ITCHING Last Admin: 07/10/19 21:17 Dose: 25 mg Folic Acid (Folic Acid -) 1 mg PO DAILY [facility] Last Admin: 07/11/19 09:58 Dose: 1 mg Furosemide (Lasix -) 60 mg PO BID@0600,1400 [facility] Last Admin: 07/11/19 06:27 Dose: 60 mg Ceftriaxone Sodium 1 gm/ (Dextrose) 50 mls @ 100 mls/hr IVPB DAILY [facility] Last Admin: 07/11/19 09:56 Dose: 100 mls/hr Metronidazole (Flagyl 500mg Premixed Ivpb -) 500 mg in 100 mls @ 100 mls/hr IVPB Q8H-IV [facility] Last Admin: 07/11/19 10:56 Dose: 100 mls/hr Isosorbide Mononitrate (Imdur -) 60 mg PO DAILY [facility] Last Admin: 07/11/19 09:58 Dose: 60 mg Losartan Potassium (Cozaar -) 25 mg PO DAILY [facility] Last Admin: 07/11/19 09:58 Dose: 25 mg Montelukast Sodium (Singulair -) 10 mg PO HS [facility] Last Admin: 07/10/19 21:17 Dose: 10 mg Nystatin (Mycostatin Ointment -) 1 applic TP BID [facility] Last Admin: 07/11/19 10:22 Dose: 1 applic Ondansetron HCl (Zofran Injection) 4 mg IVPUSH Q6H PRN PRN Reason: NAUSEA AND/OR VOMITING Pantoprazole Sodium (Protonix -) 20 mg PO DAILY [facility] Last Admin: 07/11/19 09:57 Dose: 20 mg Polyethylene Glycol (Miralax (For Daily Use) -) 17 gm PO DAILY [facility] Last Admin: 07/11/19 10:25 Dose: Not Given Prednisone (Deltasone -) 10 mg PO DAILY [facility] Last Admin: 07/11/19 09:57 Dose: 10 mg Thiamine HCl (Vitamin B1 -) 100 mg PO DAILY [facility] Last Admin: 07/11/19 09:59 Dose: 100 mg Trazodone HCl (Desyrel -) 100 mg PO DAILY [facility] Last Admin: 07/11/19 09:57 Dose: 100 mg A/P Hyponatremia improved Acute on Chronic Systolic Heart Failure Acute Diverticulitis Elevated LFTs COPD Atrial Fibrillation JUAN CARLOS HTN Hyperlipdidemia - continue antibiotics - continue lasix - monitor urine output, creatinine - inhaled bronchodilators - rate controlled - continue anticoagulation - CPAP at night
[2019-07-11 12:18] LABS: BASO % 0.7 % (0-2.0); HEMATOCRIT 35.8 % (35.4-49); HEMOGLOBIN 11.8 GM/dL (11.7-16.9); LYMPH % 7.8 % (8-40); MCH 29.7 pg (25.7-33.7); MCHC 32.8 g/dl (32.0-35.9); MEAN CELL VOLUME 90.4 fl (80-96); MEAN PLT VOLUME 9.3 fl (7.5-11.1); MONO % 9.7 % (3.8-10.2); NEUT % 79.8 % (42.8-82.8); PLATELET COUNT 172 K/MM3 (134-434); RBC 3.96 M/mm3 (4.00-5.60); WHITE BLOOD COUNT 8.6 K/mm3 (4.0-10.0)
[2019-07-11 12:33] LABS: ALBUMIN 2.5 g/dl (3.4-5.0); ALK PHOS 166 U/L (45-117); ANION GAP 6 MMOL/L (8-16); BILIRUBIN,TOTAL 0.6 mg/dL (0.2-1); BLOOD UREA NITROGEN 14.2 mg/dL (7-18); CALCIUM 8.1 mg/dL (8.5-10.1); CHLORIDE 100 mmol/L (98-107); CO2 31 mmol/L (21-32); GLUCOSE,RANDOM 146 mg/dL (74-106); POTASSIUM 3.4 mmol/L (3.5-5.1); SGOT/AST 19 U/L (15-37); SGPT/ALT 19 U/L (13-61); SODIUM 138 mmol/L (136-145); TOT PROT 6.3 g/dl (6.4-8.2)
[2019-07-11] MEDS ORDERED: POTASSIUM CHLORIDE TABS 20 MEQ TABLET.ER (FP) PO SCH (13:45)
--- NOTE | 2019-07-11 20:16 | PN ---
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 CHF 2. hyponatremia - hypervolemic 3. fluid overload 4. asthma 5. a-fib 6. DM Current Medications Apixaban (Eliquis -) 5 mg PO BID [facility] Last Admin: 07/11/19 09:57 Dose: 5 mg Budesonide/Formoterol Fumarate (Symbicort 80/4.5mcg -) 2 puff IH BID [facility] Last Admin: 07/11/19 10:22 Dose: 2 puff Digoxin (Lanoxin -) 0.125 mg PO DAILY [facility] Last Admin: 07/11/19 09:57 Dose: 0.125 mg Diphenhydramine HCl (Benadryl -) 25 mg PO Q6H PRN PRN Reason: FOR ITCHING Last Admin: 07/10/19 21:17 Dose: 25 mg Folic Acid (Folic Acid -) 1 mg PO DAILY [facility] Last Admin: 07/11/19 09:58 Dose: 1 mg Furosemide (Lasix -) 60 mg PO BID@0600,1400 [facility] Last Admin: 07/11/19 13:59 Dose: 60 mg Isosorbide Mononitrate (Imdur -) 60 mg PO DAILY [facility] Last Admin: 07/11/19 09:58 Dose: 60 mg Losartan Potassium (Cozaar -) 25 mg PO DAILY [facility] Last Admin: 07/11/19 09:58 Dose: 25 mg Montelukast Sodium (Singulair -) 10 mg PO HS [facility] Last Admin: 07/10/19 21:17 Dose: 10 mg Nystatin (Mycostatin Ointment -) 1 applic TP BID [facility] Last Admin: 07/11/19 10:22 Dose: 1 applic Ondansetron HCl (Zofran Injection) 4 mg IVPUSH Q6H PRN PRN Reason: NAUSEA AND/OR VOMITING Pantoprazole Sodium (Protonix -) 20 mg PO DAILY [facility] Last Admin: 07/11/19 09:57 Dose: 20 mg Polyethylene Glycol (Miralax (For Daily Use) -) 17 gm PO DAILY [facility] Last Admin: 07/11/19 10:25 Dose: Not Given Potassium Chloride (K-Dur -) 20 meq PO DAILY [facility] Last Admin: 07/11/19 13:59 Dose: 20 meq Prednisone (Deltasone -) 10 mg PO DAILY [facility] Last Admin: 07/11/19 09:57 Dose: 10 mg Thiamine HCl (Vitamin B1 -) 100 mg PO DAILY [facility] Last Admin: 07/11/19 09:59 Dose: 100 mg Trazodone HCl (Desyrel -) 100 mg PO DAILY [facility] Last Admin: 07/11/19 09:57 Dose: 100 mg Last Vital Signs Temp Pulse Resp BP Pulse Ox 98.3 F 100 H 20 129/70 96 07/11/19 18:14 07/11/19 18:14 07/11/19 18:14 07/11/19 18:14 07/11/19 08:33 CBC, BMP 07/11/19 11:55 07/11/19 11:55 Hypokalemia Plan- replace
[2019-07-11] MEDS: diphenhydrAMINE HCL 25 MG CAPSULE (FP) PO PRN (22:33)
[2019-07-11] MEDS: MONTELUKAST NA 10 MG TABLET PO SCH (22:33)
[2019-07-12] MEDS: FUROSEMIDE 20 MG TABLET (FP) PO SCH ×2 (06:03→14:02)
[2019-07-12 07:34] LABS: ALBUMIN 2.6 g/dl (3.4-5.0); BILIRUBIN,TOTAL 0.8 mg/dL (0.2-1); BLOOD UREA NITROGEN 15.5 mg/dL (7-18); CALCIUM 8.2 mg/dL (8.5-10.1); POTASSIUM 3.1 mmol/L (3.5-5.1); TOT PROT 6.6 g/dl (6.4-8.2)
[2019-07-12] MEDS ORDERED: POTASSIUM CHLORIDE TABS 20 MEQ TABLET.ER (FP) PO ONE (08:59)
[2019-07-12] MEDS: THIAMINE HCL 100 MG TABLET (FP) PO SCH (09:46)
[2019-07-12] MEDS: PANTOPRAZOLE 20 MG TABLET (FP) PO SCH (09:47)
[2019-07-12] MEDS: ISOSORBIDE MONONITRATE 60 MG TAB.SR.24H (FP) PO SCH (09:47)
[2019-07-12] MEDS: LOSARTAN POTASSIUM 25 MG TABLET PO SCH (09:47)
[2019-07-12] MEDS: DIGOXIN 0.125 MG TABLET (FP) PO SCH (09:47)
[2019-07-12] MEDS: traZODone HCL 100 MG TABLET (FP) PO SCH (09:48)
[2019-07-12] MEDS: predniSONE 10 MG TABLET (UD) PO SCH (09:48)
[2019-07-12] MEDS: APIXABAN 5 MG TABLET PO SCH ×2 (09:48→21:14)
[2019-07-12] MEDS: FOLIC ACID 1 MG TABLET (FP) PO SCH (09:48)
[2019-07-12] MEDS: BUDESONIDE/FORMETEROL FUMARATE 80/4.5 mcg INHALER IH SCH ×2 (10:13→21:14)
[2019-07-12] MEDS: NYSTATIN 100000 UNIT/GM TOPICAL OINTMENT 15 GM TUBE TP SCH ×2 (10:14→21:14)
[2019-07-12] MEDS: POLYETHYLENE GLYCOL 3350 119 GM BTL PO SCH (10:15)
--- NOTE | 2019-07-12 11:01 | DS ---
Physical Examination Vital Signs: Vital Signs Temperature 97.5 F L 07/12/19 08:57 Pulse Rate 94 H 07/12/19 09:47 Respiratory Rate 18 07/12/19 08:57 Blood Pressure 120/77 07/12/19 08:57 O2 Sat by Pulse Oximetry (%) 96 07/11/19 21:00 Cardiovascular: Yes: S1, S2 Respiratory: Yes: Regular, CTA Bilaterally Gastrointestinal: Yes: Normal Bowel Sounds, Soft. No: Tenderness Edema: No Labs: CBC, BMP 07/11/19 11:55 07/12/19 06:37 Discharge Summary Reason For Visit: CONGESTIVE HEART FAILURE/HYPONATREMIA Current Active Problems Abdominal pain (Acute) Abnormal liver function tests (Acute) CHF (congestive heart failure) (Acute) COPD (chronic obstructive pulmonary disease) (Acute) Diverticulitis (Acute) Hyponatremia (Acute) Non compliance with medical treatment (Acute) Hospital Course: - Problems (1) Abnormal liver function tests Assessment/Plan: -GI on board -AST 27, ALT 33, Alk phos 166 -monitor LFTs daily -Abd US shows hepatomegaly with fatty infiltration vs hepatocellular disease Code(s): R94.5 - ABNORMAL RESULTS OF LIVER FUNCTION STUDIES (2) Hyponatremia Assessment/Plan: -Na 137 -monitor electrolyte daily -Renal on board - Code(s): E87.1 - HYPO-OSMOLALITY AND HYPONATREMIA (3) Atrial fibrillation Assessment/Plan: -Cardiology on board -Eliquis -Digoxin for rate control Code(s): I48.91 - UNSPECIFIED ATRIAL FIBRILLATION Qualifiers: Atrial fibrillation type: persistent Qualified Code(s): I48.1 - Persistent atrial fibrillation (4) CHF exacerbation Assessment/Plan: -Cardiology on board -Furosemide -Losartan -1L fluid restriction -strict I&Os -daily weights -dietary consult placed Code(s): I50.9 - HEART FAILURE, UNSPECIFIED Qualifiers: Heart failure type: unspecified Qualified Code(s): I50.9 - Heart failure, unspecified (5) Hypertension Assessment/Plan: -Losartan -low Na diet Code(s): I10 - ESSENTIAL (PRIMARY) HYPERTENSION Qualifiers: Hypertension type: essential hypertension Qualified Code(s): I10 - Essential (primary) hypertension (6) COPD (chronic obstructive pulmonary disease) Assessment/Plan: -Bronchodilators -Pulm on board -O2 via NC -keep SpO2 >90% -prednisone -Singulair -Abdominal CT scan shows 2cm pleural thickening or nodular consolidation RLL -CHest CT scan shows no focal lung consolidation or mass Code(s): J44.9 - CHRONIC OBSTRUCTIVE PULMONARY DISEASE, UNSPECIFIED Qualifiers: COPD type: unspecified COPD Qualified Code(s): J44.9 - Chronic obstructive pulmonary disease, unspecified (7) Abdominal pain Assessment/Plan: -CT scan shows sigmoid diverticulosis, possible chronic sigmoid diverticulitis -GI on board -stool culture neg Code(s): R10.9 - UNSPECIFIED ABDOMINAL PAIN (8) Diverticulitis Assessment/Plan: -CT scan shows sigmoid diverticulosis, possible chronic sigmoid diverticulitis -dc Ceftriaxone, flagyl -diet advanced -repeat CT scan shows colonic diverticulosis without CT evidence of acute diverticulitis Code(s): K57.92 - DVTRCLI OF INTEST, PART UNSP, W/O PERF OR ABSCESS W/O BLEED Condition: Stable - Instructions Diet, Activity, Other Instructions: follow up with PMD in 1 week follow up with GI Dr Lee continue with antibiotics as prescribed continue with medication regimen low Na diet 1L fluid restriction potasium one pill twice a day blood test within one week return to ER if develop severe pain, respiratory distress, chest pain, nausea/ vomiting Referrals: Toribio Mix MD [Staff Physician] - Devang Romano DO [Staff Physician] - Jessica Wooten MD [Primary Care Provider] - Disposition: HOME - Home Medications Comprehensive Discharge Medication List: Ambulatory Orders Montelukast Na [Singulair -] 10 mg PO HS tablet 05/29/18 Albuterol 2.5/Ipratropium 0.5 [Duoneb -] 1 amp NEB Q6H PRN amp 09/03/18 Atorvastatin Ca [Lipitor] 40 mg PO HS tablet 09/03/18 Hydrocortisone 0.5% Ointment [Hytone 0.5% Ointment -] 1 applic TP BID PRN tube 09/03/18 Insulin Sliding Scale [Novolog Vial Sliding Scale -] 1 vial SQ ACHS units 09/03 Isosorbide Mononitrate [Imdur -] 60 mg PO DAILY tab.sr.24h 09/03/18 Furosemide [Lasix -] 40 mg PO BID@0600,1400 09/24/18 Acetaminophen [Tylenol .Regular Strength -] 650 mg PO Q6H PRN tablet 09/30/18 Apixaban [Eliquis -] 5 mg PO BID #30 tablet MDD 2 12/04/18 Digoxin [Lanoxin -] 0.125 mg PO DAILY #30 tablet MDD 1 12/04/18 Losartan Potassium [Cozaar -] 25 mg PO DAILY #30 tablet MDD 1 12/04/18 hydrOXYzine HCL [Atarax -] 25 mg PO Q6H PRN tablet 12/04/18 Insulin Glargine,Hum.rec.anlog [Basaglar Kwikpen U-100] 34 unit SQ HS 06/27/19 Metoprolol Succinate [Toprol XL -] 25 mg PO DAILY 06/27/19 predniSONE [Deltasone -] 10 mg PO DAILY 06/27/19 traZODone HCL [Trazodone HCl] 100 mg PO DAILY 06/27/19 Budesonide/Formeterol Fumarate [SYMBICORT 80/4.5mcg -] 2 puff IH BID #1 inhaler 07/10/19 Folic Acid - 1 mg PO DAILY #30 tablet 07/10/19 Pantoprazole Sodium [Protonix -] 20 mg PO DAILY #30 tablet.ec 07/10/19 Polyethylene Glycol 3350 [Miralax 119 gm Btl -] 17 gm PO DAILY #1 bottle Thiamine HCl [Vitamin B1 -] 100 mg PO DAILY #30 tablet 07/10/19 metroNIDAZOLE [Flagyl -] 250 mg PO TID #21 tablet 07/10/19 Potassium Chloride [K-Dur -] 20 meq PO BID tablet.er 07/12/19
--- NOTE | 2019-07-12 11:28 | PN ---
Progress Note (short form) - Note Progress Note: PULMONARY Feels tired today. States breathing is improving. No cough or wheezing. Vital Signs Period Temp Pulse Resp BP Sys/Uribe Pulse Ox Last 24 Hr 97.5 F-98.3 F 80-107 18-20 112-132/59-83 96 Gen: NAD at rest Heart: RRR Lung: decreased breath sounds at the bases Abd: soft, nontender Ext: trace edema CBC, BMP 07/11/19 11:55 07/12/19 06:37 Active Medications Apixaban (Eliquis -) 5 mg PO BID [facility] Last Admin: 07/12/19 09:48 Dose: 5 mg Budesonide/Formoterol Fumarate (Symbicort 80/4.5mcg -) 2 puff IH BID [facility] Last Admin: 07/12/19 10:13 Dose: 2 puff Digoxin (Lanoxin -) 0.125 mg PO DAILY [facility] Last Admin: 07/12/19 09:47 Dose: 0.125 mg Diphenhydramine HCl (Benadryl -) 25 mg PO Q6H PRN PRN Reason: FOR ITCHING Last Admin: 07/11/19 22:33 Dose: 25 mg Folic Acid (Folic Acid -) 1 mg PO DAILY [facility] Last Admin: 07/12/19 09:48 Dose: 1 mg Furosemide (Lasix -) 60 mg PO BID@0600,1400 [facility] Last Admin: 07/12/19 06:03 Dose: 60 mg Isosorbide Mononitrate (Imdur -) 60 mg PO DAILY [facility] Last Admin: 07/12/19 09:47 Dose: 60 mg Losartan Potassium (Cozaar -) 25 mg PO DAILY [facility] Last Admin: 07/12/19 09:47 Dose: 25 mg Montelukast Sodium (Singulair -) 10 mg PO HS [facility] Last Admin: 07/11/19 22:33 Dose: 10 mg Nystatin (Mycostatin Ointment -) 1 applic TP BID [facility] Last Admin: 07/12/19 10:14 Dose: Not Given Ondansetron HCl (Zofran Injection) 4 mg IVPUSH Q6H PRN PRN Reason: NAUSEA AND/OR VOMITING Pantoprazole Sodium (Protonix -) 20 mg PO DAILY [facility] Last Admin: 07/12/19 09:47 Dose: 20 mg Polyethylene Glycol (Miralax (For Daily Use) -) 17 gm PO DAILY [facility] Last Admin: 07/12/19 10:15 Dose: Not Given Potassium Chloride (K-Dur -) 20 meq PO BID [facility] Prednisone (Deltasone -) 10 mg PO DAILY [facility] Last Admin: 07/12/19 09:48 Dose: 10 mg Thiamine HCl (Vitamin B1 -) 100 mg PO DAILY [facility] Last Admin: 07/12/19 09:46 Dose: 100 mg Trazodone HCl (Desyrel -) 100 mg PO DAILY [facility] Last Admin: 07/12/19 09:48 Dose: 100 mg A/P Hyponatremia improved Acute on Chronic Systolic Heart Failure Acute Diverticulitis Elevated LFTs COPD Atrial Fibrillation JUAN CARLOS HTN Hyperlipdidemia - continue antibiotics - continue lasix - monitor urine output, creatinine - inhaled bronchodilators - rate controlled - continue anticoagulation - CPAP at night - d/c planning
[2019-07-12] MEDS: POTASSIUM CHLORIDE TABS 20 MEQ TABLET.ER (FP) PO SCH ×2 (12:24→21:14)
[2019-07-12] MEDS: diphenhydrAMINE HCL 25 MG CAPSULE (FP) PO PRN ×2 (12:24→21:14)
--- NOTE | 2019-07-12 21:06 | PN ---
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 CHF 2. hyponatremia - hypervolemic 3. fluid overload 4. asthma 5. a-fib 6. DM Current Medications Apixaban (Eliquis -) 5 mg PO BID [facility] [place] Last Admin: 07/12/19 09:48 Dose: 5 mg Budesonide/Formoterol Fumarate (Symbicort 80/4.5mcg -) 2 puff IH BID [facility] Last Admin: 07/12/19 10:13 Dose: 2 puff Digoxin (Lanoxin -) 0.125 mg PO DAILY [facility] Last Admin: 07/12/19 09:47 Dose: 0.125 mg Diphenhydramine HCl (Benadryl -) 25 mg PO Q6H PRN PRN Reason: FOR ITCHING Last Admin: 07/12/19 12:24 Dose: 25 mg Folic Acid (Folic Acid -) 1 mg PO DAILY [facility] [place] Last Admin: 07/12/19 09:48 Dose: 1 mg Furosemide (Lasix -) 60 mg PO BID@0600,1400 [facility] [place] Last Admin: 07/12/19 14:02 Dose: 60 mg Isosorbide Mononitrate (Imdur -) 60 mg PO DAILY [facility] [place] Last Admin: 07/12/19 09:47 Dose: 60 mg Losartan Potassium (Cozaar -) 25 mg PO DAILY [facility] [place] Last Admin: 07/12/19 09:47 Dose: 25 mg Montelukast Sodium (Singulair -) 10 mg PO HS [facility] [place] Last Admin: 07/11/19 22:33 Dose: 10 mg Nystatin (Mycostatin Ointment -) 1 applic TP BID [facility] [place] Last Admin: 07/12/19 10:14 Dose: Not Given Ondansetron HCl (Zofran Injection) 4 mg IVPUSH Q6H PRN PRN Reason: NAUSEA AND/OR VOMITING Pantoprazole Sodium (Protonix -) 20 mg PO DAILY [facility] [place] Last Admin: 07/12/19 09:47 Dose: 20 mg Polyethylene Glycol (Miralax (For Daily Use) -) 17 gm PO DAILY [facility] [place] Last Admin: 07/12/19 10:15 Dose: Not Given Potassium Chloride (K-Dur -) 20 meq PO BID [facility] [place] Last Admin: 07/12/19 12:24 Dose: 20 meq Prednisone (Deltasone -) 10 mg PO DAILY [facility] [place] Last Admin: 07/12/19 09:48 Dose: 10 mg Thiamine HCl (Vitamin B1 -) 100 mg PO DAILY [facility] [place] Last Admin: 07/12/19 09:46 Dose: 100 mg Trazodone HCl (Desyrel -) 100 mg PO DAILY [facility] [place] Last Admin: 07/12/19 09:48 Dose: 100 mg Last Vital Signs Temp Pulse Resp BP Pulse Ox 98.4 F 107 H 18 149/82 95 07/12/19 18:30 07/12/19 18:30 07/12/19 18:30 07/12/19 18:30 07/12/19 09:00 lungs clear Heart reg Abd soft nontendr Ext no edema [facility] 07/12/19 06:37 CBC, [facility] 07/11/19 11:55 07/11/19 11:55 persistent Hypokalemia getting replacement Plan- continue k replacement
[2019-07-12] MEDS: MONTELUKAST NA 10 MG TABLET PO SCH (21:14)
[2019-07-13] MEDS: FUROSEMIDE 20 MG TABLET (FP) PO SCH ×2 (06:03→15:00)
[2019-07-13] MEDS ORDERED: PT OWN MED DRAWER 7, Y5N ONE (09:18)
[2019-07-13] MEDS: FOLIC ACID 1 MG TABLET (FP) PO SCH (09:43)
[2019-07-13] MEDS: DIGOXIN 0.125 MG TABLET (FP) PO SCH (09:43)
[2019-07-13] MEDS: traZODone HCL 100 MG TABLET (FP) PO SCH (09:43)
[2019-07-13] MEDS: APIXABAN 5 MG TABLET PO SCH ×2 (09:43→21:04)
[2019-07-13] MEDS: ISOSORBIDE MONONITRATE 60 MG TAB.SR.24H (FP) PO SCH (09:43)
[2019-07-13] MEDS: LOSARTAN POTASSIUM 25 MG TABLET PO SCH (09:43)
[2019-07-13] MEDS: predniSONE 10 MG TABLET (UD) PO SCH (09:43)
[2019-07-13] MEDS: PANTOPRAZOLE 20 MG TABLET (FP) PO SCH (09:43)
[2019-07-13] MEDS: POTASSIUM CHLORIDE TABS 20 MEQ TABLET.ER (FP) PO SCH ×2 (09:43→21:04)
[2019-07-13] MEDS: NYSTATIN 100000 UNIT/GM TOPICAL OINTMENT 15 GM TUBE TP SCH ×2 (09:44→21:04)
[2019-07-13] MEDS: BUDESONIDE/FORMETEROL FUMARATE 80/4.5 mcg INHALER IH SCH ×2 (09:45→21:04)
[2019-07-13] MEDS: POLYETHYLENE GLYCOL 3350 119 GM BTL PO SCH (09:45)
[2019-07-13] MEDS: THIAMINE HCL 100 MG TABLET (FP) PO SCH (09:46)
--- NOTE | 2019-07-13 10:25 | PN ---
Progress Note, Physician History of Present Illness: pulmonary alert,comfortable,-sob,+ cough,-cp - Current Medication List Current Medications: Active Medications Apixaban (Eliquis -) 5 mg PO BID [facility] Last Admin: 07/13/19 09:43 Dose: 5 mg Budesonide/Formoterol Fumarate (Symbicort 80/4.5mcg -) 2 puff IH BID [facility] Last Admin: 07/13/19 09:45 Dose: 2 puff Digoxin (Lanoxin -) 0.125 mg PO DAILY [facility] Last Admin: 07/13/19 09:43 Dose: 0.125 mg Diphenhydramine HCl (Benadryl -) 25 mg PO BID PRN PRN Reason: FOR ITCHING Folic Acid (Folic Acid -) 1 mg PO DAILY [facility] Last Admin: 07/13/19 09:43 Dose: 1 mg Furosemide (Lasix -) 60 mg PO BID@0600,1400 [facility] Last Admin: 07/13/19 06:03 Dose: 60 mg Isosorbide Mononitrate (Imdur -) 60 mg PO DAILY [facility] [place] Last Admin: 07/13/19 09:43 Dose: 60 mg Losartan Potassium (Cozaar -) 25 mg PO DAILY [facility] Last Admin: 07/13/19 09:43 Dose: 25 mg Montelukast Sodium (Singulair -) 10 mg PO HS [facility] Last Admin: 07/12/19 21:14 Dose: 10 mg Nystatin (Mycostatin Ointment -) 1 applic TP BID [facility] Last Admin: 07/13/19 09:44 Dose: 1 applic Ondansetron HCl (Zofran Injection) 4 mg IVPUSH Q6H PRN PRN Reason: NAUSEA AND/OR VOMITING Pantoprazole Sodium (Protonix -) 20 mg PO DAILY [facility] [place] Last Admin: 07/13/19 09:43 Dose: 20 mg Polyethylene Glycol (Miralax (For Daily Use) -) 17 gm PO DAILY [facility] Last Admin: 07/13/19 09:45 Dose: Not Given Potassium Chloride (K-Dur -) 20 meq PO BID [facility] Last Admin: 07/13/19 09:43 Dose: 20 meq Prednisone (Deltasone -) 10 mg PO DAILY [facility] Last Admin: 07/13/19 09:43 Dose: 10 mg Thiamine HCl (Vitamin B1 -) 100 mg PO DAILY [facility] Last Admin: 07/13/19 09:46 Dose: 100 mg Trazodone HCl (Desyrel -) 100 mg PO DAILY [facility] Last Admin: 07/13/19 09:43 Dose: 100 mg - Objective Vital Signs: Vital Signs Temperature 97.6 F 07/13/19 09:49 Pulse Rate 100 H 07/13/19 09:49 Respiratory Rate 17 07/13/19 09:49 Blood Pressure 106/80 07/13/19 09:49 O2 Sat by Pulse Oximetry (%) 95 07/12/19 21:00 Constitutional: Yes: Well Nourished, Calm Eyes: Yes: WNL HENT: Yes: Nasal Congestion Neck: Yes: WNL Cardiovascular: Yes: Pulse Irregular, S1, S2 Respiratory: Yes: Diminished Gastrointestinal: Yes: Normal Bowel Sounds, Soft Extremities: Yes: WNL Edema: Yes Labs: CBC, BMP 07/11/19 11:55 Problem List - Problems (1) Abnormal liver function tests Code(s): R94.5 - ABNORMAL RESULTS OF LIVER FUNCTION STUDIES (2) CHF (congestive heart failure) Code(s): I50.9 - HEART FAILURE, UNSPECIFIED Qualifiers: Heart failure type: unspecified Heart failure chronicity: acute on chronic Qualified Code(s): I50.9 - Heart failure, unspecified (3) COPD (chronic obstructive pulmonary disease) Code(s): J44.9 - CHRONIC OBSTRUCTIVE PULMONARY DISEASE, UNSPECIFIED Qualifiers: COPD type: unspecified COPD Qualified Code(s): J44.9 - Chronic obstructive pulmonary disease, unspecified (4) Hyponatremia Code(s): E87.1 - HYPO-OSMOLALITY AND HYPONATREMIA (5) Acute on chronic diastolic CHF (congestive heart failure) Code(s): I50.33 - ACUTE ON CHRONIC DIASTOLIC (CONGESTIVE) HEART FAILURE (6) Atrial fibrillation Code(s): I48.91 - UNSPECIFIED ATRIAL FIBRILLATION Qualifiers: Atrial fibrillation type: persistent Qualified Code(s): I48.1 - Persistent atrial fibrillation (7) CAD (coronary artery disease) Code(s): I25.10 - ATHSCL HEART DISEASE OF [place] CORONARY ARTERY W/O ANG PCTRS Qualifiers: Coronary Disease-Associated Artery/Lesion type: [place] artery [place] vs. transplanted heart: [place] heart Associated angina: without angina Qualified Code(s): I25.10 - Atherosclerotic heart disease of [place] coronary artery without angina pectoris (8) Diabetes Code(s): E11.9 - TYPE 2 DIABETES MELLITUS WITHOUT COMPLICATIONS Qualifiers: Diabetes mellitus type: type 2 (9) Elevated LFTs Code(s): R94.5 - ABNORMAL RESULTS OF LIVER FUNCTION STUDIES (10) Shortness of breath Code(s): R06.02 - SHORTNESS OF BREATH Assessment/Plan ASSESSMENT/PLAN: Hypervolemic hyponatremia in the setting of poor solute intake, chronic alcoholism, and CHF improved HFrEF Transaminitis 2/2 to alcohol abuse and congestive hepatopathy Severe lv dysfunction Hx of COPD Permanent Atrial fibrillation OSAS HTN HLD Abdominal pain improving Lasix BID CPAP QHS O2 as needed Strict I & O Prednisone Singulair Daily weights Nyla TEJEDA
[2019-07-13] MEDS: diphenhydrAMINE HCL 25 MG CAPSULE (FP) PO PRN ×2 (11:15→21:03)
--- NOTE | 2019-07-13 11:53 | DS ---
Physical Examination Vital Signs: Vital Signs Temperature 97.6 F 07/13/19 09:49 Pulse Rate 100 H 07/13/19 09:49 Respiratory Rate 17 07/13/19 09:49 Blood Pressure 106/80 07/13/19 09:49 O2 Sat by Pulse Oximetry (%) 95 07/12/19 21:00 Cardiovascular: Yes: Regular Rate and Rhythm Respiratory: Yes: Regular, CTA Bilaterally Gastrointestinal: Yes: Normal Bowel Sounds, Soft. No: Tenderness Labs: CBC, BMP 07/11/19 11:55 07/12/19 06:37 Discharge Summary Reason For Visit: CONGESTIVE HEART FAILURE/HYPONATREMIA Current Active Problems Abdominal pain (Acute) Abnormal liver function tests (Acute) CHF (congestive heart failure) (Acute) COPD (chronic obstructive pulmonary disease) (Acute) Diverticulitis (Acute) Hyponatremia (Acute) Non compliance with medical treatment (Acute) Hospital Course: - Problems (1) Abnormal liver function tests Assessment/Plan: -GI on board -AST 27, ALT 33, Alk phos 166 -monitor LFTs daily -Abd US shows hepatomegaly with fatty infiltration vs hepatocellular disease Code(s): R94.5 - ABNORMAL RESULTS OF LIVER FUNCTION STUDIES (2) Hyponatremia Assessment/Plan: -Na 137 -monitor electrolyte daily -Renal on board - Code(s): E87.1 - HYPO-OSMOLALITY AND HYPONATREMIA (3) Atrial fibrillation Assessment/Plan: -Cardiology on board -Eliquis -Digoxin for rate control Code(s): I48.91 - UNSPECIFIED ATRIAL FIBRILLATION Qualifiers: Atrial fibrillation type: persistent Qualified Code(s): I48.1 - Persistent atrial fibrillation (4) CHF exacerbation Assessment/Plan: -Cardiology on board -Furosemide -Losartan -1L fluid restriction -strict I&Os -daily weights -dietary consult placed Code(s): I50.9 - HEART FAILURE, UNSPECIFIED Qualifiers: Heart failure type: unspecified Qualified Code(s): I50.9 - Heart failure, unspecified (5) Hypertension Assessment/Plan: -Losartan -low Na diet Code(s): I10 - ESSENTIAL (PRIMARY) HYPERTENSION Qualifiers: Hypertension type: essential hypertension Qualified Code(s): I10 - Essential (primary) hypertension (6) COPD (chronic obstructive pulmonary disease) Assessment/Plan: -Bronchodilators -Pulm on board -O2 via NC -keep SpO2 >90% -prednisone -Singulair -Abdominal CT scan shows 2cm pleural thickening or nodular consolidation RLL -CHest CT scan shows no focal lung consolidation or mass Code(s): J44.9 - CHRONIC OBSTRUCTIVE PULMONARY DISEASE, UNSPECIFIED Qualifiers: COPD type: unspecified COPD Qualified Code(s): J44.9 - Chronic obstructive pulmonary disease, unspecified (7) Abdominal pain Assessment/Plan: -CT scan shows sigmoid diverticulosis, possible chronic sigmoid diverticulitis -GI on board -stool culture neg Code(s): R10.9 - UNSPECIFIED ABDOMINAL PAIN (8) Diverticulitis Assessment/Plan: -CT scan shows sigmoid diverticulosis, possible chronic sigmoid diverticulitis -dc Ceftriaxone, flagyl -diet advanced -repeat CT scan shows colonic diverticulosis without CT evidence of acute diverticulitis Code(s): K57.92 - DVTRCLI OF INTEST, PART UNSP, W/O PERF OR ABSCESS W/O BLEED Condition: Stable Condition: Stable - Instructions Diet, Activity, Other Instructions: follow up with PMD in 1 week follow up with GI Dr Lee continue with antibiotics as prescribed continue with medication regimen low Na diet 1L fluid restriction potasium one pill twice a day blood test within one week return to ER if develop severe pain, respiratory distress, chest pain, nausea/ vomiting Referrals: Toribio Mix MD [Staff Physician] - Devang Romano DO [Staff Physician] - Jessica Wooten MD [Primary Care Provider] - Disposition: HOME - Home Medications Comprehensive Discharge Medication List: Ambulatory Orders Montelukast Na [Singulair -] 10 mg PO HS tablet 05/29/18 Albuterol 2.5/Ipratropium 0.5 [Duoneb -] 1 amp NEB Q6H PRN amp 09/03/18 Atorvastatin Ca [Lipitor] 40 mg PO HS tablet 09/03/18 Hydrocortisone 0.5% Ointment [Hytone 0.5% Ointment -] 1 applic TP BID PRN tube 09/03/18 Insulin Sliding Scale [Novolog Vial Sliding Scale -] 1 vial SQ ACHS units 09/03 Isosorbide Mononitrate [Imdur -] 60 mg PO DAILY tab.sr.24h 09/03/18 Furosemide [Lasix -] 40 mg PO BID@0600,1400 09/24/18 Acetaminophen [Tylenol .Regular Strength -] 650 mg PO Q6H PRN tablet 09/30/18 Apixaban [Eliquis -] 5 mg PO BID #30 tablet MDD 2 12/04/18 Digoxin [Lanoxin -] 0.125 mg PO DAILY #30 tablet MDD 1 12/04/18 Losartan Potassium [Cozaar -] 25 mg PO DAILY #30 tablet MDD 1 12/04/18 hydrOXYzine HCL [Atarax -] 25 mg PO Q6H PRN tablet 12/04/18 Insulin Glargine,Hum.rec.anlog [Basaglar Kwikpen U-100] 34 unit SQ HS 06/27/19 Metoprolol Succinate [Toprol XL -] 25 mg PO DAILY 06/27/19 predniSONE [Deltasone -] 10 mg PO DAILY 06/27/19 traZODone HCL [Trazodone HCl] 100 mg PO DAILY 06/27/19 Budesonide/Formeterol Fumarate [SYMBICORT 80/4.5mcg -] 2 puff IH BID #1 inhaler 07/10/19 Folic Acid - 1 mg PO DAILY #30 tablet 07/10/19 Pantoprazole Sodium [Protonix -] 20 mg PO DAILY #30 tablet.ec 07/10/19 Polyethylene Glycol 3350 [Miralax 119 gm Btl -] 17 gm PO DAILY #1 bottle Thiamine HCl [Vitamin B1 -] 100 mg PO DAILY #30 tablet 07/10/19 metroNIDAZOLE [Flagyl -] 250 mg PO TID #21 tablet 07/10/19 Potassium Chloride [K-Dur -] 20 meq PO BID tablet.er 07/12/19
[2019-07-13] MEDS: MONTELUKAST NA 10 MG TABLET PO SCH (21:04)
[2019-07-14] MEDS: FUROSEMIDE 20 MG TABLET (FP) PO SCH (06:26)
[2019-07-14] MEDS: diphenhydrAMINE HCL 25 MG CAPSULE (FP) PO PRN (09:44)
[2019-07-14] MEDS: ISOSORBIDE MONONITRATE 60 MG TAB.SR.24H (FP) PO SCH (09:44)
[2019-07-14] MEDS: POTASSIUM CHLORIDE TABS 20 MEQ TABLET.ER (FP) PO SCH (09:44)
[2019-07-14] MEDS: traZODone HCL 100 MG TABLET (FP) PO SCH (09:44)
[2019-07-14] MEDS: DIGOXIN 0.125 MG TABLET (FP) PO SCH (09:44)
[2019-07-14] MEDS: LOSARTAN POTASSIUM 25 MG TABLET PO SCH (09:44)
[2019-07-14] MEDS: predniSONE 10 MG TABLET (UD) PO SCH (09:44)
[2019-07-14] MEDS: FOLIC ACID 1 MG TABLET (FP) PO SCH (09:44)
[2019-07-14] MEDS: APIXABAN 5 MG TABLET PO SCH (09:44)
[2019-07-14] MEDS: PANTOPRAZOLE 20 MG TABLET (FP) PO SCH (09:44)
[2019-07-14] MEDS: POLYETHYLENE GLYCOL 3350 119 GM BTL PO SCH (09:45)
[2019-07-14] MEDS: THIAMINE HCL 100 MG TABLET (FP) PO SCH (09:45)
[2019-07-14] MEDS: BUDESONIDE/FORMETEROL FUMARATE 80/4.5 mcg INHALER IH SCH (09:45)
[2019-07-14 09:46] VITALS: PULSE 99
[2019-07-14] MEDS: NYSTATIN 100000 UNIT/GM TOPICAL OINTMENT 15 GM TUBE TP SCH (09:46)
[2019-07-14 09:51] VITALS: BP 118/67; TEMP 98
== END 2019-07-14 12:20 | disposition home or self-care (01) | DRG 314 ==
LOC: JER 23:31 → JERBED 06-27 03:24 → JICU 06-27 03:54 → J5S 06-28 14:10
PROVIDERS: ADMIT Family Medicine; ATTEND Family Medicine
DX: I42.8 Other cardiomyopathies (principal); I50.23 Acute on chronic systolic (congestive) heart failure; E87.1 Hypo-osmolality and hyponatremia; J98.11 Atelectasis; K57.32 Diverticulitis of large intestine without perforation or abscess without bleeding; J44.1 Chronic obstructive pulmonary disease with (acute) exacerbation; I11.0 Hypertensive heart disease with heart failure; Z79.4 Long term (current) use of insulin; Z87.891 Personal history of nicotine dependence; E66.9 Obesity, unspecified; F41.9 Anxiety disorder, unspecified; Z68.34 Body mass index [BMI] 34.0-34.9, adult; I25.10 Atherosclerotic heart disease of native coronary artery without angina pectoris; I48.2 Chronic atrial fibrillation; G47.33 Obstructive sleep apnea (adult) (pediatric); E78.5 Hyperlipidemia, unspecified; D64.9 Anemia, unspecified; E87.8 Other disorders of electrolyte and fluid balance, not elsewhere classified; I27.20 Pulmonary hypertension, unspecified; E78.00 Pure hypercholesterolemia, unspecified; F10.20 Alcohol dependence, uncomplicated; R74.0 Nonspecific elevation of levels of transaminase and lactic acid dehydrogenase [LDH]; Z91.14 Patient's other noncompliance with medication regimen; I87.2 Venous insufficiency (chronic) (peripheral); R94.5 Abnormal results of liver function studies; R19.7 Diarrhea, unspecified; I34.0 Nonrheumatic mitral (valve) insufficiency; E11.9 Type 2 diabetes mellitus without complications; E87.6 Hypokalemia
CPT/HCPCS: 36415; 71045-TC-FY; 71250-TC; 74018-TC-FY; 74176-TC; 76705-TC; 80048; 80053; 80076; 80162; 80307; 82103; 82550; 82728; 82803; 82962; 83516; 83540; 83550; 83615; 83690; 83735; 83880; 83930; 83935; 84100; 84300; 84484; 85025; 85027; 85610; 86038; 86704; 86706; 86707; 86708; 86709; 87045; 87046; 87340; 87522; 93005; 93010; 93306-TC; 93970-TC; 94640; 97116-GP; 97161-GP; 99284-25; J0131; Q9967

== ENCOUNTER 2019-07-22 15:57 | Inpatient (IN) | payer OTHER ==
--- NOTE | 2019-07-22 17:04 | PDOC ---
History of Present Illness - General Chief Complaint: Shortness of Breath Stated Complaint: RESPIRATORY Time Seen by Provider: 07/22/19 16:55 - History of Present Illness Initial Comments: 07/22/19 17:34 The patient is a 64 year old male with a history of HTN, HLD, DM, CHF, COPD, afib on eloquis who presents for evaluation of lower extremity edema and SOB. The patient reports a 1 week history of worsening bilateral lower extremity pain and edema with associated orthopnea. He noted worsening SOB today and was told by his home health aid to present to the ED for further evaluation. He notes some intermittent chest pain as well, but otherwise denies fevers, chills , nausea, vomiting, abdominal pain, or changes with urination or bowel movements. Past History - Past Medical History Allergies/Adverse Reactions: Allergies Allergy/AdvReac Type Severity Reaction Status Date / Time Iodinated Contrast Media AdvReac Intermediate Nausea Verified 07/22/19 15:59 Home Medications: Ambulatory Orders Montelukast Na [Singulair -] 10 mg PO HS tablet 05/29/18 Albuterol 2.5/Ipratropium 0.5 [Duoneb -] 1 amp NEB Q6H PRN amp 09/03/18 Atorvastatin Ca [Lipitor] 40 mg PO HS tablet 09/03/18 Hydrocortisone 0.5% Ointment [Hytone 0.5% Ointment -] 1 applic TP BID PRN tube 09/03/18 Insulin Sliding Scale [Novolog Vial Sliding Scale -] 1 vial SQ ACHS units 09/03 Isosorbide Mononitrate [Imdur -] 60 mg PO DAILY tab.sr.24h 09/03/18 Furosemide [Lasix -] 40 mg PO BID@0600,1400 09/24/18 Acetaminophen [Tylenol .Regular Strength -] 650 mg PO Q6H PRN tablet 09/30/18 Apixaban [Eliquis -] 5 mg PO BID #30 tablet MDD 2 12/04/18 Digoxin [Lanoxin -] 0.125 mg PO DAILY #30 tablet MDD 1 12/04/18 Losartan Potassium [Cozaar -] 25 mg PO DAILY #30 tablet MDD 1 12/04/18 hydrOXYzine HCL [Atarax -] 25 mg PO Q6H PRN tablet 12/04/18 Insulin Glargine,Hum.rec.anlog [Basaglar Shayeikpen U-100] 34 unit SQ HS 06/27/19 Metoprolol Succinate [Toprol XL -] 25 mg PO DAILY 06/27/19 predniSONE [Deltasone -] 10 mg PO DAILY 06/27/19 traZODone HCL [Trazodone HCl] 100 mg PO DAILY 06/27/19 Budesonide/Formeterol Fumarate [SYMBICORT 80/4.5mcg -] 2 puff IH BID #1 inhaler 07/10/19 Folic Acid - 1 mg PO DAILY #30 tablet 07/10/19 Pantoprazole Sodium [Protonix -] 20 mg PO DAILY #30 tablet.ec 07/10/19 Polyethylene Glycol 3350 [Miralax 119 gm Btl -] 17 gm PO DAILY #1 bottle Thiamine HCl [Vitamin B1 -] 100 mg PO DAILY #30 tablet 07/10/19 metroNIDAZOLE [Flagyl -] 250 mg PO TID #21 tablet 07/10/19 Potassium Chloride [K-Dur -] 20 meq PO BID tablet.er 07/12/19 Anemia: Yes Asthma: Yes Cardiac Disorders: Yes (A.fib, CAD) COPD: Yes CHF: Yes Diabetes: Yes HTN: Yes Hypercholesterolemia: Yes Psychiatric Problems: Yes (anxiety/depression) - Surgical History Cardiac Surgery: Yes (Cardiac Stent) Orthopedic Surgery: Yes - Suicide/Smoking/Psychosocial Hx Smoking History: Former smoker Have you smoked in the past 12 months: No Number of Cigarettes Smoked Daily: 0 If you are a former smoker, when did you quit?: 2016 Information on smoking cessation initiated: No 'Breaking Loose' booklet given: 02/07/18 Hx Alcohol Use: Yes Drug/Substance Use Hx: No Substance Use Type: Alcohol, Marijuana Hx Substance Use Treatment: No Review of Systems - Review of Systems Comments:: 07/22/19 17:37 Constitutional: No fevers, chills, fatigue, malaise HEENT: No Rhinorrhea, nasal congestion, visual changes Cardiovascular: Chest pain. No syncope, palpitations, lightheadedness Respiratory: SOB. No Cough, Hemoptysis, Gastrointestinal: No Abdominal pain, Nausea, Vomiting, Constipation, Diarrhea, Melena Genitourinary: No Dysuria, Frequency, Urgency, Hesitancy, Hematuria, Flank pain Musculoskeletal: Lower extremity edema. No Myalgia, arthralgia Skin: Bilateral rashes inferior to the pectoral muscles. No itching, bruising, pallor Neurologic: No Headache, Dizziness, Numbness, Weakness, or Tingling Psychiatric: No Hallucinations. No SI or HI *Physical Exam - Vital Signs Last Vital Signs Temp Pulse Resp BP Pulse Ox 98.6 F 119 H 22 H 122/78 95 07/22/19 16:01 07/22/19 16:01 07/22/19 16:01 07/22/19 16:01 07/22/19 16:01 - Physical Exam Comments: 07/22/19 17:38 General Appearance: Nourished. No Apparent Distress HEENT: No Pharyngeal Erythema, Tonsillar Exudate, Tonsillar Erythema Neck: No Cervical Lymphadenopathy Respiratory/Chest: Lungs Clear, Diminished breath sounds bilaterally. No Crackles, Rales, Rhonchi, Cardiovascular: Regular Rhythm, Regular Rate. No Murmur, Gallops, Rubs Gastrointestinal/Abdominal: Normal Bowel Sounds, Soft. No Guarding, Rebound, Tenderness Musculoskeletal: No CVA Tenderness Extremity: 4+ pitting edema to the lower extremities bilaterally with erythema without warmth or purulent drainage. Normal Capillary Refill Integumentary: Macular blanching rash to the bilateral inferior pectoral muscles. Normal Color, Dry, Warm Neurologic: Fully Oriented, Alert, Normal Mood/Affect, Normal Response, ED Treatment Course - LABORATORY CBC & Chemistry Diagram: 07/25/19 06:00 07/25/19 05:40 Medical Decision Making - Medical Decision Making 07/22/19 17:40 The patient is a 64 year old male with a history of HTN, HLD, DM, CHF, COPD who presents for evaluation of lower extremity edema and SOB. Differential includes but is not limited to: CHF exacerbation, COPD exacerbation, ACS, Infectious, Metabolic Derangement. Given the patient's history and physical exam, we will obtain a cbc, cmp, troponin, bnp, ekg, chest plain film to evaluate further. We will treat with lasix, duonebs, lopressor, solumedrol and continue to monitor and reassess while here in the ED. The patient will likely require admission for further monitoring and management. 07/22/19 19:05 CBC, is unremarkable. Chest plain film is unremarkable. The patient was signed out to Dr. Oraha pending CMP, troponin, bnp and admission for further management. *DC/Admit/Observation/Transfer Diagnosis at time of Disposition: COPD with acute exacerbation, Chronic atrial fibrillation with RVR CHF (congestive heart failure) Qualifiers: Heart failure type: unspecified Heart failure chronicity: acute on chronic Qualified Code(s): I50.9 - Heart failure, unspecified - Discharge Dispostion Condition at time of disposition: Stable - Referrals - Patient Instructions - Post Discharge Activity
[2019-07-22] MEDS ORDERED: FUROSEMIDE 40 MG/4 ML INJECTABLE VIAL IVPUSH ONE (17:05)
[2019-07-22] MEDS ORDERED: FUROSEMIDE 40 MG/4 ML INJECTABLE VIAL ONE (17:10)
[2019-07-22] MEDS ORDERED: METOPROLOL TARTRATE 5 MG/5 ML VIAL IVPUSH ONE (18:07)
[2019-07-22] MEDS ORDERED: DIGOXIN 0.125 MG TABLET (FP) PO ONE (18:18)
[2019-07-22] MEDS ORDERED: ALBUTEROL SO4 2.5/IPRATROPIUM 0.5 INH SOL 3 ML VIAL.NEB. NEB ONE ×2 (18:18→19:16)
[2019-07-22] MEDS ORDERED: APIXABAN 5 MG TABLET PO ONE ×2 (18:19→19:16)
[2019-07-22] MEDS ORDERED: NYSTATIN 100,000 UNIT/GM TOPICAL CREAM 15 GM TUBE TP ONE (18:19)
--- NOTE | 2019-07-22 18:30 | PDOC ---
Documentation entered by Nancy Johnson SCRIBE, acting as scribe for Zeenat Paige DO. Zeenat Paige DO: This documentation has been prepared by the barakibe, Nancy Johnson SCRIBE, under my direction and personally reviewed by me in its entirety. I confirm that the documentation accurately reflects all work, treatment, procedures, and medical decision making performed by me. Attending Attestation - Resident Resident Name: Jose Schneider - ED Attending Attestation I have performed the following: I have examined & evaluated the patient, The case was reviewed & discussed with the resident, I agree w/resident's findings & plan, Exceptions are as noted - HPI HPI: 07/22/19 17:55 The patient is a 64-year-old male, with a past medical history of HTN, HLD, DM, CHF, and COPD, who presents to the ED for 1 week of progressively B/L LE swelling and shortness of breath. He also endorses intermittent chest pain. Patients symptoms worsened today so he advised that his home health aide bring him to the ED for further evaluation. - Physicial Exam PE: 07/22/19 17:55 GENERAL: Awake, alert, and fully oriented, in no acute distress HEAD: No signs of trauma EYES: PERRLA, EOMI, sclera anicteric, conjunctiva clear ENT: Auricles normal inspection, hearing grossly normal, nares patent, oropharynx clear without exudates. Moist mucosa NECK: Normal ROM, supple, no lymphadenopathy, JVD, or masses LUNG:(+)Lungs diminished, tachypneic. (+)Conversational dyspnea. Breath sounds equal, clear to auscultation bilaterally. No wheezes, and no crackles HEART: (+)Irregularly irregular, fast. Normal S1 and S2, no murmurs, rubs or gallops ABDOMEN: (+)Obese belly but soft. Nontender, normoactive bowel sounds. No guarding, no rebound. No masses EXTREMITIES: (+)Bilateral 3+ pitting edema. (+)B/L anterior tibia redness which is chronic. Area is not warm. Normal range of motion. No clubbing or cyanosis. No cords. NEUROLOGICAL: Cranial nerves II through XII grossly intact. Normal speech, normal gait SKIN: (+)Fungal infection noted under breast tissue. Warm, Dry, normal turgor - Medical Decision Making 07/22/19 18:21 I, Dr. Zeenat Paige, DO, attest that this document has been prepared under my direction and personally reviewed by me in its entirety. I further attest, that it accurately reflects all work, treatment, procedures and medical decision -making performed by me. 07/22/19 18:22 a/p: 64yo male with cp, sob, tachypnea, leg pain -pt states he did not take his meds today because of confusion with the pharmacist and new rx since given 2 weeks ago -pt arrives in afib w rvr - on oral metoprolol and digoxin, ac -pt also states he did not take his lasix today -pt with LE swelling -concern for copd and chf exacerbation -will give nebs, meds for afib, lasix -pt will need admission -states LE swelling and redness is chronic 07/22/19 18:47 cxr does not show an acute infiltrate 07/22/19 21:19 elevated bnp trop neg cxr clear resident discussed the case with JENSENHOBILL - IDALIA Jacobs who accepts pt to service for Dr. Wooten overnight Heart Score/ECG Review - ECG Intrepretation Comment:: 07/22/19 18:21 afib at 122, rvr, nl axis, no acute st/t wave findings
[2019-07-22 18:35] LABS: BASO % 1.1 % (0-2.0); EOS % 3.8 % (0-4.5); HEMATOCRIT 38.8 % (35.4-49); HEMOGLOBIN 12.6 GM/dL (11.7-16.9); LYMPH % 7.8 % (8-40); MCH 28.8 pg (25.7-33.7); MCHC 32.4 g/dl (32.0-35.9); MEAN CELL VOLUME 88.9 fl (80-96); MEAN PLT VOLUME 10.6 fl (7.5-11.1); MONO % 8.7 % (3.8-10.2); NEUT % 78.6 % (42.8-82.8); PLATELET COUNT 233 K/MM3 (134-434); RBC 4.36 M/mm3 (4.00-5.60); RDW 19.9 % (11.9-15.9); WHITE BLOOD COUNT 12.2 K/mm3 (4.0-10.0)
[2019-07-22 18:59] LABS: INR 1.13 (0.83-1.09); PROTHROMBIN TIME (PATIENT) 13.4 SEC (9.7-13.0)
[2019-07-22 19:02] LABS: ACTIVATED PTT 32.6 SECONDS (25.2-36.5)
[2019-07-22 19:08] LABS: ALBUMIN 2.9 g/dl (3.4-5.0); ALK PHOS 172 U/L (45-117); ANION GAP 13 MMOL/L (8-16); BLOOD UREA NITROGEN 7.7 mg/dL (7-18); CALCIUM 8.8 mg/dL (8.5-10.1); CHLORIDE 93 mmol/L (98-107); CO2 26 mmol/L (21-32); CREATININE 0.9 mg/dL (0.55-1.3); GLUCOSE,RANDOM 97 mg/dL (74-106); N-TERMINAL BNP 2402.6 pg/ml (5-125); POTASSIUM 4.1 mmol/L (3.5-5.1); SGOT/AST 27 U/L (15-37); SGPT/ALT 22 U/L (13-61); SODIUM 132 mmol/L (136-145); TOT PROT 7.5 g/dl (6.4-8.2)
[2019-07-22] MEDS ORDERED: methylPREDNISolone NA SUCC 125 MG/2 ML VIAL IVPUSH ONE (19:10)
[2019-07-22] MEDS ORDERED: METOPROLOL TARTRATE 5 MG/5 ML VIAL ONE (19:17)
[2019-07-22] MEDS ORDERED: DIGOXIN 0.125 MG TABLET (FP) ONE (19:17)
--- NOTE | 2019-07-22 22:43 | HP ---
Admitting History and Physical - Primary Care Physician PCP: Dr. Wooten - Admission Chief Complaint: SOB History of Present Illness: 64 year old male with a PMhX of HTN, HLD, DM, CHF, COPD, afib on eliquis who arrived to ED for evaluation for lower extremity edema and SOB. Patient reports worsening bilateral lower extremity pain and edema with associated orthopnea for 1 week. Patient states he did not take his meds today because of confusion with the pharmacist and new prescription since given 2 weeks ago. SOB was worse today and was told by his home health aid to come to ED for further evaluation. Patient denies fevers, chills, nausea, vomiting, abdominal pain, or changes with urination or bowel movements. History Source: Patient Limitations to Obtaining History: Clinical Condition - Past Medical History Cardiovascular: Yes: AFIB, CAD, CHF, HTN Pulmonary: Yes: COPD, Sleep Apnea Gastrointestinal: Yes: Constipation Psych: Yes: Anxiety Endocrine: Yes: Diabetes Mellitus - Past Surgical History Past Surgical History: Yes: Stent - Smoking History Have you smoked in the past 12 months: No Aproximately how many cigarettes per day: 0 If you are a former smoker, when did you quit?: 2016 - Alcohol/Substance Use Hx Alcohol Use: Yes (1-2 beer twice a month ) History of Substance Use: reports: None, Marijuana - Social History Usual Living Arrangement: Yes: Other (Health aid at home) ADL: Support Services (ambulates with cane) 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 History of Recent Travel: No Home Medications - Allergies Allergies/Adverse Reactions: Allergies Allergy/AdvReac Type Severity Reaction Status Date / Time Iodinated Contrast Media AdvReac Intermediate Nausea Verified 07/22/19 15:59 - Home Medications Home Medications: Ambulatory Orders Montelukast Na [Singulair -] 10 mg PO HS tablet 05/29/18 Albuterol 2.5/Ipratropium 0.5 [Duoneb -] 1 amp NEB Q6H PRN amp 09/03/18 Atorvastatin Ca [Lipitor] 40 mg PO HS tablet 09/03/18 Hydrocortisone 0.5% Ointment [Hytone 0.5% Ointment -] 1 applic TP BID PRN tube 09/03/18 Insulin Sliding Scale [Novolog Vial Sliding Scale -] 1 vial SQ ACHS units 09/03 Isosorbide Mononitrate [Imdur -] 60 mg PO DAILY tab.sr.24h 09/03/18 Furosemide [Lasix -] 40 mg PO BID@0600,1400 09/24/18 Acetaminophen [Tylenol .Regular Strength -] 650 mg PO Q6H PRN tablet 09/30/18 Apixaban [Eliquis -] 5 mg PO BID #30 tablet MDD 2 12/04/18 Digoxin [Lanoxin -] 0.125 mg PO DAILY #30 tablet MDD 1 12/04/18 Losartan Potassium [Cozaar -] 25 mg PO DAILY #30 tablet MDD 1 12/04/18 hydrOXYzine HCL [Atarax -] 25 mg PO Q6H PRN tablet 12/04/18 Insulin Glargine,Hum.rec.anlog [Basaglar Kwikpen U-100] 34 unit SQ HS 06/27/19 Metoprolol Succinate [Toprol XL -] 25 mg PO DAILY 06/27/19 predniSONE [Deltasone -] 10 mg PO DAILY 06/27/19 traZODone HCL [Trazodone HCl] 100 mg PO DAILY 06/27/19 Budesonide/Formeterol Fumarate [SYMBICORT 80/4.5mcg -] 2 puff IH BID #1 inhaler 07/10/19 Folic Acid - 1 mg PO DAILY #30 tablet 07/10/19 Pantoprazole Sodium [Protonix -] 20 mg PO DAILY #30 tablet.ec 07/10/19 Polyethylene Glycol 3350 [Miralax 119 gm Btl -] 17 gm PO DAILY #1 bottle Thiamine HCl [Vitamin B1 -] 100 mg PO DAILY #30 tablet 07/10/19 metroNIDAZOLE [Flagyl -] 250 mg PO TID #21 tablet 07/10/19 Potassium Chloride [K-Dur -] 20 meq PO BID tablet.er 07/12/19 Family Disease History - Family Disease History Family Disease History: Respiratory: Mother (Asthma, age 35), Other: Father (Alcoholic, ), Brother (6, healthy), Sister (7, healthy), Daughter (3, healthy) Review of Systems - Review of Systems Constitutional: reports: No Symptoms Eyes: reports: No Symptoms HENT: reports: No Symptoms Neck: reports: No Symptoms Respiratory: reports: SOB, SOB on Exertion Gastrointestinal: reports: No Symptoms Genitourinary: reports: No Symptoms Musculoskeletal: reports: No Symptoms Integumentary: reports: Rash (Bilateral rashes inferior to the pectoral muscles) Neurological: reports: No Symptoms Endocrine: reports: No Symptoms Physical Examination Vital Signs: Vital Signs Temperature 98.6 F 07/22/19 16:01 Pulse Rate 119 H 07/22/19 16:01 Respiratory Rate 22 H 07/22/19 16:01 Blood Pressure 127/76 07/22/19 19:18 O2 Sat by Pulse Oximetry (%) 95 07/22/19 16:01 Constitutional: Yes: Well Nourished, No Distress Eyes: Yes: Conjunctiva Clear, EOM Intact HENT: Yes: Atraumatic, Normocephalic Neck: Yes: Supple, Trachea Midline Cardiovascular: Yes: Regular Rate and Rhythm Respiratory: Yes: Regular, CTA Bilaterally Gastrointestinal: Yes: Normal Bowel Sounds, Soft Extremities: Yes: Other (4+ pitting edema B/L LE with erythema without warmth or purulent drainage) Integumentary: Yes: Rash (Macular blanching rash to chest) Neurological: Yes: Alert, Oriented Psychiatric: Yes: Alert, Oriented Labs: CBC, BMP 07/22/19 17:47 07/22/19 17:47 Imaging - Results Chest X-ray: Report Reviewed (no acute infiltrate) EKG: Report Reviewed (A-fib at 122, RVR, no acute st changes) Problem List - Problems (1) Acute on chronic diastolic CHF (congestive heart failure) Code(s): I50.33 - ACUTE ON CHRONIC DIASTOLIC (CONGESTIVE) HEART FAILURE (2) Chronic atrial fibrillation with RVR Code(s): I48.2 - CHRONIC ATRIAL FIBRILLATION (3) COPD (chronic obstructive pulmonary disease) Code(s): J44.9 - CHRONIC OBSTRUCTIVE PULMONARY DISEASE, UNSPECIFIED Qualifiers: COPD type: unspecified COPD Qualified Code(s): J44.9 - Chronic obstructive pulmonary disease, unspecified (4) Diabetes Code(s): E11.9 - TYPE 2 DIABETES MELLITUS WITHOUT COMPLICATIONS Qualifiers: Diabetes mellitus type: type 2 (5) Hypercholesterolemia Code(s): E78.0 - PURE HYPERCHOLESTEROLEMIA * DO NOT USE * (6) Hypertension Code(s): I10 - ESSENTIAL (PRIMARY) HYPERTENSION Qualifiers: Hypertension type: essential hypertension Qualified Code(s): I10 - Essential (primary) hypertension (7) Constipation Code(s): K59.00 - CONSTIPATION, UNSPECIFIED (8) GERD (gastroesophageal reflux disease) Code(s): K21.9 - GASTRO-ESOPHAGEAL REFLUX DISEASE WITHOUT ESOPHAGITIS (9) Urticarial rash Code(s): L50.9 - URTICARIA, UNSPECIFIED Assessment/Plan 64 year old male with a history of HTN, HLD, DM, CHF, COPD who presents for evaluation of lower extremity edema and SOB. # Acute on Chronic CHF exacerbation # Chronic A-fib with RVR -EKG: a-fib at 22 rvr, no st changes - trops negative - cxr: no acute infiltrate - In ED given: on oral metoprolol 5mg IV push and digoxin 0.125mcg, eliquis 5mg - given lasix 40 mg Iv push, nebs - will continues with lasix 40 IV push BID - continue with Apixaban 5 mg PO BID - continue with Digoxin 0.125 mg PO DAILY - continue with Potassium Chloride 20 meq PO BID - follow up cbc, bmp in AM - monitor I & O - fluid restriction 1 L - if noted with acute sob, spo2 less than 85% consider BIPAP - follow up up cardiology in AM # COPD - Duoneb NEB Q6H PRN - Montelukast Na 10 mg PO HS - Budesonide/Formeterol Fumarate 2 puff IH BID # HTN/ HLD - Losartan Potassium 25 mg PO DAILY - Metoprolol Succinate 25 mg PO DAILY - Isosorbide Mononitrate 60 mg PO DAILY - Atorvastatin Ca 40 mg PO HS # DM - Monitor FSBS, coverage with sliding scale - Insulin Glargine 34 unit SQ HS # Rash, Urticaria - hydrOXYzine HCL 25 mg PO Q6H PRN - Hydrocortisone cream apply directly to area daily # Constipation #GERD Pantoprazole Sodium [Protonix -] 20 mg PO DAILY #30 tablet.ec 07/10/19 Polyethylene Glycol 3350 [Miralax 119 gm Btl -] 17 gm PO DAILY #1 bottle Visit type - Emergency Visit Emergency Visit: Yes ED Registration Date: 07/22/19 Care time: The patient presented to the Emergency Department on the above date and was hospitalized for further evaluation of their emergent condition. - New Patient This patient is new to me today: Yes Date on this admission: 07/22/19 - Critical Care Critical Care patient: No
[2019-07-22] MEDS ORDERED: HYDROCORTISONE 0.5% TOPICAL OINTMENT TUBE TP PRN (23:19)
[2019-07-22] MEDS ORDERED: ALBUTEROL SO4 2.5/IPRATROPIUM 0.5 INH SOL 3 ML VIAL.NEB. NEB PRN (23:19)
[2019-07-22] MEDS ORDERED: hydrOXYzine HCL 25 MG TABLET (FP) PO PRN (23:19)
[2019-07-23 01:09] VITALS: BMI 36.1
[2019-07-23] MEDS: HYDROCORTISONE 0.5% TOPICAL CREAM 30 GM TUBE TP PRN ×2 (01:11→10:37)
[2019-07-23] MEDS: MELATONIN 1 MG TABLET PO SCH ×2 (01:40→22:41)
[2019-07-23] MEDS ORDERED: guaiFENesin/D-METHORPHAN HB 10 ML UNIT-DOSE CUPS PO ONE (03:29)
[2019-07-23] MEDS: ACETAMINOPHEN 325 MG TABLET (FP) PO PRN (04:46)
[2019-07-23] MEDS: INSULIN SLIDING SCALE (NOVOLOG) 1 VIAL SQ SCH ×3 (06:11→16:54)
[2019-07-23 07:33] LABS: BLOOD UREA NITROGEN 10.8 mg/dL (7-18); CALCIUM 8.7 mg/dL (8.5-10.1); POTASSIUM 3.8 mmol/L (3.5-5.1)
[2019-07-23 07:44] LABS: BASO % 0.8 % (0-2.0); EOS % 3.1 % (0-4.5); HEMATOCRIT 34.8 % (35.4-49); HEMOGLOBIN 11.5 GM/dL (11.7-16.9); MCH 29.2 pg (25.7-33.7); MCHC 33.1 g/dl (32.0-35.9); MEAN CELL VOLUME 88.3 fl (80-96); MEAN PLT VOLUME 10.5 fl (7.5-11.1); MONO % 8.8 % (3.8-10.2); NEUT % 79.3 % (42.8-82.8); PLATELET COUNT 206 K/MM3 (134-434); RBC 3.94 M/mm3 (4.00-5.60); RDW 20.2 % (11.9-15.9); WHITE BLOOD COUNT 9.5 K/mm3 (4.0-10.0)
[2019-07-23] MEDS ORDERED: traZODone HCL 50 MG TABLET (FP) ONE (09:55)
[2019-07-23] MEDS: ISOSORBIDE MONONITRATE 60 MG TAB.SR.24H (FP) PO SCH (10:28)
[2019-07-23] MEDS: DIGOXIN 0.125 MG TABLET (FP) PO SCH (10:28)
[2019-07-23] MEDS: metoPROLOL SUCCINATE 25 MG TAB.SR.24H (FP) PO SCH (10:29)
[2019-07-23] MEDS: traZODone HCL 100 MG TABLET (FP) PO SCH (10:29)
[2019-07-23] MEDS: PANTOPRAZOLE 20 MG TABLET (FP) PO SCH (10:29)
[2019-07-23] MEDS: APIXABAN 5 MG TABLET PO SCH ×2 (10:29→22:41)
[2019-07-23] MEDS: POTASSIUM CHLORIDE TABS 20 MEQ TABLET.ER (FP) PO SCH ×3 (10:29→22:46)
[2019-07-23] MEDS: LOSARTAN POTASSIUM 25 MG TABLET PO SCH (10:32)
[2019-07-23] MEDS: POLYETHYLENE GLYCOL 3350 119 GM BTL PO SCH (10:35)
[2019-07-23] MEDS: BUDESONIDE/FORMETEROL FUMARATE 80/4.5 mcg INHALER IH SCH ×2 (11:29→22:42)
[2019-07-23] MEDS ORDERED: CEFTRIAXONE 1 GM in DEXTROSE 5%-WATER - 50 ML IVPB ONE (13:00)
[2019-07-23] MEDS ORDERED: FUROSEMIDE 40 MG/4 ML INJECTABLE VIAL IVPUSH SCH (13:00)
--- NOTE | 2019-07-23 13:02 | PN ---
Progress Note, Physician Chief Complaint: pateint admitted with shortness of breath inc fluid in legs and erythema of legs - Current Medication List Current Medications: Active Medications Acetaminophen (Tylenol -) 650 mg PO Q6H PRN PRN Reason: PAIN OR FEVER Last Admin: 07/23/19 04:46 Dose: 650 mg Albuterol/Ipratropium (Duoneb -) 1 amp NEB QIDR PRN PRN Reason: SHORTNESS OF BREATH Apixaban (Eliquis -) 5 mg PO BID [facility] Last Admin: 07/23/19 10:29 Dose: 5 mg Atorvastatin Calcium (Lipitor -) 40 mg PO HS [facility] Budesonide/Formoterol Fumarate (Symbicort 80/4.5mcg -) 2 puff IH BID [facility] Last Admin: 07/23/19 11:29 Dose: 2 puff Digoxin (Lanoxin -) 0.125 mg PO DAILY [facility] Last Admin: 07/23/19 10:28 Dose: 0.125 mg Furosemide (Lasix Injection -) 40 mg IVPUSH DAILY [facility] Hydrocortisone (Hytone 0.5% Cream -) 1 applic TP BID PRN PRN Reason: DRY SKIN Last Admin: 07/23/19 10:37 Dose: 1 applic Hydroxyzine HCl (Atarax -) 25 mg PO Q6H PRN PRN Reason: FOR ITCHING Last Admin: 07/23/19 01:12 Dose: 25 mg Insulin Aspart (Novolog Vial Sliding Scale -) 1 vial SQ TIDAC [facility]; Protocol Last Admin: 07/23/19 11:30 Dose: Not Given Insulin Detemir (Levemir Vial) 34 units SQ [facility] Isosorbide Mononitrate (Imdur -) 60 mg PO DAILY [facility] Last Admin: 07/23/19 10:28 Dose: 60 mg Losartan Potassium (Cozaar -) 25 mg PO DAILY [facility] Last Admin: 07/23/19 10:32 Dose: 25 mg Melatonin (Melatonin) 3 mg PO [facility] Last Admin: 07/23/19 01:40 Dose: 3 mg Metoprolol Succinate (Toprol Xl -) 25 mg PO DAILY [facility] Last Admin: 07/23/19 10:29 Dose: 25 mg Montelukast Sodium (Singulair -) 10 mg PO [facility] Pantoprazole Sodium (Protonix -) 20 mg PO DAILY [facility] Last Admin: 07/23/19 10:29 Dose: 20 mg Polyethylene Glycol (Miralax (For Daily Use) -) 17 gm PO DAILY [facility] Last Admin: 07/23/19 10:35 Dose: Not Given Potassium Chloride (K-Dur -) 20 meq PO BID [facility] Last Admin: 07/23/19 10:29 Dose: 20 meq Trazodone HCl (Desyrel -) 100 mg PO DAILY [facility] Last Admin: 07/23/19 10:29 Dose: 100 mg - Objective Vital Signs: Vital Signs Temperature 97.8 F 07/23/19 10:00 Pulse Rate 109 H 07/23/19 10:28 Respiratory Rate 20 07/23/19 10:00 Blood Pressure 108/66 07/23/19 10:00 O2 Sat by Pulse Oximetry (%) 97 07/23/19 07:50 Constitutional: Yes: Calm Cardiovascular: Yes: Regular Rate and Rhythm, S1, S2 Respiratory: Yes: Diminished Gastrointestinal: Yes: Normal Bowel Sounds, Soft, Distention Extremities: Yes: Erythema Edema: Yes Labs: CBC, BMP 07/23/19 05:12 07/23/19 05:12 INR, PTT INR 1.13 (0.83-1.09) H 07/22/19 17:47 Problem List - Problems (1) Acute on chronic diastolic CHF (congestive heart failure) Assessment/Plan: iv lasix Code(s): I50.33 - ACUTE ON CHRONIC DIASTOLIC (CONGESTIVE) HEART FAILURE (2) Atrial fibrillation Assessment/Plan: digoxin elilquis metoprolol Code(s): I48.91 - UNSPECIFIED ATRIAL FIBRILLATION Qualifiers: Atrial fibrillation type: persistent Qualified Code(s): I48.1 - Persistent atrial fibrillation (3) Cellulitis Assessment/Plan: iv abx ID consult Code(s): L03.90 - CELLULITIS, UNSPECIFIED (4) COPD (chronic obstructive pulmonary disease) Assessment/Plan: bronchodilators singulair Code(s): J44.9 - CHRONIC OBSTRUCTIVE PULMONARY DISEASE, UNSPECIFIED Qualifiers: COPD type: unspecified COPD Qualified Code(s): J44.9 - Chronic obstructive pulmonary disease, unspecified (5) Diabetes Assessment/Plan: bgm levemir Code(s): E11.9 - TYPE 2 DIABETES MELLITUS WITHOUT COMPLICATIONS Qualifiers: Diabetes mellitus type: type 2
[2019-07-23] MEDS ORDERED: cefTRIAXone SODIUM 1 GM VIAL ONE (14:12)
[2019-07-23] MEDS ORDERED: DEXTROSE 5%-WATER - 50 ML IVPB ONE ×2 (14:12→20:20)
--- NOTE | 2019-07-23 14:37 | CON.CARD ---
Consult Consult Specialty:: Cardiology Referred by:: Sugar Reason for Consultation:: CHF - History of Present Illness Chief Complaint: SOB History of Present Illness: 64 year old male with a PMHx of HTN, DM, HLD, mild non-obstructive CAD from cardiac cath on 07/25/2016 at [facility], systolic CHF secondary to non-ischemic cardiomyopathy with known low EF 30-35%, chronic afib (on Eliquis) and COPD admitted with SOB and orthopnea for one week. No chest pain. He has been taking his medications but is non compliant with diet and fluid restriction. Echocardiogram 06/29/19: EF 25-30%. Moderate MR. Mild TR - History Source History Provided By: Patient, Medical Record - Past Medical History Cardio/Vascular: Yes: AFIB, CAD, CHF, HTN Pulmonary: Yes: COPD, Sleep Apnea Gastrointestinal: Yes: Constipation Psych: Yes: Anxiety Endocrine: Yes: Diabetes Mellitus - Past Surgical History Past Surgical History: Yes: Stent - Alcohol/Substance Use Hx Alcohol Use: Yes (1-2 beer twice a month ) History of Substance Use: reports: None, Marijuana - Smoking History Smoking history: Former smoker Have you smoked in the past 12 months: No Aproximately how many cigarettes per day: 0 If you are a former smoker, when did you quit?: 2016 - Social History ADL: Support Services (ambulates with cane) Occupation: Disabled: 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 History of Recent Travel: No Home Medications - Allergies Allergies/Adverse Reactions: Allergies Allergy/AdvReac Type Severity Reaction Status Date / Time Iodinated Contrast Media AdvReac Intermediate Nausea Verified 07/22/19 15:59 - Home Medications Home Medications: Ambulatory Orders Montelukast Na [Singulair -] 10 mg PO HS tablet 05/29/18 Albuterol 2.5/Ipratropium 0.5 [Duoneb -] 1 amp NEB Q6H PRN amp 09/03/18 Atorvastatin Ca [Lipitor] 40 mg PO HS tablet 09/03/18 Hydrocortisone 0.5% Ointment [Hytone 0.5% Ointment -] 1 applic TP BID PRN tube 09/03/18 Insulin Sliding Scale [Novolog Vial Sliding Scale -] 1 vial SQ ACHS units 09/03 Isosorbide Mononitrate [Imdur -] 60 mg PO DAILY tab.sr.24h 09/03/18 Furosemide [Lasix -] 40 mg PO BID@0600,1400 09/24/18 Acetaminophen [Tylenol .Regular Strength -] 650 mg PO Q6H PRN tablet 09/30/18 Apixaban [Eliquis -] 5 mg PO BID #30 tablet MDD 2 12/04/18 Digoxin [Lanoxin -] 0.125 mg PO DAILY #30 tablet MDD 1 12/04/18 Losartan Potassium [Cozaar -] 25 mg PO DAILY #30 tablet MDD 1 12/04/18 hydrOXYzine HCL [Atarax -] 25 mg PO Q6H PRN tablet 12/04/18 Insulin Glargine,Hum.rec.anlog [Basaglar Kwikpen U-100] 34 unit SQ HS 06/27/19 Metoprolol Succinate [Toprol XL -] 25 mg PO DAILY 06/27/19 predniSONE [Deltasone -] 10 mg PO DAILY 06/27/19 traZODone HCL [Trazodone HCl] 100 mg PO DAILY 06/27/19 Budesonide/Formeterol Fumarate [SYMBICORT 80/4.5mcg -] 2 puff IH BID #1 inhaler 07/10/19 Folic Acid - 1 mg PO DAILY #30 tablet 07/10/19 Pantoprazole Sodium [Protonix -] 20 mg PO DAILY #30 tablet.ec 07/10/19 Polyethylene Glycol 3350 [Miralax 119 gm Btl -] 17 gm PO DAILY #1 bottle Thiamine HCl [Vitamin B1 -] 100 mg PO DAILY #30 tablet 07/10/19 metroNIDAZOLE [Flagyl -] 250 mg PO TID #21 tablet 07/10/19 Potassium Chloride [K-Dur -] 20 meq PO BID tablet.er 07/12/19 Family Disease History - Family Disease History Family Disease History: Respiratory: Mother (Asthma, age 35), Other: Father (Alcoholic, ), Brother (6, healthy), Sister (7, healthy), Daughter (3, healthy) Vital Signs: Vital Signs Temperature 97.8 F 07/23/19 10:00 Pulse Rate 109 H 07/23/19 10:28 Respiratory Rate 20 07/23/19 10:00 Blood Pressure 108/66 07/23/19 10:00 O2 Sat by Pulse Oximetry (%) 97 07/23/19 07:50 Constitutional: Yes: No Distress, Calm Eyes: Yes: EOM Intact HENT: Yes: Normocephalic Neck: Yes: Trachea Midline Respiratory: Yes: CTA Bilaterally Gastrointestinal: Yes: Normal Bowel Sounds, Soft Cardiovascular: Yes: Regular Rate and Rhythm JVD: Yes Carotid Bruit: No PMI: Non-Displaced Heart Sounds: Yes: S1, S2 Edema: Yes Edema: LLE: 2+, RLE: 2+ Peripheral Pulses WNL: No - Other Data Labs, Other Data: CBC, BMP 07/23/19 05:12 07/23/19 05:12 INR, PTT INR 1.13 (0.83-1.09) H 07/22/19 17:47 Troponin, BNP 07/22/19 17:47 Troponin I < 0.02 B-Natriuretic Peptide 2402.6 H Troponin, BNP 07/22/19 17:47 Troponin I < 0.02 B-Natriuretic Peptide 2402.6 H Imaging - Results Chest X-ray: Report Reviewed (chf) EKG: Report Reviewed Assessment/Plan 64 year old male with a PMHx of HTN, DM, HLD, mild non-obstructive CAD from cardiac cath on 07/25/2016 at [facility], systolic CHF secondary to non-ischemic cardiomyopathy with known low EF 30-35%, chronic afib (on Eliquis) and COPD admitted with SOB and orthopnea for one week. No chest pain. He has been taking his medications but is non compliant with diet and fluid restriction. Echocardiogram 06/29/19: EF 25-30%. Moderate MR. Mild TR Plan: 1. Afib -rates are controlled. continue eliquis. continue dig and BB. 2. CHF -continue IV diuretics, Increase lasix to 40 BID. -continue metoprolol and ARB -daily weights -fluid restriction 2 liters -diet education if available.
--- NOTE | 2019-07-23 15:29 | EKG ---
Test Reason : Blood Pressure : / mmHG Vent. Rate : 122 BPM Atrial Rate : 113 BPM P-R Int : 000 ms QRS Dur : 090 ms QT Int : 342 ms P-R-T Axes : 000 005 081 degrees QTc Int : 487 ms ATRIAL FIBRILLATION WITH RAPID VENTRICULAR RESPONSE ABNORMAL ECG WHEN COMPARED WITH ECG OF 26-JUN-2019 23:54, NONSPECIFIC T WAVE ABNORMALITY, IMPROVED IN LATERAL LEADS Confirmed by JULIO POWELL, KATELIN ([id number]) on 07/23/2019 3:29:24 PM Referred By: Confirmed By:KATELIN KIM MD
--- NOTE | 2019-07-23 17:18 | PN ---
Progress Note (short form) - Note Progress Note: ID consult dictated imp/reccd 64 yo man admitted with SOB and worsening leg edema and erythema no fevers he has itchy rash under his axilla, below his breasts, and in his inguinal area- this started while he was at home CHF cellulitis rash blood cultures cefazolin for cellulitis lotrisone for rash- would ask dermatology to see
[2019-07-23] MEDS: NYSTATIN 500,000 UNITS/5 ML SUSPENSION PO SCH (18:13)
[2019-07-23] MEDS ORDERED: CEFAZOLIN 1 GM/D5W 1 GM/50 ML BAG IVPB SCH (19:00)
[2019-07-23] MEDS ORDERED: ceFAZolin SODIUM 1 GM VIAL ONE (20:20)
[2019-07-23] MEDS: CEFAZOLIN 1 GM in DEXTROSE 5%-WATER - 50 ML IVPB SCH (20:40)
[2019-07-23] MEDS ORDERED: PATIENT'S OWN MEDICATION (NON-FORMULARY) (Insulin Glargine,Hum.Rec.Anlog [Basaglar Kwikpen SQ SCH (22:00)
[2019-07-23] MEDS ORDERED: INSULIN (LEVEMIR) 100 UNITS/ML UNITS SQ SCH (22:00)
[2019-07-23] MEDS: ATORVASTATIN CA 40 MG TABLET (FP) PO SCH (22:40)
[2019-07-23] MEDS: MONTELUKAST NA 10 MG TABLET PO SCH (22:41)
[2019-07-23] MEDS: CLOTRIMAZOLE/BETAMET DIPROP 15 GM TUBE TP SCH (22:41)
[2019-07-23] MEDS: INSULIN (LEVEMIR) 100 UNITS/ML UNITS SQ SCH (22:42)
[2019-07-24] MEDS: NYSTATIN 500,000 UNITS/5 ML SUSPENSION PO SCH ×4 (01:05→17:28)
[2019-07-24] MEDS ORDERED: DEXTROSE 5%-WATER - 100 ML IVPB ONE (01:13)
[2019-07-24] MEDS ORDERED: ceFAZolin SODIUM 1 GM VIAL ONE ×3 (01:13→15:52)
[2019-07-24] MEDS ORDERED: CEFAZOLIN 1 GM in DEXTROSE 5%-WATER - 50 ML IVPB SCH (02:00)
[2019-07-24] MEDS: CEFAZOLIN 1 GM in DEXTROSE 5%-WATER - 50 ML IVPB SCH ×3 (02:53→17:27)
[2019-07-24] MEDS: INSULIN SLIDING SCALE (NOVOLOG) 1 VIAL SQ SCH ×3 (06:55→17:31)
[2019-07-24] MEDS: FUROSEMIDE 40 MG/4 ML INJECTABLE VIAL IVPUSH SCH ×2 (06:57→13:51)
[2019-07-24] MEDS: ACETAMINOPHEN 325 MG TABLET (FP) PO PRN (07:01)
[2019-07-24 08:16] LABS: BASO % 0.7 % (0-2.0); EOS % 4.6 % (0-4.5); HEMATOCRIT 33.4 % (35.4-49); HEMOGLOBIN 10.9 GM/dL (11.7-16.9); LYMPH % 6.1 % (8-40); MCH 29.3 pg (25.7-33.7); MCHC 32.7 g/dl (32.0-35.9); MEAN CELL VOLUME 89.6 fl (80-96); MEAN PLT VOLUME 10.2 fl (7.5-11.1); MONO % 7.3 % (3.8-10.2); NEUT % 81.3 % (42.8-82.8); PLATELET COUNT 186 K/MM3 (134-434); RBC 3.73 M/mm3 (4.00-5.60); RDW 20.3 % (11.9-15.9); WHITE BLOOD COUNT 9.1 K/mm3 (4.0-10.0)
[2019-07-24 08:29] LABS: ALBUMIN 2.4 g/dl (3.4-5.0); BILIRUBIN,TOTAL 0.7 mg/dL (0.2-1); BLOOD UREA NITROGEN 14.2 mg/dL (7-18); CALCIUM 8.2 mg/dL (8.5-10.1); CREATININE 0.9 mg/dL (0.55-1.3); POTASSIUM 3.3 mmol/L (3.5-5.1); TOT PROT 6.3 g/dl (6.4-8.2)
[2019-07-24] MEDS ORDERED: traZODone HCL 50 MG TABLET (FP) ONE (09:38)
[2019-07-24] MEDS ORDERED: DEXTROSE 5%-WATER - 50 ML IVPB ONE ×2 (09:39→15:52)
[2019-07-24] MEDS: CLOTRIMAZOLE/BETAMET DIPROP 15 GM TUBE TP SCH ×2 (10:19→22:01)
[2019-07-24] MEDS: ISOSORBIDE MONONITRATE 60 MG TAB.SR.24H (FP) PO SCH (10:20)
[2019-07-24] MEDS: metoPROLOL SUCCINATE 25 MG TAB.SR.24H (FP) PO SCH (10:20)
[2019-07-24] MEDS: DIGOXIN 0.125 MG TABLET (FP) PO SCH (10:20)
[2019-07-24] MEDS: POTASSIUM CHLORIDE TABS 20 MEQ TABLET.ER (FP) PO SCH (10:21)
[2019-07-24] MEDS: LOSARTAN POTASSIUM 25 MG TABLET PO SCH (10:21)
[2019-07-24] MEDS: APIXABAN 5 MG TABLET PO SCH ×2 (10:22→21:59)
[2019-07-24] MEDS: POLYETHYLENE GLYCOL 3350 119 GM BTL PO SCH (10:22)
[2019-07-24] MEDS: PANTOPRAZOLE 20 MG TABLET (FP) PO SCH (10:22)
[2019-07-24] MEDS: traZODone HCL 100 MG TABLET (FP) PO SCH (10:22)
[2019-07-24] MEDS: BUDESONIDE/FORMETEROL FUMARATE 80/4.5 mcg INHALER IH SCH ×2 (10:26→22:00)
[2019-07-24 12:37] LABS: MAGNESIUM 1.4 mg/dL (1.8-2.4)
[2019-07-24] MEDS ORDERED: POTASSIUM CHLORIDE ORAL LIQUID 20 MEQ/15 ML PO ONE (12:49)
--- NOTE | 2019-07-24 12:54 | PN ---
Progress Note, Physician Chief Complaint: pateint complainins of rash on board - Current Medication List Current Medications: Active Medications Acetaminophen (Tylenol -) 650 mg PO Q6H PRN PRN Reason: PAIN OR FEVER Last Admin: 07/24/19 07:01 Dose: 650 mg Albuterol/Ipratropium (Duoneb -) 1 amp NEB QIDR PRN PRN Reason: SHORTNESS OF BREATH Apixaban (Eliquis -) 5 mg PO BID [facility] Last Admin: 07/24/19 10:22 Dose: 5 mg Atorvastatin Calcium (Lipitor -) 40 mg PO HS [facility] Last Admin: 07/23/19 22:40 Dose: 40 mg Budesonide/Formoterol Fumarate (Symbicort 80/4.5mcg -) 2 puff IH BID [facility] Last Admin: 07/24/19 10:26 Dose: 2 puff Clotrimazole (Lotrisone Cream (Small Tube)) 1 applic TP BID [facility] Last Admin: 07/24/19 10:19 Dose: 1 applic Digoxin (Lanoxin -) 0.125 mg PO DAILY [facility] Last Admin: 07/24/19 10:20 Dose: 0.125 mg Furosemide (Lasix Injection -) 40 mg IVPUSH BID@0600,1400 [facility] Last Admin: 07/24/19 06:57 Dose: 40 mg Hydroxyzine HCl (Atarax -) 25 mg PO Q6H PRN PRN Reason: FOR ITCHING Last Admin: 07/23/19 01:12 Dose: 25 mg Cefazolin Sodium 1 gm/ (Dextrose) 50 mls @ 100 mls/hr IVPB Q8H-IV [facility] Last Admin: 07/24/19 10:17 Dose: 100 mls/hr Insulin Aspart (Novolog Vial Sliding Scale -) 1 vial SQ TIDAC [facility]; Protocol Last Admin: 07/24/19 11:56 Dose: Not Given Insulin Detemir (Levemir Vial) 30 units SQ [facility] Last Admin: 07/23/19 22:42 Dose: 30 units Isosorbide Mononitrate (Imdur -) 60 mg PO DAILY [facility] Last Admin: 07/24/19 10:20 Dose: 60 mg Losartan Potassium (Cozaar -) 25 mg PO DAILY [facility] Last Admin: 07/24/19 10:21 Dose: 25 mg Melatonin (Melatonin) 3 mg PO [facility] Last Admin: 07/23/19 22:41 Dose: 3 mg Metoprolol Succinate (Toprol Xl -) 25 mg PO DAILY [facility] Last Admin: 07/24/19 10:20 Dose: 25 mg Montelukast Sodium (Singulair -) 10 mg PO HS [facility] Last Admin: 07/23/19 22:41 Dose: 10 mg Nystatin (Nystatin Oral Suspension -) 500,000 units PO Q6HPO [facility] Last Admin: 07/24/19 12:12 Dose: Not Given Nystatin (Mycostatin Cream -) 1 applic TP BID [facility] Pantoprazole Sodium (Protonix -) 20 mg PO DAILY [facility] Last Admin: 07/24/19 10:22 Dose: 20 mg Polyethylene Glycol (Miralax (For Daily Use) -) 17 gm PO DAILY [facility] Last Admin: 07/24/19 10:22 Dose: Not Given Trazodone HCl (Desyrel -) 100 mg PO DAILY [facility] Last Admin: 07/24/19 10:22 Dose: 100 mg Zinc Acetate/Diphenhydramine (Benadryl 2% Cream) 1 applic TP BID [facility] - Objective Vital Signs: Vital Signs Temperature 98.9 F 07/24/19 06:00 Pulse Rate 102 H 07/24/19 10:20 Respiratory Rate 20 07/24/19 06:00 Blood Pressure 139/70 07/24/19 06:00 O2 Sat by Pulse Oximetry (%) 95 07/23/19 21:00 Constitutional: Yes: Calm Cardiovascular: Yes: Regular Rate and Rhythm, S1, S2 Respiratory: Yes: Diminished Gastrointestinal: Yes: Normal Bowel Sounds, Soft Extremities: Yes: Erythema Edema: Yes Edema: LLE: 1+, RLE: 1+ Integumentary: Yes: Rash (macular rash on underarm and groin area) Labs: CBC, BMP 07/24/19 06:03 07/24/19 06:03 INR, PTT INR 1.13 (0.83-1.09) H 07/22/19 17:47 Problem List - Problems (1) Acute on chronic diastolic CHF (congestive heart failure) Assessment/Plan: iv lasix bid replete lytes Code(s): I50.33 - ACUTE ON CHRONIC DIASTOLIC (CONGESTIVE) HEART FAILURE (2) Atrial fibrillation Assessment/Plan: digoxin elilquis metoprolol Code(s): I48.91 - UNSPECIFIED ATRIAL FIBRILLATION Qualifiers: Atrial fibrillation type: persistent Qualified Code(s): I48.1 - Persistent atrial fibrillation (3) Cellulitis Assessment/Plan: iv abx ID ob board Code(s): L03.90 - CELLULITIS, UNSPECIFIED (4) COPD (chronic obstructive pulmonary disease) Assessment/Plan: bronchodilators singulair Code(s): J44.9 - CHRONIC OBSTRUCTIVE PULMONARY DISEASE, UNSPECIFIED Qualifiers: COPD type: unspecified COPD Qualified Code(s): J44.9 - Chronic obstructive pulmonary disease, unspecified (5) Diabetes Assessment/Plan: bgm levemir Code(s): E11.9 - TYPE 2 DIABETES MELLITUS WITHOUT COMPLICATIONS Qualifiers: Diabetes mellitus type: type 2 (6) Rash Assessment/Plan: lotrin bendaryl cream Code(s): R21 - RASH AND OTHER NONSPECIFIC SKIN ERUPTION
[2019-07-24] MEDS: NYSTATIN 100,000 UNIT/GM TOPICAL CREAM 15 GM TUBE TP SCH ×2 (13:51→22:00)
[2019-07-24] MEDS: MAGNESIUM SULF 50% (8.12 MEQ/2 ML-1 GM VIAL) IVPB ONE ×2 (13:51→14:05)
--- NOTE | 2019-07-24 14:27 | PN ---
Progress Note, Physician Chief Complaint: No complaints tele af controlled VR History of Present Illness: 64 year old male with a PMHx of HTN, DM, HLD, mild non-obstructive CAD from cardiac cath on 07/25/2016 at [facility], systolic CHF secondary to non-ischemic cardiomyopathy with known low EF 30-35%, chronic afib (on Eliquis) and COPD admitted with SOB and orthopnea for one week. No chest pain. He has been taking his medications but is non compliant with diet and fluid restriction. Echocardiogram 06/29/19: EF 25-30%. Moderate MR. Mild TR - Current Medication List Current Medications: Active Medications Acetaminophen (Tylenol -) 650 mg PO Q6H PRN PRN Reason: PAIN OR FEVER Last Admin: 07/24/19 07:01 Dose: 650 mg Albuterol/Ipratropium (Duoneb -) 1 amp NEB QIDR PRN PRN Reason: SHORTNESS OF BREATH Apixaban (Eliquis -) 5 mg PO BID [facility] Last Admin: 07/24/19 10:22 Dose: 5 mg Atorvastatin Calcium (Lipitor -) 40 mg PO HS [facility] Last Admin: 07/23/19 22:40 Dose: 40 mg Budesonide/Formoterol Fumarate (Symbicort 80/4.5mcg -) 2 puff IH BID [facility] Last Admin: 07/24/19 10:26 Dose: 2 puff Clotrimazole (Lotrisone Cream (Small Tube)) 1 applic TP BID [facility] Last Admin: 07/24/19 10:19 Dose: 1 applic Digoxin (Lanoxin -) 0.125 mg PO DAILY [facility] Last Admin: 07/24/19 10:20 Dose: 0.125 mg Furosemide (Lasix Injection -) 40 mg IVPUSH BID@0600,1400 [facility] Last Admin: 07/24/19 13:51 Dose: 40 mg Hydroxyzine HCl (Atarax -) 25 mg PO Q6H PRN PRN Reason: FOR ITCHING Last Admin: 07/23/19 01:12 Dose: 25 mg Cefazolin Sodium 1 gm/ (Dextrose) 50 mls @ 100 mls/hr IVPB Q8H-IV [facility] Last Admin: 07/24/19 10:17 Dose: 100 mls/hr Insulin Aspart (Novolog Vial Sliding Scale -) 1 vial SQ TIDAC [facility]; Protocol Last Admin: 07/24/19 11:56 Dose: Not Given Insulin Detemir (Levemir Vial) 30 units SQ HS [facility] Last Admin: 07/23/19 22:42 Dose: 30 units Isosorbide Mononitrate (Imdur -) 60 mg PO DAILY [facility] Last Admin: 07/24/19 10:20 Dose: 60 mg Lidocaine/Aluminum/Magnesium/Simeth (Magic Mouthwash *Sjr Formula* -) 5 ml MM Q6HPO [facility] Losartan Potassium (Cozaar -) 25 mg PO DAILY [facility] Last Admin: 07/24/19 10:21 Dose: 25 mg Melatonin (Melatonin) 3 mg PO HS [facility] Last Admin: 07/23/19 22:41 Dose: 3 mg Metoprolol Succinate (Toprol Xl -) 25 mg PO DAILY [facility] Last Admin: 07/24/19 10:20 Dose: 25 mg Montelukast Sodium (Singulair -) 10 mg PO HS [facility] Last Admin: 07/23/19 22:41 Dose: 10 mg Nystatin (Nystatin Oral Suspension -) 500,000 units PO Q6HPO [facility] Last Admin: 07/24/19 12:12 Dose: Not Given Nystatin (Mycostatin Cream -) 1 applic TP BID [facility] Last Admin: 07/24/19 13:51 Dose: 1 applic Pantoprazole Sodium (Protonix -) 20 mg PO DAILY [facility] Last Admin: 07/24/19 10:22 Dose: 20 mg Polyethylene Glycol (Miralax (For Daily Use) -) 17 gm PO DAILY [facility] Last Admin: 07/24/19 10:22 Dose: Not Given Trazodone HCl (Desyrel -) 100 mg PO DAILY [facility] Last Admin: 07/24/19 10:22 Dose: 100 mg Zinc Acetate/Diphenhydramine (Benadryl 2% Cream) 1 applic TP BID [facility] - Objective Vital Signs: Vital Signs Temperature 98.4 F 07/24/19 10:00 Pulse Rate 102 H 07/24/19 10:20 Respiratory Rate 18 07/24/19 10:00 Blood Pressure 111/75 07/24/19 10:00 O2 Sat by Pulse Oximetry (%) 98 07/24/19 09:00 Constitutional: Yes: No Distress, Calm Eyes: Yes: Conjunctiva Clear, EOM Intact HENT: Yes: Atraumatic, Normocephalic Neck: Yes: Trachea Midline Cardiovascular: Yes: Regular Rate and Rhythm Respiratory: Yes: CTA Bilaterally Gastrointestinal: Yes: Normal Bowel Sounds, Soft Edema: Yes Edema: LLE: 1+, RLE: 1+ Labs: CBC, BMP 07/24/19 06:03 07/24/19 06:03 INR, PTT INR 1.13 (0.83-1.09) H 07/22/19 17:47 Assessment/Plan 64 year old male with a PMHx of HTN, DM, HLD, mild non-obstructive CAD from cardiac cath on 07/25/2016 at [facility], systolic CHF secondary to non-ischemic cardiomyopathy with known low EF 30-35%, chronic afib (on Eliquis) and COPD admitted with SOB and orthopnea for one week. No chest pain. He has been taking his medications but is non compliant with diet and fluid restriction. Echocardiogram 06/29/19: EF 25-30%. Moderate MR. Mild TR Plan: 1. Afib -rates are controlled. continue eliquis. continue dig and BB. 2. CHF -continue IV diuretics, Increase lasix to 40 BID. -continue metoprolol and ARB -daily weights -fluid restriction 2 liters -diet education if available. -change to PO 1-2 days.
[2019-07-24] MEDS ORDERED: MAGNESIUM OXIDE 400 MG TABLET (FP) PO ONE (14:36)
--- NOTE | 2019-07-24 14:36 | PN ---
Progress Note (short form) - Note Progress Note: refusing iv magnesim and potassium iv and liquid /tablet will give magoxide orally Problem List - Problems (1) Acute on chronic diastolic CHF (congestive heart failure) Code(s): I50.33 - ACUTE ON CHRONIC DIASTOLIC (CONGESTIVE) HEART FAILURE (2) Atrial fibrillation Code(s): I48.91 - UNSPECIFIED ATRIAL FIBRILLATION Qualifiers: Atrial fibrillation type: persistent Qualified Code(s): I48.1 - Persistent atrial fibrillation (3) Cellulitis Code(s): L03.90 - CELLULITIS, UNSPECIFIED (4) COPD (chronic obstructive pulmonary disease) Code(s): J44.9 - CHRONIC OBSTRUCTIVE PULMONARY DISEASE, UNSPECIFIED Qualifiers: COPD type: unspecified COPD Qualified Code(s): J44.9 - Chronic obstructive pulmonary disease, unspecified (5) Diabetes Code(s): E11.9 - TYPE 2 DIABETES MELLITUS WITHOUT COMPLICATIONS Qualifiers: Diabetes mellitus type: type 2 (6) Rash Code(s): R21 - RASH AND OTHER NONSPECIFIC SKIN ERUPTION
--- NOTE | 2019-07-24 15:14 | PN ---
Progress Note, Physician History of Present Illness: C/O GENERALIZED PRURITIS AFEBRILE WBC IMPROVED WNL - Current Medication List Current Medications: Active Medications Acetaminophen (Tylenol -) 650 mg PO Q6H PRN PRN Reason: PAIN OR FEVER Last Admin: 07/24/19 07:01 Dose: 650 mg Albuterol/Ipratropium (Duoneb -) 1 amp NEB QIDR PRN PRN Reason: SHORTNESS OF BREATH Apixaban (Eliquis -) 5 mg PO BID [facility] Last Admin: 07/24/19 10:22 Dose: 5 mg Atorvastatin Calcium (Lipitor -) 40 mg PO HS [facility] Last Admin: 07/23/19 22:40 Dose: 40 mg Budesonide/Formoterol Fumarate (Symbicort 80/4.5mcg -) 2 puff IH BID [facility] Last Admin: 07/24/19 10:26 Dose: 2 puff Clotrimazole (Lotrisone Cream (Small Tube)) 1 applic TP BID [facility] Last Admin: 07/24/19 10:19 Dose: 1 applic Digoxin (Lanoxin -) 0.125 mg PO DAILY [facility] Last Admin: 07/24/19 10:20 Dose: 0.125 mg Furosemide (Lasix Injection -) 40 mg IVPUSH BID@0600,1400 [facility] Last Admin: 07/24/19 13:51 Dose: 40 mg Hydroxyzine HCl (Atarax -) 25 mg PO Q6H PRN PRN Reason: FOR ITCHING Last Admin: 07/23/19 01:12 Dose: 25 mg Cefazolin Sodium 1 gm/ (Dextrose) 50 mls @ 100 mls/hr IVPB Q8H-IV [facility] Last Admin: 07/24/19 10:17 Dose: 100 mls/hr Insulin Aspart (Novolog Vial Sliding Scale -) 1 vial SQ TIDAC [facility]; Protocol Last Admin: 07/24/19 11:56 Dose: Not Given Insulin Detemir (Levemir Vial) 30 units SQ HS [facility] Last Admin: 07/23/19 22:42 Dose: 30 units Isosorbide Mononitrate (Imdur -) 60 mg PO DAILY [facility] Last Admin: 07/24/19 10:20 Dose: 60 mg Lidocaine/Aluminum/Magnesium/Simeth (Magic Mouthwash *Sjr Formula* -) 5 ml MM Q6HPO [facility] Losartan Potassium (Cozaar -) 25 mg PO DAILY [facility] Last Admin: 07/24/19 10:21 Dose: 25 mg Magnesium Oxide (Mag-Ox -) 400 mg PO BID [facility] Melatonin (Melatonin) 3 mg PO HS [facility] Last Admin: 07/23/19 22:41 Dose: 3 mg Metoprolol Succinate (Toprol Xl -) 25 mg PO DAILY [facility] Last Admin: 07/24/19 10:20 Dose: 25 mg Montelukast Sodium (Singulair -) 10 mg PO HS [facility] Last Admin: 07/23/19 22:41 Dose: 10 mg Nystatin (Nystatin Oral Suspension -) 500,000 units PO Q6HPO [facility] Last Admin: 07/24/19 12:12 Dose: Not Given Nystatin (Mycostatin Cream -) 1 applic TP BID [facility] Last Admin: 07/24/19 13:51 Dose: 1 applic Pantoprazole Sodium (Protonix -) 20 mg PO DAILY [facility] Last Admin: 07/24/19 10:22 Dose: 20 mg Polyethylene Glycol (Miralax (For Daily Use) -) 17 gm PO DAILY [facility] Last Admin: 07/24/19 10:22 Dose: Not Given Trazodone HCl (Desyrel -) 100 mg PO DAILY [facility] Last Admin: 07/24/19 10:22 Dose: 100 mg Zinc Acetate/Diphenhydramine (Benadryl 2% Cream) 1 applic TP BID [facility] - Objective Vital Signs: Vital Signs Temperature 98.4 F 07/24/19 10:00 Pulse Rate 102 H 07/24/19 10:20 Respiratory Rate 18 07/24/19 10:00 Blood Pressure 111/75 07/24/19 10:00 O2 Sat by Pulse Oximetry (%) 98 07/24/19 09:00 Constitutional: Yes: No Distress Eyes: Yes: Conjunctiva Clear Cardiovascular: Yes: Regular Rate and Rhythm, S1, S2 Respiratory: Yes: CTA Bilaterally Gastrointestinal: Yes: Normal Bowel Sounds, Soft, Abdomen, Obese. No: Tenderness Extremities: Yes: Other (+ CONFLUENT ERYTHEMA/ WARMTH LE BILATERALLY + URTICARIAL RASH BREASTS, UE) Edema: Yes Edema: LLE: 2+, RLE: 2+ Labs: CBC, BMP 07/24/19 06:03 07/24/19 06:03 INR, PTT INR 1.13 (0.83-1.09) H 07/22/19 17:47 Assessment/Plan + BILATERAL LE CELLULITIS ? CONTACT DERMATITIS LEUKOCYTOSIS IMPROVED CHF CONTINUE CEFAZOLIN, LOTRISONE
[2019-07-24] MEDS ORDERED: PT OWN MED DRAWER 7, Y5N ONE ×3 (17:58→21:28)
[2019-07-24] MEDS: MAG HYDROX/ALH/SMC/DPHA/LIDO 240 ML MOUTHWASH MM SCH (18:15)
[2019-07-24] MEDS ORDERED: INSULIN (LEVEMIR) 100 UNITS/ML UNITS SQ ONE (21:27)
[2019-07-24] MEDS: MONTELUKAST NA 10 MG TABLET PO SCH (21:59)
[2019-07-24] MEDS: ATORVASTATIN CA 40 MG TABLET (FP) PO SCH (21:59)
[2019-07-24] MEDS: MAGNESIUM OXIDE 400 MG TABLET (FP) PO SCH (21:59)
[2019-07-24] MEDS: MELATONIN 1 MG TABLET PO SCH (22:00)
[2019-07-24] MEDS: INSULIN (LEVEMIR) 100 UNITS/ML UNITS SQ SCH (22:01)
[2019-07-25] MEDS: MAG HYDROX/ALH/SMC/DPHA/LIDO 240 ML MOUTHWASH MM SCH ×4 (00:33→17:03)
[2019-07-25] MEDS: NYSTATIN 500,000 UNITS/5 ML SUSPENSION PO SCH ×4 (00:33→17:03)
[2019-07-25] MEDS ORDERED: DEXTROSE 5%-WATER - 50 ML IVPB ONE ×3 (01:49→16:49)
[2019-07-25] MEDS ORDERED: ceFAZolin SODIUM 1 GM VIAL ONE ×3 (01:49→16:49)
[2019-07-25] MEDS: CEFAZOLIN 1 GM in DEXTROSE 5%-WATER - 50 ML IVPB SCH ×3 (01:57→17:03)
[2019-07-25] MEDS: INSULIN SLIDING SCALE (NOVOLOG) 1 VIAL SQ SCH ×3 (06:06→16:55)
[2019-07-25 07:06] LABS: BASO % 0.6 % (0-2.0); EOS % 2.7 % (0-4.5); HEMATOCRIT 33.7 % (35.4-49); HEMOGLOBIN 11.2 GM/dL (11.7-16.9); LYMPH % 6.4 % (8-40); MCH 29.3 pg (25.7-33.7); MCHC 33.2 g/dl (32.0-35.9); MEAN CELL VOLUME 88.3 fl (80-96); MEAN PLT VOLUME 10.3 fl (7.5-11.1); MONO % 7.2 % (3.8-10.2); NEUT % 83.1 % (42.8-82.8); PLATELET COUNT 196 K/MM3 (134-434); RBC 3.82 M/mm3 (4.00-5.60); WHITE BLOOD COUNT 8.7 K/mm3 (4.0-10.0)
[2019-07-25 07:48] LABS: ALBUMIN 2.4 g/dl (3.4-5.0); BILIRUBIN,TOTAL 0.7 mg/dL (0.2-1); CALCIUM 8.3 mg/dL (8.5-10.1); CREATININE 0.8 mg/dL (0.55-1.3); MAGNESIUM 1.4 mg/dL (1.8-2.4); POTASSIUM 3.8 mmol/L (3.5-5.1); TOT PROT 6.6 g/dl (6.4-8.2)
[2019-07-25] MEDS ORDERED: traZODone HCL 50 MG TABLET (FP) ONE (09:06)
[2019-07-25] MEDS ORDERED: FUROSEMIDE 40 MG/4 ML INJECTABLE VIAL ONE (09:07)
[2019-07-25] MEDS ORDERED: PT OWN MED DRAWER 7, Y5N ONE ×3 (09:08→22:15)
[2019-07-25] MEDS: FUROSEMIDE 40 MG/4 ML INJECTABLE VIAL IVPUSH SCH ×2 (10:46→14:00)
[2019-07-25] MEDS: PANTOPRAZOLE 20 MG TABLET (FP) PO SCH (10:47)
[2019-07-25] MEDS: MAGNESIUM OXIDE 400 MG TABLET (FP) PO SCH ×2 (10:47→22:39)
[2019-07-25] MEDS: LOSARTAN POTASSIUM 25 MG TABLET PO SCH (10:47)
[2019-07-25] MEDS: ISOSORBIDE MONONITRATE 60 MG TAB.SR.24H (FP) PO SCH (10:47)
[2019-07-25] MEDS: DIGOXIN 0.125 MG TABLET (FP) PO SCH (10:47)
[2019-07-25] MEDS: APIXABAN 5 MG TABLET PO SCH ×2 (10:47→22:39)
[2019-07-25] MEDS: metoPROLOL SUCCINATE 25 MG TAB.SR.24H (FP) PO SCH (10:48)
[2019-07-25] MEDS: BUDESONIDE/FORMETEROL FUMARATE 80/4.5 mcg INHALER IH SCH ×2 (10:48→22:32)
[2019-07-25] MEDS: CLOTRIMAZOLE/BETAMET DIPROP 15 GM TUBE TP SCH ×2 (10:49→22:41)
[2019-07-25] MEDS: NYSTATIN 100,000 UNIT/GM TOPICAL CREAM 15 GM TUBE TP SCH ×2 (10:49→22:41)
[2019-07-25] MEDS: POLYETHYLENE GLYCOL 3350 119 GM BTL PO SCH (10:50)
[2019-07-25] MEDS: traZODone HCL 100 MG TABLET (FP) PO SCH (10:50)
--- NOTE | 2019-07-25 11:54 | PN ---
Progress Note, Physician Chief Complaint: not feeling well History of Present Illness: 64 year old male with a PMHx of HTN, DM, HLD, mild non-obstructive CAD from cardiac cath on 07/25/2016 at [facility], systolic CHF secondary to non-ischemic cardiomyopathy with known low EF 30-35%, chronic afib (on Eliquis) and COPD admitted with SOB and orthopnea for one week. No chest pain. He has been taking his medications but is non compliant with diet and fluid restriction. Echocardiogram 06/29/19: EF 25-30%. Moderate MR. Mild TR - Current Medication List Current Medications: Active Medications Acetaminophen (Tylenol -) 650 mg PO Q6H PRN PRN Reason: PAIN OR FEVER Last Admin: 07/24/19 07:01 Dose: 650 mg Albuterol/Ipratropium (Duoneb -) 1 amp NEB QIDR PRN PRN Reason: SHORTNESS OF BREATH Apixaban (Eliquis -) 5 mg PO BID [facility] Last Admin: 07/25/19 10:47 Dose: 5 mg Atorvastatin Calcium (Lipitor -) 40 mg PO HS [facility] Last Admin: 07/24/19 21:59 Dose: 40 mg Budesonide/Formoterol Fumarate (Symbicort 80/4.5mcg -) 2 puff IH BID [facility] Last Admin: 07/25/19 10:48 Dose: 2 puff Clotrimazole (Lotrisone Cream (Small Tube)) 1 applic TP BID [facility] Last Admin: 07/25/19 10:49 Dose: 1 applic Digoxin (Lanoxin -) 0.125 mg PO DAILY [facility] Last Admin: 07/25/19 10:47 Dose: 0.125 mg Furosemide (Lasix Injection -) 40 mg IVPUSH BID@0600,1400 [facility] Last Admin: 07/25/19 10:46 Dose: 40 mg Hydroxyzine HCl (Atarax -) 25 mg PO Q6H PRN PRN Reason: FOR ITCHING Last Admin: 07/23/19 01:12 Dose: 25 mg Cefazolin Sodium 1 gm/ (Dextrose) 50 mls @ 100 mls/hr IVPB Q8H-IV [facility] Last Admin: 07/25/19 10:47 Dose: 100 mls/hr Insulin Aspart (Novolog Vial Sliding Scale -) 1 vial SQ TIDAC [facility]; Protocol Last Admin: 07/25/19 06:06 Dose: Not Given Insulin Detemir (Levemir Vial) 30 units SQ HS [facility] Last Admin: 07/24/19 22:01 Dose: 30 units Isosorbide Mononitrate (Imdur -) 60 mg PO DAILY [facility] Last Admin: 07/25/19 10:47 Dose: 60 mg Lidocaine/Aluminum/Magnesium/Simeth (Magic Mouthwash *Sjr Formula* -) 5 ml MM Q6HPO [facility] Last Admin: 07/25/19 05:57 Dose: 5 ml Losartan Potassium (Cozaar -) 25 mg PO DAILY [facility] Last Admin: 07/25/19 10:47 Dose: 25 mg Magnesium Oxide (Mag-Ox -) 400 mg PO BID [facility] Last Admin: 07/25/19 10:47 Dose: 400 mg Melatonin (Melatonin) 3 mg PO [facility] Last Admin: 07/24/19 22:00 Dose: 3 mg Metoprolol Succinate (Toprol Xl -) 25 mg PO DAILY [facility] Last Admin: 07/25/19 10:48 Dose: 25 mg Montelukast Sodium (Singulair -) 10 mg PO HS [facility] Last Admin: 07/24/19 21:59 Dose: 10 mg Nystatin (Nystatin Oral Suspension -) 500,000 units PO Q6HPO [facility] Last Admin: 07/25/19 05:58 Dose: Not Given Nystatin (Mycostatin Cream -) 1 applic TP BID [facility] Last Admin: 07/25/19 10:49 Dose: 1 applic Pantoprazole Sodium (Protonix -) 20 mg PO DAILY [facility] Last Admin: 07/25/19 10:47 Dose: 20 mg Polyethylene Glycol (Miralax (For Daily Use) -) 17 gm PO DAILY [facility] Last Admin: 07/25/19 10:50 Dose: Not Given Trazodone HCl (Desyrel -) 100 mg PO DAILY [facility] Last Admin: 07/25/19 10:50 Dose: 100 mg Zinc Acetate/Diphenhydramine (Benadryl 2% Cream) 1 applic TP BID [facility] Last Admin: 07/25/19 10:48 Dose: 1 applic - Objective Vital Signs: Vital Signs Temperature 97.7 F 07/25/19 06:00 Pulse Rate 101 H 07/25/19 10:47 Respiratory Rate 20 07/25/19 06:00 Blood Pressure 112/80 07/25/19 06:00 O2 Sat by Pulse Oximetry (%) 99 07/24/19 21:00 Constitutional: Yes: Anxious, Obese Eyes: Yes: WNL, Conjunctiva Clear, EOM Intact HENT: Yes: WNL, Atraumatic, Normocephalic Neck: Yes: WNL, Supple, Trachea Midline Cardiovascular: Yes: Tachycardia, Pulse Irregular, S1, S2 Respiratory: Yes: Rales Gastrointestinal: Yes: WNL, Normal Bowel Sounds, Soft ...Rectal Exam: Yes: Deferred Genitourinary: Yes: WNL Musculoskeletal: Yes: Back Pain Edema: Yes Edema: LLE: Trace, RLE: Trace Peripheral Pulses: Left Radial: 1+, Right Radial: 1+, Left Doralis Pedis: 1+, Right Dorsalis Pedis: 1+, Left Femoral: 1+, Right Femoral: 1+ Neurological: Yes: WNL, Alert, Oriented ...Motor Strength: WNL Psychiatric: Yes: WNL Labs: CBC, BMP 07/25/19 06:00 07/25/19 05:40 INR, PTT INR 1.13 (0.83-1.09) H 07/22/19 17:47 Assessment/Plan 64 year old male with a PMHx of HTN, DM, HLD, mild non-obstructive CAD from cardiac cath on 07/25/2016 at [facility], systolic CHF secondary to non-ischemic cardiomyopathy with known low EF 30-35%, chronic afib (on Eliquis) and COPD admitted with SOB and orthopnea for one week. No chest pain. He has been taking his medications but is non compliant with diet and fluid restriction. Echocardiogram 06/29/19: EF 25-30%. Moderate MR. Mild TR please remove all fluids from the bedside. Strict salt and fluid restrictions. increase Toprol-XL from 25-50 mg daily. continue to up titrate the Toprol dose as needed for rate control. Assuming the blood pressure allows. Encourage the patient to ambulate. ventricular rates are better controlled in atrial fibrillation. no need for further cardiac workup at this point. Please do not hesitate to call us PRN.
--- NOTE | 2019-07-25 17:40 | PN ---
Progress Note, Physician - Current Medication List Current Medications: Active Medications Acetaminophen (Tylenol -) 650 mg PO Q6H PRN PRN Reason: PAIN OR FEVER Last Admin: 07/24/19 07:01 Dose: 650 mg Albuterol/Ipratropium (Duoneb -) 1 amp NEB QIDR PRN PRN Reason: SHORTNESS OF BREATH Apixaban (Eliquis -) 5 mg PO BID [facility] Last Admin: 07/25/19 10:47 Dose: 5 mg Atorvastatin Calcium (Lipitor -) 40 mg PO HS [facility] Last Admin: 07/24/19 21:59 Dose: 40 mg Budesonide/Formoterol Fumarate (Symbicort 80/4.5mcg -) 2 puff IH BID [facility] Last Admin: 07/25/19 10:48 Dose: 2 puff Clotrimazole (Lotrisone Cream (Small Tube)) 1 applic TP BID [facility] Last Admin: 07/25/19 10:49 Dose: 1 applic Digoxin (Lanoxin -) 0.125 mg PO DAILY [facility] Last Admin: 07/25/19 10:47 Dose: 0.125 mg Furosemide (Lasix Injection -) 40 mg IVPUSH BID@0600,1400 [facility] Last Admin: 07/25/19 14:00 Dose: 40 mg Hydroxyzine HCl (Atarax -) 25 mg PO Q6H PRN PRN Reason: FOR ITCHING Last Admin: 07/23/19 01:12 Dose: 25 mg Cefazolin Sodium 1 gm/ (Dextrose) 50 mls @ 100 mls/hr IVPB Q8H-IV [facility] Last Admin: 07/25/19 17:03 Dose: 100 mls/hr Insulin Aspart (Novolog Vial Sliding Scale -) 1 vial SQ TIDAC [facility]; Protocol Last Admin: 07/25/19 16:55 Dose: 4 units Insulin Detemir (Levemir Vial) 30 units SQ HS [facility] Last Admin: 07/24/19 22:01 Dose: 30 units Isosorbide Mononitrate (Imdur -) 60 mg PO DAILY [facility] Last Admin: 07/25/19 10:47 Dose: 60 mg Lidocaine/Aluminum/Magnesium/Simeth (Magic Mouthwash *Sjr Formula* -) 5 ml MM Q6HPO [facility] Last Admin: 07/25/19 17:03 Dose: 5 ml Losartan Potassium (Cozaar -) 25 mg PO DAILY [facility] Last Admin: 07/25/19 10:47 Dose: 25 mg Magnesium Oxide (Mag-Ox -) 400 mg PO BID [facility] Last Admin: 07/25/19 10:47 Dose: 400 mg Melatonin (Melatonin) 3 mg PO HS [facility] Last Admin: 07/24/19 22:00 Dose: 3 mg Metoprolol Succinate (Toprol Xl -) 25 mg PO DAILY [facility] Last Admin: 07/25/19 10:48 Dose: 25 mg Montelukast Sodium (Singulair -) 10 mg PO HS [facility] Last Admin: 07/24/19 21:59 Dose: 10 mg Nystatin (Nystatin Oral Suspension -) 500,000 units PO Q6HPO [facility] Last Admin: 07/25/19 17:03 Dose: 500,000 units Nystatin (Mycostatin Cream -) 1 applic TP BID [facility] Last Admin: 07/25/19 10:49 Dose: 1 applic Pantoprazole Sodium (Protonix -) 20 mg PO DAILY [facility] Last Admin: 07/25/19 10:47 Dose: 20 mg Polyethylene Glycol (Miralax (For Daily Use) -) 17 gm PO DAILY [facility] Last Admin: 07/25/19 10:50 Dose: Not Given Trazodone HCl (Desyrel -) 100 mg PO DAILY [facility] Last Admin: 07/25/19 10:50 Dose: 100 mg Zinc Acetate/Diphenhydramine (Benadryl 2% Cream) 1 applic TP BID [facility] Last Admin: 07/25/19 10:48 Dose: 1 applic - Objective Vital Signs: Vital Signs Temperature 98.1 F 07/25/19 14:00 Pulse Rate 89 07/25/19 14:00 Respiratory Rate 20 07/25/19 14:00 Blood Pressure 122/58 L 07/25/19 14:00 O2 Sat by Pulse Oximetry (%) 97 07/25/19 09:00 Constitutional: Yes: Well Nourished, No Distress, Calm Cardiovascular: Yes: Regular Rate and Rhythm Respiratory: Yes: Regular, On Nasal O2 Gastrointestinal: Yes: Normal Bowel Sounds, Soft Musculoskeletal: Yes: WNL Extremities: Yes: Erythema (BLLE) Edema: No Peripheral Pulses WNL: Yes Neurological: Yes: Alert, Oriented Psychiatric: Yes: Alert, Oriented Labs: CBC, BMP 07/25/19 06:00 07/25/19 05:40 INR, PTT INR 1.13 (0.83-1.09) H 07/22/19 17:47 Assessment/Plan (1) Acute on chronic diastolic CHF (congestive heart failure) Assessment/Plan: -IV lasix bid -Low sodium diet -Monitor daily weight Code(s): I50.33 - ACUTE ON CHRONIC DIASTOLIC (CONGESTIVE) HEART FAILURE (2) Atrial fibrillation Assessment/Plan: -Rate controlled -Tele monitoring -Seen by Cardiology -On Eliquis -Continue digoxin and metoprolol Code(s): I48.91 - UNSPECIFIED ATRIAL FIBRILLATION Qualifiers: Atrial fibrillation type: persistent Qualified Code(s): I48.1 - Persistent atrial fibrillation (3) Cellulitis Assessment/Plan: -BLLE -IV abx -ID ob board -afebrile -no leukocytosis Code(s): L03.90 - CELLULITIS, UNSPECIFIED (4) COPD (chronic obstructive pulmonary disease) Assessment/Plan: -bronchodilators -singulair -Nasal O2 PRN t keep SpO2>90% Code(s): J44.9 - CHRONIC OBSTRUCTIVE PULMONARY DISEASE, UNSPECIFIED Qualifiers: COPD type: unspecified COPD Qualified Code(s): J44.9 - Chronic obstructive pulmonary disease, unspecified (5) Diabetes Assessment/Plan: -BGM AC HS -Diabetc low sodium diet -levemir 30 U HS -ISS Code(s): E11.9 - TYPE 2 DIABETES MELLITUS WITHOUT COMPLICATIONS Qualifiers: Diabetes mellitus type: type 2 (6) Rash Assessment/Plan: -BLLE -Continue lotrin bendaryl cream Code(s): R21 - RASH AND OTHER NONSPECIFIC SKIN ERUPTION
[2019-07-25] MEDS: MONTELUKAST NA 10 MG TABLET PO SCH (22:39)
[2019-07-25] MEDS: ATORVASTATIN CA 40 MG TABLET (FP) PO SCH (22:39)
[2019-07-25] MEDS: INSULIN (LEVEMIR) 100 UNITS/ML UNITS SQ SCH (22:39)
[2019-07-26] MEDS: NYSTATIN 500,000 UNITS/5 ML SUSPENSION PO SCH ×4 (00:53→17:04)
[2019-07-26] MEDS: MAG HYDROX/ALH/SMC/DPHA/LIDO 240 ML MOUTHWASH MM SCH ×4 (00:53→17:04)
[2019-07-26] MEDS: MELATONIN 1 MG TABLET PO SCH ×2 (00:54→21:52)
[2019-07-26] MEDS ORDERED: DEXTROSE 5%-WATER - 50 ML IVPB ONE ×3 (03:02→16:50)
[2019-07-26] MEDS ORDERED: ceFAZolin SODIUM 1 GM VIAL ONE ×3 (03:02→16:50)
[2019-07-26] MEDS: CEFAZOLIN 1 GM in DEXTROSE 5%-WATER - 50 ML IVPB SCH ×3 (03:22→17:04)
[2019-07-26] MEDS: INSULIN SLIDING SCALE (NOVOLOG) 1 VIAL SQ SCH ×3 (06:35→17:05)
[2019-07-26] MEDS: FUROSEMIDE 40 MG/4 ML INJECTABLE VIAL IVPUSH SCH ×2 (06:37→13:30)
[2019-07-26] MEDS ORDERED: PT OWN MED DRAWER 7, Y5N ONE ×2 (06:52→16:57)
[2019-07-26] MEDS ORDERED: traZODone HCL 50 MG TABLET (FP) ONE (09:03)
[2019-07-26] MEDS: LOSARTAN POTASSIUM 25 MG TABLET PO SCH (09:13)
[2019-07-26] MEDS: DIGOXIN 0.125 MG TABLET (FP) PO SCH (09:13)
[2019-07-26] MEDS: MAGNESIUM OXIDE 400 MG TABLET (FP) PO SCH ×2 (09:13→21:53)
[2019-07-26] MEDS: ISOSORBIDE MONONITRATE 60 MG TAB.SR.24H (FP) PO SCH (09:13)
[2019-07-26] MEDS: metoPROLOL SUCCINATE 25 MG TAB.SR.24H (FP) PO SCH (09:14)
[2019-07-26] MEDS: APIXABAN 5 MG TABLET PO SCH ×2 (09:14→21:54)
[2019-07-26] MEDS: BUDESONIDE/FORMETEROL FUMARATE 80/4.5 mcg INHALER IH SCH ×2 (09:14→21:54)
[2019-07-26] MEDS: PANTOPRAZOLE 20 MG TABLET (FP) PO SCH (09:14)
[2019-07-26] MEDS: traZODone HCL 100 MG TABLET (FP) PO SCH (09:14)
[2019-07-26] MEDS: NYSTATIN 100,000 UNIT/GM TOPICAL CREAM 15 GM TUBE TP SCH ×2 (09:15→21:53)
[2019-07-26] MEDS: CLOTRIMAZOLE/BETAMET DIPROP 15 GM TUBE TP SCH ×2 (09:15→21:54)
[2019-07-26] MEDS: POLYETHYLENE GLYCOL 3350 119 GM BTL PO SCH (09:16)
--- NOTE | 2019-07-26 13:44 | PN ---
Progress Note, Physician Chief Complaint: CHF Afib - Current Medication List Current Medications: Active Medications Acetaminophen (Tylenol -) 650 mg PO Q6H PRN PRN Reason: PAIN OR FEVER Last Admin: 07/24/19 07:01 Dose: 650 mg Albuterol/Ipratropium (Duoneb -) 1 amp NEB QIDR PRN PRN Reason: SHORTNESS OF BREATH Apixaban (Eliquis -) 5 mg PO BID [facility] Last Admin: 07/26/19 09:14 Dose: 5 mg Atorvastatin Calcium (Lipitor -) 40 mg PO HS [facility] Last Admin: 07/25/19 22:39 Dose: 40 mg Budesonide/Formoterol Fumarate (Symbicort 80/4.5mcg -) 2 puff IH BID [facility] Last Admin: 07/26/19 09:14 Dose: 2 puff Clotrimazole (Lotrisone Cream (Small Tube)) 1 applic TP BID [facility] Last Admin: 07/26/19 09:15 Dose: 1 applic Digoxin (Lanoxin -) 0.125 mg PO DAILY [facility] Last Admin: 07/26/19 09:13 Dose: 0.125 mg Furosemide (Lasix Injection -) 40 mg IVPUSH BID@0600,1400 [facility] Last Admin: 07/26/19 13:30 Dose: 40 mg Hydroxyzine HCl (Atarax -) 25 mg PO Q6H PRN PRN Reason: FOR ITCHING Last Admin: 07/23/19 01:12 Dose: 25 mg Cefazolin Sodium 1 gm/ (Dextrose) 50 mls @ 100 mls/hr IVPB Q8H-IV [facility] Last Admin: 07/26/19 09:13 Dose: 100 mls/hr Insulin Aspart (Novolog Vial Sliding Scale -) 1 vial SQ TIDAC [facility]; Protocol Last Admin: 07/26/19 11:30 Dose: Not Given Insulin Detemir (Levemir Vial) 30 units SQ HS [facility] Last Admin: 07/25/19 22:39 Dose: 30 units Isosorbide Mononitrate (Imdur -) 60 mg PO DAILY [facility] Last Admin: 07/26/19 09:13 Dose: 60 mg Lidocaine/Aluminum/Magnesium/Simeth (Magic Mouthwash *Sjr Formula* -) 5 ml MM Q6HPO [facility] Last Admin: 09/15/19 11:44 Dose: 5 ml Losartan Potassium (Cozaar -) 25 mg PO DAILY [facility] Last Admin: 07/26/19 09:13 Dose: 25 mg Magnesium Oxide (Mag-Ox -) 400 mg PO BID [facility] Last Admin: 07/26/19 09:13 Dose: 400 mg Melatonin (Melatonin) 3 mg PO HS [facility] Last Admin: 07/26/19 00:54 Dose: 3 mg Metoprolol Succinate (Toprol Xl -) 25 mg PO DAILY [facility] Last Admin: 07/26/19 09:14 Dose: 25 mg Montelukast Sodium (Singulair -) 10 mg PO HS [facility] Last Admin: 07/25/19 22:39 Dose: 10 mg Nystatin (Nystatin Oral Suspension -) 500,000 units PO Q6HPO [facility] Last Admin: 07/26/19 11:44 Dose: 500,000 units Nystatin (Mycostatin Cream -) 1 applic TP BID [facility] Last Admin: 07/26/19 09:15 Dose: 1 applic Pantoprazole Sodium (Protonix -) 20 mg PO DAILY [facility] Last Admin: 07/26/19 09:14 Dose: 20 mg Polyethylene Glycol (Miralax (For Daily Use) -) 17 gm PO DAILY [facility] Last Admin: 07/26/19 09:16 Dose: Not Given Trazodone HCl (Desyrel -) 100 mg PO DAILY [facility] Last Admin: 07/26/19 09:14 Dose: 100 mg Zinc Acetate/Diphenhydramine (Benadryl 2% Cream) 1 applic TP BID [facility] Last Admin: 07/26/19 09:16 Dose: 1 applic - Objective Vital Signs: Vital Signs Temperature 98.0 F 07/26/19 10:00 Pulse Rate 86 07/26/19 10:00 Respiratory Rate 20 07/26/19 10:00 Blood Pressure 126/98 07/26/19 10:00 O2 Sat by Pulse Oximetry (%) 95 07/26/19 09:00 Labs: CBC, BMP 07/25/19 06:00 07/25/19 05:40 INR, PTT INR 1.13 (0.83-1.09) H 07/22/19 17:47 Assessment/Plan (1) Acute on chronic diastolic CHF (congestive heart failure) Assessment/Plan: -IV lasix bid -Low sodium diet -Monitor daily weight Code(s): I50.33 - ACUTE ON CHRONIC DIASTOLIC (CONGESTIVE) HEART FAILURE (2) Atrial fibrillation Assessment/Plan: -Rate controlled -Tele monitoring -Seen by Cardiology -On Eliquis -Continue digoxin and metoprolol Code(s): I48.91 - UNSPECIFIED ATRIAL FIBRILLATION Qualifiers: Atrial fibrillation type: persistent Qualified Code(s): I48.1 - Persistent atrial fibrillation (3) Cellulitis Assessment/Plan: -BLLE -IV abx -ID ob board -afebrile -no leukocytosis Code(s): L03.90 - CELLULITIS, UNSPECIFIED (4) COPD (chronic obstructive pulmonary disease) Assessment/Plan: -bronchodilators -singulair -Nasal O2 PRN t keep SpO2>90% Code(s): J44.9 - CHRONIC OBSTRUCTIVE PULMONARY DISEASE, UNSPECIFIED Qualifiers: COPD type: unspecified COPD Qualified Code(s): J44.9 - Chronic obstructive pulmonary disease, unspecified (5) Diabetes Assessment/Plan: -BGM AC HS -Diabetc low sodium diet -levemir 30 U HS -ISS Code(s): E11.9 - TYPE 2 DIABETES MELLITUS WITHOUT COMPLICATIONS Qualifiers: Diabetes mellitus type: type 2 (6) Rash Assessment/Plan: -BLLE -Continue lotrin bendaryl cream Code(s): R21 - RASH AND OTHER NONSPECIFIC SKIN ERUPTION
[2019-07-26] MEDS ORDERED: ARTIFICIAL TEARS (POLYVINYL ALCOHOL) OPTH DROPS OU ONE (21:35)
[2019-07-26] MEDS: MONTELUKAST NA 10 MG TABLET PO SCH (21:52)
[2019-07-26] MEDS: ATORVASTATIN CA 40 MG TABLET (FP) PO SCH (21:52)
[2019-07-26] MEDS: INSULIN (LEVEMIR) 100 UNITS/ML UNITS SQ SCH (21:54)
[2019-07-27] MEDS: MAG HYDROX/ALH/SMC/DPHA/LIDO 240 ML MOUTHWASH MM SCH ×4 (00:22→17:11)
[2019-07-27] MEDS: NYSTATIN 500,000 UNITS/5 ML SUSPENSION PO SCH ×4 (00:22→17:11)
[2019-07-27] MEDS ORDERED: ceFAZolin SODIUM 1 GM VIAL ONE ×3 (01:28→17:09)
[2019-07-27] MEDS ORDERED: DEXTROSE 5%-WATER - 50 ML IVPB ONE ×3 (01:29→17:09)
[2019-07-27] MEDS: CEFAZOLIN 1 GM in DEXTROSE 5%-WATER - 50 ML IVPB SCH ×3 (01:43→17:11)
[2019-07-27] MEDS: FUROSEMIDE 40 MG/4 ML INJECTABLE VIAL IVPUSH SCH ×2 (05:53→13:41)
[2019-07-27] MEDS: INSULIN SLIDING SCALE (NOVOLOG) 1 VIAL SQ SCH ×3 (05:59→17:11)
[2019-07-27] MEDS: DIGOXIN 0.125 MG TABLET (FP) PO SCH (09:10)
[2019-07-27] MEDS: ISOSORBIDE MONONITRATE 60 MG TAB.SR.24H (FP) PO SCH (09:11)
[2019-07-27] MEDS: metoPROLOL SUCCINATE 25 MG TAB.SR.24H (FP) PO SCH (09:11)
[2019-07-27] MEDS: LOSARTAN POTASSIUM 25 MG TABLET PO SCH (09:11)
[2019-07-27] MEDS: APIXABAN 5 MG TABLET PO SCH ×2 (09:11→22:57)
[2019-07-27] MEDS: PANTOPRAZOLE 20 MG TABLET (FP) PO SCH (09:11)
[2019-07-27] MEDS: MAGNESIUM OXIDE 400 MG TABLET (FP) PO SCH ×2 (09:12→22:57)
[2019-07-27] MEDS: traZODone HCL 100 MG TABLET (FP) PO SCH (09:13)
[2019-07-27] MEDS: POLYETHYLENE GLYCOL 3350 119 GM BTL PO SCH (09:13)
[2019-07-27] MEDS: NYSTATIN 100,000 UNIT/GM TOPICAL CREAM 15 GM TUBE TP SCH ×2 (09:14→22:58)
[2019-07-27] MEDS: BUDESONIDE/FORMETEROL FUMARATE 80/4.5 mcg INHALER IH SCH ×2 (09:14→22:58)
[2019-07-27] MEDS: CLOTRIMAZOLE/BETAMET DIPROP 15 GM TUBE TP SCH ×2 (09:15→22:59)
[2019-07-27] MEDS ORDERED: metoPROLOL SUCCINATE 25 MG TAB.SR.24H (FP) PO SCH (10:25)
--- NOTE | 2019-07-27 12:47 | PN ---
Progress Note, Physician Chief Complaint: patient seen and examined rash is much improved erythema of legs better - Current Medication List Current Medications: Active Medications Acetaminophen (Tylenol -) 650 mg PO Q6H PRN PRN Reason: PAIN OR FEVER Last Admin: 07/24/19 07:01 Dose: 650 mg Albuterol/Ipratropium (Duoneb -) 1 amp NEB QIDR PRN PRN Reason: SHORTNESS OF BREATH Apixaban (Eliquis -) 5 mg PO BID [facility] Last Admin: 07/27/19 09:11 Dose: 5 mg Atorvastatin Calcium (Lipitor -) 40 mg PO HS [facility] Last Admin: 07/26/19 21:52 Dose: 40 mg Budesonide/Formoterol Fumarate (Symbicort 80/4.5mcg -) 2 puff IH BID [facility] Last Admin: 07/27/19 09:14 Dose: 2 puff Clotrimazole (Lotrisone Cream (Small Tube)) 1 applic TP BID [facility] Last Admin: 07/27/19 09:15 Dose: 1 applic Digoxin (Lanoxin -) 0.125 mg PO DAILY [facility] Last Admin: 07/27/19 09:10 Dose: 0.125 mg Furosemide (Lasix Injection -) 40 mg IVPUSH BID@0600,1400 [facility] Last Admin: 07/27/19 05:53 Dose: 40 mg Hydroxyzine HCl (Atarax -) 25 mg PO Q6H PRN PRN Reason: FOR ITCHING Last Admin: 07/23/19 01:12 Dose: 25 mg Cefazolin Sodium 1 gm/ (Dextrose) 50 mls @ 100 mls/hr IVPB Q8H-IV [facility] Last Admin: 07/27/19 09:11 Dose: 100 mls/hr Insulin Aspart (Novolog Vial Sliding Scale -) 1 vial SQ TIDAC [facility]; Protocol Last Admin: 07/27/19 10:49 Dose: Not Given Insulin Detemir (Levemir Vial) 30 units SQ [facility] Last Admin: 07/26/19 21:54 Dose: 30 units Isosorbide Mononitrate (Imdur -) 60 mg PO DAILY [facility] Last Admin: 07/27/19 09:11 Dose: 60 mg Lidocaine/Aluminum/Magnesium/Simeth (Magic Mouthwash *Sjr Formula* -) 5 ml MM Q6HPO [facility] Last Admin: 07/27/19 11:07 Dose: 5 ml Losartan Potassium (Cozaar -) 25 mg PO DAILY [facility] Last Admin: 07/27/19 09:11 Dose: 25 mg Magnesium Oxide (Mag-Ox -) 400 mg PO BID [facility] Last Admin: 07/27/19 09:12 Dose: 400 mg Melatonin (Melatonin) 3 mg PO HS [facility] Last Admin: 07/26/19 21:52 Dose: 3 mg Metoprolol Succinate (Toprol Xl -) 50 mg PO DAILY [facility] Montelukast Sodium (Singulair -) 10 mg PO HS [facility] Last Admin: 07/26/19 21:52 Dose: 10 mg Nystatin (Nystatin Oral Suspension -) 500,000 units PO Q6HPO [facility] Last Admin: 07/27/19 11:07 Dose: 500,000 units Nystatin (Mycostatin Cream -) 1 applic TP BID [facility] Last Admin: 07/27/19 09:14 Dose: 1 applic Pantoprazole Sodium (Protonix -) 20 mg PO DAILY [facility] Last Admin: 07/27/19 09:11 Dose: 20 mg Polyethylene Glycol (Miralax (For Daily Use) -) 17 gm PO DAILY [facility] Last Admin: 07/27/19 09:13 Dose: Not Given Trazodone HCl (Desyrel -) 100 mg PO DAILY [facility] Last Admin: 07/27/19 09:13 Dose: 100 mg Zinc Acetate/Diphenhydramine (Benadryl 2% Cream) 1 applic TP BID [facility] Last Admin: 07/27/19 09:15 Dose: 1 applic - Objective Vital Signs: Vital Signs Temperature 98.1 F 07/27/19 10:20 Pulse Rate 91 H 07/27/19 10:20 Respiratory Rate 22 H 07/27/19 10:20 Blood Pressure 134/97 07/27/19 10:20 O2 Sat by Pulse Oximetry (%) 99 07/27/19 09:00 Constitutional: Yes: Calm Cardiovascular: Yes: Regular Rate and Rhythm, S1, S2 Respiratory: Yes: CTA Bilaterally, Diminished (at bases) Gastrointestinal: Yes: Normal Bowel Sounds, Soft Extremities: Yes: Erythema (improved), Other Edema: Yes Integumentary: Yes: Rash (improved) Neurological: Yes: Alert, Oriented Labs: CBC, BMP 07/25/19 06:00 07/25/19 05:40 INR, PTT INR 1.13 (0.83-1.09) H 07/22/19 17:47 Problem List - Problems (1) Acute on chronic diastolic CHF (congestive heart failure) Assessment/Plan: iv lasix bid replete lytes Code(s): I50.33 - ACUTE ON CHRONIC DIASTOLIC (CONGESTIVE) HEART FAILURE (2) Atrial fibrillation Assessment/Plan: digoxin elilquis metoprolol toprol dose increased Code(s): I48.91 - UNSPECIFIED ATRIAL FIBRILLATION Qualifiers: Atrial fibrillation type: persistent Qualified Code(s): I48.1 - Persistent atrial fibrillation (3) Cellulitis Assessment/Plan: iv abx- cefazolin cellutis improving ID ob board Code(s): L03.90 - CELLULITIS, UNSPECIFIED (4) COPD (chronic obstructive pulmonary disease) Assessment/Plan: bronchodilators singulair Code(s): J44.9 - CHRONIC OBSTRUCTIVE PULMONARY DISEASE, UNSPECIFIED Qualifiers: COPD type: unspecified COPD Qualified Code(s): J44.9 - Chronic obstructive pulmonary disease, unspecified (5) Diabetes Assessment/Plan: bgm levemir Code(s): E11.9 - TYPE 2 DIABETES MELLITUS WITHOUT COMPLICATIONS Qualifiers: Diabetes mellitus type: type 2 (6) Rash Assessment/Plan: lotrin nystatin bendaryl cream rash improved Code(s): R21 - RASH AND OTHER NONSPECIFIC SKIN ERUPTION
--- NOTE | 2019-07-27 15:38 | PN ---
Progress Note (short form) - Note Progress Note: still feels itchy less sob Vital Signs Period Temp Pulse Resp BP Sys/Uribe Pulse Ox Last 24 Hr 97.3 F-98.3 F 82-109 18-22 102-138/68-116 99 cor-rrr lungs decreased bs at bases abd soft,nt ext less erythema, +edema rash almost resolved CBC, BMP 07/25/19 06:00 07/25/19 05:40 Microbiology 07/23/19 20:45 Blood - Peripheral Venous Blood Culture - Preliminary NO GROWTH OBTAINED AFTER 72 HOURS, INCUBATION TO CONTINUE FOR 2 DAYS. 07/23/19 20:30 Blood - Peripheral Venous Blood Culture - Preliminary NO GROWTH OBTAINED AFTER 72 HOURS, INCUBATION TO CONTINUE FOR 2 DAYS. Current Medications Acetaminophen (Tylenol -) 650 mg PO Q6H PRN PRN Reason: PAIN OR FEVER Last Admin: 07/24/19 07:01 Dose: 650 mg Albuterol/Ipratropium (Duoneb -) 1 amp NEB QIDR PRN PRN Reason: SHORTNESS OF BREATH Apixaban (Eliquis -) 5 mg PO BID [facility] Last Admin: 07/27/19 09:11 Dose: 5 mg Atorvastatin Calcium (Lipitor -) 40 mg PO HS [facility] Last Admin: 07/26/19 21:52 Dose: 40 mg Budesonide/Formoterol Fumarate (Symbicort 80/4.5mcg -) 2 puff IH BID [facility] Last Admin: 07/27/19 09:14 Dose: 2 puff Clotrimazole (Lotrisone Cream (Small Tube)) 1 applic TP BID [facility] Last Admin: 07/27/19 09:15 Dose: 1 applic Digoxin (Lanoxin -) 0.125 mg PO DAILY [facility] Last Admin: 07/27/19 09:10 Dose: 0.125 mg Furosemide (Lasix Injection -) 40 mg IVPUSH BID@0600,1400 [facility] Last Admin: 07/27/19 13:41 Dose: 40 mg Hydroxyzine HCl (Atarax -) 25 mg PO Q6H PRN PRN Reason: FOR ITCHING Last Admin: 07/23/19 01:12 Dose: 25 mg Cefazolin Sodium 1 gm/ (Dextrose) 50 mls @ 100 mls/hr IVPB Q8H-IV [facility] Last Admin: 09/16/19 09:11 Dose: 100 mls/hr Insulin Aspart (Novolog Vial Sliding Scale -) 1 vial SQ TIDAC [facility]; Protocol Last Admin: 07/27/19 10:49 Dose: Not Given Insulin Detemir (Levemir Vial) 30 units SQ [facility] Last Admin: 07/26/19 21:54 Dose: 30 units Isosorbide Mononitrate (Imdur -) 60 mg PO DAILY [facility] Last Admin: 07/27/19 09:11 Dose: 60 mg Lidocaine/Aluminum/Magnesium/Simeth (Magic Mouthwash *Sjr Formula* -) 5 ml MM Q6HPO [facility] Last Admin: 07/27/19 11:07 Dose: 5 ml Losartan Potassium (Cozaar -) 25 mg PO DAILY [facility] Last Admin: 07/27/19 09:11 Dose: 25 mg Magnesium Oxide (Mag-Ox -) 400 mg PO BID [facility] Last Admin: 07/27/19 09:12 Dose: 400 mg Melatonin (Melatonin) 3 mg PO [facility] Last Admin: 07/26/19 21:52 Dose: 3 mg Metoprolol Succinate (Toprol Xl -) 50 mg PO DAILY [facility] Montelukast Sodium (Singulair -) 10 mg PO [facility] Last Admin: 07/26/19 21:52 Dose: 10 mg Nystatin (Nystatin Oral Suspension -) 500,000 units PO Q6HPO [facility] Last Admin: 07/27/19 11:07 Dose: 500,000 units Nystatin (Mycostatin Cream -) 1 applic TP BID [facility] Last Admin: 07/27/19 09:14 Dose: 1 applic Pantoprazole Sodium (Protonix -) 20 mg PO DAILY [facility] Last Admin: 07/27/19 09:11 Dose: 20 mg Polyethylene Glycol (Miralax (For Daily Use) -) 17 gm PO DAILY [facility] Last Admin: 07/27/19 09:13 Dose: Not Given Trazodone HCl (Desyrel -) 100 mg PO DAILY [facility] Last Admin: 07/27/19 09:13 Dose: 100 mg Zinc Acetate/Diphenhydramine (Benadryl 2% Cream) 1 applic TP BID [facility] Last Admin: 07/27/19 09:15 Dose: 1 applic a/p CHF-diuresisper cardiology cellulitis-resolving , can change to po keflex in am rash resolving with creams please call back if needed
[2019-07-27] MEDS: ATORVASTATIN CA 40 MG TABLET (FP) PO SCH (22:57)
[2019-07-27] MEDS: MONTELUKAST NA 10 MG TABLET PO SCH (22:57)
[2019-07-27] MEDS: INSULIN (LEVEMIR) 100 UNITS/ML UNITS SQ SCH (22:58)
[2019-07-27] MEDS: MELATONIN 1 MG TABLET PO SCH (22:58)
[2019-07-28] MEDS: MAG HYDROX/ALH/SMC/DPHA/LIDO 240 ML MOUTHWASH MM SCH ×4 (00:28→17:02)
[2019-07-28] MEDS: ACETAMINOPHEN 325 MG TABLET (FP) PO PRN ×2 (00:28→14:01)
[2019-07-28] MEDS: NYSTATIN 500,000 UNITS/5 ML SUSPENSION PO SCH ×4 (00:28→17:02)
[2019-07-28] MEDS ORDERED: DEXTROSE 5%-WATER - 50 ML IVPB ONE ×3 (02:12→16:52)
[2019-07-28] MEDS ORDERED: ceFAZolin SODIUM 1 GM VIAL ONE ×3 (02:12→16:52)
[2019-07-28] MEDS: CEFAZOLIN 1 GM in DEXTROSE 5%-WATER - 50 ML IVPB SCH ×3 (02:29→17:02)
[2019-07-28 06:41] LABS: BASO % 0.5 % (0-2.0); EOS % 1.8 % (0-4.5); HEMATOCRIT 35.3 % (35.4-49); HEMOGLOBIN 11.6 GM/dL (11.7-16.9); LYMPH % 10.9 % (8-40); MCH 29.1 pg (25.7-33.7); MCHC 32.7 g/dl (32.0-35.9); MEAN PLT VOLUME 9.6 fl (7.5-11.1); MONO % 11.5 % (3.8-10.2); NEUT % 75.3 % (42.8-82.8); PLATELET COUNT 166 K/MM3 (134-434); RBC 3.97 M/mm3 (4.00-5.60); RDW 19.4 % (11.9-15.9); WHITE BLOOD COUNT 9.3 K/mm3 (4.0-10.0)
[2019-07-28] MEDS: INSULIN SLIDING SCALE (NOVOLOG) 1 VIAL SQ SCH ×3 (06:48→17:09)
[2019-07-28] MEDS: FUROSEMIDE 40 MG/4 ML INJECTABLE VIAL IVPUSH SCH (06:49)
[2019-07-28 07:06] LABS: ALBUMIN 2.7 g/dl (3.4-5.0); BILIRUBIN,TOTAL 0.7 mg/dL (0.2-1); BLOOD UREA NITROGEN 29.4 mg/dL (7-18); CALCIUM 8.2 mg/dL (8.5-10.1); POTASSIUM 3.7 mmol/L (3.5-5.1); TOT PROT 6.8 g/dl (6.4-8.2)
[2019-07-28] MEDS ORDERED: traZODone HCL 50 MG TABLET (FP) ONE (09:24)
--- NOTE | 2019-07-28 10:05 | PN ---
Progress Note, Physician - Current Medication List Current Medications: Active Medications Acetaminophen (Tylenol -) 650 mg PO Q6H PRN PRN Reason: PAIN OR FEVER Last Admin: 07/28/19 00:28 Dose: 650 mg Apixaban (Eliquis -) 5 mg PO BID [facility] Last Admin: 07/27/19 22:57 Dose: 5 mg Atorvastatin Calcium (Lipitor -) 40 mg PO HS [facility] Last Admin: 07/27/19 22:57 Dose: 40 mg Budesonide/Formoterol Fumarate (Symbicort 80/4.5mcg -) 2 puff IH BID [facility] Last Admin: 07/27/19 22:58 Dose: 2 puff Clotrimazole (Lotrisone Cream (Small Tube)) 1 applic TP BID [facility] Last Admin: 07/27/19 22:59 Dose: 1 applic Digoxin (Lanoxin -) 0.125 mg PO DAILY [facility] Last Admin: 07/27/19 09:10 Dose: 0.125 mg Furosemide (Lasix Injection -) 40 mg IVPUSH BID@0600,1400 [facility] Last Admin: 07/28/19 06:49 Dose: 40 mg Hydroxyzine HCl (Atarax -) 25 mg PO Q6H PRN PRN Reason: FOR ITCHING Last Admin: 07/23/19 01:12 Dose: 25 mg Cefazolin Sodium 1 gm/ (Dextrose) 50 mls @ 100 mls/hr IVPB Q8H-IV [facility] Last Admin: 07/28/19 02:29 Dose: 100 mls/hr Insulin Aspart (Novolog Vial Sliding Scale -) 1 vial SQ TIDAC [facility]; Protocol Last Admin: 07/28/19 06:48 Dose: Not Given Insulin Detemir (Levemir Vial) 30 units SQ [facility] Last Admin: 07/27/19 22:58 Dose: 30 units Isosorbide Mononitrate (Imdur -) 60 mg PO DAILY [facility] Last Admin: 07/27/19 09:11 Dose: 60 mg Lidocaine/Aluminum/Magnesium/Simeth (Magic Mouthwash *Sjr Formula* -) 5 ml MM Q6HPO [facility] Last Admin: 07/28/19 06:48 Dose: 5 ml Losartan Potassium (Cozaar -) 25 mg PO DAILY [facility] Last Admin: 07/27/19 09:11 Dose: 25 mg Magnesium Oxide (Mag-Ox -) 400 mg PO BID [facility] Last Admin: 07/27/19 22:57 Dose: 400 mg Melatonin (Melatonin) 3 mg PO HS [facility] Last Admin: 07/27/19 22:58 Dose: 3 mg Metoprolol Succinate (Toprol Xl -) 50 mg PO DAILY [facility] Montelukast Sodium (Singulair -) 10 mg PO HS [facility] Last Admin: 07/27/19 22:57 Dose: 10 mg Nystatin (Nystatin Oral Suspension -) 500,000 units PO Q6HPO [facility] Last Admin: 07/28/19 06:49 Dose: 500,000 units Nystatin (Mycostatin Cream -) 1 applic TP BID [facility] Last Admin: 07/27/19 22:58 Dose: 1 applic Pantoprazole Sodium (Protonix -) 20 mg PO DAILY [facility] Last Admin: 07/27/19 09:11 Dose: 20 mg Polyethylene Glycol (Miralax (For Daily Use) -) 17 gm PO DAILY [facility] Last Admin: 07/27/19 09:13 Dose: Not Given Torsemide (Demadex -) 40 mg PO BID [facility] Trazodone HCl (Desyrel -) 100 mg PO DAILY [facility] Last Admin: 07/27/19 09:13 Dose: 100 mg Zinc Acetate/Diphenhydramine (Benadryl 2% Cream) 1 applic TP BID [facility] Last Admin: 07/27/19 22:59 Dose: 1 applic - Objective Vital Signs: Vital Signs Temperature 97.9 F 07/28/19 06:00 Pulse Rate 86 07/28/19 06:00 Respiratory Rate 18 07/28/19 06:00 Blood Pressure 147/59 L 07/28/19 06:00 O2 Sat by Pulse Oximetry (%) 97 07/27/19 21:00 Labs: CBC, BMP 07/28/19 05:15 07/28/19 05:15 INR, PTT INR 1.13 (0.83-1.09) H 07/22/19 17:47 Assessment/Plan - Problems (1) Acute on chronic diastolic CHF (congestive heart failure) Assessment/Plan: iv lasix bid--po demadex replete lytes Code(s): I50.33 - ACUTE ON CHRONIC DIASTOLIC (CONGESTIVE) HEART FAILURE (2) Atrial fibrillation Assessment/Plan: digoxin elilquis metoprolol toprol dose increased Code(s): I48.91 - UNSPECIFIED ATRIAL FIBRILLATION Qualifiers: Atrial fibrillation type: persistent Qualified Code(s): I48.1 - Persistent atrial fibrillation (3) Cellulitis Assessment/Plan: iv abx- cefazolin cellutis improving ID ob board vascular consult Code(s): L03.90 - CELLULITIS, UNSPECIFIED (4) COPD (chronic obstructive pulmonary disease) Assessment/Plan: bronchodilators singulair Code(s): J44.9 - CHRONIC OBSTRUCTIVE PULMONARY DISEASE, UNSPECIFIED Qualifiers: COPD type: unspecified COPD Qualified Code(s): J44.9 - Chronic obstructive pulmonary disease, unspecified (5) Diabetes Assessment/Plan: bgm levemir Code(s): E11.9 - TYPE 2 DIABETES MELLITUS WITHOUT COMPLICATIONS Qualifiers: Diabetes mellitus type: type 2 (6) Rash Assessment/Plan: lotrin nystatin bendaryl cream rash improved Code(s): R21 - RASH AND OTHER NONSPECIFIC SKIN ERUPTION
[2019-07-28] MEDS: TORSEMIDE 20 MG TABLET (FP) PO SCH ×2 (10:20→21:27)
[2019-07-28] MEDS: ISOSORBIDE MONONITRATE 60 MG TAB.SR.24H (FP) PO SCH (10:20)
[2019-07-28] MEDS: PANTOPRAZOLE 20 MG TABLET (FP) PO SCH (10:20)
[2019-07-28] MEDS: traZODone HCL 100 MG TABLET (FP) PO SCH (10:21)
[2019-07-28] MEDS: DIGOXIN 0.125 MG TABLET (FP) PO SCH (10:21)
[2019-07-28] MEDS: LOSARTAN POTASSIUM 25 MG TABLET PO SCH (10:21)
[2019-07-28] MEDS: MAGNESIUM OXIDE 400 MG TABLET (FP) PO SCH ×2 (10:21→21:28)
[2019-07-28] MEDS: APIXABAN 5 MG TABLET PO SCH ×2 (10:21→21:27)
[2019-07-28] MEDS: POLYETHYLENE GLYCOL 3350 119 GM BTL PO SCH (10:22)
[2019-07-28] MEDS: BUDESONIDE/FORMETEROL FUMARATE 80/4.5 mcg INHALER IH SCH ×2 (10:22→21:32)
[2019-07-28] MEDS: NYSTATIN 100,000 UNIT/GM TOPICAL CREAM 15 GM TUBE TP SCH ×2 (10:23→21:33)
[2019-07-28] MEDS: CLOTRIMAZOLE/BETAMET DIPROP 15 GM TUBE TP SCH ×2 (10:23→21:33)
--- NOTE | 2019-07-28 13:36 | CONSULT ---
- Consultation REQUESTING PROVIDER: CONSULT REQUEST: We have been asked to surgically evaluate this patient for PCP:Jessica Wooten HISTORY OF PRESENT ILLNESS: 64 y/o M w/ PMhX of HTN, HLD, DM, CHF, COPD, afib on eliquis a/w lower extremity edema and SOB. Vascular consulted for evaluation of PAD. Pt reports he was a prior 2-2.5ppd smoker, quit 3 years ago. States he has had peripheral stents placed at [facility] last year. Denies any h/o claudication, reports his ambulation is limited by his sob. Has not been back to follow up with Vascular after stent placement. Denies current claudication, nonhealing wounds, rest pain. PMHx: as above PSHx: pt unsure Home Medications Medication Instructions Recorded Montelukast Na [Singulair -] 10 mg PO HS tablet 05/29/18 Albuterol 2.5/Ipratropium 0.5 1 amp NEB Q6H PRN amp 09/03/18 [Duoneb -] Atorvastatin Ca [Lipitor] 40 mg PO HS tablet 09/03/18 Hydrocortisone 0.5% Ointment 1 applic TP BID PRN tube 09/03/18 [Hytone 0.5% Ointment -] Insulin Sliding Scale [Novolog 1 vial SQ ACHS units 09/03/18 Vial Sliding Scale -] Isosorbide Mononitrate [Imdur -] 60 mg PO DAILY tab.sr.24h 09/03/18 Furosemide [Lasix -] 40 mg PO BID@0600,1400 09/24/18 Acetaminophen [Tylenol .Regular 650 mg PO Q6H PRN tablet 09/30/18 Strength -] Apixaban [Eliquis -] 5 mg PO BID #30 tablet MDD 2 12/04/18 Digoxin [Lanoxin -] 0.125 mg PO DAILY #30 tablet MDD 1 12/04/18 Losartan Potassium [Cozaar -] 25 mg PO DAILY #30 tablet MDD 1 12/04/18 hydrOXYzine HCL [Atarax -] 25 mg PO Q6H PRN tablet 12/04/18 Insulin Glargine,Hum.rec.anlog 34 unit SQ HS 06/27/19 [Basaglar Kwikpen U-100] Metoprolol Succinate [Toprol XL -] 25 mg PO DAILY 06/27/19 predniSONE [Deltasone -] 10 mg PO DAILY 06/27/19 traZODone HCL [Trazodone HCl] 100 mg PO DAILY 06/27/19 Budesonide/Formeterol Fumarate 2 puff IH BID #1 inhaler 07/10/19 [SYMBICORT 80/4.5mcg -] Folic Acid - 1 mg PO DAILY #30 tablet 07/10/19 Pantoprazole Sodium [Protonix -] 20 mg PO DAILY #30 tablet.ec 07/10/19 Polyethylene Glycol 3350 [Miralax 17 gm PO DAILY #1 bottle 07/10/19 119 gm Btl -] Thiamine HCl [Vitamin B1 -] 100 mg PO DAILY #30 tablet 07/10/19 metroNIDAZOLE [Flagyl -] 250 mg PO TID #21 tablet 07/10/19 Potassium Chloride [K-Dur -] 20 meq PO BID tablet.er 07/12/19 Allergies Allergy/AdvReac Type Severity Reaction Status Date / Time Iodinated Contrast Media AdvReac Intermediate Nausea Verified 07/22/19 15:59 REVIEW OF SYSTEMS: CONSTITUTIONAL: Absent: fever, chills CARDIOVASCULAR: Absent: chest pain RESPIRATORY: Absent: cough GASTROINTESTINAL: Absent: abdominal pain PHYSICAL EXAM: GENERAL: Awake, alert, and fully oriented, in no acute distress. HEAD: Normal with no signs of trauma. LOWER EXTREMITIES: b/l le hyperpigmentation, +skin wrinkling, no open ulcers, no increased warmth noted. Vasc: 2+ dp's b/l, PTs not appreciated. Feet warm, well perfused. Vital Signs Temperature 97.5 F L 07/28/19 10:00 Pulse Rate 79 07/28/19 10:21 Respiratory Rate 20 07/28/19 10:00 Blood Pressure 111/64 07/28/19 10:00 O2 Sat by Pulse Oximetry (%) 97 07/28/19 09:00 Lab Results WBC 9.3 K/mm3 (4.0-10.0) 07/28/19 05:15 RBC 3.97 M/mm3 (4.00-5.60) L 07/28/19 05:15 Hgb 11.6 GM/dL (11.7-16.9) L 07/28/19 05:15 Hct 35.3 % (35.4-49) L 07/28/19 05:15 MCV 89.0 fl (80-96) 07/28/19 05:15 MCHC 32.7 g/dl (32.0-35.9) 07/28/19 05:15 RDW 19.4 % (11.9-15.9) H 07/28/19 05:15 Plt Count 166 K/MM3 (134-434) 07/28/19 05:15 Sodium 137 mmol/L (136-145) 07/28/19 05:15 Potassium 3.7 mmol/L (3.5-5.1) 07/28/19 05:15 Chloride 95 mmol/L (98-107) L 07/28/19 05:15 Carbon Dioxide 33 mmol/L (21-32) H 07/28/19 05:15 Anion Gap 8 MMOL/L (8-16) 07/28/19 05:15 BUN 29.4 mg/dL (7-18) H 07/28/19 05:15 Creatinine 1.0 mg/dL (0.55-1.3) 07/28/19 05:15 Random Glucose 101 mg/dL (74-106) 07/28/19 05:15 Calcium 8.2 mg/dL (8.5-10.1) L 07/28/19 05:15 INR 1.13 (0.83-1.09) H 07/22/19 17:47 A/P: 64 y/o M w/ PMhX of HTN, HLD, DM, CHF, COPD, afib on eliquis a/w lower extremity edema and SOB. Vascular consulted for evaluation of PAD. Pt with chronic venous stasis changes, no open ulcers ?history of prior vascular intervention Palpable dp pulses -No acute vascular intervention -recommend le elevation while at rest -Pt should f/u with Dr Browning upon discharge for a vascular evaluation/duplex to assess prior stents placed at [facility] (has no planned f/u) -Continue statin d/w attending Dr Browning
[2019-07-28] MEDS: GABAPENTIN 100 MG CAPSULE (FP) PO SCH ×2 (13:59→21:28)
[2019-07-28] MEDS: ATORVASTATIN CA 40 MG TABLET (FP) PO SCH (21:27)
[2019-07-28] MEDS: MONTELUKAST NA 10 MG TABLET PO SCH (21:28)
[2019-07-28] MEDS ORDERED: INSULIN (LEVEMIR) 100 UNITS/ML UNITS SQ ONE (21:39)
[2019-07-28] MEDS: INSULIN (LEVEMIR) 100 UNITS/ML UNITS SQ SCH (21:42)
[2019-07-28] MEDS: MELATONIN 1 MG TABLET PO SCH (23:46)
[2019-07-29] MEDS: MAG HYDROX/ALH/SMC/DPHA/LIDO 240 ML MOUTHWASH MM SCH ×3 (00:30→12:04)
[2019-07-29] MEDS: NYSTATIN 500,000 UNITS/5 ML SUSPENSION PO SCH ×3 (00:30→12:05)
[2019-07-29] MEDS: CEFAZOLIN 1 GM in DEXTROSE 5%-WATER - 50 ML IVPB SCH (02:00)
[2019-07-29] MEDS ORDERED: ceFAZolin SODIUM 1 GM VIAL ONE (02:48)
[2019-07-29] MEDS ORDERED: DEXTROSE 5%-WATER - 50 ML IVPB ONE (02:48)
[2019-07-29] MEDS: GABAPENTIN 100 MG CAPSULE (FP) PO SCH ×2 (06:29→13:09)
[2019-07-29] MEDS: INSULIN SLIDING SCALE (NOVOLOG) 1 VIAL SQ SCH ×2 (06:31→12:02)
[2019-07-29] MEDS ORDERED: PT OWN MED DRAWER 7, Y5N ONE (06:35)
[2019-07-29 08:48] LABS: ALBUMIN 2.7 g/dl (3.4-5.0); BILIRUBIN,TOTAL 0.6 mg/dL (0.2-1); BLOOD UREA NITROGEN 29.2 mg/dL (7-18); CALCIUM 7.9 mg/dL (8.5-10.1); POTASSIUM 3.2 mmol/L (3.5-5.1); TOT PROT 6.8 g/dl (6.4-8.2)
--- NOTE | 2019-07-29 09:10 | DS ---
Physical Examination Vital Signs: Vital Signs Temperature 98.1 F 07/29/19 05:55 Pulse Rate 78 07/29/19 05:55 Respiratory Rate 20 07/29/19 05:55 Blood Pressure 126/77 07/29/19 05:55 O2 Sat by Pulse Oximetry (%) 98 07/28/19 21:00 Cardiovascular: Yes: S1, S2 Respiratory: Yes: Regular, CTA Bilaterally Gastrointestinal: Yes: Normal Bowel Sounds, Soft Extremities: Yes: Other (not warm less swelling) Edema: Yes Labs: CBC, BMP 07/28/19 05:15 07/29/19 05:56 Discharge Summary Reason For Visit: CONGESTIVE HEART FAILURE, CHRONIC OBSTRUCTIVE Current Active Problems CHF (congestive heart failure) (Acute) COPD with acute exacerbation (Acute) Chronic atrial fibrillation with RVR (Acute) Constipation (Acute) Diabetes (Acute) GERD (gastroesophageal reflux disease) (Acute) Rash (Acute) Urticarial rash (Acute) Hospital Course: - Problems (1) Acute on chronic diastolic CHF (congestive heart failure) Assessment/Plan: iv lasix bid--po demadex replete lytes Code(s): I50.33 - ACUTE ON CHRONIC DIASTOLIC (CONGESTIVE) HEART FAILURE (2) Atrial fibrillation Assessment/Plan: digoxin elilquis metoprolol toprol dose increased Code(s): I48.91 - UNSPECIFIED ATRIAL FIBRILLATION Qualifiers: Atrial fibrillation type: persistent Qualified Code(s): I48.1 - Persistent atrial fibrillation (3) Cellulitis Assessment/Plan: iv abx- cefazolin cellutis improving ID ob board vascular consult Code(s): L03.90 - CELLULITIS, UNSPECIFIED (4) COPD (chronic obstructive pulmonary disease) Assessment/Plan: bronchodilators singulair Code(s): J44.9 - CHRONIC OBSTRUCTIVE PULMONARY DISEASE, UNSPECIFIED Qualifiers: COPD type: unspecified COPD Qualified Code(s): J44.9 - Chronic obstructive pulmonary disease, unspecified (5) Diabetes Assessment/Plan: bgm levemir Code(s): E11.9 - TYPE 2 DIABETES MELLITUS WITHOUT COMPLICATIONS Qualifiers: Diabetes mellitus type: type 2 (6) Rash Assessment/Plan: lotrin nystatin bendaryl cream rash improved Code(s): R21 - RASH AND OTHER NONSPECIFIC SKIN ERUPTION Condition: Stable - Instructions Diet, Activity, Other Instructions: need blood test on Saturday to check potassium Referrals: Jessica Wooten MD [Primary Care Provider] - 1 Week Disposition: VNS/HOME HEALTH CARE - Home Medications Comprehensive Discharge Medication List: Ambulatory Orders Acetaminophen [Tylenol .Regular Strength -] 650 mg PO Q6H PRN tablet 09/30/18 Polyethylene Glycol 3350 [Miralax 119 gm Btl -] 17 gm PO DAILY #1 bottle Albuterol 2.5/Ipratropium 0.5 [Duoneb -] 1 amp NEB Q6H PRN #120 amp 07/29/19 Apixaban [Eliquis -] 5 mg PO BID #30 tablet MDD 2 07/29/19 Atorvastatin Ca [Lipitor] 40 mg PO HS #30 tablet 07/29/19 Budesonide/Formeterol Fumarate [SYMBICORT 80/4.5mcg -] 2 puff IH BID #1 inhaler 07/29/19 Cephalexin Monohydrate [Keflex -] 500 mg PO BID #10 capsule 07/29/19 Digoxin [Lanoxin -] 0.125 mg PO DAILY #30 tablet MDD 1 07/29/19 Gabapentin [Neurontin -] 100 mg PO TID #90 capsule 07/29/19 Isosorbide Mononitrate [Imdur -] 60 mg PO DAILY #30 tab.sr.24h 07/29/19 Losartan Potassium [Cozaar -] 25 mg PO DAILY #30 tablet MDD 1 07/29/19 Magnesium Oxide [Mag-Ox -] 400 mg PO BID #60 tablet 07/29/19 Metoprolol Succinate [Toprol XL -] 50 mg PO DAILY #30 tab.sr.24h 07/29/19 Montelukast Na [Singulair -] 10 mg PO HS #30 tablet 07/29/19 Pantoprazole Sodium [Protonix -] 20 mg PO DAILY #30 tablet.ec 07/29/19 Torsemide [Demadex -] 40 mg PO BID #120 tablet 07/29/19 hydrOXYzine HCL [Atarax -] 25 mg PO Q6H PRN #60 tablet 07/29/19 traZODone HCL [Trazodone HCl] 100 mg PO DAILY #15 tablet 07/29/19
[2019-07-29 09:26] LABS: MAGNESIUM 1.4 mg/dL (1.8-2.4)
[2019-07-29] MEDS ORDERED: POTASSIUM CHLORIDE TABS 20 MEQ TABLET.ER (FP) PO ONE (09:30)
[2019-07-29] MEDS ORDERED: traZODone HCL 50 MG TABLET (FP) ONE (09:49)
[2019-07-29] MEDS ORDERED: POTASSIUM CHLORIDE TABS 20 MEQ TABLET.ER (FP) PO SCH (10:00)
[2019-07-29] MEDS: DIGOXIN 0.125 MG TABLET (FP) PO SCH (10:15)
[2019-07-29] MEDS: LOSARTAN POTASSIUM 25 MG TABLET PO SCH (10:17)
[2019-07-29] MEDS: APIXABAN 5 MG TABLET PO SCH (10:17)
[2019-07-29] MEDS: traZODone HCL 100 MG TABLET (FP) PO SCH (10:17)
[2019-07-29] MEDS: ISOSORBIDE MONONITRATE 60 MG TAB.SR.24H (FP) PO SCH (10:18)
[2019-07-29] MEDS: MAGNESIUM OXIDE 400 MG TABLET (FP) PO SCH (10:18)
[2019-07-29] MEDS: TORSEMIDE 20 MG TABLET (FP) PO SCH (10:18)
[2019-07-29] MEDS: PANTOPRAZOLE 20 MG TABLET (FP) PO SCH (10:18)
[2019-07-29] MEDS: NYSTATIN 100,000 UNIT/GM TOPICAL CREAM 15 GM TUBE TP SCH (10:19)
[2019-07-29] MEDS: BUDESONIDE/FORMETEROL FUMARATE 80/4.5 mcg INHALER IH SCH (10:20)
[2019-07-29] MEDS: POLYETHYLENE GLYCOL 3350 119 GM BTL PO SCH (10:20)
[2019-07-29] MEDS: CLOTRIMAZOLE/BETAMET DIPROP 15 GM TUBE TP SCH (10:21)
[2019-07-29] MEDS ORDERED: MAGNESIUM OXIDE 400 MG TABLET (FP) PO SCH (11:09)
[2019-07-29] MEDS ORDERED: POTASSIUM CHLORIDE ORAL LIQUID 20 MEQ/15 ML PO ONE (13:30)
[2019-07-29 14:20] VITALS: BP 138/76; PULSE 83; TEMP 98
== END 2019-07-29 14:23 | disposition home health service (06) | DRG 602 ==
LOC: JER 15:57 → JERBED 21:21 → J4W 07-23 00:25
PROVIDERS: ADMIT Family Medicine; ATTEND Family Medicine
DX: L03.115 Cellulitis of right lower limb (principal); I50.33 Acute on chronic diastolic (congestive) heart failure; I48.1 Persistent atrial fibrillation; I42.8 Other cardiomyopathies; K21.9 Gastro-esophageal reflux disease without esophagitis; R21 Rash and other nonspecific skin eruption; I25.10 Atherosclerotic heart disease of native coronary artery without angina pectoris; I11.0 Hypertensive heart disease with heart failure; L25.9 Unspecified contact dermatitis, unspecified cause; D72.829 Elevated white blood cell count, unspecified; E78.5 Hyperlipidemia, unspecified; J44.9 Chronic obstructive pulmonary disease, unspecified; D64.9 Anemia, unspecified; F41.8 Other specified anxiety disorders; K59.09 Other constipation; E11.9 Type 2 diabetes mellitus without complications; G47.30 Sleep apnea, unspecified; Z91.14 Patient's other noncompliance with medication regimen; Z87.891 Personal history of nicotine dependence; Z95.5 Presence of coronary angioplasty implant and graft
CPT/HCPCS: 36415; 71045-TC-FY; 80048; 80053; 80162; 82465; 82550; 82962; 83036; 83735; 83880; 84484; 85025; 85610; 85730; 87040; 93005; 93010; 93970-TC; 97116-GP; 97161-GP; 99284-25